=== PATIENT | female | born 1990 | race African-American/Black ===

== ENCOUNTER 2018-07-29 10:29 | Emergency (ER) | payer BC ==
[~2018-07-29] VITALS: Ht 167.6 cm; Wt 113.4 kg
[~2018-07-29 10:29] MED LIST: FERROUS SULFAT325 MG PO; LABETALOL HCL100 MG PO; NIFEDIPINE ER30 M1 PO; PEPCID20 MG PO; ZOFRAN ODT4 MG PO
[2018-07-29] MEDS ORDERED: DEXAMETHASONE SOD PHOS 10 MG/1 ML VIAL INJ ONE (10:45)
[2018-07-29] MEDS ORDERED: SODIUM CHLORIDE 0.9% 1000ML 1,000 ML IV STA (10:45)
[2018-07-29] MEDS ORDERED: IBUPROFEN 600 MG TAB PO STA (10:45)
[2018-07-29] MEDS ORDERED: CEFTRIAXONE SOD 1 GM VIAL IV SCH (11:00)
[2018-07-29 11:28] LABS: BASOPHILS % 0.2 % (0.0-1.0); HEMATOCRIT 31.6 % (34.2-44.1); HEMOGLOBIN 10.1 g/dL (12.0-16.0); LYMPHOCYTES # (AUTO) 1.9 (1.0-3.2); LYMPHOCYTES % 19.3 % (18.0-39.1); MEAN CORPUSCULAR HEMOGLOBIN 30.4 pg (28-32); MEAN CORPUSCULAR VOLUME 95.2 fL (81-99); MONOCYTES # (AUTO) 0.4 (0.2-0.8); MONOCYTES % 4.3 % (4.4-11.3); NEUTROPHILS # (AUTO) 7.3 (2.1-6.9); NEUTROPHILS % 75.8 % (38.7-80.0); PLATELET COUNT 249 x10e3/uL (140-360); RED BLOOD COUNT 3.32 x10e6/uL (3.6-5.1); RED CELL DISTRIBUTION WIDTH 13.5 % (11.7-14.4)
[2018-07-29 11:48] LABS: ALANINE AMINOTRANSFERASE 12 IU/L (0-55); ALBUMIN 2.9 g/dL (3.5-5.0); ALBUMIN/GLOBULIN RATIO 0.5 (0.8-2.0); ALKALINE PHOSPHATASE 20 IU/L (40-150); ANION GAP 8.4 mmol/L (8-16); BLOOD UREA NITROGEN 13 mg/dL (7-26); BUN/CREATININE RATIO 12 (6-25); CALCIUM 8.7 mg/dL (8.4-10.2); CARBON DIOXIDE 26 mmol/L (22-29); CHLORIDE 101 mmol/L (98-107); CREATININE, SERUM 1.11 mg/dL (0.57-1.11); EST GLOMERULAR FILTRATION RATE > 60 ML/MIN (60-); GLUCOSE 124 mg/dL (74-118); LIPASE 52 U/L (8-78); POTASSIUM 3.4 mmol/L (3.5-5.1); SODIUM 132 mmol/L (136-145)
[2018-07-29 12:08] LABS: THYROID STIMULATING HORMONE 4.481 uIU/mL (0.350-4.940)
[2018-07-29 12:09] LABS: STREPTOCOCCUS GRP A ANTIGEN NEGATIVE (NEGATIVE)
[2018-07-29 12:22] LABS: INFLUENZAE A&B ANTIGEN (RAPID) NEGATIVE (NEGATIVE)
[2018-07-29] MEDS ORDERED: ACETAMINOPHEN 325 MG TAB ONE (13:16)
[2018-07-29 13:17] LABS: CLARITY,URINE SL CLOUDY (CLEAR); COLOR,URINE YELLOW (YELLOW); LEUKOCYTE ESTERASE ,URINE TRACE (NEGATIVE); NITRITE,URINE NEGATIVE (NEGATIVE); PROTEIN,URINE DIPSTICK TRACE (NEGATIVE)
[2018-07-29 13:18] LABS: BILIRUBIN,URINE NEGATIVE (NEGATIVE); KETONES,URINE NEGATIVE (NEGATIVE); URINE UROBILINOGEN 0.2 mg/dL (0.2 - 1)
[2018-07-29 13:32] LABS: BACTERIA,URINE RARE /HPF; EPITHELIAL CELLS,URINE FEW /LPF
[2018-07-29] MEDS ORDERED: ACETAMINOPHEN 325 MG TAB PO ONE (14:00)
[2018-07-29 15:03] VITALS: BP 127/90
== END 2018-07-29 15:15 | disposition home or self-care (01) ==
LOC: ER 10:29
DX: R50.9 Fever, unspecified (principal); J02.9 Acute pharyngitis, unspecified; M54.2 Cervicalgia
CPT/HCPCS: 36415; 80053; 81001; 83518; 83690; 84443; 85025; 86308; 87070; 87086; 87400; 99284; J0696; J1100; J7030

== ENCOUNTER 2018-12-14 23:09 | Emergency (ER) | payer BC ==
[~2018-12-14] VITALS: Ht 167.6 cm; Wt 113.4 kg
[2018-12-15 00:41] LABS: CLARITY,URINE CLOUDY (CLEAR); COLOR,URINE YELLOW (YELLOW); LEUKOCYTE ESTERASE ,URINE NEGATIVE (NEGATIVE); NITRITE,URINE NEGATIVE (NEGATIVE)
[2018-12-15 00:42] LABS: BILIRUBIN,URINE NEGATIVE (NEGATIVE); KETONES,URINE NEGATIVE (NEGATIVE); PROTEIN,URINE DIPSTICK TRACE (NEGATIVE); URINE UROBILINOGEN 0.2 mg/dL (0.2 - 1)
[2018-12-15 00:43] LABS: PREGNANCY TEST, URINE NEGATIVE (NEGATIVE)
[2018-12-15 00:44] LABS: BACTERIA,URINE MODERATE /HPF; RBC,URINE >50 /HPF (0-5); WBC,URINE (MAN) 21-50 /HPF (0-5)
[2018-12-15 00:45] LABS: EPITHELIAL CELLS,URINE FEW /LPF
== END 2018-12-15 01:02 | disposition home or self-care (01) ==
LOC: ER 23:09
DX: N64.59 Other signs and symptoms in breast (principal); N30.90 Cystitis, unspecified without hematuria; I10 Essential (primary) hypertension
CPT/HCPCS: 81001; 81025; 99283

== ENCOUNTER 2019-02-09 18:52 | Emergency (ER) | payer BC ==
[~2019-02-09] VITALS: Ht 167.6 cm; Wt 113.4 kg
--- OUTSIDE RECORDS SUMMARY | 2019-02-09 18:54 | XMS REPORT ---
[facility] Address Unknown Phone Unavailable Care Team Providers Care Mononitrotoluene Operator Name Role Phone Unavailable Unavailable Problems This patient has no known problems. Allergies, Adverse Reactions, Alerts This patient has no known allergies or adverse reactions. Medications This patient has no known medications. Results Test Description Test Time Test Comments Text Results Atomic Results Result Comments BREAST ULTRASOUND BILATERAL 2018-12-17 10:04:00 - DIAG MAMM BILATERAL AYESHA CAD DIGITALBILATERAL FIRST EVER DIGITAL DIAGNOSTIC MAMMOGRAM 3D/2D WITH CAD: 12/17/2018CLINICAL: Nipple discharge, right breast, brown. Digital breast tomosynthesis was performed in addition to routine CC and MLO views. Current mammographic images were evaluated by either a [employer] M-Vu or a [employer] ImageChecker CAD (computer aided detection system). No prior exams were av ailable for comparison. This is a baseline exam.There are scattered fibroglandular tissues in both breasts. No suspicious mass, architectural distortion, malignant type calcification, or lymph node abnormality detected. INCOMPLETE ASSESSMENT: ADDITIONAL IMAGING EVALUATION RECOMMENDEDThere is no mammographic evidence of malignancy. Breast ultrasound to follow.- BREAST ULTRASOUND BILATERALULTRASOUND OF BOTH BREASTS: 12/17/2018No prior exams were available for comparison. Real-time ultrasound of both breasts was performed. No abnormalities were seen sonographically in either breast. There is bilateral axillary adenopathy with nodes exhibiting cortical thickening. IMPRESSION: BENIGN No breast abnormality is noted.Evidence of bilateral enlarged axillary lymph nodes exhibiting cortical thickening. The patient relates a history of rheumatoid arthritis, the possible etiology of this finding. Clinical follow up is recommended. There is no sonographic evidence of breast malignancy. Follow- up with ACR guidelines. aNseem Reese M.D. rb/:12/17/2018 10:04:00 Pipe Smoker Machine Operator: Sandra TAY, [facility]-FWletter sent: BIRADS 1-2 Combo FU Letter Mammogram BI-RADS: 0 Indeterminate Ultrasound BI- RADS: 2 Benign DIAG MAMM BILATERAL AYESHA CAD DIGITAL 2018-12-17 10:04:00 - DIAG MAMM BILATERAL AYESHA CAD DIGITALBILATERAL FIRST EVER DIGITAL DIAGNOSTIC MAMMOGRAM 3D/2D WITH CAD: 12/17/2018CLINICAL: Nipple discharge, right breast, brown. Digital breast tomosynthesis was performed in addition to routine CC and MLO views. Current mammographic images were evaluated by either a [employer] M-Vu or a [employer]Checker CAD (computer aided detection system). No prior exams were av ailable for comparison. This is a baseline exam.There are scattered fibroglandular tissues in both breasts. No suspicious mass, architectural distortion, malignant type calcification, or lymph node abnormality detected. INCOMPLETE ASSESSMENT: ADDITIONAL IMAGING EVALUATION RECOMMENDEDThere is no mammographic evidence of malignancy. Breast ultrasound to follow.- BREAST ULTRASOUND BILATERALULTRASOUND OF BOTH BREASTS: 12/17/2018No prior exams were available for comparison. Real-time ultrasound of both breasts was performed. No abnormalities were seen sonographically in either breast. There is bilateral axillary adenopathy with nodes exhibiting cortical thickening. IMPRESSION: BENIGN No breast abnormality is noted.Evidence of bilateral enlarged axillary lymph nodes exhibiting cortical thickening. The patient relates a history of rheumatoid arthritis, the possible etiology of this finding. Clinical follow up is recommended. There is no sonographic evidence of breast malignancy. Follow- up with ACR guidelines. Naseem Reese M.D. rb/:12/17/2018 10:04:00 Pipe Smoker Machine Operator: Sandra TAY, [facility]-FWletter sent: BIRADS 1-2 Combo FU Letter Mammogram BI-RADS: 0 Indeterminate Ultrasound BI- RADS: 2 Benign
[2019-02-09] MEDS ORDERED: ASPIRIN 81 MG CHEW TAB PO ONE (19:30)
[2019-02-09 20:48] LABS: BILIRUBIN,URINE NEGATIVE (NEGATIVE); CLARITY,URINE SL CLOUDY (CLEAR); COLOR,URINE YELLOW (YELLOW); KETONES,URINE NEGATIVE (NEGATIVE); LEUKOCYTE ESTERASE ,URINE NEGATIVE (NEGATIVE); NITRITE,URINE NEGATIVE (NEGATIVE); PROTEIN,URINE DIPSTICK NEGATIVE (NEGATIVE); URINE UROBILINOGEN 0.2 mg/dL (0.2 - 1)
--- NOTE | 2019-02-09 20:49 | Diagnostic Imaging Report ---
EXAMINATION: CHEST SINGLE (PORTABLE) INDICATION: ^CHEST PAIN ^Y COMPARISON: None FINDINGS: AP view TUBES and LINES: None. LUNGS/PLEURA: The lungs are clear. No pleural effusion or pneumothorax. HEART AND MEDIASTINUM: The cardiomediastinal silhouette is unremarkable. BONES AND SOFT TISSUES: No acute osseous lesion. Soft tissues are unremarkable. UPPER ABDOMEN: No free air under the diaphragm. IMPRESSION: No acute thoracic abnormality. Signed by: Aris Camacho MD on 02/09/2019 8:46 PM
[2019-02-09 20:58] LABS: BACTERIA,URINE MANY /HPF; EPITHELIAL CELLS,URINE FEW /LPF; RBC,URINE 21-50 /HPF (0-5)
--- NOTE | 2019-02-09 21:45 | NUR ---
GAVE PERMISSION FOR PT TO TAKE HOME BP MEDICATIONS. PT TOOK NIFEDIPINE 60MG AND LABETOLOL 200MG. BP 165/94; HR 89.
[2019-02-09 22:13] LABS: BASOPHILS % 0.2 % (0.0-1.0); HEMATOCRIT 31.1 % (34.2-44.1); HEMOGLOBIN 9.8 g/dL (12.0-16.0); LYMPHOCYTES # (AUTO) 1.6 (1.0-3.2); LYMPHOCYTES % 34.8 % (18.0-39.1); MEAN CORPUSCULAR HEMOGLOBIN 30.2 pg (28-32); MEAN CORPUSCULAR HGB CONC 31.5 g/dL (31-35); MEAN CORPUSCULAR VOLUME 95.7 fL (81-99); MONOCYTES # (AUTO) 0.3 (0.2-0.8); MONOCYTES % 6.3 % (4.4-11.3); NEUTROPHILS # (AUTO) 2.6 (2.1-6.9); NEUTROPHILS % 58.5 % (38.7-80.0); PLATELET COUNT 230 x10e3/uL (140-360); RED BLOOD COUNT 3.25 x10e6/uL (3.6-5.1); RED CELL DISTRIBUTION WIDTH 13.3 % (11.7-14.4)
[2019-02-09 22:29] LABS: INR 0.94; PROTHROMBIN TIME 13.1 seconds (11.9-14.5)
[2019-02-09 22:30] LABS: PARTIAL THROMBOPLASTIN TIME 26.8 seconds (23.8-35.5)
[2019-02-09 22:38] LABS: ALANINE AMINOTRANSFERASE 15 IU/L (0-55); ALBUMIN 3.5 g/dL (3.5-5.0); ALBUMIN/GLOBULIN RATIO 0.6 (0.8-2.0); ALKALINE PHOSPHATASE 22 IU/L (40-150); ANION GAP 8.5 mmol/L (8-16); BLOOD UREA NITROGEN 15 mg/dL (7-26); BUN/CREATININE RATIO 15 (6-25); CALCIUM 8.8 mg/dL (8.4-10.2); CARBON DIOXIDE 26 mmol/L (22-29); CHLORIDE 103 mmol/L (98-107); CREATINE KINASE 274 IU/L (29-168); CREATININE, SERUM 0.97 mg/dL (0.57-1.11); EST GLOMERULAR FILTRATION RATE > 60 ML/MIN (60-); GLUCOSE 87 mg/dL (74-118); POTASSIUM 3.5 mmol/L (3.5-5.1); SODIUM 134 mmol/L (136-145)
[2019-02-09 23:19] VITALS: BP 151/92
== END 2019-02-09 23:23 | disposition home or self-care (01) ==
LOC: ER 18:52
DX: R42 Dizziness and giddiness (principal); R51 Headache; I10 Essential (primary) hypertension; D50.0 Iron deficiency anemia secondary to blood loss (chronic)
CPT/HCPCS: 36415; 71045; 80053; 81001; 81025; 82550; 82553; 83880; 84484; 85025; 85610; 85730; 93005; 99283

== ENCOUNTER 2019-07-22 08:06 | Observation (INO) | payer BC ==
[~2019-07-22] VITALS: Ht 167.6 cm; Wt 122.5 kg
[2019-07-22] MEDS ORDERED: SODIUM CHLORIDE 0.9% 1000ML 1,000 ML IV STA (08:38)
[2019-07-22] MEDS ORDERED: KETOROLAC TROMETHAMINE 30 MG/ML VIAL IV STA (08:38)
[2019-07-22 08:41] LABS: BILIRUBIN,URINE NEGATIVE (NEGATIVE); CLARITY,URINE CLEAR (CLEAR); COLOR,URINE YELLOW (YELLOW); KETONES,URINE NEGATIVE (NEGATIVE); LEUKOCYTE ESTERASE ,URINE NEGATIVE (NEGATIVE); NITRITE,URINE NEGATIVE (NEGATIVE); PREGNANCY TEST, URINE NEGATIVE (NEGATIVE); PROTEIN,URINE DIPSTICK NEGATIVE (NEGATIVE); URINE UROBILINOGEN 0.2 mg/dL (0.2 - 1)
[2019-07-22] MEDS ORDERED: LABETALOL HCL 200 MG TAB PO ONE (08:45)
[2019-07-22 09:04] LABS: BASOPHILS % 0.3 % (0.0-1.0); HEMATOCRIT 30.1 % (34.2-44.1); LYMPHOCYTES # (AUTO) 1.4 (1.0-3.2); LYMPHOCYTES % 35.8 % (18.0-39.1); MEAN CORPUSCULAR HEMOGLOBIN 30.7 pg (28-32); MEAN CORPUSCULAR HGB CONC 33.2 g/dL (31-35); MEAN CORPUSCULAR VOLUME 92.3 fL (81-99); MONOCYTES # (AUTO) 0.3 (0.2-0.8); MONOCYTES % 6.8 % (4.4-11.3); NEUTROPHILS # (AUTO) 2.3 (2.1-6.9); NEUTROPHILS % 57.1 % (38.7-80.0); PLATELET COUNT 183 x10e3/uL (140-360); RED BLOOD COUNT 3.26 x10e6/uL (3.6-5.1); RED CELL DISTRIBUTION WIDTH 13.2 % (11.7-14.4)
[2019-07-22 09:08] LABS: BACTERIA,URINE RARE /HPF; EPITHELIAL CELLS,URINE FEW /LPF; RBC,URINE 0-5 /HPF (0-5); WBC,URINE (MAN) 0-5 /HPF (0-5)
[2019-07-22 09:31] LABS: ALANINE AMINOTRANSFERASE 13 IU/L (0-55); ALBUMIN 3.3 g/dL (3.5-5.0); ALBUMIN/GLOBULIN RATIO 0.6 (0.8-2.0); ALKALINE PHOSPHATASE 18 IU/L (40-150); ANION GAP 7.7 mmol/L (8-16); BLOOD UREA NITROGEN 12 mg/dL (7-26); BUN/CREATININE RATIO 12 (6-25); CALCIUM 8.9 mg/dL (8.4-10.2); CARBON DIOXIDE 27 mmol/L (22-29); CHLORIDE 102 mmol/L (98-107); CREATININE, SERUM 1.04 mg/dL (0.57-1.11); EST GLOMERULAR FILTRATION RATE > 60 ML/MIN (60-); GLUCOSE 96 mg/dL (74-118); POTASSIUM 3.7 mmol/L (3.5-5.1); SODIUM 133 mmol/L (136-145)
[2019-07-22] MEDS ORDERED: DIATRIZOATE MEGL/DIATRIZOA SOD 30 ML BTL PO ONE (09:39)
[2019-07-22 10:01] LABS: LYMPHOCYTES % (MANUAL) 32 % (19-48); MONOCYTES % (MANUAL) 5 % (3.4-9.0); NEUTROPHILS % (MANUAL) 62 % (40-74)
[2019-07-22 10:03] LABS: PLATELET ESTIMATE ADEQUATE
[2019-07-22 10:04] LABS: PLATELET MORPHOLOGY COMMENT NORMAL; POIKILOCYTOSIS SLIGHT; RBC MORPHOLOGY COMMENT ABNORMAL; STOMATOCYTES SLIGHT
--- NOTE | 2019-07-22 10:43 | Diagnostic Imaging Report ---
Exam: Pelvic ultrasound. History: Lower abdominal pain, pelvic pain Comparison: <None.> Findings: Transabdominal and endovaginal sonographic evaluation of the pelvis. The uterus is anteverted in position, measuring 11.3 x 6.1 x 6.9cm. No uterine mass. Endometrial stripe thickness is 4 millimeters. The right ovary measures 3.8 x 2.1 x 1.8 cm and appears unremarkable. Normal arterial and venous waveform. The left ovary is enlarged, measuring 4.9 x 3.8 x 3.5 cm. There is coarse left ovarian echotexture and no discernible arterial waveform. Peripheral 3.2 x 2.1 x 3.7 cm hypoechoic area within the ovary, possibly reflecting peripheral displacement of follicles. Multiple small subcentimeter nabothian cysts in the cervix. Small volume free fluid in the pelvis. Impression: Enlarged left ovary with coarse echotexture, no discernible arterial waveform and possible peripheral displacement of follicles is concerning for left ovarian torsion. Small volume free fluid in the pelvis. Normal right ovary. Normal uterus. The above critical findings were discussed with Dr. Coburn on 07/22/2019 10:26 AM, who responded indicating that the communication was understood. Signed by: Liberty Melendez MD on 07/22/2019 10:40 AM
[2019-07-22] MEDS ORDERED: SODIUM CHLORIDE 0.9% 1000ML 1,000 ML IV ONE (11:15)
[2019-07-22] MEDS ORDERED: MORPHINE SULFATE 2 MG/ML SYR 1ML IV PRN (11:15)
--- NOTE | 2019-07-22 11:24 | Diagnostic Imaging Report ---
EXAM: CT Abdomen and Pelvis WITH intravenous contrast INDICATION: Pelvic pain COMPARISON: Pelvic ultrasound of earlier the same day. TECHNIQUE: Abdomen and pelvis were scanned utilizing a multidetector helical scanner from the lung base to the pubic symphysis after administration of IV contrast. Coronal and sagittal reformations were obtained. Routine protocol was performed. Scan was performed during portal venous phase. IV CONTRAST: 100mL of Isovue 370 ORAL CONTRAST: Water RADIATION DOSE: Total DLP: 876.9 mGy*cm Dose modulation, iterative reconstruction, and/or weight based adjustment of the mA/kV was utilized to reduce the radiation dose to as low as reasonably achievable. FINDINGS: LOWER THORAX: Normal. HEPATOBILIARY: No focal hepatic lesions. No biliary ductal dilatation. The gallbladder appears unremarkable. SPLEEN: No splenomegaly. PANCREAS: No focal masses or ductal dilatation. ADRENALS: No adrenal nodules. KIDNEYS/URETERS: No hydronephrosis, stones, or solid mass lesions. PELVIC ORGANS/BLADDER: The left ovary is enlarged, measuring up to 5.9 cm maximum diameter, and appears hypoenhancing. PERITONEUM / RETROPERITONEUM: Small volume free fluid in the pelvis. LYMPH NODES: Bilateral enlarged inguinal lymph nodes measure up to 1.5 cm short axis. Left pelvic sidewall lymph nodes measure up to 1.5 cm short axis. VESSELS: Unremarkable. GI TRACT: No abnormal bowel wall thickening. No bowel obstruction. Diverticulosis without CT evidence of diverticulitis. Normal appendix. BONES AND SOFT TISSUES: No acute osseous injury. No suspicious lytic or blastic lesions. IMPRESSION: Enlarged hypoenhancing left ovary measuring up to 5.9 cm. This supports the findings of pelvic ultrasound of earlier the same day which are concerning for left ovarian torsion. Small volume free fluid in the pelvis. Bilateral inguinal lymphadenopathy and left pelvic sidewall lymphadenopathy, likely reactive. Signed by: Liberty Melendez MD on 07/22/2019 11:21 AM
[2019-07-22 11:28] LABS: INR 1.02; PROTHROMBIN TIME 13.9 seconds (11.9-14.5)
[2019-07-22 11:29] LABS: PARTIAL THROMBOPLASTIN TIME 28.9 seconds (23.8-35.5)
[2019-07-22 13:00] VITALS: BP 158/95
[2019-07-22 14:12] VITALS: BP 158/95
[2019-07-22 15:46] VITALS: BP 129/75
[2019-07-22] MEDS: ONDANSETRON HCL INJ 2MG/ML 2ML 2 MG/ML VIAL IV PRN (16:40)
[2019-07-22] MEDS: MORPHINE SULFATE INJ 4 MG/ML INJ 1ML IV PRN (16:40)
--- NOTE | 2019-07-22 19:37 | NUR ---
RECEIVED PT IN BED AOX3 .DENIES PAIN /LEFT AC 20G S/L RESPIRATIONS ARE EVEN AND UNLABORED .CALL LIGHT WITH IN REACH .CONTINUE TO MONITOR
[2019-07-22 20:00] VITALS: BP 130/72
[2019-07-23] VITALS (8 sets, daily range): BP systolic 117–148; BP diastolic 75–93
[2019-07-23 05:37] LABS: BASOPHILS % 0.3 % (0.0-1.0); HEMATOCRIT 30.6 % (34.2-44.1); LYMPHOCYTES # (AUTO) 1.3 (1.0-3.2); MEAN CORPUSCULAR HEMOGLOBIN 30.3 pg (28-32); MEAN CORPUSCULAR HGB CONC 32.7 g/dL (31-35); MEAN CORPUSCULAR VOLUME 92.7 fL (81-99); MONOCYTES # (AUTO) 0.4 (0.2-0.8); MONOCYTES % 10.3 % (4.4-11.3); NEUTROPHILS # (AUTO) 1.7 (2.1-6.9); NEUTROPHILS % 50.4 % (38.7-80.0); PLATELET COUNT 153 x10e3/uL (140-360); RED CELL DISTRIBUTION WIDTH 13.4 % (11.7-14.4)
[2019-07-23 06:02] LABS: ALANINE AMINOTRANSFERASE 11 IU/L (0-55); ALBUMIN/GLOBULIN RATIO 0.6 (0.8-2.0); ALKALINE PHOSPHATASE 16 IU/L (40-150); ANION GAP 9.6 mmol/L (8-16); BLOOD UREA NITROGEN 11 mg/dL (7-26); BUN/CREATININE RATIO 11 (6-25); CALCIUM 8.8 mg/dL (8.4-10.2); CARBON DIOXIDE 25 mmol/L (22-29); CHLORIDE 104 mmol/L (98-107); CREATININE, SERUM 1.01 mg/dL (0.57-1.11); EST GLOMERULAR FILTRATION RATE > 60 ML/MIN (60-); GLUCOSE 82 mg/dL (74-118); POTASSIUM 3.6 mmol/L (3.5-5.1); SODIUM 135 mmol/L (136-145)
--- NOTE | 2019-07-23 06:35 | NUR ---
PT RESTED DURING THE NIGHT .DENIES PAIN . Luly LEVINE DID NOT SEE THE PATIENT CALL LIGHT WITH IN REACH .CONTINUE TO MONITOR
--- NOTE | 2019-07-23 06:37 | NUR ---
PT ABD IS DISTENDED .GIVEN MOLASSES ENEMA ABS WAS GIVEN .PT HAD 4 BIG BM .NOTIFIED DR GASTON ABOUT THE OVER DISTENTION OF THE ABD . SAID HE WILL SEE HER TODAY .PT RESTING IV INFUSING .CALL LIGHT WITH IN REACH .CONTINUE TO MONITOR Addendum: 07/23/19 at 0700 by Olvin Bowden RN WRONG PT
--- NOTE | 2019-07-23 07:00 | NUR ---
RECEIVED AM REPORT AND ROUNDS DONE. PT IS ALERT RESTING IN BED, NO S/S OF DISTRESS. CALL LIGHT WITHIN REACH AND INSTRUCTED PT TO CALL NURSE FOR HELP
--- NOTE | 2019-07-23 07:02 | NUR ---
BEDSIDE REPORT GIVEN THE ONCOMING NURSE.
--- NOTE | 2019-07-23 07:33 | NUR ---
H&P PRIMARY CARE PHYSICIAN: Stephen Crocker MD, PhD. CHIEF COMPLAINT: Pelvic pain HISTORY OF PRESENT ILLNESS: This is a 28-year-old woman who developed pelvic pain, with mild nausea; Here suspected ovarian torsion; general partner consulted. PAST MEDICAL HISTORY: Intermittent headaches, epistaxis, severe anemia s/p transfusion, Severe obesity PAST SURGICAL HISTORY: . ALLERGIES: PER ELECTRONIC MEDICAL RECORD. FAMILY/SOCIAL HISTORY: The patient is . She has 2 children. No alcohol, illicits or cigarettes. MEDICATIONS: Per electronic medical record. REVIEW OF SYSTEMS: Denies any dizziness, chest pain, shortness of breath, fever, chills, sweats, nausea, vomiting, diarrhea, headache. PHYSICAL EXAMINATION VITAL SIGNS: Have been reviewed. GENERAL: A tired-appearing woman resting in bed. HEENT: Anicteric. CARDIOVASCULAR: Normal S1 and S2. LUNGS: Moderate breath sounds. No wheezing. ABDOMEN: mildly tender left pelvic region EXTREMITIES: No edema or calf tenderness. NEUROLOGICAL: Alert and oriented times 3. She moves all extremities. SKIN: Dry. PSYCHIATRIC: Normal affect. LABS: Reviewed. MEDICATIONS: Reviewed. ASSESSMENT: 28yoF Left ovarian torsion Pelvic LAD Leukopenia Anemia Severe obesity BMI 43.6 PLAN TYPEWRITER TESTER eval IVF hab1c/lipids SCD Stephen Crocker MD, PhD.
--- NOTE | 2019-07-23 08:11 | NUR ---
CALLED AND LEFT MESSAGE FOR DR DOSS PERTAINING TO PT'S DIET
[2019-07-23 08:27] LABS: CHOL/HDL RATIO 4.6 (3.0-3.6)
[2019-07-23] MEDS: NIFEDIPINE CR 30 MG TAB PO SCH (09:00)
[2019-07-23] MEDS: FERROUS SULFATE 325 MG TAB PO SCH ×2 (09:00→17:00)
[2019-07-23] MEDS: FAMOTIDINE 20 MG TAB PO SCH ×2 (09:00→16:30)
[2019-07-23] MEDS: LABETALOL HCL 100 MG TAB PO SCH (09:00)
[2019-07-23] MEDS: SODIUM CHLORIDE 0.9% 1000ML 1,000 ML IV SCH (10:00)
--- NOTE | 2019-07-23 10:45 | Consultation ---
DATE OF CONSULTATION: 07/23/2019 HISTORY OF PRESENT ILLNESS: She is a 28-year-old, 2, para 2, previous section x2, who came in last menstrual period on 07/05/2019, came into the hospital complaining of left lower quadrant pain for five days, getting worse for which she came to the ER. Her pain is not provoked or relieved by anything that she knows. Her bowel movements are normal. She has no nausea, no vomiting. No dysuria. Her last Pap smear was this month. She had a history also of herpes in the past. No outbreaks in the last 8 to 9 years. PAST MEDICAL HISTORY: Significant for high blood pressure. PAST SURGICAL HISTORY: section x2. ALLERGIES: ALLERGIC TO LEVAQUIN. PHYSICAL EXAMINATION: VITAL SIGNS: Stable. CHEST: Clear to auscultation. CARDIOVASCULAR: Regular rate and rhythm. ABDOMEN: Soft, nontender, but the patient had narcotics recently. REVIEW OF SYSTEMS: She denies any cardiovascular, respiratory, renal, gastrointestinal, hemopoietic, or musculoskeletal problems. ASSESSMENT AND PLAN: The patient's ultrasound showed enlarged left ovary for possible left ovarian torsion. Accordingly, the patient was offered diagnostic laparoscopy. Risks and potential complications were all explained to the patient. The patient understands fully. She will be coming to have her procedure done in due course. Damaris Sutton MD DD/ZACH /[id number]
[2019-07-23 11:13] LABS: BILIRUBIN,URINE NEGATIVE (NEGATIVE); CLARITY,URINE SL CLOUDY (CLEAR); COLOR,URINE YELLOW (YELLOW); KETONES,URINE NEGATIVE (NEGATIVE); LEUKOCYTE ESTERASE ,URINE NEGATIVE (NEGATIVE); NITRITE,URINE NEGATIVE (NEGATIVE); PROTEIN,URINE DIPSTICK NEGATIVE (NEGATIVE); URINE UROBILINOGEN 1 mg/dL (0.2 - 1)
[2019-07-23 11:32] LABS: EPITHELIAL CELLS,URINE MODERATE /LPF; RBC,URINE 0-5 /HPF (0-5)
[2019-07-23 11:33] LABS: BACTERIA,URINE MANY /HPF
[2019-07-23] MEDS: ONDANSETRON HCL INJ 2MG/ML 2ML 2 MG/ML VIAL IV PRN ×2 (11:34→21:15)
[2019-07-23] MEDS: MORPHINE SULFATE INJ 4 MG/ML INJ 1ML IV PRN (11:34)
[2019-07-23 12:27] LABS: LYMPHOCYTES % (MANUAL) 19 % (19-48); MONOCYTES % (MANUAL) 7 % (3.4-9.0); NEUTROPHILS % (MANUAL) 74 % (40-74)
[2019-07-23 12:28] LABS: ANISOCYTOSIS SLIGHT; PLATELET ESTIMATE ADEQUATE; PLATELET MORPHOLOGY COMMENT NORMAL; POIKILOCYTOSIS SLIGHT; RBC MORPHOLOGY COMMENT NORMAL
[2019-07-23 12:40] LABS: OVALOCYTES FEW
[2019-07-23] MEDS ORDERED: BUPIVACAINE 0.25%/EPI 30ML SDV INJ ONE (14:23)
[2019-07-23] MEDS ORDERED: SEVOFLURANE INHAL SOLN 250 ML PEN BTL ONE (15:01)
[2019-07-23] MEDS ORDERED: ROCURONIUM BROMIDE 10 MG/ML 5ML VIAL ONE (15:01)
[2019-07-23] MEDS ORDERED: SUCCINYLCHOLINE 200 MG/10 ML SYR ONE (15:01)
[2019-07-23] MEDS ORDERED: ACETAMINOPHEN 1000 MG/100 ML IV ONE (15:01)
[2019-07-23] MEDS ORDERED: ONDANSETRON HCL INJ 2MG/ML 2ML 2 MG/ML VIAL ONE (15:01)
[2019-07-23] MEDS ORDERED: LIDOCAINE HCL 2% LOCAL INJ 5 ML SDV VIAL INJ ONE (15:01)
[2019-07-23] MEDS ORDERED: FENTANYL CITRATE/PF 100MCG/2 ML INJ ONE (15:01)
[2019-07-23] MEDS ORDERED: DEXAMETHASONE SOD PHOS INJ 4 MG/ML VIAL ONE (15:01)
[2019-07-23] MEDS ORDERED: PROPOFOL IV EMULSION 10 MG/ML 20 ML VIAL ONE (15:01)
[2019-07-23] MEDS ORDERED: MIDAZOLAM HCL 2 MG/2 ML VIAL ONE (15:01)
[2019-07-23] MEDS ORDERED: SUGAMMADEX SODIUM 200 MG/2 ML VIAL IV ONE (15:56)
[2019-07-23] MEDS ORDERED: KETOROLAC TROMETHAMINE 30 MG/ML VIAL ONE (18:03)
[2019-07-23] MEDS ORDERED: HYDROMORPHONE 1MG/1ML INJ ONE (18:09)
[2019-07-23] MEDS ORDERED: KETOROLAC TROMETHAMINE 30 MG/ML VIAL IM ONE (18:30)
--- NOTE | 2019-07-23 19:30 | NUR ---
Patient received sitting up in bed. AAO x 4. Patient had no complaints of pain. No signs of respiratory distress. Fall precautions implemented. Patient instructed to call for assistance or request her pain medication when needed. Call light within reach.
[2019-07-24] VITALS: BP 114/71
[2019-07-24] MEDS: MORPHINE SULFATE INJ 4 MG/ML INJ 1ML IV PRN (03:09)
[2019-07-24 04:00] VITALS: BP 130/80
[2019-07-24] MEDS: SODIUM CHLORIDE 0.9% 1000ML 1,000 ML IV SCH (04:00)
[2019-07-24] MEDS: LABETALOL HCL 100 MG TAB PO SCH (05:29)
[2019-07-24] MEDS: NIFEDIPINE CR 30 MG TAB PO SCH (05:29)
--- NOTE | 2019-07-24 07:15 | NUR ---
Patient resting comfortably. Walking rounds done. Shift report given to oncoming nurse.
[2019-07-24 07:45] VITALS: BP 115/65
[2019-07-24] MEDS: FAMOTIDINE 20 MG TAB PO SCH (08:19)
[2019-07-24] MEDS: FERROUS SULFATE 325 MG TAB PO SCH (08:19)
[2019-07-24 09:30] VITALS: BP 115/65
[2019-07-24] MEDS ORDERED: TYLENOL WITH C1 EACH PO (09:47)
--- NOTE | 2019-07-24 15:17 | Operative Report ---
DATE OF PROCEDURE: SURGEON: Damaris Sutton MD PREOPERATIVE DIAGNOSES: Pelvic pain, torsion of the left ovary. POSTOPERATIVE DIAGNOSES: Pelvic pain, torsion of the left ovary. PROCEDURES: Laparoscopy and left salpingo-oophorectomy. COMPLICATIONS: None. ESTIMATED BLOOD LOSS: Minimal. PROCEDURE IN DETAIL: The patient was taken to the OR. General anesthesia was induced. She was prepped and draped in a normal sterile fashion, placed in dorsal lithotomy position. HUMI self-retaining uterine manipulator was passed through the cervix and into the uterine cavity for manipulation. Uterus was felt enlarged, mobile. No adnexal masses. Following this, 2 Allis clamps were applied to the umbilicus and infraumbilical skin incision was made with a scalpel and bladeless trocar, and cannula of 10 mm was inserted inside the abdominal cavity. Trocar was removed and scope was passed through the sleeve into the abdominal cavity. Two other ports were made in the right side of the abdomen after making 5 mm skin incision with a scalpel and 5 mm bladeless trocar and cannula was passed through the abdominal wall into the abdominal cavity. Another 3rd port was made on the left side of the abdomen after making 5 mm skin incision with scalpel and 5 mm bladeless trocar was passed through the abdominal wall into the abdominal cavity under direct visualization. Trocars were removed and 2 other graspers were inserted inside the abdomen and LigaSure. The following findings, enlarged uterus. Normal right tube and ovary. Left tube and ovary were twisted and adherent to the caudal part of the posterior leaflet of the broad ligament, enlarged hemorrhagic cyst was seen on the left ovary. Started with removing the cyst and adhesions using the LigaSure. Hemostasis was found to be adequate. The blood came out of the ovarian cyst, however, untwisting of the pedicle of the ovary was not successful and accordingly decision was made to carry on with left salpingo-oophorectomy. This was performed uneventfully using LigaSure. Suction irrigation of peritoneal cavity with warm saline. Following this, a 5 mm scope was passed through the side port and EndoCatch was passed through the umbilicus, opened, specimen was placed in the EndoCatch, closed and removed under direct visualization from the umbilical incision. The rectus fascia was approximated at the umbilicus using Vicryl 0 and skin was closed with subcu Vicryl 4-0 and Dermabond at the 4 sites. The patient tolerated the procedure well. Lap, instrument, and needle count was correct x2 at the end of the procedure. Damaris Sutton MD DD/ZACH /[id number]
[2019-07-24] MEDS ORDERED: LABETALOL HCL 100 MG TAB PO SCH (17:30)
[2019-07-24] MEDS ORDERED: NIFEDIPINE CR 30 MG TAB PO SCH (17:30)
== END 2019-07-24 10:09 | disposition home or self-care (01) ==
LOC: ER 08:06 → INTOOBSV 11:13 → ERHOLD 11:13 → MED/SURG2 13:13
PROVIDERS: ADMIT Internal Medicine; ATTEND Internal Medicine
DX: N83.12 Corpus luteum cyst of left ovary (principal); I10 Essential (primary) hypertension; Z82.49 Family history of ischemic heart disease and other diseases of the circulatory system; Z88.1 Allergy status to other antibiotic agents
CPT/HCPCS: 36415 ×2; 58661; 74177; 76830; 76856; 80053 ×2; 80061; 81001 ×2; 81025; 83036; 85025 ×2; 85610; 85730; 87040; 87086; 88305; 93976; 99284; G0378 ×3; J0131; J1100; J1170; J1885 ×2; J2001; J2250; J2270 ×3; J2405 ×2; J2704; J3010; J7030 ×2; 88304

== ENCOUNTER 2019-11-23 18:09 | Emergency (ER) | payer BC ==
[~2019-11-23] VITALS: Ht 167.6 cm; Wt 115.7 kg
[~2019-11-23 18:09] MED LIST changes: +TYLENOL WITH C1 EACH PO
[2019-11-23] MEDS ORDERED: HYDRALAZINE HCL 20 MG/ML VIAL IV STA (18:30)
[2019-11-23] MEDS ORDERED: IBUPROFEN 600 MG TAB PO STA (18:38)
--- NOTE | 2019-11-23 19:04 | Diagnostic Imaging Report ---
Examination: Single AP view of the chest. COMPARISON: None. INDICATION: Chest tightness DISCUSSION: Lines/tubes: None. Lungs: The lungs are well inflated and clear. No pneumonia or pulmonary edema. Pleura: No pleural effusion or pneumothorax. Heart and mediastinum: The heart and the mediastinum are unremarkable. Bones and soft tissues: No acute bony abnormalities. IMPRESSION: 1. No acute cardiopulmonary abnormalities. Signed by: Dr. Ubaldo Cooper M.D. on 11/23/2019 7:01 PM
[2019-11-23 20:03] LABS: BASOPHILS % 0.2 % (0.0-1.0); EOSINOPHILS % 0.2 % (0.0-6.0); HEMATOCRIT 31.4 % (34.2-44.1); HEMOGLOBIN 10.3 g/dL (12.0-16.0); LYMPHOCYTES # (AUTO) 0.9 (1.0-3.2); LYMPHOCYTES % 13.8 % (18.0-39.1); MEAN CORPUSCULAR HGB CONC 32.8 g/dL (31-35); MEAN CORPUSCULAR VOLUME 91.5 fL (81-99); MONOCYTES # (AUTO) 0.3 (0.2-0.8); MONOCYTES % 4.2 % (4.4-11.3); NEUTROPHILS # (AUTO) 5.1 (2.1-6.9); NEUTROPHILS % 81.3 % (38.7-80.0); PLATELET COUNT 196 x10e3/uL (140-360); RED BLOOD COUNT 3.43 x10e6/uL (3.6-5.1); RED CELL DISTRIBUTION WIDTH 13.6 % (11.7-14.4)
[2019-11-23 20:17] LABS: INR 0.98; PROTHROMBIN TIME 13.6 seconds (11.9-14.5)
[2019-11-23 20:18] LABS: PARTIAL THROMBOPLASTIN TIME 27.9 seconds (23.8-35.5)
[2019-11-23 20:21] LABS: ANION GAP 7.9 mmol/L (8-16); BLOOD UREA NITROGEN 12 mg/dL (7-26); BUN/CREATININE RATIO 11 (6-25); CALCIUM 8.8 mg/dL (8.4-10.2); CARBON DIOXIDE 28 mmol/L (22-29); CHLORIDE 100 mmol/L (98-107); CREATININE, SERUM 1.06 mg/dL (0.57-1.11); EST GLOMERULAR FILTRATION RATE > 60 ML/MIN (60-); GLUCOSE 97 mg/dL (74-118); POTASSIUM 3.9 mmol/L (3.5-5.1); SODIUM 132 mmol/L (136-145)
[2019-11-23 21:03] LABS: CREATINE KINASE 397 IU/L (29-168)
[2019-11-23 21:21] LABS: BILIRUBIN,URINE NEGATIVE (NEGATIVE); CLARITY,URINE SL CLOUDY (CLEAR); COLOR,URINE YELLOW (YELLOW); KETONES,URINE NEGATIVE (NEGATIVE); LEUKOCYTE ESTERASE ,URINE NEGATIVE (NEGATIVE); NITRITE,URINE NEGATIVE (NEGATIVE); PROTEIN,URINE DIPSTICK 1+ (NEGATIVE); URINE UROBILINOGEN 1 mg/dL (0.2 - 1)
[2019-11-23 21:27] LABS: BACTERIA,URINE RARE /HPF; EPITHELIAL CELLS,URINE MODERATE /LPF
[2019-11-23 21:36] VITALS: BP 169/99
== END 2019-11-23 21:38 | disposition home or self-care (01) ==
LOC: ER 18:09
DX: R50.9 Fever, unspecified (principal); R05 Cough; J06.9 Acute upper respiratory infection, unspecified; J02.9 Acute pharyngitis, unspecified
CPT/HCPCS: 36415; 71045; 80048; 81001; 82550; 82553; 83518; 84484; 84702; 85025; 85610; 85730; 87070; 87086; 87400; 93005; 99284; J0360

== ENCOUNTER 2019-11-24 20:23 | Emergency (ER) | payer BC ==
[~2019-11-24] VITALS: Ht 167.6 cm; Wt 115.7 kg
[2019-11-24] MEDS ORDERED: ACETAMINOPHEN 325 MG TAB PO ONE (21:30)
[2019-11-24 21:43] LABS: STREPTOCOCCUS GRP A ANTIGEN NEGATIVE (NEGATIVE)
[2019-11-24 21:50] LABS: INFLUENZAE A&B ANTIGEN (RAPID) NEGATIVE (NEGATIVE)
--- NOTE | 2019-11-24 22:20 | Diagnostic Imaging Report ---
EXAMINATION: CHEST SINGLE (NOT PORTABLE) INDICATION: Fever and cough. COMPARISON: 11/23/2019. FINDINGS: TUBES and LINES: None. LUNGS: Lungs are well inflated. Mild perihilar, peribronchial thickening and perihilar streaky densities may reflect viral infection versus reactive airway disease. Increased mild patchy density in the lung bases, left greater than right. Mild prominence of the pulmonary vasculature bilaterally. PLEURA: No pleural effusion or pneumothorax. HEART AND MEDIASTINUM: The cardiac silhouette is mildly enlarged. BONES AND SOFT TISSUES: No acute osseous lesion. Soft tissues are unremarkable. UPPER ABDOMEN: No free air under the diaphragm. IMPRESSION: Mild viral infection versus reactive airway disease. Focal patchy density in the left lung base may represent atelectasis versus developing pneumonia in the proper clinical setting. Signed by: Dr. Maddy Burleson M.D. on 11/24/2019 10:16 PM
== END 2019-11-24 23:34 | disposition home or self-care (01) ==
LOC: ER 20:23
DX: R50.9 Fever, unspecified (principal); R05 Cough; J11.1 Influenza due to unidentified influenza virus with other respiratory manifestations
CPT/HCPCS: 71045; 83518; 87070; 87400; 99283

== ENCOUNTER 2019-11-27 17:02 | Inpatient (IN) | payer BC, OTHER ==
[~2019-11-27] VITALS: Ht 170.2 cm; Wt 121.6 kg
[2019-11-27] MEDS ORDERED: ALBUTEROL SULF 0.083% NEB SOLN 3 ML NEB NEB STA (18:11)
[2019-11-27] MEDS ORDERED: IPRATROPIUM BROMIDE 0.02% 2.5 ML NEB NEB STA (18:11)
[2019-11-27] MEDS ORDERED: ACETAMINOPHEN/CODEINE ELIX 120-12 MG/5 ML UDC PO ONE (18:15)
[2019-11-27] MEDS ORDERED: CEFTRIAXONE SOD 1 GM/NS 50 ML 50 ML IV STA (18:18)
[2019-11-27] MEDS ORDERED: AZITHROMYCIN 500MG/NS 250 ML 250 ML IV STA (18:18)
[2019-11-27] MEDS ORDERED: ACETAMINOPHEN 325 MG TAB PO ONE (18:30)
[2019-11-27 18:49] LABS: BASOPHILS % 0.2 % (0.0-1.0); HEMATOCRIT 30.4 % (34.2-44.1); HEMOGLOBIN 9.7 g/dL (12.0-16.0); LYMPHOCYTES # (AUTO) 1.6 (1.0-3.2); LYMPHOCYTES % 37.6 % (18.0-39.1); MEAN CORPUSCULAR HEMOGLOBIN 29.6 pg (28-32); MEAN CORPUSCULAR HGB CONC 31.9 g/dL (31-35); MEAN CORPUSCULAR VOLUME 92.7 fL (81-99); MONOCYTES # (AUTO) 0.2 (0.2-0.8); MONOCYTES % 4.5 % (4.4-11.3); NEUTROPHILS # (AUTO) 2.4 (2.1-6.9); NEUTROPHILS % 57.5 % (38.7-80.0); PLATELET COUNT 210 x10e3/uL (140-360); RED BLOOD COUNT 3.28 x10e6/uL (3.6-5.1)
[2019-11-27 19:09] LABS: ALANINE AMINOTRANSFERASE 34 IU/L (0-55); ALBUMIN/GLOBULIN RATIO 0.5 (0.8-2.0); ALKALINE PHOSPHATASE 19 IU/L (40-150); BLOOD UREA NITROGEN 13 mg/dL (7-26); BUN/CREATININE RATIO 13 (6-25); CALCIUM 8.1 mg/dL (8.4-10.2); CARBON DIOXIDE 25 mmol/L (22-29); CHLORIDE 104 mmol/L (98-107); CREATININE, SERUM 0.97 mg/dL (0.57-1.11); EST GLOMERULAR FILTRATION RATE > 60 ML/MIN (60-); GLUCOSE 125 mg/dL (74-118); SODIUM 135 mmol/L (136-145)
[2019-11-27] MEDS: SODIUM CHLORIDE 0.9% 1000ML 1,000 ML IV SCH (19:45)
[2019-11-27 20:28] LABS: STREPTOCOCCUS GRP A ANTIGEN NEGATIVE (NEGATIVE)
[2019-11-27 20:37] LABS: INFLUENZAE A&B ANTIGEN (RAPID) NEGATIVE (NEGATIVE)
--- NOTE | 2019-11-27 21:04 | Diagnostic Imaging Report ---
EXAM: CT Chest WITH contrast 11/27/2019 6:11 PM INDICATION: Fever, cough, dyspnea COMPARISON: Chest x-ray, 11/24/2019 TECHNIQUE: Chest was scanned utilizing a multidetector helical scanner from the lung apex through the level of the diaphragm after administration of IV contrast. Thin section reconstructions were obtained with special concentration on the pulmonary arteries. Coronal and sagittal reformations were obtained. Pulmonary embolism protocol was performed. Dose modulation, iterative reconstruction, and/or weight based adjustment of the mA/kV was utilized to reduce the radiation dose to as low as reasonably achievable IV CONTRAST: 100 cc Isovue-370 RADIATION DOSE: Total DLP: 528.33 mGy*cm Estimated effective dose: (DLP x 0.014 x size factor) mSv COMPLICATIONS: None FINDINGS: Examination is somewhat compromised by motion artifact and tissue attenuation artifact. LINES/ TUBES: None. LUNGS AND AIRWAYS: No filling defect is identified within the pulmonary arteries to the segmental level. There are widespread groundglass and tree-in-bud opacities in the upper and lower lobes bilaterally, with dense consolidation seen in the medial right lower lobe and in the lingula. In some areas the opacities appear nodular, measuring 0.6 cm in the right upper lobe (2/51), 1.0 cm in the right lower lobe (2/72), and 1.0 cm in the left upper lobe (2/49) trachea and main bronchi are clear. PLEURA: There is trace right pleural effusion. No pneumothorax. HEART AND MEDIASTINUM: The thyroid gland is normal. There are mildly prominent hilar nodes measuring 0.8 cm on the left and 1.3 cm on the right. There is extensive axillary lymphadenopathy with nodes on the right measuring 2.8 and 1.9 cm short axis, and nodes on the left measuring 1.9 and 2.3 cm with additional slightly smaller nodes present bilaterally. The heart is normal in size.. There is no pericardial effusion. The thoracic aorta is unremarkable. Ascending aorta measures 2.8 cm, normal. Main pulmonary artery measures 3.1 cm, borderline dilated. UPPER ABDOMEN: Included portions of the liver unremarkable. There is borderline splenomegaly with span 14.4 cm. Included portions of the pancreas, adrenals and kidneys show no focal pathology. BONES: No acute or suspicious bony lesions. SOFT TISSUES: Superficial surrounding soft tissue unremarkable. IMPRESSION: 1. There are extensive bilateral airspace opacities, including groundglass opacities, tree-in-bud opacities, nodular opacities and areas of consolidation which are most prominent in the lingula and medial right lower lobe. Findings are most suggestive of severe multifocal pneumonia, possibly atypical viral pneumonia or opportunistic infection. Nodularity and masslike consolidation surrounding the right hilum raises the question of underlying malignancy. 2. There is prominent bilateral axillary lymphadenopathy. There are mildly prominent nodes in both maria teresa. There is trace right pleural effusion. Staff: Carmen Signed by: Dr. Mane Morales M.D. on 11/27/2019 9:01 PM
[2019-11-27 21:06] LABS: ANISOCYTOSIS SLIGHT; HYPOCHROMASIA SLIGHT; LYMPHOCYTES % (MANUAL) 26 % (19-48); MONOCYTES % (MANUAL) 3 % (3.4-9.0); NEUTROPHILS % (MANUAL) 71 % (40-74); PLATELET ESTIMATE ADEQUATE; PLATELET MORPHOLOGY COMMENT NORMAL; RBC MORPHOLOGY COMMENT NORMAL
[2019-11-27] MEDS ORDERED: SODIUM CHLORIDE 0.9% 50ML 50 ML ONE (23:26)
[2019-11-27] MEDS ORDERED: IOPAMIDOL 370 MG/ML 200 ML INFUS..BTL INJ ONE (23:26)
[2019-11-27] MEDS ORDERED: AZITHROMYCIN 500MG/NS 250 ML 250 ML ONE (23:52)
[2019-11-28] VITALS (9 sets, daily range): BP systolic 124–148; BP diastolic 72–89
[2019-11-28] MEDS ORDERED: ACETAMINOPHEN 325 MG TAB PO PRN (01:00)
[2019-11-28] MEDS: ALPRAZOLAM 0.5 MG TAB PO PRN ×2 (02:01→23:40)
[2019-11-28] MEDS: SODIUM CHLORIDE 0.9% 1000ML 1,000 ML IV SCH ×3 (02:58→16:09)
--- NOTE | 2019-11-28 04:25 | NUR ---
RECEIVED PT FROM ER BY STRETCHER, PT ABLE TO AMBULATE TO HOSPITAL BED. PT IS AAOX3, RR EVEN AND NON-LABORED, O2 BY NC AT 3L. NO S/SX OF DISTRESS NOTED. ORIENTED PT TO HOSPITAL ROOM, CALL LIGHT, BED CONTROLS AND LIGHTS, DISCUSSED CO-VID DROPLET ISOLATION, PT VERBALIZED UNDERSTANDING. LEFT PT LAYING SEMI FOWLERS IN BED, BED IN LOW LOCKED POSITION, SIDE RAILS UP X2, CALL LIGHT AND PHONE WITHIN REACH.
--- NOTE | 2019-11-28 05:17 | NUR ---
H&P PRIMARY CARE PHYSICIAN: Stephen Crocker MD, PhD. CHIEF COMPLAINT: sob/cough HISTORY OF PRESENT ILLNESS: This is a 29-year-old woman who developed sob/cough for 1 week. Pt states that her family had flu recently. Pt also had chills but no fever/sweats. No QUIROZ/sore throat. No recent travel. PAST MEDICAL HISTORY: Intermittent headaches, epistaxis, severe anemia s/p transfusion, Obesity, Left ovarian torsion, Pelvic LAD, Leukopenia, Anemia PAST SURGICAL HISTORY: . ALLERGIES: PER ELECTRONIC MEDICAL RECORD. FAMILY/SOCIAL HISTORY: The patient is . She has 2 children. No alcohol, illicits or cigarettes. MEDICATIONS: Per electronic medical record. REVIEW OF SYSTEMS: Denies any dizziness, chest pain, fever, chills, sweats, nausea, vomiting, diarrhea, headache. PHYSICAL EXAMINATION VITAL SIGNS: Have been reviewed. GENERAL: A tired-appearing woman resting in bed. HEENT: Anicteric. CARDIOVASCULAR: Normal S1 and S2. LUNGS: Reduced BS ABDOMEN: mildly tender left pelvic region EXTREMITIES: No edema or calf tenderness. NEUROLOGICAL: Alert and oriented times 3. She moves all extremities. SKIN: Dry. PSYCHIATRIC: Normal affect. LABS: Reviewed. MEDICATIONS: Reviewed. ASSESSMENT: 29yoF Multifocal PNA- ceftriaxone/azithromycin; f/u Coronavirus testing; rapid flu Ground glass opacities- suggest viral or atypical infection Nodular/masslike consolidation at right hilum- reimaging before d/c Sepsis due to PNA- IV abx B/L axillary LAD (Hx pelvic LAD)- RIght pleural effusion- diurese Obesity- hba1c/lipids BMI 36- as above Prop: lovenox; pepcid dispo: f/u studies; Stephen Crocker MD, PhD.
[2019-11-28] MEDS ORDERED: AZITHROMYCIN 500MG/NS 250 ML 250 ML IV SCH (05:30)
[2019-11-28] MEDS ORDERED: CEFTRIAXONE SOD 1 GM/NS 50 ML 50 ML IV SCH (05:30)
--- NOTE | 2019-11-28 07:00 | NUR ---
RECEIVED PATIENT RESTING IN BED NO S/S OF DISTRESS. BED LOW, WHEELS LOCKED, SIDE RAILS X2. CALL LIGHT IN REACH WILL CONTINUE TO MONITOR PATIENT.
[2019-11-28 07:20] LABS: ANION GAP 9.2 mmol/L (8-16); BLOOD UREA NITROGEN 10 mg/dL (7-26); BUN/CREATININE RATIO 12 (6-25); CALCIUM 8.2 mg/dL (8.4-10.2); CARBON DIOXIDE 24 mmol/L (22-29); CHLORIDE 104 mmol/L (98-107); CHOL/HDL RATIO 4.9 (3.0-3.6); CHOLESTEROL 78 MD/DL (0-199); CREATININE, SERUM 0.83 mg/dL (0.57-1.11); EST GLOMERULAR FILTRATION RATE > 60 ML/MIN (60-); GLUCOSE 94 mg/dL (74-118); HDL CHOLESTEROL 16 MG/DL (40-60); LDL CHOLESTEROL 44 MG/DL (60-130); POTASSIUM 4.2 mmol/L (3.5-5.1); SODIUM 133 mmol/L (136-145); TRIGLYCERIDES 90 MG/DL (0-149)
[2019-11-28 07:50] LABS: BASOPHILS % 0.3 % (0.0-1.0); HEMATOCRIT 30.9 % (34.2-44.1); LYMPHOCYTES # (AUTO) 1.7 (1.0-3.2); LYMPHOCYTES % 45.3 % (18.0-39.1); MEAN CORPUSCULAR HEMOGLOBIN 29.7 pg (28-32); MEAN CORPUSCULAR HGB CONC 32.4 g/dL (31-35); MEAN CORPUSCULAR VOLUME 91.7 fL (81-99); MONOCYTES # (AUTO) 0.2 (0.2-0.8); MONOCYTES % 4.3 % (4.4-11.3); NEUTROPHILS # (AUTO) 1.9 (2.1-6.9); NEUTROPHILS % 49.8 % (38.7-80.0); PLATELET COUNT 208 x10e3/uL (140-360); RED BLOOD COUNT 3.37 x10e6/uL (3.6-5.1); RED CELL DISTRIBUTION WIDTH 14.1 % (11.7-14.4)
[2019-11-28 08:16] LABS: ALANINE AMINOTRANSFERASE 36 IU/L (0-55); ALBUMIN/GLOBULIN RATIO 0.5 (0.8-2.0); ALKALINE PHOSPHATASE 18 IU/L (40-150)
[2019-11-28] MEDS: NIFEDIPINE CR 30 MG TAB PO SCH ×2 (09:30→20:23)
[2019-11-28] MEDS: FERROUS SULFATE 325 MG TAB PO SCH ×2 (09:30→16:09)
[2019-11-28] MEDS: FAMOTIDINE 20 MG TAB PO SCH ×2 (09:30→16:09)
--- NOTE | 2019-11-28 11:30 | NUR ---
SPOKE WITH DR. LOVE LAB RESULTS GIVEN. PATIENT NEGATIVE FOR CORONAVIRUS. DR. LOVE SAID OK TO MOVE PATIENT TO ANOTHER FLOOR IF NEEDED.
--- NOTE | 2019-11-28 13:15 | NUR ---
DPA DONE VIA PHONE AND THROUGH RECORDS DUE TO ISOLATION.
--- NOTE | 2019-11-28 15:58 | NUR ---
PATIENT NEGATIVE FOR CORONAVIRUS ON RESPIRATORY PANEL. CORONAVIRUS PCR IS STILL PENDING.
[2019-11-28 17:15] LABS: HIV 1&2 AB SCREEN NON-REACTIVE (NONREACTIVE)
--- NOTE | 2019-11-28 18:33 | Consultation ---
DATE OF CONSULTATION: 11/28/2019 REASON FOR CONSULTATION: To evaluate and assist in managing the patient with fevers and respiratory symptoms. SOURCE OF HISTORY: Information is gathered from the current medical record. I interviewed the patient at the bedside. HISTORY OF PRESENT ILLNESS: She is a 29-year-old woman, who was admitted to the hospital on November 28, 2019, after presenting with complaints of cough and chest tightness. She had been ill for about a week. The patient reports that she did not know that she had fevers until she got to the hospital. She reports that her 6-year-old daughter has been recovering from flu symptoms and is doing well. Her is not ill. She has had no sore throat. No nausea, vomiting, or diarrhea. At presentation, she had a temperature of 100.7 degrees Fahrenheit, later spike into 102.3 degrees Fahrenheit. Her CBC showed on November 27, 2019, a white count of 4.1, a hemoglobin of 9.7, and platelet count 210. Differentials on the white count appear unremarkable. Her serum creatinine was 0.8. Her AST mildly elevated to 53. ALT was normal. Alkaline phosphatase was normal. Serum total protein was found to be 9.2 and albumin 3.0. Test for influenza is reported negative. Group A strep screen is reported negative. Influenza A and B antigen test is reported negative. Influenza A and B, PCR reports are pending. Rhinovirus, RSV, and coronavirus serologies are pending. She had a chest x-ray and a CT of her chest is reported with extensive bilateral airspace opacities including ground glass opacities, tree in bud opacities, and nodular opacities with areas of consolidation, most prominent in the lingula and medial right lower lobe. Findings are suggestive of a severe multifocal pneumonia, possibly atypical viral pneumonia or opportunistic infection. There is prominent bilateral axillary adenopathy with previous right pleural effusion. The patient has been started on treatment with ceftriaxone and azithromycin. She tells me that she is feeling better since presentation to the hospital. She has no history of chronic lung disease, diabetes mellitus, chronic liver or kidney disease. PAST MEDICAL HISTORY: As reported above. She had removal of an ovary due to torsion. She has had two C-sections. SOCIAL HISTORY: She denies smoking. She drinks occasionally. She denies other forms of recreational drug use. FAMILY HISTORY: Positive for hypertension. ALLERGIES: SHE REPORTS ALLERGIC TO LEVOFLOXACIN, WHICH CAUSES HIVES AND DIFFICULTY RESPIRATION. MEDICATIONS: As reported earlier, she is on treatment with ceftriaxone and azithromycin. The rest of her medications are per the medication administration report. REVIEW OF SYSTEMS: The patient is alert. Her sensorium is clear. She appears ill, but nontoxic and is in no acute distress. She is in fairly cheerful mood. She coughs intermittently. No obvious dyspnea at rest. No sore throat. No chest or abdominal pain. No frequency or dysuria. No hematuria. No pruritus or rash. PHYSICAL EXAMINATION: GENERAL: She is an adult woman. She is alert, responsive. She appears nontoxic and is in no acute distress. VITAL SIGNS: In the past 24 hours, she had temperatures up to 102.3 degrees Fahrenheit. Her most recent temperature is 98.3. She is hemodynamically stable. HEENT: She has no gross pallor. No obvious icterus. No oropharyngeal lesions. NECK: Supple. CHEST: Symmetric. Breath sounds are coarse in the lung pressley. HEART: Sounds are regular without a significant murmur. ABDOMEN: Full, soft, and nontender. Bowel sounds are normal. EXTREMITIES: There is no acute erythema of her extremities. LABORATORY DATA: Her white count currently 3.7, hemoglobin 10.0, platelet count 208. Differentials on her white count show 49% neutrophils, 45% lymphocytes, about 3% monocytes. Also, creatinine is 0.8. Liver function tests are normal except for AST of 53. Serum total protein up to 9.2 and albumin 3.0. Blood cultures collected on November 26 are being processed and throat culture is also being processed. Serology reports are pending. CT scan of the chest report has been documented. IMPRESSION: This 29-year-old woman is presenting with signs and symptoms of sepsis associated with bilateral multifocal pneumonia, probably atypical in the current epidemiologic environment, COVID-19 infection needs to be ruled out. The patient also has hyperproteinemia, human immunodeficiency virus infection and associated opportunistic infection should be ruled out. Typical bacterial infection should also be ruled out. I suggest we continue treatment with ceftriaxone and azithromycin. We should get an HIV serology. Follow up on the respiratory pathogen panel that has been sent. Follow up on her other cultures. Maintain the patient in droplet and contact isolation. I have discussed the findings and plans with the patient at the bedside. I have discussed about the patient with the nursing staff. I will discuss about the patient with Dr. Crocker, whom I thank for the consult and opportunity to participate in the patient's care. MD JAELYN Hagen/ZACH /[id number]
[2019-11-28] MEDS: CEFTRIAXONE SOD 1 GM/NS 50 ML 50 ML IV SCH (20:23)
[2019-11-28] MEDS: AZITHROMYCIN 500MG/NS 250 ML 250 ML IV SCH (22:24)
[2019-11-29] VITALS (8 sets, daily range): BP systolic 117–151; BP diastolic 64–82
[2019-11-29] MEDS: SODIUM CHLORIDE 0.9% 1000ML 1,000 ML IV SCH ×3 (01:11→21:01)
--- NOTE | 2019-11-29 07:00 | NUR ---
RECEIVED PATIENT RESTING IN BED NO S/S OF DISTRESS. BED LOW, WHEELS LOCKED, SIDE RAILS X2. CALL LIGHT IN REACH WILL CONTINUE TO MONITOR PATIENT.
[2019-11-29] MEDS: FAMOTIDINE 20 MG TAB PO SCH ×2 (08:57→16:35)
[2019-11-29] MEDS: NIFEDIPINE CR 30 MG TAB PO SCH ×2 (08:57→21:01)
[2019-11-29] MEDS: FERROUS SULFATE 325 MG TAB PO SCH ×2 (08:57→16:35)
[2019-11-29] MEDS: LABETALOL HCL 100 MG TAB PO SCH ×2 (08:58→21:02)
--- NOTE | 2019-11-29 13:16 | Progress Note ---
DATE: 11/29/2019 SUBJECTIVE: The patient is alert and responsive. She states she is not coughing as much as before. No chest pain or tightness. No nausea, vomiting, or diarrhea. No genitourinary complaints. No adverse medication reaction reported. OBJECTIVE: VITAL SIGNS: In the past 24 hours, her maximum temperature 99.7 degrees Fahrenheit and most recent temperature 98.7. She is hemodynamically stable. HEENT: She has no gross pallor. No obvious icterus. No oropharyngeal lesions. NECK: Supple. CHEST: Symmetric. Breath sounds are coarse in the lung pressley. HEART: Sounds are regular. There is no new murmur. ABDOMEN: Soft. Bowel sounds are present. EXTREMITIES: There is no acute erythema of lower extremities. LABORATORY DATA: On November 27, her white count 3.7, hemoglobin 10.0, and platelet count 208. Serum creatinine 0.8. Serum total protein 9.2. HIV test on November 27 is nonreactive. Coronavirus PCR report is pending. Influenza A and B antigen test are negative. There are no significant positive culture reports. There are no new imaging reports. IMPRESSION: She is on treatment for pneumonia. There is concern for COVID-19 infection, testing report is pending. Her human immunodeficiency virus serology is negative. She has hyperproteinemia and lymphadenopathy seen on CT imaging, the etiology is unclear. Differential diagnosis includes lymphoma, tuberculosis, or other atypical infection. The patient again is human immunodeficiency virus negative. I suggest we continue current treatment. We will order a QuantiFERON test. If the keane serology is negative, consider lymph node biopsy. I have discussed about the patient with Dr. Crocker. I have discussed about the patient with staff on the unit. Armando Vann MD ATF/MODL /[id number]
[2019-11-29] MEDS: CEFTRIAXONE SOD 1 GM/NS 50 ML 50 ML IV SCH (21:01)
[2019-11-29] MEDS: AZITHROMYCIN 500MG/NS 250 ML 250 ML IV SCH (23:59)
[2019-11-30] VITALS (8 sets, daily range): BP systolic 115–139; BP diastolic 60–92
[2019-11-30] MEDS: SODIUM CHLORIDE 0.9% 1000ML 1,000 ML IV SCH ×3 (02:58→12:00)
[2019-11-30 06:08] LABS: HEMATOCRIT 34.2 % (34.2-44.1); HEMOGLOBIN 10.7 g/dL (12.0-16.0); MEAN CORPUSCULAR HEMOGLOBIN 28.8 pg (28-32); MEAN CORPUSCULAR HGB CONC 31.3 g/dL (31-35); MEAN CORPUSCULAR VOLUME 92.2 fL (81-99); PLATELET COUNT 250 x10e3/uL (140-360); RED BLOOD COUNT 3.71 x10e6/uL (3.6-5.1); RED CELL DISTRIBUTION WIDTH 13.8 % (11.7-14.4)
--- NOTE | 2019-11-30 06:43 | NUR ---
IM- progress note O/N see below REVIEW OF SYSTEMS: Denies any dizziness, chest pain, fever, chills, sweats, nausea, vomiting, diarrhea, headache. PHYSICAL EXAMINATION VITAL SIGNS: Have been reviewed. GENERAL: A tired-appearing woman resting in bed. HEENT: Anicteric. CARDIOVASCULAR: Normal S1 and S2. LUNGS: Reduced BS ABDOMEN: mildly tender left pelvic region EXTREMITIES: No edema or calf tenderness. NEUROLOGICAL: Alert and oriented times 3. She moves all extremities. SKIN: Dry. PSYCHIATRIC: Normal affect. LABS: Reviewed. MEDICATIONS: Reviewed. 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 cont care. 11-29 f/u labs Stephen Crocker MD, PhD.
[2019-11-30 08:02] LABS: EOSINOPHILS % (MANUAL) 1 % (0-7); LYMPHOCYTES % (MANUAL) 35 % (19-48); MONOCYTES % (MANUAL) 5 % (3.4-9.0); NEUTROPHILS % (MANUAL) 59 % (40-74)
[2019-11-30] MEDS: FERROUS SULFATE 325 MG TAB PO SCH ×2 (09:07→17:27)
[2019-11-30] MEDS: FAMOTIDINE 20 MG TAB PO SCH ×2 (09:07→17:27)
[2019-11-30] MEDS: NIFEDIPINE CR 30 MG TAB PO SCH ×2 (09:08→20:02)
[2019-11-30] MEDS: LABETALOL HCL 100 MG TAB PO SCH ×2 (09:09→20:01)
[2019-11-30 09:30] LABS: ERYTHROCYTE SEDIMENTATION RATE 87 mm/hr (0-20)
--- NOTE | 2019-11-30 19:00 | NUR ---
Report completed with off going nurse. Received patient resting in bed with no s/s of distress noted. Bed low, locked, side rails up x2, Call light within reach and instructed to use call light if need assistance or call nurse extension. Nurse extension written on board. Will continue to monitor closely.
[2019-11-30] MEDS: CEFTRIAXONE SOD 1 GM/NS 50 ML 50 ML IV SCH (20:01)
[2019-12-01] VITALS (8 sets, daily range): BP systolic 108–130; BP diastolic 62–76
[2019-12-01] MEDS: AZITHROMYCIN 500MG/NS 250 ML 250 ML IV SCH (00:09)
[2019-12-01] MEDS: SODIUM CHLORIDE 0.9% 1000ML 1,000 ML IV SCH ×3 (00:09→18:58)
--- NOTE | 2019-12-01 05:54 | NUR ---
IM- progress note O/N see below REVIEW OF SYSTEMS: Denies any dizziness, chest pain, fever, chills, sweats, nausea, vomiting, diarrhea, headache. PHYSICAL EXAMINATION VITAL SIGNS: Have been reviewed. GENERAL: A tired-appearing woman resting in bed. HEENT: Anicteric. CARDIOVASCULAR: Normal S1 and S2. LUNGS: Reduced BS ABDOMEN: mildly tender left pelvic region EXTREMITIES: No edema or calf tenderness. NEUROLOGICAL: Alert and oriented times 3. She moves all extremities. SKIN: Dry. PSYCHIATRIC: Normal affect. LABS: Reviewed. MEDICATIONS: Reviewed. 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 cont care. 11-29 f/u labs 3- covid19 Negative; quantiferon pending; RAD for Bx Axillary LN. Stephen Crocker MD, PhD.
[2019-12-01] MEDS: FAMOTIDINE 20 MG TAB PO SCH ×2 (08:50→16:26)
[2019-12-01] MEDS: FERROUS SULFATE 325 MG TAB PO SCH ×2 (08:50→16:26)
[2019-12-01] MEDS: NIFEDIPINE CR 30 MG TAB PO SCH ×2 (08:51→20:46)
[2019-12-01] MEDS: LABETALOL HCL 100 MG TAB PO SCH ×2 (08:51→20:47)
[2019-12-01 11:09] LABS: ALPHA 2 GLOBULIN URINE PEP 8.5 % (.)
--- NOTE | 2019-12-01 14:49 | Progress Note ---
DATE: 11/30/2019 SUBJECTIVE: The patient is alert and responsive. She is still coughing. No dyspnea. No nausea, vomiting, or diarrhea. No body aches. No sore throat. No other systemic complaints reported. OBJECTIVE: VITAL SIGNS: In the previous 24 hours, she had temperatures to 99.8 degrees Fahrenheit. She is hemodynamically stable. HEENT: She has no pallor. No icterus. No oropharyngeal lesions. NECK: Supple. CHEST: Symmetric. Breath sounds are less coarse in the lung pressley. HEART: Sounds are regular. There is no new murmur. ABDOMEN: Soft. Bowel sounds are normal. EXTREMITIES: There is no acute erythema of the extremities. LABORATORY DATA: Her white count on November 28, 2019, is 3.7, hemoglobin 10.0, platelet count 208. Serum creatinine 0.8. There are no significant positive cultures. IMPRESSION: She is on treatment for pneumonia. There is concern for pandemic coronavirus infection. Test report is pending. Cough and fevers are resolving. She has hyperproteinemia with negative HIV test. The etiology is unclear. She also has lymphadenopathy on imaging. The etiology is unclear. I suggest continue current management. Follow up on her serologies. Monitor temperature, CBC, renal function. Maintain appropriate isolation. MD JAELYN Hagen/MODL /[id number]
--- NOTE | 2019-12-01 15:19 | Progress Note ---
DATE: 12/01/2019 SUBJECTIVE: The patient is alert and responsive. She wants to go home. She is still coughing intermittently. No dyspnea. No chest pain. No body aches. No sore throat. No nausea, vomiting, or diarrhea. No other systemic complaints reported. OBJECTIVE: VITAL SIGNS: In the past 24 hours, she had temperatures up to 98.9-99.6 degrees Fahrenheit. GENERAL: She is hemodynamically stable. HEENT: She has no pallor. There is no icterus. No oropharyngeal lesions. NECK: Supple. CHEST: Symmetric. Breath sounds are less coarse in the lung pressley. CARDIOVASCULAR: Heart sounds are regular. There is no new murmur. ABDOMEN: Soft. Bowel sounds are normal. There is no acute erythema of lower extremities. LABORATORY DATA: Her white count on November 29 is 4.8, hemoglobin 10.7, platelet count 250. Serum creatinine on november 27 is 0.8. There are no significant positive cultures. Her HIV test is negative from November 27. Influenza A and B antigen tests are negative. Test for pandemic coronavirus report is not available. IMPRESSION: She is on treatment for pneumonia. Her temperatures are significantly down. She has no leukocytosis. She has hyperproteinemia. Her HIV serology is negative. Serology for influenza a and B antigen are negative. PCR for influenza A and B are also negative. She is fairly stable from Infectious Disease point, clinically improving. I suggest continue current management. We are awaiting her influenza test report. If the test is negative and the patient is otherwise stable, she can be discharged. Continue current treatment. We are awaiting her pandemic coronavirus test report, maintain in appropriate isolation. MD JAELYN Hagen/ZACH /[id number]
[2019-12-01] MEDS ORDERED: AZITHROMYCIN 250 MG TAB PO SCH ×2 (20:00)
[2019-12-01] MEDS: CEFTRIAXONE SOD 1 GM/NS 50 ML 50 ML IV SCH (20:46)
[2019-12-02 00:03] VITALS: BP 132/70
[2019-12-02] MEDS: SODIUM CHLORIDE 0.9% 1000ML 1,000 ML IV SCH ×2 (03:00→10:26)
[2019-12-02 04:14] VITALS: BP 112/67
--- NOTE | 2019-12-02 06:02 | NUR ---
D/c summary Principal Dx: Multifocal PNA- ceftriaxone/azithromycin; f/u Coronavirus testing; rapid flu; covid19 NEGATIVE Ground glass opacities- suggest viral or atypical infection Nodular/masslike consolidation at right hilum- reimaging before d/c Sepsis due to PNA- IV abx B/L axillary LAD (Hx pelvic LAD)- bx of axillary LAD outpt. 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 cont care. 3 f/u labs 11-30 covid19 Negative; quantiferon pending; RAD for Bx Axillary LN. 3 T-spot pending; Electrophoresis/immunofixation pending; Axillary LN Bx pending; if not done today, will set up outpt and d/c if cleared by ID; d/c home f/u Claribel 2-4 days stable d/c>35mins Stephen Crocker MD, PhD.
--- NOTE | 2019-12-02 07:17 | NUR ---
ASSUMED CARE. PATIENT RESTING IN BED. AWAKE ALERT ORIENTED. NO DISTRESS NOTED. NS INFUSING AT 125ML/HR. INSTRUCTED TO USE CALL LIGHT FOR ASSISTANCE. VERBALIZED UNDERSTANDING.
[2019-12-02 08:00] VITALS: BP 117/72
[2019-12-02 08:11] VITALS: BP 117/72
[2019-12-02] MEDS: FERROUS SULFATE 325 MG TAB PO SCH ×2 (08:31→17:10)
[2019-12-02] MEDS: FAMOTIDINE 20 MG TAB PO SCH ×2 (08:31→17:10)
[2019-12-02] MEDS: NIFEDIPINE CR 30 MG TAB PO SCH (08:31)
[2019-12-02] MEDS: LABETALOL HCL 100 MG TAB PO SCH (08:32)
[2019-12-02 12:33] VITALS: BP 118/82
[2019-12-02 17:10] VITALS: BP 126/76
[2019-12-02] MEDS ORDERED: CEFDINIR250 MG/5 M PO (17:26)
[2019-12-02] MEDS ORDERED: AZITHROMYCIN250 MG PO (17:33)
--- NOTE | 2019-12-02 18:57 | Progress Note ---
DATE: 12/02/2019 SUBJECTIVE: The patient is alert and responsive. She is not coughing much now. No dyspnea at rest. No vomiting or diarrhea. No adverse medication reaction reported. OBJECTIVE: VITAL SIGNS: In the past 24 hours her maximum temperature was up to 98.6 degrees Fahrenheit. She is hemodynamically stable. HEENT: She has no pallor. There is no icterus. No oropharyngeal lesions. NECK: Supple. CHEST: Symmetric. LUNGS: Sound less coarse. HEART: Sounds are regular. There is no new murmur. ABDOMEN: Soft. Bowel sounds are present. EXTREMITIES: There is no acute erythema of her extremities. LABORATORY DATA: Her white count on November 30, 2019, 4.8, hemoglobin 10.7, platelet count 250. Serum creatinine is 0.8. There are no new positive culture reports. Her coronavirus PCR test is reported as negative. IMPRESSION: She is afebrile and stable. She has no leukocytosis. She has been on treatment for pneumonia. Coronavirus PCR test is reported negative. I suggest the patient can be discharged on cefdinir and azithromycin to complete a total of 14 days of antibiotic treatment. Continue order supportive care. MD JAELYN Hagen/ZACH /[id number]
[2019-12-02] MEDS ORDERED: AZITHROMYCIN 500MG/NS 250 ML 250 ML IV SCH (21:00)
== END 2019-12-02 19:20 | disposition home or self-care (01) | DRG 871 ==
LOC: ER 17:02 → ERHOLD 19:00 → IMCU 11-28 04:29 → OBSVTOIN 11-28 07:55
PROVIDERS: ADMIT Internal Medicine; ATTEND Internal Medicine
DX: A41.9 Sepsis, unspecified organism (principal); J18.9 Pneumonia, unspecified organism; Z68.41 Body mass index [BMI] 40.0-44.9, adult; E66.9 Obesity, unspecified; E88.09 Other disorders of plasma-protein metabolism, not elsewhere classified; R59.0 Localized enlarged lymph nodes
CPT/HCPCS: 36415; 71260; 74470; 80053; 80061; 83036; 83518; 83605; 83735; 83880; 84165; 84166; 84484; 84702; 85007; 85025; 85027; 85651; 86039; 86225; 86335; 86431; 87040; 87070; 87390; 87400; 87536; 87633; 87635; 93005; 96361; 99284; G0378; G0433; G0435; J0456; J0696; J7030; Q9967

== ENCOUNTER 2020-02-25 09:11 | Emergency (ER) | payer BC ==
[~2020-02-25] VITALS: Ht 170.2 cm; Wt 121.6 kg
[~2020-02-25 09:11] MED LIST changes: +AZITHROMYCIN250 MG PO; +CEFDINIR250 MG/5 M PO
--- NOTE | 2020-02-25 09:19 | NUR ---
CLIENT REPORTS HER LAST HCG AT 171 DURING AN ER VISIT ON SATURDAY.
[2020-02-25 10:00] LABS: BASOPHILS % 0.3 % (0.0-1.0); HEMATOCRIT 34.4 % (34.2-44.1); HEMOGLOBIN 10.8 g/dL (12.0-16.0); LYMPHOCYTES % 25.4 % (18.0-39.1); MEAN CORPUSCULAR HEMOGLOBIN 27.3 pg (28-32); MEAN CORPUSCULAR HGB CONC 31.4 g/dL (31-35); MEAN CORPUSCULAR VOLUME 86.9 fL (81-99); MONOCYTES # (AUTO) 0.4 (0.2-0.8); MONOCYTES % 5.6 % (4.4-11.3); NEUTROPHILS # (AUTO) 5.3 (2.1-6.9); NEUTROPHILS % 68.4 % (38.7-80.0); PLATELET COUNT 213 x10e3/uL (140-360); RED BLOOD COUNT 3.96 x10e6/uL (3.6-5.1); RED CELL DISTRIBUTION WIDTH 14.6 % (11.7-14.4)
[2020-02-25 10:17] LABS: ALANINE AMINOTRANSFERASE 17 IU/L (0-55); ALBUMIN 3.7 g/dL (3.5-5.0); ALBUMIN/GLOBULIN RATIO 0.6 (0.8-2.0); ALKALINE PHOSPHATASE 26 IU/L (40-150); ANION GAP 14.5 mmol/L (8-16); BLOOD UREA NITROGEN 12 mg/dL (7-26); BUN/CREATININE RATIO 11 (6-25); CALCIUM 9.2 mg/dL (8.4-10.2); CARBON DIOXIDE 22 mmol/L (22-29); CHLORIDE 102 mmol/L (98-107); CREATININE, SERUM 1.08 mg/dL (0.57-1.11); EST GLOMERULAR FILTRATION RATE > 60 ML/MIN (60-); GLUCOSE 133 mg/dL (74-118); POTASSIUM 3.5 mmol/L (3.5-5.1); SODIUM 135 mmol/L (136-145)
[2020-02-25] MEDS ORDERED: SODIUM CHLORIDE 0.9% 1000ML 1,000 ML IV STA (10:23)
--- NOTE | 2020-02-25 10:36 | Emergency Department Note ---
History of Present Illnes History of Present Illness Chief Complaint: General Medicine Complaints History of Present Illness This is a 29 year old female arrives to the ED for vaginal spotting. Patient states she had her last cycle January 15, went to the emergency department on Saturday for pain and was told her beta Quant was 171. Patient arrived to the ER today because of vaginal bleeding/spotting that happened this morning. Patient denies any pain today. She is . Historian: Patient Arrival Mode: Car Onset quality: sudden Duration (how long): day(s) Timing of current episode: intermittent Past Medical/Family History Physician Review I have reviewed the patient's past medical and family history. Any updates have been documented here. Past Medical History Recent Fever: No Clinical Suspicion of Infectio: No New/Unexplained Change in Ment: No Past Medical History: Hypertension Past Surgical History: Other Surgery: (L) ovary removed Social History Smoking Cessation: Former smoker Counseling Performed: No Alcohol Use: None Any Illegal Drug Use: No TB Exposure/Symptoms: No Physically hurt or threatened: No Other Last Tetanus: UNKNOWN Last Flu: N Last Pneumovax: N Review of Systems Review of Systems Constitutional: Reports no symptoms EENTM: Reports no symptoms Cardiovascular: Reports no symptoms Respiratory: Reports no symptoms Gastrointestinal: Reports no symptoms Genitourinary: Reports as per HPI Musculoskeletal: Reports no symptoms Integumentary: Reports no symptoms Neurological: Reports no symptoms Psychological: Reports no symptoms Endocrine: Reports no symptoms Hematological/Lymphatic: Reports no symptoms Physical Exam Related Data Allergies: Coded Allergies: levofloxacin (Verified Allergy, Severe, THROAT SWELLS, 04/28/18) Triage Vital Signs Vital Signs Date Time Temp Pulse Resp B/P (MAP) Pulse Ox O2 Delivery O2 Flow Rate FiO2 02/25/20 09:14 99.0 16 13 160/97 98 Vital signs reviewed: Yes Physical Exam CONSTITUTIONAL Constitutional: Present well-developed, Present well-nourished, Present obese HENT HENT: Present normocephalic, Present atraumatic, Present oropharynx clear/moist, Present nose normal HENT L/R: Present left ext ear normal, Present right ext ear normal EYES Eyes: Reports PERRL, Reports conjunctivae normal NECK Neck: Present ROM normal PULMONARY Pulmonary: Present effort normal, Present breath sounds normal CARDIOVASCULAR Cardiovascular: Present regular rhythm, Present heart sounds normal, Present capillary refill normal, Present normal rate GASTROINTESTINAL Abdominal: Present soft, Present nontender, Present bowel sounds normal GENITOURINARY Genitourinary: Present exam deferred SKIN Skin: Present warm, Present dry MUSCULOSKELETAL Musculoskeletal: Present ROM normal NEUROLOGICAL Neurological: Present alert, Present oriented x 3, Present no gross motor or sensory deficits PSYCHOLOGICAL Psychological: Present mood/affect normal, Present judgement normal Results Laboratory Result Diagram: 02/25/20 0920 Laboratory Laboratory Tests Test 02/25/20 09:20 White Blood Count 7.68 x10e3/uL (4.8-10.8) Red Blood Count 3.96 x10e6/uL (3.6-5.1) Hemoglobin 10.8 g/dL (12.0-16.0) Hematocrit 34.4 % (34.2-44.1) Mean Corpuscular Volume 86.9 fL (81-99) Mean Corpuscular Hemoglobin 27.3 pg (28-32) Mean Corpuscular Hemoglobin Concent 31.4 g/dL (31-35) Red Cell Distribution Width 14.6 % (11.7-14.4) Platelet Count 213 x10e3/uL (140-360) Neutrophils (%) (Auto) 68.4 % (38.7-80.0) Lymphocytes (%) (Auto) 25.4 % (18.0-39.1) Monocytes (%) (Auto) 5.6 % (4.4-11.3) Eosinophils (%) (Auto) 0.0 % (0.0-6.0) Basophils (%) (Auto) 0.3 % (0.0-1.0) Neutrophils # (Auto) 5.3 (2.1-6.9) Lymphocytes # (Auto) 2.0 (1.0-3.2) Monocytes # (Auto) 0.4 (0.2-0.8) Eosinophils # (Auto) 0.0 (0.0-0.4) Basophils # (Auto) 0.0 (0.0-0.1) Absolute Immature Granulocyte (auto 0.02 x10e3/uL (0-0.1) Assessment & Plan Medical Decision Making MDM 29-year-old well-appearing female arrived to the ED with complaints of vaginal bleeding and . Patient's beta Quant level was only 24, down from 171 a week ago. Patient informed given her last menstrual cycle was January 15 this is likely a pseudopregnancy, or false implantation. Patient expressed understanding. Patient understands she may continue to spot/have intermittent bleeding while her beta returns to 0. No concerns of ectopic , or other life-threatening obstructive process at time of discharge. Assessment & Plan Final Impression: (1) Miscarriage Depart Disposition: HOME, SELF-CARE Last Vital Signs Date Time Temp Pulse Resp B/P (MAP) Pulse Ox O2 Delivery O2 Flow Rate FiO2 02/25/20 10:21 109 14 135/83 100 02/25/20 09:14 99.0 Home Meds Active Scripts Tramadol Hcl (ULTRAM) 50 Mg Tablet, 50 MG PO Q6HR PRN for ABDOMINAL PAIN, #12 TAB Prov:MARY MCKAY DO 02/25/20 Famotidine (PEPCID) 20 Mg Tablet, 20 MG PO BID, #60 TAB Prov:KISHORE LOVE MD 05/03/18 Ondansetron (ZOFRAN ODT) 4 Mg Tab.rapdis, 4 MG PO Q4-6H PRN, #40 Prov:KISHORE LOVE MD 05/03/18 Labetalol Hcl (LABETALOL HCL) 100 Mg Tablet, 200 MG PO Q12HR for 30 Days Prov:KISHORE LOVE MD 05/03/18 Ferrous Sulfate (FERROUS SULFATE) 325 Mg Tablet, 325 MG PO BIDWM for 30 Days Prov:KISHORE LOVE MD 05/03/18 Nifedipine (NIFEDIPINE ER) 30 Mg Tab.er.24, 60 MG PO Q12HR for 30 Days Prov:KISHORE LOVE MD 05/03/18 Reported Medications Azithromycin (Z-CYDNEY) 250 Mg Tablet, 250 MG PO UD for 7 Days, #1 UDPKT Z-Pack 12/02/19 Cefdinir (CEFDINIR) 250 Mg/5 Ml Susp.recon, 300 MG PO DAILY for 8 Days, #16 12/02/19 Acetaminophen With Codeine (TYLENOL WITH CODEINE #3 TABLET) 1 Each Tablet, 300 MG PO PRN, TAB 07/24/19 Medications in the ED Sodium Chloride 1,000 ml @ 0 mls/hr Q0M STAT IV ; Start 02/25/20 at 10:23; Stop 02/25/20 at 10:29; Status DC MARY MCKAY DO Feb 25, 2020 10:19
[2020-02-25] MEDS ORDERED: SODIUM CHLORIDE 0.9% 1000ML 1,000 ML ONE (10:37)
[2020-02-25] MEDS ORDERED: KETOROLAC TROMETHAMINE 30 MG/ML VIAL IV STA (12:44)
[2020-02-25] MEDS ORDERED: KETOROLAC TROMETHAMINE 30 MG/ML VIAL ONE (12:44)
[2020-02-25] MEDS ORDERED: ULTRAM50 MG PO (12:46)
== END 2020-02-25 13:00 | disposition home or self-care (01) ==
LOC: ER 09:11
DX: O03.9 Complete or unspecified spontaneous abortion without complication (principal); I10 Essential (primary) hypertension
CPT/HCPCS: 36415; 80053; 84702; 85025; 86850; 86900; 99001; 99283; J1885; J7030

== ENCOUNTER 2020-05-11 14:20 | Inpatient (IN) | payer BC, OTHER ==
[~2020-05-11] VITALS: Ht 167.6 cm; Wt 123.4 kg
[~2020-05-11 14:20] MED LIST changes: +ULTRAM50 MG PO
--- NOTE | 2020-05-11 15:13 | Emergency Department Note ---
History of Present Illnes History of Present Illness Chief Complaint: Eye, Ear, Nose, Throat, Dental History of Present Illness This is a 29 year old female Chief Complaint Comment PATIENT WAS IN DENTAL OFFICE GETTING A DEEP CLEANING. THEY COULD NOT GET HER BLEEDING TO STOP SO THEY SENT HER TO EMERGENCY ROOM. PATIENT C/O WEAKNESS. 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 Any updates have been documented here. Past Medical History Recent Fever: No Clinical Suspicion of Infectio: No New/Unexplained Change in Ment: No Past Medical History: Hypertension Past Surgical History: Other Surgery: (L) ovary removed Social History Physically hurt or threatened: No Other Last Tetanus: UNKNOWN Review of Systems Review of Systems Constitutional: Reports no symptoms EENTM: Reports as per HPI, Reports other (R upper molar bleeding) Cardiovascular: Reports no symptoms Respiratory: Reports no symptoms Gastrointestinal: Reports no symptoms Genitourinary: Reports no symptoms Musculoskeletal: Reports no symptoms Integumentary: Reports no symptoms Neurological: Reports no symptoms Psychological: Reports no symptoms Endocrine: Reports no symptoms Hematological/Lymphatic: Reports no symptoms Physical Exam Related Data Allergies: Coded Allergies: levofloxacin (Verified Allergy, Severe, THROAT SWELLS, 04/28/18) Triage Vital Signs Vital Signs Date Time Temp Pulse Resp B/P (MAP) Pulse Ox O2 Delivery O2 Flow Rate FiO2 05/11/20 14:42 98.5 90 18 119/69 99 Room Air Vital signs reviewed: Yes Physical Exam CONSTITUTIONAL Constitutional: Present well-developed, Present well-nourished HENT HENT: Present normocephalic, Present atraumatic, Present oropharynx clear/moist, Present nose normal; Absent oropharynx normal (Bleeding to R upper molar) HENT L/R: Present left ext ear normal, Present right ext ear normal EYES Eyes: Reports PERRL, Reports conjunctivae normal NECK Neck: Present ROM normal PULMONARY Pulmonary: Present effort normal, Present breath sounds normal CARDIOVASCULAR Cardiovascular: Present regular rhythm, Present heart sounds normal, Present capillary refill normal, Present normal rate GASTROINTESTINAL Abdominal: Present soft, Present nontender, Present bowel sounds normal GENITOURINARY Genitourinary: Present exam deferred SKIN Skin: Present warm, Present dry, Present other (Scattered petechiae) MUSCULOSKELETAL Musculoskeletal: Present ROM normal NEUROLOGICAL Neurological: Present alert, Present oriented x 3, Present no gross motor or sensory deficits PSYCHOLOGICAL Psychological: Present mood/affect normal, Present judgement normal Procedures 12 Lead ECG Interpretation ECG Interpretation : ECG: ECG 1 Stadium Manager: Interpreted by ED physician Date: May 11, 2020 Rhythm: sinus rhythm Rate: normal QRS axis: normal ST segments normal: Yes T waves normal: Yes Clinical Impression: non-specific ECG Assessment & Plan Medical Decision Making MDM 29 y.o F w/ dental rocedure today and continued bleeding. TXA to tooth slowed bleeding. W/u shows thrombocytopenia likely 2/2 ITP. Given steroids and Platelet transfusion and discussed with Dr. Black who has agreed to admit. Reassessment Reassessment time: 16:51 Reassessment Well appearing, NAD Assessment & Plan Final Impression: (1) Thrombocytopenia Depart Disposition: ADMITTED Last Vital Signs Date Time Temp Pulse Resp B/P (MAP) Pulse Ox O2 Delivery O2 Flow Rate FiO2 05/11/20 14:42 98.5 90 18 119/69 99 Room Air Home Meds Active Scripts Tramadol Hcl (ULTRAM) 50 Mg Tablet, 50 MG PO Q6HR PRN for ABDOMINAL PAIN, #12 TAB Prov:MARY MCKAY DO 02/25/20 Famotidine (PEPCID) 20 Mg Tablet, 20 MG PO BID, #60 TAB Prov:KISHORE LOVE MD 05/03/18 Ondansetron (ZOFRAN ODT) 4 Mg Tab.rapdis, 4 MG PO Q4-6H PRN, #40 Prov:KISHORE LOVE MD 05/03/18 Labetalol Hcl (LABETALOL HCL) 100 Mg Tablet, 200 MG PO Q12HR for 30 Days Prov:KISHORE LOVE MD 05/03/18 Ferrous Sulfate (FERROUS SULFATE) 325 Mg Tablet, 325 MG PO BIDWM for 30 Days Prov:KISHORE LOVE MD 05/03/18 Nifedipine (NIFEDIPINE ER) 30 Mg Tab.er.24, 60 MG PO Q12HR for 30 Days Prov:KISHORE LOVE MD 05/03/18 Reported Medications Azithromycin (Z-CYDNEY) 250 Mg Tablet, 250 MG PO UD for 7 Days, #1 UDPKT Z-Pack 12/02/19 Cefdinir (CEFDINIR) 250 Mg/5 Ml Susp.recon, 300 MG PO DAILY for 8 Days, #16 12/02/19 Acetaminophen With Codeine (TYLENOL WITH CODEINE #3 TABLET) 1 Each Tablet, 300 MG PO PRN, TAB 07/24/19 SONJA SIMMS MD May 11, 2020 15:13
[2020-05-11 15:32] LABS: BASOPHILS % 0.5 % (0.0-1.0); HEMATOCRIT 27.1 % (34.2-44.1); HEMOGLOBIN 8.5 g/dL (12.0-16.0); LYMPHOCYTES # (AUTO) 1.4 (1.0-3.2); LYMPHOCYTES % 32.5 % (18.0-39.1); MEAN CORPUSCULAR HEMOGLOBIN 27.2 pg (28-32); MEAN CORPUSCULAR HGB CONC 31.4 g/dL (31-35); MEAN CORPUSCULAR VOLUME 86.9 fL (81-99); MONOCYTES # (AUTO) 0.3 (0.2-0.8); MONOCYTES % 8.1 % (4.4-11.3); NEUTROPHILS # (AUTO) 2.5 (2.1-6.9); NEUTROPHILS % 58.7 % (38.7-80.0); RED BLOOD COUNT 3.12 x10e6/uL (3.6-5.1); RED CELL DISTRIBUTION WIDTH 14.6 % (11.7-14.4)
--- OUTSIDE RECORDS SUMMARY | 2020-05-11 15:38 | XMS REPORT | Continuity of Care Document ---
Author Author [facility] t Organization [facility] t Address [address] [place] [address] Phone Unavailable Care Team Providers Care Cigar Packer Name Role Phone KATE MACHADO, MD NOVAK PCP ERIC VAZQUEZ Attphys Unavailable Elvis RICH Attphys Unavailable MARY MCKAY Attphys Unavailable Mónica COBURN Attphys Unavailable ELIAS DOSS Admphys Unavailable Payers Payer Name Policy Type Policy Number Effective Date Expiration Date S [facility] [employer] [place] P[place] [id number] 2018 00:00:00 [facility] Problems Condition Name Condition Details Condition Category Status Onset Date Resolution Date Last Treatment Date Treating Clinician Comments Source Torsion of ovary Ovarian torsion Problem Active [facility] Spontaneous Problem Active [facility] Allergies, Adverse Reactions, Alerts Allergy Name Allergy Type Status Severity Reaction(s) Onset Date Inacti ve Date Treating Clinician Comments Source levofloxacin DA Active U 2019-12-11 00:00:00 [facility] Levofloxacin Allergy to substance Active Severe THROAT SWELLS 2018-04-28 00:00:00 [facility] levofloxacin DA Active MO 2018-01-04 00:00:00 [facility] Social History Social Habit Start Date Stop Date Quantity Comments Source Sex Assigned At 1990 00:00:00 1990 00[birth year]00:00 Female [facility] Medications Ordered Medication Name Filled Medication Name Start Date Stop Da te Current Medication? Ordering Clinician Indication Dosage Frequency Signature (SIG) Comments Components Source Tramadol Hcl (Ultram) 50 Mg TABLET Tramadol Hcl (Ultram) 50 Mg TABLET 2020-02-25 12:46:00 Yes 50 Every 6 Hours as needed for A bdominal Pain [facility] Famotidine (Pepcid) 20 Mg TABLET Famotidine (Pepcid) 20 Mg T ABLET 2018-05-03 06:43:00 Yes 20 Twice A Day [facility] Ferrous Sulfate Ferrous Sulfate 2018-05-03 06:43:00 Yes 325 Twice Daily With Meals [facility] Labetalol Hcl Labetalol Hcl 2018-05-03 06:43:00 Yes 20 0 Every 12 Hours [facility] Nifedipine (Nifedipine Er) 30 Mg TAB.ER.24 Nifedipine (Nifedipine Er) 30 Mg TAB.ER.24 2018-05-03 06:43:00 Yes 60 Every 12 Hours [facility] Ondansetron (Zofran Odt) 4 Mg TAB.[facility] Ondansetron ( Zofran Odt) 4 Mg TAB.RAPDIS 2018-05-03 06:43:00 Yes 4 Q4-6H Prn [facility] Acetaminophen With Codeine (Tylenol With Codeine #3 Ta blet) 1 Each TABLET Acetaminophen With Codeine (Tylenol With Codeine #3 Tablet) 1 Each TABLET Yes 300 As Needed [facility] Azithromycin (Z-Feroz) 250 Mg TABLET Azithromycin (Z-Feroz) 250 Mg TABLET Yes 250 Use As Directed [facility] Cefdinir Cefdinir Yes 300 Daily [facility] Vital Signs Vital Name Observation Time Observation Value Comments Source Weight 2020-02-25 09:14:00 268 [lb_av] [facility] BMI (Body Mass Index) 2020-02-25 09:14:00 42.0 kg/m2 [facility] Body Temperature 2019-12-02 17:10:00 98.4 [degF] [facility] Procedures Procedure Date / Time Performed Performing Clinician Jose marquez Computed tomography of chest with contrast 2019-11-27 00:00:00 ERIC ORTIZ [facility] X-ray of chest, single view 2019-11-24 00:00:00 PETRA RICH [facility] Complete non-obstetrical ultrasound of pelvis 2019-07-22 00: 00:00 UPPERGLADEJOSE MANUEL [facility] Computed tomography of abdomen and pelvis with contrast 2018 00:00:00 JOSE MANUEL COBURN [facility] US transvaginal 2019-07-22 00:00:00 UPPERGLADE CARO CENTERDAPHNIE Sales [facility] Limited Doppler ultrasound of vessels of pelvis 2019-07-22 0 0:00:00 JOSE MANUEL COBURN [facility] LAPAROSCOPY REMOVE ADNEXA 2019-07-22 00:00:00 [facility] Plan of Care Planned Activity Planned Date Details Comments Source Instructions Spontaneous [facility] Instructions Dysmenorrhea [facility] Instructions Abnormal Uterine Bleeding [facility] Encounters Start Date/Time End Date/Time Encounter Type Admission Type Attendi [facility] Care Department Encounter ID Source 2020-02-25 09:11:00 2020-02-25 13:00:00 Departed Emergency Room [facility] [id number] [facility] Me dical Cerulean 2019-11-28 07:55:00 2019-12-02 19:20:00 Discharged Inpatient 1 ERIC VAZQUEZ [facility] [id number] [facility] 2019-11-24 20:23:00 2019-11-24 23:34:00 Departed Emergency Room 1 JONO RICH [facility] [id number] [facility] 2019-11-23 18:09:00 2019-11-23 21:38:00 Departed Emergency Room 1 MARY MCKAY [facility] [id number] [facility] 2019-07-22 10:13:00 2019-07-24 09:09:00 Discharged Inpatient (obs) 1 JOSE MANUEL COBURN [facility] [id number] [facility] 2019-02-09 18:52:00 2019-02-09 23:23:00 Departed Emergency Room 1 JOSE MANUEL COBURN [facility] [id number] [facility] 2018-12-14 23:09:00 2018-12-15 01:02:00 Departed Emergency Room [facility] [id number] [facility] 2018-07-29 10:29:00 2018-07-29 15:15:00 Departed Emergency Room [facility] [id number] [facility] 2018-04-30 15:59:00 2018-05-03 12:47:00 Discharged Inpatient [facility] [id number] [facility] Results Test Description Test Time Test Comments Results Result Comments Source Blood leukocytes automated count (number/volume) 2020-02-25 09:20:00 Test Item White Blood Count (test code = 6690-2) 7.68 4.8-10.8 [facility] automated count (number/volume)2020-02-25 09:20:00* Test Item Value Reference Range Interpretation Comments Red Blood Count (test code = 789-8) 3.96 3.6-5.1 [facility] hemoglobin measurement (moles/volume)2020-02-25 09:20:00* Test Item Value Reference Range Interpretation Comments Hemoglobin (test code = 42053-0) 10.8 12.0-16.0 [facility] CampusAutomated blood hematocrit (volume fraction)2020-02-25 09:20:00* Test Item Value Reference Range Interpretation Comments Hematocrit (test code = 4544-3) 34.4 34.2-44.1 [facility] CampusAutomated erythrocyte mean corpuscular [id number] 09:20:00* Test Item Value Reference Range Interpretation Comments Mean Corpuscular Volume (test code = 787-2) 86.9 81-99 [facility] CampusAutomated erythrocyte mean corpuscular hemoglobin (mass per erythrocyte)2020-02-25 09:20:00* Test Item Value Reference Range Interpretation Comments Mean Corpuscular Hemoglobin (test code = 785-6) 27.3 28-32 [facility] CampusAutomated erythrocyte mean corpuscular hemoglobin concentration measurement (mass/volume)2020-02-25 09:20:00* Test Item Value Reference Range Interpretation Comments Mean Corpuscular Hemoglobin Concent (test code = 786-4) 31.4 31-35 [facility] CampusRDW KvgFn-[id number] 09:20:00* Test Item Value Reference Range Interpretation Comments Red Cell Distribution Width (test code = 59029-4) 14.6 11.7 -14.4 [facility] CampusAutcaromont [facility] blood platelet count (count/volume)2020-02-25 09:20:00* Test Item Value Reference Range Interpretation Comments Platelet Count (test code = 777-3) 213 140-360 [facility] CampusAutomated blood segmented neutrophil count as percentage of total lifdzhmdps0179-23-73 09:20:00* Test Item Value Reference Range Interpretation Comments Neutrophils (%) (Auto) (test code = 59846-4) 68.4 38.7-80.0 [facility] CampusAutomated blood lymphocyte count as percentage ot total uyhbnwdcyh9179-54-73 09:20:00* Test Item Value Reference Range Interpretation Comments Lymphocytes (%) (Auto) (test code = 736-9) 25.4 18.0-39.1 [facility] CampusAutomated blood monocyte count as percentage of total miewghqqkn5399-56-65 09:20:00* Test Item Value Reference Range Interpretation Comments Monocytes (%) (Auto) (test code = 5905-5) 5.6 4.4-11.3 [facility] CampusAutomated blood eosinophil count as percentage of total voamyiljef2565-09-65 09:20:00* Test Item Value Reference Range Interpretation Comments Eosinophils (%) (Auto) (test code = 713-8) 0.0 0.0-6.0 [facility] CampusAutomated blood basophil count as percentage of total jbqzywnmbp6918-27-33 09:20:00* Test Item Value Reference Range Interpretation Comments Basophils (%) (Auto) (test code = 706-2) 0.3 0.0-1.0 [facility] CampusFluoroscopic procedure less than one hour wbofhgrq4170-23-94 09:20:00* Test Item Value Reference Range Interpretation Comments IM GRANULOCYTES % (test code = IM GRANULOCYTES %) 0.3 0.0- 1.0 [facility] CampusAutomated blood neutrophil count 2020-02-25 09:20:00* Test Item Value Reference Range Interpretation Comments Neutrophils # (Auto) (test code = 751-8) 5.3 2.1-6.9 [facility] CampusBlood lymphocytes count (number/volume) 2020-02-25 09:20:00* Test Item Value Reference Range Interpretation Comments Lymphocytes # (Auto) (test code = 96044-6) 2.0 1.0-3.2 [facility] CampusBlood monocytes automated count (number/volume)2020-02-25 09:20:00* Test Item Value Reference Range Interpretation Comments Monocytes # (Auto) (test code = 742-7) 0.4 0.2-0.8 [facility] CampusAutomated blood eosinophil count 2020-02-25 09:20:00* Test Item Value Reference Range Interpretation Comments Eosinophils # (Auto) (test code = 711-2) 0.0 0.0-0.4 [facility] CampusAutomated blood basophil count (count/volume)2020-02-25 09:20:00* Test Item Value Reference Range Interpretation Comments Basophils # (Auto) (test code = 704-7) 0.0 0.0-0.1 [facility] CampusFluoroscopic procedure less than one hour rkqiowzw0064-97-86 09:20:00* Test Item Value Reference Range Interpretation Comments Absolute Immature Granulocyte (auto (dana t code = Absolute Immature Granulocyte (auto) 0.02 0-0.1 [facility] sodium measurement (moles/volume)2020-02-25 09:20:00* Test Item Value Reference Range Interpretation Comments Sodium Level (test code = 2951-2) 135 136-145 [facility] potassium measurement (moles/volume)2020-02-25 09:20:00* Test Item Value Reference Range Interpretation Comments Potassium Level (test code = 2823-3) 3.5 3.5-5.1 [facility] chloride measurement (moles/volume)2020-02-25 09:20:00* Test Item Value Reference Range Interpretation Comments Chloride Level (test code = 2075-0) 102 98-107 [facility] carbon dioxide, total measurement (moles/volume)2020-02-25 09:20:00* Test Item Value Reference Range Interpretation Comments Carbon Dioxide Level (test code = 2028-9) 22 22-29 [facility] anion ptv8288-83-02 09:20:00* Test Item Value Reference Range Interpretation Comments Anion Gap (test code = 28671-0) 14.5 8-16 [facility] urea nitrogen measurement (mass/volume)2020-02-25 09:20:00* Test Item Value Reference Range Interpretation Comments Blood Urea Nitrogen (test code = 3094-0) 12 7-26 [facility] creatinine measurement (mass/volume)2020-02-25 09:20:00* Test Item Value Reference Range Interpretation Comments Creatinine (test code = 2160-0) 1.08 0.57-1.11 [facility] plasma urea nitrogen/creatinine mass [id number] 09:20:00* Test Item Value Reference Range Interpretation Comments BUN/Creatinine Ratio (test code = 3097-3) 11 6-25 [facility] CampusEstimated glomerular filtration rate (GFR) zkschhpepccrg5818-26-42 09:20:00* Test Item Value Reference Range Interpretation Comments Estimat Glomerular Filtration Rate (test code = 566636754) > 60 >60 Ranges were taken from the National Kidney Disease Education Program and the [facility] Foundation literature.Reference ranges:60 or greater: Cmwarc69-11 ( for 3 consecutive months): Chronic kidney disease 15 or less: Kidney failureThe Hospitals of Providence Memorial CampusGlucose xpumfveaaur7702-58-46 09:20:00* Test Item Value Reference Range Interpretation Comments Glucose Level (test code = ERB7587) 133 74-118 [facility] calcium measurement (mass/volume)2020-02-25 09:20:00* Test Item Value Reference Range Interpretation Comments Calcium Level (test code = 15604-4) 9.2 8.4-10.2 [facility] total bilirubin measurement (mass/volume)2020-02-25 09:20:00* Test Item Value Reference Range Interpretation Comments Total Bilirubin (test code = 1975-2) 0.3 0.2-1.2 [facility] CampusFluoroscopic procedure less than one hour npqkutsi7019-48-69 09:20:00* Test Item Value Reference Range Interpretation Comments Aspartate Amino Transf (AST/SGOT) (test code = Aspartate Amino Transf (AST/SGOT)) 26 5-34 [facility] or plasma alanine aminotransferase measurement (enzymatic activity/volume)2020-02-25 09:20:00* Test Item Value Reference Range Interpretation Comments Alanine Aminotransferase (ALT/SGPT) (test code = 1742-6) 17 0-55 [facility] or plasma protein measurement (mass/volume)2020-02-25 09:20:00* Test Item Value Reference Range Interpretation Comments Total Protein (test code = 2885-2) 9.5 6.5-8.1 [facility] plasma albumin measurement (mass/volume)2020-02-25 09:20:00* Test Item Value Reference Range Interpretation Comments Albumin (test code = 1751-7) 3.7 3.5-5.0 [facility] CampusPlasma globulin measurement (mass/volume) 2020-02-25 09:20:00* Test Item Value Reference Range Interpretation Comments Globulin (test code = 15132-3) 5.8 2.3-3.5 [facility] or plasma albumin/globulin mass [id number] 09:20:00* Test Item Value Reference Range Interpretation Comments Albumin/Globulin Ratio (test code = 1759-0) 0.6 0.8-2.0 [facility] or plasma alkaline phosphatase measurement (enzymatic activity/volume)2020-02-25 09:20:00* Test Item Value Reference Range Interpretation Comments Alkaline Phosphatase (test code = 6768-6) 26 40-150 [facility]ere[facility] or plasma chorionic gonadotropin measurement (mass/volume)2020-02-25 09:20:00* Test Item Value Reference Range Interpretation Comments Human Chorionic Gonadotropin, Quant (test code = 85313-7) 24.53 0-10 [facility] CampusBASIC METABOLIC [id number] 13:52:00 * Test Item Value Reference Range Interpretation Comments SODIUM (test code = NA) 137 mmol/L 136-145 N POTASSIUM (test code = K) 4.1 mmol/L 3.5-5.1 N CHLORIDE (test code = CL) 105.0 mmol/L 98-107 N CARBON DIOXIDE (test code = CO2) 26.0 mmol/L 21-32 N ANION GAP (test code = GAP) 10.1 10-20 N GLUCOSE (test code = GLU) 101 mg/dL 74-106 N BLOOD UREA NITROGEN (test code = BUN) 8 mg/dL 7-18 N GLOMERULAR FILTRATION RATE (test code = GFR) > 60 mL/min >=60 Estimated GFR by using Modified MDRD formula.Chronic kidney disease is defined as either kidney damageor GFR <60 mL/min/1.73 m2 for >3 months. CREATININE (test code = CREAT) 1.00 mg/dL 0.55-1.02 N Note change in reference range due to change in reagent. BUN/CREATININE RATIO (test code = BUN/CREA) 8.3 10-20 L CALCIUM (test code = CA) 8.8 mg/dL 8.5-10.1 N HCG SERUM [id number] 13:52:00* Test Item Value Reference Range Interpretation Comments HCG SERUM BETA (test code = HCG) 171.0 mIU/mL 0-3 H Interfering substances present in the serum of somepatients may cause a false-positive result in this assay.Questionable elevations in serum hCG should be confirmedwith a urine hCG. Suspected Trophoblastic Neoplasms shouldnot be diagnosed based on serun hCG/beta hCG alone. Theymust be confirmed by clinical history and tissue diagnosis.INTERPRETATION:B-HCG LEVELS <5 SHOULD BE CONSIDERED "NEGATIVE." *WHEN BODERLINE RESULTS ARE ENCOUNTERED,PATIENT SAMPLESSHOULD BE REDRAWN 48 HOURS. 0-1 WEEKS AFTER CONCEPTION 5-50 MIU/ML1-2 WEEKS AFTER CONCEPTION 50-500 MIU/ML2-3 WEEKS AFTER CONCEPTION 100 -5,000 MIU/ML3-4 WEEKS AFTER CONCEPTION 500-10,000 MIU/ML4-5 WEEKS AFTER CONCEPTION 1000 -50,000 MIU/ML5-6 WEEKS AFTER CONCEPTION 10,000-100,000 MIU/ML6-8 WEEKS AFTER CONCEPTION 15,000- 200,000 MIU/ML2-3 MONTHS AFTER CONCEPTION 10,000-100,000 MIU/ML - US PREG 1ST [id number] 13:48:00 Name: CHRISTINE OTTO [facility] : 1990 Age/S: 29 / F [address] [facility] Unit #: [id number] Loc: L[place] [address] Phys: Qi Pratt ENROLLMENT ADVISOR Acct: [id number] Dis Date: Status: REG ER PHONE #: [phone] Exam Date: 02/20/2020 3160 FAX #: [phone] Reason: VAGINAL BLEEDING/PELVIC PAIN EXAMS: CPT CODE: [id number] US PREG 1ST TRIMTR 77032 EXAM: First trimester ultrasound, transvaginal ultrasound and duplex sonography; INFORMATION: patient with pelvic pain; hCG pending; status post left oophorectomy; TECHNIQUE AND FINDINGS: Transabdominal and transvaginal grayscale imaging was combined with color Doppler sonography and spectral analysis. The uterus is enlarged, measuring 12.5 x 7.3 x 7.7 cm. Stripe measures 1.3 cm in thickness. There is no evidence of an intrauterine gestational sac and there is no fluid collection within the endometrial canal. A solid nodular structure is seen in the anterior aspect of the myometrium probably representing a poorly defined fibroid. There is also a solid structure along the lateral aspect of the myom etrium near the right ovary. This is suspicious for a subserosal or possib ly pedunculated fibroid. The right ovary is of normal size and shape and w ith normal flow pattern on Doppler exam. It measures 4.4 x 2.8 x 2.2 cm. The absent. No evidence of a solid or cystic adnexal lesion and no fr ee fluid within the pelvis. IMPRESSION: 1. No evid ence of intrauterine gestation and no direct evidence of an ectopic preg sherice. However, if hCG indicates the possibility of ectopic ne eds to be considered and in that case I would recommend a short-term fol low-up study. 2. Probable uterine fibroids as described. Location code: [facility] at 1348 Reported and signed by: Tristen Isabel M.D. CC: Ashu Crocker MD; Qi Pratt NP Technologist: JONE RODRIGUEZ Trnscb Date/Time: 02/20/2020 (1348) t.[email or web address] W Orig Print D/T: S: 02/20/2020 (9401) Probe: PAGE 1 Signed Report - DUP AB/PEL/SC [id number] 13:48:00 Name: CHRISTINE OTTO [facility] : 1990 Age/S: 29 / F [address] [facility] Unit #: [id number] Loc: LY[place] [address] Phys: Qi Pratt NP Acct: [id number] Dis Date: Status: REG ER PHONE #: [phone] Exam Date: 02/20/2020 1245 FAX #: [phone] Reason: PELVIC PAIN EXAMS: CPT CODE: [id number] DUP AB/PEL/SC COMP 85993 EXAM: First trimester ultrasound, transvaginal ultrasound and duplex sonography; INFORMATION: patient with pelvic pain; hCG pending; status post left oophorectomy; TECHNIQUE AND FINDINGS: Transabdominal and transvaginal grayscale imaging was combined with color Doppler sonography and spectral analysis. The uterus is enlarged, measuring 12.5 x 7.3 x 7.7 cm. Stripe measures 1.3 cm in thickness. There is no evidence of an intrauterine gestational sac and there is no fluid collection within the endometrial canal. A solid nodular structure is seen in the anterior aspect of the myometrium probably representing a poorly defined fibroid. There is also a solid structure along the lateral aspect of the myom etrium near the right ovary. This is suspicious for a subserosal or possib ly pedunculated fibroid. The right ovary is of normal size and shape and w ith normal flow pattern on Doppler exam. It measures 4.4 x 2.8 x 2.2 cm. The absent. No evidence of a solid or cystic adnexal lesion and no fr ee fluid within the pelvis. IMPRESSION: 1. No evid ence of intrauterine gestation and no direct evidence of an ectopic preg sherice. However, if hCG indicates the possibility of ectopic ne eds to be considered and in that case I would recommend a short-term fol low-up study. 2. Probable uterine fibroids as described. Location code: [facility] at 1348 Reported and signed by: Tristen Isabel M.D. CC: Ashu Crocker MD; Qi Pratt NP Technologist: JONE RODRIGUEZ US Trnscb Date/Time: 02/20/2020 (1348) Elizabeth W Orig Print D/T: S: 02/20/2020 (4370) Probe: PAGE 1 Signed Report - US PREG UT [id number] 13:48:00 Name: CHRISTINE OTTO [facility] : 1990 Age/S: 29 / F [address] [facility] Unit #: [id number] Loc: L[place] [address] Phys: Qi Pratt ENROLLMENT ADVISOR Acct: [id number] Dis Date: Status: REG ER PHONE #: [phone] Exam Date: 02/20/2020 1245 FAX #: [phone] Reason: PELVIC PAIN EXAMS: CPT CODE: [id number] US PREG UT TRANSVAGINAL 73151 EXAM: First trimester ultrasound, transvaginal ultrasound and duplex sonography; INFORMATION: patient with pelvic pain; hCG pending; status post left oophorectomy; TECHNIQUE AND FINDINGS: Transabdominal and transvaginal grayscale imaging was combined with color Doppler sono graphy and spectral analysis. The uterus is enlarged, measuring 12.5 x 7.3 x 7.7 cm. Stripe measures 1.3 cm in thickness. There is no evidence of an intrauterine gestational sac and there is no fluid collection within the endometrial canal. A solid nodular structure is seen in the anterior aspect of the myometrium probably representing a poorly defined fibroid. There is also a solid structure along the lateral aspect of the myom etrium near the right ovary. This is suspicious for a subserosal or possib ly pedunculated fibroid. The right ovary is of normal size and shape and w ith normal flow pattern on Doppler exam. It measures 4.4 x 2.8 x 2.2 cm. The absent. No evidence of a solid or cystic adnexal lesion and no fr ee fluid within the pelvis. IMPRESSION: 1. No evid ence of intrauterine gestation and no direct evidence of an ectopic preg sherice. However, if hCG indicates the possibility of ectopic ne eds to be considered and in that case I would recommend a short-term fol low-up study. 2. Probable uterine fibroids as described. Location code: [facility] at 1348 Reported and signed by: Tristen Isabel M.D. CC: Ashu Crocker MD; Qi Pratt NP Technologist: JONE RODRIGUEZ Trnscb Date/Time: 02/20/2020 (1348) Elizabeth Ngo Orig Print D/T: S: 02/20/2020 (8246) Probe: [id number] X9 PAGE 1 Signed Report BASIC METABOLIC [id number] 13:39:00* Test Item Value Reference Range Interpretation Comments SODIUM (test code = NA) 137 mmol/L 136-145 N POTASSIUM (test code = K) 4.1 mmol/L 3.5-5.1 N CHLORIDE (test code = CL) 105.0 mmol/L 98-107 N CARBON DIOXIDE (test code = CO2) mmol/L 21-32 ANION GAP (test code = GAP) 10-20 GLUCOSE (test code = GLU) mg/dL 74-106 BLOOD UREA NITROGEN (test code = BUN) mg/dL 7-18 GLOMERULAR FILTRATION RATE (test code = GFR) mL/min >=60 CREATININE (test code = CREAT) mg/dL 0.55-1.02 BUN/CREATININE RATIO (test code = BUN/CREA) 10-20 CALCIUM (test code = CA) mg/dL 8.5-10.1 HCG SERUM [id number] 13:39:00* Test Item Value Reference Range Interpretation Comments HCG SERUM BETA (test code = HCG) mIU/mL 0-3 CBC W/O [id number] 13:30:00* Test Item Value Reference Range Interpretation Comments WHITE BLOOD CELL (test code = WBC) 4.4 K/mm3 4.5-12.5 L RED BLOOD CELL (test code = RBC) 3.50 mill/mm3 3.7-5.2 L HEMOGLOBIN (test code = HGB) 10.2 gram/dL 11.5-15.5 L HEMATOCRIT (test code = HCT) 31.4 % 36.0-46.0 L MEAN CELL VOLUME (test code = MCV) 89.7 fL 80-98 N MEAN CELL HGB (test code = MCH) 29.1 picogram 27.0-33.0 N MEAN CELL HGB CONCETRATION (test code = MCHC) 32.5 gram/dL 33.0-36. 0 L RED CELL DISTRIBUTION WIDTH (test code = RDW) 14.8 % 11.6-16. 2 N PLATELET COUNT (test code = PLT) 200 K/mm3 150-450 N MEAN PLATELET VOLUME (test code = MPV) 12.0 fL 6.7-11.0 H URINALYSIS [id number] 13:29:00* Test Item Value Reference Range Interpretation Comments UA COLOR (test code = COLU) Light-Yellow YELLOW UA APPEARANCE (test code = APPU) CLEAR CLEAR UA GLUCOSE DIPSTICK (test code = DGLUU) NEGATIVE mg/dL NEGATIVE UA BILIRUBIN DIPSTICK (test code = BILU) NEGATIVE mg/dL NEGATIVE UA KETONE DIPSTICK (test code = KETU) NEGATIVE mg/dL NEGATIVE UA SPECIFIC GRAVITY (test code = SGU) 1.019 1.001-1.035 UA BLOOD DIPSTICK (test code = SABAS) Negative mg/dL NEGATIVE UA PH DIPSTICK (test code = BETTYE) 6.5 5.0-8.0 UA PROTEIN DIPSTICK (test code = PROU) NEGATIVE mg/dL NEGATIVE UA UROBILINIOGEN DIPSTICK (test code = URO) Normal mg/dL NEGATIVE UA NITRITE DIPSTICK (test code = LAMONT) NEGATIVE NEGATIVE UA LEUKOCYTE ESTERASE W REFLEX (test code = LEUUR) NEGATIVE Gwyn/uL NEGATIVE UA WBC (test code = WBCU) 0-5 per HPF 0-5 UA RBC (test code = RBCU) 0-2 #/HPF 0-5 UA EPITHELIAL CELLS (test code = EPIU) MANY per HPF FEW UA BACTERIA (test code = BACU) NONE SEEN #/HPF NONE UA MUCUS (test code = MUCU) FEW #/LPF FEW Urine Source? Clean CatchURINALYSIS [id number] 13:03:00* Test Item Value Reference Range Interpretation Comments UA COLOR (test code = COLU) Light-Yellow YELLOW UA APPEARANCE (test code = APPU) CLEAR CLEAR UA GLUCOSE DIPSTICK (test code = DGLUU) NEGATIVE mg/dL NEGATIVE UA BILIRUBIN DIPSTICK (test code = BILU) NEGATIVE mg/dL NEGATIVE UA KETONE DIPSTICK (test code = KETU) NEGATIVE mg/dL NEGATIVE UA SPECIFIC GRAVITY (test code = SGU) 1.019 1.001-1.035 UA BLOOD DIPSTICK (test code = SABAS) Negative mg/dL NEGATIVE UA PH DIPSTICK (test code = BETTYE) 6.5 5.0-8.0 UA PROTEIN DIPSTICK (test code = PROU) NEGATIVE mg/dL NEGATIVE UA UROBILINIOGEN DIPSTICK (test code = URO) Normal mg/dL NEGATIVE UA NITRITE DIPSTICK (test code = LAMONT) NEGATIVE NEGATIVE UA LEUKOCYTE ESTERASE W REFLEX (test code = LEUUR) NEGATIVE Gwyn/uL NEGATIVE UA WBC (test code = WBCU) per HPF 0-5 UA RBC (test code = RBCU) per HPF 0-5 UA EPITHELIAL CELLS (test code = EPIU) per HPF Few UA BACTERIA (test code = BACU) per HPF NONE Urine Source? Clean CatchBASIC METABOLIC [id number] 14:30:00* Test Item Value Reference Range Interpretation Comments SODIUM (test code = NA) 141 mmol/L 136-145 N POTASSIUM (test code = K) 4.1 mmol/L 3.5-5.1 N CHLORIDE (test code = CL) 107.0 mmol/L 98-107 N CARBON DIOXIDE (test code = CO2) 28.0 mmol/L 21-32 N ANION GAP (test code = GAP) 10.1 10-20 N GLUCOSE (test code = GLU) 93 mg/dL 74-106 N BLOOD UREA NITROGEN (test code = BUN) 11 mg/dL 7-18 N GLOMERULAR FILTRATION RATE (test code = GFR) > 60 mL/min >=60 Estimated GFR by using Modified MDRD formula.Chronic kidney disease is defined as either kidney damageor GFR <60 mL/min/1.73 m2 for >3 months. CREATININE (test code = CREAT) 1.00 mg/dL 0.55-1.02 N Note change in reference range due to change in reagent. BUN/CREATININE RATIO (test code = BUN/CREA) 11.0 10-20 N CALCIUM (test code = CA) 8.2 mg/dL 8.5-10.1 L HCG SERUM [id number] 14:30:00* Test Item Value Reference Range Interpretation Comments HCG SERUM QUAL (test code = HCGQL) NEGATIVE NEGATIVE This HCGQL test is NOT applicable for MALE patients.Check with nurse about probable order error.If Tumor Marker Test needed, nurse should order test "HCGTU"(Test #550.14746) BASIC METABOLIC [id number] 14:25:00* Test Item Value Reference Range Interpretation Comments SODIUM (test code = NA) mmol/L 136-145 POTASSIUM (test code = K) mmol/L 3.5-5.1 CHLORIDE (test code = CL) mmol/L 98-107 CARBON DIOXIDE (test code = CO2) mmol/L 21-32 ANION GAP (test code = GAP) 10-20 GLUCOSE (test code = GLU) mg/dL 74-106 BLOOD UREA NITROGEN (test code = BUN) mg/dL 7-18 GLOMERULAR FILTRATION RATE (test code = GFR) mL/min >=60 CREATININE (test code = CREAT) mg/dL 0.55-1.02 BUN/CREATININE RATIO (test code = BUN/CREA) 10-20 CALCIUM (test code = CA) mg/dL 8.5-10.1 HCG SERUM [id number] 14:25:00* Test Item Value Reference Range Interpretation Comments HCG SERUM QUAL (test code = HCGQL) NEGATIVE NEGATIVE This HCGQL test is NOT applicable for MALE patients.Check with nurse about probable order error.If Tumor Marker Test needed, nurse should order test "HCGTU"(Test #550.92658) CBC W/AUTO [id number] 14:12:00* Test Item Value Reference Range Interpretation Comments WHITE BLOOD CELL (test code = WBC) 5.4 K/mm3 4.5-12.5 N RED BLOOD CELL (test code = RBC) 2.62 mill/mm3 3.7-5.2 L HEMOGLOBIN (test code = HGB) 7.8 gram/dL 11.5-15.5 L HEMATOCRIT (test code = HCT) 24.7 % 36.0-46.0 L MEAN CELL VOLUME (test code = MCV) 94.3 fL 80-98 N MEAN CELL HGB (test code = MCH) 29.8 picogram 27.0-33.0 N MEAN CELL HGB CONCETRATION (test code = MCHC) 31.6 gram/dL 33.0-36. 0 L RED CELL DISTRIBUTION WIDTH (test code = RDW) 15.2 % 11.6-16. 2 N RED CELL DISTRIBUTION WIDTH SD (test code = RDW-SD) 52.3 fL 37 .0-51.0 H PLATELET COUNT (test code = PLT) 161 K/mm3 150-450 N MEAN PLATELET VOLUME (test code = MPV) 11.9 fL 6.7-11.0 H NEUTROPHIL % (test code = NT%) 70.2 % 39.0-69.0 H IMMATURE GRANULOCYTE % (test code = IG%) 0.2 % 0.0-5.0 N LYMPHOCYTE % (test code = LY%) 23.0 % 25.0-55.0 L MONOCYTE % (test code = MO%) 6.4 % 0.0-10.0 N EOSINOPHIL % (test code = EO%) 0.0 % 0.0-5.0 N BASOPHIL % (test code = BA%) 0.2 % 0.0-1.0 N NUCLEATED RBC % (test code = NRBC%) 0.0 % 0-0 N NEUTROPHIL # (test code = NT#) 3.82 K/mm3 1.8-7.7 N IMMATURE GRANULOCYTE # (test code = IG#) 0.01 x10 3/uL 0-0.03 N LYMPHOCYTE # (test code = LY#) 1.25 K/mm3 1.0-5.0 N MONOCYTE # (test code = MO#) 0.35 K/mm3 0-0.8 N EOSINOPHIL # (test code = EO#) 0.00 K/mm3 0.0-0.5 N BASOPHIL # (test code = BA#) 0.01 K/mm3 0.0-0.2 N NUCLEATED RBC # (test code = NRBC#) 0.00 K/mm3 0.0-0.1 N LYMPH NODE,[id number] 16:06:00 RUN DATE: 12/17/19 [facility] RUN TIME: 1606 Specimen Inqui ry RUN USER: INTERFACE PATIENT: CHRISTINE OTTO ACCT #: V [id number] LOC: [place] U #: [id number] AGE/SX: 29/F [facility]: [facility]: Tio Melton MD : 88 BED: DIS: [facility] [place] [place]: SPEC #: [id number] RECD: 12/14/19 STATUS: REGULO RE #: [id number] TED: 12/14/[address] [facility] DR: Tio Melton MD ENTERED: 12/14/19 SP TYPE: BX LYMPH OTHR DR: Stephen Crocker MD ORDERED: GROSS COPIES TO: Tio Melton MD [address] [place] [address] Stephen Crocker MD [address] [facility] [address] [place] [address] [email or web address] PROCEDURES: GROSS (12/17/19-1453) TISSUES: LYMPH NODE, NOS - AXILLARY BX FS CLINICAL HISTORY COLLECTION DATE: 12/14/19 ENLARGED LYMPH NODE COMMENT The histologic features suggest reactive hyperplasia and no evid ence of a lymphoproliferative disorder was identified with flow cytometry. How ever, because the lymph node is quite enlarged and other abnormalities cannot b e excluded with flow cytometry the case was sent for hemepath consultation. In the consultative comment it is stated that the morphologic and immunophenotypi c findings show no evidence of lymphoma. However, there is a significant increa se in IgG4 positive plasma cells. This suggests IgG4 related disease (IgG4 RD). IgG4 RD is associated with sclerosing lesions of soft tissue and exocrine orga ns. These patients will often have elevated serum levels of IgG4 as well as jessica dence of autoimmune disorders. Evaluation by a head stock operator may be appropriat e. It may also be appropriate to screen this patient for autoimmunity as well a s serum IgG4. Importantly, patients with IgG4 RD tend to respond very well to steroid therapy and/or rituximab. Clinical correlation is recommended. Refe janice: Valerie kellogg al. Consensus statement on the pathology of IgG4 related di sease. Modern Path[employer], 2010. CONTINUED ON N EXT PAGE RUN DATE: 12/17/19 [facility] mela PAGE 2 RUN TIME: 1606 Sp ecimen Inquiry RUN USER: INTERFACE SPEC #: [id number] PATIENT: BYRON LOPEZALEXANDR BRUCEKALLIEELIANE #[id number] (Continued) FI NAL DIAGNOSIS LEFT AXILLARY LYMPH NODE, RESECTION: Increased IgG4 positive plasma cells with reactive lymphoid hyperplasia, see comment Dermatopathic pigment and tattoo pigment identified Electronic S ignature Binh Marina M.D. D [id number] FLOW CYTOMETRY Flow Cytometry Analysis Accession/Jaziel e No:[id number] Diagnosis:No flow immunophenotypic evidence of a lym phoproliferative disorder. Comments:B-cells are polyclonal and T-cells have no l oss of T-cell antigens. There is no flowimmunophenotypic evidence of a B- or T-c ell lymphoproliferative disorder. Please note thatHodgkin lymphoma, some large c ell lymphomas, and non-hematopoietic tumors cannot beexcluded by flow cytometry alone. Correlation with morphology, clinical history, and otherdiagnostic inform ation is recommended. Flow Differential (%) and Population Analysis:Lymphocytes: 97.9%T-cells (66% of lymphoid cells) show a CD4/CD8 ratio of about 1.9 without overt phenotypicabnormality.NK-cells (<1% of lymphoid cells) are unremarkable. Mature B-cells (32% of lymphoid cells)are polyclonal (kappa:lambda 1.2); B-cell events in some mulligan are too few to besignificant for adequate assessment, and some non-specific antibody binding/staining isalso noted. Monocytes: 0.4% Granulocytes: 0.5% CD45 Dim: 1.1% CD34+ cells are not detected. CONTINUED ON NEXT PAGE -- RUN DATE: 12/17/19 [place] [facility] PAGE 3 RUN TIME: 1606 Specimen Inquiry RUN USER: INTERFACE SPEC #: [id number] PATIENT: CHRISTINE OTTO #[id number] (Continued) FLOW CYTOMETRY (Continued) CD45 Ne.1% Plasma Cells: 1.2% Markers Performed:CD2, CD 3, CD4, CD5, CD7, CD8, CD10, CD11c, CD13, CD14, CD16, CD19, CD20, CD23, CD33, CD 34,CD38, CD45, CD56, CD64, CD117, HLA-DR, [place], Lambda (24 Markers) CPT Codes:8 8184x1, [id number], 46071e7 Microscopic DescriptionA digital image of a cytospin s lide was reviewed for QA purposes. Electronic Bonnie Carrillo M.D. The Technical Component Processing, Analysis and Professional Component of this test wascompleted at [facility], [address], [place], [place] / [address] /[phone] / CLIA# [id number] / Facing Grinder(s): Tio Gomez MD.This test was developed and its performance characteristics determined by the performinglaboratory. It has not been cleared or approved by the U.S. Food and Drug Administration.The FDA has determined that such clearance or approval is not necessary. This test is usedfor clinical purposes. It shoul d not be regarded as investigational or for research. Thislaboratory is certifie d under the Clinical Laboratory Improvement Amendments of 1988 (CLIA)as qualifie d to perform high complexity clinical testing.Images that may be included within this report are healthcare representative of the patient but notall testing in its entiret y and should not be used to render a result.The CPT codes provided with our test descriptions are based on AMA guidelines and are forinformational purposes only . Correct CPT coding is the sole responsibility of the billingparty. Please dire ct any questions regarding coding to the payer being billed. 2019 [employer] All rights reserved. [employer] and theassociated logo are trademarks of [employer] MACROSCOPIC T he specimen is received fresh in a container labeled with the patient's name, and identified as "left axillary node". It consists of a pink-haile nodular str ucture compatible lymph node with a small amount of attached yellow tissue. Th e specimen measures 3.8 x 3.0 by up to 1.7 cm. The cut surface of the tissue is pink-haile and homogenous. An area of schneider-black discoloration is noted cent rally. The remainder of lymph nodes is homogenous with no areas of hemorrhage or necrosis. No prominent fibrous bands are identified. Tissue is submitted for flow cytometry studies. Section Code: 1A-1D- healthcare representative tissue. GROSS PERFORMED AT [facility] CONTINUED ON NEXT PAGE RUN DATE: 12/17/19 [facility] PAGE 4 RUN TIME: 1606 Specimen Inquiry RUN USER: INTERFACE SPEC #: [id number] PATIENT: CHRISTINE OTTO #[id number] (Continue d) MACROSCOPIC (Continued) [facility] [address] [place] [address] (P)[phone] MICROSCOPIC All of the stains, including any controls performed, stain appropriately. MICROSCOPIC PERFORMED AT [facility] [address] [place] [address] (P) PERFORMING SITE Diagnosis performed at: [facility] are [facility] [address] [place] [address] Signed SIGNATURE O Vidal Sharpe MD 12/17/19 1606 END OF REPORT HCG SERUM [id number] 15:02:00* Test Item Value Reference Range Interpretation Comments HCG SERUM QUAL (test code = HCGQL) NEGATIVE NEGATIVE This HCGQL test is NOT applicable for MALE patients.Check with nurse about probable order error.If Tumor Marker Test needed, nurse should order test "HCGTU"(Test #550.93343) BASIC METABOLIC [id number] 15:01:00* Test Item Value Reference Range Interpretation Comments SODIUM (test code = NA) 142 mmol/L 136-145 N POTASSIUM (test code = K) 4.0 mmol/L 3.5-5.1 N CHLORIDE (test code = CL) 112.0 mmol/L 98-107 H CARBON DIOXIDE (test code = CO2) 24.0 mmol/L 21-32 N ANION GAP (test code = GAP) 10.0 10-20 N GLUCOSE (test code = GLU) 106 mg/dL 74-106 N BLOOD UREA NITROGEN (test code = BUN) 11 mg/dL 7-18 N GLOMERULAR FILTRATION RATE (test code = GFR) > 60 mL/min >=60 Estimated GFR by using Modified MDRD formula.Chronic kidney disease is defined as either kidney damageor GFR <60 mL/min/1.73 m2 for >3 months. CREATININE (test code = CREAT) 1.00 mg/dL 0.55-1.02 N Note change in reference range due to change in reagent. BUN/CREATININE RATIO (test code = BUN/CREA) 11.0 10-20 N CALCIUM (test code = CA) 8.4 mg/dL 8.5-10.1 L BASIC METABOLIC [id number] 14:56:00* Test Item Value Reference Range Interpretation Comments SODIUM (test code = NA) 142 mmol/L 136-145 N POTASSIUM (test code = K) 4.0 mmol/L 3.5-5.1 N CHLORIDE (test code = CL) 112.0 mmol/L 98-107 H CARBON DIOXIDE (test code = CO2) mmol/L 21-32 ANION GAP (test code = GAP) 10-20 GLUCOSE (test code = GLU) mg/dL 74-106 BLOOD UREA NITROGEN (test code = BUN) mg/dL 7-18 GLOMERULAR FILTRATION RATE (test code = GFR) mL/min >=60 CREATININE (test code = CREAT) mg/dL 0.55-1.02 BUN/CREATININE RATIO (test code = BUN/CREA) 10-20 CALCIUM (test code = CA) mg/dL 8.5-10.1 CBC W/AUTO [id number] 14:25:00* Test Item Value Reference Range Interpretation Comments WHITE BLOOD CELL (test code = WBC) 4.2 K/mm3 4.5-12.5 L RED BLOOD CELL (test code = RBC) 3.17 mill/mm3 3.7-5.2 L HEMOGLOBIN (test code = HGB) 9.3 gram/dL 11.5-15.5 L HEMATOCRIT (test code = HCT) 29.5 % 36.0-46.0 L MEAN CELL VOLUME (test code = MCV) 93.1 fL 80-98 N MEAN CELL HGB (test code = MCH) 29.3 picogram 27.0-33.0 N MEAN CELL HGB CONCETRATION (test code = MCHC) 31.5 gram/dL 33.0-36. 0 L RED CELL DISTRIBUTION WIDTH (test code = RDW) 14.7 % 11.6-16. 2 N RED CELL DISTRIBUTION WIDTH SD (test code = RDW-SD) 50.2 fL 37 .0-51.0 N PLATELET COUNT (test code = PLT) 271 K/mm3 150-450 N MEAN PLATELET VOLUME (test code = MPV) 11.3 fL 6.7-11.0 H NEUTROPHIL % (test code = NT%) 61.0 % 39.0-69.0 N IMMATURE GRANULOCYTE % (test code = IG%) 0.2 % 0.0-5.0 N LYMPHOCYTE % (test code = LY%) 31.5 % 25.0-55.0 N MONOCYTE % (test code = MO%) 6.6 % 0.0-10.0 N EOSINOPHIL % (test code = EO%) 0.2 % 0.0-5.0 N BASOPHIL % (test code = BA%) 0.5 % 0.0-1.0 N NUCLEATED RBC % (test code = NRBC%) 0.0 % 0-0 N NEUTROPHIL # (test code = NT#) 2.57 K/mm3 1.8-7.7 N IMMATURE GRANULOCYTE # (test code = IG#) 0.01 x10 3/uL 0-0.03 N LYMPHOCYTE # (test code = LY#) 1.33 K/mm3 1.0-5.0 N MONOCYTE # (test code = MO#) 0.28 K/mm3 0-0.8 N EOSINOPHIL # (test code = EO#) 0.01 K/mm3 0.0-0.5 N BASOPHIL # (test code = BA#) 0.02 K/mm3 0.0-0.2 N NUCLEATED RBC # (test code = NRBC#) 0.00 K/mm3 0.0-0.1 N MANUAL DIFF REQUIRED (test code = MDIFF) NO Coronavirus (PCR)2019-12-05 07:09:00* Test Item Value Reference Range Interpretation Comments Coronavirus (PCR) (test code = Coronavirus (PCR)) NOT DETECTED NOTD ETECTED CORONAVIRUS XKLJ-VBL-7-RT-PCR (RESPIRATORY)This test has been validated but FDA' s independent review of the validation is pending. This test is performed as a l aboratory developed test; independent review of the validation under FDA's Emerg ency Use Authorization (EUA) authority will be performed according to current [facility] requirements.We will continue to follow federal and state requirements fo r both notification of results and confirmatory testing that is required by [facility] her agency.This test was developed and its performance characteristics determine d by [email or web address]. It has not been cleared or approved by the U.S. Food and Drug Administration. Results should be used in conjunction with clinical finding s, and should not form the sole basis for a diagnosis or treatment decision.Spec imen sent to [facility] and performed at [employer], [address] [place] [address]. [id number] Hospitals of Providence Memorial CampusBlood [id number] 18:46:00* Test Item Value Reference Range Interpretation Comments Blood Culture (test code = 46167389) NO GROWTH AFTER 5 DAYS, FINAL REPORT [facility] CampusAlbumin (PEP)2019-12-02 13:53:00* Test Item Value Reference Range Interpretation Comments Albumin (PEP) (test code = Albumin (PEP)) 3.0 2.9-4.4 [facility] CampusAlpha-1-Qscayjcds2645-61-25 13:53:00* Test Item Value Reference Range Interpretation Comments Xblse-0-Tjuwvaqob (test code = 2865-4) 0.3 0.0-0.4 [facility] CampusAlpha-2-Maqfehdlq8812-96-47 13:53:00* Test Item Value Reference Range Interpretation Comments Rhcmi-6-Cthozwclz (test code = 2868-8) 0.7 0.4-1.0 [facility] CampusBeta Gamma Qndrlwvg2258-11-82 13:53:00* Test Item Value Reference Range Interpretation Comments Beta Gamma Globulin (test code = 2871-2) 1.1 0.7-1.3 [facility] CampusGamma Agjoezcpj4544-67-59 13:53:00* Test Item Value Reference Range Interpretation Comments Gamma Globulins (test code = 2874-6) 3.9 0.4-1.8 H [facility] CampusTotal Protein (PEP)2019-12-02 13:53:00* Test Item Value Reference Range Interpretation Comments Total Protein (PEP) (test code = 2885-2) 9.0 6.0-8.5 H [facility] CampusGlobulin2020-03-25 13:53:00* Test Item Value Reference Range Interpretation Comments Globulin (test code = 00288-7) 6.0 2.2-3.9 H [facility] CampusKappa Light Chain Pytishte6816-41-92 13:53:00* Test Item Value Reference Range Interpretation Comments [place] Light Chain Analysis (test code = 89975-1) 236.5 3.3-1 9.4 H [facility] CampusLambda Light Chain Mweyqulo8109-24-75 13:53:00* Test Item Value Reference Range Interpretation Comments Lambda Light Chain Analysis (test code = 57216-5) 201.9 5.7- 26.3 H [facility] CampusTotl [place]/Lambda Light Chain Ratio 2019-12-02 13:53:00* Test Item Value Reference Range Interpretation Comments Totl [place]/Lambda Light Chain Ratio (test code = 03286-5) 1.17 0.26-1.65 Performed at: - [facility] [id number] Director: Aba Brantley MD, Phone: [phone] at: DA - [facility] [address], [place], [place] [id number] Director: DEBRA Daniel MD, Phone: [phone] Hospitals of Providence Memorial CampusProtein Electrophoresis T-Fcxlh5323-94Phpcu2279-01-45 13:53:00* Test Item Value Reference Range Interpretation Comments Protein Electrophoresis M-Clay (test code = 96507-5) Not Observ ed Not Observed [facility] CampusAlbumin/Globulin Rfxpc8605-80-56 13:53:00 * Test Item Value Reference Range Interpretation Comments Albumin/Globulin Ratio (test code = 1759-0) 0.5 0.7-1.7 L [facility] CampusProtein Electrophoresis [id number] 13:53:00* Test Item Value Reference Range Interpretation Comments Protein Electrophoresis Note (test code = Protein Electropho resis Note) Comment . Protein electrophoresis scan will follow via computer,mail, or rural carrier delivery. [facility] CampusAnti-Double Strand DNA Takcuuyj2941-73-80 22:14:00* Test Item Value Reference Range Interpretation Comments Anti-Double Strand DNA Antibody (test code = 5130-0) 3 0 -9 Negative <5 Equivocal 5 - 9 Positive > 9Performed at: [employer] [address] [id number] Director: Aba Brantley MD, Phone: [phone] Hospitals of Providence Memorial CampusRheumatoid Iqpmlk3945-27-04 22:14:00* Test Item Value Reference Range Interpretation Comments Rheumatoid Factor (test code = 76374-7) <10.0 0.0-13.9 Performed at: [facility] [address] [id number] Director: Aba Brantley MD, Phone: [phone] Hospitals of Providence Memorial CampusUrine Jicribb6833-52-89 22:14:00* Test Item Value Reference Range Interpretation Comments Urine Protein (test code = 2888-6) 6.0 Not Estab. [facility] CampusUrine Kbzdiad2708-97-95 22:14:00* Test Item Value Reference Range Interpretation Comments Urine Albumin (test code = 97409-1) 41.0 . [facility] CampusUrine Eswiy-5-Jebsbikb7014-03-24 22:14:00 * Test Item Value Reference Range Interpretation Comments Urine Hyhsk-9-Dntynuap (test code = 55031-1) 4.6 . [facility] CampusUrine Naiil-7-Ynnnyfcof0532-03-24 22:14:00* Test Item Value Reference Range Interpretation Comments Urine Wmyxv-0-Fbtsfbsyy (test code = 89944-2) 8.5 . [facility] CampusUrine Beta Crjchqvv3916-09-99 22:14:00* Test Item Value Reference Range Interpretation Comments Urine Beta Globulin (test code = 02828-3) 19.9 . [facility] CampusUrine Gamma Ujzhpyzj4247-60-80 22:14:00* Test Item Value Reference Range Interpretation Comments Urine Gamma Globulin (test code = 53396-9) 26.0 . [facility] CampusUrine Random PEP M-Clay %2019-12-01 22:14:00* Test Item Value Reference Range Interpretation Comments Urine Random PEP M-Clay % (test code = 71813-3) Not Observed Not O bserved [facility] CampusProtein Electrophoresis Wmmy7647-50-09 22:14:00* Test Item Value Reference Range Interpretation Comments Protein Electrophoresis Note (test code = Protein Electropho resis Note) Comment . Protein electrophoresis scan will follow via computer,mail, or rural carrier delivery. Performed at: [employer] [facility] [employer] [id number] Director: Aba Brantley MD, Phone: [phone] at: [facility] [employer] [id number] Director: DEBRA Daniel MD, Phone: [phone] Hospitals of Providence Memorial CampusUrine Immunofixation 2019-12-01 22:13:00* Test Item Value Reference Range Interpretation Comments Urine Immunofixation (test code = 089894600) Note: . Immunofixation shows IgG monoclonal protein with no confirmedlight chain associa tion, which is suggestive of Heavy ChainDisease. Recommend retesting in -10 we ks.Performed at: [facility] [address]Lab Director: DEBRA Daniel MD, Phone: [phone] Hospitals of [facility] CampusErythrocyte Sedimentation Dcum9779-63-30 09:30:00* Test Item Value Reference Range Interpretation Comments Erythrocyte Sedimentation Rate (test code = 4537-7) 87 0- 20 H [facility] CampusDifferential Total Cells Counted 2019-11-30 08:02:00* Test Item Value Reference Range Interpretation Comments Differential Total Cells Counted (test code = South tial Total Cells Counted) 100 [facility] CampusNeutrophils % (Manual)2019-11-30 08:02:00 * Test Item Value Reference Range Interpretation Comments Neutrophils % (Manual) (test code = 36602-5) 59 40-74 [facility] CampusLymphocytes % (Manual)2019-11-30 08:02:00 * Test Item Value Reference Range Interpretation Comments Lymphocytes % (Manual) (test code = 737-7) 35 19-48 [facility] CampusMonocytes % (Manual)2019-11-30 08:02:00* Test Item Value Reference Range Interpretation Comments Monocytes % (Manual) (test code = 744-3) 5 3.4-9.0 [facility] CampusEosinophils % (Manual)2019-11-30 08:02:00 * Test Item Value Reference Range Interpretation Comments Eosinophils % (Manual) (test code = 714-6) 1 0-7 [facility] CampusWhite Blood Ngoaq8665-12-62 06:23:00* Test Item Value Reference Range Interpretation Comments White Blood Count (test code = 6690-2) 4.85 4.8-10.8 [facility] CampusRed Blood Jirmb5236-93-47 06:23:00* Test Item Value Reference Range Interpretation Comments Red Blood Count (test code = 789-8) 3.71 3.6-5.1 [facility] CampusHemoglobin2020-03-23 06:23:00* Test Item Value Reference Range Interpretation Comments Hemoglobin (test code = 22142-7) 10.7 12.0-16.0 L [facility] CampusHematocrit2020-03-23 06:23:00* Test Item Value Reference Range Interpretation Comments Hematocrit (test code = 4544-3) 34.2 34.2-44.1 [facility] CampusMean Corpuscular Pxielr7364-58-83 06:23:00* Test Item Value Reference Range Interpretation Comments Mean Corpuscular Volume (test code = 787-2) 92.2 81-99 [facility] Corpuscular Dzxlxikxll1089-11-13 06:23:00* Test Item Value Reference Range Interpretation Comments Mean Corpuscular Hemoglobin (test code = 785-6) 28.8 28-32 [facility] Corpuscular Hemoglobin Concent 2019-11-30 06:23:00* Test Item Value Reference Range Interpretation Comments Mean Corpuscular Hemoglobin Concent (test code = 786-4) 31.3 31-35 [facility] CampusRed Cell Distribution Ecjev4420-52-10 06:23:00* Test Item Value Reference Range Interpretation Comments Red Cell Distribution Width (test code = 84811-5) 13.8 11.7 -14.4 [facility] CampusPlatelet Wzsgl2574-91-44 06:23:00* Test Item Value Reference Range Interpretation Comments Platelet Count (test code = 777-3) 250 140-360 [facility] CampusFluoroscopic procedure less than one hour tnzxzdbz9908-93-51 05:50:00* Test Item Value Reference Range Interpretation Comments Differential Total Cells Counted (test code = Differen tial Total Cells Counted) 100 [facility] blood neutrophils/100 leukocytes 2019-11-30 05:50:00* Test Item Value Reference Range Interpretation Comments Neutrophils % (Manual) (test code = 38401-9) 59 40-74 [facility] blood lymphocytes/100 leukocytes 2019-11-30 05:50:00* Test Item Value Reference Range Interpretation Comments Lymphocytes % (Manual) (test code = 737-7) 35 19-48 [facility] blood monocytes/100 leukocytes 2019-11-30 05:50:00* Test Item Value Reference Range Interpretation Comments Monocytes % (Manual) (test code = 744-3) 5 3.4-[address] [facility] blood eosinophil count as percentage of total yotlacehfz2711-70-60 05:50:00* Test Item Value Reference Range Interpretation Comments Eosinophils % (Manual) (test code = 714-6) 1 0-7 [facility] CampusErythrocyte sedimentation rate by Westergren omglmp3627-38-91 05:50:00* Test Item Value Reference Range Interpretation Comments Erythrocyte Sedimentation Rate (test code = 4537-7) 87 0- 20 [facility] CampusFluoroscopic procedure less than one hour jlvgekyp8883-27-39 05:50:00* Test Item Value Reference Range Interpretation Comments Albumin (PEP) (test code = Albumin (PEP)) 3.0 2.9-4.4 [facility]ererum or plasma alpha 1 globulin measurement by electrophoresis (mass/volume)2019-11-30 05:50:00* Test Item Value Reference Range Interpretation Comments Kybxk-4-Plmsaepiz (test code = 2865-4) 0.3 0.0-0.4 [facility]ererum or plasma alpha 2 globulin measurement by electrophoresis (mass/volume)2019-11-30 05:50:00* Test Item Value Reference Range Interpretation Comments Qthyr-5-Oalnnrumf (test code = 2868-8) 0.7 0.4-1.0 [facility]ererum or plasma beta globulin measurement by electrophoresis (mass/volume)2019-11-30 05:50:00* Test Item Value Reference Range Interpretation Comments Beta Gamma Globulin (test code = 2871-2) 1.1 0.7-1.3 [facility]ererum or plasma gamma globulin measurement by electrophoresis (mass/volume)2019-11-30 05:50:00* Test Item Value Reference Range Interpretation Comments Gamma Globulins (test code = 2874-6) 3.9 0.4-1.8 [facility]ererum or plasma protein measurement (mass/volume)2019-11-30 05:50:00* Test Item Value Reference Range Interpretation Comments Total Protein (PEP) (test code = 2885-2) 9.0 6.0-8.5 [facility] Centererum globulin measurement by calculation (mass/volume)2019-11-30 05:50:00* Test Item Value Reference Range Interpretation Comments Globulin (test code = 57386-5) 6.0 2.2-3.9 [facility] Centererum immunoglobulin kappa light chains measurement (mass/volume)2019-11-30 05:50:00* Test Item Value Reference Range Interpretation Comments [place] Light Chain Analysis (test code = 56948-9) 236.5 3.3-1 9.4 [facility]ererum or plasma immunoglobulin free lambda light chains measurement (mass/volume)2019-11-30 05:50:00* Test Item Value Reference Range Interpretation Comments Lambda Light Chain Analysis (test code = 58107-3) 201.9 5.7- 26.3 [facility]ererum immunoglobulin kappa light chains/immunoglobulin lambda light chains mass dodlw2310-14-21 05:50:00* Test Item Value Reference Range Interpretation Comments Totl [place]/Lambda Light Chain Ratio (test code = 16911-8) 1.17 0.26-1.65 Performed at: - [facility] [id number] Director: Aba Brantley MD, Phone: [phone] at: - [facility] [address] [id number] Director: DEBRA Daniel MD, Phone: [phone] [facility] Medical Centererum or plasma protein monoclonal measurement by electrophoresis (mass/volume)2019-11-30 05:50:00* Test Item Value Reference Range Interpretation Comments Protein Electrophoresis M-Clay (test code = 06063-0) Not Observ ed Not Observed [facility]ererum or plasma albumin/globulin mass nxgda9896-69-79 05:50:00* Test Item Value Reference Range Interpretation Comments Albumin/Globulin Ratio (test code = 1759-0) 0.5 0.7-1.7 [facility] CampusFluoroscopic procedure less than one hour vkljpxnu0303-09-89 05:50:00* Test Item Value Reference Range Interpretation Comments Protein Electrophoresis Note (test code = Protein Electropho resis Note) Comment . Protein electrophoresis scan will follow via computer,mail, or rural carrier delivery. [facility] Centererum DNA double strand antibody assay (units/volume)2019-11-30 05:50:00* Test Item Value Reference Range Interpretation Comments Anti-Double Strand DNA Antibody (test code = 5130-0) 3 0 -9 Negative <5 Equivocal 5 - 9 Positive > 9Performed at: [facility] - [facility] [address] [place], [place] [id number] b Director: Aba Brantley MD, Phone: [phone] Palmas Medical Centererum nuclear antibody titer by gexeqczahhhujquyyq4345-34-64 05:50:00* Test Item Value Reference Range Interpretation Comments Anti-Nuclear Antibody Screen (test code = 5048-4) Positive [facility] Centererum nuclear antibody pattern homogenous qkdrq0591-68-43 05:50:00* Test Item Value Reference Range Interpretation Comments Anti-Nuclear Ab Homogeneous Pattern (test code = 94066-4) 1:1280 [facility] CampusFluoroscopic procedure less than one hour omxhxrjp3230-02-54 05:50:00* Test Item Value Reference Range Interpretation Comments Anti-Nuclear Antibody Comment (test code = Anti-Nuclea r Antibody Comment) See Comment A positive CHARLES result may occur in healthy individuals (low titer) or be associa rona with a variety of diseases. See interpretation chart which is not all inclus shavon: Pattern Antigen Detected Suggested Disease Association --- Homogeneous DNA(ds,ss) SLE - H igh titers Nucleosomes, Histones Drug-induced SL E Speckled Sm, D[employer]QUIPMENT IN[employer]ER AND SERVICER , SCL-70, SLE,MCTD,PSS (diffuse form), SS-A/SS-B Sjogrens --- -------- Nucleolar SCL-70, PM-1 /SCL High titers Scleroderma, PM/DM --- Centromere Centromere PSS (li mited form) w/Crest syndrome variable - Nuclear Dot Sp100,j53-ayfcez Prima ry Biliary Cirrhosis Nuclear GP210, Primary Biliary Cirrhosis Membrane renetta A,B,C - Testing performed by:Jana Manuel [address] [phone]: Aba Brantley MD [facility]ererum or plasma rheumatoid factor measurement (units/volume)2019-11-30 05:50:00* Test Item Value Reference Range Interpretation Comments Rheumatoid Factor (test code = 92688-1) <10.0 0.0-13.9 Performed at: [employer] - [facility] [address] [id number] Director: Aba Brantley MD, Phone: [phone] Hospitals of Providence Memorial CampusFluoroscopic procedure less than one hour gbgwnjmo6451-67-83 05:50:00* Test Item Value Reference Range Interpretation Comments TB Test (T-Spot) (test code = TB Test (T-Spot)) See Comment RESULT: NEGATIVEA negative test result does not exclude the possibility of expos ure to or infection with Mycobacterium tuberculosis (M. tuberculosis). Patients with recent exposure to TB infected individuals exhibiting a negative T-Spot.TB result should be considered for retesting within 6 weeks or if other relevent cl inical symptoms indicate. Results from T-Spot.TB testing must be used in conjunc tion with each individual's epiemiological history, current medical status, and results of other diagnostic evaluations. The T-Spot.TB test is qualitative and r esults are reported as positive, borderline or negative, given that the test con trols perform are expected. In line with the Centers for Disease Control Control and Prevention's 2010 recommendation to report quantitative measurements alongs kristian the qualitative result, the laboratory provides spot counts for the informa tional purposes only. The T-Spot.TB test should not be interpreted as a quantita tive test.Panel A Spot Count (Corrected for Negative Control) 1 Panel B S pot Count(Corrected for Negative Control) 4Negative Control PassedPositive Control PassedTe sting performed by:[facility] [place], [place] [phone]: [facility] HospitalUrine immunofixation oreovlqctzrpyu1992-15-69 13:57:00* Test Item Value Reference Range Interpretation Comments Urine Immunofixation (test code = 021320326) Note: . Immunofixation shows IgG monoclonal protein with no confirmedlight chain associa tion, which is suggestive of Heavy ChainDisease. Recommend retesting in -10 we.Performed at: [facility] [address] [address]Lab Director: DEBRA Daniel MD, Phone: [phone] Hospitals of Providence Memorial CampusUrine protein measurement (mass/volume)2019-11-29 13:57:00* Test Item Value Reference Range Interpretation Comments Urine Protein (test code = 2888-6) 6.0 Not Estab. [facility]24 hour urine albumin/total protein ratio by shkinqtkamsblbx0764-94-57 13:57:00* Test Item Value Reference Range Interpretation Comments Urine Albumin (test code = 56801-5) 41.0 . [facility]24 hour urine alpha 1 globulin/total protein by qooozykkezoqimh4312-99-10 13:57:00* Test Item Value Reference Range Interpretation Comments Urine Qtrvh-0-Lsnwrpkm (test code = 92356-7) 4.6 . [facility]24 hour urine alpha 2 globulin/total protein by vcjzkmydbqobdnz7286-54-29 13:57:00* Test Item Value Reference Range Interpretation Comments Urine Ixuaa-3-Mpmhbljem (test code = 70471-3) 8.5 . [facility]24 hour urine beta globulin/total protein ratio by rlcefbjbcgrtyoe1944-12-01 13:57:00* Test Item Value Reference Range Interpretation Comments Urine Beta Globulin (test code = 59333-6) 19.9 . [facility]24 hour urine gamma globulin/total protein ratio by bwcjjkjmjegscdz7410-70-47 13:57:00* Test Item Value Reference Range Interpretation Comments Urine Gamma Globulin (test code = 08374-8) 26.0 . [facility] CampusUrine protein monoclonal/total protein by hkkuryumjrlajde5246-17-94 13:57:00* Test Item Value Reference Range Interpretation Comments Urine Random PEP M-Clay % (test code = 59851-4) Not Observed Not O bserved [facility] CampusFluoroscopic procedure less than one hour xjmawcjl2774-38-21 13:57:00* Test Item Value Reference Range Interpretation Comments Protein Electrophoresis Note (test code = Protein Electropho resis Note) Comment . Protein electrophoresis scan will follow via computer,mail, or rural carrier delivery. Performed at: - [facility] [id number] Director: Aba Brantley MD, Phone: [phone] at: DA - [facility] [address] [id number] Director: DEBRA Daniel MD, Phone: [phone] Hospitals of Providence Memorial CampusInfluenza Virus Types A,B Aczstyi3155-72-91 06:47:00* Test Item Value Reference Range Interpretation Comments Influenza Virus Types A,B Antigen (test code = 18512-2) NEGATIVE NEGATIVE [facility]ererum or plasma HIV 1 RNA viral load by probe and target amplification method (number/volume)2019-11-29 06:45:00* Test Item Value Reference Range Interpretation Comments HIV-1 RNA, Quantitative copies/mL (test code = 20005-3) <20 . HIV-1 RNA not detectedThe reportable range for this assay is 20 to 10,000,000cop ies HIV-1 RNA/mL.[facility] CampusChlamydia pneumoniae DNA (PCR)2019-11-29 05:35:00* Test Item Value Reference Range Interpretation Comments Chlamydia pneumoniae DNA (PCR) (test code = Chlamydia pneumoniae DNA (PCR)) NOT DETECTED NOT DETECT Test performed at [facility] [place] [phone] HAVE BEEN CALLED TO THE PHYSICIANThe Hospitals of Providence Memorial CampusInfluenza Type A (RT-PCR)2019-11-29 05:35:00* Test Item Value Reference Range Interpretation Comments Influenza Type A (RT-PCR) (test code = 975091539) NOT DETECTED NOT DETECT [facility] CampusMycoplasma pneumoniae (PCR)2019-11-29 05:35:00* Test Item Value Reference Range Interpretation Comments Mycoplasma pneumoniae (PCR) (test code = Mycoplasma pn eumoniae (PCR)) NOT DETECTED NOT DETECT [facility] CampusInfluenza Type B (RT-PCR)2019-11-29 05:35:00* Test Item Value Reference Range Interpretation Comments Influenza Type B (RT-PCR) (test code = 211885328) NOT DETECTED NOT DETECT [facility] CampusRespiratory Syncytial Virus (PCR) 2019-11-29 05:35:00* Test Item Value Reference Range Interpretation Comments Respiratory Syncytial Virus (PCR) (test code = 002756351) NO T DETECTED NOT DETECT [facility] CampusBordetella pertussis DNA (PCR)2019-11-29 05:35:00* Test Item Value Reference Range Interpretation Comments Bordetella pertussis DNA (PCR) (test code = 968104284) NOT DETEC RONA NOT DETECT [facility] CampusParainfluenza Type 1 (PCR)2019-11-29 05:35:00* Test Item Value Reference Range Interpretation Comments Parainfluenza Type 1 (PCR) (test code = 373603000) NOT DETECTED NOT DETECT [facility] CampusParainfluenza Type 2 (PCR)2019-11-29 05:35:00* Test Item Value Reference Range Interpretation Comments Parainfluenza Type 2 (PCR) (test code = 781285603) NOT DETECTED NOT DETECT [facility] CampusParainfluenza Type 3 (PCR)2019-11-29 05:35:00* Test Item Value Reference Range Interpretation Comments Parainfluenza Type 3 (PCR) (test code = 572175861) NOT DETECTED NOT DETECT [facility] CampusParainfluenza Type 4 (PCR)2019-11-29 05:35:00* Test Item Value Reference Range Interpretation Comments Parainfluenza Type 4 (PCR) (test code = Parainfluenza Type 4 (PCR)) NOT DETECTED NOT DETECT [facility] CampusRhinovirus (PCR)2019-11-29 05:35:00* Test Item Value Reference Range Interpretation Comments Rhinovirus (PCR) (test code = 345443640) NOT DETECTED NOT DETECT [facility] Metapneumovirus (PCR)2019-11-29 05:35:00* Test Item Value Reference Range Interpretation Comments Human Metapneumovirus (PCR) (test code = 889683158) DETECTED NO T DETECT ABNORMALCHI [facility] SouthAdenovirus (PCR)2019-11-29 05:35:00* Test Item Value Reference Range Interpretation Comments Adenovirus (PCR) (test code = 551902879) NOT DETECTED NOT DETECT [facility] CampusCoronavirus Type HKU1 (PCR)2019-11-29 05:35:00* Test Item Value Reference Range Interpretation Comments Coronavirus Type HKU1 (PCR) (test code = Coronavirus T ype HKU1 (PCR)) NOT DETECTED NOT DETECT [facility] CampusCoronavirus Type NL63 (PCR)2019-11-29 05:35:00* Test Item Value Reference Range Interpretation Comments Coronavirus Type NL63 (PCR) (test code = Coronavirus T ype NL63 (PCR)) NOT DETECTED NOT DETECT [facility] CampusCoronavirus Type OC43 (PCR)2019-11-29 05:35:00* Test Item Value Reference Range Interpretation Comments Coronavirus Type OC43 (PCR) (test code = Coronavirus T ype OC43 (PCR)) NOT DETECTED NOT DETECT [facility] CampusCoronavirus Type 229E (PCR)2019-11-29 05:35:00* Test Item Value Reference Range Interpretation Comments Coronavirus Type 229E (PCR) (test code = Coronavirus T ype 229E (PCR)) NOT DETECTED NOT DETECT Test performed at [facility] [place] [address]RESULTS HAVE BEEN CALLED TO THE PHYSICIANThe Hospitals of [facility] Memorial CampusInfluenza virus A and B antigen identification by immunofluorescence 2019-11-29 05:28:00* Test Item Value Reference Range Interpretation Comments Influenza Virus Types A,B Antigen (test code = 53619-8) NEGATIVE NEGATIVE [facility] CampusHIV (1&2) Vmybgsov5763-02-85 17:15:00* Test Item Value Reference Range Interpretation Comments HIV (1&2) Antibody (test code = 60311-2) NON-REACTIVE NONREACTIVE [facility] CampusHIV P24 Maywaev9967-80-19 17:15:00* Test Item Value Reference Range Interpretation Comments HIV P24 Antigen (test code = HIV P24 Antigen) NON-REACTIVE NONREACT SHAVON [facility] CampusHIV 1 and 2 antibody detection qualitative by rapid qkvfbhmqwal4069-57-90 16:00:00* Test Item Value Reference Range Interpretation Comments HIV (1&2) Antibody (test code = 10016-3) NON-REACTIVE NONREACTIVE [facility] CampusFluoroscopic procedure less than one hour xqrkqogf7483-69-43 16:00:00* Test Item Value Reference Range Interpretation Comments HIV P24 Antigen (test code = HIV P24 Antigen) NON-REACTIVE NONREACT SHAVON [facility] CampusTotal Efycdirip0417-87-48 08:33:00* Test Item Value Reference Range Interpretation Comments Total Bilirubin (test code = 1975-2) 0.4 0.2-1.2 [facility] CampusAspartate Amino Transf (AST/SGOT) 2019-11-28 08:33:00* Test Item Value Reference Range Interpretation Comments Aspartate Amino Transf (AST/SGOT) (test code = Aspartate Amino Transf (AST/SGOT)) 53 5-34 H [facility] CampusAlanine Aminotransferase (ALT/SGPT) 2019-11-28 08:33:00* Test Item Value Reference Range Interpretation Comments Alanine Aminotransferase (ALT/SGPT) (test code = 1742-6) 36 0-55 [facility] CampusTotal Dobhobv9550-52-51 08:33:00* Test Item Value Reference Range Interpretation Comments Total Protein (test code = 2885-2) 9.2 6.5-8.1 H [facility] CampusAlbumin2020-03-21 08:33:00* Test Item Value Reference Range Interpretation Comments Albumin (test code = 1751-7) 3.0 3.5-5.0 L [facility] CampusGlobulin2020-03-21 08:33:00* Test Item Value Reference Range Interpretation Comments Globulin (test code = 90342-4) 6.2 2.3-3.5 H [facility] CampusAlbumin/Globulin Ioroy2370-83-26 08:33:00 * Test Item Value Reference Range Interpretation Comments Albumin/Globulin Ratio (test code = 1759-0) 0.5 0.8-2.0 L [facility] CampusAlkaline Zonfahhgcdl2714-55-57 08:33:00* Test Item Value Reference Range Interpretation Comments Alkaline Phosphatase (test code = 6768-6) 18 40-150 L [facility] CampusNeutrophils (%) (Auto)2019-11-28 07:52:00 * Test Item Value Reference Range Interpretation Comments Neutrophils (%) (Auto) (test code = 89061-4) 49.8 38.7-80.0 [facility] CampusLymphocytes (%) (Auto)2019-11-28 07:52:00 * Test Item Value Reference Range Interpretation Comments Lymphocytes (%) (Auto) (test code = 736-9) 45.3 18.0-39.1 H [facility] CampusMonocytes (%) (Auto)2019-11-28 07:52:00* Test Item Value Reference Range Interpretation Comments Monocytes (%) (Auto) (test code = 5905-5) 4.3 4.4-11.3 L [facility] CampusEosinophils (%) (Auto)2019-11-28 07:52:00 * Test Item Value Reference Range Interpretation Comments Eosinophils (%) (Auto) (test code = 713-8) 0.0 0.0-6.0 [facility] CampusBasophils (%) (Auto)2019-11-28 07:52:00* Test Item Value Reference Range Interpretation Comments Basophils (%) (Auto) (test code = 706-2) 0.3 0.0-1.0 [facility] CampusIM GRANULOCYTES %2019-11-28 07:52:00* Test Item Value Reference Range Interpretation Comments IM GRANULOCYTES % (test code = IM GRANULOCYTES %) 0.3 0.0- 1.0 [facility] CampusNeutrophils # (Auto)2019-11-28 07:52:00* Test Item Value Reference Range Interpretation Comments Neutrophils # (Auto) (test code = 751-8) 1.9 2.1-6.9 L [facility] CampusLymphocytes # (Auto)2019-11-28 07:52:00* Test Item Value Reference Range Interpretation Comments Lymphocytes # (Auto) (test code = 66370-9) 1.7 1.0-3.2 [facility] CampusMonocytes # (Auto)2019-11-28 07:52:00* Test Item Value Reference Range Interpretation Comments Monocytes # (Auto) (test code = 742-7) 0.2 0.2-0.8 [facility] CampusEosinophils # (Auto)2019-11-28 07:52:00* Test Item Value Reference Range Interpretation Comments Eosinophils # (Auto) (test code = 711-2) 0.0 0.0-0.4 [facility] CampusBasophils # (Auto)2019-11-28 07:52:00* Test Item Value Reference Range Interpretation Comments Basophils # (Auto) (test code = 704-7) 0.0 0.0-0.1 [facility] CampusAbsolute Immature Granulocyte (auto 2019-11-28 07:52:00* Test Item Value Reference Range Interpretation Comments Absolute Immature Granulocyte (auto (dana t code = Absolute Immature Granulocyte (auto) 0.01 0-0.1 [facility] Centerodium Ewnvt0788-69-29 07:22:00* Test Item Value Reference Range Interpretation Comments Sodium Level (test code = 2951-2) 133 136-145 L [facility] CampusPotassium Xahch6516-36-87 07:22:00* Test Item Value Reference Range Interpretation Comments Potassium Level (test code = 2823-3) 4.2 3.5-5.1 [facility] CampusChloride Pnxow7878-56-64 07:22:00* Test Item Value Reference Range Interpretation Comments Chloride Level (test code = 2075-0) 104 98-107 [facility] CampusCarbon Dioxide Cvncd9271-27-21 07:22:00* Test Item Value Reference Range Interpretation Comments Carbon Dioxide Level (test code = 2028-9) 24 22-29 [facility] CampusAnion Rdy9086-26-54 07:22:00* Test Item Value Reference Range Interpretation Comments Anion Gap (test code = 89604-8) 9.2 8-16 [facility] CampusBlood Urea Tcopvltb0336-34-32 07:22:00* Test Item Value Reference Range Interpretation Comments Blood Urea Nitrogen (test code = 3094-0) 10 7-26 [facility] CampusCreatinine2020-03-21 07:22:00* Test Item Value Reference Range Interpretation Comments Creatinine (test code = 2160-0) 0.83 0.57-1.11 [facility] CampusBUN/Creatinine Xliud6048-02-30 07:22:00* Test Item Value Reference Range Interpretation Comments BUN/Creatinine Ratio (test code = 3097-3) 12 6-25 [facility] CampusEstimat Glomerular Filtration Rate 2019-11-28 07:22:00* Test Item Value Reference Range Interpretation Comments Estimat Glomerular Filtration Rate (test code = 001086559) > 60 >60 Ranges were taken from the National Kidney Disease Education Program and the [facility] Kidney Foundation literature.Reference ranges:60 or greater: Dafgdy49-01 ( for 3 consecutive months): Chronic kidney disease 15 or less: Kidney failureThe Hospitals of Providence Memorial CampusGlucose Jypez9897-66-50 07:22:00* Test Item Value Reference Range Interpretation Comments Glucose Level (test code = BJO3439) 94 74-118 [facility] CampusCalcium Utlqo5445-10-12 07:22:00* Test Item Value Reference Range Interpretation Comments Calcium Level (test code = 73115-4) 8.2 8.4-10.2 L [facility] CampusHemoglobin A1c Ffiovse4971-72-61 07:22:00 * Test Item Value Reference Range Interpretation Comments Hemoglobin A1c Percent (test code = Hemoglobin A1c Percent) 5.1 4.0-7.0 [facility] CampusMagnesium Jvidy8034-85-54 07:22:00* Test Item Value Reference Range Interpretation Comments Magnesium Level (test code = 08172-8) 2.0 1.3-2.1 [facility] CampusTriglycerides Nwwmg3470-12-97 07:22:00* Test Item Value Reference Range Interpretation Comments Triglycerides Level (test code = 2571-8) 90 0-149 [facility] CampusCholesterol Qwwxg8027-40-16 07:22:00* Test Item Value Reference Range Interpretation Comments Cholesterol Level (test code = 2093-3) 78 0-199 Less than 200 mg/dL Low Aqaq388 - 239 mg/dL Borderline Kfsb593 m g/dl and greater High Risk [facility] CampusLDL Uuqjgwbvize3202-23-98 07:22:00* Test Item Value Reference Range Interpretation Comments LDL Cholesterol (test code = 2089-1) 44 60-130 L [facility] CampusHDL Pzkrazmyzzl4739-79-35 07:22:00* Test Item Value Reference Range Interpretation Comments HDL Cholesterol (test code = 2085-9) 16 40-60 L [facility] CampusCholesterol/HDL Vduss0564-07-41 07:22:00 * Test Item Value Reference Range Interpretation Comments Cholesterol/HDL Ratio (test code = 9830-1) 4.9 3.0-3.6 H [facility] CampusFluoroscopic procedure less than one hour rqiulnwl0363-72-33 06:24:00* Test Item Value Reference Range Interpretation Comments Hemoglobin A1c Percent (test code = Hemoglobin A1c Percent) 5.1 4.0-7.0 [facility] plasma magnesium measurement (mass/volume)2019-11-28 06:24:00* Test Item Value Reference Range Interpretation Comments Magnesium Level (test code = 72490-5) 2.0 1.3-2.1 [facility]ererum or plasma triglyceride measurement (mass/volume)2019-11-28 06:24:00* Test Item Value Reference Range Interpretation Comments Triglycerides Level (test code = 2571-8) 90 0-149 [facility]ererum or plasma cholesterol measurement (mass/volume)2019-11-28 06:24:00* Test Item Value Reference Range Interpretation Comments Cholesterol Level (test code = 2093-3) 78 0-199 Less than 200 mg/dL Low Hiky952 - 239 mg/dL Borderline Ufwt461 m g/dl and greater High Risk [facility]ererum or plasma cholesterol in LDL measurement (mass/volume) 2019-11-28 06:24:00* Test Item Value Reference Range Interpretation Comments LDL Cholesterol (test code = 2089-1) 44 60-130 [facility]ererum or plasma cholesterol in HDL measurement (mass/volume)2019-11-28 06:24:00* Test Item Value Reference Range Interpretation Comments HDL Cholesterol (test code = 2085-9) 16 40-60 [facility]ererum or plasma total cholesterol/cholesterol in HDL mass iaqso2732-29-21 06:24:00* Test Item Value Reference Range Interpretation Comments Cholesterol/HDL Ratio (test code = 9830-1) 4.9 3.0-3.6 [facility] CampusFluoroscopic procedure less than one hour falabhvx3858-37-04 22:17:00* Test Item Value Reference Range Interpretation Comments Chlamydia pneumoniae DNA (PCR) (test code = Chlamydia pneumoniae DNA (PCR)) NOT DETECTED NOT DETECT Test performed at [facility] [place], [place] [address]RESULTS HAVE BEEN CALLED TO THE PHYSICIANCHI [facility] SouthRespiratory virus mzgzh5093-88-70 22:17:00* Test Item Value Reference Range Interpretation Comments Influenza Type A (RT-PCR) (test code = 721533968) NOT DETECTED NOT DETECT [facility] CampusFluoroscopic procedure less than one hour ijqqfyfa3777-53-89 22:17:00* Test Item Value Reference Range Interpretation Comments Mycoplasma pneumoniae (PCR) (test code = Mycoplasma pn eumoniae (PCR)) NOT DETECTED NOT DETECT [facility] CampusRespiratory virus scswn7750-41-53 22:17:00* Test Item Value Reference Range Interpretation Comments Influenza Type B (RT-PCR) (test code = 779512069) NOT DETECTED NOT DETECT [facility] CampusRespiratory virus dlgkc5985-91-04 22:17:00* Test Item Value Reference Range Interpretation Comments Respiratory Syncytial Virus (PCR) (test code = 511962008) NO T DETECTED NOT DETECT [facility] CampusRespiratory virus fevme7832-97-69 22:17:00* Test Item Value Reference Range Interpretation Comments Bordetella pertussis DNA (PCR) (test code = 620205452) NOT DETEC RONA NOT DETECT [facility] CampusRespiratory virus ejefv1315-38-52 22:17:00* Test Item Value Reference Range Interpretation Comments Parainfluenza Type 1 (PCR) (test code = 254138437) NOT DETECTED NOT DETECT [facility] CampusRespiratory virus rfydc6186-80-74 22:17:00* Test Item Value Reference Range Interpretation Comments Parainfluenza Type 2 (PCR) (test code = 418435348) NOT DETECTED NOT DETECT [facility] CampusRespiratory virus amiif7587-53-56 22:17:00* Test Item Value Reference Range Interpretation Comments Parainfluenza Type 3 (PCR) (test code = 095585824) NOT DETECTED NOT DETECT [facility] CampusFluoroscopic procedure less than one hour kavuyfvk0960-97-70 22:17:00* Test Item Value Reference Range Interpretation Comments Parainfluenza Type 4 (PCR) (test code = Parainfluenza Type 4 (PCR)) NOT DETECTED NOT DETECT [facility] CampusRespiratory virus yhoth9126-79-46 22:17:00* Test Item Value Reference Range Interpretation Comments Rhinovirus (PCR) (test code = 724391853) NOT DETECTED NOT DETECT [facility] CampusRespiratory virus ifknq4237-06-19 22:17:00* Test Item Value Reference Range Interpretation Comments Human Metapneumovirus (PCR) (test code = 867869650) DETECTED NO T DETECT ABNORMALCHI [facility] SouthRespiratory virus chzsk8030-13-42 22:17:00* Test Item Value Reference Range Interpretation Comments Adenovirus (PCR) (test code = 932503883) NOT DETECTED NOT DETECT [facility] CampusFluoroscopic procedure less than one hour qsqhhhke2234-53-70 22:17:00* Test Item Value Reference Range Interpretation Comments Coronavirus Type 229E (PCR) (test code = Coronavirus T ype 229E (PCR)) NOT DETECTED NOT DETECT Test performed at [facility] [place] [address]RESULTS HAVE BEEN CALLED TO THE PHYSICIANThe Hospitals of [facility] CampusFluoroscopic procedure less than one hour eepkqccy8879-27-48 22:17:00* Test Item Value Reference Range Interpretation Comments Coronavirus Type HKU1 (PCR) (test code = Coronavirus T ype HKU1 (PCR)) NOT DETECTED NOT DETECT [facility] CampusFluoroscopic procedure less than one hour iplnqarb4850-11-24 22:17:00* Test Item Value Reference Range Interpretation Comments Coronavirus Type NL63 (PCR) (test code = Coronavirus T ype NL63 (PCR)) NOT DETECTED NOT DETECT [facility] CampusFluoroscopic procedure less than one hour orzgddxm1508-76-20 22:17:00* Test Item Value Reference Range Interpretation Comments Coronavirus Type OC43 (PCR) (test code = Coronavirus T ype OC43 (PCR)) NOT DETECTED NOT DETECT [facility] CampusFluoroscopic procedure less than one hour umupvtnw1726-48-03 22:17:00* Test Item Value Reference Range Interpretation Comments Coronavirus (PCR) (test code = Coronavirus (PCR)) NOT DETECTED NOTD ETECTED CORONAVIRUS TITF-UKK-3-RT-PCR (RESPIRATORY)This test has been validated but FDA' s independent review of the validation is pending. This test is performed as a l aboratory developed test; independent review of the validation under FDA's Emerg ency Use Authorization (EUA) authority will be performed according to current [facility] requirements.We will continue to follow federal and state requirements fo r both notification of results and confirmatory testing that is required by [facility] her agency.This test was developed and its performance characteristics determine d by [email or web address]. It has not been cleared or approved by the U.S. Food and Drug Administration. Results should be used in conjunction with clinical finding s, and should not form the sole basis for a diagnosis or treatment decision.Spec imen sent to [facility] and performed at [employer] [facility], [address] [place] [address]. [address]AVBThe Hospitals of [facility] CampusPlatelet Fbtvonin9304-56-79 21:06:00* Test Item Value Reference Range Interpretation Comments Platelet Estimate (test code = 55672-9) ADEQUATE [facility] CampusPlatelet Morphology Ohwalwp4538-92-10 21:06:00* Test Item Value Reference Range Interpretation Comments Platelet Morphology Comment (test code = 24834-5) NORMAL [facility] CampusHypochromasia2020-03-20 21:06:00* Test Item Value Reference Range Interpretation Comments Hypochromasia (test code = 728-6) SLIGHT [facility] CampusAnisocytosis2020-03-20 21:06:00* Test Item Value Reference Range Interpretation Comments Anisocytosis (test code = 702-1) SLIGHT [facility] CampusRed Cell Morphology Gvfodis8370-77-61 21:06:00* Test Item Value Reference Range Interpretation Comments Red Cell Morphology Comment (test code = 6742-1) NORMAL [facility] CampusCT CHEST J2215-92-05 20:40:[address] [address] Patient Name: CHRISTINE OTTO MR #: [id number] : 1990 Age/Sex: 29/F Req #: [id number] Adm Physician: Ordered by: ERIC KWAN NP Report #: [id number] Location: ER Room/Bed: Procedure: CT/CT CHEST W Exam Date: 11/27/19 Exam Time: 2004 REPORT STATUS: Signed EXAM : CT Chest WITH contrast 11/27/2019 6:11 PM INDICATION: Fever, cough, dyspnea COMPARISON: Chest x-ray, 11/24/2019 TECHNIQUE: Chest was scanned utilizing a multidetector helical scanner from the lung apex through the level of the di aphragm after administration of IV contrast. Thin section reconstructions were obtained with special concentration on the pulmonary arteries. Coronal and sa gittal reformations were obtained. Pulmonary embolism protocol was performed. Dose modulation, iterative reconstruction, and/or weight based adjustment o f the mA/kV was utilized to reduce the radiation dose to as low as reasonably achievable IV CONTRAST: 100 cc Isovue-370 RADIATI ON DOSE: Total DLP: 528.33 mGy*cm Estimated effective dose: (DLP x 0.014 x size factor) mSv COMPLICATIONS: None FINDINGS: E xamination is somewhat compromised by motion artifact and tissue attenuation a rtifact. LINES/ TUBES: None. LUNGS AND AIRWAYS: No filling defect is i dentified within the pulmonary arteries to the segmental level. There are wid espread groundglass and tree-in-bud opacities in the upper and lower lobes mona aterally, with dense consolidation seen in the medial right lower lobe and in the lingula. In some areas the opacities appear nodular, measuring 0.6 cm in t he right upper lobe (2/51), 1.0 cm in the right lower lobe (2/72), and 1.0 cm in the left upper lobe (2/49) trachea and main bronchi are clear. PLEURA : There is trace right pleural effusion. No pneumothorax. HEART AND MEDIAST INUM: The thyroid gland is normal. There are mildly prominent hilar node s measuring 0.8 cm on the left and 1.3 cm on the right. There is extensive axi llary lymphadenopathy with nodes on the right measuring 2.8 and 1.9 cm short a xis, and nodes on the left measuring 1.9 and 2.3 cm with additional slightly s maller nodes present bilaterally. The heart is normal in size.. There is no pe ricardial effusion. The thoracic aorta is unremarkable. Ascending aorta measu res 2.8 cm, normal. Main pulmonary artery measures 3.1 cm, borderline dilated. UPPER ABDOMEN: Included portions of the liver unremarkable. There is borde rline splenomegaly with span 14.4 cm. Included portions of the pancreas, adren als and kidneys show no focal pathology. BONES: No acute or suspicious ragini ny lesions. SOFT TISSUES: Superficial surrounding soft tissue unremarkable. IMPRESSION: 1. There are extensive bilateral airspace opacities, inc luding groundglass opacities, tree-in-bud opacities, nodular opacities and are as of consolidation which are most prominent in the lingula and medial right l ower lobe. Findings are most suggestive of severe multifocal pneumonia, possib ly atypical viral pneumonia or opportunistic infection. Nodularity and masslik e consolidation surrounding the right hilum raises the question of underlying malignancy. 2. There is prominent bilateral axillary lymphadenopathy. There are mildly prominent nodes in both maria teresa. There is trace right pleural effusio n. Staff: Carmen Signed by: Dr. Lasha Morales M.D. on 11/27/2019 9:0 1 PM Dictated By: LASHA MORALES MD 00 Transcribed By: IONA on 11/27/192100 COPY TO: ERIC KWAN NP Lactic Acid Onhxv2337-37-31 20:37:00* Test Item Value Reference Range Interpretation Comments Lactic Acid Level (test code = Lactic Acid Level) 0.7 0.5- 2.0 [facility] CampusGroup A Streptococcus Wpsdou5110-39-50 20:28:00* Test Item Value Reference Range Interpretation Comments Group A Streptococcus Screen (test code = 31923-8) NEGATIVE NEG ATIVE [facility]reptococcus pyogenes antigen detection in pszltc6601-03-72 20:10:00* Test Item Value Reference Range Interpretation Comments Group A Streptococcus Screen (test code = 34924-4) NEGATIVE NEG ATIVE [facility] CampusFluoroscopic procedure less than one hour alxkxxpg6506-38-17 19:37:00* Test Item Value Reference Range Interpretation Comments Lactic Acid Level (test code = Lactic Acid Level) 0.7 0.5- 2.0 [facility] CampusHuman Chorionic Gonadotropin, Qual 2019-11-27 19:22:00* Test Item Value Reference Range Interpretation Comments Human Chorionic Gonadotropin, Qual (test code = 2118-8) NEGATIVE NEGATIVE [facility] CampusTroponin O9661-65-99 19:19:00* Test Item Value Reference Range Interpretation Comments Troponin I (test code = NLY4477) 0.034 0-0.300 [facility] CampusB-Type Natriuretic Ajogysg0818-33-92 19:18:00* Test Item Value Reference Range Interpretation Comments B-Type Natriuretic Peptide (test code = 16696-5) 14.3 0-100 [facility] CampusBlood jnlwfhr8105-91-23 18:27:00* Test Item Value Reference Range Interpretation Comments Blood Culture (test code = 87519920) NO GROWTH AFTER 5 DAYS, FINAL REPORT [facility] CampusBlood platelets count by estimate (number/volume)2019-11-27 18:26:00* Test Item Value Reference Range Interpretation Comments Platelet Estimate (test code = 50224-3) ADEQUATE [facility] CampusPlatelet yafsamgwze3936-78-55 18:26:00* Test Item Value Reference Range Interpretation Comments Platelet Morphology Comment (test code = 04518-4) NORMAL [facility] CampusBlworthington medical center hypochromia detection by light ofrpvffrgm2719-60-96 18:26:00* Test Item Value Reference Range Interpretation Comments Hypochromasia (test code = 728-6) SLIGHT [facility] anisocytosis detection by light ohqwrfozok1657-86-91 18:26:00* Test Item Value Reference Range Interpretation Comments Anisocytosis (test code = 702-1) SLIGHT [facility] CampusRBC zpbsetxwor5066-88-59 18:26:00* Test Item Value Reference Range Interpretation Comments Red Cell Morphology Comment (test code = 6742-1) NORMAL [facility] CampusBNP Zio-jBgf3265-23-20 18:26:00* Test Item Value Reference Range Interpretation Comments B-Type Natriuretic Peptide (test code = 64737-1) 14.3 0-100 [facility] CampusTroponin I measurement by highly sensitive enzyme twojcgnsfsh5624-88-35 18:26:00* Test Item Value Reference Range Interpretation Comments Troponin I (test code = 16475-2) 0.034 0-0.300 [facility] Centererum or plasma choriogonadotropin ( test) xqnenpwxm6424-16-72 18:26:00* Test Item Value Reference Range Interpretation Comments Human Chorionic Gonadotropin, Qual (test code = 2118-8) NEGATIVE NEGATIVE [facility] CampusCHEST SINGLE (NOT PORTABLE)2019-11-24 22:14:00 [facility] [address] [place] [address] Patient Name: CHRISTINE OTTO MR #: [id number] : 1990 Age/Sex: 29/F Req #: [id number] Adm Physician: Ordered by: JONO RICH MD Report #: [id number] Location: ER Room/Bed: Procedur e: 2953-1025 DX/CHEST SINGLE (NOT PORTABLE) Exam Date: 11/24/19 Exam Time: 2139 REPORT STATUS: Signed EXAMINATION: CHEST SINGLE (NOT PORTABLE) INDICATION: Fever and cough. COMPARISON: 11/23/2019. FINDINGS: TUBES and L RONALDO: None. LUNGS: Lungs are well inflated. Mild perihilar, peribronchia l thickening and perihilar streaky densities may reflect viral infection versu s reactive airway disease. Increased mild patchy density in the lung bases, left greater than right. Mild prominence of the pulmonary vasculature bilatera lly. PLEURA: No pleural effusion or pneumothorax. HEART AND MEDIASTIN UM: The cardiac silhouette is mildly enlarged. BONES AND SOFT TISSUES: No acute osseous lesion. Soft tissues are unremarkable. UPPER ABDOMEN: No free air under the diaphragm. IMPRESSION: Mild viral infection versu s reactive airway disease. Focal patchy density in the left lung base may repr esent atelectasis versus developing pneumonia in the proper clinical setting. Signed by: Dr. Maddy Jack M.D. on 11/24/2019 10:16 PM D ictated By: ABISAI JACK MD, MD 15 Transcribed By: IONA on 11/24/192215 COPY TO: JONO PABLO MD Influenza Virus Types A,B Zlvatbw3692-00-68 21:50:00* Test Item Value Reference Range Interpretation Comments Influenza Virus Types A,B Antigen (test code = 51464-3) NEGATIVE NEGATIVE [facility] CampusGroup A Streptococcus Rsiqxm4072-14-36 21:43:00* Test Item Value Reference Range Interpretation Comments Group A Streptococcus Screen (test code = 66257-5) NEGATIVE NEG ATIVE [facility] CampusUrine PQW0054-99-07 21:27:00* Test Item Value Reference Range Interpretation Comments Urine WBC (test code = 5821-4) NONE 0-5 [facility] CampusUrine CGC0641-34-09 21:27:00* Test Item Value Reference Range Interpretation Comments Urine RBC (test code = 43768-0) NONE 0-5 [facility] CampusUrine Ccsoyztr7445-53-40 21:27:00* Test Item Value Reference Range Interpretation Comments Urine Bacteria (test code = 25712-4) RARE NONE [facility] CampusUrine Epithelial Ipwap2692-14-78 21:27:00 * Test Item Value Reference Range Interpretation Comments Urine Epithelial Cells (test code = 69534-4) MODERATE NONE [facility] CampusUrine ENI8308-97-78 21:27:00* Test Item Value Reference Range Interpretation Comments Urine WBC (test code = 5821-4) NONE 0-5 [facility] CampusUrine OEF2848-56-78 21:27:00* Test Item Value Reference Range Interpretation Comments Urine RBC (test code = 49638-8) NONE 0-5 [facility] Pmhwoisk1066-23-61 21:27:00* Test Item Value Reference Range Interpretation Comments Urine Bacteria (test code = 70500-4) RARE NONE [facility] CampusUrine Epithelial Aucpm7429-75-58 21:27:00 * Test Item Value Reference Range Interpretation Comments Urine Epithelial Cells (test code = 17085-1) MODERATE NONE [facility] CampusUrine CJN6050-59-79 21:27:00* Test Item Value Reference Range Interpretation Comments Urine WBC (test code = 5821-4) NONE 0-5 [facility] CampusUrine YVJ6898-15-62 21:27:00* Test Item Value Reference Range Interpretation Comments Urine RBC (test code = 51991-1) NONE 0-5 [facility] CampusUrine Fguwluye2557-53-54 21:27:00* Test Item Value Reference Range Interpretation Comments Urine Bacteria (test code = 03545-8) RARE NONE [facility] CampusUrine Epithelial Alhgq1401-26-32 21:27:00 * Test Item Value Reference Range Interpretation Comments Urine Epithelial Cells (test code = 73609-6) MODERATE NONE [facility] CampusUrine Bbhpq0356-35-37 21:21:00* Test Item Value Reference Range Interpretation Comments Urine Color (test code = 5778-6) YELLOW YELLOW [facility] CampusUrine Laiibwn6304-33-03 21:21:00* Test Item Value Reference Range Interpretation Comments Urine Clarity (test code = 08945-9) SL CLOUDY CLEAR [facility] CampusUrine Specific Btlotvs1967-76-00 21:21:00 * Test Item Value Reference Range Interpretation Comments Urine Specific [place] (test code = 5811-5) 1.025 1.010-1.02 5 [facility] CampusUrine wU0546-56-14 21:21:00* Test Item Value Reference Range Interpretation Comments Urine pH (test code = 56678-6) 6.5 5-7 [facility] CampusUrine Leukocyte Ehlzsnbz8125-59-02 21:21:00* Test Item Value Reference Range Interpretation Comments Urine Leukocyte Esterase (test code = 5799-2) NEGATIVE NEGATIVE [facility] CampusUrine Opwfobf6702-17-85 21:21:00* Test Item Value Reference Range Interpretation Comments Urine Nitrite (test code = 53364-8) NEGATIVE NEGATIVE [facility] CampusUrine Bpkjqpy4841-36-94 21:21:00* Test Item Value Reference Range Interpretation Comments Urine Protein (test code = 5804-0) 1+ NEGATIVE H [facility] CampusUrine Glucose (UA)2019-11-23 21:21:00* Test Item Value Reference Range Interpretation Comments Urine Glucose (UA) (test code = 2349-9) NEGATIVE NEGATIVE [facility] Iymrrmt2655-86-29 21:21:00* Test Item Value Reference Range Interpretation Comments Urine Ketones (test code = 08356-5) NEGATIVE NEGATIVE [facility] Mrsahjsowgdv0079-05-20 21:21:00* Test Item Value Reference Range Interpretation Comments Urine Urobilinogen (test code = 56763-0) 1 0.2-1 [facility] Jnfnoontx6985-53-44 21:21:00* Test Item Value Reference Range Interpretation Comments Urine Bilirubin (test code = 1978-6) NEGATIVE NEGATIVE [facility] Vacck4208-80-31 21:21:00* Test Item Value Reference Range Interpretation Comments Urine Blood (test code = 94060-4) NEGATIVE NEGATIVE [facility] Sptse7477-66-52 21:21:00* Test Item Value Reference Range Interpretation Comments Urine Color (test code = 5778-6) YELLOW YELLOW [facility] Swvbqhc4953-52-84 21:21:00* Test Item Value Reference Range Interpretation Comments Urine Clarity (test code = 54059-7) SL CLOUDY CLEAR [facility] Specific Vstaiwf6042-90-49 21:21:00 * Test Item Value Reference Range Interpretation Comments Urine Specific [place] (test code = 5811-5) 1.025 1.010-1.02 5 [facility] uG4651-00-82 21:21:00* Test Item Value Reference Range Interpretation Comments Urine pH (test code = 48036-8) 6.5 5-7 [facility] Leukocyte Leukowqo7097-78-11 21:21:00* Test Item Value Reference Range Interpretation Comments Urine Leukocyte Esterase (test code = 5799-2) NEGATIVE NEGATIVE [facility] Emzhbzf5274-73-45 21:21:00* Test Item Value Reference Range Interpretation Comments Urine Nitrite (test code = 07007-7) NEGATIVE NEGATIVE [facility] Rscqfmu1709-50-75 21:21:00* Test Item Value Reference Range Interpretation Comments Urine Protein (test code = 5804-0) 1+ NEGATIVE H [facility] Glucose (UA)2019-11-23 21:21:00* Test Item Value Reference Range Interpretation Comments Urine Glucose (UA) (test code = 2349-9) NEGATIVE NEGATIVE [facility] Ukujfpt8078-41-30 21:21:00* Test Item Value Reference Range Interpretation Comments Urine Ketones (test code = 27972-0) NEGATIVE NEGATIVE [facility] Ecxjhxdybkiz0520-41-25 21:21:00* Test Item Value Reference Range Interpretation Comments Urine Urobilinogen (test code = 81584-9) 1 0.2-1 [facility] Stxfkejjy3368-00-84 21:21:00* Test Item Value Reference Range Interpretation Comments Urine Bilirubin (test code = 1978-6) NEGATIVE NEGATIVE [facility] Wwgpw0999-79-88 21:21:00* Test Item Value Reference Range Interpretation Comments Urine Blood (test code = 41791-8) NEGATIVE NEGATIVE [facility] Qnvtm9042-51-06 21:21:00* Test Item Value Reference Range Interpretation Comments Urine Color (test code = 5778-6) YELLOW YELLOW [facility] Nxpocep3001-66-38 21:21:00* Test Item Value Reference Range Interpretation Comments Urine Clarity (test code = 22466-1) SL CLOUDY CLEAR [facility] Specific Roubhkw1701-61-17 21:21:00 * Test Item Value Reference Range Interpretation Comments Urine Specific [place] (test code = 5811-5) 1.025 1.010-1.02 5 [facility] oE1088-57-25 21:21:00* Test Item Value Reference Range Interpretation Comments Urine pH (test code = 61720-0) 6.5 5-7 [facility] Leukocyte Koewfqcl8232-17-89 21:21:00* Test Item Value Reference Range Interpretation Comments Urine Leukocyte Esterase (test code = 5799-2) NEGATIVE NEGATIVE [facility] Zxshaon8488-66-71 21:21:00* Test Item Value Reference Range Interpretation Comments Urine Nitrite (test code = 27222-1) NEGATIVE NEGATIVE [facility] Tifstbq3032-65-90 21:21:00* Test Item Value Reference Range Interpretation Comments Urine Protein (test code = 5804-0) 1+ NEGATIVE H [facility] Glucose (UA)2019-11-23 21:21:00* Test Item Value Reference Range Interpretation Comments Urine Glucose (UA) (test code = 2349-9) NEGATIVE NEGATIVE [facility] Kxggblm8296-66-73 21:21:00* Test Item Value Reference Range Interpretation Comments Urine Ketones (test code = 22778-6) NEGATIVE NEGATIVE [facility] Rjhbjoqffoxi1979-19-60 21:21:00* Test Item Value Reference Range Interpretation Comments Urine Urobilinogen (test code = 97806-8) 1 0.2-1 [facility] Ajnvxbccp9976-27-66 21:21:00* Test Item Value Reference Range Interpretation Comments Urine Bilirubin (test code = 1978-6) NEGATIVE NEGATIVE [facility] Axmwx6328-93-13 21:21:00* Test Item Value Reference Range Interpretation Comments Urine Blood (test code = 46128-1) NEGATIVE NEGATIVE [facility] CampusCreatine Hwvjpp6702-79-60 21:07:00* Test Item Value Reference Range Interpretation Comments Creatine Kinase (test code = 2157-6) 397 29-168 H [facility] CampusCreatine Fheert7419-00-45 21:07:00* Test Item Value Reference Range Interpretation Comments Creatine Kinase (test code = 2157-6) 397 29-168 H [facility] CampusCreatine Hzgivn0508-30-91 21:07:00* Test Item Value Reference Range Interpretation Comments Creatine Kinase (test code = 2157-6) 397 29-168 H [facility] CampusUrine color ytenfrcnlcpxi1769-58-84 21:05:00* Test Item Value Reference Range Interpretation Comments Urine Color (test code = 5778-6) YELLOW YELLOW [facility] fzjdiof2085-21-40 21:05:00* Test Item Value Reference Range Interpretation Comments Urine Clarity (test code = 72660-1) SL CLOUDY CLEAR [facility] by Test strip 2019-11-23 21:05:00* Test Item Value Reference Range Interpretation Comments Urine Specific [place] (test code = 5811-5) 1.025 1.010-1.02 5 [facility] pH measurement by automated test vimhv8777-69-10 21:05:00* Test Item Value Reference Range Interpretation Comments Urine pH (test code = 45248-3) 6.5 5-7 [facility] leukocyte esterase detection by tcfxqizf0374-47-71 21:05:00* Test Item Value Reference Range Interpretation Comments Urine Leukocyte Esterase (test code = 5799-2) NEGATIVE NEGATIVE [facility] CampusUrine nitrite tbuezrjmc4907-98-24 21:05:00* Test Item Value Reference Range Interpretation Comments Urine Nitrite (test code = 30690-1) NEGATIVE NEGATIVE [facility] CampusUrine protein measurement by test strip (mass/volume)2019-11-23 21:05:00* Test Item Value Reference Range Interpretation Comments Urine Protein (test code = 5804-0) 1+ NEGATIVE [facility] CampusU[facility] glucose jemjacexr8626-09-45 21:05:00* Test Item Value Reference Range Interpretation Comments Urine Glucose (UA) (test code = 2349-9) NEGATIVE NEGATIVE [facility] CampusUrine ketones detection by automated test ejzvs5792-59-91 21:05:00* Test Item Value Reference Range Interpretation Comments Urine Ketones (test code = 05166-1) NEGATIVE NEGATIVE [facility] CampusUrine urobilinogen measurement by test strip (mass/volume)2019-11-23 21:05:00* Test Item Value Reference Range Interpretation Comments Urine Urobilinogen (test code = 49626-8) 1 0.2-1 [facility] CampusU[facility] total bilirubin measurement (mass/volume)2019-11-23 21:05:00* Test Item Value Reference Range Interpretation Comments Urine Bilirubin (test code = 1978-6) NEGATIVE NEGATIVE [facility] CampusU[facility] erythrocytes biaavruls9198-13-49 21:05:00* Test Item Value Reference Range Interpretation Comments Urine Blood (test code = 08744-8) NEGATIVE NEGATIVE [facility] CampusAutomated urine sediment leukocyte count by microscopy (number/high power field)2019-11-23 21:05:00* Test Item Value Reference Range Interpretation Comments Urine WBC (test code = 5821-4) NONE 0-5 [facility] CampusErythrocytes detection in urine sediment by light jizatooqqk9999-72-19 21:05:00* Test Item Value Reference Range Interpretation Comments Urine RBC (test code = 89860-2) NONE 0-5 [facility] CampusBacteria detection in urine sediment by light kfmhuyqahd1601-78-18 21:05:00* Test Item Value Reference Range Interpretation Comments Urine Bacteria (test code = 58829-8) RARE NONE [facility] CampusEpithelial cells detection in urine sediment by light xlpjvujivu9126-48-14 21:05:00* Test Item Value Reference Range Interpretation Comments Urine Epithelial Cells (test code = 52131-2) MODERATE NONE [facility] CampusHuman Chorionic Gonadotropin, Qual 2019-11-23 20:55:00* Test Item Value Reference Range Interpretation Comments Human Chorionic Gonadotropin, Qual (test code = 2118-8) NEGATIVE NEGATIVE [facility] Chorionic Gonadotropin, Qual 2019-11-23 20:55:00* Test Item Value Reference Range Interpretation Comments Human Chorionic Gonadotropin, Qual (test code = 2118-8) NEGATIVE NEGATIVE [facility] CampusInfluenza Virus Types A,B Antigen 2019-11-23 20:33:00* Test Item Value Reference Range Interpretation Comments Influenza Virus Types A,B Antigen (test code = 89448-0) NEGATIVE NEGATIVE [facility] CampusCreatine Kinase KL2283-88-45 20:31:00* Test Item Value Reference Range Interpretation Comments Creatine Kinase MB (test code = 27549-1) 4.20 0-5.0 [facility] CampusTroponin [id number] 20:31:00* Test Item Value Reference Range Interpretation Comments Troponin I (test code = BZT8297) 0.039 0-0.300 [facility] CampusCreatine Kinase BG0183-04-01 20:31:00* Test Item Value Reference Range Interpretation Comments Creatine Kinase MB (test code = 30932-2) 4.20 0-5.0 [facility] CampusTrunity medical centernin Q0919-25-44 20:31:00* Test Item Value Reference Range Interpretation Comments Troponin I (test code = NXI4265) 0.039 0-0.300 [facility] CampusCreatine Kinase KG7088-61-31 20:31:00* Test Item Value Reference Range Interpretation Comments Creatine Kinase MB (test code = 72785-7) 4.20 0-5.0 [facility] CampusGroup A Streptococcus Rwlvnt5910-74-75 20:24:00* Test Item Value Reference Range Interpretation Comments Group A Streptococcus Screen (test code = 40575-6) NEGATIVE NEG ATIVE [facility] Centerodium Kcblb1932-65-83 20:22:00* Test Item Value Reference Range Interpretation Comments Sodium Level (test code = 2951-2) 132 136-145 L [facility] CampusPotassium Zbnwn6250-14-42 20:22:00* Test Item Value Reference Range Interpretation Comments Potassium Level (test code = 2823-3) 3.9 3.5-5.1 [facility] CampusChloride Uxavt0581-28-72 20:22:00* Test Item Value Reference Range Interpretation Comments Chloride Level (test code = 2075-0) 100 98-107 [facility] CampusCarbon Dioxide Kjtdd2809-56-57 20:22:00* Test Item Value Reference Range Interpretation Comments Carbon Dioxide Level (test code = 2028-9) 28 22-29 [facility] CampusAnion Zny0592-29-43 20:22:00* Test Item Value Reference Range Interpretation Comments Anion Gap (test code = 40438-9) 7.9 8-16 L [facility] CampusBlood Urea Vqqccwwa5894-72-71 20:22:00* Test Item Value Reference Range Interpretation Comments Blood Urea Nitrogen (test code = 3094-0) 12 7-26 [facility] CampusCreatinine2020-03-16 20:22:00* Test Item Value Reference Range Interpretation Comments Creatinine (test code = 2160-0) 1.06 0.57-1.11 [facility] CampusBUN/Creatinine Wvriz1950-60-35 20:22:00* Test Item Value Reference Range Interpretation Comments BUN/Creatinine Ratio (test code = 3097-3) 11 6-25 [facility] CampusEstimat Glomerular Filtration Rate 2019-11-23 20:22:00* Test Item Value Reference Range Interpretation Comments Estimat Glomerular Filtration Rate (test code = 696568139) > 60 >60 Ranges were taken from the National Kidney Disease Education Program and the [facility] literature.Reference ranges:60 or greater: Rswfya17-85 ( for 3 consecutive months): Chronic kidney disease 15 or less: Kidney failureThe Hospitals of Providence Memorial CampusGlucose Dbxmi1898-36-96 20:22:00* Test Item Value Reference Range Interpretation Comments Glucose Level (test code = UYC9510) 97 74-118 [facility] CampusCalcium Sizel9123-06-09 20:22:00* Test Item Value Reference Range Interpretation Comments Calcium Level (test code = 41067-2) 8.8 8.4-10.2 [facility] Centerodium Xfkdx8558-23-42 20:22:00* Test Item Value Reference Range Interpretation Comments Sodium Level (test code = 2951-2) 132 136-145 L [facility] CampusPotassium Znnqh7379-62-73 20:22:00* Test Item Value Reference Range Interpretation Comments Potassium Level (test code = 2823-3) 3.9 3.5-5.1 [facility] CampusChloride Lkhbp7116-82-17 20:22:00* Test Item Value Reference Range Interpretation Comments Chloride Level (test code = 2075-0) 100 98-107 [facility] CampusCarbon Dioxide Dunom9596-36-52 20:22:00* Test Item Value Reference Range Interpretation Comments Carbon Dioxide Level (test code = 2028-9) 28 22-29 [facility] CampusAnion Uio4207-79-97 20:22:00* Test Item Value Reference Range Interpretation Comments Anion Gap (test code = 95215-1) 7.9 8-16 L [facility] CampusBlood Urea Ohpconul4762-48-77 20:22:00* Test Item Value Reference Range Interpretation Comments Blood Urea Nitrogen (test code = 3094-0) 12 7-26 [facility] CampusCreatinine2020-03-16 20:22:00* Test Item Value Reference Range Interpretation Comments Creatinine (test code = 2160-0) 1.06 0.57-1.11 [facility] CampusBUN/Creatinine Zawrl8095-92-50 20:22:00* Test Item Value Reference Range Interpretation Comments BUN/Creatinine Ratio (test code = 3097-3) 11 6-25 [facility] CampusEstimat Glomerular Filtration Rate 2019-11-23 20:22:00* Test Item Value Reference Range Interpretation Comments Estimat Glomerular Filtration Rate (test code = 460299753) > 60 >60 Ranges were taken from the National Kidney Disease Education Program and the [facility] Kidney Foundation literature.Reference ranges:60 or greater: Qxohxe37-99 ( for 3 consecutive months): Chronic kidney disease 15 or less: Kidney failureThe Hospitals of Providence Memorial CampusGlucose Atqrx4960-79-53 20:22:00* Test Item Value Reference Range Interpretation Comments Glucose Level (test code = HJR5796) 97 74-118 [facility] CampusCalcium Hhgvn4003-77-45 20:22:00* Test Item Value Reference Range Interpretation Comments Calcium Level (test code = 08092-8) 8.8 8.4-10.2 [facility] CampusProthrombin Unjl2708-02-46 20:19:00* Test Item Value Reference Range Interpretation Comments Prothrombin Time (test code = 5902-2) 13.6 11.9-14.5 [facility] CampusProthromb Time International Ratio 2019-11-23 20:19:00* Test Item Value Reference Range Interpretation Comments Prothromb Time International Ratio (test code = 6301-6) 0.98 Oral Anticoagulant Therapy INR Values:1. Low Intensity Therapy 1.5 - 2.02 . Moderate Intensity Therapy 2.0 - 3.03. High Intensity Therapy(1) 2.5 - 3. 54. High Intensity Therapy(2) 3.0 - 4.05. Panic Value INR > 5.0 [facility] CampusActivated Partial Thromboplast Time 2019-11-23 20:19:00* Test Item Value Reference Range Interpretation Comments Activated Partial Thromboplast Time (test code = 16637-6) 27.9 23.8-35.5 [facility] CampusProthrombin Mmim7532-52-73 20:19:00* Test Item Value Reference Range Interpretation Comments Prothrombin Time (test code = 5902-2) 13.6 11.9-14.5 [facility] CampusProthromb Time International Ratio 2019-11-23 20:19:00* Test Item Value Reference Range Interpretation Comments Prothromb Time International Ratio (test code = 6301-6) 0.98 Oral Anticoagulant Therapy INR Values:1. Low Intensity Therapy 1.5 - 2.02 . Moderate Intensity Therapy 2.0 - 3.03. High Intensity Therapy(1) 2.5 - 3. 54. High Intensity Therapy(2) 3.0 - 4.05. Panic Value INR > 5.0 [facility] CampusActivated Partial Thromboplast Time 2019-11-23 20:19:00* Test Item Value Reference Range Interpretation Comments Activated Partial Thromboplast Time (test code = 87293-3) 27.9 23.8-35.5 [facility] CampusProthrombin Wgta7904-26-97 20:19:00* Test Item Value Reference Range Interpretation Comments Prothrombin Time (test code = 5902-2) 13.6 11.9-14.5 [facility] CampusProthromb Time International Ratio 2019-11-23 20:19:00* Test Item Value Reference Range Interpretation Comments Prothromb Time International Ratio (test code = 6301-6) 0.98 Oral Anticoagulant Therapy INR Values:1. Low Intensity Therapy 1.5 - 2.02 . Moderate Intensity Therapy 2.0 - 3.03. High Intensity Therapy(1) 2.5 - 3. 54. High Intensity Therapy(2) 3.0 - 4.05. Panic Value INR > 5.0 [facility] CampusActivated Partial Thromboplast Time 2019-11-23 20:19:00* Test Item Value Reference Range Interpretation Comments Activated Partial Thromboplast Time (test code = 65382-7) 27.9 23.8-35.5 [facility] CampusWhite Blood Jofpb7392-05-51 20:08:00* Test Item Value Reference Range Interpretation Comments White Blood Count (test code = 6690-2) 6.24 4.8-10.8 [facility] CampusRed Blood Grsyy3415-65-63 20:08:00* Test Item Value Reference Range Interpretation Comments Red Blood Count (test code = 789-8) 3.43 3.6-5.1 L [facility] CampusHemoglobin2020-03-16 20:08:00* Test Item Value Reference Range Interpretation Comments Hemoglobin (test code = 00459-6) 10.3 12.0-16.0 L [facility] CampusHematocrit2020-03-16 20:08:00* Test Item Value Reference Range Interpretation Comments Hematocrit (test code = 4544-3) 31.4 34.2-44.1 L [facility] CampusMean Corpuscular Zyropj5650-64-46 20:08:00* Test Item Value Reference Range Interpretation Comments Mean Corpuscular Volume (test code = 787-2) 91.5 81-99 [facility] CampusMean Corpuscular Iatqpsfndk8694-73-81 20:08:00* Test Item Value Reference Range Interpretation Comments Mean Corpuscular Hemoglobin (test code = 785-6) 30.0 28-32 [facility] CampusMean Corpuscular Hemoglobin Concent 2019-11-23 20:08:00* Test Item Value Reference Range Interpretation Comments Mean Corpuscular Hemoglobin Concent (test code = 786-4) 32.8 31-35 [facility] CampusRed Cell Distribution Uyrbv4482-59-29 20:08:00* Test Item Value Reference Range Interpretation Comments Red Cell Distribution Width (test code = 03478-7) 13.6 11.7 -14.4 [facility] CampusPlatelet Ngfwu4696-56-71 20:08:00* Test Item Value Reference Range Interpretation Comments Platelet Count (test code = 777-3) 196 140-360 [facility] CampusNeutrophils (%) (Auto)2019-11-23 20:08:00 * Test Item Value Reference Range Interpretation Comments Neutrophils (%) (Auto) (test code = 02337-1) 81.3 38.7-80.0 H [facility] CampusLymphocytes (%) (Auto)2019-11-23 20:08:00 * Test Item Value Reference Range Interpretation Comments Lymphocytes (%) (Auto) (test code = 736-9) 13.8 18.0-39.1 L [facility] CampusMonocytes (%) (Auto)2019-11-23 20:08:00* Test Item Value Reference Range Interpretation Comments Monocytes (%) (Auto) (test code = 5905-5) 4.2 4.4-11.3 L [facility] CampusEosinophils (%) (Auto)2019-11-23 20:08:00 * Test Item Value Reference Range Interpretation Comments Eosinophils (%) (Auto) (test code = 713-8) 0.2 0.0-6.0 [facility] CampusBasophils (%) (Auto)2019-11-23 20:08:00* Test Item Value Reference Range Interpretation Comments Basophils (%) (Auto) (test code = 706-2) 0.2 0.0-1.0 [facility] CampusIM GRANULOCYTES %2019-11-23 20:08:00* Test Item Value Reference Range Interpretation Comments IM GRANULOCYTES % (test code = IM GRANULOCYTES %) 0.3 0.0- 1.0 [facility] CampusNeutrophils # (Auto)2019-11-23 20:08:00* Test Item Value Reference Range Interpretation Comments Neutrophils # (Auto) (test code = 751-8) 5.1 2.1-6.9 [facility] CampusLymphocytes # (Auto)2019-11-23 20:08:00* Test Item Value Reference Range Interpretation Comments Lymphocytes # (Auto) (test code = 89328-6) 0.9 1.0-3.2 L [facility] CampusMonocytes # (Auto)2019-11-23 20:08:00* Test Item Value Reference Range Interpretation Comments Monocytes # (Auto) (test code = 742-7) 0.3 0.2-0.8 [facility] CampusEosinophils # (Auto)2019-11-23 20:08:00* Test Item Value Reference Range Interpretation Comments Eosinophils # (Auto) (test code = 711-2) 0.0 0.0-0.4 [facility] CampusBasophils # (Auto)2019-11-23 20:08:00* Test Item Value Reference Range Interpretation Comments Basophils # (Auto) (test code = 704-7) 0.0 0.0-0.1 [facility] CampusAbsolute Immature Granulocyte (auto 2019-11-23 20:08:00* Test Item Value Reference Range Interpretation Comments Absolute Immature Granulocyte (auto (dana t code = Absolute Immature Granulocyte (auto) 0.02 0-0.1 [facility] CampusWhite Blood Bkeyn5009-41-56 20:08:00* Test Item Value Reference Range Interpretation Comments White Blood Count (test code = 6690-2) 6.24 4.8-10.8 [facility] CampusRed Blood Aeuyr9505-86-99 20:08:00* Test Item Value Reference Range Interpretation Comments Red Blood Count (test code = 789-8) 3.43 3.6-5.1 L [facility] CampusHemoglobin2020-03-16 20:08:00* Test Item Value Reference Range Interpretation Comments Hemoglobin (test code = 81380-0) 10.3 12.0-16.0 L [facility] CampusHematocrit2020-03-16 20:08:00* Test Item Value Reference Range Interpretation Comments Hematocrit (test code = 4544-3) 31.4 34.2-44.1 L [facility] CampusMean Corpuscular Yxbkhw8192-95-67 20:08:00* Test Item Value Reference Range Interpretation Comments Mean Corpuscular Volume (test code = 787-2) 91.5 81-99 [facility] CampusMean Corpuscular Reglrpofxz0605-37-92 20:08:00* Test Item Value Reference Range Interpretation Comments Mean Corpuscular Hemoglobin (test code = 785-6) 30.0 28-32 [facility] CampusMean Corpuscular Hemoglobin Concent 2019-11-23 20:08:00* Test Item Value Reference Range Interpretation Comments Mean Corpuscular Hemoglobin Concent (test code = 786-4) 32.8 31-35 [facility] CampusRed Cell Distribution Mmxds1691-16-78 20:08:00* Test Item Value Reference Range Interpretation Comments Red Cell Distribution Width (test code = 32558-6) 13.6 11.7 -14.4 [facility] [facility] Shtdi0958-02-70 20:08:00* Test Item Value Reference Range Interpretation Comments Platelet Count (test code = 777-3) 196 140-360 [facility] CampusNeutrophils (%) (Auto)2019-11-23 20:08:00 * Test Item Value Reference Range Interpretation Comments Neutrophils (%) (Auto) (test code = 38471-4) 81.3 38.7-80.0 H [facility] CampusLymphocytes (%) (Auto)2019-11-23 20:08:00 * Test Item Value Reference Range Interpretation Comments Lymphocytes (%) (Auto) (test code = 736-9) 13.8 18.0-39.1 L [facility] CampusMonocytes (%) (Auto)2019-11-23 20:08:00* Test Item Value Reference Range Interpretation Comments Monocytes (%) (Auto) (test code = 5905-5) 4.2 4.4-11.3 L [facility] CampusEosinophils (%) (Auto)2019-11-23 20:08:00 * Test Item Value Reference Range Interpretation Comments Eosinophils (%) (Auto) (test code = 713-8) 0.2 0.0-6.0 [facility] CampusBasophils (%) (Auto)2019-11-23 20:08:00* Test Item Value Reference Range Interpretation Comments Basophils (%) (Auto) (test code = 706-2) 0.2 0.0-1.0 [facility] CampusIM GRANULOCYTES %2019-11-23 20:08:00* Test Item Value Reference Range Interpretation Comments IM GRANULOCYTES % (test code = IM GRANULOCYTES %) 0.3 0.0- 1.0 [facility] CampusNeutrophils # (Auto)2019-11-23 20:08:00* Test Item Value Reference Range Interpretation Comments Neutrophils # (Auto) (test code = 751-8) 5.1 2.1-6.9 [facility] CampusLymphocytes # (Auto)2019-11-23 20:08:00* Test Item Value Reference Range Interpretation Comments Lymphocytes # (Auto) (test code = 48555-7) 0.9 1.0-3.2 L [facility] CampusMonocytes # (Auto)2019-11-23 20:08:00* Test Item Value Reference Range Interpretation Comments Monocytes # (Auto) (test code = 742-7) 0.3 0.2-0.8 [facility] CampusEosinophils # (Auto)2019-11-23 20:08:00* Test Item Value Reference Range Interpretation Comments Eosinophils # (Auto) (test code = 711-2) 0.0 0.0-0.4 [facility] CampusBasophils # (Auto)2019-11-23 20:08:00* Test Item Value Reference Range Interpretation Comments Basophils # (Auto) (test code = 704-7) 0.0 0.0-0.1 [facility] CampusAbsolute Immature Granulocyte (auto 2019-11-23 20:08:00* Test Item Value Reference Range Interpretation Comments Absolute Immature Granulocyte (auto (dana t code = Absolute Immature Granulocyte (auto) 0.02 0-0.1 [facility] CampusProthrombin time (PT) in platelet poor plasma by coagulation cvoyv0259-11-67 19:45:00* Test Item Value Reference Range Interpretation Comments Prothrombin Time (test code = 5902-2) 13.6 11.9-14.5 [facility] CampusINR in Platelet poor plasma by Coagulation ruxgm6416-37-21 19:45:00* Test Item Value Reference Range Interpretation Comments Prothromb Time International Ratio (test code = 6301-6) 0.98 Oral Anticoagulant Therapy INR Values:1. Low Intensity Therapy 1.5 - 2.02 . Moderate Intensity Therapy 2.0 - 3.03. High Intensity Therapy(1) 2.5 - 3. 54. High Intensity Therapy(2) 3.0 - 4.05. Panic Value INR > 5.0 [facility] CampusActivated partial thromboplastin time (aPTT) in platelet poor plasma by coagulation loocw6915-47-96 19:45:00* Test Item Value Reference Range Interpretation Comments Activated Partial Thromboplast Time (test code = 90560-4) 27.9 23.8-35.5 [facility] plasma creatine kinase measurement (enzymatic activity/volume)2019-11-23 19:45:00* Test Item Value Reference Range Interpretation Comments Creatine Kinase (test code = 2157-6) 397 29168 [facility] Centererum or plasma creatine kinase MB measurement (mass/volume)2019-11-23 19:45:00* Test Item Value Reference Range Interpretation Comments Creatine Kinase MB (test code = 59044-3) 4.20 0-5.0 [facility] CampusCHEST SINGLE (PORTABLE)2019-11-23 19:00:00 [facility] [address] [place] [address] Patient Name: CHRISTINE OTTO MR #: [id number] : 1990 Age/Sex: 29/F Req #: [id number] Adm Physician: Ordered by: CHI CARRASCO ENROLLMENT ADVISOR Report #: [id number] Location: ER Room/Bed: Procedure: [id number] DX/CHEST SINGLE (PORTABLE) Exam Date: 11/23/19 Exam Time: 1850 REPORT STATUS: Signed Examination: Single AP view of the chest. COMPARISON: None. INDICATIO N: Chest tightness DISCUSSION: Lines/tubes: None. Lungs: T he lungs are well inflated and clear. No pneumonia or pulmonary edema. Pleu ra: No pleural effusion or pneumothorax. Heart and mediastinum: The heart and the mediastinum are unremarkable. Bones and soft tissues: No acute ragini [place] abnormalities. IMPRESSION: 1. No acute cardiopulmonary abnorma lities. Signed by: Dr. Nida Kessler M.D. on 11/23/2019 7:01 PM Dic tated By: NIDA KESSLER MD 00 Transcribed By: IONA on 11/23/191900 COPY TO: CHI CARRASCO NP Blood Wzfrldb8905-68-21 09:05:00* Test Item Value Reference Range Interpretation Comments Blood Culture (test code = 43873964) NO GROWTH AFTER 5 DAYS, FINAL REPORT [facility] CampusBlood Izlduhu4233-66-27 09:05:00* Test Item Value Reference Range Interpretation Comments Blood Culture (test code = 36729782) NO GROWTH AFTER 5 DAYS, FINAL REPORT [facility] CampusBlood Ziuxlxh2627-05-31 09:05:00* Test Item Value Reference Range Interpretation Comments Blood Culture (test code = 99573197) NO GROWTH AFTER 48 HOURS [facility] CampusOvalocytes2019-11-14 12:40:00* Test Item Value Reference Range Interpretation Comments Ovalocytes (test code = 774-0) FEW [facility] CampusOvalocytes2019-11-14 12:40:00* Test Item Value Reference Range Interpretation Comments Ovalocytes (test code = 774-0) FEW [facility] CampusOvalocytes2019-11-14 12:40:00* Test Item Value Reference Range Interpretation Comments Ovalocytes (test code = 774-0) FEW [facility] CampusOvalocytes2019-11-14 12:40:00* Test Item Value Reference Range Interpretation Comments Ovalocytes (test code = 774-0) FEW [facility] CampusDifferential Total Cells Counted 2019-07-23 12:28:00* Test Item Value Reference Range Interpretation Comments Differential Total Cells Counted (test code = Differen tial Total Cells Counted) 100 [facility] CampusNeutrophils % (Manual)2019-07-23 12:28:00 * Test Item Value Reference Range Interpretation Comments Neutrophils % (Manual) (test code = 41828-4) 74 40-74 [facility] CampusLymphocytes % (Manual)2019-07-23 12:28:00 * Test Item Value Reference Range Interpretation Comments Lymphocytes % (Manual) (test code = 737-7) 19 19-48 [facility] CampusMonocytes % (Manual)2019-07-23 12:28:00* Test Item Value Reference Range Interpretation Comments Monocytes % (Manual) (test code = 744-3) 7 3.4-9.0 [facility] CampusPlatelet Pnqtwegl5941-65-07 12:28:00* Test Item Value Reference Range Interpretation Comments Platelet Estimate (test code = 80322-6) ADEQUATE [facility] CampusPlatelet Morphology Hlpikvx9728-18-17 12:28:00* Test Item Value Reference Range Interpretation Comments Platelet Morphology Comment (test code = 89515-5) NORMAL [facility] CampusPoikilocytosis2019-11-14 12:28:00* Test Item Value Reference Range Interpretation Comments Poikilocytosis (test code = 779-9) SLIGHT [facility] CampusAnisocytosis2019-11-14 12:28:00* Test Item Value Reference Range Interpretation Comments Anisocytosis (test code = 702-1) SLIGHT [facility] CampusRed Cell Morphology Raajwkt9859-58-69 12:28:00* Test Item Value Reference Range Interpretation Comments Red Cell Morphology Comment (test code = 6742-1) NORMAL [facility] CampusDifferential Total Cells Counted 2019-07-23 12:28:00* Test Item Value Reference Range Interpretation Comments Differential Total Cells Counted (test code = Differbrigid tial Total Cells Counted) 100 [facility] CampusNeutrophils % (Manual)2019-07-23 12:28:00 * Test Item Value Reference Range Interpretation Comments Neutrophils % (Manual) (test code = 30444-8) 74 40-74 [facility] CampusLymphocytes % (Manual)2019-07-23 12:28:00 * Test Item Value Reference Range Interpretation Comments Lymphocytes % (Manual) (test code = 737-7) 19 19-48 [facility] CampusMonocytes % (Manual)2019-07-23 12:28:00* Test Item Value Reference Range Interpretation Comments Monocytes % (Manual) (test code = 744-3) 7 3.4-9.0 [facility] CampusPlatelet Xwfmwffr4419-88-94 12:28:00* Test Item Value Reference Range Interpretation Comments Platelet Estimate (test code = 50357-8) ADEQUATE [facility] CampusPlatelet Morphology Flhxhbm3145-60-32 12:28:00* Test Item Value Reference Range Interpretation Comments Platelet Morphology Comment (test code = 20830-6) NORMAL [facility] CampusPoikilocytosis2019-11-14 12:28:00* Test Item Value Reference Range Interpretation Comments Poikilocytosis (test code = 779-9) SLIGHT [facility] CampusAnisocytosis2019-11-14 12:28:00* Test Item Value Reference Range Interpretation Comments Anisocytosis (test code = 702-1) SLIGHT [facility] CampusRed Cell Morphology Cqouuop6404-55-62 12:28:00* Test Item Value Reference Range Interpretation Comments Red Cell Morphology Comment (test code = 6742-1) NORMAL [facility] CampusDifferential Total Cells Counted 2019-07-23 12:28:00* Test Item Value Reference Range Interpretation Comments Differential Total Cells Counted (test code = Differbrigid tial Total Cells Counted) 100 [facility] CampusNeutrophils % (Manual)2019-07-23 12:28:00 * Test Item Value Reference Range Interpretation Comments Neutrophils % (Manual) (test code = 11766-2) 74 40-74 [facility] CampusLymphocytes % (Manual)2019-07-23 12:28:00 * Test Item Value Reference Range Interpretation Comments Lymphocytes % (Manual) (test code = 737-7) 19 19-48 [facility] CampusMonocytes % (Manual)2019-07-23 12:28:00* Test Item Value Reference Range Interpretation Comments Monocytes % (Manual) (test code = 744-3) 7 3.4-9.0 [facility] CampusPlatelet Kkvqyycf7062-76-80 12:28:00* Test Item Value Reference Range Interpretation Comments Platelet Estimate (test code = 33074-7) ADEQUATE [facility] CampusPlatelet Morphology Fmcmyln0823-12-98 12:28:00* Test Item Value Reference Range Interpretation Comments Platelet Morphology Comment (test code = 20325-7) NORMAL [facility] CampusPoikilocytosis2019-11-14 12:28:00* Test Item Value Reference Range Interpretation Comments Poikilocytosis (test code = 779-9) SLIGHT [facility] CampusAnisocytosis2019-11-14 12:28:00* Test Item Value Reference Range Interpretation Comments Anisocytosis (test code = 702-1) SLIGHT [facility] CampusRed Cell Morphology Paluvih7184-69-72 12:28:00* Test Item Value Reference Range Interpretation Comments Red Cell Morphology Comment (test code = 6742-1) NORMAL [facility] CampusPoikilocytosis2019-11-14 12:28:00* Test Item Value Reference Range Interpretation Comments Poikilocytosis (test code = 779-9) SLIGHT [facility] CampusUrine OWP4829-73-61 11:33:00* Test Item Value Reference Range Interpretation Comments Urine WBC (test code = 5821-4) 6-10 0-5 H [facility] CampusUrine WCF5989-13-48 11:33:00* Test Item Value Reference Range Interpretation Comments Urine RBC (test code = 62212-1) 0-5 0-5 [facility] CampusUrine Wnjspkck3478-30-14 11:33:00* Test Item Value Reference Range Interpretation Comments Urine Bacteria (test code = 45063-6) MANY NONE H [facility] CampusUrine Epithelial Emfdq4721-57-95 11:33:00 * Test Item Value Reference Range Interpretation Comments Urine Epithelial Cells (test code = 58737-0) MODERATE NONE [facility] CampusUrine Ttdkn0588-42-36 11:29:00* Test Item Value Reference Range Interpretation Comments Urine Color (test code = 5778-6) YELLOW YELLOW [facility] CampusUrine Wdbropm3533-33-59 11:29:00* Test Item Value Reference Range Interpretation Comments Urine Clarity (test code = 22276-9) SL CLOUDY CLEAR [facility] CampusUrine Specific Czfnggl9956-02-21 11:29:00 * Test Item Value Reference Range Interpretation Comments Urine Specific [place] (test code = 5811-5) >=1.030 1.010-1.02 5 [facility] CampusUrine dR2886-36-55 11:29:00* Test Item Value Reference Range Interpretation Comments Urine pH (test code = 74740-6) 6 5-7 [facility] CampusUrine Leukocyte Sldhhjnf8580-23-51 11:29:00* Test Item Value Reference Range Interpretation Comments Urine Leukocyte Esterase (test code = 43926-4) NEGATIVE NEGATIV E [facility] CampusUrine Gjewucg8223-22-13 11:29:00* Test Item Value Reference Range Interpretation Comments Urine Nitrite (test code = 68457-8) NEGATIVE NEGATIVE [facility] Mhpbjki5626-26-19 11:29:00* Test Item Value Reference Range Interpretation Comments Urine Protein (test code = 33475-3) NEGATIVE NEGATIVE [facility] Glucose (UA)2019-07-23 11:29:00* Test Item Value Reference Range Interpretation Comments Urine Glucose (UA) (test code = 03904-8) NEGATIVE NEGATIVE [facility] CampusUrine Vjjilbx9290-52-31 11:29:00* Test Item Value Reference Range Interpretation Comments Urine Ketones (test code = 02263-9) NEGATIVE NEGATIVE [facility] Vlgaedtuxjbb1039-66-35 11:29:00* Test Item Value Reference Range Interpretation Comments Urine Urobilinogen (test code = 20200-2) 1 0.2-1 [facility] CampusUrine Iirgcqxci3876-13-71 11:29:00* Test Item Value Reference Range Interpretation Comments Urine Bilirubin (test code = 1977-8) NEGATIVE NEGATIVE [facility] Tvonh3131-56-89 11:29:00* Test Item Value Reference Range Interpretation Comments Urine Blood (test code = 43679-5) NEGATIVE NEGATIVE [facility] CampusHemoglobin A1c Qxldagb3599-74-09 11:28:00 * Test Item Value Reference Range Interpretation Comments Hemoglobin A1c Percent (test code = Hemoglobin A1c Percent) 5.1 4.0-7.0 [facility] CampusHemoglobin A1c Onjhykq5337-69-42 11:28:00 * Test Item Value Reference Range Interpretation Comments Hemoglobin A1c Percent (test code = Hemoglobin A1c Percent) 5.1 4.0-7.0 [facility] CampusHemoglobin A1c Seleqdx6072-55-06 11:28:00 * Test Item Value Reference Range Interpretation Comments Hemoglobin A1c Percent (test code = Hemoglobin A1c Percent) 5.1 4.0-7.0 [facility] CampusTriglycerides Knsiv1684-16-27 08:29:00* Test Item Value Reference Range Interpretation Comments Triglycerides Level (test code = 2571-8) 118 0-149 [facility] CampusCholesterol Nuvba2857-47-54 08:29:00* Test Item Value Reference Range Interpretation Comments Cholesterol Level (test code = 2093-3) 102 0-199 Less than 200 mg/dL Low Cjoh466 - 239 mg/dL Borderline Llni115 m g/dl and greater High Risk [facility] CampusLDL Rmroexofrcl5832-20-91 08:29:00* Test Item Value Reference Range Interpretation Comments LDL Cholesterol (test code = 2089-1) 56 60-130 L [facility] CampusHDL Dlurxjgpolo5845-51-86 08:29:00* Test Item Value Reference Range Interpretation Comments HDL Cholesterol (test code = 2085-9) 22 40-60 L [facility] CampusCholesterol/HDL Klana4691-61-24 08:29:00 * Test Item Value Reference Range Interpretation Comments Cholesterol/HDL Ratio (test code = 9830-1) 4.6 3.0-3.6 H [facility] CampusTriglycerides Hzccx2787-96-35 08:29:00* Test Item Value Reference Range Interpretation Comments Triglycerides Level (test code = 2571-8) 118 0-149 [facility] CampusCholesterol Zkiuk5720-50-41 08:29:00* Test Item Value Reference Range Interpretation Comments Cholesterol Level (test code = 2093-3) 102 0-199 Less than 200 mg/dL Low Wkwh924 - 239 mg/dL Borderline Pgue087 m g/dl and greater High Risk [facility] CampusLDL Ctphdzxyvaw5658-20-71 08:29:00* Test Item Value Reference Range Interpretation Comments LDL Cholesterol (test code = 2089-1) 56 60-[address] [facility]L Gycztothbyr0184-60-25 08:29:00* Test Item Value Reference Range Interpretation Comments HDL Cholesterol (test code = 2085-9) 22 40-60 L [facility] CampusCholesterol/HDL Btxbs7139-63-35 08:29:00 * Test Item Value Reference Range Interpretation Comments Cholesterol/HDL Ratio (test code = 9830-1) 4.6 3.0-3.6 H [facility] CampusTriglycerides Fdcez1180-40-20 08:29:00* Test Item Value Reference Range Interpretation Comments Triglycerides Level (test code = 2571-8) 118 0-149 [facility] CampusCholesterol Oriso3434-52-49 08:29:00* Test Item Value Reference Range Interpretation Comments Cholesterol Level (test code = 2093-3) 102 0-199 Less than 200 mg/dL Low Dwsk658 - 239 mg/dL Borderline Twuy848 m g/dl and greater High Risk [facility] CampusLDL Xwkvhaeomgt9620-74-11 08:29:00* Test Item Value Reference Range Interpretation Comments LDL Cholesterol (test code = 2089-1) 56 60-130 L [facility] Qolmbgihjhx0939-10-66 08:29:00* Test Item Value Reference Range Interpretation Comments HDL Cholesterol (test code = 2085-9) 22 40-60 L [facility] CampusCholesterol/HDL Qifgi6417-43-66 08:29:00 * Test Item Value Reference Range Interpretation Comments Cholesterol/HDL Ratio (test code = 9830-1) 4.6 3.0-3.6 H [facility] Centerodium Aycgm0259-62-54 06:07:00* Test Item Value Reference Range Interpretation Comments Sodium Level (test code = 2951-2) 135 136-145 L [facility] CampusPotassium Dfpic6973-17-01 06:07:00* Test Item Value Reference Range Interpretation Comments Potassium Level (test code = 2823-3) 3.6 3.5-5.1 [facility] CampusChloride Zpcuj6420-95-52 06:07:00* Test Item Value Reference Range Interpretation Comments Chloride Level (test code = 2075-0) 104 98-107 [facility] CampusCarbon Dioxide Cbujw4485-86-23 06:07:00* Test Item Value Reference Range Interpretation Comments Carbon Dioxide Level (test code = 2028-9) 25 22-29 [facility] CampusAnion Pgq5005-10-06 06:07:00* Test Item Value Reference Range Interpretation Comments Anion Gap (test code = 23684-2) 9.6 8-16 [facility] CampusBlood Urea Zenjdztv5302-25-97 06:07:00* Test Item Value Reference Range Interpretation Comments Blood Urea Nitrogen (test code = 3094-0) 11 7-26 [facility] CampusCreatinine2019-11-14 06:07:00* Test Item Value Reference Range Interpretation Comments Creatinine (test code = 2160-0) 1.01 0.57-1.11 [facility] CampusBUN/Creatinine Faova4059-03-89 06:07:00* Test Item Value Reference Range Interpretation Comments BUN/Creatinine Ratio (test code = 3097-3) 11 6-25 [facility] CampusEstimat Glomerular Filtration Rate 2019-07-23 06:07:00* Test Item Value Reference Range Interpretation Comments Estimat Glomerular Filtration Rate (test code = 514168087) > 60 >60 Ranges were taken from the National Kidney Disease Education Program and the [employer] [facility] [employer] literature.Reference ranges:60 or greater: Jllbef19-34 ( for 3 consecutive months): Chronic kidney disease 15 or less: Kidney failureThe Hospitals of [facility] CampusGlucose Dphhg3158-46-60 06:07:00* Test Item Value Reference Range Interpretation Comments Glucose Level (test code = OPJ9532) 82 74-118 [facility] CampusCalcium Pftey9047-27-36 06:07:00* Test Item Value Reference Range Interpretation Comments Calcium Level (test code = 67404-6) 8.8 8.4-10.2 [facility] Thlledeby3348-90-28 06:07:00* Test Item Value Reference Range Interpretation Comments Total Bilirubin (test code = 1975-2) 0.7 0.2-1.2 [facility] CampusAspartate Amino Transf (AST/SGOT) 2019-07-23 06:07:00* Test Item Value Reference Range Interpretation Comments Aspartate Amino Transf (AST/SGOT) (test code = Aspartate Amino Transf (AST/SGOT)) 20 5-34 [facility] CampusAlanine Aminotransferase (ALT/SGPT) 2019-07-23 06:07:00* Test Item Value Reference Range Interpretation Comments Alanine Aminotransferase (ALT/SGPT) (test code = 1742-6) 11 0-55 [facility] Wnbqmdl1186-90-08 06:07:00* Test Item Value Reference Range Interpretation Comments Total Protein (test code = 2885-2) 8.1 6.5-8.1 [facility] CampusAlbumin2019-11-14 06:07:00* Test Item Value Reference Range Interpretation Comments Albumin (test code = 1751-7) 3.0 3.5-5.0 L [facility] CampusGlobulin2019-11-14 06:07:00* Test Item Value Reference Range Interpretation Comments Globulin (test code = 84697-8) 5.1 2.3-3.5 H [facility] CampusAlbumin/Globulin Svdnv5396-24-80 06:07:00 * Test Item Value Reference Range Interpretation Comments Albumin/Globulin Ratio (test code = 1759-0) 0.6 0.8-2.0 L [facility] CampusAlkaline Pkspgubowrt5708-97-70 06:07:00* Test Item Value Reference Range Interpretation Comments Alkaline Phosphatase (test code = 6768-6) 16 40-150 L [facility] Ataesthry4027-69-51 06:07:00* Test Item Value Reference Range Interpretation Comments Total Bilirubin (test code = 1975-2) 0.7 0.2-1.2 [facility] CampusAspartate Amino Transf (AST/SGOT) 2019-07-23 06:07:00* Test Item Value Reference Range Interpretation Comments Aspartate Amino Transf (AST/SGOT) (test code = Aspartate Amino Transf (AST/SGOT)) 20 534 [facility] CampusAlanine Aminotransferase (ALT/SGPT) 2019-07-23 06:07:00* Test Item Value Reference Range Interpretation Comments Alanine Aminotransferase (ALT/SGPT) (test code = 1742-6) 11 0-55 [facility] CampusTotal Ixthwiw7461-57-53 06:07:00* Test Item Value Reference Range Interpretation Comments Total Protein (test code = 2885-2) 8.1 6.5-8.1 [facility] CampusAlbumin2019-11-14 06:07:00* Test Item Value Reference Range Interpretation Comments Albumin (test code = 1751-7) 3.0 3.5-5.0 L [facility] CampusGlobulin2019-11-14 06:07:00* Test Item Value Reference Range Interpretation Comments Globulin (test code = 93665-1) 5.1 2.3-3.5 H [facility] CampusAlbumin/Globulin Btmql4496-06-87 06:07:00 * Test Item Value Reference Range Interpretation Comments Albumin/Globulin Ratio (test code = 1759-0) 0.6 0.8-2.0 L [facility] CampusAlkaline Tlcuybvypzd5092-76-84 06:07:00* Test Item Value Reference Range Interpretation Comments Alkaline Phosphatase (test code = 6768-6) 16 40-150 L [facility] CampusTotal Pepkvxogu0925-04-63 06:07:00* Test Item Value Reference Range Interpretation Comments Total Bilirubin (test code = 1975-2) 0.7 0.2-1.2 [facility] CampusAspartate Amino Transf (AST/SGOT) 2019-07-23 06:07:00* Test Item Value Reference Range Interpretation Comments Aspartate Amino Transf (AST/SGOT) (test code = Aspartate Amino Transf (AST/SGOT)) 20 34 [facility] CampusAlanine Aminotransferase (ALT/SGPT) 2019-07-23 06:07:00* Test Item Value Reference Range Interpretation Comments Alanine Aminotransferase (ALT/SGPT) (test code = 1742-6) 11 0-55 [facility] CampusTotal Josrajq5540-78-50 06:07:00* Test Item Value Reference Range Interpretation Comments Total Protein (test code = 2885-2) 8.1 6.5-8.1 [facility] CampusAlbumin2019-11-14 06:07:00* Test Item Value Reference Range Interpretation Comments Albumin (test code = 1751-7) 3.0 3.5-5.0 L [facility] CampusGlobulin2019-11-14 06:07:00* Test Item Value Reference Range Interpretation Comments Globulin (test code = 26553-5) 5.1 2.3-3.5 H [facility] CampusAlbumin/Globulin Yuhfg6291-60-54 06:07:00 * Test Item Value Reference Range Interpretation Comments Albumin/Globulin Ratio (test code = 1759-0) 0.6 0.8-2.0 L [facility] CampusAlkaline Uimztocvtjj2771-83-39 06:07:00* Test Item Value Reference Range Interpretation Comments Alkaline Phosphatase (test code = 6768-6) 16 40-150 L [facility] CampusWhite Blood Rgpwc3684-19-77 05:39:00* Test Item Value Reference Range Interpretation Comments White Blood Count (test code = 6690-2) 3.41 4.8-10.8 L [facility] CampusRed Blood Debhj9311-43-35 05:39:00* Test Item Value Reference Range Interpretation Comments Red Blood Count (test code = 789-8) 3.30 3.6-5.1 L [facility] CampusHemoglobin2019-11-14 05:39:00* Test Item Value Reference Range Interpretation Comments Hemoglobin (test code = 14526-6) 10.0 12.0-16.0 L [facility] CampusHematocrit2019-11-14 05:39:00* Test Item Value Reference Range Interpretation Comments Hematocrit (test code = 4544-3) 30.6 34.2-44.1 L [facility] CampusMean Corpuscular Wsvdhf4951-68-29 05:39:00* Test Item Value Reference Range Interpretation Comments Mean Corpuscular Volume (test code = 787-2) 92.7 81-99 [facility] CampusMean Corpuscular Wucyovfvam4137-11-28 05:39:00* Test Item Value Reference Range Interpretation Comments Mean Corpuscular Hemoglobin (test code = 785-6) 30.3 28-32 [facility] CampusMean Corpuscular Hemoglobin Concent 2019-07-23 05:39:00* Test Item Value Reference Range Interpretation Comments Mean Corpuscular Hemoglobin Concent (test code = 786-4) 32.7 31-35 [facility] CampusRed Cell Distribution Xsdij2449-72-84 05:39:00* Test Item Value Reference Range Interpretation Comments Red Cell Distribution Width (test code = 31214-7) 13.4 11.7 -14.4 [facility] CampusPlatelet Goyhd9297-12-92 05:39:00* Test Item Value Reference Range Interpretation Comments Platelet Count (test code = 777-3) 153 140-360 [facility] CampusNeutrophils (%) (Auto)2019-07-23 05:39:00 * Test Item Value Reference Range Interpretation Comments Neutrophils (%) (Auto) (test code = 06759-6) 50.4 38.7-80.0 [facility] CampusLymphocytes (%) (Auto)2019-07-23 05:39:00 * Test Item Value Reference Range Interpretation Comments Lymphocytes (%) (Auto) (test code = 736-9) 39.0 18.0-39.1 [facility] CampusMonocytes (%) (Auto)2019-07-23 05:39:00* Test Item Value Reference Range Interpretation Comments Monocytes (%) (Auto) (test code = 5905-5) 10.3 4.4-11.3 [facility] CampusEosinophils (%) (Auto)2019-07-23 05:39:00 * Test Item Value Reference Range Interpretation Comments Eosinophils (%) (Auto) (test code = 713-8) 0.0 0.0-6.0 [facility] CampusBasophils (%) (Auto)2019-07-23 05:39:00* Test Item Value Reference Range Interpretation Comments Basophils (%) (Auto) (test code = 706-2) 0.3 0.0-1.0 [facility] CampusIM GRANULOCYTES %2019-07-23 05:39:00* Test Item Value Reference Range Interpretation Comments IM GRANULOCYTES % (test code = IM GRANULOCYTES %) 0.0 0.0- 1.0 [facility] CampusNeutrophils # (Auto)2019-07-23 05:39:00* Test Item Value Reference Range Interpretation Comments Neutrophils # (Auto) (test code = 751-8) 1.7 2.1-6.9 L [facility] CampusLymphocytes # (Auto)2019-07-23 05:39:00* Test Item Value Reference Range Interpretation Comments Lymphocytes # (Auto) (test code = 22260-2) 1.3 1.0-3.2 [facility] CampusMonocytes # (Auto)2019-07-23 05:39:00* Test Item Value Reference Range Interpretation Comments Monocytes # (Auto) (test code = 742-7) 0.4 0.2-0.8 [facility] CampusEosinophils # (Auto)2019-07-23 05:39:00* Test Item Value Reference Range Interpretation Comments Eosinophils # (Auto) (test code = 711-2) 0.0 0.0-0.4 [facility] CampusBasophils # (Auto)2019-07-23 05:39:00* Test Item Value Reference Range Interpretation Comments Basophils # (Auto) (test code = 704-7) 0.0 0.0-0.1 [facility] CampusAbsolute Immature Granulocyte (auto 2019-07-23 05:39:00* Test Item Value Reference Range Interpretation Comments Absolute Immature Granulocyte (auto (dana t code = Absolute Immature Granulocyte (auto) 0 0-0.1 [facility] CampusBlood poikilocytosis detection by light yvmxiepcpd4398-59-03 04:25:00* Test Item Value Reference Range Interpretation Comments Poikilocytosis (test code = 779-9) SLIGHT [facility] CampusBlood ovalocytes detection by light bltnakqcxk7966-17-05 04:25:00* Test Item Value Reference Range Interpretation Comments Ovalocytes (test code = 774-0) FEW [facility] CampusProthrombin Qxhl4515-47-56 11:30:00* Test Item Value Reference Range Interpretation Comments Prothrombin Time (test code = 5902-2) 13.9 11.9-14.5 [facility] CampusProthromb Time International Ratio 2019-07-22 11:30:00* Test Item Value Reference Range Interpretation Comments Prothromb Time International Ratio (test code = 6301-6) 1.02 Oral Anticoagulant Therapy INR Values:1. Low Intensity Therapy 1.5 - 2.02 . Moderate Intensity Therapy 2.0 - 3.03. High Intensity Therapy(1) 2.5 - 3. 54. High Intensity Therapy(2) 3.0 - 4.05. Panic Value INR > 5.0 [facility] CampusActivated Partial Thromboplast Time 2019-07-22 11:30:00* Test Item Value Reference Range Interpretation Comments Activated Partial Thromboplast Time (test code = 82929-2) 28.9 23.8-35.5 [facility] CampusCT ABDOMEN/PELVIS Z9055-57-30 11:14:00 [facility] [address] [place] [address] Patient Name: CHRISTINE OTTO MR #: [id number] : [birth year] Age/Sex: 28/F Req #: [id number] Adm Physician: Ordered by: JOSE MANUEL COBURN MD Report #: [id number] Location: ER Room/Bed: Procedure: [id number] CT/ CT ABDOMEN/PELVIS W Exam Date: 07/22/19 Exam Time: 1 040 REPORT STATUS: Signed EXAM: CT Abdomen and Pelvis WITH intravenous contrast INDICATION: Pelvic pain COMPARISON: Pelvic ultrasound of earlier the same day. TECHNIQUE: Abdom en and pelvis were scanned utilizing a multidetector helical scanner from the lung base to the pubic symphysis after administration of IV contrast. Coronal and sagittal reformations were obtained. Routine protocol was performed. Scan was performed during portal venous phase. IV CONTRAST: 100mL of Isovue 370 ORAL CONTRAST: Water RADIATION DOSE: Total DLP: 876.9 mGy*cm Dose modulation, iterative reconstruction, and/or weight based adjustment of the mA/kV was utilized to reduce the radiation dose to as low as reasonably ac hievable. FINDINGS: LOWER THORAX: Normal. HEPATOBILIARY: No focal h epatic lesions. No biliary ductal dilatation. The gallbladder appears unremar kable. SPLEEN: No splenomegaly. PANCREAS: No focal masses or ductal di latation. ADRENALS: No adrenal nodules. KIDNEYS/URETERS: No hydronephrosi s, stones, or solid mass lesions. PELVIC ORGANS/BLADDER: The left ovary is enl arged, measuring up to 5.9 cm maximum diameter, and appears hypoenhancing. PERITONEUM / RETROPERITONEUM: Small volume free fluid in the pelvis. LYMPH N ODES: Bilateral enlarged inguinal lymph nodes measure up to 1.5 cm short axis. Left pelvic sidewall lymph nodes measure up to 1.5 cm short axis. VESSELS: Un remarkable. GI TRACT: No abnormal bowel wall thickening. No bowel obstructi on. Diverticulosis without CT evidence of diverticulitis. Normal appendix. BONES AND SOFT TISSUES: No acute osseous injury. No suspicious lytic or blasti c lesions. IMPRESSION: Enlarged hypoenhancing left ovary measuring up to 5.9 cm. This supports the findings of pelvic ultrasound of earlier the same day which are concerning for left ovarian torsion. Small volume free fluid in the pelvis. Bilateral inguinal lymphadenopathy and left pelvic sidewall ly mphadenopathy, likely reactive. Signed by: Jenn Ibarra MD on 9 11:21 AM Dictated By: JENN IBARRA MD 20 Transcribed By: IONA on 07/22/191120 COPY TO: JOSE MANUEL COBURN MD US YSHXFWGSCWCX5952-91-77 10:26:00 [place] [address] Patient Name: CHRISTINE OTTO MR #: [id number] : 1990 Age/Sex: 28/F Req #: [id number] Adm Physician: Ordered by: JOSE MANUEL COBURN MD Report #: [id number] Location: ER Room/Bed: Procedure: [id number] US/ US TRANSVAGINAL Exam Date: 07/22/19 Exam Time: 0943 REPORT STATUS: Signed Exam: P elvic ultrasound. History: Lower abdominal pain, pelvic pain Comparis on: <None.> Findings: Transabdominal and endovaginal sonographic evaluation of the pelvis. The uterus is anteverted in position, measuring 11.3 x 6.1 x 6.9cm. No uterine mass. Endometrial stripe thickness is 4 millimeters. The right ovary measures 3.8 x 2.1 x 1.8 cm and appears unremarkable. Normal arterial and venous waveform. The left ovary is enlarged, measuring 4.9 x 3.8 x 3.5 cm. There is coarse left ovarian echotexture and no discernible arterial waveform. Peripheral 3.2 x 2.1 x 3.7 cm hypoechoic area within the ovary, possibly reflecting peripheral displacement of follicles. Multiple small subcentimeter nabothian cysts in the cervix. Small volume free fluid in the pelvis. Impression: Enlarged left ovary with coarse echotexture, no discernible arterial waveform and possible peripheral displacement of follicles is concerning for left ovarian torsion. Small volume free fluid in the pelvis. Normal right ovary. Normal uterus. The above critical findings were discussed with Dr. Coburn on 07/22/2019 10:26 AM, who responded indicating that the communication was understood. Signed by: Jenn Ibarra MD on 07/22/2019 10:40 AM Dictated By: JENN IBARRA MD 104 Transcribed By: IONA on 07/22/19 1040 COPY TO: JOSE MANUEL COBURN MD US PELVIC DOPPLER [id number] 10:26:00 [place] [address] Patient Name: CHRISTINE OTTO MR #: [id number] : 1990 Age/Sex: 28/F Req #: [id number] Adm Physician: Ordered by: JOSE MANUEL COBURN MD Report #: [id number] Location: ER Room/Bed: Procedure: [id number] US/ US PELVIC DOPPLER LTD Exam Date: 07/22/19 Exam Time: 0943 REPORT STATUS: Signed E xam: Pelvic ultrasound. History: Lower abdominal pain, pelvic pain Co mparison: <None.> Findings: Transabdominal and endovaginal sonographic evaluation of the pelvis. The uterus is anteverted in position, measuring 11.3 x 6.1 x 6.9cm. No uterine mass. Endometrial stripe thickness is 4 millimeters. The right ovary measures 3.8 x 2.1 x 1.8 cm and appears unremarkable. Normal arterial and venous waveform. The left ovary is enlarged, measuring 4.9 x 3.8 x 3.5 cm. There is coarse left ovarian echotexture and no discernible arterial waveform. Peripheral 3.2 x 2.1 x 3.7 cm hypoechoic area within the ovary, possibly reflecting peripheral displacement of follicles. Multiple small subcentimeter nabothian cysts in the cervix. Small volume free fluid in the pelvis. Impression: Enlarged left ovary with coarse echotexture, no discernible arterial waveform and possible peripheral displacement of follicles is concerning for left ovarian torsion. Small volume free fluid in the pelvis. Normal right ovary. Normal uterus. The above critical findings were discussed with Dr. Coburn on 07/22/2019 10:26 AM, who responded indicating that the communication was understood. Signed by: Jenn Ibarra MD on 07/22/2019 10:40 AM Dictated By: JENN IBARRA MD 1040 Transcribed By: IONA on 07/22/19 1040 COPY TO: JOSE MANUEL COBURN MD US PELVIS COMPLETE NON [id number] 10:26:00 [place] [address] Patient Name: CHRISTINE OTTO MR #: [id number] : 1990 Age/Sex: 28/F Req #: [id number] Adm Physician: Ordered by: JOSE MANUEL COBURN MD Report #: [id number] Location: ER Room/Bed: Procedure: [id number] US/ US PELVIS COMPLETE NON OB Exam Date: 07/22/19 Exam T floyd: 0943 REPORT STATUS: Signed Exam: Pelvic ultrasound. History: Lower abdominal pain, pelvic pain Comparison: <None.> Findings: Transabdominal and endovaginal sonographic evaluation of the pelvis. The uterus is anteverted in position, measuring 11.3 x 6.1 x 6.9cm. No uterine mass. Endometrial stripe thickness is 4 millimeters. The right ovary measures 3.8 x 2.1 x 1.8 cm and appears unremarkable. Normal arterial and venous waveform. The left ovary is enlarged, measuring 4.9 x 3.8 x 3.5 cm. There is coarse left ovarian echotexture and no discernible arterial waveform. Peripheral 3.2 x 2.1 x 3.7 cm hypoechoic area within the ovary, possibly reflecting peripheral displacement of follicles. Multiple small subcentimeter nabothian cysts in the cervix. Small volume free fluid in the pelvis. Impression: Enlarged left ovary with coarse echotexture, no discernible arterial waveform and possible peripheral displacement of follicles is concerning for left ovarian torsion. Small volume free fluid in the pelvis. Normal right ovary. Normal uterus. The above critical findings were discussed with Dr. Coburn on 07/22/2019 10:26 AM, who responded indicating that the communication was understood. Signed by: Jenn Ibarra MD on 07/22/2019 10:40 AM Dictated By: JENN IBARRA MD 1040 Transcribed By: IONA on 07/22/19 1040 COPY TO: JOSE MANUEL COBURN MD Basophils % (Manual)2019-07-22 10:04:00* Test Item Value Reference Range Interpretation Comments Basophils % (Manual) (test code = 07061-8) 1 0-1.5 [facility]2019-11-13 10:04:00* Test Item Value Reference Range Interpretation Comments Stomatocytes (test code = 42955-9) SLIGHT [facility]Basophils % (Manual)2019-07-22 10:04:00* Test Item Value Reference Range Interpretation Comments Basophils % (Manual) (test code = 51853-2) 1 0-1.5 [facility] 10:04:00* Test Item Value Reference Range Interpretation Comments Stomatocytes (test code = 13146-5) SLIGHT [facility]Basophils % (Manual)2019-07-22 10:04:00* Test Item Value Reference Range Interpretation Comments Basophils % (Manual) (test code = 98687-0) 1 0-1.5 [facility]-13 10:04:00* Test Item Value Reference Range Interpretation Comments Stomatocytes (test code = 72856-5) SLIGHT [facility]Basophils % (Manual)2019-07-22 10:04:00* Test Item Value Reference Range Interpretation Comments Basophils % (Manual) (test code = 57492-4) 1 0-1.5 [facility] 10:04[facility]* Test Item Value Reference Range Interpretation Comments Stomatocytes (test code = 55686-2) SLIGHT [facility] CampusUrine Tesw3488-62-62 08:41:00* Test Item Value Reference Range Interpretation Comments Urine Test (test code = 2106-3) NEGATIVE NEGATIVE [facility] CampusUrine Dmgh5895-82-41 08:41:00* Test Item Value Reference Range Interpretation Comments Urine Test (test code = 2106-3) NEGATIVE NEGATIVE [facility] CampusUrine Ywfy4421-12-26 08:41:00* Test Item Value Reference Range Interpretation Comments Urine Test (test code = 2106-3) NEGATIVE NEGATIVE [facility] CampusUrine Gnoy6761-34-19 08:41:00* Test Item Value Reference Range Interpretation Comments Urine Test (test code = 2106-3) NEGATIVE NEGATIVE [facility] CampusManual basophil shlawdsuqy9246-94-60 08:00:00* Test Item Value Reference Range Interpretation Comments Basophils % (Manual) (test code = 13863-2) 1 0-1.5 [facility] CampusBlood stomatocytes detection by light znqnwhtszj0270-61-03 08:00:00* Test Item Value Reference Range Interpretation Comments Stomatocytes (test code = 25243-3) SLIGHT [facility] CampusUrine human chorionic gonadotropin (hCG) jotrpefeb5309-82-72 07:30:00* Test Item Value Reference Range Interpretation Comments Urine Test (test code = 2106-3) NEGATIVE NEGATIVE [facility] CampusProthrombin Ueod1310-05-62 22:50:00* Test Item Value Reference Range Interpretation Comments Prothrombin Time (test code = 5902-2) 13.1 11.9-14.5 [facility] CampusProthromb Time International Ratio 2019-02-09 22:50:00* Test Item Value Reference Range Interpretation Comments Prothromb Time International Ratio (test code = 6301-6) 0.94 Oral Anticoagulant Therapy INR Values:1. Low Intensity Therapy 1.5 - 2.02 . Moderate Intensity Therapy 2.0 - 3.03. High Intensity Therapy(1) 2.5 - 3. 54. High Intensity Therapy(2) 3.0 - 4.05. Panic Value INR > 5.0 [facility] CampusActivated Partial Thromboplast Time 2019-02-09 22:50:00* Test Item Value Reference Range Interpretation Comments Activated Partial Thromboplast Time (test code = 19348-6) 26.8 23.8-35.5 [facility] CampusB-Type Natriuretic Feelczv2254-23-63 22:49:00* Test Item Value Reference Range Interpretation Comments B-Type Natriuretic Peptide (test code = 64721-5) 18.6 0-100 [facility] CampusCreatine Kinase LS8804-73-59 22:49:00* Test Item Value Reference Range Interpretation Comments Creatine Kinase MB (test code = 55242-9) 1.20 0-5.0 [facility] CampusTropon Q7825-34-09 22:49:00* Test Item Value Reference Range Interpretation Comments Troponin I (test code = KLK1263) 0.008 0-0.300 [facility] CampusB-Type Natriuretic Ngzrgso3956-15-41 22:49:00* Test Item Value Reference Range Interpretation Comments B-Type Natriuretic Peptide (test code = 80355-7) 18.6 0-100 [facility] CampusCreatine Kinase ZB8712-56-58 22:49:00* Test Item Value Reference Range Interpretation Comments Creatine Kinase MB (test code = 37145-5) 1.20 0-5.0 [place] 89706019-06-03 22:49:00* Test Item Value Reference Range Interpretation Comments Troponin I (test code = VYK1396) 0.008 0-0.300 [facility] CampusB-Type Natriuretic Nbssqbq6630-47-62 22:49:00* Test Item Value Reference Range Interpretation Comments B-Type Natriuretic Peptide (test code = 63301-2) 18.6 0-100 [facility] CampusB-Type Natriuretic Votkbqc0064-46-76 22:49:00* Test Item Value Reference Range Interpretation Comments B-Type Natriuretic Peptide (test code = 52147-3) 18.6 0-100 [facility]odium Dwxto4158-77-45 22:42:00* Test Item Value Reference Range Interpretation Comments Sodium Level (test code = 2951-2) 134 136-145 L [facility] CampusPotassium Tmyyt7464-25-97 22:42:00* Test Item Value Reference Range Interpretation Comments Potassium Level (test code = 2823-3) 3.5 3.5-5.1 [facility] CampusChloride Aohdp3602-42-09 22:42:00* Test Item Value Reference Range Interpretation Comments Chloride Level (test code = 2075-0) 103 98-107 [facility] CampusCarbon Dioxide Scdue3712-66-03 22:42:00* Test Item Value Reference Range Interpretation Comments Carbon Dioxide Level (test code = 2028-9) 26 22-29 [facility] CampusAnion Maw2891-47-31 22:42:00* Test Item Value Reference Range Interpretation Comments Anion Gap (test code = 11250-6) 8.5 8-16 [facility] CampusBlood Urea Zoggxiyq3279-86-91 22:42:00* Test Item Value Reference Range Interpretation Comments Blood Urea Nitrogen (test code = 3094-0) 15 7-26 [facility] CampusCreatinine2019-06-03 22:42:00* Test Item Value Reference Range Interpretation Comments Creatinine (test code = 2160-0) 0.97 0.57-1.11 [facility] CampusBUN/Creatinine Igsth4466-90-98 22:42:00* Test Item Value Reference Range Interpretation Comments BUN/Creatinine Ratio (test code = 3097-3) 15 6-25 [facility] CampusEstimat Glomerular Filtration Rate 2019-02-09 22:42:00* Test Item Value Reference Range Interpretation Comments Estimat Glomerular Filtration Rate (test code = 526999157) > 60 >60 Ranges were taken from the National Kidney Disease Education Program and the [facility] Kid[facility] Foundation literature.Reference ranges:60 or greater: Atbrsc80-76 ( for 3 consecutive months): Chronic kidney disease 15 or less: Kidney failureThe Hospitals of Providence Memorial CampusGlucose Igtur7247-25-58 22:42:00* Test Item Value Reference Range Interpretation Comments Glucose Level (test code = ECM4886) 87 74-118 [facility] CampusCalcium Spmhr9507-65-82 22:42:00* Test Item Value Reference Range Interpretation Comments Calcium Level (test code = 96706-6) 8.8 8.4-10.2 [facility] CampusTotal Ggtlbmzai5266-50-90 22:42:00* Test Item Value Reference Range Interpretation Comments Total Bilirubin (test code = 1975-2) 0.4 0.2-1.2 [facility] CampusAspartate Amino Transf (AST/SGOT) 2019-02-09 22:42:00* Test Item Value Reference Range Interpretation Comments Aspartate Amino Transf (AST/SGOT) (test code = Aspartate Amino Transf (AST/SGOT)) 22 5-34 [facility] CampusAlanine Aminotransferase (ALT/SGPT) 2019-02-09 22:42:00* Test Item Value Reference Range Interpretation Comments Alanine Aminotransferase (ALT/SGPT) (test code = 1742-6) 15 0-55 [facility] CampusTotal Rupwxsb3609-08-67 22:42:00* Test Item Value Reference Range Interpretation Comments Total Protein (test code = 2885-2) 9.8 6.5-8.1 H [facility] CampusAlbumin2019-06-03 22:42:00* Test Item Value Reference Range Interpretation Comments Albumin (test code = 1751-7) 3.5 3.5-5.0 [facility] CampusGlobulin2019-06-03 22:42:00* Test Item Value Reference Range Interpretation Comments Globulin (test code = 91125-3) 6.3 2.3-3.5 H [facility] CampusAlbumin/Globulin Rhxqx1765-63-92 22:42:00 * Test Item Value Reference Range Interpretation Comments Albumin/Globulin Ratio (test code = 1759-0) 0.6 0.8-2.0 L [facility] CampusAlkaline Qvlywdmsxgl0717-17-36 22:42:00* Test Item Value Reference Range Interpretation Comments Alkaline Phosphatase (test code = 6768-6) 22 40-150 L [facility] CampusCreatine Kgrzst3395-66-76 22:42:00* Test Item Value Reference Range Interpretation Comments Creatine Kinase (test code = 2157-6) 274 29-168 H [facility] CampusCreatine Vdozkt9291-36-54 22:42:00* Test Item Value Reference Range Interpretation Comments Creatine Kinase (test code = 2157-6) 274 29-168 H [facility] CampusWhite Blood Nvvwk7144-90-65 22:20:00* Test Item Value Reference Range Interpretation Comments White Blood Count (test code = 6690-2) 4.45 4.8-10.8 L [facility] CampusRed Blood Mkklg0654-61-62 22:20:00* Test Item Value Reference Range Interpretation Comments Red Blood Count (test code = 789-8) 3.25 3.6-5.1 L [facility] CampusHemoglobin2019-06-03 22:20:00* Test Item Value Reference Range Interpretation Comments Hemoglobin (test code = 10158-0) 9.8 12.0-16.0 L [facility] [facility]* Test Item Value Reference Range Interpretation Comments Hematocrit (test code = 4544-3) 31.1 34.2-44.1 L [facility] CampusMean Corpuscular Bccoqq0272-33-08 22:20:00* Test Item Value Reference Range Interpretation Comments Mean Corpuscular Volume (test code = 787-2) 95.7 81-99 [facility] CampusMean Corpuscular Nzcyijvipm7713-64-58 22:20:00* Test Item Value Reference Range Interpretation Comments Mean Corpuscular Hemoglobin (test code = 785-6) 30.2 28-32 [facility] CampusMean Corpuscular Hemoglobin Concent 2019-02-09 22:20:00* Test Item Value Reference Range Interpretation Comments Mean Corpuscular Hemoglobin Concent (test code = 786-4) 31.5 31-35 [facility] CampusRed Cell Distribution Ufjmx3826-19-70 22:20:00* Test Item Value Reference Range Interpretation Comments Red Cell Distribution Width (test code = 95124-0) 13.3 11.7 -14.4 [facility] CampusPlatelet Jkads1657-14-28 22:20:00* Test Item Value Reference Range Interpretation Comments Platelet Count (test code = 777-3) 230 140-360 [facility] CampusNeutrophils (%) (Auto)2019-02-09 22:20:00 * Test Item Value Reference Range Interpretation Comments Neutrophils (%) (Auto) (test code = 86147-6) 58.5 38.7-80.0 [facility] CampusLymphocytes (%) (Auto)2019-02-09 22:20:00 * Test Item Value Reference Range Interpretation Comments Lymphocytes (%) (Auto) (test code = 736-9) 34.8 18.0-39.1 [facility] CampusMonocytes (%) (Auto)2019-02-09 22:20:00* Test Item Value Reference Range Interpretation Comments Monocytes (%) (Auto) (test code = 5905-5) 6.3 4.4-11.3 [facility] CampusEosinophils (%) (Auto)2019-02-09 22:20:00 * Test Item Value Reference Range Interpretation Comments Eosinophils (%) (Auto) (test code = 713-8) 0.0 0.0-6.0 [facility] CampusBasophils (%) (Auto)2019-02-09 22:20:00* Test Item Value Reference Range Interpretation Comments Basophils (%) (Auto) (test code = 706-2) 0.2 0.0-1.0 [facility] CampusIM GRANULOCYTES %2019-02-09 22:20:00* Test Item Value Reference Range Interpretation Comments IM GRANULOCYTES % (test code = IM GRANULOCYTES %) 0.2 0.0- 1.0 [facility] CampusNeutrophils # (Auto)2019-02-09 22:20:00* Test Item Value Reference Range Interpretation Comments Neutrophils # (Auto) (test code = 751-8) 2.6 2.1-6.9 [facility] CampusLymphocytes # (Auto)2019-02-09 22:20:00* Test Item Value Reference Range Interpretation Comments Lymphocytes # (Auto) (test code = 57423-4) 1.6 1.0-3.2 [facility] CampusMonocytes # (Auto)2019-02-09 22:20:00* Test Item Value Reference Range Interpretation Comments Monocytes # (Auto) (test code = 742-7) 0.3 0.2-0.8 [facility] CampusEosinophils # (Auto)2019-02-09 22:20:00* Test Item Value Reference Range Interpretation Comments Eosinophils # (Auto) (test code = 711-2) 0.0 0.0-0.4 [facility] CampusBasophils # (Auto)2019-02-09 22:20:00* Test Item Value Reference Range Interpretation Comments Basophils # (Auto) (test code = 704-7) 0.0 0.0-0.1 [facility] CampusAbsolute Immature Granulocyte (auto 2019-02-09 22:20:00* Test Item Value Reference Range Interpretation Comments Absolute Immature Granulocyte (auto (dana t code = Absolute Immature Granulocyte (auto) 0.01 0-0.1 [facility] CampusUrine LFD2508-58-89 20:58:00* Test Item Value Reference Range Interpretation Comments Urine WBC (test code = 5821-4) NONE 0-5 [facility] CampusUrine KFH5209-49-92 20:58:00* Test Item Value Reference Range Interpretation Comments Urine RBC (test code = 26231-0) 21-50 0-5 H [facility] CampusUrine Xzwwadxc4585-38-65 20:58:00* Test Item Value Reference Range Interpretation Comments Urine Bacteria (test code = 77411-8) MANY NONE H [facility] CampusUrine Epithelial Numpf1760-64-13 20:58:00 * Test Item Value Reference Range Interpretation Comments Urine Epithelial Cells (test code = 08595-6) FEW NONE [facility] CampusUrine Sysae4849-38-00 20:48:00* Test Item Value Reference Range Interpretation Comments Urine Color (test code = 5778-6) YELLOW YELLOW [facility] CampusUrine Jadytvc0704-30-85 20:48:00* Test Item Value Reference Range Interpretation Comments Urine Clarity (test code = 73368-2) SL CLOUDY CLEAR [facility] CampusUrine Specific Efjrvdy7520-00-57 20:48:00 * Test Item Value Reference Range Interpretation Comments Urine Specific [place] (test code = 5811-5) 1.020 1.010-1.02 5 [facility] CampusUrine xK8528-27-40 20:48:00* Test Item Value Reference Range Interpretation Comments Urine pH (test code = 35198-9) 5.5 5-7 [facility] CampusUrine Leukocyte Idpmcjyp6552-67-09 20:48:00* Test Item Value Reference Range Interpretation Comments Urine Leukocyte Esterase (test code = 51649-2) NEGATIVE NEGATIV E [facility] CampusUrine Izpyeit0314-07-56 20:48:00* Test Item Value Reference Range Interpretation Comments Urine Nitrite (test code = 85407-4) NEGATIVE NEGATIVE [facility] CampusUrine Zymylrp5318-17-15 20:48:00* Test Item Value Reference Range Interpretation Comments Urine Protein (test code = 24566-4) NEGATIVE NEGATIVE [facility] CampusUrine Glucose (UA)2019-02-09 20:48:00* Test Item Value Reference Range Interpretation Comments Urine Glucose (UA) (test code = 16434-9) NEGATIVE NEGATIVE [facility] CampusUrine Sdmqqub2821-59-00 20:48:00* Test Item Value Reference Range Interpretation Comments Urine Ketones (test code = 87015-2) NEGATIVE NEGATIVE [facility] CampusUrine Bepuwdyjwktd0971-71-57 20:48:00* Test Item Value Reference Range Interpretation Comments Urine Urobilinogen (test code = 87521-8) 0.2 0.2-1 [facility] CampusUrine Opfbnfops2155-59-63 20:48:00* Test Item Value Reference Range Interpretation Comments Urine Bilirubin (test code = 1977-8) NEGATIVE NEGATIVE [facility] CampusUrine Hlovh9022-30-94 20:48:00* Test Item Value Reference Range Interpretation Comments Urine Blood (test code = 31326-3) 3+ NEGATIVE [facility] CampusCHEST SINGLE (PORTABLE)2019-02-09 20:45:00 [facility] [address] [place] [address] Patient Name: CHRISTINE OTTO MR #: [id number] : 1990 Age/Sex: 28/F Req #: [id number] Adm Physician: Ordered by: JOSE MANUEL COBURN MD Report #: [id number] Location: ER Room/Bed: Procedure: [id number] DX/ CHEST SINGLE (PORTABLE) Exam Date: Exam Time: REPORT STATUS: Signed EXAMINATION: CHEST SINGLE (PORTABLE) INDICATION: CHEST PAIN Y AIDAN RISON: None FINDINGS: AP view TUBES and LINES: None. L UNGS/PLEURA: The lungs are clear. No pleural effusion or pneumothorax. HEA RT AND MEDIASTINUM: The cardiomediastinal silhouette is unremarkable. BONES AND SOFT TISSUES: No acute osseous lesion. Soft tissues are unremarkab le. UPPER ABDOMEN: No free air under the diaphragm. IMPRESSION: No acute thoracic abnormality. Signed by: Aris Menjivar MD on 02/09/2019 8:46 PM Dictated By: ZAK MENJIVAR MD 43 Transcribed By: IONA on 02/09/19 COPY TO: JOSE MANUEL COBURN MD Urine Qkcr1211-43-81 20:44:00* Test Item Value Reference Range Interpretation Comments Urine Test (test code = 2106-3) NEGATIVE NEGATIVE [facility] ODAYWCEUB1642-80-39 10:04:00 - DIAG MAMM BILATERAL AYESHA CAD DIGITALBILATERAL FIRST EVER DIGITAL DIAGNOSTIC MAMMOGRAM 3D/2D WITH CAD: 12/17/2018CLINICAL: Nipple discharge, right breast, brown. Digital breast tomosynthesis was performed in addition to routine CC and MLO views. Current mammographic images were evaluated by either a Dine perfect M-Vu or a Spark Etail ImageChecker CAD (computer aided detection system). No prior exams were available for comparison. This is a baseline exam.There [...] is no sonographic evidence of breast malignancy. Follow-up with ACR guidelines. Naseem Reese M.D. rb/:12/17/2018 10:04:00 Coating Machine Operator: Sandra TAY, [facility]-FWletter sent: BIRADS 1-2 Combo FU Letter Mammogram BI-RADS: 0 Indeterminate Ultrasound BI-RADS: 2 BenignDIAG MAMM BILATERAL AYESHA CAD DIGITAL 2018-12-17 10:04:00 - DIAG MAMM BILATERAL AYESHA CAD DIGITALBILATERAL FIRST EVER DIGITAL DIAGNOSTIC MAMMOGRAM 3D/2D WITH CAD: 12/17/2018CLINICAL: Nipple discharge, right breast, brown. Digital breast tomosynthesis was performed in addition to routine CC and MLO views. Current mammographic images were evaluated by either a Dine perfect M-Vu or a Spark Etail ImageChecker CAD (computer aided detection system). No prior exams were available for comparison. This is a baseline exam.There [...] is no sonographic evidence of breast malignancy. Follow-up with ACR guidelines. Naseem Reese M.D. rb/:12/17/2018 10:04:00 Coating Machine Operator: Sandra TAY, [facility]-FWletter sent: BIRADS 1-2 Combo FU Letter Mammogram BI-RADS: 0 Indeterminate Ultrasound BI-RADS: 2 BenignUrine Jzoxv4834-84-17 00:45:00* Test Item Value Reference Range Interpretation Comments Urine Color (test code = 5778-6) YELLOW YELLOW [facility] CampusUrine Orokdtm7706-89-46 00:45:00* Test Item Value Reference Range Interpretation Comments Urine Clarity (test code = 57650-6) CLOUDY CLEAR H [facility] CampusUrine Specific Xgthnof3718-28-26 00:45:00 * Test Item Value Reference Range Interpretation Comments Urine Specific [place] (test code = 5811-5) 1.025 1.010-1.02 5 [facility] CampusUrine oB2196-16-70 00:45:00* Test Item Value Reference Range Interpretation Comments Urine pH (test code = 00834-7) 6 5-7 [facility] CampusU[facility] Leukocyte Hbgvrdcb7364-27-77 00:45:00* Test Item Value Reference Range Interpretation Comments Urine Leukocyte Esterase (test code = 5799-2) NEGATIVE NEGATIVE [facility] CampusU[facility] Oxzmvgl5117-25-13 00:45:00* Test Item Value Reference Range Interpretation Comments Urine Nitrite (test code = 04821-1) NEGATIVE NEGATIVE [facility] CampusUrine Dbucnkr1182-98-31 00:45:00* Test Item Value Reference Range Interpretation Comments Urine Protein (test code = 5804-0) TRACE NEGATIVE H [facility] Glucose (UA)2018-12-15 00:45:00* Test Item Value Reference Range Interpretation Comments Urine Glucose (UA) (test code = 2349-9) NEGATIVE NEGATIVE [facility] CampusU[facility] Posdbyb2794-24-96 00:45:00* Test Item Value Reference Range Interpretation Comments Urine Ketones (test code = 25492-3) NEGATIVE NEGATIVE [facility] Wjxueztakwuj3817-71-28 00:45:00* Test Item Value Reference Range Interpretation Comments Urine Urobilinogen (test code = 32665-9) 0.2 0.2-1 [facility] Bkjnnddov9569-32-54 00:45:00* Test Item Value Reference Range Interpretation Comments Urine Bilirubin (test code = 1978-6) NEGATIVE NEGATIVE [facility] CampusU[facility] Rwjgb7570-74-68 00:45:00* Test Item Value Reference Range Interpretation Comments Urine Blood (test code = 12808-4) 3+ NEGATIVE H [facility] CampusU[facility] EAX4549-41-06 00:45:00* Test Item Value Reference Range Interpretation Comments Urine WBC (test code = 5821-4) 21-50 0-5 H [facility] CampusU[facility] RIL9992-30-35 00:45:00* Test Item Value Reference Range Interpretation Comments Urine RBC (test code = 26958-0) >50 0-5 H [facility] CampusU[facility] Kvodxuuv0726-58-28 00:45:00* Test Item Value Reference Range Interpretation Comments Urine Bacteria (test code = 06145-2) MODERATE NONE H [facility] Epithelial Lujvm1440-53-27 00:45:00 * Test Item Value Reference Range Interpretation Comments Urine Epithelial Cells (test code = 72741-1) FEW NONE [facility] Fyys3658-35-10 00:45:00* Test Item Value Reference Range Interpretation Comments Urine Test (test code = 2106-3) NEGATIVE NEGATIVE Y@IS THE INTERNAL POSITIVE CONTROL OK? [facility]at Ukivemi6958-79-28 11:10:00* Test Item Value Reference Range Interpretation Comments Throat Culture (test code = 626-2) Organism: STREPTOCOCCUS GROUP A [facility] CampusThroat Slxqxch2290-65-53 11:10:00* Test Item Value Reference Range Interpretation Comments Throat Culture (test code = 626-2) Organism: STREPTOCOCCUS GROUP A [facility] CampusUrine ZKX4350-62-64 13:32:00* Test Item Value Reference Range Interpretation Comments Urine WBC (test code = 5821-4) 6-10 0-5 H [facility] CampusU[facility] TBV8019-10-06 13:32:00* Test Item Value Reference Range Interpretation Comments Urine RBC (test code = 95666-4) 11-20 0-5 H [facility] CampusU[facility] Gjqjugqd7018-64-54 13:32:00* Test Item Value Reference Range Interpretation Comments Urine Bacteria (test code = 13416-8) RARE NONE [facility] CampusU[facility] Epithelial Ohcst4172-79-81 13:32:00 * Test Item Value Reference Range Interpretation Comments Urine Epithelial Cells (test code = 17665-5) FEW NONE [facility] CampusU[facility] Uglji9431-69-12 13:18:00* Test Item Value Reference Range Interpretation Comments Urine Color (test code = 5778-6) YELLOW YELLOW [facility] CampusU[facility] Nbvzsue2429-08-15 13:18:00* Test Item Value Reference Range Interpretation Comments Urine Clarity (test code = 50481-7) SL CLOUDY CLEAR [facility] CampusUrine Specific Qpydqtb6199-94-12 13:18:00 * Test Item Value Reference Range Interpretation Comments Urine Specific [place] (test code = 5811-5) 1.020 1.010-1.02 5 [facility] CampusU[facility] fM5402-68-30 13:18:00* Test Item Value Reference Range Interpretation Comments Urine pH (test code = 74296-6) 6 5-7 [facility] Leukocyte Vjcaryhq2757-99-37 13:18:00* Test Item Value Reference Range Interpretation Comments Urine Leukocyte Esterase (test code = 5799-2) TRACE NEGATIVE H [facility] CampusUrine Pasequo0987-56-01 13:18:00* Test Item Value Reference Range Interpretation Comments Urine Nitrite (test code = 22720-8) NEGATIVE NEGATIVE [facility] Faybtdl4648-35-57 13:18:00* Test Item Value Reference Range Interpretation Comments Urine Protein (test code = 5804-0) TRACE NEGATIVE H [facility] CampusUrine Glucose (UA)2018-07-29 13:18:00* Test Item Value Reference Range Interpretation Comments Urine Glucose (UA) (test code = 2349-9) NEGATIVE NEGATIVE [facility] CampusU[facility] Pdnycjw5201-48-82 13:18:00* Test Item Value Reference Range Interpretation Comments Urine Ketones (test code = 41281-2) NEGATIVE NEGATIVE [facility] CampusUrine Texmmmdsgpmv6730-40-79 13:18:00* Test Item Value Reference Range Interpretation Comments Urine Urobilinogen (test code = 58044-8) 0.2 0.2-1 [facility] Dyvvzcrxs9942-45-94 13:18:00* Test Item Value Reference Range Interpretation Comments Urine Bilirubin (test code = 1978-6) NEGATIVE NEGATIVE [facility] CampusU[facility] Vgdnu5048-60-62 13:18:00* Test Item Value Reference Range Interpretation Comments Urine Blood (test code = 66937-3) 3+ NEGATIVE H [facility] CampusMonoscreen2018-11-20 12:38:00* Test Item Value Reference Range Interpretation Comments Monoscreen (test code = 5215-9) NEGATIVE NEGATIVE [facility] CampusMonoscreen2018-11-20 12:38:00* Test Item Value Reference Range Interpretation Comments Monoscreen (test code = 5215-9) NEGATIVE NEGATIVE [facility] CampusMonoscreen2018-11-20 12:38:00* Test Item Value Reference Range Interpretation Comments Monoscreen (test code = 5215-9) NEGATIVE NEGATIVE [facility] CampusInfluenza Virus Types A,B Antigen 2018-07-29 12:22:00* Test Item Value Reference Range Interpretation Comments Influenza Virus Types A,B Antigen (test code = 15276-3) NEGATIVE NEGATIVE [facility] CampusInfluenza Virus Types A,B Antigen 2018-07-29 12:22:00* Test Item Value Reference Range Interpretation Comments Influenza Virus Types A,B Antigen (test code = 56107-3) NEGATIVE NEGATIVE [facility] CampusInfluenza Virus Types A,B Antigen 2018-07-29 12:22:00* Test Item Value Reference Range Interpretation Comments Influenza Virus Types A,B Antigen (test code = 79960-7) NEGATIVE NEGATIVE [facility] CampusThyroid Stimulating Hormone (TSH) 2018-07-29 12:17:00* Test Item Value Reference Range Interpretation Comments Thyroid Stimulating Hormone (TSH) (test code = 76074-5) 4.481 0.350-4.940 [facility] CampusThyroid Stimulating Hormone (TSH) 2018-07-29 12:17:00* Test Item Value Reference Range Interpretation Comments Thyroid Stimulating Hormone (TSH) (test code = 70911-6) 4.481 0.350-4.940 [facility] CampusThyroid Stimulating Hormone (TSH) 2018-07-29 12:17:00* Test Item Value Reference Range Interpretation Comments Thyroid Stimulating Hormone (TSH) (test code = 44181-3) 4.481 0.350-4.940 [facility] CampusGroup A Streptococcus Zsmjky5379-63-22 12:09:00* Test Item Value Reference Range Interpretation Comments Group A Streptococcus Screen (test code = 08603-9) NEGATIVE NEG ATIVE [facility] CampusGroup A Streptococcus Wxdxac1873-36-10 12:09:00* Test Item Value Reference Range Interpretation Comments Group A Streptococcus Screen (test code = 35174-6) NEGATIVE NEG IVE [facility] CampusGroup A Streptococcus Zzxjam6358-41-32 12:09:00* Test Item Value Reference Range Interpretation Comments Group A Streptococcus Screen (test code = 90365-9) NEGATIVE NEG ATIVE [facility] Oirnc4065-69-80 12:02:00* Test Item Value Reference Range Interpretation Comments Sodium Level (test code = 2951-2) 132 136-145 L [facility] CampusPotassium Oxnfu6201-27-40 12:02:00* Test Item Value Reference Range Interpretation Comments Potassium Level (test code = 2823-3) 3.4 3.5-5.1 L [facility] CampusChloride Qkpqc2373-11-45 12:02:00* Test Item Value Reference Range Interpretation Comments Chloride Level (test code = 2075-0) 101 98-107 [facility] CampusCarbon Dioxide Cwsnu9965-99-62 12:02:00* Test Item Value Reference Range Interpretation Comments Carbon Dioxide Level (test code = 2028-9) 26 22-29 [facility] CampusAnion Ypu3348-79-51 12:02:00* Test Item Value Reference Range Interpretation Comments Anion Gap (test code = 38673-8) 8.4 8-16 [facility] CampusBlood Urea Ivstfcio1138-22-74 12:02:00* Test Item Value Reference Range Interpretation Comments Blood Urea Nitrogen (test code = 3094-0) 13 7-26 [facility] CampusCreatinine2018-11-20 12:02:00* Test Item Value Reference Range Interpretation Comments Creatinine (test code = 2160-0) 1.11 0.57-1.11 [facility] CampusBUN/Creatinine Vykdi3099-82-78 12:02:00* Test Item Value Reference Range Interpretation Comments BUN/Creatinine Ratio (test code = 3097-3) 12 6-25 [facility] CampusEstimat Glomerular Filtration Rate 2018-07-29 12:02:00* Test Item Value Reference Range Interpretation Comments Estimat Glomerular Filtration Rate (test code = 800792731) > 60 >60 Ranges were taken from the National Kidney Disease Education Program and the [facility] Kidney Foundation literature.Reference ranges:60 or greater: Cdygun13-81 ( for 3 consecutive months): Chronic kidney disease 15 or less: Kidney failureThe Hospitals of Providence Memorial CampusGlucose Xvexx6406-65-08 12:02:00* Test Item Value Reference Range Interpretation Comments Glucose Level (test code = XPD2397) 124 74-118 H [facility] CampusCalcium Dwvvn4645-32-23 12:02:00* Test Item Value Reference Range Interpretation Comments Calcium Level (test code = 55463-9) 8.7 8.4-10.2 [facility] CampusT[facility] Uqvoolvml9072-38-38 12:02:00* Test Item Value Reference Range Interpretation Comments Total Bilirubin (test code = 1975-2) 0.4 0.2-1.2 [facility] CampusAspartate Amino Transf (AST/SGOT) 2018-07-29 12:02:00* Test Item Value Reference Range Interpretation Comments Aspartate Amino Transf (AST/SGOT) (test code = Aspartate Amino Transf (AST/SGOT)) 20 5-34 [facility] CampusAlanine Aminotransferase (ALT/SGPT) 2018-07-29 12:02:00* Test Item Value Reference Range Interpretation Comments Alanine Aminotransferase (ALT/SGPT) (test code = 1742-6) 12 0-55 [facility] CampusTotal Zgmeuur1392-12-98 12:02:00* Test Item Value Reference Range Interpretation Comments Total Protein (test code = 2885-2) 8.7 6.5-8.1 H [facility] CampusAlbumin2018-11-20 12:02:00* Test Item Value Reference Range Interpretation Comments Albumin (test code = 1751-7) 2.9 3.5-5.0 L [facility] CampusGlobulin2018-11-20 12:02:00* Test Item Value Reference Range Interpretation Comments Globulin (test code = 90436-6) 5.8 2.3-3.5 H [facility] CampusAlbumin/Globulin Vjjqf0958-54-98 12:02:00 * Test Item Value Reference Range Interpretation Comments Albumin/Globulin Ratio (test code = 1759-0) 0.5 0.8-2.0 L [facility] CampusAlkaline Itotgyzagll9142-78-22 12:02:00* Test Item Value Reference Range Interpretation Comments Alkaline Phosphatase (test code = 6768-6) 20 40-150 L [facility] CampusLipase2018-11-20 12:02:00* Test Item Value Reference Range Interpretation Comments Lipase (test code = 3040-3) 52 8-78 [facility]odium Chgth7935-49-50 12:02:00* Test Item Value Reference Range Interpretation Comments Sodium Level (test code = 2951-2) 132 136-145 L [facility] CampusPotassium Rravn7761-62-39 12:02:00* Test Item Value Reference Range Interpretation Comments Potassium Level (test code = 2823-3) 3.4 3.5-5.1 L [facility] CampusChloride Rekbk3561-81-02 12:02:00* Test Item Value Reference Range Interpretation Comments Chloride Level (test code = 2075-0) 101 98-107 [facility] CampusCarbon Dioxide Whbsw6011-91-99 12:02:00* Test Item Value Reference Range Interpretation Comments Carbon Dioxide Level (test code = 2028-9) 26 22-29 [facility] CampusAnion Lsx9466-31-26 12:02:00* Test Item Value Reference Range Interpretation Comments Anion Gap (test code = 00579-0) 8.4 8-16 [facility] CampusBlood Urea Hxbjrwvg2453-46-68 12:02:00* Test Item Value Reference Range Interpretation Comments Blood Urea Nitrogen (test code = 3094-0) 13 7-26 [facility] CampusCreatinine2018-11-20 12:02:00* Test Item Value Reference Range Interpretation Comments Creatinine (test code = 2160-0) 1.11 0.57-1.11 [facility] CampusBUN/Creatinine Rllbw4419-33-36 12:02:00* Test Item Value Reference Range Interpretation Comments BUN/Creatinine Ratio (test code = 3097-3) 12 6-25 [facility] CampusEstimat Glomerular Filtration Rate 2018-07-29 12:02:00* Test Item Value Reference Range Interpretation Comments Estimat Glomerular Filtration Rate (test code = 339955088) > 60 >60 Ranges were taken from the National Kidney Disease Education Program and the [facility] Kidney Foundation literature.Reference ranges:60 or greater: Lznupg34-94 ( for 3 consecutive months): Chronic kidney disease 15 or less: Kidney failureCH[facility] SouthGlucose Kmxxt7169-67-66 12:02:00* Test Item Value Reference Range Interpretation Comments Glucose Level (test code = QUN8518) 124 74-118 H [facility]Calcium Qwqye9259-02-02 12:02:00* Test Item Value Reference Range Interpretation Comments Calcium Level (test code = 27170-3) 8.7 8.4-10.2 [facility] CampusTotal Mnwnirnun2017-76-11 12:02:00* Test Item Value Reference Range Interpretation Comments Total Bilirubin (test code = 1975-2) 0.4 0.2-1.2 [facility] CampusAspartate Amino Transf (AST/SGOT) 2018-07-29 12:02:00* Test Item Value Reference Range Interpretation Comments Aspartate Amino Transf (AST/SGOT) (test code = Aspartate Amino Transf (AST/SGOT)) 20 5-34 [facility] CampusAlanine Aminotransferase (ALT/SGPT) 2018-07-29 12:02:00* Test Item Value Reference Range Interpretation Comments Alanine Aminotransferase (ALT/SGPT) (test code = 1742-6) 12 0-55 [facility] CampusTotal Iwpdxfu7280-77-39 12:02:00* Test Item Value Reference Range Interpretation Comments Total Protein (test code = 2885-2) 8.7 6.5-8.1 H [facility] CampusAlbumin2018-11-20 12:02:00* Test Item Value Reference Range Interpretation Comments Albumin (test code = 1751-7) 2.9 3.5-5.0 L [facility] CampusGlobulin2018-11-20 12:02:00* Test Item Value Reference Range Interpretation Comments Globulin (test code = 92342-5) 5.8 2.3-3.5 H [facility] CampusAlbumin/Globulin Gdcwc8279-52-43 12:02:00 * Test Item Value Reference Range Interpretation Comments Albumin/Globulin Ratio (test code = 1759-0) 0.5 0.8-2.0 L [facility] CampusAlkaline Bsysvpwppao5655-10-22 12:02:00* Test Item Value Reference Range Interpretation Comments Alkaline Phosphatase (test code = 6768-6) 20 40-150 L [facility] CampusLipase2018-11-20 12:02:00* Test Item Value Reference Range Interpretation Comments Lipase (test code = 3040-3) 52 8-78 [facility] CampusLipase2018-11-20 12:02:00* Test Item Value Reference Range Interpretation Comments Lipase (test code = 3040-3) 52 8-78 [facility] CampusWhite Blood Rvlui8909-34-80 11:42:00* Test Item Value Reference Range Interpretation Comments White Blood Count (test code = 6690-2) 9.60 4.8-10.8 [facility] CampusRed Blood Lntlb0585-08-50 11:42:00* Test Item Value Reference Range Interpretation Comments Red Blood Count (test code = 789-8) 3.32 3.6-5.1 L [facility] CampusHemoglobin2018-11-20 11:42:00* Test Item Value Reference Range Interpretation Comments Hemoglobin (test code = 95092-5) 10.1 12.0-16.0 L [facility] CampusHematocrit2018-11-20 11:42:00* Test Item Value Reference Range Interpretation Comments Hematocrit (test code = 4544-3) 31.6 34.2-44.1 L [facility] CampusMean Corpuscular Kilpsz0908-62-28 11:42:00* Test Item Value Reference Range Interpretation Comments Mean Corpuscular Volume (test code = 787-2) 95.2 81-99 [facility] CampusMean Corpuscular Raaaiqohzw9433-80-93 11:42:00* Test Item Value Reference Range Interpretation Comments Mean Corpuscular Hemoglobin (test code = 785-6) 30.4 28-32 [facility] CampusMean Corpuscular Hemoglobin Concent 2018-07-29 11:42:00* Test Item Value Reference Range Interpretation Comments Mean Corpuscular Hemoglobin Concent (test code = 786-4) 32.0 31-35 [facility] CampusRed Cell Distribution Ghath9930-33-65 11:42:00* Test Item Value Reference Range Interpretation Comments Red Cell Distribution Width (test code = 77359-2) 13.5 11.7 -14.4 [facility] CampusPlatelet Zpupw1251-60-86 11:42:00* Test Item Value Reference Range Interpretation Comments Platelet Count (test code = 777-3) 249 140-360 [facility] CampusNeutrophils (%) (Auto)2018-07-29 11:42:00 * Test Item Value Reference Range Interpretation Comments Neutrophils (%) (Auto) (test code = 86400-9) 75.8 38.7-80.0 [facility] CampusLymphocytes (%) (Auto)2018-07-29 11:42:00 * Test Item Value Reference Range Interpretation Comments Lymphocytes (%) (Auto) (test code = 736-9) 19.3 18.0-39.1 [facility] CampusMonocytes (%) (Auto)2018-07-29 11:42:00* Test Item Value Reference Range Interpretation Comments Monocytes (%) (Auto) (test code = 5905-5) 4.3 4.4-11.3 L [facility] CampusEosinophils (%) (Auto)2018-07-29 11:42:00 * Test Item Value Reference Range Interpretation Comments Eosinophils (%) (Auto) (test code = 713-8) 0.0 0.0-6.0 [facility] CampusBasophils (%) (Auto)2018-07-29 11:42:00* Test Item Value Reference Range Interpretation Comments Basophils (%) (Auto) (test code = 706-2) 0.2 0.0-1.0 [facility] CampusIM GRANULOCYTES %2018-07-29 11:42:00* Test Item Value Reference Range Interpretation Comments IM GRANULOCYTES % (test code = IM GRANULOCYTES %) 0.4 0.0- 1.0 [facility] CampusNeutrophils # (Auto)2018-07-29 11:42:00* Test Item Value Reference Range Interpretation Comments Neutrophils # (Auto) (test code = 751-8) 7.3 2.1-6.9 H [facility] CampusLymphocytes # (Auto)2018-07-29 11:42:00* Test Item Value Reference Range Interpretation Comments Lymphocytes # (Auto) (test code = 39822-2) 1.9 1.0-3.2 [facility] CampusMonocytes # (Auto)2018-07-29 11:42:00* Test Item Value Reference Range Interpretation Comments Monocytes # (Auto) (test code = 742-7) 0.4 0.2-0.8 [facility] CampusEosinophils # (Auto)2018-07-29 11:42:00* Test Item Value Reference Range Interpretation Comments Eosinophils # (Auto) (test code = 711-2) 0.0 0.0-0.4 [facility] CampusBasophils # (Auto)2018-07-29 11:42:00* Test Item Value Reference Range Interpretation Comments Basophils # (Auto) (test code = 704-7) 0.0 0.0-0.1 [facility] CampusAbsolute Immature Granulocyte (auto 2018-07-29 11:42:00* Test Item Value Reference Range Interpretation Comments Absolute Immature Granulocyte (auto (dana t code = Absolute Immature Granulocyte (auto) 0.04 0-0.1 [facility] CampusWhite Blood Gsxwd1064-94-69 11:42:00* Test Item Value Reference Range Interpretation Comments White Blood Count (test code = 6690-2) 9.60 4.8-10.8 [facility] CampusRed Blood Jxzva7636-94-35 11:42:00* Test Item Value Reference Range Interpretation Comments Red Blood Count (test code = 789-8) 3.32 3.6-5.1 L [facility] CampusHemoglobin2018-11-20 11:42:00* Test Item Value Reference Range Interpretation Comments Hemoglobin (test code = 70757-1) 10.1 12.0-16.0 L [facility] CampusHematocrit2018-11-20 11:42:00* Test Item Value Reference Range Interpretation Comments Hematocrit (test code = 4544-3) 31.6 34.2-44.1 L [facility] CampusMean Corpuscular Ygprwu3285-91-95 11:42:00* Test Item Value Reference Range Interpretation Comments Mean Corpuscular Volume (test code = 787-2) 95.2 81-99 [facility] CampusMean Corpuscular Scqfrgcjrf4294-03-30 11:42:00* Test Item Value Reference Range Interpretation Comments Mean Corpuscular Hemoglobin (test code = 785-6) 30.4 28-32 [facility] Hemoglobin Concent 2018-07-29 11:42:00* Test Item Value Reference Range Interpretation Comments Mean Corpuscular Hemoglobin Concent (test code = 786-4) 32.0 31-35 [facility] CampusRed Cell Distribution Fjpid6709-30-48 11:42:00* Test Item Value Reference Range Interpretation Comments Red Cell Distribution Width (test code = 23725-8) 13.5 11.7 -14.4 [facility] CampusPlatelet Rfnjw0465-40-44 11:42:00* Test Item Value Reference Range Interpretation Comments Platelet Count (test code = 777-3) 249 140-360 [facility] CampusNeutrophils (%) (Auto)2018-07-29 11:42:00 * Test Item Value Reference Range Interpretation Comments Neutrophils (%) (Auto) (test code = 64687-1) 75.8 38.7-80.0 [facility] CampusLymphocytes (%) (Auto)2018-07-29 11:42:00 * Test Item Value Reference Range Interpretation Comments Lymphocytes (%) (Auto) (test code = 736-9) 19.3 18.0-39.1 [facility] CampusMonocytes (%) (Auto)2018-07-29 11:42:00* Test Item Value Reference Range Interpretation Comments Monocytes (%) (Auto) (test code = 5905-5) 4.3 4.4-11.3 L [facility] CampusEosinophils (%) (Auto)2018-07-29 11:42:00 * Test Item Value Reference Range Interpretation Comments Eosinophils (%) (Auto) (test code = 713-8) 0.0 0.0-6.0 [facility] CampusBasophils (%) (Auto)2018-07-29 11:42:00* Test Item Value Reference Range Interpretation Comments Basophils (%) (Auto) (test code = 706-2) 0.2 0.0-1.0 [facility] CampusIM GRANULOCYTES %2018-07-29 11:42:00* Test Item Value Reference Range Interpretation Comments IM GRANULOCYTES % (test code = IM GRANULOCYTES %) 0.4 0.0- 1.0 [facility] CampusNeutrophils # (Auto)2018-07-29 11:42:00* Test Item Value Reference Range Interpretation Comments Neutrophils # (Auto) (test code = 751-8) 7.3 2.1-6.9 H [facility] CampusLymphocytes # (Auto)2018-07-29 11:42:00* Test Item Value Reference Range Interpretation Comments Lymphocytes # (Auto) (test code = 49120-3) 1.9 1.0-3.2 [facility] CampusMonocytes # (Auto)2018-07-29 11:42:00* Test Item Value Reference Range Interpretation Comments Monocytes # (Auto) (test code = 742-7) 0.4 0.2-0.8 [facility] CampusEosinophils # (Auto)2018-07-29 11:42:00* Test Item Value Reference Range Interpretation Comments Eosinophils # (Auto) (test code = 711-2) 0.0 0.0-0.4 [facility] CampusBasophils # (Auto)2018-07-29 11:42:00* Test Item Value Reference Range Interpretation Comments Basophils # (Auto) (test code = 704-7) 0.0 0.0-0.1 [facility] CampusAbsolute Immature Granulocyte (auto 2018-07-29 11:42:00* Test Item Value Reference Range Interpretation Comments Absolute Immature Granulocyte (auto (dana t code = Absolute Immature Granulocyte (auto) 0.04 0-0.1 [facility] Ewvai7392-63-56 07:08:00* Test Item Value Reference Range Interpretation Comments Sodium Level (test code = 2951-2) 134 136-145 L [facility] CampusPotassium Jljsa1533-57-79 07:08:00* Test Item Value Reference Range Interpretation Comments Potassium Level (test code = 2823-3) 4.2 3.5-5.1 [facility] CampusChloride Unrvk0589-24-52 07:08:00* Test Item Value Reference Range Interpretation Comments Chloride Level (test code = 2075-0) 104 98-107 [facility] CampusCarbon Dioxide Mxfym6340-50-33 07:08:00* Test Item Value Reference Range Interpretation Comments Carbon Dioxide Level (test code = 2028-9) 23 22-29 [facility] CampusAnion Pdf4376-03-34 07:08:00* Test Item Value Reference Range Interpretation Comments Anion Gap (test code = 73334-0) 11.2 8-16 [facility] CampusBlood Urea Jpejlfcx7486-85-34 07:08:00* Test Item Value Reference Range Interpretation Comments Blood Urea Nitrogen (test code = 3094-0) 19 7-26 [facility] CampusCreatinine2018-08-25 07:08:00* Test Item Value Reference Range Interpretation Comments Creatinine (test code = 2160-0) 0.88 0.57-1.11 [facility] CampusBUN/Creatinine Yxkil0409-45-45 07:08:00* Test Item Value Reference Range Interpretation Comments BUN/Creatinine Ratio (test code = 3097-3) 22 03-03 [facility] CampusEstimat Glomerular Filtration Rate 2018-05-03 07:08:00* Test Item Value Reference Range Interpretation Comments Estimat Glomerular Filtration Rate (test code = 51414-4) 60- >60 Ranges were taken from the National Kidney Disease Education Program and the [facility] Kidney Foundation literature.Reference ranges:60 or greater: Oivxkr41-24 ( for 3 consecutive months): Chronic kidney disease 15 or less: Kidney failureCHI [facility] SouthGlucose Zitjj3817-12-38 07:08:00* Test Item Value Reference Range Interpretation Comments Glucose Level (test code = YJD6228) 100 74-118 [facility] CampusCalcium Svvun0145-83-33 07:08:00* Test Item Value Reference Range Interpretation Comments Calcium Level (test code = 81591-1) 8.5 8.4-10.2 [facility] CampusWhite Blood Pqybk3850-06-11 06:46:00* Test Item Value Reference Range Interpretation Comments White Blood Count (test code = 6690-2) 4.82 4.8-10.8 [facility] CampusRed Blood Cwmqe3100-59-52 06:46:00* Test Item Value Reference Range Interpretation Comments Red Blood Count (test code = 789-8) 2.77 3.6-5.1 L [facility] CampusHemoglobin2018-08-25 06:46:00* Test Item Value Reference Range Interpretation Comments Hemoglobin (test code = 23536-6) 8.5 12.0-16.0 L [facility] CampusHematocrit2018-08-25 06:46:00* Test Item Value Reference Range Interpretation Comments Hematocrit (test code = 4544-3) 25.9 34.2-44.1 L [facility] CampusMean Corpuscular Pktxnf6563-87-79 06:46:00* Test Item Value Reference Range Interpretation Comments Mean Corpuscular Volume (test code = 787-2) 93.5 81-99 [facility] CampusMean Corpuscular Pmvfelxeed4182-46-82 06:46:00* Test Item Value Reference Range Interpretation Comments Mean Corpuscular Hemoglobin (test code = 785-6) 30.7 28-32 [facility] CampusMean Corpuscular Hemoglobin Concent 2018-05-03 06:46:00* Test Item Value Reference Range Interpretation Comments Mean Corpuscular Hemoglobin Concent (test code = 786-4) 32.8 31-35 [facility] CampusRed Cell Distribution Avhax2030-97-48 06:46:00* Test Item Value Reference Range Interpretation Comments Red Cell Distribution Width (test code = 24346-7) 14.1 11.7 -14.4 [facility] CampusPlatelet Tmatd8451-17-93 06:46:00* Test Item Value Reference Range Interpretation Comments Platelet Count (test code = 777-3) 204 140-360 [facility] CampusNeutrophils (%) (Auto)2018-05-03 06:46:00 * Test Item Value Reference Range Interpretation Comments Neutrophils (%) (Auto) (test code = 57844-7) 59.1 38.7-80.0 [facility] CampusLymphocytes (%) (Auto)2018-05-03 06:46:00 * Test Item Value Reference Range Interpretation Comments Lymphocytes (%) (Auto) (test code = 736-9) 35.7 18.0-39.1 [facility] CampusMonocytes (%) (Auto)2018-05-03 06:46:00* Test Item Value Reference Range Interpretation Comments Monocytes (%) (Auto) (test code = 5905-5) 4.6 4.4-11.3 [facility] CampusEosinophils (%) (Auto)2018-05-03 06:46:00 * Test Item Value Reference Range Interpretation Comments Eosinophils (%) (Auto) (test code = 713-8) 0.2 0.0-6.0 [facility] CampusBasophils (%) (Auto)2018-05-03 06:46:00* Test Item Value Reference Range Interpretation Comments Basophils (%) (Auto) (test code = 706-2) 0.2 0.0-1.0 [facility] CampusIM GRANULOCYTES %2018-05-03 06:46:00* Test Item Value Reference Range Interpretation Comments IM GRANULOCYTES % (test code = IM GRANULOCYTES %) 0.2 0.0- 1.0 [facility] CampusNeutrophils # (Auto)2018-05-03 06:46:00* Test Item Value Reference Range Interpretation Comments Neutrophils # (Auto) (test code = 751-8) 2.9 2.1-6.9 [facility] CampusLymphocytes # (Auto)2018-05-03 06:46:00* Test Item Value Reference Range Interpretation Comments Lymphocytes # (Auto) (test code = 04356-7) 1.7 1.0-3.2 [facility] CampusMonocytes # (Auto)2018-05-03 06:46:00* Test Item Value Reference Range Interpretation Comments Monocytes # (Auto) (test code = 742-7) 0.2 0.2-0.8 [facility] CampusEosinophils # (Auto)2018-05-03 06:46:00* Test Item Value Reference Range Interpretation Comments Eosinophils # (Auto) (test code = 711-2) 0.0 0.0-0.4 [facility] CampusBasophils # (Auto)2018-05-03 06:46:00* Test Item Value Reference Range Interpretation Comments Basophils # (Auto) (test code = 704-7) 0.0 0.0-0.1 [facility] CampusAbsolute Immature Granulocyte (auto 2018-05-03 06:46:00* Test Item Value Reference Range Interpretation Comments Absolute Immature Granulocyte (auto (dana t code = Absolute Immature Granulocyte (auto) 0.01 0-0.1 [facility] CampusUrine Rvgf6776-74-23 09:56:00* Test Item Value Reference Range Interpretation Comments Urine Test (test code = 2106-3) NEGATIVE NEGATIVE [facility] CampusUrine Xdos8046-13-06 09:56:00* Test Item Value Reference Range Interpretation Comments Urine Test (test code = 2106-3) NEGATIVE NEGATIVE [facility] CampusVitamin B12 Zehkw1212-34-83 08:03:00* Test Item Value Reference Range Interpretation Comments Vitamin B12 Level (test code = 14092-2) 560 213-816 [facility] CampusFolate2018-08-23 08:03:00* Test Item Value Reference Range Interpretation Comments Folate (test code = 2284-8) 7.6 7.0-15.4 [facility] CampusVitamin B12 Lgale1931-31-88 08:03:00* Test Item Value Reference Range Interpretation Comments Vitamin B12 Level (test code = 51043-1) 560 213-816 [facility] CampusFolate2018-08-23 08:03:00* Test Item Value Reference Range Interpretation Comments Folate (test code = 2284-8) 7.6 7.0-15.4 [facility] CampusVitamin B12 Zisvi9057-26-18 08:03:00* Test Item Value Reference Range Interpretation Comments Vitamin B12 Level (test code = 76600-4) 560 213-816 [facility] CampusFolate2018-08-23 08:03:00* Test Item Value Reference Range Interpretation Comments Folate (test code = 2284-8) 7.6 7.0-15.4 [facility] CampusVitamin B12 Cswhf1212-33-71 08:03:00* Test Item Value Reference Range Interpretation Comments Vitamin B12 Level (test code = 15709-8) 560 213-816 [facility] CampusFolate2018-08-23 08:03:00* Test Item Value Reference Range Interpretation Comments Folate (test code = 2284-8) 7.6 7.0-15.4 [facility] CampusDifferential Total Cells Counted 2018-05-01 07:51:00* Test Item Value Reference Range Interpretation Comments Differential Total Cells Counted (test code = Differen tial Total Cells Counted) 100 [facility] CampusNeutrophils % (Manual)2018-05-01 07:51:00 * Test Item Value Reference Range Interpretation Comments Neutrophils % (Manual) (test code = 90856-5) 61 40-74 [facility] CampusLymphocytes % (Manual)2018-05-01 07:51:00 * Test Item Value Reference Range Interpretation Comments Lymphocytes % (Manual) (test code = 737-7) 31 19-48 [facility] CampusMonocytes % (Manual)2018-05-01 07:51:00* Test Item Value Reference Range Interpretation Comments Monocytes % (Manual) (test code = 744-3) 6 3.4-9.0 [facility] CampusEosinophils % (Manual)2018-05-01 07:51:00 * Test Item Value Reference Range Interpretation Comments Eosinophils % (Manual) (test code = 714-6) 1 0-7 [facility] CampusMyelocytes %2018-05-01 07:51:00* Test Item Value Reference Range Interpretation Comments Myelocytes % (test code = 749-2) 1 0-0 H [facility] CampusPlatelet Jdgnrtoo8428-55-87 07:51:00* Test Item Value Reference Range Interpretation Comments Platelet Estimate (test code = 80458-9) ADEQUATE [facility] CampusPlatelet Morphology Celgpvm5185-10-78 07:51:00* Test Item Value Reference Range Interpretation Comments Platelet Morphology Comment (test code = 24393-1) NORMAL [facility] CampusHypochromasia2018-08-23 07:51:00* Test Item Value Reference Range Interpretation Comments Hypochromasia (test code = 728-6) MODERATE [facility] CampusRed Cell Morphology Xozmlyi3285-61-80 07:51:00* Test Item Value Reference Range Interpretation Comments Red Cell Morphology Comment (test code = 6742-1) NORMAL [facility] CampusDifferential Total Cells Counted 2018-05-01 07:51:00* Test Item Value Reference Range Interpretation Comments Differential Total Cells Counted (test code = Differen tial Total Cells Counted) 100 [facility] CampusNeutrophils % (Manual)2018-05-01 07:51:00 * Test Item Value Reference Range Interpretation Comments Neutrophils % (Manual) (test code = 88486-2) 61 40-74 [facility] CampusLymphocytes % (Manual)2018-05-01 07:51:00 * Test Item Value Reference Range Interpretation Comments Lymphocytes % (Manual) (test code = 737-7) 31 19-48 [facility] CampusMonocytes % (Manual)2018-05-01 07:51:00* Test Item Value Reference Range Interpretation Comments Monocytes % (Manual) (test code = 744-3) 6 3.4-9.0 [facility] CampusEosinophils % (Manual)2018-05-01 07:51:00 * Test Item Value Reference Range Interpretation Comments Eosinophils % (Manual) (test code = 714-6) 1 0-7 [facility] CampusMyelocytes %2018-05-01 07:51:00* Test Item Value Reference Range Interpretation Comments Myelocytes % (test code = 749-2) 1 0-0 H [facility] CampusPlatelet Gtqxomaq4464-35-85 07:51:00* Test Item Value Reference Range Interpretation Comments Platelet Estimate (test code = 49073-3) ADEQUATE [facility] CampusPlatelet Morphology Rezapxg2241-25-78 07:51:00* Test Item Value Reference Range Interpretation Comments Platelet Morphology Comment (test code = 06316-8) NORMAL [facility] CampusHypochromasia2018-08-23 07:51:00* Test Item Value Reference Range Interpretation Comments Hypochromasia (test code = 728-6) MODERATE [facility] CampusRed Cell Morphology Vdpllsj9180-66-40 07:51:00* Test Item Value Reference Range Interpretation Comments Red Cell Morphology Comment (test code = 6742-1) NORMAL [facility] CampusDifferential Total Cells Counted 2018-05-01 07:51:00* Test Item Value Reference Range Interpretation Comments Differential Total Cells Counted (test code = Differen tial Total Cells Counted) 100 [facility] CampusNeutrophils % (Manual)2018-05-01 07:51:00 * Test Item Value Reference Range Interpretation Comments Neutrophils % (Manual) (test code = 78217-5) 61 40-74 [facility] CampusLymphocytes % (Manual)2018-05-01 07:51:00 * Test Item Value Reference Range Interpretation Comments Lymphocytes % (Manual) (test code = 737-7) 31 19-48 [facility] CampusMonocytes % (Manual)2018-05-01 07:51:00* Test Item Value Reference Range Interpretation Comments Monocytes % (Manual) (test code = 744-3) 6 3.4-9.0 [facility]Eosin[facility] % (Manual)2018-05-01 07:51:00 * Test Item Value Reference Range Interpretation Comments Eosinophils % (Manual) (test code = 714-6) 1 0-7 [facility]Myelocytes %2018-05-01 07:51:00* Test Item Value Reference Range Interpretation Comments Myelocytes % (test code = 749-2) 1 0-0 H [facility] CampusPlatelet Giselgfo8877-12-26 07:51:00* Test Item Value Reference Range Interpretation Comments Platelet Estimate (test code = 72523-6) ADEQUATE [facility] CampusPlatelet Morphology Uobciwg4276-13-46 07:51:00* Test Item Value Reference Range Interpretation Comments Platelet Morphology Comment (test code = 61773-9) NORMAL [facility] CampusHypochromasia2018-08-23 07:51:00* Test Item Value Reference Range Interpretation Comments Hypochromasia (test code = 728-6) MODERATE [facility] CampusRed Cell Morphology Byjpuki4593-12-88 07:51:00* Test Item Value Reference Range Interpretation Comments Red Cell Morphology Comment (test code = 6742-1) NORMAL [facility] CampusDifferential Total Cells Counted 2018-05-01 07:51:00* Test Item Value Reference Range Interpretation Comments Differential Total Cells Counted (test code = Differbrigid tial Total Cells Counted) 100 [facility]Neutrophils % (Manual)2018-05-01 07:51:00 * Test Item Value Reference Range Interpretation Comments Neutrophils % (Manual) (test code = 96684-4) 61 40-74 [facility]Lymphocytes % (Manual)2018-05-01 07:51:00 * Test Item Value Reference Range Interpretation Comments Lymphocytes % (Manual) (test code = 737-7) 31 19-48 [facility]Monocytes % (Manual)2018-05-01 07:51:00* Test Item Value Reference Range Interpretation Comments Monocytes % (Manual) (test code = 744-3) 6 3.4-9.0 [facility]Eosinophils % (Manual)2018-05-01 07:51:00 * Test Item Value Reference Range Interpretation Comments Eosinophils % (Manual) (test code = 714-6) 1 0-7 [facility]Myelocytes %2018-05-01 07:51:00* Test Item Value Reference Range Interpretation Comments Myelocytes % (test code = 749-2) 1 0-0 H [facility] CampusPlatelet Nrrkcegi0625-07-73 07:51:00* Test Item Value Reference Range Interpretation Comments Platelet Estimate (test code = 15246-9) ADEQUATE [facility] CampusPlatelet Morphology Qrvtsbd3745-74-89 07:51:00* Test Item Value Reference Range Interpretation Comments Platelet Morphology Comment (test code = 53701-9) NORMAL [facility] CampusHypochromasia2018-08-23 07:51:00* Test Item Value Reference Range Interpretation Comments Hypochromasia (test code = 728-6) MODERATE [facility] CampusRed Cell Morphology Wtfjlsg4663-57-67 07:51:00* Test Item Value Reference Range Interpretation Comments Red Cell Morphology Comment (test code = 6742-1) NORMAL [facility] CampusFerritin2018-08-23 07:50:00* Test Item Value Reference Range Interpretation Comments Ferritin (test code = 2276-4) 203.96 4.63-204.00 [facility] CampusFerritin2018-08-23 07:50:00* Test Item Value Reference Range Interpretation Comments Ferritin (test code = 2276-4) 203.96 4.63-204.00 [facility] CampusFerritin2018-08-23 07:50:00* Test Item Value Reference Range Interpretation Comments Ferritin (test code = 2276-4) 203.96 4.63-204.00 [facility] CampusFerritin2018-08-23 07:50:00* Test Item Value Reference Range Interpretation Comments Ferritin (test code = 2276-4) 203.96 4.63-204.00 [facility]2018-08-23 07:17:00* Test Item Value Reference Range Interpretation Comments Iron Level (test code = 2498-4) 15 50-170 L [facility] Binding Swcuszso2661-41-44 07:17:00* Test Item Value Reference Range Interpretation Comments Total Iron Binding Capacity (test code = 2500-7) 221 261-4 78 L [facility] CampusPercent Iron Ncnmqaqbeu7468-05-71 07:17:00* Test Item Value Reference Range Interpretation Comments Percent Iron Saturation (test code = 2502-3) 7 15-50 L [facility] CampusTransferrin2018-08-23 07:17:00* Test Item Value Reference Range Interpretation Comments Transferrin (test code = 3034-6) 158 180-382 L [facility]2018-08-23 07:17:00* Test Item Value Reference Range Interpretation Comments Iron Level (test code = 2498-4) 15 50-170 L [facility] Iron Binding Dsmuwktx7628-74-76 07:17:00* Test Item Value Reference Range Interpretation Comments Total Iron Binding Capacity (test code = 2500-7) 221 261-4 78 L [facility]Percent Iron Pmpofcotcp9213-03-53 07:17:00* Test Item Value Reference Range Interpretation Comments Percent Iron Saturation (test code = 2502-3) 7 15-50 L [facility] CampusTransferrin2018-08-23 07:17:00* Test Item Value Reference Range Interpretation Comments Transferrin (test code = 3034-6) 158 180-382 L [facility]2018-08-23 07:17:00* Test Item Value Reference Range Interpretation Comments Iron Level (test code = 2498-4) 15 50-170 L [facility] CampusTotal Iron Binding Msrygymh7893-92-92 07:17:00* Test Item Value Reference Range Interpretation Comments Total Iron Binding Capacity (test code = 2500-7) 221 261-4 78 L [facility]Percent Iron Goqzcqfyiv7300-84-37 07:17:00* Test Item Value Reference Range Interpretation Comments Percent Iron Saturation (test code = 2502-3) 7 15-50 L [facility] CampusTransferrin2018-08-23 07:17:00* Test Item Value Reference Range Interpretation Comments Transferrin (test code = 3034-6) 158 180-382 L [facility] CampusIron Zmgek8026-63-24 07:17:00* Test Item Value Reference Range Interpretation Comments Iron Level (test code = 2498-4) 15 50-170 L [facility] Iron Binding Hqyihffe4214-41-21 07:17:00* Test Item Value Reference Range Interpretation Comments Total Iron Binding Capacity (test code = 2500-7) 221 261-4 78 L [facility]Percent Iron Qerqvdlucb2925-70-33 07:17:00* Test Item Value Reference Range Interpretation Comments Percent Iron Saturation (test code = 2502-3) 7 15-50 L [facility] CampusTransferrin2018-08-23 07:17:00* Test Item Value Reference Range Interpretation Comments Transferrin (test code = 3034-6) 158 180-382 L [facility] CampusThyroid Stimulating Hormone (TSH) 2018-04-29 19:02:00* Test Item Value Reference Range Interpretation Comments Thyroid Stimulating Hormone (TSH) (test code = 82299-5) 2.675 0.350-4.940 [facility] CampusAnisocytosis2018-08-21 07:29:00* Test Item Value Reference Range Interpretation Comments Anisocytosis (test code = 702-1) SLIGHT [facility] CampusAnisocytosis2018-08-21 07:29:00* Test Item Value Reference Range Interpretation Comments Anisocytosis (test code = 702-1) SLIGHT [facility] CampusAnisocytosis2018-08-21 07:29:00* Test Item Value Reference Range Interpretation Comments Anisocytosis (test code = 702-1) SLIGHT [facility] CampusAnisocytosis2018-08-21 07:29:00* Test Item Value Reference Range Interpretation Comments Anisocytosis (test code = 702-1) SLIGHT [facility] CampusTotal Omempcmsz7629-11-10 07:27:00* Test Item Value Reference Range Interpretation Comments Total Bilirubin (test code = 1975-2) 0.4 0.2-1.2 [facility] CampusAspartate Amino Transf (AST/SGOT) 2018-04-29 07:27:00* Test Item Value Reference Range Interpretation Comments Aspartate Amino Transf (AST/SGOT) (test code = Aspartate Amino Transf (AST/SGOT)) 20 5-34 [facility] CampusAlanine Aminotransferase (ALT/SGPT) 2018-04-29 07:27:00* Test Item Value Reference Range Interpretation Comments Alanine Aminotransferase (ALT/SGPT) (test code = 1742-6) 10 0-55 [facility] CampusTotal Wzrjfbv0877-29-22 07:27:00* Test Item Value Reference Range Interpretation Comments Total Protein (test code = 2885-2) 8.8 6.5-8.1 H [facility] CampusAlbumin2018-08-21 07:27:00* Test Item Value Reference Range Interpretation Comments Albumin (test code = 1751-7) 3.0 3.5-5.0 L [facility] CampusGlobulin2018-08-21 07:27:00* Test Item Value Reference Range Interpretation Comments Globulin (test code = 06756-7) 5.8 2.3-3.5 H [facility] CampusAlbumin/Globulin Nfgmt0090-99-27 07:27:00 * Test Item Value Reference Range Interpretation Comments Albumin/Globulin Ratio (test code = 1759-0) 0.5 0.8-2.0 L [facility] CampusAlkaline Cwhmaklonfe6711-90-47 07:27:00* Test Item Value Reference Range Interpretation Comments Alkaline Phosphatase (test code = 6768-6) 14 40-150 L [facility] CampusTriglycerides Owlbv3052-61-36 07:27:00* Test Item Value Reference Range Interpretation Comments Triglycerides Level (test code = 2571-8) 65 0-149 [facility] CampusCholesterol Wfkiv2035-91-11 07:27:00* Test Item Value Reference Range Interpretation Comments Cholesterol Level (test code = 2093-3) 99 0-199 Less than 200 mg/dL Low Btsv373 - 239 mg/dL Borderline Okgn202 m g/dl and greater High Risk [facility] CampusLDL Wkztiznpsjo3377-58-21 07:27:00* Test Item Value Reference Range Interpretation Comments LDL Cholesterol (test code = 2089-1) 57 60-130 L [facility] Ohdivawgccr6250-76-47 07:27:00* Test Item Value Reference Range Interpretation Comments HDL Cholesterol (test code = 2085-9) 29 40-60 L [facility] CampusCholesterol/HDL Oiakn9993-37-00 07:27:00 * Test Item Value Reference Range Interpretation Comments Cholesterol/HDL Ratio (test code = 9830-1) 3.4 3.0-3.6 [facility] CampusTriglycerides Xhqmw9150-73-42 07:27:00* Test Item Value Reference Range Interpretation Comments Triglycerides Level (test code = 2571-8) 65 0-149 [facility] CampusCholesterol Nujko8852-09-97 07:27:00* Test Item Value Reference Range Interpretation Comments Cholesterol Level (test code = 2093-3) 99 0-199 Less than 200 mg/dL Low Rocw107 - 239 mg/dL Borderline Vdgp179 m g/dl and greater High Risk [facility] CampusLDL Buxnzlmjjja9515-29-43 07:27:00* Test Item Value Reference Range Interpretation Comments LDL Cholesterol (test code = 2089-1) 57 60-130 L [facility] Peyxnnouzgy5164-18-02 07:27:00* Test Item Value Reference Range Interpretation Comments HDL Cholesterol (test code = 2085-9) 29 40-60 L [facility] CampusCholesterol/HDL Pqwpt1117-20-65 07:27:00 * Test Item Value Reference Range Interpretation Comments Cholesterol/HDL Ratio (test code = 9830-1) 3.4 3.0-3.6 [facility] CampusTriglycerides Gkczo3447-41-12 07:27:00* Test Item Value Reference Range Interpretation Comments Triglycerides Level (test code = 2571-8) 65 0-149 [facility] CampusCholesterol Lechy6102-52-31 07:27:00* Test Item Value Reference Range Interpretation Comments Cholesterol Level (test code = 2093-3) 99 0-199 Less than 200 mg/dL Low Vjnf673 - 239 mg/dL Borderline Kkrv960 m g/dl and greater High Risk [facility] CampusLDL Fsqusjmwohp9640-87-19 07:27:00* Test Item Value Reference Range Interpretation Comments LDL Cholesterol (test code = 2089-1) 57 60-130 L [facility] CampusHDL Itdyhqzkhyh2369-59-32 07:27:00* Test Item Value Reference Range Interpretation Comments HDL Cholesterol (test code = 2085-9) 29 40-60 L [facility] CampusCholesterol/HDL Mmacz9921-04-43 07:27:00 * Test Item Value Reference Range Interpretation Comments Cholesterol/HDL Ratio (test code = 9830-1) 3.4 3.0-3.6 [facility] CampusTriglycerides Mffco2366-84-55 07:27:00* Test Item Value Reference Range Interpretation Comments Triglycerides Level (test code = 2571-8) 65 0-149 [facility] CampusCholesterol Wuysf0079-23-95 07:27:00* Test Item Value Reference Range Interpretation Comments Cholesterol Level (test code = 2093-3) 99 0-199 Less than 200 mg/dL Low Xpgy706 - 239 mg/dL Borderline Bgdq990 m g/dl and greater High Risk [facility] CampusLDL Xjpfdoekiqd4483-16-21 07:27:00* Test Item Value Reference Range Interpretation Comments LDL Cholesterol (test code = 2089-1) 57 60-130 L [facility] CampusHDL Odehqusayey4668-36-39 07:27:00* Test Item Value Reference Range Interpretation Comments HDL Cholesterol (test code = 2085-9) 29 40-60 L [facility] CampusCholesterol/HDL Isydf7613-40-33 07:27:00 * Test Item Value Reference Range Interpretation Comments Cholesterol/HDL Ratio (test code = 9830-1) 3.4 3.0-3.6 [facility] CampusHemoglobin A1c Labfity7832-23-27 07:26:00 * Test Item Value Reference Range Interpretation Comments Hemoglobin A1c Percent (test code = Hemoglobin A1c Percent) 5.0 4.0-7.0 [facility] CampusHemoglobin A1c Lcywteq1298-39-24 07:26:00 * Test Item Value Reference Range Interpretation Comments Hemoglobin A1c Percent (test code = Hemoglobin A1c Percent) 5.0 4.0-7.0 [facility] CampusHemoglobin A1c Onercvz4278-07-59 07:26:00 * Test Item Value Reference Range Interpretation Comments Hemoglobin A1c Percent (test code = Hemoglobin A1c Percent) 5.0 4.0-7.0 [facility] CampusHemoglobin A1c Zkeyiqf0022-98-07 07:26:00 * Test Item Value Reference Range Interpretation Comments Hemoglobin A1c Percent (test code = Hemoglobin A1c Percent) 5.0 4.0-7.0 [facility] CampusProthrombin Gqxy0167-77-46 18:29:00* Test Item Value Reference Range Interpretation Comments Prothrombin Time (test code = 5902-2) 14.4 11.9-14.5 [facility] CampusProthromb Time International Ratio 2018-04-28 18:29:00* Test Item Value Reference Range Interpretation Comments Prothromb Time International Ratio (test code = 6301-6) 1.21 Oral Anticoagulant Therapy INR Values:1. Low Intensity Therapy 1.5 - 2.02 . Moderate Intensity Therapy 2.0 - 3.03. High Intensity Therapy(1) 2.5 - 3. 54. High Intensity Therapy(2) 3.0 - 4.05. Panic Value INR > 5.0 [facility] CampusActivated Partial Thromboplast Time 2018-04-28 18:29:00* Test Item Value Reference Range Interpretation Comments Activated Partial Thromboplast Time (test code = 79477-2) 26.6 23.8-35.5 [facility] CampusProthrombin Lwmq2525-70-70 18:29:00* Test Item Value Reference Range Interpretation Comments Prothrombin Time (test code = 5902-2) 14.4 11.9-14.5 [facility] CampusProthromb Time International Ratio 2018-04-28 18:29:00* Test Item Value Reference Range Interpretation Comments Prothromb Time International Ratio (test code = 6301-6) 1.21 Oral Anticoagulant Therapy INR Values:1. Low Intensity Therapy 1.5 - 2.02 . Moderate Intensity Therapy 2.0 - 3.03. High Intensity Therapy(1) 2.5 - 3. 54. High Intensity Therapy(2) 3.0 - 4.05. Panic Value INR > 5.0 [facility] CampusActivated Partial Thromboplast Time 2018-04-28 18:29:00* Test Item Value Reference Range Interpretation Comments Activated Partial Thromboplast Time (test code = 35137-1) 26.6 23.8-35.5 [facility] CampusProthrombin Xnbv4704-16-14 18:29:00* Test Item Value Reference Range Interpretation Comments Prothrombin Time (test code = 5902-2) 14.4 11.9-14.5 [facility] CampusProthromb Time International Ratio 2018-04-28 18:29:00* Test Item Value Reference Range Interpretation Comments Prothromb Time International Ratio (test code = 6301-6) 1.21 Oral Anticoagulant Therapy INR Values:1. Low Intensity Therapy 1.5 - 2.02 . Moderate Intensity Therapy 2.0 - 3.03. High Intensity Therapy(1) 2.5 - 3. 54. High Intensity Therapy(2) 3.0 - 4.05. Panic Value INR > 5.0 [facility] CampusActivated Partial Thromboplast Time 2018-04-28 18:29:00* Test Item Value Reference Range Interpretation Comments Activated Partial Thromboplast Time (test code = 50697-6) 26.6 23.8-35.5 [facility]
[2020-05-11 15:49] LABS: INR 1.04; PROTHROMBIN TIME 14.1 seconds (11.9-14.5)
[2020-05-11 15:53] LABS: ALANINE AMINOTRANSFERASE 19 IU/L (0-55); ALBUMIN 3.5 g/dL (3.5-5.0); ALBUMIN/GLOBULIN RATIO 0.6 (0.8-2.0); ALKALINE PHOSPHATASE 21 IU/L (40-150); BLOOD UREA NITROGEN 13 mg/dL (7-26); BUN/CREATININE RATIO 11 (6-25); CALCIUM 8.1 mg/dL (8.4-10.2); CARBON DIOXIDE 21 mmol/L (22-29); CHLORIDE 107 mmol/L (98-107); CREATININE, SERUM 1.16 mg/dL (0.57-1.11); EST GLOMERULAR FILTRATION RATE > 60 ML/MIN (60-); GLUCOSE 117 mg/dL (74-118); SODIUM 137 mmol/L (136-145)
--- NOTE | 2020-05-11 15:56 | NUR ---
TXA RECEIVED FROM PHARMACY. PER MD MITCH LUNA, SATURATE GAUZE IN TXA AND PLACE DIRECTLY TO GUM SOCKET FROM TOOTH EXTRACTION. INSTRUCTED PATIENT TO BITE FIRMLY ON GAUZE IN ORDER TO HOLD PRESSURE TO BLEEDING SOCKET. PT VERBALIZED AN UNDERSTANDING. WILL CONTINUE TO MONITOR.
[2020-05-11 16:00] LABS: PLATELET COUNT 1 x10e3/uL (140-360)
[2020-05-11] MEDS ORDERED: TRANEXAMIC ACID 1,000 MG/10 ML ML INJ ONE (16:00)
--- NOTE | 2020-05-11 16:06 | NUR ---
critical labs received, platelet count of 1000, Marilyn PASTOR notified, Dr. Penaloza notified
[2020-05-11 16:11] LABS: HYPOCHROMASIA SLIGHT; POLYCHROMASIA FEW
[2020-05-11 16:12] LABS: PLATELET ESTIMATE MARKEDLY DECREASED
[2020-05-11] MEDS ORDERED: PREDNISONE 20 MG TAB PO ONE (16:15)
--- OUTSIDE RECORDS SUMMARY | 2020-05-11 16:52 | XMS REPORT | Continuity of Care Document ---
Author Author [facility] t Organization [facility] t Address [address] [place] [address] Phone Unavailable Care Team Providers Care [employer] Former Supervisor Name Role Phone KATE MACHADO, MD NOVAK PCP ERIC VAZQUEZ Attphys Unavailable Elvis RICH Attphys Unavailable MARY MCKAY Attphys Unavailable Mónica COBURN Attphys Unavailable ELIAS DOSS Admphys Unavailable Payers Payer Name Policy Type Policy Number Effective Date Expiration Date S [facility] [employer] [place] [employer] [id number] 2018 00:00:00 [facility] Problems Condition Name Condition Details Condition Category Status Onset Date Resolution Date Last Treatment Date Treating Clinician Comments Source Torsion of ovary Ovarian torsion Problem Active [facility] Spontaneous Problem Active [facility] Allergies, Adverse Reactions, Alerts Allergy Name Allergy Type Status Severity Reaction(s) Onset Date Inacti ve Date Treating Clinician Comments Source levofloxacin DA Active U 2019-12-11 00:00:00 [facility] Levofloxacin Allergy to substance Active Severe THROAT SWELLS 2018-04-28 00:00:00 [facility] levofloxacin DA Active MO 2018-01-04 00:00:00 [facility] Social History Social Habit Start Date Stop Date Quantity Comments Source Sex Assigned At 1990 00:00:00 1990 00:00:00 Female [facility] Medications Ordered Medication Name Filled Medication Name Start Date Stop Da te Current Medication? Ordering Clinician Indication Dosage Frequency Signature (SIG) Comments Components Source Tramadol Hcl (Ultram) 50 Mg TABLET Tramadol Hcl (Ultram) 50 Mg TABLET 2020-02-25 12:46:00 Yes 50 Every 6 Hours as needed for A bdominal Pain [facility] Famotidine (Pepcid) 20 Mg TABLET Famotidine (Pepcid) 20 Mg T ABLET 2018-05-03 06:43:00 Yes 20 Twice A Day [facility] Ferrous Sulfate Ferrous Sulfate 2018-05-03 06:43:00 Yes 325 Twice Daily With Meals [facility] Labetalol Hcl Labetalol Hcl 2018-05-03 06:43:00 Yes 20 0 Every 12 Hours [facility] Nifedipine (Nifedipine Er) 30 Mg TAB.ER.24 Nifedipine (Nifedipine Er) 30 Mg TAB.ER.24 2018-05-03 06:43:00 Yes 60 Every 12 Hours [facility] Ondansetron (Zofran Odt) 4 Mg TAB.[facility] Ondansetron ( Zofran Odt) 4 Mg TAB.RAPDIS 2018-05-03 06:43:00 Yes 4 Q4-6H Prn [facility] Acetaminophen With Codeine (Tylenol With Codeine #3 Ta blet) 1 Each TABLET Acetaminophen With Codeine (Tylenol With Codeine #3 Tablet) 1 Each TABLET Yes 300 As Needed [facility] Azithromycin (Z-Feroz) 250 Mg TABLET Azithromycin (Z-Feroz) 250 Mg TABLET Yes 250 Use As Directed [facility] Cefdinir Cefdinir Yes 300 Daily [facility] Vital Signs Vital Name Observation Time Observation Value Comments Source Weight 2020-02-25 09:14:00 268 [lb_av] [facility] BMI (Body Mass Index) 2020-02-25 09:14:00 42.0 kg/m2 [facility] Body Temperature 2019-12-02 17:10:00 98.4 [degF] [facility] Procedures Procedure Date / Time Performed Performing Clinician Jose marquez Computed tomography of chest with contrast 2019-11-27 00:00:00 ERIC ORTIZ [facility] X-ray of chest, single view 2019-11-24 00:00:00 PETRA RICH [facility] Complete non-obstetrical ultrasound of pelvis 2019-07-22 00: 00:00 [place] RIVERAJOSE MANUEL [facility] Computed tomography of abdomen and pelvis with contrast 2018 00:00:00 JOSE MANUEL COBURN [facility] US transvaginal 2019-07-22 00:00:00 [facility] Limited Doppler ultrasound of vessels of pelvis 2019-07-22 0 0:00:00 JOSE MANUEL COBURN [facility] LAPAROSCOPY REMOVE ADNEXA 2019-07-22 00:00:00 [facility] Plan of Care Planned Activity Planned Date Details Comments Source Instructions Spontaneous [facility] Instructions Dysmenorrhea [facility] Instructions Abnormal Uterine Bleeding [facility] Encounters Start Date/Time End Date/Time Encounter Type Admission Type Att[facility] Care Department Encounter ID Source 2020-02-25 09:11:00 2020-02-25 13:00:00 Departed Emergency Room [facility] [id number] [facility] Me dical [place] 2019-11-28 07:55:00 2019-12-02 19:20:00 Discharged Inpatient 1 ERIC VAZQUEZ [facility] [id number] [facility] 2019-11-24 20:23:00 2019-11-24 23:34:00 Departed Emergency Room 1 JONO RICH [facility] [id number] [facility] 2019-11-23 18:09:00 2019-11-23 21:38:00 Departed Emergency Room 1 MARY MCKAY [facility] [id number] [facility] 2019-07-22 10:13:00 2019-07-24 09:09:00 Discharged Inpatient (obs) 1 JOSE MANUEL COBURN [facility] [id number] [facility] 2019-02-09 18:52:00 2019-02-09 23:23:00 Departed Emergency Room 1 JOSE MANUEL COBURN [facility] [id number] [facility] 2018-12-14 23:09:00 2018-12-15 01:02:00 Departed Emergency Room [facility] [id number] [facility] 2018-07-29 10:29:00 2018-07-29 15:15:00 Departed Emergency Room [facility] [id number] [facility] 2018-04-30 15:59:00 2018-05-03 12:47:00 Discharged Inpatient [facility] [id number] [facility] Results Test Description Test Time Test Comments Results Result Comments Source Blood leukocytes automated count (number/volume) 2020-02-25 09:20:00 Test Item White Blood Count (test code = 6690-2) 7.68 4.8-10.8 [facility] automated count (number/volume)2020-02-25 09:20:00* Test Item Value Reference Range Interpretation Comments Red Blood Count (test code = 789-8) 3.96 3.6-5.1 [facility] hemoglobin measurement (moles/volume)2020-02-25 09:20:00* Test Item Value Reference Range Interpretation Comments Hemoglobin (test code = 74093-6) 10.8 12.0-16.0 [facility] Hospital[facility] blood hematocrit (volume fraction)2020-02-25 09:20:00* Test Item Value Reference Range Interpretation Comments Hematocrit (test code = 4544-3) 34.4 34.2-44.1 [facility] HospitalAutomated erythrocyte mean corpuscular [id number] 09:20:00* Test Item Value Reference Range Interpretation Comments Mean Corpuscular Volume (test code = 787-2) 86.9 81-99 [facility] HospitalAutom[facility] erythrocyte mean corpuscular hemoglobin (mass per erythrocyte)2020-02-25 09:20:00* Test Item Value Reference Range Interpretation Comments Mean Corpuscular Hemoglobin (test code = 785-6) 27.3 28-32 [facility] HospitalAutom[facility] erythrocyte mean corpuscular hemoglobin concentration measurement (mass/volume)2020-02-25 09:20:00* Test Item Value Reference Range Interpretation Comments Mean Corpuscular Hemoglobin Concent (test code = 786-4) 31.4 31-35 [facility] HospitalRDW UjqNc-Abf5171-04-18 09:20:00* Test Item Value Reference Range Interpretation Comments Red Cell Distribution Width (test code = 84728-2) 14.6 11.7 -14.4 [facility] HospitalAutdu[facility] hospitaled blood platelet count (count/volume)2020-02-25 09:20:00* Test Item Value Reference Range Interpretation Comments Platelet Count (test code = 777-3) 213 140-360 [facility] HospitalAutomated blood segmented neutrophil count as percentage of total wjjntcsnyg9745-51-94 09:20:00* Test Item Value Reference Range Interpretation Comments Neutrophils (%) (Auto) (test code = 08818-9) 68.4 38.7-80.0 [facility] HospitalAutomated blood lymphocyte count as percentage ot total mrhhfglwtj3480-28-08 09:20:00* Test Item Value Reference Range Interpretation Comments Lymphocytes (%) (Auto) (test code = 736-9) 25.4 18.0-39.1 [facility] HospitalAutomated blood monocyte count as percentage of total kjdrmodikq7884-49-44 09:20:00* Test Item Value Reference Range Interpretation Comments Monocytes (%) (Auto) (test code = 5905-5) 5.6 4.4-11.3 [facility] HospitalAutomated blood eosinophil count as percentage of total vunbklrqky3140-12-45 09:20:00* Test Item Value Reference Range Interpretation Comments Eosinophils (%) (Auto) (test code = 713-8) 0.0 0.0-6.0 [facility] HospitalAutomated blood basophil count as percentage of total oqevcbjxtr3871-73-38 09:20:00* Test Item Value Reference Range Interpretation Comments Basophils (%) (Auto) (test code = 706-2) 0.3 0.0-1.0 [facility] HospitalFluoroscopic procedure less than one hour xwvvhdjm0591-48-46 09:20:00* Test Item Value Reference Range Interpretation Comments IM GRANULOCYTES % (test code = IM GRANULOCYTES %) 0.3 0.0- 1.0 [facility] HospitalAutomated blood neutrophil count 2020-02-25 09:20:00* Test Item Value Reference Range Interpretation Comments Neutrophils # (Auto) (test code = 751-8) 5.3 2.1-6.9 [facility] HospitalBlood lymphocytes count (number/volume) 2020-02-25 09:20:00* Test Item Value Reference Range Interpretation Comments Lymphocytes # (Auto) (test code = 33708-8) 2.0 1.0-3.2 [facility] HospitalBlood monocytes automated count (number/volume)2020-02-25 09:20:00* Test Item Value Reference Range Interpretation Comments Monocytes # (Auto) (test code = 742-7) 0.4 0.2-0.8 [facility] HospitalAutomated blood eosinophil count 2020-02-25 09:20:00* Test Item Value Reference Range Interpretation Comments Eosinophils # (Auto) (test code = 711-2) 0.0 0.0-0.4 [facility] HospitalAutomated blood basophil count (count/volume)2020-02-25 09:20:00* Test Item Value Reference Range Interpretation Comments Basophils # (Auto) (test code = 704-7) 0.0 0.0-0.1 [facility] HospitalFluoroscopic procedure less than one hour eiwitlij2034-18-88 09:20:00* Test Item Value Reference Range Interpretation Comments Absolute Immature Granulocyte (auto (dana t code = Absolute Immature Granulocyte (auto) 0.02 0-0.1 [facility] sodium measurement (moles/volume)2020-02-25 09:20:00* Test Item Value Reference Range Interpretation Comments Sodium Level (test code = 2951-2) 135 136-145 [facility] or plasma potassium measurement (moles/volume)2020-02-25 09:20:00* Test Item Value Reference Range Interpretation Comments Potassium Level (test code = 2823-3) 3.5 3.5-5.1 [facility] or plasma chloride measurement (moles/volume)2020-02-25 09:20:00* Test Item Value Reference Range Interpretation Comments Chloride Level (test code = 2075-0) 102 98-107 [facility] or plasma carbon dioxide, total measurement (moles/volume)2020-02-25 09:20:00* Test Item Value Reference Range Interpretation Comments Carbon Dioxide Level (test code = 2028-9) 22 22-29 [facility]er[facility] or plasma anion kob4819-15-86 09:20:00* Test Item Value Reference Range Interpretation Comments Anion Gap (test code = 55582-9) 14.5 8-16 [facility] or plasma urea nitrogen measurement (mass/volume)2020-02-25 09:20:00* Test Item Value Reference Range Interpretation Comments Blood Urea Nitrogen (test code = 3094-0) 12 7-26 [facility]er[facility] or plasma creatinine measurement (mass/volume)2020-02-25 09:20:00* Test Item Value Reference Range Interpretation Comments Creatinine (test code = 2160-0) 1.08 0.57-1.11 [facility] or plasma urea nitrogen/creatinine mass mlaum3157-59-41 09:20:00* Test Item Value Reference Range Interpretation Comments BUN/Creatinine Ratio (test code = 3097-3) 11 6-25 [facility] HospitalEstimated glomerular filtration rate (GFR) pddgszqtvaydn0409-04-41 09:20:00* Test Item Value Reference Range Interpretation Comments Estimat Glomerular Filtration Rate (test code = 191489155) > 60 >60 Ranges were taken from the National Kidney Disease Education Program and the [facility] literature.Reference ranges:60 or greater: Urplaa03-58 ( for 3 consecutive months): Chronic kidney disease 15 or less: Kidney failureMemorial Hermann Cypress HospitalGlucose jwlqwvxolax1450-43-80 09:20:00* Test Item Value Reference Range Interpretation Comments Glucose Level (test code = ILN1102) 133 74-118 [facility] or plasma calcium measurement (mass/volume)2020-02-25 09:20:00* Test Item Value Reference Range Interpretation Comments Calcium Level (test code = 18540-8) 9.2 8.4-10.2 [facility]er[facility] or plasma total bilirubin measurement (mass/volume)2020-02-25 09:20:00* Test Item Value Reference Range Interpretation Comments Total Bilirubin (test code = 1975-2) 0.3 0.2-1.2 [facility] HospitalFluoroscopic procedure less than one hour nbivsfkq2686-79-82 09:20:00* Test Item Value Reference Range Interpretation Comments Aspartate Amino Transf (AST/SGOT) (test code = Aspartate Amino Transf (AST/SGOT)) 26 5-34 [facility] Hospitaler[facility] or plasma alanine aminotransferase measurement (enzymatic activity/volume)2020-02-25 09:20:00* Test Item Value Reference Range Interpretation Comments Alanine Aminotransferase (ALT/SGPT) (test code = 1742-6) 17 0-55 [facility] Hospitaler[facility] or plasma protein measurement (mass/volume)2020-02-25 09:20:00* Test Item Value Reference Range Interpretation Comments Total Protein (test code = 2885-2) 9.5 6.5-8.1 [facility] Hospitaler[facility] or plasma albumin measurement (mass/volume)2020-02-25 09:20:00* Test Item Value Reference Range Interpretation Comments Albumin (test code = 1751-7) 3.7 3.5-5.0 [facility] HospitalPlasma globulin measurement (mass/volume) 2020-02-25 09:20:00* Test Item Value Reference Range Interpretation Comments Globulin (test code = 33374-1) 5.8 2.3-3.5 [facility]er[facility] or plasma albumin/globulin mass nttug0913-97-16 09:20:00* Test Item Value Reference Range Interpretation Comments Albumin/Globulin Ratio (test code = 1759-0) 0.6 0.8-2.0 [facility] Hospitaler[facility] or plasma alkaline phosphatase measurement (enzymatic activity/volume)2020-02-25 09:20:00* Test Item Value Reference Range Interpretation Comments Alkaline Phosphatase (test code = 6768-6) 26 40-150 [facility] or plasma chorionic gonadotropin measurement (mass/volume)2020-02-25 09:20:00* Test Item Value Reference Range Interpretation Comments Human Chorionic Gonadotropin, Quant (test code = 96282-7) 24.53 0-10 [facility] HospitalBASIC METABOLIC [id number] 13:52:00 * Test Item Value Reference Range [...] CA) 8.8 mg/dL 8.5-10.1 N HCG SERUM [id number] 13:52:00* Test Item Value Reference Range Interpretation [...] CONCEPTION 10,000-100,000 MIU/ML - US PREG 1ST [id number] 13:48:00 Name: CHRISTINE OTTO [facility] : 1990 Age/S: 29 / F [address] [facility] Unit #: [id number] Loc: LYLY [place] [address] Phys: Qi Pratt CUSTOMER BUSINESS MANAGER Acct: [id number] Dis Date: Status: REG ER PHONE #: [phone] Exam Date: 02/20/2020 1972 FAX #: [phone] Reason: VAGINAL BLEEDING/PELVIC PAIN EXAMS: CPT CODE: [id number] US PREG 1ST TRIMTR 23182 EXAM: First trimester ultrasound, transvaginal ultrasound and [...] Probable uterine fibroids as described. Location code: [facility] at 1348 Reported and signed by: Tristen Isabel M.D. CC: Ashu Crocker MD; Qi Pratt NP Technologist: JONE RODRIGUEZ Trnscb Date/Time: 02/20/2020 (1348) t.DEANAR.GR W Orig Print D/T: S: 02/20/2020 (6897) Probe: PAGE 1 Signed Report - DUP AB/PEL/SC [id number] 13:48:00 Name: CHRISTINE OTTO [facility] : 1990 Age/S: 29 / F [address] [facility] Unit #: [id number] Loc: LYLY [place] [address] Phys: Qi Pratt NP Acct: [id number] Dis Date: Status: REG ER PHONE #: [phone] Exam Date: 02/20/2020 1245 FAX #: [phone] Reason: PELVIC PAIN EXAMS: CPT CODE: [id number] DUP AB/PEL/SC COMP 30265 EXAM: First trimester ultrasound, transvaginal ultrasound and [...] Probable uterine fibroids as described. Location code: [facility] at 1348 Reported and signed by: Tristen Isabel M.D. CC: Ashu Crocker MD; Qi Pratt NP Technologist: JONE RODRIGUEZ US Trnscb Date/Time: 02/20/2020 (1348) Elizabeth W Orig Print D/T: S: 02/20/2020 (2440) Probe: PAGE 1 Signed Report - US PREG UT [id number] 13:48:00 Name: CHRISTINE OTTO [facility] : 1990 Age/S: 29 / F [address] [facility] Unit #: [id number] Loc: LYLY [place] [address] Phys: Qi Pratt CUSTOMER BUSINESS MANAGER Acct: [id number] Dis Date: Status: REG ER PHONE #: [phone] Exam Date: 02/20/2020 1245 FAX #: [phone] Reason: PELVIC PAIN EXAMS: CPT CODE: [id number] US PREG UT TRANSVAGINAL 08436 EXAM: First trimester ultrasound, transvaginal ultrasound and [...] Probable uterine fibroids as described. Location code: [facility] at 1348 Reported and signed by: Tristen Isabel M.D. CC: Ashu Crocker MD; Qi Pratt NP Technologist: JONE RODRIGUEZ Trnscb Date/Time: 02/20/2020 (1348) Elizabeth Ngo Orig Print D/T: S: 02/20/2020 (2190) Probe: [id number] X9 PAGE 1 Signed Report BASIC METABOLIC [id number] 13:39:00* Test Item Value Reference Range Interpretation [...] code = CA) mg/dL 8.5-10.1 HCG SERUM [id number] 13:39:00* Test Item Value Reference Range Interpretation Comments HCG SERUM BETA (test code = HCG) mIU/mL 0-3 CBC W/O [id number] 13:30:00* Test Item Value Reference Range Interpretation [...] = MPV) 12.0 fL 6.7-11.0 H URINALYSIS [id number] 13:29:00* Test Item Value Reference Range Interpretation [...] FEW #/LPF FEW Urine Source? Clean CatchURINALYSIS [id number] 13:03:00* Test Item Value Reference Range Interpretation [...] HPF NONE Urine Source? Clean CatchBASIC METABOLIC [id number] 14:30:00* Test Item Value Reference Range Interpretation [...] CA) 8.2 mg/dL 8.5-10.1 L HCG SERUM [id number] 14:30:00* Test Item Value Reference Range Interpretation Comments HCG SERUM QUAL (test code = HCGQL) NEGATIVE NEGATIVE This HCGQL test is NOT applicable for MALE patients.Check with nurse about probable order error.If Tumor Marker Test needed, nurse should order test "HCGTU"(Test #550.66478) BASIC METABOLIC [id number] 14:25:00* Test Item Value Reference Range Interpretation [...] code = CA) mg/dL 8.5-10.1 HCG SERUM [id number] 14:25:00* Test Item Value Reference Range Interpretation Comments HCG SERUM QUAL (test code = HCGQL) NEGATIVE NEGATIVE This HCGQL test is NOT applicable for MALE patients.Check with nurse about probable order error.If Tumor Marker Test needed, nurse should order test "HCGTU"(Test #550.15306) CBC W/AUTO [id number] 14:12:00* Test Item Value Reference Range Interpretation [...] = NRBC#) 0.00 K/mm3 0.0-0.1 N LYMPH NODE,[id number] 16:06:00 RUN DATE: 12/17/19 [place] 1 RUN TIME: 1606 Specimen Inqui ry RUN USER: INTERFACE PATIENT: CHRISTINE OTTO ACCT #: [id number] LOC: BENJAMIN U #: [id number] AGE/SX: 29/F ROOM: RE12/14/19[facility] DR: Tio Melton MD : [birth year] BED: DIS: STATUS: [facility] TLOC: SPEC #: [id number] RECD: 12/14/19 STATUS: REGULO RE #: [id number] [id number] TED: 12/14/19 [facility] DR: Tio Melton MD ENTERED: 12/14/19 SP TYPE: BX LYMPH OTHR DR: Stephen Crocker MD ORDERED: GROSS COPIES TO: Tio Melton MD [address] [place] [address] Stephen Crocker MD [address] [facility] [address] [place] [address] PROCEDURES: GROSS (12/17/19-1453) TISSUES: LYMPH NODE, NOS [...] dence of autoimmune disorders. Evaluation by a supervisor hand workers may be appropriat e. It may also [...] ON N EXT PAGE RUN DATE: 12/17/19 [facility] mela PAGE 2 RUN TIME: 1606 Sp ecimen Inquiry RUN USER: INTERFACE SPEC #: [id number] PATIENT: BYRON LOPEZALEXANDR BRUCEKALLIEELIANE #[id number] (Continued) FI NAL DIAGNOSIS LEFT AXILLARY LYMPH NODE, RESECTION: Increased IgG4 positive plasma cells with reactive lymphoid hyperplasia, see comment Dermatopathic pigment and tattoo pigment identified Electronic S ignature Binh Marina M.D. D 12419 FLOW CYTOMETRY Flow Cytometry Analysis Accession/Jaziel e No:[id number] Diagnosis:No flow immunophenotypic evidence of a lym [...] ON NEXT PAGE -- RUN DATE: 12/17/19 [place] [facility] PAGE 3 RUN TIME: 1606 Specimen Inquiry RUN USER: INTERFACE SPEC #: [id number] PATIENT: CHRISTINE OTTO #[id number] (Continued) FLOW CYTOMETRY (Continued) CD45 Ne.1% Plasma Cells: 1.2% Markers Performed:CD2, CD 3, CD4, CD5, CD7, CD8, CD10, CD11c, CD13, CD14, CD16, CD19, CD20, CD23, CD33, CD 34,CD38, CD45, CD56, CD64, CD117, HLA-DR, [place], Lambda (24 Markers) CPT Codes:8 8184x1, 39591h34, 60170c2 Microscopic DescriptionA digital image of a cytospin s lide was reviewed for QA purposes. Electronic Bonnie Carrillo M.D. The Technical Component Processing, Analysis and Professional Component of this test wascompleted at [employer], [address], [place], [place] / [address] /[phone] / CLIA# [id number] / Crib Tender(s): Tio Gomez MD.This test was developed and [...] may be included within this report are security systems sales representative of the patient but notall testing in its entiret y and should not be used to render a result.The CPT codes provided with our test descriptions are based on AMA guidelines and are forinformational purposes only . Correct CPT coding is the sole responsibility of the billingparty. Please dire ct any questions regarding coding to the payer being billed. 2019 [employer] All rights reserved. [employer] and theassociated logo are trademarks of [employer] MACROSCOPIC T he specimen is received [...] for flow cytometry studies. Section Code: 1A-1D- security systems sales representative tissue. GROSS PERFORMED AT [facility] CONTINUED ON NEXT PAGE RUN DATE: 12/17/19 [facility] PAGE 4 RUN TIME: 1606 Specimen Inquiry RUN USER: INTERFACE SPEC #: [id number] PATIENT: CHRISTINE OTTO #[id number] (Continue d) MACROSCOPIC (Continued) [facility] [address] [place] [address] ([phone] MICROSCOPIC All of the stains, including any controls performed, stain appropriately. MICROSCOPIC PERFORMED AT [facility] [address] [facility] [place] [address] [phone] PERFORMING SITE Diagnosis performed at: [facility] are [facility] [address] [place] [address] Signed SIGNATURE O Vidal Sharpe MD 12/17/19 1606 END OF REPORT HCG SERUM [id number] 15:02:00* Test Item Value Reference Range Interpretation Comments HCG SERUM QUAL (test code = HCGQL) NEGATIVE NEGATIVE This HCGQL test is NOT applicable for MALE patients.Check with nurse about probable order error.If Tumor Marker Test needed, nurse should order test "HCGTU"(Test #550.44914) BASIC METABOLIC [id number] 15:01:00* Test Item Value Reference Range Interpretation [...] CA) 8.4 mg/dL 8.5-10.1 L BASIC METABOLIC [id number] 14:56:00* Test Item Value Reference Range Interpretation [...] code = CA) mg/dL 8.5-10.1 CBC W/AUTO [id number] 14:25:00* Test Item Value Reference Range Interpretation [...] Coronavirus (PCR)) NOT DETECTED NOTD ETECTED CORONAVIRUS QITF-MJK-0-RT-PCR (RESPIRATORY)This test has been validated but FDA' s independent review of the validation is pending. This test is performed as a l aboratory developed test; independent review of the validation under FDA's Emerg ency Use Authorization (EUA) authority will be performed according to current [facility] requirements.We will continue to follow federal and state requirements fo r both notification of results and confirmatory testing that is required by [facility] her agency.This test was developed and its performance characteristics determine d by [employer]. It has not been cleared or approved by the U.S. Food and Drug Administration. Results should be used in conjunction with clinical finding s, and should not form the sole basis for a diagnosis or treatment decision.Spec imen sent to [facility] and performed at [facility], [address] [place] [address]. [id number] Hermann Cypress HospitalBlood Tvabuad7366-14-75 18:46:00* Test Item Value Reference Range Interpretation Comments Blood Culture (test code = 78958226) NO GROWTH AFTER 5 DAYS, FINAL REPORT [facility] HospitalAlbumin (PEP)2019-12-02 13:53:00* Test Item Value Reference Range Interpretation Comments Albumin (PEP) (test code = Albumin (PEP)) 3.0 2.9-4.4 [facility] HospitalAlpha-1-Cjqskpwgt8382-36-15 13:53:00* Test Item Value Reference Range Interpretation Comments Rdbsd-6-Hvjygnpsl (test code = 2865-4) 0.3 0.0-0.4 [facility] HospitalAlpha-2-Iauztdzxz6863-39-98 13:53:00* Test Item Value Reference Range Interpretation Comments Rjoam-4-Rlqqqwvjk (test code = 2868-8) 0.7 0.4-1.0 [facility] HospitalBeta Gamma Jlchdiim8443-13-64 13:53:00* Test Item Value Reference Range Interpretation Comments Beta Gamma Globulin (test code = 2871-2) 1.1 0.7-1.3 [facility] HospitalGamma Kgpzjrret6711-68-94 13:53:00* Test Item Value Reference Range Interpretation Comments Gamma Globulins (test code = 2874-6) 3.9 0.4-1.8 H [facility] HospitalTotal Protein (PEP)2019-12-02 13:53:00* Test Item Value Reference Range Interpretation Comments Total Protein (PEP) (test code = 2885-2) 9.0 6.0-8.5 H [facility] HospitalGlobulin2020-03-25 13:53:00* Test Item Value Reference Range Interpretation Comments Globulin (test code = 50195-5) 6.0 2.2-3.9 H [facility] HospitalKappa Light Chain Ctrkqadi8770-45-71 13:53:00* Test Item Value Reference Range Interpretation Comments [place] Light Chain Analysis (test code = 56386-3) 236.5 3.3-1 9.4 H [facility] HospitalLambda Light Chain Eeasekls3103-51-42 13:53:00* Test Item Value Reference Range Interpretation Comments Lambda Light Chain Analysis (test code = 71130-1) 201.9 5.7- 26.3 H [facility] HospitalTotl [place]/Lambda Light Chain Ratio 2019-12-02 13:53:00* Test Item Value Reference Range Interpretation Comments Totl [place]/Lambda Light Chain Ratio (test code = 07410-4) 1.17 0.26-1.65 Performed at: - [facility] [id number] Director: Aba Brantley MD, Phone: [phone] at: DA - [facility] [address], [place], [place] [id number] Director: DEBRA Daniel MD, Phone: [phone] Hermann Cypress HospitalProtein Electrophoresis M-Rirgx8345-32Loqph3518-90-41 13:53:00* Test Item Value Reference Range Interpretation Comments Protein Electrophoresis M-Clay (test code = 69776-8) Not Observ ed Not Observed [facility] HospitalAlbumin/Globulin Qkbqj0823-41-02 13:53:00 * Test Item Value Reference Range Interpretation Comments Albumin/Globulin Ratio (test code = 1759-0) 0.5 0.7-1.7 L [facility] HospitalProtein Electrophoresis Obda2409-21-03 13:53:00* Test Item Value Reference Range Interpretation Comments Protein Electrophoresis Note (test code = Protein Electropho resis Note) Comment . Protein electrophoresis scan will follow via computer,mail, or cable tv installer delivery. [facility] HospitalAnti-Double Strand DNA Uiezkuyq4065-10-47 22:14:00* Test Item Value Reference Range Interpretation Comments Anti-Double Strand DNA Antibody (test code = 5130-0) 3 0 -9 Negative <5 Equivocal 5 - 9 Positive > 9Performed at: [facility] [address] [id number] b Director: Aba Brantley MD, Phone: [phone] Hermann Cypress HospitalRheumatoid Yireir2805-19-08 22:14:00* Test Item Value Reference Range Interpretation Comments Rheumatoid Factor (test code = 84080-0) <10.0 0.0-13.9 Performed at: [facility] [address] [id number] Director: Aba Brantley MD, Phone: [phone] Hermann Cypress HospitalUrine Dhnmqwz5337-87-57 22:14:00* Test Item Value Reference Range Interpretation Comments Urine Protein (test code = 2888-6) 6.0 Not Estab. [facility] HospitalUrine Hinvkyz5924-54-01 22:14:00* Test Item Value Reference Range Interpretation Comments Urine Albumin (test code = 06658-6) 41.0 . [facility] HospitalUrine Tfomr-6-Eppnnbxi2152-03-24 22:14:00 * Test Item Value Reference Range Interpretation Comments Urine Kawnw-5-Jwvhcppu (test code = 06028-1) 4.6 . [facility] HospitalUrine Qvjlv-8-Dnbednexx0721-03-24 22:14:00* Test Item Value Reference Range Interpretation Comments Urine Upcae-2-Nocnnrnow (test code = 17162-3) 8.5 . [facility] HospitalUrine Beta Fnqcsjqn6461-53-50 22:14:00* Test Item Value Reference Range Interpretation Comments Urine Beta Globulin (test code = 15565-1) 19.9 . [facility] HospitalUrine Gamma Xgxodpzd4485-21-01 22:14:00* Test Item Value Reference Range Interpretation Comments Urine Gamma Globulin (test code = 87280-7) 26.0 . [facility] HospitalUrine Random PEP M-Clay %2019-12-01 22:14:00* Test Item Value Reference Range Interpretation Comments Urine Random PEP M-Clay % (test code = 57665-4) Not Observed Not O bserved [facility] HospitalProtein Electrophoresis Enwp3790-32-61 22:14:00* Test Item Value Reference Range Interpretation Comments Protein Electrophoresis Note (test code = Protein Electropho resis Note) Comment . Protein electrophoresis scan will follow via computer,mail, or cable tv installer delivery. Performed at: [facility] [employer] [id number] Director: Aba Brantley MD, Phone: [phone] at: [facility] [id number] Director: DEBRA Daniel MD, Phone: [phone] Hermann Cypress HospitalUrine Immunofixation 2019-12-01 22:13:00* Test Item Value Reference Range Interpretation Comments Urine Immunofixation (test code = 899802417) Note: . Immunofixation shows IgG monoclonal protein with no confirmedlight chain associa tion, which is suggestive of Heavy ChainDisease. Recommend retesting in -10 we ks.Performed at: [facility] [address]Lab Director: DEBRA Daniel MD, Phone: [phone] Hermann Cypress HospitalErythrocyte Sedimentation Jyvv7700-90-56 09:30:00* Test Item Value Reference Range Interpretation Comments Erythrocyte Sedimentation Rate (test code = 4537-7) 87 0- 20 H [facility] HospitalDifferential Total Cells Counted 2019-11-30 08:02:00* Test Item Value Reference Range Interpretation Comments Differential Total Cells Counted (test code = South tial Total Cells Counted) 100 [facility] HospitalNeutrophils % (Manual)2019-11-30 08:02:00 * Test Item Value Reference Range Interpretation Comments Neutrophils % (Manual) (test code = 70533-1) 59 40-74 [facility] HospitalLymphocytes % (Manual)2019-11-30 08:02:00 * Test Item Value Reference Range Interpretation Comments Lymphocytes % (Manual) (test code = 737-7) 35 19-48 [facility] HospitalMonocytes % (Manual)2019-11-30 08:02:00* Test Item Value Reference Range Interpretation Comments Monocytes % (Manual) (test code = 744-3) 5 3.4-9.0 [facility] HospitalEosinophils % (Manual)2019-11-30 08:02:00 * Test Item Value Reference Range Interpretation Comments Eosinophils % (Manual) (test code = 714-6) 1 0-7 [facility] HospitalWhite Blood Mjecj2141-94-78 06:23:00* Test Item Value Reference Range Interpretation Comments White Blood Count (test code = 6690-2) 4.85 4.8-10.8 [facility] HospitalRed Blood Gtmho8184-78-51 06:23:00* Test Item Value Reference Range Interpretation Comments Red Blood Count (test code = 789-8) 3.71 3.6-5.1 [facility] HospitalHemoglobin2020-03-23 06:23:00* Test Item Value Reference Range Interpretation Comments Hemoglobin (test code = 36577-8) 10.7 12.0-16.0 L [facility] HospitalHematocrit2020-03-23 06:23:00* Test Item Value Reference Range Interpretation Comments Hematocrit (test code = 4544-3) 34.2 34.2-44.1 [facility] HospitalMean Corpuscular Slothk2104-66-08 06:23:00* Test Item Value Reference Range Interpretation Comments Mean Corpuscular Volume (test code = 787-2) 92.2 81-99 [facility] Corpuscular Uhyagghhap6668-05-59 06:23:00* Test Item Value Reference Range Interpretation Comments Mean Corpuscular Hemoglobin (test code = 785-6) 28.8 28-32 [facility] Corpuscular Hemoglobin Concent 2019-11-30 06:23:00* Test Item Value Reference Range Interpretation Comments Mean Corpuscular Hemoglobin Concent (test code = 786-4) 31.3 31-35 [facility] HospitalRed Cell Distribution Lxzzb1745-47-53 06:23:00* Test Item Value Reference Range Interpretation Comments Red Cell Distribution Width (test code = 48686-2) 13.8 11.7 -14.4 [facility] HospitalPlatelet Psjyb9544-73-91 06:23:00* Test Item Value Reference Range Interpretation Comments Platelet Count (test code = 777-3) 250 140-360 [facility] HospitalFluoroscopic procedure less than one hour vyzbgtbz5428-10-14 05:50:00* Test Item Value Reference Range Interpretation Comments Differential Total Cells Counted (test code = Differen tial Total Cells Counted) 100 [facility] blood neutrophils/100 leukocytes 2019-11-30 05:50:00* Test Item Value Reference Range Interpretation Comments Neutrophils % (Manual) (test code = 38415-5) 59 40-74 [facility] blood lymphocytes/100 leukocytes 2019-11-30 05:50:00* Test Item Value Reference Range Interpretation Comments Lymphocytes % (Manual) (test code = 737-7) 35 19-48 [facility] blood monocytes/100 leukocytes 2019-11-30 05:50:00* Test Item Value Reference Range Interpretation Comments Monocytes % (Manual) (test code = 744-3) 5 3.4-[address] [facility] Center[facility]ual blood eosinophil count as percentage of total sjmpcmrwuk7924-70-64 05:50:00* Test Item Value Reference Range Interpretation Comments Eosinophils % (Manual) (test code = 714-6) 1 0-7 [facility] HospitalErythrocyte sedimentation rate by Westergren fgttpk9714-47-23 05:50:00* Test Item Value Reference Range Interpretation Comments Erythrocyte Sedimentation Rate (test code = 4537-7) 87 0- 20 [facility] HospitalFluoroscopic procedure less than one hour ryvtools7106-35-05 05:50:00* Test Item Value Reference Range Interpretation Comments Albumin (PEP) (test code = Albumin (PEP)) 3.0 2.9-4.4 [facility] Hospitalerum or plasma alpha 1 globulin measurement by electrophoresis (mass/volume)2019-11-30 05:50:00* Test Item Value Reference Range Interpretation Comments Rlqyn-8-Bdgnjwzhg (test code = 2865-4) 0.3 0.0-0.4 [facility] Hospitalerum or plasma alpha 2 globulin measurement by electrophoresis (mass/volume)2019-11-30 05:50:00* Test Item Value Reference Range Interpretation Comments Jresg-9-Xtfxbawdo (test code = 2868-8) 0.7 0.4-1.0 [facility] Hospitalerum or plasma beta globulin measurement by electrophoresis (mass/volume)2019-11-30 05:50:00* Test Item Value Reference Range Interpretation Comments Beta Gamma Globulin (test code = 2871-2) 1.1 0.7-1.3 [facility] Hospitalerum or plasma gamma globulin measurement by electrophoresis (mass/volume)2019-11-30 05:50:00* Test Item Value Reference Range Interpretation Comments Gamma Globulins (test code = 2874-6) 3.9 0.4-1.8 [facility] Hospitalerum or plasma protein measurement (mass/volume)2019-11-30 05:50:00* Test Item Value Reference Range Interpretation Comments Total Protein (PEP) (test code = 2885-2) 9.0 6.0-8.5 [facility] Hospitalerum globulin measurement by calculation (mass/volume)2019-11-30 05:50:00* Test Item Value Reference Range Interpretation Comments Globulin (test code = 82541-2) 6.0 2.2-3.9 [facility] Hospitalerum immunoglobulin kappa light chains measurement (mass/volume)2019-11-30 05:50:00* Test Item Value Reference Range Interpretation Comments [place] Light Chain Analysis (test code = 23954-1) 236.5 3.3-1 9.4 [facility] Hospitalerum or plasma immunoglobulin free lambda light chains measurement (mass/volume)2019-11-30 05:50:00* Test Item Value Reference Range Interpretation Comments Lambda Light Chain Analysis (test code = 44610-5) 201.9 5.7- 26.3 [facility] Hospitalerum immunoglobulin kappa light chains/immunoglobulin lambda light chains mass iuzyj8121-07-88 05:50:00* Test Item Value Reference Range Interpretation Comments Totl [place]/Lambda Light Chain Ratio (test code = 02511-8) 1.17 0.26-1.65 Performed at: - [facility] [id number] Director: Aba Brantley MD, Phone: [phone] at: - [facility] [address] [id number] Director: DEBRA Daniel MD, Phone: [phone] Children's Hospitalerum or plasma protein monoclonal measurement by electrophoresis (mass/volume)2019-11-30 05:50:00* Test Item Value Reference Range Interpretation Comments Protein Electrophoresis M-Clay (test code = 44014-5) Not Observ ed Not Observed [facility] Hospitalerum or plasma albumin/globulin mass lzmgn5286-80-78 05:50:00* Test Item Value Reference Range Interpretation Comments Albumin/Globulin Ratio (test code = 1759-0) 0.5 0.7-1.7 [facility] HospitalFluoroscopic procedure less than one hour shlbzmkc5362-17-87 05:50:00* Test Item Value Reference Range Interpretation Comments Protein Electrophoresis Note (test code = Protein Electropho resis Note) Comment . Protein electrophoresis scan will follow via computer,mail, or cable tv installer delivery. [facility] Hospitalerum DNA double strand antibody assay (units/volume)2019-11-30 05:50:00* Test Item Value Reference Range Interpretation Comments Anti-Double Strand DNA Antibody (test code = 5130-0) 3 0 -9 Negative <5 Equivocal 5 - 9 Positive > 9Performed at: HD - [facility] [address] [place], [place] [id number] b Director: Aba Brantley MD, Phone: [phone] Children's Hospitalerum nuclear antibody titer by otxxvdnvuggbwafcqm1352-29-28 05:50:00* Test Item Value Reference Range Interpretation Comments Anti-Nuclear Antibody Screen (test code = 5048-4) Positive [facility] Hospitalerum nuclear antibody pattern homogenous emxra7218-34-87 05:50:00* Test Item Value Reference Range Interpretation Comments Anti-Nuclear Ab Homogeneous Pattern (test code = 13330-1) 1:1280 [facility] HospitalFluoroscopic procedure less than one hour asuetwis0495-54-03 05:50:00* Test Item Value Reference Range Interpretation [...] Nucleosomes, Histones Drug-induced SL E Speckled Sm, TYPING POOL SUPERVISOR , SCL-70, SLE,MCTD,PSS (diffuse form), SS-A/SS-B Sjogrens --- -------- Nucleolar SCL-70, PM-1 /SCL High titers Scleroderma, PM/DM --- Centromere Centromere PSS (li mited form) w/Crest syndrome variable - Nuclear Dot Sp100,j58-tygqer Prima ry Biliary Cirrhosis Nuclear GP210, Primary Biliary Cirrhosis Membrane renetta A,B,C - Testing performed by:Jana Manuel [address] [phone]: Aba Brantley MD [facility] Hospitalerum or plasma rheumatoid factor measurement (units/volume)2019-11-30 05:50:00* Test Item Value Reference Range Interpretation Comments Rheumatoid Factor (test code = 56622-7) <10.0 0.0-13.9 Performed at: [facility] [address] [id number] Director: Aba Brantley MD, Phone: [phone] Hermann Cypress HospitalFluoroscopic procedure less than one hour btwdmzza8478-79-62 05:50:00* Test Item Value Reference Range Interpretation [...] 4Negative Control PassedPositive Control PassedTe sting performed by:[facility] [place], [place] [address] [phone]: Eric [facility] HospitalUrine immunofixation asuljelobapyhi5450-14-09 13:57:00* Test Item Value Reference Range Interpretation Comments Urine Immunofixation (test code = 720134816) Note: . Immunofixation shows IgG monoclonal protein with no confirmedlight chain associa tion, which is suggestive of Heavy ChainDisease. Recommend retesting in -10 we.Performed at: [facility] [address] [address]Lab Director: DEBRA Daniel MD, Phone: [phone] Hermann Cypress HospitalUrine protein measurement (mass/volume)2019-11-29 13:57:00* Test Item Value Reference Range Interpretation Comments Urine Protein (test code = 2888-6) 6.0 Not Estab. [facility]24 hour urine albumin/total protein ratio by uguicfymyorwigk6106-44-84 13:57:00* Test Item Value Reference Range Interpretation Comments Urine Albumin (test code = 24763-0) 41.0 . [facility]24 hour urine alpha 1 globulin/total protein by fteqasomcrodooo7969-22-73 13:57:00* Test Item Value Reference Range Interpretation Comments Urine Guqmd-7-Ipabhchh (test code = 51434-0) 4.6 . [facility]24 hour urine alpha 2 globulin/total protein by mlwzplegwvslcbs2153-33-22 13:57:00* Test Item Value Reference Range Interpretation Comments Urine Divao-5-Tiyrcpjqa (test code = 59661-7) 8.5 . [facility]24 hour urine beta globulin/total protein ratio by tdxvjxoqlcbhppx4833-61-66 13:57:00* Test Item Value Reference Range Interpretation Comments Urine Beta Globulin (test code = 94088-8) 19.9 . [facility]24 hour urine gamma globulin/total protein ratio by sjviwuqchepzsnx4383-40-07 13:57:00* Test Item Value Reference Range Interpretation Comments Urine Gamma Globulin (test code = 78309-9) 26.0 . [facility] HospitalUrine protein monoclonal/total protein by etgjamkgiyicmmy2183-11-93 13:57:00* Test Item Value Reference Range Interpretation Comments Urine Random PEP M-Clay % (test code = 64238-7) Not Observed Not O bserved [facility] HospitalFluoroscopic procedure less than one hour edqawews7497-44-57 13:57:00* Test Item Value Reference Range Interpretation Comments Protein Electrophoresis Note (test code = Protein Electropho resis Note) Comment . Protein electrophoresis scan will follow via computer,mail, or cable tv installer delivery. Performed at: - [facility] [id number] Director: Aba Brantley MD, Phone: [phone] at: DA - [facility] [address] [id number] Director: DEBRA Daniel MD, Phone: [phone] Hermann Cypress HospitalInfluenza Virus Types A,B Fafbsly3792-88-19 06:47:00* Test Item Value Reference Range Interpretation Comments Influenza Virus Types A,B Antigen (test code = 55000-9) NEGATIVE NEGATIVE [facility] Hospitalerum or plasma HIV 1 RNA viral load by probe and target amplification method (number/volume)2019-11-29 06:45:00* Test Item Value Reference Range Interpretation Comments HIV-1 RNA, Quantitative copies/mL (test code = 24121-0) <20 . HIV-1 RNA not detectedThe reportable range for this assay is 20 to 10,000,000cop ies HIV-1 RNA/mL.[facility] HospitalChlamydia pneumoniae DNA (PCR)2019-11-29 05:35:00* Test Item Value Reference Range Interpretation Comments Chlamydia pneumoniae DNA (PCR) (test code = Chlamydia pneumoniae DNA (PCR)) NOT DETECTED NOT DETECT Test performed at [facility] [place] [address] 7 [address]30RESULTS HAVE BEEN CALLED TO THE PHYSICIANMemorial Hermann Cypress HospitalInfluenza Type A (RT-PCR)2019-11-29 05:35:00* Test Item Value Reference Range Interpretation Comments Influenza Type A (RT-PCR) (test code = 786350070) NOT DETECTED NOT DETECT [facility] HospitalMycoplasma pneumoniae (PCR)2019-11-29 05:35:00* Test Item Value Reference Range Interpretation Comments Mycoplasma pneumoniae (PCR) (test code = Mycoplasma pn eumoniae (PCR)) NOT DETECTED NOT DETECT [facility] HospitalInfluenza Type B (RT-PCR)2019-11-29 05:35:00* Test Item Value Reference Range Interpretation Comments Influenza Type B (RT-PCR) (test code = 576753900) NOT DETECTED NOT DETECT [facility] HospitalRespiratory Syncytial Virus (PCR) 2019-11-29 05:35:00* Test Item Value Reference Range Interpretation Comments Respiratory Syncytial Virus (PCR) (test code = 194903051) NO T DETECTED NOT DETECT [facility] HospitalBordetella pertussis DNA (PCR)2019-11-29 05:35:00* Test Item Value Reference Range Interpretation Comments Bordetella pertussis DNA (PCR) (test code = 207100504) NOT DETEC RONA NOT DETECT [facility] HospitalParainfluenza Type 1 (PCR)2019-11-29 05:35:00* Test Item Value Reference Range Interpretation Comments Parainfluenza Type 1 (PCR) (test code = 096377296) NOT DETECTED NOT DETECT [facility] HospitalParainfluenza Type 2 (PCR)2019-11-29 05:35:00* Test Item Value Reference Range Interpretation Comments Parainfluenza Type 2 (PCR) (test code = 670919372) NOT DETECTED NOT DETECT [facility] HospitalParainfluenza Type 3 (PCR)2019-11-29 05:35:00* Test Item Value Reference Range Interpretation Comments Parainfluenza Type 3 (PCR) (test code = 425300158) NOT DETECTED NOT DETECT [facility] HospitalParainfluenza Type 4 (PCR)2019-11-29 05:35:00* Test Item Value Reference Range Interpretation Comments Parainfluenza Type 4 (PCR) (test code = Parainfluenza Type 4 (PCR)) NOT DETECTED NOT DETECT [facility] HospitalRhinovirus (PCR)2019-11-29 05:35:00* Test Item Value Reference Range Interpretation Comments Rhinovirus (PCR) (test code = 364754444) NOT DETECTED NOT DETECT [facility] Metapneumovirus (PCR)2019-11-29 05:35:00* Test Item Value Reference Range Interpretation Comments Human Metapneumovirus (PCR) (test code = 741378012) DETECTED NO T DETECT ABNORMALCHI Navarro Regional HospitalAdenovirus (PCR)2019-11-29 05:35:00* Test Item Value Reference Range Interpretation Comments Adenovirus (PCR) (test code = 220926387) NOT DETECTED NOT DETECT [facility] HospitalCoronavirus Type HKU1 (PCR)2019-11-29 05:35:00* Test Item Value Reference Range Interpretation Comments Coronavirus Type HKU1 (PCR) (test code = Coronavirus T ype HKU1 (PCR)) NOT DETECTED NOT DETECT [facility] HospitalCoronavirus Type NL63 (PCR)2019-11-29 05:35:00* Test Item Value Reference Range Interpretation Comments Coronavirus Type NL63 (PCR) (test code = Coronavirus T ype NL63 (PCR)) NOT DETECTED NOT DETECT [facility] HospitalCoronavirus Type OC43 (PCR)2019-11-29 05:35:00* Test Item Value Reference Range Interpretation Comments Coronavirus Type OC43 (PCR) (test code = Coronavirus T ype OC43 (PCR)) NOT DETECTED NOT DETECT [facility] HospitalCoronavirus Type 229E (PCR)2019-11-29 05:35:00* Test Item Value Reference Range Interpretation Comments Coronavirus Type 229E (PCR) (test code = Coronavirus T ype 229E (PCR)) NOT DETECTED NOT DETECT Test performed at [facility] [place] [address]RESULTS HAVE BEEN CALLED TO THE PHYSICIANMemorial Hermann Cypress HospitalInfluenza virus A and B antigen identification by immunofluorescence 2019-11-29 05:28:00* Test Item Value Reference Range Interpretation Comments Influenza Virus Types A,B Antigen (test code = 05064-7) NEGATIVE NEGATIVE [facility] HospitalHIV (1&2) Awlmczim8886-16-50 17:15:00* Test Item Value Reference Range Interpretation Comments HIV (1&2) Antibody (test code = 36546-9) NON-REACTIVE NONREACTIVE [facility] HospitalHIV P24 Kydulms2080-04-44 17:15:00* Test Item Value Reference Range Interpretation Comments HIV P24 Antigen (test code = HIV P24 Antigen) NON-REACTIVE NONREACT SHAVON [facility]HIV 1 and 2 antibody detection qualitative by rapid glfozenrjmo1671-87-00 16:00:00* Test Item Value Reference Range Interpretation Comments HIV (1&2) Antibody (test code = 47231-6) NON-REACTIVE NONREACTIVE [facility] HospitalFluoroscopic procedure less than one hour mukhtesv1227-43-00 16:00:00* Test Item Value Reference Range Interpretation Comments HIV P24 Antigen (test code = HIV P24 Antigen) NON-REACTIVE NONREACT SHAVON [facility] HospitalTotal Wbvxkcycs3007-05-52 08:33:00* Test Item Value Reference Range Interpretation Comments Total Bilirubin (test code = 1975-2) 0.4 0.2-1.2 [facility] HospitalAspartate Amino Transf (AST/SGOT) 2019-11-28 08:33:00* Test Item Value Reference Range Interpretation Comments Aspartate Amino Transf (AST/SGOT) (test code = Aspartate Amino Transf (AST/SGOT)) 53 5-34 H [facility] HospitalAlanine Aminotransferase (ALT/SGPT) 2019-11-28 08:33:00* Test Item Value Reference Range Interpretation Comments Alanine Aminotransferase (ALT/SGPT) (test code = 1742-6) 36 0-55 [facility] HospitalTotal Pntekud0468-58-78 08:33:00* Test Item Value Reference Range Interpretation Comments Total Protein (test code = 2885-2) 9.2 6.5-8.1 H [facility] HospitalAlbumin2020-03-21 08:33:00* Test Item Value Reference Range Interpretation Comments Albumin (test code = 1751-7) 3.0 3.5-5.0 L [facility] HospitalGlobulin2020-03-21 08:33:00* Test Item Value Reference Range Interpretation Comments Globulin (test code = 57549-6) 6.2 2.3-3.5 H [facility] HospitalAlbumin/Globulin Cilaq8093-16-80 08:33:00 * Test Item Value Reference Range Interpretation Comments Albumin/Globulin Ratio (test code = 1759-0) 0.5 0.8-2.0 L [facility] HospitalAlkaline Ipbknkahhny0388-14-07 08:33:00* Test Item Value Reference Range Interpretation Comments Alkaline Phosphatase (test code = 6768-6) 18 40-150 L [facility] HospitalNeutrophils (%) (Auto)2019-11-28 07:52:00 * Test Item Value Reference Range Interpretation Comments Neutrophils (%) (Auto) (test code = 19520-6) 49.8 38.7-80.0 [facility] HospitalLymphocytes (%) (Auto)2019-11-28 07:52:00 * Test Item Value Reference Range Interpretation Comments Lymphocytes (%) (Auto) (test code = 736-9) 45.3 18.0-39.1 H [facility] HospitalMonocytes (%) (Auto)2019-11-28 07:52:00* Test Item Value Reference Range Interpretation Comments Monocytes (%) (Auto) (test code = 5905-5) 4.3 4.4-11.3 L [facility] HospitalEosinophils (%) (Auto)2019-11-28 07:52:00 * Test Item Value Reference Range Interpretation Comments Eosinophils (%) (Auto) (test code = 713-8) 0.0 0.0-6.0 [facility] HospitalBasophils (%) (Auto)2019-11-28 07:52:00* Test Item Value Reference Range Interpretation Comments Basophils (%) (Auto) (test code = 706-2) 0.3 0.0-1.0 [facility] HospitalIM GRANULOCYTES %2019-11-28 07:52:00* Test Item Value Reference Range Interpretation Comments IM GRANULOCYTES % (test code = IM GRANULOCYTES %) 0.3 0.0- 1.0 [facility] HospitalNeutrophils # (Auto)2019-11-28 07:52:00* Test Item Value Reference Range Interpretation Comments Neutrophils # (Auto) (test code = 751-8) 1.9 2.1-6.9 L [facility] HospitalLymphocytes # (Auto)2019-11-28 07:52:00* Test Item Value Reference Range Interpretation Comments Lymphocytes # (Auto) (test code = 17613-3) 1.7 1.0-3.2 [facility] HospitalMonocytes # (Auto)2019-11-28 07:52:00* Test Item Value Reference Range Interpretation Comments Monocytes # (Auto) (test code = 742-7) 0.2 0.2-0.8 [facility] HospitalEosinophils # (Auto)2019-11-28 07:52:00* Test Item Value Reference Range Interpretation Comments Eosinophils # (Auto) (test code = 711-2) 0.0 0.0-0.4 [facility] HospitalBasophils # (Auto)2019-11-28 07:52:00* Test Item Value Reference Range Interpretation Comments Basophils # (Auto) (test code = 704-7) 0.0 0.0-0.1 [facility] HospitalAbsolute Immature Granulocyte (auto 2019-11-28 07:52:00* Test Item Value Reference Range Interpretation Comments Absolute Immature Granulocyte (auto (dana t code = Absolute Immature Granulocyte (auto) 0.01 0-0.1 [facility] Wasge2957-96-13 07:22:00* Test Item Value Reference Range Interpretation Comments Sodium Level (test code = 2951-2) 133 136-145 L [facility] HospitalPotassium Zgxtb4331-47-40 07:22:00* Test Item Value Reference Range Interpretation Comments Potassium Level (test code = 2823-3) 4.2 3.5-5.1 [facility] HospitalChloride Rbttx5571-97-16 07:22:00* Test Item Value Reference Range Interpretation Comments Chloride Level (test code = 2075-0) 104 98-107 [facility] HospitalCarbon Dioxide Pqlmk9949-60-99 07:22:00* Test Item Value Reference Range Interpretation Comments Carbon Dioxide Level (test code = 2028-9) 24 22-29 [facility] HospitalAnion Awt3509-07-82 07:22:00* Test Item Value Reference Range Interpretation Comments Anion Gap (test code = 50953-8) 9.2 8-16 [facility] HospitalBlood Urea Fjbpyclw6226-26-71 07:22:00* Test Item Value Reference Range Interpretation Comments Blood Urea Nitrogen (test code = 3094-0) 10 7-26 [facility] HospitalCreatinine2020-03-21 07:22:00* Test Item Value Reference Range Interpretation Comments Creatinine (test code = 2160-0) 0.83 0.57-1.11 [facility] HospitalBUN/Creatinine Xlagy5445-24-71 07:22:00* Test Item Value Reference Range Interpretation Comments BUN/Creatinine Ratio (test code = 3097-3) 12 6-25 [facility] HospitalEstimat Glomerular Filtration Rate 2019-11-28 07:22:00* Test Item Value Reference Range Interpretation Comments Estimat Glomerular Filtration Rate (test code = 380778608) > 60 >60 Ranges were taken from the National Kidney Disease Education Program and the [employer] [facility] literature.Reference ranges:60 or greater: Oqeudc95-39 ( for 3 consecutive months): Chronic kidney disease 15 or less: Kidney failureMemorial Hermann Cypress HospitalGlucose Fkjvw2873-01-80 07:22:00* Test Item Value Reference Range Interpretation Comments Glucose Level (test code = JZD7601) 94 74-118 [facility] HospitalCalcium Iwilr0217-77-51 07:22:00* Test Item Value Reference Range Interpretation Comments Calcium Level (test code = 06381-6) 8.2 8.4-10.2 L [facility] HospitalHemoglobin A1c Dujauhu1181-57-86 07:22:00 * Test Item Value Reference Range Interpretation Comments Hemoglobin A1c Percent (test code = Hemoglobin A1c Percent) 5.1 4.0-7.0 [facility] HospitalMagnesium Oozdo3301-33-42 07:22:00* Test Item Value Reference Range Interpretation Comments Magnesium Level (test code = 60150-6) 2.0 1.3-2.1 [facility] HospitalTriglycerides Pnsov7971-47-61 07:22:00* Test Item Value Reference Range Interpretation Comments Triglycerides Level (test code = 2571-8) 90 0-149 [facility] HospitalCholesterol Vcdzr7721-76-12 07:22:00* Test Item Value Reference Range Interpretation Comments Cholesterol Level (test code = 2093-3) 78 0-199 Less than 200 mg/dL Low Iqkq609 - 239 mg/dL Borderline Rszt059 m g/dl and greater High Risk [facility] HospitalLDL Mgvxgijtzeb3747-34-24 07:22:00* Test Item Value Reference Range Interpretation Comments LDL Cholesterol (test code = 2089-1) 44 60-130 L [facility] HospitalHDL Bfpdifyebnn3111-89-36 07:22:00* Test Item Value Reference Range Interpretation Comments HDL Cholesterol (test code = 2085-9) 16 40-60 L [facility] HospitalCholesterol/HDL Xvrzj7207-22-67 07:22:00 * Test Item Value Reference Range Interpretation Comments Cholesterol/HDL Ratio (test code = 9830-1) 4.9 3.0-3.6 H [facility] HospitalFluoroscopic procedure less than one hour flmmgevr9278-76-36 06:24:00* Test Item Value Reference Range Interpretation Comments Hemoglobin A1c Percent (test code = Hemoglobin A1c Percent) 5.1 4.0-7.0 [facility] Hospitalerum or plasma magnesium measurement (mass/volume)2019-11-28 06:24:00* Test Item Value Reference Range Interpretation Comments Magnesium Level (test code = 04648-7) 2.0 1.3-2.1 [facility] Hospitalerum or plasma triglyceride measurement (mass/volume)2019-11-28 06:24:00* Test Item Value Reference Range Interpretation Comments Triglycerides Level (test code = 2571-8) 90 0-149 [facility] Hospitalerum or plasma cholesterol measurement (mass/volume)2019-11-28 06:24:00* Test Item Value Reference Range Interpretation Comments Cholesterol Level (test code = 2093-3) 78 0-199 Less than 200 mg/dL Low Qozo225 - 239 mg/dL Borderline Hqpu707 m g/dl and greater High Risk [facility] Hospitalerum or plasma cholesterol in LDL measurement (mass/volume) 2019-11-28 06:24:00* Test Item Value Reference Range Interpretation Comments LDL Cholesterol (test code = 2089-1) 44 60-130 [facility] Hospitalerum or plasma cholesterol in HDL measurement (mass/volume)2019-11-28 06:24:00* Test Item Value Reference Range Interpretation Comments HDL Cholesterol (test code = 2085-9) 16 40-60 [facility] Hospitalerum or plasma total cholesterol/cholesterol in HDL mass zdmje7958-84-49 06:24:00* Test Item Value Reference Range Interpretation Comments Cholesterol/HDL Ratio (test code = 9830-1) 4.9 3.0-3.6 [facility] HospitalFluoroscopic procedure less than one hour lztctimt2212-76-77 22:17:00* Test Item Value Reference Range Interpretation Comments Chlamydia pneumoniae DNA (PCR) (test code = Chlamydia pneumoniae DNA (PCR)) NOT DETECTED NOT DETECT Test performed at [facility] [place], [place] [address]RESULTS HAVE BEEN CALLED TO THE PHYSICIANCHI [facility] HospitalRespiratory virus afvop0233-74-70 22:17:00* Test Item Value Reference Range Interpretation Comments Influenza Type A (RT-PCR) (test code = 261275258) NOT DETECTED NOT DETECT [facility] HospitalFluoroscopic procedure less than one hour ppgwsyhm6690-68-96 22:17:00* Test Item Value Reference Range Interpretation Comments Mycoplasma pneumoniae (PCR) (test code = Mycoplasma pn eumoniae (PCR)) NOT DETECTED NOT DETECT [facility] HospitalRespiratory virus rrlgn5068-74-29 22:17:00* Test Item Value Reference Range Interpretation Comments Influenza Type B (RT-PCR) (test code = 878791570) NOT DETECTED NOT DETECT [facility] HospitalRespiratory virus jdbnt4637-82-67 22:17:00* Test Item Value Reference Range Interpretation Comments Respiratory Syncytial Virus (PCR) (test code = 010456061) NO T DETECTED NOT DETECT [facility] HospitalRespiratory virus uztiu7916-54-69 22:17:00* Test Item Value Reference Range Interpretation Comments Bordetella pertussis DNA (PCR) (test code = 318979490) NOT DETEC RONA NOT DETECT [facility] HospitalRespiratory virus ugbhv4774-10-27 22:17:00* Test Item Value Reference Range Interpretation Comments Parainfluenza Type 1 (PCR) (test code = 134125902) NOT DETECTED NOT DETECT [facility] HospitalRespiratory virus bqops2545-47-61 22:17:00* Test Item Value Reference Range Interpretation Comments Parainfluenza Type 2 (PCR) (test code = 155635407) NOT DETECTED NOT DETECT [facility] HospitalRespiratory virus ojiss2719-39-66 22:17:00* Test Item Value Reference Range Interpretation Comments Parainfluenza Type 3 (PCR) (test code = 187388264) NOT DETECTED NOT DETECT [facility] HospitalFluoroscopic procedure less than one hour gkydssgv1098-87-01 22:17:00* Test Item Value Reference Range Interpretation Comments Parainfluenza Type 4 (PCR) (test code = Parainfluenza Type 4 (PCR)) NOT DETECTED NOT DETECT [facility] HospitalRespiratory virus igivh9521-75-18 22:17:00* Test Item Value Reference Range Interpretation Comments Rhinovirus (PCR) (test code = 368466586) NOT DETECTED NOT DETECT [facility] HospitalRespiratory virus slcyv1571-47-01 22:17:00* Test Item Value Reference Range Interpretation Comments Human Metapneumovirus (PCR) (test code = 239117448) DETECTED NO T DETECT ABNORMALCHI [facility] HospitalRespiratory virus ahgrf6057-44-88 22:17:00* Test Item Value Reference Range Interpretation Comments Adenovirus (PCR) (test code = 355691456) NOT DETECTED NOT DETECT [facility] HospitalFluoroscopic procedure less than one hour kgzispxp1157-29-84 22:17:00* Test Item Value Reference Range Interpretation Comments Coronavirus Type 229E (PCR) (test code = Coronavirus T ype 229E (PCR)) NOT DETECTED NOT DETECT Test performed at [facility] [place] [address]RESULTS HAVE BEEN CALLED TO THE PHYSICIANMemorial Hermann [facility] HospitalFluoroscopic procedure less than one hour ilprgwwk9481-50-43 22:17:00* Test Item Value Reference Range Interpretation Comments Coronavirus Type HKU1 (PCR) (test code = Coronavirus T ype HKU1 (PCR)) NOT DETECTED NOT DETECT [facility] HospitalFluoroscopic procedure less than one hour cxaxivap1146-00-07 22:17:00* Test Item Value Reference Range Interpretation Comments Coronavirus Type NL63 (PCR) (test code = Coronavirus T ype NL63 (PCR)) NOT DETECTED NOT DETECT [facility] HospitalFluoroscopic procedure less than one hour mstxkcag2308-48-17 22:17:00* Test Item Value Reference Range Interpretation Comments Coronavirus Type OC43 (PCR) (test code = Coronavirus T ype OC43 (PCR)) NOT DETECTED NOT DETECT [facility] HospitalFluoroscopic procedure less than one hour fxstxtfw8868-57-58 22:17:00* Test Item Value Reference Range Interpretation Comments Coronavirus (PCR) (test code = Coronavirus (PCR)) NOT DETECTED NOTD ETECTED CORONAVIRUS QFXT-VCK-0-RT-PCR (RESPIRATORY)This test has been validated but FDA' s independent review of the validation is pending. This test is performed as a l aboratory developed test; independent review of the validation under FDA's Emerg ency Use Authorization (EUA) authority will be performed according to current [facility] requirements.We will continue to follow federal and state requirements fo r both notification of results and confirmatory testing that is required by [facility] her agency.This test was developed and its performance characteristics determine d by [employer]. It has not been cleared or approved by the U.S. Food and Drug Administration. Results should be used in conjunction with clinical finding s, and should not form the sole basis for a diagnosis or treatment decision.Spec imen sent to [facility] and [facility], [address] [place] [address]. [address]NTFMemorial Hermann Cypress HospitalPlatelet Geuujghh9448-51-37 21:06:00* Test Item Value Reference Range Interpretation Comments Platelet Estimate (test code = 92608-3) ADEQUATE [facility] HospitalPlatelet Morphology Eoektnc4318-57-07 21:06:00* Test Item Value Reference Range Interpretation Comments Platelet Morphology Comment (test code = 52697-8) NORMAL [facility] HospitalHypochromasia2020-03-20 21:06:00* Test Item Value Reference Range Interpretation Comments Hypochromasia (test code = 728-6) SLIGHT [facility] HospitalAnisocytosis2020-03-20 21:06:00* Test Item Value Reference Range Interpretation Comments Anisocytosis (test code = 702-1) SLIGHT [facility] HospitalRed Cell Morphology Pjjxrnq7474-69-52 21:06:00* Test Item Value Reference Range Interpretation Comments Red Cell Morphology Comment (test code = 6742-1) NORMAL [facility] HospitalCT CHEST R3390-82-51 20:40:[address] [address] Patient Name: CHRISTINE OTTO MR #: [id number] : 1990 Age/Sex: 29/F Req #: [id number] Adm Physician: Ordered by: ERIC KWAN NP Report #: [id number] Location: ER Room/Bed: Procedure: CT/CT CHEST W [...] COPY TO: ERIC KWAN NP Lactic Acid Drmsy2523-91-98 20:37:00* Test Item Value Reference Range Interpretation Comments Lactic Acid Level (test code = Lactic Acid Level) 0.7 0.5- 2.0 [facility] HospitalGroup A Streptococcus Rosuoe3506-88-64 20:28:00* Test Item Value Reference Range Interpretation Comments Group A Streptococcus Screen (test code = 61609-3) NEGATIVE NEG ATIVE [facility] Hospitaltreptococcus pyogenes antigen detection in nrmmil3478-02-15 20:10:00* Test Item Value Reference Range Interpretation Comments Group A Streptococcus Screen (test code = 77310-5) NEGATIVE NEG ATIVE [facility] HospitalFluoroscopic procedure less than one hour hgwdkxwh8066-89-36 19:37:00* Test Item Value Reference Range Interpretation Comments Lactic Acid Level (test code = Lactic Acid Level) 0.7 0.5- 2.0 [facility] HospitalHuman Chorionic Gonadotropin, Qual 2019-11-27 19:22:00* Test Item Value Reference Range Interpretation Comments Human Chorionic Gonadotropin, Qual (test code = 2118-8) NEGATIVE NEGATIVE [facility] HospitalTroponin J9127-09-19 19:19:00* Test Item Value Reference Range Interpretation Comments Troponin I (test code = OHF6787) 0.034 0-0.300 [facility] HospitalB-Type Natriuretic Ygluhfk8725-70-58 19:18:00* Test Item Value Reference Range Interpretation Comments B-Type Natriuretic Peptide (test code = 21940-2) 14.3 0-100 [facility] HospitalBlood vuomxqj9662-29-31 18:27:00* Test Item Value Reference Range Interpretation Comments Blood Culture (test code = 82605459) NO GROWTH AFTER 5 DAYS, FINAL REPORT [facility] HospitalBlood platelets count by estimate (number/volume)2019-11-27 18:26:00* Test Item Value Reference Range Interpretation Comments Platelet Estimate (test code = 98620-0) ADEQUATE [facility] HospitalPlatelet mdxnfnrhwl1035-99-58 18:26:00* Test Item Value Reference Range Interpretation Comments Platelet Morphology Comment (test code = 93585-3) NORMAL [facility] HospitalBlluver[facility] hypochromia detection by light dxwthcpvny0092-42-03 18:26:00* Test Item Value Reference Range Interpretation Comments Hypochromasia (test code = 728-6) SLIGHT [facility] anisocytosis detection by light skbinvyucw6138-10-00 18:26:00* Test Item Value Reference Range Interpretation Comments Anisocytosis (test code = 702-1) SLIGHT [facility] HospitalRBC hinsxyxsrj5527-60-05 18:26:00* Test Item Value Reference Range Interpretation Comments Red Cell Morphology Comment (test code = 6742-1) NORMAL [facility] HospitalBNP Urt-kUdv2847-41-20 18:26:00* Test Item Value Reference Range Interpretation Comments B-Type Natriuretic Peptide (test code = 24243-4) 14.3 0-100 [facility] HospitalTroponin I measurement by highly sensitive enzyme megpwsqsabb3190-11-63 18:26:00* Test Item Value Reference Range Interpretation Comments Troponin I (test code = 02779-5) 0.034 0-0.300 [facility] Hospitalerum or plasma choriogonadotropin ( test) hbevlcfkb0203-91-97 18:26:00* Test Item Value Reference Range Interpretation Comments Human Chorionic Gonadotropin, Qual (test code = 2118-8) NEGATIVE NEGATIVE [facility] HospitalCHEST SINGLE (NOT PORTABLE)2019-11-24 22:14:00 [facility] [address] [place] [address] Patient Name: CHRISTINE OTTO MR #: [id number] : 1990 Age/Sex: 29/F Req #: [id number] Adm Physician: Ordered by: JONO RICH MD Report #: [id number] Location: ER Room/Bed: Procedur e: [id number] DX/CHEST SINGLE (NOT PORTABLE) Exam Date: 11/24/19 [...] JONO PABLO MD Influenza Virus Types A,B Cyzrrog2727-39-87 21:50:00* Test Item Value Reference Range Interpretation Comments Influenza Virus Types A,B Antigen (test code = 86553-1) NEGATIVE NEGATIVE [facility] HospitalGroup A Streptococcus Tiurgd4476-49-71 21:43:00* Test Item Value Reference Range Interpretation Comments Group A Streptococcus Screen (test code = 24377-6) NEGATIVE NEG ATIVE [facility] HospitalUrine JTQ9921-65-64 21:27:00* Test Item Value Reference Range Interpretation Comments Urine WBC (test code = 5821-4) NONE 0-5 [facility] HospitalUrine XGG7883-71-52 21:27:00* Test Item Value Reference Range Interpretation Comments Urine RBC (test code = 97095-7) NONE 0-5 [facility] HospitalUrine Qriukthb4908-16-92 21:27:00* Test Item Value Reference Range Interpretation Comments Urine Bacteria (test code = 91054-4) RARE NONE [facility] HospitalUrine Epithelial Vufur6155-70-41 21:27:00 * Test Item Value Reference Range Interpretation Comments Urine Epithelial Cells (test code = 95362-7) MODERATE NONE [facility] HospitalUrine ITQ7064-22-10 21:27:00* Test Item Value Reference Range Interpretation Comments Urine WBC (test code = 5821-4) NONE 0-5 [facility] HospitalUrine AXU0271-74-60 21:27:00* Test Item Value Reference Range Interpretation Comments Urine RBC (test code = 83481-1) NONE 0-5 [facility] Xauytrfp0316-48-50 21:27:00* Test Item Value Reference Range Interpretation Comments Urine Bacteria (test code = 90795-5) RARE NONE [facility] HospitalUrine Epithelial Zhegy8664-55-25 21:27:00 * Test Item Value Reference Range Interpretation Comments Urine Epithelial Cells (test code = 24343-2) MODERATE NONE [facility] HospitalUrine ZXN6108-87-32 21:27:00* Test Item Value Reference Range Interpretation Comments Urine WBC (test code = 5821-4) NONE 0-5 [facility] HospitalUrine BFQ4537-47-69 21:27:00* Test Item Value Reference Range Interpretation Comments Urine RBC (test code = 87578-8) NONE 0-5 [facility] HospitalUrine Qeprnukf4287-48-05 21:27:00* Test Item Value Reference Range Interpretation Comments Urine Bacteria (test code = 51073-4) RARE NONE [facility] HospitalUrine Epithelial Eeuvg0001-31-97 21:27:00 * Test Item Value Reference Range Interpretation Comments Urine Epithelial Cells (test code = 61013-8) MODERATE NONE [facility] HospitalUrine Bejsc2525-26-54 21:21:00* Test Item Value Reference Range Interpretation Comments Urine Color (test code = 5778-6) YELLOW YELLOW [facility] HospitalUrine Ditdpue7245-37-87 21:21:00* Test Item Value Reference Range Interpretation Comments Urine Clarity (test code = 61169-9) SL CLOUDY CLEAR [facility] HospitalUrine Specific Pxwtaze4087-78-94 21:21:00 * Test Item Value Reference Range Interpretation Comments Urine Specific [place] (test code = 5811-5) 1.025 1.010-1.02 5 [facility] HospitalUrine qZ8670-00-67 21:21:00* Test Item Value Reference Range Interpretation Comments Urine pH (test code = 96497-4) 6.5 5-7 [facility] HospitalUrine Leukocyte Xlgsmlxt1899-88-57 21:21:00* Test Item Value Reference Range Interpretation Comments Urine Leukocyte Esterase (test code = 5799-2) NEGATIVE NEGATIVE [facility] HospitalUrine Subdmxp9308-36-31 21:21:00* Test Item Value Reference Range Interpretation Comments Urine Nitrite (test code = 66507-9) NEGATIVE NEGATIVE [facility] HospitalUrine Vwotzyd6475-05-28 21:21:00* Test Item Value Reference Range Interpretation Comments Urine Protein (test code = 5804-0) 1+ NEGATIVE H [facility] HospitalUrine Glucose (UA)2019-11-23 21:21:00* Test Item Value Reference Range Interpretation Comments Urine Glucose (UA) (test code = 2349-9) NEGATIVE NEGATIVE [facility] HospitalUrine Gvzrqey0764-68-68 21:21:00* Test Item Value Reference Range Interpretation Comments Urine Ketones (test code = 90768-4) NEGATIVE NEGATIVE [facility] HospitalUrine Nzmpfndvqvyt8238-71-27 21:21:00* Test Item Value Reference Range Interpretation Comments Urine Urobilinogen (test code = 80879-1) 1 0.2-1 [facility] HospitalUrine Fzmshxwpc4575-42-69 21:21:00* Test Item Value Reference Range Interpretation Comments Urine Bilirubin (test code = 1978-6) NEGATIVE NEGATIVE [facility] HospitalUrine Xrjgw7738-25-86 21:21:00* Test Item Value Reference Range Interpretation Comments Urine Blood (test code = 26873-1) NEGATIVE NEGATIVE [facility] Qfqdk1316-15-10 21:21:00* Test Item Value Reference Range Interpretation Comments Urine Color (test code = 5778-6) YELLOW YELLOW [facility] Fdudjhg9352-40-69 21:21:00* Test Item Value Reference Range Interpretation Comments Urine Clarity (test code = 24553-1) SL CLOUDY CLEAR [facility] HospitalU[facility] Specific Xgxfmas9516-21-93 21:21:00 * Test Item Value Reference Range Interpretation Comments Urine Specific [place] (test code = 5811-5) 1.025 1.010-1.02 5 [facility] [id number] 21:21:00* Test Item Value Reference Range Interpretation Comments Urine pH (test code = 27677-2) 6.5 5-7 [facility] Leukocyte Awyyqrhj7328-69-13 21:21:00* Test Item Value Reference Range Interpretation Comments Urine Leukocyte Esterase (test code = 5799-2) NEGATIVE NEGATIVE [facility] Czbkxff6106-25-22 21:21:00* Test Item Value Reference Range Interpretation Comments Urine Nitrite (test code = 77218-8) NEGATIVE NEGATIVE [facility] Zoofqyl6832-29-46 21:21:00* Test Item Value Reference Range Interpretation Comments Urine Protein (test code = 5804-0) 1+ NEGATIVE H [facility] HospitalU[facility] Glucose (UA)2019-11-23 21:21:00* Test Item Value Reference Range Interpretation Comments Urine Glucose (UA) (test code = 2349-9) NEGATIVE NEGATIVE [facility] Clboxbk2234-16-47 21:21:00* Test Item Value Reference Range Interpretation Comments Urine Ketones (test code = 36661-1) NEGATIVE NEGATIVE [facility] Evvcfznmroqo6824-01-94 21:21:00* Test Item Value Reference Range Interpretation Comments Urine Urobilinogen (test code = 10173-9) 1 0.2-1 [facility] Cknwoqzbm4526-64-93 21:21:00* Test Item Value Reference Range Interpretation Comments Urine Bilirubin (test code = 1978-6) NEGATIVE NEGATIVE [facility] Xefom1177-33-00 21:21:00* Test Item Value Reference Range Interpretation Comments Urine Blood (test code = 96583-0) NEGATIVE NEGATIVE [facility] Brloj4408-28-34 21:21:00* Test Item Value Reference Range Interpretation Comments Urine Color (test code = 5778-6) YELLOW YELLOW [facility] Gizphyi0729-27-51 21:21:00* Test Item Value Reference Range Interpretation Comments Urine Clarity (test code = 07314-2) SL CLOUDY CLEAR [facility] Specific Bozfvzg3379-08-98 21:21:00 * Test Item Value Reference Range Interpretation Comments Urine Specific [place] (test code = 5811-5) 1.025 1.010-1.02 5 [facility] dE8935-63-32 21:21:00* Test Item Value Reference Range Interpretation Comments Urine pH (test code = 20165-7) 6.5 5-7 [facility] Leukocyte Tldswouo4119-08-54 21:21:00* Test Item Value Reference Range Interpretation Comments Urine Leukocyte Esterase (test code = 5799-2) NEGATIVE NEGATIVE [facility] Smdrvfd5784-00-13 21:21:00* Test Item Value Reference Range Interpretation Comments Urine Nitrite (test code = 95378-7) NEGATIVE NEGATIVE [facility] Gnvcjcz1021-34-30 21:21:00* Test Item Value Reference Range Interpretation Comments Urine Protein (test code = 5804-0) 1+ NEGATIVE H [facility] Glucose (UA)2019-11-23 21:21:00* Test Item Value Reference Range Interpretation Comments Urine Glucose (UA) (test code = 2349-9) NEGATIVE NEGATIVE [facility] Fluoefe3402-29-43 21:21:00* Test Item Value Reference Range Interpretation Comments Urine Ketones (test code = 49246-7) NEGATIVE NEGATIVE [facility] Thtzftlocdwt6669-16-27 21:21:00* Test Item Value Reference Range Interpretation Comments Urine Urobilinogen (test code = 42274-5) 1 0.2-1 [facility] Xvzppamuz1610-55-40 21:21:00* Test Item Value Reference Range Interpretation Comments Urine Bilirubin (test code = 1978-6) NEGATIVE NEGATIVE [facility] Szrde1152-68-68 21:21:00* Test Item Value Reference Range Interpretation Comments Urine Blood (test code = 03351-9) NEGATIVE NEGATIVE [facility] HospitalCreatine Xdewro5017-99-14 21:07:00* Test Item Value Reference Range Interpretation Comments Creatine Kinase (test code = 2157-6) 397 29-168 H [facility] HospitalCreatine Hvoups3806-88-00 21:07:00* Test Item Value Reference Range Interpretation Comments Creatine Kinase (test code = 2157-6) 397 29-168 H [facility] HospitalCreat[facility] Ckehwj2681-04-41 21:07:00* Test Item Value Reference Range Interpretation Comments Creatine Kinase (test code = 2157-6) 397 29-168 H [facility] HospitalUrine color pdbpvbjhfrsrn3586-25-40 21:05:00* Test Item Value Reference Range Interpretation Comments Urine Color (test code = 5778-6) YELLOW YELLOW [facility] HospitalU[facility] btknzya6081-25-72 21:05:00* Test Item Value Reference Range Interpretation Comments Urine Clarity (test code = 54807-1) SL [facility]DY [facility] by Test strip 2019-11-23 21:05:00* Test Item Value Reference Range Interpretation Comments Urine Specific [place] (test code = 5811-5) 1.025 1.010-1.02 5 [facility] pH measurement by automated test bsopt8683-66-23 21:05:00* Test Item Value Reference Range Interpretation Comments Urine pH (test code = 88496-1) 6.5 5-7 [facility] HospitalU[facility] leukocyte esterase detection by kvsbbggr2878-19-98 21:05:00* Test Item Value Reference Range Interpretation Comments Urine Leukocyte Esterase (test code = 5799-2) NEGATIVE NEGATIVE [facility] HospitalU[facility] nitrite zhdcobdhe7242-41-75 21:05:00* Test Item Value Reference Range Interpretation Comments Urine Nitrite (test code = 09204-6) NEGATIVE NEGATIVE [facility] HospitalUrine protein measurement by test strip (mass/volume)2019-11-23 21:05:00* Test Item Value Reference Range Interpretation Comments Urine Protein (test code = 5804-0) 1+ NEGATIVE [facility] HospitalU[facility] glucose jsmzqzbrw5082-58-26 21:05:00* Test Item Value Reference Range Interpretation Comments Urine Glucose (UA) (test code = 2349-9) NEGATIVE NEGATIVE [facility] HospitalUrine ketones detection by automated test dryvi0871-93-67 21:05:00* Test Item Value Reference Range Interpretation Comments Urine Ketones (test code = 92126-7) NEGATIVE NEGATIVE [facility] HospitalUrine urobilinogen measurement by test strip (mass/volume)2019-11-23 21:05:00* Test Item Value Reference Range Interpretation Comments Urine Urobilinogen (test code = 80561-9) 1 0.2-1 [facility] HospitalU[facility] total bilirubin measurement (mass/volume)2019-11-23 21:05:00* Test Item Value Reference Range Interpretation Comments Urine Bilirubin (test code = 1978-6) NEGATIVE NEGATIVE [facility] HospitalU[facility] erythrocytes lqyqmcqsj5218-03-26 21:05:00* Test Item Value Reference Range Interpretation Comments Urine Blood (test code = 57518-7) NEGATIVE NEGATIVE [facility] HospitalAutomated urine sediment leukocyte count by microscopy (number/high power field)2019-11-23 21:05:00* Test Item Value Reference Range Interpretation Comments Urine WBC (test code = 5821-4) NONE 0-5 [facility] HospitalErythrocytes detection in urine sediment by light hsqaiervie3808-21-54 21:05:00* Test Item Value Reference Range Interpretation Comments Urine RBC (test code = 96714-5) NONE 0-5 [facility] HospitalBacteria detection in urine sediment by light kbbonuupxk8164-40-04 21:05:00* Test Item Value Reference Range Interpretation Comments Urine Bacteria (test code = 18379-7) RARE NONE [facility] HospitalEpithelial cells detection in urine sediment by light lvvsjerluj9182-54-64 21:05:00* Test Item Value Reference Range Interpretation Comments Urine Epithelial Cells (test code = 28113-5) MODERATE NONE [facility] HospitalHuman Chorionic Gonadotropin, Qual 2019-11-23 20:55:00* Test Item Value Reference Range Interpretation Comments Human Chorionic Gonadotropin, Qual (test code = 2118-8) NEGATIVE NEGATIVE [facility] Chorionic Gonadotropin, Qual 2019-11-23 20:55:00* Test Item Value Reference Range Interpretation Comments Human Chorionic Gonadotropin, Qual (test code = 2118-8) NEGATIVE NEGATIVE [facility] HospitalInfluenza Virus Types A,B Antigen 2019-11-23 20:33:00* Test Item Value Reference Range Interpretation Comments Influenza Virus Types A,B Antigen (test code = 02145-8) NEGATIVE NEGATIVE [facility] HospitalCreatine Kinase [id number] 20:31:00* Test Item Value Reference Range Interpretation Comments Creatine Kinase MB (test code = 27402-1) 4.20 0-5.0 [facility] HospitalTroponin [id number] 20:31:00* Test Item Value Reference Range Interpretation Comments Troponin I (test code = BXQ9401) 0.039 0-0.300 [facility] HospitalCreatine Kinase WX7293-98-15 20:31:00* Test Item Value Reference Range Interpretation Comments Creatine Kinase MB (test code = 54137-4) 4.20 0-5.0 [facility] [place] [id number] 20:31:00* Test Item Value Reference Range Interpretation Comments Troponin I (test code = ZGJ0543) 0.039 0-0.300 [facility] HospitalCreatine Kinase [id number] 20:31:00* Test Item Value Reference Range Interpretation Comments Creatine Kinase MB (test code = 33572-5) 4.20 0-5.0 [facility] HospitalGroup A Streptococcus Nnqvij9207-55-27 20:24:00* Test Item Value Reference Range Interpretation Comments Group A Streptococcus Screen (test code = 90406-6) NEGATIVE NEG ATIVE [facility]odium Xixdj7986-10-05 20:22:00* Test Item Value Reference Range Interpretation Comments Sodium Level (test code = 2951-2) 132 136-145 L [facility] HospitalPotassium Kqybr2266-34-72 20:22:00* Test Item Value Reference Range Interpretation Comments Potassium Level (test code = 2823-3) 3.9 3.5-5.1 [facility] HospitalChloride Idcay8450-39-82 20:22:00* Test Item Value Reference Range Interpretation Comments Chloride Level (test code = 2075-0) 100 98-107 [facility] HospitalCarbon Dioxide Prgik9759-40-54 20:22:00* Test Item Value Reference Range Interpretation Comments Carbon Dioxide Level (test code = 2028-9) 28 22-29 [facility] HospitalAnion Xpv6133-80-37 20:22:00* Test Item Value Reference Range Interpretation Comments Anion Gap (test code = 31964-0) 7.9 8-16 L [facility] HospitalBlood Urea Kwlycutk7511-38-61 20:22:00* Test Item Value Reference Range Interpretation Comments Blood Urea Nitrogen (test code = 3094-0) 12 7-26 [facility] HospitalCreatinine2020-03-16 20:22:00* Test Item Value Reference Range Interpretation Comments Creatinine (test code = 2160-0) 1.06 0.57-1.11 [facility] HospitalBUN/Creatinine Aajtd7981-34-34 20:22:00* Test Item Value Reference Range Interpretation Comments BUN/Creatinine Ratio (test code = 3097-3) 11 6-25 [facility] HospitalEstimat Glomerular Filtration Rate 2019-11-23 20:22:00* Test Item Value Reference Range Interpretation Comments Estimat Glomerular Filtration Rate (test code = 240986969) > 60 >60 Ranges were taken from the National Kidney Disease Education Program and the [facility] [employer] literature.Reference ranges:60 or greater: Qiffxl23-89 ( for 3 consecutive months): Chronic kidney disease 15 or less: Kidney failureMemorial Hermann Cypress HospitalGlucose Xluze9221-46-70 20:22:00* Test Item Value Reference Range Interpretation Comments Glucose Level (test code = WLC2994) 97 74-118 [facility] HospitalCalcium Hlelg5826-99-46 20:22:00* Test Item Value Reference Range Interpretation Comments Calcium Level (test code = 55179-1) 8.8 8.4-10.2 [facility] Hospitalodium Gcoig0239-31-73 20:22:00* Test Item Value Reference Range Interpretation Comments Sodium Level (test code = 2951-2) 132 136-145 L [facility] HospitalPotassium Dxqaq2866-93-60 20:22:00* Test Item Value Reference Range Interpretation Comments Potassium Level (test code = 2823-3) 3.9 3.5-5.1 [facility] HospitalChloride Mhyps9474-78-18 20:22:00* Test Item Value Reference Range Interpretation Comments Chloride Level (test code = 2075-0) 100 98-107 [facility] HospitalCarbon Dioxide Iiuep6140-42-19 20:22:00* Test Item Value Reference Range Interpretation Comments Carbon Dioxide Level (test code = 2028-9) 28 22-29 [facility] HospitalAnion Feq7809-00-29 20:22:00* Test Item Value Reference Range Interpretation Comments Anion Gap (test code = 11202-1) 7.9 8-16 L [facility] HospitalBlood Urea Uztekavo5730-40-24 20:22:00* Test Item Value Reference Range Interpretation Comments Blood Urea Nitrogen (test code = 3094-0) 12 7-26 [facility] HospitalCreatinine2020-03-16 20:22:00* Test Item Value Reference Range Interpretation Comments Creatinine (test code = 2160-0) 1.06 0.57-1.11 [facility] HospitalBUN/Creatinine Ozths4428-53-76 20:22:00* Test Item Value Reference Range Interpretation Comments BUN/Creatinine Ratio (test code = 3097-3) 11 6-25 [facility] HospitalEstimat Glomerular Filtration Rate 2019-11-23 20:22:00* Test Item Value Reference Range Interpretation Comments Estimat Glomerular Filtration Rate (test code = 036461439) > 60 >60 Ranges were taken from the National Kidney Disease Education Program and the [employer] [employer] literature.Reference ranges:60 or greater: Nlfhcj18-21 ( for 3 consecutive months): Chronic kidney disease 15 or less: Kidney failureMemorial Hermann Cypress HospitalGlucose Vglcr3957-76-04 20:22:00* Test Item Value Reference Range Interpretation Comments Glucose Level (test code = YYS7909) 97 74-118 [facility] HospitalCalcium Lbxar0356-54-86 20:22:00* Test Item Value Reference Range Interpretation Comments Calcium Level (test code = 77838-9) 8.8 8.4-10.2 [facility] HospitalProthrombin Yrqt7237-66-03 20:19:00* Test Item Value Reference Range Interpretation Comments Prothrombin Time (test code = 5902-2) 13.6 11.9-14.5 [facility] HospitalProthromb Time International Ratio 2019-11-23 20:19:00* Test Item Value Reference Range Interpretation Comments Prothromb Time International Ratio (test code = 6301-6) 0.98 Oral Anticoagulant Therapy INR Values:1. Low Intensity Therapy 1.5 - 2.02 . Moderate Intensity Therapy 2.0 - 3.03. High Intensity Therapy(1) 2.5 - 3. 54. High Intensity Therapy(2) 3.0 - 4.05. Panic Value INR > 5.0 [facility] HospitalActivated Partial Thromboplast Time 2019-11-23 20:19:00* Test Item Value Reference Range Interpretation Comments Activated Partial Thromboplast Time (test code = 46233-3) 27.9 23.8-35.5 [facility] HospitalProthrombin Ipur0081-16-32 20:19:00* Test Item Value Reference Range Interpretation Comments Prothrombin Time (test code = 5902-2) 13.6 11.9-14.5 [facility] HospitalProthromb Time International Ratio 2019-11-23 20:19:00* Test Item Value Reference Range Interpretation Comments Prothromb Time International Ratio (test code = 6301-6) 0.98 Oral Anticoagulant Therapy INR Values:1. Low Intensity Therapy 1.5 - 2.02 . Moderate Intensity Therapy 2.0 - 3.03. High Intensity Therapy(1) 2.5 - 3. 54. High Intensity Therapy(2) 3.0 - 4.05. Panic Value INR > 5.0 [facility] HospitalActivated Partial Thromboplast Time 2019-11-23 20:19:00* Test Item Value Reference Range Interpretation Comments Activated Partial Thromboplast Time (test code = 40070-3) 27.9 23.8-35.5 [facility] HospitalProthrombin Emuw8420-40-02 20:19:00* Test Item Value Reference Range Interpretation Comments Prothrombin Time (test code = 5902-2) 13.6 11.9-14.5 [facility] HospitalProthromb Time International Ratio 2019-11-23 20:19:00* Test Item Value Reference Range Interpretation Comments Prothromb Time International Ratio (test code = 6301-6) 0.98 Oral Anticoagulant Therapy INR Values:1. Low Intensity Therapy 1.5 - 2.02 . Moderate Intensity Therapy 2.0 - 3.03. High Intensity Therapy(1) 2.5 - 3. 54. High Intensity Therapy(2) 3.0 - 4.05. Panic Value INR > 5.0 [facility] HospitalActivated Partial Thromboplast Time 2019-11-23 20:19:00* Test Item Value Reference Range Interpretation Comments Activated Partial Thromboplast Time (test code = 21385-5) 27.9 23.8-35.5 [facility] HospitalWhite Blood Nvzuq9919-26-02 20:08:00* Test Item Value Reference Range Interpretation Comments White Blood Count (test code = 6690-2) 6.24 4.8-10.8 [facility] HospitalRed Blood Dhmux6600-85-76 20:08:00* Test Item Value Reference Range Interpretation Comments Red Blood Count (test code = 789-8) 3.43 3.6-5.1 L [facility] HospitalHemoglobin2020-03-16 20:08:00* Test Item Value Reference Range Interpretation Comments Hemoglobin (test code = 73133-1) 10.3 12.0-16.0 L [facility] HospitalHematocrit2020-03-16 20:08:00* Test Item Value Reference Range Interpretation Comments Hematocrit (test code = 4544-3) 31.4 34.2-44.1 L [facility] HospitalMean Corpuscular Gjzbue7340-90-55 20:08:00* Test Item Value Reference Range Interpretation Comments Mean Corpuscular Volume (test code = 787-2) 91.5 81-99 [facility] HospitalMean Corpuscular Cixkgchuns8945-01-20 20:08:00* Test Item Value Reference Range Interpretation Comments Mean Corpuscular Hemoglobin (test code = 785-6) 30.0 28-32 [facility] HospitalMean Corpuscular Hemoglobin Concent 2019-11-23 20:08:00* Test Item Value Reference Range Interpretation Comments Mean Corpuscular Hemoglobin Concent (test code = 786-4) 32.8 31-35 [facility] HospitalRed Cell Distribution Gpgux9197-03-91 20:08:00* Test Item Value Reference Range Interpretation Comments Red Cell Distribution Width (test code = 04406-8) 13.6 11.7 -14.4 [facility] HospitalPlatelet Sjejk0393-00-09 20:08:00* Test Item Value Reference Range Interpretation Comments Platelet Count (test code = 777-3) 196 140-360 [facility] HospitalNeutrophils (%) (Auto)2019-11-23 20:08:00 * Test Item Value Reference Range Interpretation Comments Neutrophils (%) (Auto) (test code = 73905-1) 81.3 38.7-80.0 H [facility] HospitalLymphocytes (%) (Auto)2019-11-23 20:08:00 * Test Item Value Reference Range Interpretation Comments Lymphocytes (%) (Auto) (test code = 736-9) 13.8 18.0-39.1 L [facility] HospitalMonocytes (%) (Auto)2019-11-23 20:08:00* Test Item Value Reference Range Interpretation Comments Monocytes (%) (Auto) (test code = 5905-5) 4.2 4.4-11.3 L [facility] HospitalEosinophils (%) (Auto)2019-11-23 20:08:00 * Test Item Value Reference Range Interpretation Comments Eosinophils (%) (Auto) (test code = 713-8) 0.2 0.0-6.0 [facility] HospitalBasophils (%) (Auto)2019-11-23 20:08:00* Test Item Value Reference Range Interpretation Comments Basophils (%) (Auto) (test code = 706-2) 0.2 0.0-1.0 [facility] HospitalIM GRANULOCYTES %2019-11-23 20:08:00* Test Item Value Reference Range Interpretation Comments IM GRANULOCYTES % (test code = IM GRANULOCYTES %) 0.3 0.0- 1.0 [facility] HospitalNeutrophils # (Auto)2019-11-23 20:08:00* Test Item Value Reference Range Interpretation Comments Neutrophils # (Auto) (test code = 751-8) 5.1 2.1-6.9 [facility] HospitalLymphocytes # (Auto)2019-11-23 20:08:00* Test Item Value Reference Range Interpretation Comments Lymphocytes # (Auto) (test code = 76524-7) 0.9 1.0-3.2 L [facility] HospitalMonocytes # (Auto)2019-11-23 20:08:00* Test Item Value Reference Range Interpretation Comments Monocytes # (Auto) (test code = 742-7) 0.3 0.2-0.8 [facility] HospitalEosinophils # (Auto)2019-11-23 20:08:00* Test Item Value Reference Range Interpretation Comments Eosinophils # (Auto) (test code = 711-2) 0.0 0.0-0.4 [facility] HospitalBasophils # (Auto)2019-11-23 20:08:00* Test Item Value Reference Range Interpretation Comments Basophils # (Auto) (test code = 704-7) 0.0 0.0-0.1 [facility] HospitalAbsolute Immature Granulocyte (auto 2019-11-23 20:08:00* Test Item Value Reference Range Interpretation Comments Absolute Immature Granulocyte (auto (dana t code = Absolute Immature Granulocyte (auto) 0.02 0-0.1 [facility] HospitalWhite Blood Bdgag6275-20-81 20:08:00* Test Item Value Reference Range Interpretation Comments White Blood Count (test code = 6690-2) 6.24 4.8-10.8 [facility] HospitalRed Blood Ezgjh7369-59-37 20:08:00* Test Item Value Reference Range Interpretation Comments Red Blood Count (test code = 789-8) 3.43 3.6-5.1 L [facility] HospitalHemoglobin2020-03-16 20:08:00* Test Item Value Reference Range Interpretation Comments Hemoglobin (test code = 55245-0) 10.3 12.0-16.0 L [facility] HospitalHematocrit2020-03-16 20:08:00* Test Item Value Reference Range Interpretation Comments Hematocrit (test code = 4544-3) 31.4 34.2-44.1 L [facility] HospitalMean Corpuscular Ayazjo3366-50-37 20:08:00* Test Item Value Reference Range Interpretation Comments Mean Corpuscular Volume (test code = 787-2) 91.5 81-99 [facility] HospitalMean Corpuscular Kwxsdsijug6203-83-34 20:08:00* Test Item Value Reference Range Interpretation Comments Mean Corpuscular Hemoglobin (test code = 785-6) 30.0 28-32 [facility] HospitalMean Corpuscular Hemoglobin Concent 2019-11-23 20:08:00* Test Item Value Reference Range Interpretation Comments Mean Corpuscular Hemoglobin Concent (test code = 786-4) 32.8 31-35 [facility] HospitalRed Cell Distribution Qjepl9710-41-29 20:08:00* Test Item Value Reference Range Interpretation Comments Red Cell Distribution Width (test code = 25911-0) 13.6 11.7 -14.4 [facility] HospitalPlatelet Uqxdh6876-28-79 20:08:00* Test Item Value Reference Range Interpretation Comments Platelet Count (test code = 777-3) 196 140-360 [facility] HospitalNeutrophils (%) (Auto)2019-11-23 20:08:00 * Test Item Value Reference Range Interpretation Comments Neutrophils (%) (Auto) (test code = 48818-6) 81.3 38.7-80.0 H [facility] HospitalLymphocytes (%) (Auto)2019-11-23 20:08:00 * Test Item Value Reference Range Interpretation Comments Lymphocytes (%) (Auto) (test code = 736-9) 13.8 18.0-39.1 L [facility] HospitalMonocytes (%) (Auto)2019-11-23 20:08:00* Test Item Value Reference Range Interpretation Comments Monocytes (%) (Auto) (test code = 5905-5) 4.2 4.4-11.3 L [facility] HospitalEosinophils (%) (Auto)2019-11-23 20:08:00 * Test Item Value Reference Range Interpretation Comments Eosinophils (%) (Auto) (test code = 713-8) 0.2 0.0-6.0 [facility] HospitalBasophils (%) (Auto)2019-11-23 20:08:00* Test Item Value Reference Range Interpretation Comments Basophils (%) (Auto) (test code = 706-2) 0.2 0.0-1.0 [facility] HospitalIM GRANULOCYTES %2019-11-23 20:08:00* Test Item Value Reference Range Interpretation Comments IM GRANULOCYTES % (test code = IM GRANULOCYTES %) 0.3 0.0- 1.0 [facility] HospitalNeutrophils # (Auto)2019-11-23 20:08:00* Test Item Value Reference Range Interpretation Comments Neutrophils # (Auto) (test code = 751-8) 5.1 2.1-6.9 [facility] HospitalLymphocytes # (Auto)2019-11-23 20:08:00* Test Item Value Reference Range Interpretation Comments Lymphocytes # (Auto) (test code = 41321-8) 0.9 1.0-3.2 L [facility] HospitalMonocytes # (Auto)2019-11-23 20:08:00* Test Item Value Reference Range Interpretation Comments Monocytes # (Auto) (test code = 742-7) 0.3 0.2-0.8 [facility] HospitalEosinophils # (Auto)2019-11-23 20:08:00* Test Item Value Reference Range Interpretation Comments Eosinophils # (Auto) (test code = 711-2) 0.0 0.0-0.4 [facility] HospitalBasophils # (Auto)2019-11-23 20:08:00* Test Item Value Reference Range Interpretation Comments Basophils # (Auto) (test code = 704-7) 0.0 0.0-0.1 [facility] HospitalAbsolute Immature Granulocyte (auto 2019-11-23 20:08:00* Test Item Value Reference Range Interpretation Comments Absolute Immature Granulocyte (auto (dana t code = Absolute Immature Granulocyte (auto) 0.02 0-0.1 [facility] HospitalProthrombin time (PT) in platelet poor plasma by coagulation capjx8387-31-73 19:45:00* Test Item Value Reference Range Interpretation Comments Prothrombin Time (test code = 5902-2) 13.6 11.9-14.5 [facility] HospitalINR in Platelet poor plasma by Coagulation nfyqy6943-63-18 19:45:00* Test Item Value Reference Range Interpretation Comments Prothromb Time International Ratio (test code = 6301-6) 0.98 Oral Anticoagulant Therapy INR Values:1. Low Intensity Therapy 1.5 - 2.02 . Moderate Intensity Therapy 2.0 - 3.03. High Intensity Therapy(1) 2.5 - 3. 54. High Intensity Therapy(2) 3.0 - 4.05. Panic Value INR > 5.0 [facility] HospitalActivated partial thromboplastin time (aPTT) in platelet poor plasma by coagulation kibkq7839-40-16 19:45:00* Test Item Value Reference Range Interpretation Comments Activated Partial Thromboplast Time (test code = 37824-1) 27.9 23.8-35.5 [facility] creatine kinase measurement (enzymatic activity/volume)2019-11-23 19:45:00* Test Item Value Reference Range Interpretation Comments Creatine Kinase (test code = 2157-6) 397 29168 [facility] Hospitaler[facility] plasma creatine kinase MB measurement (mass/volume)2019-11-23 19:45:00* Test Item Value Reference Range Interpretation Comments Creatine Kinase MB (test code = 82384-6) 4.20 0-5.0 [facility] HospitalCHEST SINGLE (PORTABLE)2019-11-23 19:00:00 [facility] [address] [place] [address] Patient Name: CHRISTINE OTTO MR #: [id number] : 1990 Age/Sex: 29/F Req #: [id number] Adm Physician: Ordered by: CHI CARRASCO CUSTOMER BUSINESS MANAGER Report #: [id number] Location: ER Room/Bed: Procedure: [id number] DX/CHEST SINGLE (PORTABLE) Exam Date: 11/23/19 Exam [...] 11/23/191900 COPY TO: CHI CARRASCO NP Blood Gczarom2195-93-65 09:05:00* Test Item Value Reference Range Interpretation Comments Blood Culture (test code = 89014073) NO GROWTH AFTER 5 DAYS, FINAL REPORT [facility] HospitalBlood Suhjbgx7235-99-06 09:05:00* Test Item Value Reference Range Interpretation Comments Blood Culture (test code = 49170505) NO GROWTH AFTER 5 DAYS, FINAL REPORT [facility] HospitalBlood Ykxajcm9032-30-19 09:05:00* Test Item Value Reference Range Interpretation Comments Blood Culture (test code = 83133587) NO GROWTH AFTER 48 HOURS [facility] HospitalOvalocytes2019-11-14 12:40:00* Test Item Value Reference Range Interpretation Comments Ovalocytes (test code = 774-0) FEW [facility] HospitalOvalocytes2019-11-14 12:40:00* Test Item Value Reference Range Interpretation Comments Ovalocytes (test code = 774-0) FEW [facility] HospitalOvalocytes2019-11-14 12:40:00* Test Item Value Reference Range Interpretation Comments Ovalocytes (test code = 774-0) FEW [facility] HospitalOvalocytes2019-11-14 12:40:00* Test Item Value Reference Range Interpretation Comments Ovalocytes (test code = 774-0) FEW [facility] HospitalDifferential Total Cells Counted 2019-07-23 12:28:00* Test Item Value Reference Range Interpretation Comments Differential Total Cells Counted (test code = Differen tial Total Cells Counted) 100 [facility] HospitalNeutrophils % (Manual)2019-07-23 12:28:00 * Test Item Value Reference Range Interpretation Comments Neutrophils % (Manual) (test code = 88933-6) 74 40-74 [facility] HospitalLymphocytes % (Manual)2019-07-23 12:28:00 * Test Item Value Reference Range Interpretation Comments Lymphocytes % (Manual) (test code = 737-7) 19 19-48 [facility] HospitalMonocytes % (Manual)2019-07-23 12:28:00* Test Item Value Reference Range Interpretation Comments Monocytes % (Manual) (test code = 744-3) 7 3.4-9.0 [facility] HospitalPlatelet Ffhiceoj2115-14-16 12:28:00* Test Item Value Reference Range Interpretation Comments Platelet Estimate (test code = 99580-0) ADEQUATE [facility] HospitalPlatelet Morphology Rvyvngp5876-08-76 12:28:00* Test Item Value Reference Range Interpretation Comments Platelet Morphology Comment (test code = 43152-4) NORMAL [facility] HospitalPoikilocytosis2019-11-14 12:28:00* Test Item Value Reference Range Interpretation Comments Poikilocytosis (test code = 779-9) SLIGHT [facility] HospitalAnisocytosis2019-11-14 12:28:00* Test Item Value Reference Range Interpretation Comments Anisocytosis (test code = 702-1) SLIGHT [facility] HospitalRed Cell Morphology Ffpbruy3520-00-52 12:28:00* Test Item Value Reference Range Interpretation Comments Red Cell Morphology Comment (test code = 6742-1) NORMAL [facility] HospitalDifferential Total Cells Counted 2019-07-23 12:28:00* Test Item Value Reference Range Interpretation Comments Differential Total Cells Counted (test code = Differbrigid tial Total Cells Counted) 100 [facility] HospitalNeutrophils % (Manual)2019-07-23 12:28:00 * Test Item Value Reference Range Interpretation Comments Neutrophils % (Manual) (test code = 99442-6) 74 40-74 [facility] HospitalLymphocytes % (Manual)2019-07-23 12:28:00 * Test Item Value Reference Range Interpretation Comments Lymphocytes % (Manual) (test code = 737-7) 19 19-48 [facility] HospitalMonocytes % (Manual)2019-07-23 12:28:00* Test Item Value Reference Range Interpretation Comments Monocytes % (Manual) (test code = 744-3) 7 3.4-9.0 [facility] HospitalPlatelet Zwwoiecg8962-48-49 12:28:00* Test Item Value Reference Range Interpretation Comments Platelet Estimate (test code = 82681-5) ADEQUATE [facility] HospitalPlatelet Morphology Hrtkysv9708-40-50 12:28:00* Test Item Value Reference Range Interpretation Comments Platelet Morphology Comment (test code = 77167-0) NORMAL [facility] HospitalPoikilocytosis2019-11-14 12:28:00* Test Item Value Reference Range Interpretation Comments Poikilocytosis (test code = 779-9) SLIGHT [facility] HospitalAnisocytosis2019-11-14 12:28:00* Test Item Value Reference Range Interpretation Comments Anisocytosis (test code = 702-1) SLIGHT [facility] HospitalRed Cell Morphology Qkymvtm1914-40-12 12:28:00* Test Item Value Reference Range Interpretation Comments Red Cell Morphology Comment (test code = 6742-1) NORMAL [facility] HospitalDifferential Total Cells Counted 2019-07-23 12:28:00* Test Item Value Reference Range Interpretation Comments Differential Total Cells Counted (test code = Differbrigid tial Total Cells Counted) 100 [facility] HospitalNeutrophils % (Manual)2019-07-23 12:28:00 * Test Item Value Reference Range Interpretation Comments Neutrophils % (Manual) (test code = 71966-7) 74 40-74 [facility] HospitalLymphocytes % (Manual)2019-07-23 12:28:00 * Test Item Value Reference Range Interpretation Comments Lymphocytes % (Manual) (test code = 737-7) 19 19-48 [facility] HospitalMonocytes % (Manual)2019-07-23 12:28:00* Test Item Value Reference Range Interpretation Comments Monocytes % (Manual) (test code = 744-3) 7 3.4-9.0 [facility] HospitalPlatelet Ggifwtfo2828-60-71 12:28:00* Test Item Value Reference Range Interpretation Comments Platelet Estimate (test code = 09988-4) ADEQUATE [facility] HospitalPlatelet Morphology Vlcvvzf7943-04-75 12:28:00* Test Item Value Reference Range Interpretation Comments Platelet Morphology Comment (test code = 94777-6) NORMAL [facility] HospitalPoikilocytosis2019-11-14 12:28:00* Test Item Value Reference Range Interpretation Comments Poikilocytosis (test code = 779-9) SLIGHT [facility] HospitalAnisocytosis2019-11-14 12:28:00* Test Item Value Reference Range Interpretation Comments Anisocytosis (test code = 702-1) SLIGHT [facility] HospitalRed Cell Morphology Xwclsdo7158-42-67 12:28:00* Test Item Value Reference Range Interpretation Comments Red Cell Morphology Comment (test code = 6742-1) NORMAL [facility] HospitalPoikilocytosis2019-11-14 12:28:00* Test Item Value Reference Range Interpretation Comments Poikilocytosis (test code = 779-9) SLIGHT [facility] HospitalUrine AER8069-99-66 11:33:00* Test Item Value Reference Range Interpretation Comments Urine WBC (test code = 5821-4) 6-10 0-5 H [facility] HospitalUrine RGS9389-51-55 11:33:00* Test Item Value Reference Range Interpretation Comments Urine RBC (test code = 89102-8) 0-5 0-5 [facility] HospitalUrine Nyguoyzw5666-37-61 11:33:00* Test Item Value Reference Range Interpretation Comments Urine Bacteria (test code = 67022-5) MANY NONE H [facility] HospitalUrine Epithelial Dgulv6542-24-72 11:33:00 * Test Item Value Reference Range Interpretation Comments Urine Epithelial Cells (test code = 90666-8) MODERATE NONE [facility] HospitalUrine Xxwpz5352-56-11 11:29:00* Test Item Value Reference Range Interpretation Comments Urine Color (test code = 5778-6) YELLOW YELLOW [facility] HospitalUrine Mfcetui1159-13-93 11:29:00* Test Item Value Reference Range Interpretation Comments Urine Clarity (test code = 66122-2) SL CLOUDY CLEAR [facility] HospitalUrine Specific Gljekwv0492-33-94 11:29:00 * Test Item Value Reference Range Interpretation Comments Urine Specific [place] (test code = 5811-5) >=1.030 1.010-1.02 5 [facility] HospitalUrine mK0154-98-51 11:29:00* Test Item Value Reference Range Interpretation Comments Urine pH (test code = 24051-1) 6 5-7 [facility] HospitalUrine Leukocyte Qvynuoak3558-54-17 11:29:00* Test Item Value Reference Range Interpretation Comments Urine Leukocyte Esterase (test code = 52738-3) NEGATIVE NEGATIV E [facility] HospitalUrine Ndyvtty5065-25-90 11:29:00* Test Item Value Reference Range Interpretation Comments Urine Nitrite (test code = 88910-1) NEGATIVE NEGATIVE [facility] Qwxmykm7589-23-63 11:29:00* Test Item Value Reference Range Interpretation Comments Urine Protein (test code = 13462-0) NEGATIVE NEGATIVE [facility] Glucose (UA)2019-07-23 11:29:00* Test Item Value Reference Range Interpretation Comments Urine Glucose (UA) (test code = 36573-8) NEGATIVE NEGATIVE [facility] HospitalUrine Hgihhpa1689-16-18 11:29:00* Test Item Value Reference Range Interpretation Comments Urine Ketones (test code = 14664-6) NEGATIVE NEGATIVE [facility] Zwywhgjfmowy8112-58-11 11:29:00* Test Item Value Reference Range Interpretation Comments Urine Urobilinogen (test code = 26405-2) 1 0.2-1 [facility] HospitalUrine Vllfqntxj3393-52-57 11:29:00* Test Item Value Reference Range Interpretation Comments Urine Bilirubin (test code = 1977-8) NEGATIVE NEGATIVE [facility] Zkgtz1226-12-06 11:29:00* Test Item Value Reference Range Interpretation Comments Urine Blood (test code = 39786-7) NEGATIVE NEGATIVE [facility] HospitalHemoglobin A1c Ijpefgj0801-11-36 11:28:00 * Test Item Value Reference Range Interpretation Comments Hemoglobin A1c Percent (test code = Hemoglobin A1c Percent) 5.1 4.0-7.0 [facility] HospitalHemoglobin A1c Lnxpkwe1569-78-37 11:28:00 * Test Item Value Reference Range Interpretation Comments Hemoglobin A1c Percent (test code = Hemoglobin A1c Percent) 5.1 4.0-7.0 [facility] HospitalHemoglobin A1c Pqrplpq8515-91-66 11:28:00 * Test Item Value Reference Range Interpretation Comments Hemoglobin A1c Percent (test code = Hemoglobin A1c Percent) 5.1 4.0-7.0 [facility] HospitalTriglycerides Cwees8336-89-85 08:29:00* Test Item Value Reference Range Interpretation Comments Triglycerides Level (test code = 2571-8) 118 0-149 [facility] HospitalCholesterol Maqle1372-82-09 08:29:00* Test Item Value Reference Range Interpretation Comments Cholesterol Level (test code = 2093-3) 102 0-199 Less than 200 mg/dL Low Eyjy960 - 239 mg/dL Borderline Bmnt005 m g/dl and greater High Risk [facility] HospitalLDL Sipnvzhvfxk8818-12-02 08:29:00* Test Item Value Reference Range Interpretation Comments LDL Cholesterol (test code = 2089-1) 56 60-130 L [facility] HospitalHDL Ecrnutxqsdv3916-44-52 08:29:00* Test Item Value Reference Range Interpretation Comments HDL Cholesterol (test code = 2085-9) 22 40-60 L [facility] HospitalCholesterol/HDL Ywscm0791-39-86 08:29:00 * Test Item Value Reference Range Interpretation Comments Cholesterol/HDL Ratio (test code = 9830-1) 4.6 3.0-3.6 H [facility] HospitalTriglycerides Bsqmb7333-78-42 08:29:00* Test Item Value Reference Range Interpretation Comments Triglycerides Level (test code = 2571-8) 118 0-149 [facility] HospitalCholesterol Pwebm5748-65-11 08:29:00* Test Item Value Reference Range Interpretation Comments Cholesterol Level (test code = 2093-3) 102 0-199 Less than 200 mg/dL Low Itiw795 - 239 mg/dL Borderline Ottn008 m g/dl and greater High Risk [facility] HospitalLDL Hsexkvweoue5949-83-06 08:29:00* Test Item Value Reference Range Interpretation Comments LDL Cholesterol (test code = 2089-1) 56 60-130 L [facility] Kqofxoadnvz0956-75-69 08:29:00* Test Item Value Reference Range Interpretation Comments HDL Cholesterol (test code = 2085-9) 22 40-60 L [facility] HospitalCholesterol/HDL Gplav5120-78-59 08:29:00 * Test Item Value Reference Range Interpretation Comments Cholesterol/HDL Ratio (test code = 9830-1) 4.6 3.0-3.6 H [facility] HospitalTriglycerides Lqmgx1896-38-12 08:29:00* Test Item Value Reference Range Interpretation Comments Triglycerides Level (test code = 2571-8) 118 0-149 [facility] HospitalCholesterol Samvq6309-33-42 08:29:00* Test Item Value Reference Range Interpretation Comments Cholesterol Level (test code = 2093-3) 102 0-199 Less than 200 mg/dL Low Mayk832 - 239 mg/dL Borderline Htki546 m g/dl and greater High Risk [facility] HospitalLDL Ngwlmfqogwm3957-57-50 08:29:00* Test Item Value Reference Range Interpretation Comments LDL Cholesterol (test code = 2089-1) 56 60-130 L [facility] Lvqogaepqaa2338-28-49 08:29:00* Test Item Value Reference Range Interpretation Comments HDL Cholesterol (test code = 2085-9) 22 40-60 L [facility] HospitalCholesterol/HDL Iwcwm3525-17-72 08:29:00 * Test Item Value Reference Range Interpretation Comments Cholesterol/HDL Ratio (test code = 9830-1) 4.6 3.0-3.6 [facility] Nclgu2449-01-17 06:07:00* Test Item Value Reference Range Interpretation Comments Sodium Level (test code = 2951-2) 135 136-145 L [facility] HospitalPotassium Qevgk7311-07-77 06:07:00* Test Item Value Reference Range Interpretation Comments Potassium Level (test code = 2823-3) 3.6 3.5-5.1 [facility] HospitalChloride Ojajq4197-71-79 06:07:00* Test Item Value Reference Range Interpretation Comments Chloride Level (test code = 2075-0) 104 98-107 [facility] HospitalCarbon Dioxide Gomkn1235-92-31 06:07:00* Test Item Value Reference Range Interpretation Comments Carbon Dioxide Level (test code = 2028-9) 25 22-29 [facility] HospitalAnion Lwp0140-94-52 06:07:00* Test Item Value Reference Range Interpretation Comments Anion Gap (test code = 41851-7) 9.6 8-16 [facility] HospitalBlood Urea Pbhrcrdp7337-53-79 06:07:00* Test Item Value Reference Range Interpretation Comments Blood Urea Nitrogen (test code = 3094-0) 11 7-26 [facility] HospitalCreatinine2019-11-14 06:07:00* Test Item Value Reference Range Interpretation Comments Creatinine (test code = 2160-0) 1.01 0.57-1.11 [facility] HospitalBUN/Creatinine Hbxqd0496-90-81 06:07:00* Test Item Value Reference Range Interpretation Comments BUN/Creatinine Ratio (test code = 3097-3) 11 6-25 [facility] HospitalEstimat Glomerular Filtration Rate 2019-07-23 06:07:00* Test Item Value Reference Range Interpretation Comments Estimat Glomerular Filtration Rate (test code = 181909933) > 60 >60 Ranges were taken from the National Kidney Disease Education Program and the [facility] literature.Reference ranges:60 or greater: Spdwkw13-36 ( for 3 consecutive months): Chronic kidney disease 15 or less: Kidney failureMemorial Hermann Cypress HospitalGlucose Cnowz6148-66-39 06:07:00* Test Item Value Reference Range Interpretation Comments Glucose Level (test code = MAQ7995) 82 74-118 [facility] HospitalCalcium Ivvkq1461-02-69 06:07:00* Test Item Value Reference Range Interpretation Comments Calcium Level (test code = 57728-3) 8.8 8.4-10.2 [facility] Xyjeewxxd7663-34-35 06:07:00* Test Item Value Reference Range Interpretation Comments Total Bilirubin (test code = 1975-2) 0.7 0.2-1.2 [facility] HospitalAspartate Amino Transf (AST/SGOT) 2019-07-23 06:07:00* Test Item Value Reference Range Interpretation Comments Aspartate Amino Transf (AST/SGOT) (test code = Aspartate Amino Transf (AST/SGOT)) 20 5-34 [facility] HospitalAlanine Aminotransferase (ALT/SGPT) 2019-07-23 06:07:00* Test Item Value Reference Range Interpretation Comments Alanine Aminotransferase (ALT/SGPT) (test code = 1742-6) 11 0-55 [facility] Hctvstn9668-29-67 06:07:00* Test Item Value Reference Range Interpretation Comments Total Protein (test code = 2885-2) 8.1 6.5-8.1 [facility] HospitalAlbumin2019-11-14 06:07:00* Test Item Value Reference Range Interpretation Comments Albumin (test code = 1751-7) 3.0 3.5-5.0 L [facility] HospitalGlobulin2019-11-14 06:07:00* Test Item Value Reference Range Interpretation Comments Globulin (test code = 85706-7) 5.1 2.3-3.5 H [facility] HospitalAlbumin/Globulin Nskrz3916-93-26 06:07:00 * Test Item Value Reference Range Interpretation Comments Albumin/Globulin Ratio (test code = 1759-0) 0.6 0.8-2.0 L [facility] HospitalAlkaline Bgujngqywba7036-58-12 06:07:00* Test Item Value Reference Range Interpretation Comments Alkaline Phosphatase (test code = 6768-6) 16 40-150 L [facility] Jqwtzlqom0410-54-57 06:07:00* Test Item Value Reference Range Interpretation Comments Total Bilirubin (test code = 1975-2) 0.7 0.2-1.2 [facility] HospitalAspartate Amino Transf (AST/SGOT) 2019-07-23 06:07:00* Test Item Value Reference Range Interpretation Comments Aspartate Amino Transf (AST/SGOT) (test code = Aspartate Amino Transf (AST/SGOT)) 20 534 [facility] HospitalAlanine Aminotransferase (ALT/SGPT) 2019-07-23 06:07:00* Test Item Value Reference Range Interpretation Comments Alanine Aminotransferase (ALT/SGPT) (test code = 1742-6) 11 0-55 [facility] HospitalTotal Juhnxbm2363-26-37 06:07:00* Test Item Value Reference Range Interpretation Comments Total Protein (test code = 2885-2) 8.1 6.5-8.1 [facility] HospitalAlbumin2019-11-14 06:07:00* Test Item Value Reference Range Interpretation Comments Albumin (test code = 1751-7) 3.0 3.5-5.0 L [facility] HospitalGlobulin2019-11-14 06:07:00* Test Item Value Reference Range Interpretation Comments Globulin (test code = 67874-0) 5.1 2.3-3.5 H [facility] HospitalAlbumin/Globulin Vrcoz4126-97-54 06:07:00 * Test Item Value Reference Range Interpretation Comments Albumin/Globulin Ratio (test code = 1759-0) 0.6 0.8-2.0 L [facility] HospitalAlkaline Jfmpfzbobto3165-48-76 06:07:00* Test Item Value Reference Range Interpretation Comments Alkaline Phosphatase (test code = 6768-6) 16 40-150 L [facility] HospitalTotal Nonuweqrp0045-31-02 06:07:00* Test Item Value Reference Range Interpretation Comments Total Bilirubin (test code = 1975-2) 0.7 0.2-1.2 [facility] HospitalAspartate Amino Transf (AST/SGOT) 2019-07-23 06:07:00* Test Item Value Reference Range Interpretation Comments Aspartate Amino Transf (AST/SGOT) (test code = Aspartate Amino Transf (AST/SGOT)) 20 34 [facility] HospitalAlanine Aminotransferase (ALT/SGPT) 2019-07-23 06:07:00* Test Item Value Reference Range Interpretation Comments Alanine Aminotransferase (ALT/SGPT) (test code = 1742-6) 11 0-55 [facility] HospitalTotal Zxabdhq2625-59-88 06:07:00* Test Item Value Reference Range Interpretation Comments Total Protein (test code = 2885-2) 8.1 6.5-8.1 [facility] HospitalAlbumin2019-11-14 06:07:00* Test Item Value Reference Range Interpretation Comments Albumin (test code = 1751-7) 3.0 3.5-5.0 L [facility] HospitalGlobulin2019-11-14 06:07:00* Test Item Value Reference Range Interpretation Comments Globulin (test code = 54176-9) 5.1 2.3-3.5 H [facility] HospitalAlbumin/Globulin Ooube9054-64-24 06:07:00 * Test Item Value Reference Range Interpretation Comments Albumin/Globulin Ratio (test code = 1759-0) 0.6 0.8-2.0 L [facility] HospitalAlkaline Ptiqapmeqgh5351-68-52 06:07:00* Test Item Value Reference Range Interpretation Comments Alkaline Phosphatase (test code = 6768-6) 16 40-150 L [facility] HospitalWhite Blood Lxhnp4445-71-52 05:39:00* Test Item Value Reference Range Interpretation Comments White Blood Count (test code = 6690-2) 3.41 4.8-10.8 L [facility] HospitalRed Blood Bmifj2301-43-92 05:39:00* Test Item Value Reference Range Interpretation Comments Red Blood Count (test code = 789-8) 3.30 3.6-5.1 L [facility] HospitalHemoglobin2019-11-14 05:39:00* Test Item Value Reference Range Interpretation Comments Hemoglobin (test code = 93314-5) 10.0 12.0-16.0 L [facility] HospitalHematocrit2019-11-14 05:39:00* Test Item Value Reference Range Interpretation Comments Hematocrit (test code = 4544-3) 30.6 34.2-44.1 L [facility] HospitalMean Corpuscular Ssvrrh3355-13-07 05:39:00* Test Item Value Reference Range Interpretation Comments Mean Corpuscular Volume (test code = 787-2) 92.7 81-99 [facility] HospitalMean Corpuscular Neqtugtupz9781-04-51 05:39:00* Test Item Value Reference Range Interpretation Comments Mean Corpuscular Hemoglobin (test code = 785-6) 30.3 28-32 [facility] HospitalMean Corpuscular Hemoglobin Concent 2019-07-23 05:39:00* Test Item Value Reference Range Interpretation Comments Mean Corpuscular Hemoglobin Concent (test code = 786-4) 32.7 31-35 [facility] HospitalRed Cell Distribution Immwp4985-22-76 05:39:00* Test Item Value Reference Range Interpretation Comments Red Cell Distribution Width (test code = 87951-5) 13.4 11.7 -14.4 [facility] HospitalPlatelet Atnjp4628-16-06 05:39:00* Test Item Value Reference Range Interpretation Comments Platelet Count (test code = 777-3) 153 140-360 [facility] HospitalNeutrophils (%) (Auto)2019-07-23 05:39:00 * Test Item Value Reference Range Interpretation Comments Neutrophils (%) (Auto) (test code = 66393-9) 50.4 38.7-80.0 [facility] HospitalLymphocytes (%) (Auto)2019-07-23 05:39:00 * Test Item Value Reference Range Interpretation Comments Lymphocytes (%) (Auto) (test code = 736-9) 39.0 18.0-39.1 [facility] HospitalMonocytes (%) (Auto)2019-07-23 05:39:00* Test Item Value Reference Range Interpretation Comments Monocytes (%) (Auto) (test code = 5905-5) 10.3 4.4-11.3 [facility] HospitalEosinophils (%) (Auto)2019-07-23 05:39:00 * Test Item Value Reference Range Interpretation Comments Eosinophils (%) (Auto) (test code = 713-8) 0.0 0.0-6.0 [facility] HospitalBasophils (%) (Auto)2019-07-23 05:39:00* Test Item Value Reference Range Interpretation Comments Basophils (%) (Auto) (test code = 706-2) 0.3 0.0-1.0 [facility] HospitalIM GRANULOCYTES %2019-07-23 05:39:00* Test Item Value Reference Range Interpretation Comments IM GRANULOCYTES % (test code = IM GRANULOCYTES %) 0.0 0.0- 1.0 [facility] HospitalNeutrophils # (Auto)2019-07-23 05:39:00* Test Item Value Reference Range Interpretation Comments Neutrophils # (Auto) (test code = 751-8) 1.7 2.1-6.9 L [facility] HospitalLymphocytes # (Auto)2019-07-23 05:39:00* Test Item Value Reference Range Interpretation Comments Lymphocytes # (Auto) (test code = 89340-8) 1.3 1.0-3.2 [facility] HospitalMonocytes # (Auto)2019-07-23 05:39:00* Test Item Value Reference Range Interpretation Comments Monocytes # (Auto) (test code = 742-7) 0.4 0.2-0.8 [facility] HospitalEosinophils # (Auto)2019-07-23 05:39:00* Test Item Value Reference Range Interpretation Comments Eosinophils # (Auto) (test code = 711-2) 0.0 0.0-0.4 [facility] HospitalBasophils # (Auto)2019-07-23 05:39:00* Test Item Value Reference Range Interpretation Comments Basophils # (Auto) (test code = 704-7) 0.0 0.0-0.1 [facility] HospitalAbsolute Immature Granulocyte (auto 2019-07-23 05:39:00* Test Item Value Reference Range Interpretation Comments Absolute Immature Granulocyte (auto (dana t code = Absolute Immature Granulocyte (auto) 0 0-0.1 [facility] HospitalBlood poikilocytosis detection by light hcdiypgtdb8266-17-52 04:25:00* Test Item Value Reference Range Interpretation Comments Poikilocytosis (test code = 779-9) SLIGHT [facility] HospitalBlood ovalocytes detection by light nrmlatkpvm3026-87-49 04:25:00* Test Item Value Reference Range Interpretation Comments Ovalocytes (test code = 774-0) FEW [facility] HospitalProthrombin Lela1589-26-29 11:30:00* Test Item Value Reference Range Interpretation Comments Prothrombin Time (test code = 5902-2) 13.9 11.9-14.5 [facility] HospitalProthromb Time International Ratio 2019-07-22 11:30:00* Test Item Value Reference Range Interpretation Comments Prothromb Time International Ratio (test code = 6301-6) 1.02 Oral Anticoagulant Therapy INR Values:1. Low Intensity Therapy 1.5 - 2.02 . Moderate Intensity Therapy 2.0 - 3.03. High Intensity Therapy(1) 2.5 - 3. 54. High Intensity Therapy(2) 3.0 - 4.05. Panic Value INR > 5.0 [facility] HospitalActivated Partial Thromboplast Time 2019-07-22 11:30:00* Test Item Value Reference Range Interpretation Comments Activated Partial Thromboplast Time (test code = 09143-6) 28.9 23.8-35.5 [facility] HospitalCT ABDOMEN/PELVIS [id number] 11:14:00 [facility] [address] [place] [address] Patient Name: CHRISTINE OTTO MR #: [id number] : [birth year] Age/Sex: 28/F Req #: [id number] Adm Physician: Ordered by: JOSE MANUEL COBURN MD Report #: [id number] Location: ER Room/Bed: Procedure: [id number] CT/ CT ABDOMEN/PELVIS W Exam Date: 07/22/19 [...] COPY TO: JOSE MANUEL COBURN MD US IJBHBDWQDAYF7442-90-18 10:26:00 [place] [address] Patient Name: CHRISTINE OTTO MR #: [id number] : 1990 Age/Sex: 28/F Req #: [id number] Adm Physician: Ordered by: JOSE MANUEL COBURN MD Report #: [id number] Location: ER Room/Bed: Procedure: [id number] US/ US TRANSVAGINAL Exam Date: 07/22/19 Exam [...] JOSE MANUEL COBURN MD US PELVIC DOPPLER CSF1694-66-21 10:26:00 [place] [address] Patient Name: CHRISTINE OTTO MR #: [id number] : 1990 Age/Sex: 28/F Req #: [id number] Adm Physician: Ordered by: JOSE MANUEL COBURN MD Report #: [id number] Location: ER Room/Bed: Procedure: [id number] US/ US PELVIC DOPPLER LTD Exam Date: [...] MANUEL COBURN MD US PELVIS COMPLETE NON [id number] 10:26:00 [place] [address] Patient Name: CHRISTINE OTTO MR #: [id number] : 1990 Age/Sex: 28/F Req #: [id number] Adm Physician: Ordered by: JOSE MANUEL COBURN MD Report #: [id number] Location: ER Room/Bed: Procedure: [id number] US/ US PELVIS COMPLETE NON OB Exam [...] Comments Basophils % (Manual) (test code = 51066-1) 1 0-1.5 [facility]2019-11-13 10:04:00* Test Item Value Reference Range Interpretation Comments Stomatocytes (test code = 51486-4) SLIGHT [facility] HospitalBasophils % (Manual)2019-07-22 10:04:00* Test Item Value Reference Range Interpretation Comments Basophils % (Manual) (test code = 20862-7) 1 0-1.5 [facility] 10:04[facility]00* Test Item Value Reference Range Interpretation Comments Stomatocytes (test code = 42050-6) SLIGHT [facility] HospitalBasophils % (Manual)2019-07-22 10:04:00* Test Item Value Reference Range Interpretation Comments Basophils % (Manual) (test code = 63561-1) 1 0-1.5 [facility] 10:04:00* Test Item Value Reference Range Interpretation Comments Stomatocytes (test code = 99872-4) SLIGHT [facility] HospitalBasophils % (Manual)2019-07-22 10:04:00* Test Item Value Reference Range Interpretation Comments Basophils % (Manual) (test code = 04026-9) 1 0-1.5 [facility] 10:04:00* Test Item Value Reference Range Interpretation Comments Stomatocytes (test code = 01415-0) SLIGHT [facility] HospitalUrine Lrod6350-86-44 08:41:00* Test Item Value Reference Range Interpretation Comments Urine Test (test code = 2106-3) NEGATIVE NEGATIVE [facility] HospitalUrine Ysjj3311-22-49 08:41:00* Test Item Value Reference Range Interpretation Comments Urine Test (test code = 2106-3) NEGATIVE NEGATIVE [facility] HospitalUrine Vcdi7152-72-85 08:41:00* Test Item Value Reference Range Interpretation Comments Urine Test (test code = 2106-3) NEGATIVE NEGATIVE [facility] HospitalUrine Uxjc0831-26-35 08:41:00* Test Item Value Reference Range Interpretation Comments Urine Test (test code = 2106-3) NEGATIVE NEGATIVE [facility] HospitalManual basophil girzbrsala4263-73-64 08:00:00* Test Item Value Reference Range Interpretation Comments Basophils % (Manual) (test code = 47179-6) 1 0-1.5 [facility] HospitalBlood stomatocytes detection by light alaxgvvyzv2347-10-54 08:00:00* Test Item Value Reference Range Interpretation Comments Stomatocytes (test code = 35088-8) SLIGHT [facility] HospitalUrine human chorionic gonadotropin (hCG) iuiipzlbc7597-03-47 07:30:00* Test Item Value Reference Range Interpretation Comments Urine Test (test code = 2106-3) NEGATIVE NEGATIVE [facility] HospitalProthrombin Suov1855-11-56 22:50:00* Test Item Value Reference Range Interpretation Comments Prothrombin Time (test code = 5902-2) 13.1 11.9-14.5 [facility] HospitalProthromb Time International Ratio 2019-02-09 22:50:00* Test Item Value Reference Range Interpretation Comments Prothromb Time International Ratio (test code = 6301-6) 0.94 Oral Anticoagulant Therapy INR Values:1. Low Intensity Therapy 1.5 - 2.02 . Moderate Intensity Therapy 2.0 - 3.03. High Intensity Therapy(1) 2.5 - 3. 54. High Intensity Therapy(2) 3.0 - 4.05. Panic Value INR > 5.0 [facility] HospitalActivated Partial Thromboplast Time 2019-02-09 22:50:00* Test Item Value Reference Range Interpretation Comments Activated Partial Thromboplast Time (test code = 33412-8) 26.8 23.8-35.5 [facility] HospitalB-Type Natriuretic Eeunsaq3274-75-78 22:49:00* Test Item Value Reference Range Interpretation Comments B-Type Natriuretic Peptide (test code = 90225-4) 18.6 0-100 [facility] HospitalCreatine Kinase MW0055-76-90 22:49:00* Test Item Value Reference Range Interpretation Comments Creatine Kinase MB (test code = 05828-6) 1.20 0-5.0 [facility] HospitalTropon O5222-87-26 22:49:00* Test Item Value Reference Range Interpretation Comments Troponin I (test code = EUS4283) 0.008 0-0.300 [facility] HospitalB-Type Natriuretic Chwpezt7890-87-49 22:49:00* Test Item Value Reference Range Interpretation Comments B-Type Natriuretic Peptide (test code = 19883-9) 18.6 0-100 [facility] HospitalCreatine Kinase LG3674-41-79 22:49:00* Test Item Value Reference Range Interpretation Comments Creatine Kinase MB (test code = 97811-4) 1.20 0-5.0 [place] 67449019-06-03 22:49:00* Test Item Value Reference Range Interpretation Comments Troponin I (test code = ONU4017) 0.008 0-0.300 [facility] HospitalB-Type Natriuretic Fzbqgob3451-53-92 22:49:00* Test Item Value Reference Range Interpretation Comments B-Type Natriuretic Peptide (test code = 60748-0) 18.6 0-100 [facility] HospitalB-Type Natriuretic Cjjdxgl9435-72-98 22:49:00* Test Item Value Reference Range Interpretation Comments B-Type Natriuretic Peptide (test code = 51075-5) 18.6 0-100 [facility] Aiovv4459-59-19 22:42:00* Test Item Value Reference Range Interpretation Comments Sodium Level (test code = 2951-2) 134 136-145 L [facility] HospitalPotassium Wggpt8675-76-34 22:42:00* Test Item Value Reference Range Interpretation Comments Potassium Level (test code = 2823-3) 3.5 3.5-5.1 [facility] HospitalChloride Xovkg6720-19-01 22:42:00* Test Item Value Reference Range Interpretation Comments Chloride Level (test code = 2075-0) 103 98-107 [facility] HospitalCarbon Dioxide Arbnx5008-25-13 22:42:00* Test Item Value Reference Range Interpretation Comments Carbon Dioxide Level (test code = 2028-9) 26 22-29 [facility] HospitalAnion Wvu3616-60-81 22:42:00* Test Item Value Reference Range Interpretation Comments Anion Gap (test code = 55281-6) 8.5 8-16 [facility] HospitalBlood Urea Dzboehst0079-92-75 22:42:00* Test Item Value Reference Range Interpretation Comments Blood Urea Nitrogen (test code = 3094-0) 15 7-26 [facility] HospitalCreatinine2019-06-03 22:42:00* Test Item Value Reference Range Interpretation Comments Creatinine (test code = 2160-0) 0.97 0.57-1.11 [facility] HospitalBUN/Creatinine Kdant1550-32-69 22:42:00* Test Item Value Reference Range Interpretation Comments BUN/Creatinine Ratio (test code = 3097-3) 15 6-25 [facility] HospitalEstimat Glomerular Filtration Rate 2019-02-09 22:42:00* Test Item Value Reference Range Interpretation Comments Estimat Glomerular Filtration Rate (test code = 642296827) > 60 >60 Ranges were taken from the National Kidney Disease Education Program and the [facility] literature.Reference ranges:60 or greater: Ouczwk64-06 ( for 3 consecutive months): Chronic kidney disease 15 or less: Kidney failureMemorial Hermann Cypress HospitalGlucose Wcnql9455-96-09 22:42:00* Test Item Value Reference Range Interpretation Comments Glucose Level (test code = KEQ6262) 87 74-118 [facility] HospitalCalcium Lzprj0576-32-13 22:42:00* Test Item Value Reference Range Interpretation Comments Calcium Level (test code = 00722-5) 8.8 8.4-10.2 [facility] HospitalTotal Losgsbxbl7975-62-09 22:42:00* Test Item Value Reference Range Interpretation Comments Total Bilirubin (test code = 1975-2) 0.4 0.2-1.2 [facility] HospitalAspartate Amino Transf (AST/SGOT) 2019-02-09 22:42:00* Test Item Value Reference Range Interpretation Comments Aspartate Amino Transf (AST/SGOT) (test code = Aspartate Amino Transf (AST/SGOT)) 22 5-34 [facility] HospitalAlanine Aminotransferase (ALT/SGPT) 2019-02-09 22:42:00* Test Item Value Reference Range Interpretation Comments Alanine Aminotransferase (ALT/SGPT) (test code = 1742-6) 15 0-55 [facility] HospitalTotal Aqusobf3311-78-11 22:42:00* Test Item Value Reference Range Interpretation Comments Total Protein (test code = 2885-2) 9.8 6.5-8.1 H [facility] HospitalAlbumin2019-06-03 22:42:00* Test Item Value Reference Range Interpretation Comments Albumin (test code = 1751-7) 3.5 3.5-5.0 [facility] HospitalGlobulin2019-06-03 22:42:00* Test Item Value Reference Range Interpretation Comments Globulin (test code = 50672-9) 6.3 2.3-3.5 H [facility] HospitalAlbumin/Globulin Dkwat3476-88-12 22:42:00 * Test Item Value Reference Range Interpretation Comments Albumin/Globulin Ratio (test code = 1759-0) 0.6 0.8-2.0 L [facility] HospitalAlkaline Upnydeoctta6589-18-67 22:42:00* Test Item Value Reference Range Interpretation Comments Alkaline Phosphatase (test code = 6768-6) 22 40-150 L [facility] HospitalCreatine Yiqotj6257-49-76 22:42:00* Test Item Value Reference Range Interpretation Comments Creatine Kinase (test code = 2157-6) 274 29-168 H [facility] HospitalCreatine Julcoh6885-55-72 22:42:00* Test Item Value Reference Range Interpretation Comments Creatine Kinase (test code = 2157-6) 274 29-168 H [facility] HospitalWhite Blood Eykkd1238-10-93 22:20:00* Test Item Value Reference Range Interpretation Comments White Blood Count (test code = 6690-2) 4.45 4.8-10.8 L [facility] HospitalRed Blood Eeand4866-24-43 22:20:00* Test Item Value Reference Range Interpretation Comments Red Blood Count (test code = 789-8) 3.25 3.6-5.1 L [facility] HospitalHemoglobin2019-06-03 22:20:00* Test Item Value Reference Range Interpretation Comments Hemoglobin (test code = 14481-3) 9.8 12.0-16.0 L [facility] HospitalHematocrit2019-06-03 22:20:00* Test Item Value Reference Range Interpretation Comments Hematocrit (test code = 4544-3) 31.1 34.2-44.1 L [facility] HospitalMean Corpuscular Zsbhdx6377-51-02 22:20:00* Test Item Value Reference Range Interpretation Comments Mean Corpuscular Volume (test code = 787-2) 95.7 81-99 [facility] HospitalMean Corpuscular Cgxkrklpuu8737-16-91 22:20:00* Test Item Value Reference Range Interpretation Comments Mean Corpuscular Hemoglobin (test code = 785-6) 30.2 28-32 [facility] HospitalMean Corpuscular Hemoglobin Concent 2019-02-09 22:20:00* Test Item Value Reference Range Interpretation Comments Mean Corpuscular Hemoglobin Concent (test code = 786-4) 31.5 31-35 [facility] HospitalRed Cell Distribution Bzpjq2933-42-17 22:20:00* Test Item Value Reference Range Interpretation Comments Red Cell Distribution Width (test code = 64225-2) 13.3 11.7 -14.4 [facility] HospitalPlatelet Dsjie7133-62-05 22:20:00* Test Item Value Reference Range Interpretation Comments Platelet Count (test code = 777-3) 230 140-360 [facility] HospitalNeutrophils (%) (Auto)2019-02-09 22:20:00 * Test Item Value Reference Range Interpretation Comments Neutrophils (%) (Auto) (test code = 92041-6) 58.5 38.7-80.0 [facility] HospitalLymphocytes (%) (Auto)2019-02-09 22:20:00 * Test Item Value Reference Range Interpretation Comments Lymphocytes (%) (Auto) (test code = 736-9) 34.8 18.0-39.1 [facility] HospitalMonocytes (%) (Auto)2019-02-09 22:20:00* Test Item Value Reference Range Interpretation Comments Monocytes (%) (Auto) (test code = 5905-5) 6.3 4.4-11.3 [facility] HospitalEosinophils (%) (Auto)2019-02-09 22:20:00 * Test Item Value Reference Range Interpretation Comments Eosinophils (%) (Auto) (test code = 713-8) 0.0 0.0-6.0 [facility] HospitalBasophils (%) (Auto)2019-02-09 22:20:00* Test Item Value Reference Range Interpretation Comments Basophils (%) (Auto) (test code = 706-2) 0.2 0.0-1.0 [facility] HospitalIM GRANULOCYTES %2019-02-09 22:20:00* Test Item Value Reference Range Interpretation Comments IM GRANULOCYTES % (test code = IM GRANULOCYTES %) 0.2 0.0- 1.0 [facility] HospitalNeutrophils # (Auto)2019-02-09 22:20:00* Test Item Value Reference Range Interpretation Comments Neutrophils # (Auto) (test code = 751-8) 2.6 2.1-6.9 [facility] HospitalLymphocytes # (Auto)2019-02-09 22:20:00* Test Item Value Reference Range Interpretation Comments Lymphocytes # (Auto) (test code = 72897-2) 1.6 1.0-3.2 [facility] HospitalMonocytes # (Auto)2019-02-09 22:20:00* Test Item Value Reference Range Interpretation Comments Monocytes # (Auto) (test code = 742-7) 0.3 0.2-0.8 [facility] HospitalEosinophils # (Auto)2019-02-09 22:20:00* Test Item Value Reference Range Interpretation Comments Eosinophils # (Auto) (test code = 711-2) 0.0 0.0-0.4 [facility] HospitalBasophils # (Auto)2019-02-09 22:20:00* Test Item Value Reference Range Interpretation Comments Basophils # (Auto) (test code = 704-7) 0.0 0.0-0.1 [facility] HospitalAbsolute Immature Granulocyte (auto 2019-02-09 22:20:00* Test Item Value Reference Range Interpretation Comments Absolute Immature Granulocyte (auto (dana t code = Absolute Immature Granulocyte (auto) 0.01 0-0.1 [facility] HospitalUrine FDG8160-23-50 20:58:00* Test Item Value Reference Range Interpretation Comments Urine WBC (test code = 5821-4) NONE 0-5 [facility] HospitalUrine LNE6023-53-10 20:58:00* Test Item Value Reference Range Interpretation Comments Urine RBC (test code = 73774-0) 21-50 0-5 H [facility] HospitalUrine Fknzxbsm0177-09-28 20:58:00* Test Item Value Reference Range Interpretation Comments Urine Bacteria (test code = 87463-0) MANY NONE H [facility] HospitalUrine Epithelial Uozvz9386-68-10 20:58:00 * Test Item Value Reference Range Interpretation Comments Urine Epithelial Cells (test code = 58595-7) FEW NONE [facility] HospitalUrine Uyuqm1609-83-73 20:48:00* Test Item Value Reference Range Interpretation Comments Urine Color (test code = 5778-6) YELLOW YELLOW [facility] HospitalUrine Qxwnqvs3604-64-67 20:48:00* Test Item Value Reference Range Interpretation Comments Urine Clarity (test code = 55790-4) SL CLOUDY CLEAR [facility] HospitalUrine Specific Orwhazc3205-85-80 20:48:00 * Test Item Value Reference Range Interpretation Comments Urine Specific [place] (test code = 5811-5) 1.020 1.010-1.02 5 [facility] HospitalUrine eA5647-81-68 20:48:00* Test Item Value Reference Range Interpretation Comments Urine pH (test code = 07861-1) 5.5 5-7 [facility] HospitalUrine Leukocyte Nbafipqo6682-85-68 20:48:00* Test Item Value Reference Range Interpretation Comments Urine Leukocyte Esterase (test code = 18081-7) NEGATIVE NEGATIV E [facility] HospitalUrine Hjzahhe3719-52-55 20:48:00* Test Item Value Reference Range Interpretation Comments Urine Nitrite (test code = 85409-3) NEGATIVE NEGATIVE [facility] HospitalUrine Jsfjfwp5938-61-26 20:48:00* Test Item Value Reference Range Interpretation Comments Urine Protein (test code = 19637-6) NEGATIVE NEGATIVE [facility] HospitalUrine Glucose (UA)2019-02-09 20:48:00* Test Item Value Reference Range Interpretation Comments Urine Glucose (UA) (test code = 70902-4) NEGATIVE NEGATIVE [facility] HospitalUrine Dnkjnhp6165-92-70 20:48:00* Test Item Value Reference Range Interpretation Comments Urine Ketones (test code = 55291-4) NEGATIVE NEGATIVE [facility] HospitalUrine Htusozbtxrze4997-98-89 20:48:00* Test Item Value Reference Range Interpretation Comments Urine Urobilinogen (test code = 10121-8) 0.2 0.2-1 [facility] HospitalUrine Afvgbnhsu7126-56-81 20:48:00* Test Item Value Reference Range Interpretation Comments Urine Bilirubin (test code = 1977-8) NEGATIVE NEGATIVE [facility] HospitalUrine Rnatw5321-09-82 20:48:00* Test Item Value Reference Range Interpretation Comments Urine Blood (test code = 51294-3) 3+ NEGATIVE [facility] HospitalCHEST SINGLE (PORTABLE)2019-02-09 20:45:00 [facility] [address] [place] [address] Patient Name: CHRISTINE OTTO MR #: [id number] : 1990 Age/Sex: 28/F Req #: [id number] Adm Physician: Ordered by: JOSE MANUEL COBURN MD Report #: [id number] Location: ER Room/Bed: Procedure: [id number] DX/ CHEST SINGLE (PORTABLE) Exam Date: Exam [...] COPY TO: JOSE MANUEL COBURN MD Urine Ewfc0764-57-77 20:44:00* Test Item Value Reference Range Interpretation Comments Urine Test (test code = 2106-3) NEGATIVE NEGATIVE [facility] BMZWLOCBN9252-10-49 10:04:00 - DIAG MAMM BILATERAL AYESHA CAD DIGITALBILATERAL FIRST EVER DIGITAL DIAGNOSTIC MAMMOGRAM 3D/2D WITH CAD: 12/17/2018CLINICAL: Nipple discharge, right breast, brown. Digital breast tomosynthesis was performed in addition to routine CC and MLO views. Current mammographic images were evaluated by either a [employer]u or a [employer] Image[employer]er CAD (computer aided detection system). No [...] ACR guidelines. Naseem Reese M.D. rb/:12/17/2018 10:04:00 Systems Programmer: Sandra TAY, [facility]-FWletter sent: BIRADS 1-2 Combo FU [...] mammographic images were evaluated by either a [employer] or a [employer] Image[employer] CAD (computer aided detection system). No [...] ACR guidelines. Naseem Reese M.D. rb/:12/17/2018 10:04:00 Systems Programmer: Sandra TAY, [facility]-FWletter sent: BIRADS 1-2 Combo FU Letter Mammogram BI-RADS: 0 Indeterminate Ultrasound BI-RADS: 2 BenignUrine Htyld3802-26-75 00:45:00* Test Item Value Reference Range Interpretation Comments Urine Color (test code = 5778-6) YELLOW YELLOW [facility] HospitalUrine Wbtnfzi0871-14-15 00:45:00* Test Item Value Reference Range Interpretation Comments Urine Clarity (test code = 44044-3) CLOUDY CLEAR H [facility] HospitalUrine Specific Ipemtpx2769-47-71 00:45:00 * Test Item Value Reference Range Interpretation Comments Urine Specific [place] (test code = 5811-5) 1.025 1.010-1.02 5 [facility] HospitalUrine yQ4167-80-74 00:45:00* Test Item Value Reference Range Interpretation Comments Urine pH (test code = 92861-6) 6 5-7 [facility] HospitalUrine Leukocyte Iyzrwkat1445-25-24 00:45:00* Test Item Value Reference Range Interpretation Comments Urine Leukocyte Esterase (test code = 5799-2) NEGATIVE NEGATIVE [facility] HospitalUrine Buqbhug8889-26-17 00:45:00* Test Item Value Reference Range Interpretation Comments Urine Nitrite (test code = 70277-9) NEGATIVE NEGATIVE [facility] HospitalUrine Wgtubtb9239-96-36 00:45:00* Test Item Value Reference Range Interpretation Comments Urine Protein (test code = 5804-0) TRACE NEGATIVE H [facility] Glucose (UA)2018-12-15 00:45:00* Test Item Value Reference Range Interpretation Comments Urine Glucose (UA) (test code = 2349-9) NEGATIVE NEGATIVE [facility] HospitalUrine Kwvpsbp7017-06-19 00:45:00* Test Item Value Reference Range Interpretation Comments Urine Ketones (test code = 12786-8) NEGATIVE NEGATIVE [facility] HospitalUrine Tovnmmotpcer6151-56-50 00:45:00* Test Item Value Reference Range Interpretation Comments Urine Urobilinogen (test code = 62623-0) 0.2 0.2-1 [facility] HospitalUrine Pjjwevbus5456-91-87 00:45:00* Test Item Value Reference Range Interpretation Comments Urine Bilirubin (test code = 1978-6) NEGATIVE NEGATIVE [facility] HospitalUrine Zpxdj7266-99-23 00:45:00* Test Item Value Reference Range Interpretation Comments Urine Blood (test code = 68508-6) 3+ NEGATIVE H [facility] HospitalUrine PDV4326-38-44 00:45:00* Test Item Value Reference Range Interpretation Comments Urine WBC (test code = 5821-4) 21-50 0-5 H [facility] HospitalUrine XTK4645-20-14 00:45:00* Test Item Value Reference Range Interpretation Comments Urine RBC (test code = 02167-6) >50 0-5 H [facility] Bsljneat3665-02-30 00:45:00* Test Item Value Reference Range Interpretation Comments Urine Bacteria (test code = 92423-2) MODERATE NONE H [facility] Epithelial Eydjo9509-45-79 00:45:00 * Test Item Value Reference Range Interpretation Comments Urine Epithelial Cells (test code = 99299-4) FEW NONE [facility] Nesc3897-86-42 00:45:00* Test Item Value Reference Range Interpretation Comments Urine Test (test code = 2106-3) NEGATIVE NEGATIVE Y@IS THE INTERNAL POSITIVE CONTROL OK? [facility] Yfvddin8347-14-08 11:10:00* Test Item Value Reference Range Interpretation Comments Throat Culture (test code = 626-2) Organism: STREPTOCOCCUS GROUP A [facility] Vtlxjvf9542-91-66 11:10:00* Test Item Value Reference Range Interpretation Comments Throat Culture (test code = 626-2) Organism: STREPTOCOCCUS GROUP A [facility] SWQ6462-80-07 13:32:00* Test Item Value Reference Range Interpretation Comments Urine WBC (test code = 5821-4) 6-10 0-5 H [facility] SLQ1083-92-52 13:32:00* Test Item Value Reference Range Interpretation Comments Urine RBC (test code = 13479-0) 11-20 0-5 H [facility] Oweyekhj1576-30-07 13:32:00* Test Item Value Reference Range Interpretation Comments Urine Bacteria (test code = 39192-0) RARE NONE [facility] Epithelial Jhlze6634-38-22 13:32:00 * Test Item Value Reference Range Interpretation Comments Urine Epithelial Cells (test code = 34145-7) FEW NONE [facility] Twksf2416-38-10 13:18:00* Test Item Value Reference Range Interpretation Comments Urine Color (test code = 5778-6) YELLOW YELLOW [facility] Ahynntc3958-75-67 13:18:00* Test Item Value Reference Range Interpretation Comments Urine Clarity (test code = 32373-5) SL CLOUDY CLEAR [facility] Specific Nmkaxwk3354-18-13 13:18:00 * Test Item Value Reference Range Interpretation Comments Urine Specific [place] (test code = 5811-5) 1.020 1.010-1.02 5 [facility] oX5036-90-68 13:18:00* Test Item Value Reference Range Interpretation Comments Urine pH (test code = 85299-2) 6 5-7 [facility] Leukocyte Uovbnfpk9190-68-97 13:18:00* Test Item Value Reference Range Interpretation Comments Urine Leukocyte Esterase (test code = 5799-2) TRACE NEGATIVE H [facility] Lqedsir6217-17-05 13:18:00* Test Item Value Reference Range Interpretation Comments Urine Nitrite (test code = 49318-7) NEGATIVE NEGATIVE [facility] Ungzhko6632-49-24 13:18:00* Test Item Value Reference Range Interpretation Comments Urine Protein (test code = 5804-0) TRACE NEGATIVE H [facility] Glucose (UA)2018-07-29 13:18:00* Test Item Value Reference Range Interpretation Comments Urine Glucose (UA) (test code = 2349-9) NEGATIVE NEGATIVE [facility] Frsrgbo0509-78-84 13:18:00* Test Item Value Reference Range Interpretation Comments Urine Ketones (test code = 25421-2) NEGATIVE NEGATIVE [facility] Dgbqqwwtrnvf3291-50-23 13:18:00* Test Item Value Reference Range Interpretation Comments Urine Urobilinogen (test code = 51682-9) 0.2 0.2-1 [facility] Voufosnlk4995-14-52 13:18:00* Test Item Value Reference Range Interpretation Comments Urine Bilirubin (test code = 1978-6) NEGATIVE NEGATIVE [facility] Tdwrt6834-15-58 13:18:00* Test Item Value Reference Range Interpretation Comments Urine Blood (test code = 41343-5) 3+ NEGATIVE H [facility] HospitalMonoscreen2018-11-20 12:38:00* Test Item Value Reference Range Interpretation Comments Monoscreen (test code = 5215-9) NEGATIVE NEGATIVE [facility] HospitalMonoscreen2018-11-20 12:38:00* Test Item Value Reference Range Interpretation Comments Monoscreen (test code = 5215-9) NEGATIVE NEGATIVE [facility] HospitalMonoscreen2018-11-20 12:38:00* Test Item Value Reference Range Interpretation Comments Monoscreen (test code = 5215-9) NEGATIVE NEGATIVE [facility] HospitalInfluenza Virus Types A,B Antigen 2018-07-29 12:22:00* Test Item Value Reference Range Interpretation Comments Influenza Virus Types A,B Antigen (test code = 71684-3) NEGATIVE NEGATIVE [facility] HospitalInfluenza Virus Types A,B Antigen 2018-07-29 12:22:00* Test Item Value Reference Range Interpretation Comments Influenza Virus Types A,B Antigen (test code = 27981-9) NEGATIVE NEGATIVE [facility] HospitalInfluenza Virus Types A,B Antigen 2018-07-29 12:22:00* Test Item Value Reference Range Interpretation Comments Influenza Virus Types A,B Antigen (test code = 37525-1) NEGATIVE NEGATIVE [facility] HospitalThyroid Stimulating Hormone (TSH) 2018-07-29 12:17:00* Test Item Value Reference Range Interpretation Comments Thyroid Stimulating Hormone (TSH) (test code = 22859-1) 4.481 0.350-4.940 [facility] HospitalThyroid Stimulating Hormone (TSH) 2018-07-29 12:17:00* Test Item Value Reference Range Interpretation Comments Thyroid Stimulating Hormone (TSH) (test code = 63100-9) 4.481 0.350-4.940 [facility] HospitalThyroid Stimulating Hormone (TSH) 2018-07-29 12:17:00* Test Item Value Reference Range Interpretation Comments Thyroid Stimulating Hormone (TSH) (test code = 41388-0) 4.481 0.350-4.940 [facility] HospitalGroup A Streptococcus Obtgjk8296-97-34 12:09:00* Test Item Value Reference Range Interpretation Comments Group A Streptococcus Screen (test code = 09015-6) NEGATIVE NEG ATIVE [facility] HospitalGroup A Streptococcus Fjbfzk1901-74-51 12:09:00* Test Item Value Reference Range Interpretation Comments Group A Streptococcus Screen (test code = 43440-6) NEGATIVE NEG IVE [facility] HospitalGroup A Streptococcus Ylndku2292-91-16 12:09:00* Test Item Value Reference Range Interpretation Comments Group A Streptococcus Screen (test code = 54649-7) NEGATIVE [facility]IVE [facility] Oommv5940-66-62 12:02:00* Test Item Value Reference Range Interpretation Comments Sodium Level (test code = 2951-2) 132 136-145 L [facility] HospitalPotassium Ajvtn5841-41-89 12:02:00* Test Item Value Reference Range Interpretation Comments Potassium Level (test code = 2823-3) 3.4 3.5-5.1 L [facility] HospitalChloride Qixlo1595-33-09 12:02:00* Test Item Value Reference Range Interpretation Comments Chloride Level (test code = 2075-0) 101 98-107 [facility] HospitalCarbon Dioxide Arehw3660-97-55 12:02:00* Test Item Value Reference Range Interpretation Comments Carbon Dioxide Level (test code = 2028-9) 26 22-29 [facility] HospitalAnion Szl9341-43-59 12:02:00* Test Item Value Reference Range Interpretation Comments Anion Gap (test code = 66359-6) 8.4 8-16 [facility] HospitalBlood Urea Snkbbjnx7417-34-38 12:02:00* Test Item Value Reference Range Interpretation Comments Blood Urea Nitrogen (test code = 3094-0) 13 7-26 [facility] HospitalCreatinine2018-11-20 12:02:00* Test Item Value Reference Range Interpretation Comments Creatinine (test code = 2160-0) 1.11 0.57-1.11 [facility] HospitalBUN/Creatinine Wsibx1046-60-73 12:02:00* Test Item Value Reference Range Interpretation Comments BUN/Creatinine Ratio (test code = 3097-3) 12 6-25 [facility] HospitalEstimat Glomerular Filtration Rate 2018-07-29 12:02:00* Test Item Value Reference Range Interpretation Comments Estimat Glomerular Filtration Rate (test code = 763918377) > 60 >60 Ranges were taken from the National Kidney Disease Education Program and the [employer] literature.Reference ranges:60 or greater: Fqjref02-45 ( for 3 consecutive months): Chronic kidney disease 15 or less: Kidney failureMemorial Hermann Cypress HospitalGlucose Nqsyf5507-52-56 12:02:00* Test Item Value Reference Range Interpretation Comments Glucose Level (test code = MOV1894) 124 74-118 H [facility] HospitalCalcium Qhxhs5425-05-60 12:02:00* Test Item Value Reference Range Interpretation Comments Calcium Level (test code = 01575-8) 8.7 8.4-10.2 [facility] HospitalT[facility] Qolhhawia4492-88-03 12:02:00* Test Item Value Reference Range Interpretation Comments Total Bilirubin (test code = 1975-2) 0.4 0.2-1.2 [facility] HospitalAspartate Amino Transf (AST/SGOT) 2018-07-29 12:02:00* Test Item Value Reference Range Interpretation Comments Aspartate Amino Transf (AST/SGOT) (test code = Aspartate Amino Transf (AST/SGOT)) 20 5-34 [facility] HospitalAlanine Aminotransferase (ALT/SGPT) 2018-07-29 12:02:00* Test Item Value Reference Range Interpretation Comments Alanine Aminotransferase (ALT/SGPT) (test code = 1742-6) 12 0-55 [facility] HospitalTotal Ffypigz7279-85-56 12:02:00* Test Item Value Reference Range Interpretation Comments Total Protein (test code = 2885-2) 8.7 6.5-8.1 H [facility] HospitalAlbumin2018-11-20 12:02:00* Test Item Value Reference Range Interpretation Comments Albumin (test code = 1751-7) 2.9 3.5-5.0 L [facility] HospitalGlobulin2018-11-20 12:02:00* Test Item Value Reference Range Interpretation Comments Globulin (test code = 94122-5) 5.8 2.3-3.5 H [facility] HospitalAlbumin/Globulin Zmptw4722-96-14 12:02:00 * Test Item Value Reference Range Interpretation Comments Albumin/Globulin Ratio (test code = 1759-0) 0.5 0.8-2.0 L [facility] HospitalAlkaline Jycoahncrwf3472-05-63 12:02:00* Test Item Value Reference Range Interpretation Comments Alkaline Phosphatase (test code = 6768-6) 20 40-150 L [facility] HospitalLipase2018-11-20 12:02:00* Test Item Value Reference Range Interpretation Comments Lipase (test code = 3040-3) 52 8-78 [facility] Mbemq4512-61-80 12:02:00* Test Item Value Reference Range Interpretation Comments Sodium Level (test code = 2951-2) 132 136-145 L [facility] HospitalPotassium Xltnk1072-68-84 12:02:00* Test Item Value Reference Range Interpretation Comments Potassium Level (test code = 2823-3) 3.4 3.5-5.1 L [facility] HospitalChloride Vajyo9741-63-26 12:02:00* Test Item Value Reference Range Interpretation Comments Chloride Level (test code = 2075-0) 101 98-107 [facility] HospitalCarbon Dioxide Jngrp7554-77-84 12:02:00* Test Item Value Reference Range Interpretation Comments Carbon Dioxide Level (test code = 2028-9) 26 22-29 [facility] HospitalAnion Rii9895-22-69 12:02:00* Test Item Value Reference Range Interpretation Comments Anion Gap (test code = 93556-5) 8.4 8-16 [facility] HospitalBlood Urea Xtnlybym3580-89-84 12:02:00* Test Item Value Reference Range Interpretation Comments Blood Urea Nitrogen (test code = 3094-0) 13 7-26 [facility] HospitalCreatinine2018-11-20 12:02:00* Test Item Value Reference Range Interpretation Comments Creatinine (test code = 2160-0) 1.11 0.57-1.11 [facility] HospitalBUN/Creatinine Qaifa6879-65-80 12:02:00* Test Item Value Reference Range Interpretation Comments BUN/Creatinine Ratio (test code = 3097-3) 12 6-25 [facility] HospitalEstimat Glomerular Filtration Rate 2018-07-29 12:02:00* Test Item Value Reference Range Interpretation Comments Estimat Glomerular Filtration Rate (test code = 694541810) > 60 >60 Ranges were taken from the National Kidney Disease Education Program and the [employer] literature.Reference ranges:60 or greater: Stzaka88-78 ( for 3 consecutive months): Chronic kidney disease 15 or less: Kidney failureCH[facility] HospitalGlucose Grmjd9992-78-60 12:02:00* Test Item Value Reference Range Interpretation Comments Glucose Level (test code = JSK9918) 124 74-118 H [facility] HospitalCalcium Kkzkv3878-73-29 12:02:00* Test Item Value Reference Range Interpretation Comments Calcium Level (test code = 42234-3) 8.7 8.4-10.2 [facility] HospitalTotal Spxgpnbbv5836-85-95 12:02:00* Test Item Value Reference Range Interpretation Comments Total Bilirubin (test code = 1975-2) 0.4 0.2-1.2 [facility] HospitalAspartate Amino Transf (AST/SGOT) 2018-07-29 12:02:00* Test Item Value Reference Range Interpretation Comments Aspartate Amino Transf (AST/SGOT) (test code = Aspartate Amino Transf (AST/SGOT)) 20 5-34 [facility] HospitalAlanine Aminotransferase (ALT/SGPT) 2018-07-29 12:02:00* Test Item Value Reference Range Interpretation Comments Alanine Aminotransferase (ALT/SGPT) (test code = 1742-6) 12 0-55 [facility] HospitalTotal Plwvkbi0163-15-80 12:02:00* Test Item Value Reference Range Interpretation Comments Total Protein (test code = 2885-2) 8.7 6.5-8.1 H [facility] HospitalAlbumin2018-11-20 12:02:00* Test Item Value Reference Range Interpretation Comments Albumin (test code = 1751-7) 2.9 3.5-5.0 L [facility] HospitalGlobulin2018-11-20 12:02:00* Test Item Value Reference Range Interpretation Comments Globulin (test code = 94813-3) 5.8 2.3-3.5 H [facility] HospitalAlbumin/Globulin Qwdgm5411-54-07 12:02:00 * Test Item Value Reference Range Interpretation Comments Albumin/Globulin Ratio (test code = 1759-0) 0.5 0.8-2.0 L [facility] HospitalAlkaline Lrafakpgmdo5615-15-83 12:02:00* Test Item Value Reference Range Interpretation Comments Alkaline Phosphatase (test code = 6768-6) 20 40-150 L [facility] HospitalLipase2018-11-20 12:02:00* Test Item Value Reference Range Interpretation Comments Lipase (test code = 3040-3) 52 8-78 [facility] HospitalLipase2018-11-20 12:02:00* Test Item Value Reference Range Interpretation Comments Lipase (test code = 3040-3) 52 8-78 [facility] HospitalWhite Blood Drzpk1579-97-48 11:42:00* Test Item Value Reference Range Interpretation Comments White Blood Count (test code = 6690-2) 9.60 4.8-10.8 [facility] HospitalRed Blood Gvsbh9428-72-76 11:42:00* Test Item Value Reference Range Interpretation Comments Red Blood Count (test code = 789-8) 3.32 3.6-5.1 L [facility] HospitalHemoglobin2018-11-20 11:42:00* Test Item Value Reference Range Interpretation Comments Hemoglobin (test code = 46451-8) 10.1 12.0-16.0 L [facility] HospitalHematocrit2018-11-20 11:42:00* Test Item Value Reference Range Interpretation Comments Hematocrit (test code = 4544-3) 31.6 34.2-44.1 L [facility] HospitalMean Corpuscular Wkzgrf4029-49-40 11:42:00* Test Item Value Reference Range Interpretation Comments Mean Corpuscular Volume (test code = 787-2) 95.2 81-99 [facility] HospitalMean Corpuscular Zqvsilidqy3226-47-74 11:42:00* Test Item Value Reference Range Interpretation Comments Mean Corpuscular Hemoglobin (test code = 785-6) 30.4 28-32 [facility] HospitalMean Corpuscular Hemoglobin Concent 2018-07-29 11:42:00* Test Item Value Reference Range Interpretation Comments Mean Corpuscular Hemoglobin Concent (test code = 786-4) 32.0 31-35 [facility] HospitalRed Cell Distribution Aniyr1987-65-15 11:42:00* Test Item Value Reference Range Interpretation Comments Red Cell Distribution Width (test code = 34896-1) 13.5 11.7 -14.4 [facility] HospitalPlatelet Fafqa9476-92-14 11:42:00* Test Item Value Reference Range Interpretation Comments Platelet Count (test code = 777-3) 249 140-360 [facility] HospitalNeutrophils (%) (Auto)2018-07-29 11:42:00 * Test Item Value Reference Range Interpretation Comments Neutrophils (%) (Auto) (test code = 46677-7) 75.8 38.7-80.0 [facility] HospitalLymphocytes (%) (Auto)2018-07-29 11:42:00 * Test Item Value Reference Range Interpretation Comments Lymphocytes (%) (Auto) (test code = 736-9) 19.3 18.0-39.1 [facility] HospitalMonocytes (%) (Auto)2018-07-29 11:42:00* Test Item Value Reference Range Interpretation Comments Monocytes (%) (Auto) (test code = 5905-5) 4.3 4.4-11.3 L [facility] HospitalEosinophils (%) (Auto)2018-07-29 11:42:00 * Test Item Value Reference Range Interpretation Comments Eosinophils (%) (Auto) (test code = 713-8) 0.0 0.0-6.0 [facility] HospitalBasophils (%) (Auto)2018-07-29 11:42:00* Test Item Value Reference Range Interpretation Comments Basophils (%) (Auto) (test code = 706-2) 0.2 0.0-1.0 [facility] HospitalIM GRANULOCYTES %2018-07-29 11:42:00* Test Item Value Reference Range Interpretation Comments IM GRANULOCYTES % (test code = IM GRANULOCYTES %) 0.4 0.0- 1.0 [facility] HospitalNeutrophils # (Auto)2018-07-29 11:42:00* Test Item Value Reference Range Interpretation Comments Neutrophils # (Auto) (test code = 751-8) 7.3 2.1-6.9 H [facility] HospitalLymphocytes # (Auto)2018-07-29 11:42:00* Test Item Value Reference Range Interpretation Comments Lymphocytes # (Auto) (test code = 52074-3) 1.9 1.0-3.2 [facility] HospitalMonocytes # (Auto)2018-07-29 11:42:00* Test Item Value Reference Range Interpretation Comments Monocytes # (Auto) (test code = 742-7) 0.4 0.2-0.8 [facility] HospitalEosinophils # (Auto)2018-07-29 11:42:00* Test Item Value Reference Range Interpretation Comments Eosinophils # (Auto) (test code = 711-2) 0.0 0.0-0.4 [facility] HospitalBasophils # (Auto)2018-07-29 11:42:00* Test Item Value Reference Range Interpretation Comments Basophils # (Auto) (test code = 704-7) 0.0 0.0-0.1 [facility] HospitalAbsolute Immature Granulocyte (auto 2018-07-29 11:42:00* Test Item Value Reference Range Interpretation Comments Absolute Immature Granulocyte (auto (dana t code = Absolute Immature Granulocyte (auto) 0.04 0-0.1 [facility] HospitalWhite Blood Pdvtb9096-21-01 11:42:00* Test Item Value Reference Range Interpretation Comments White Blood Count (test code = 6690-2) 9.60 4.8-10.8 [facility] HospitalRed Blood Fdyql6346-74-41 11:42:00* Test Item Value Reference Range Interpretation Comments Red Blood Count (test code = 789-8) 3.32 3.6-5.1 L [facility] HospitalHemoglobin2018-11-20 11:42:00* Test Item Value Reference Range Interpretation Comments Hemoglobin (test code = 60622-0) 10.1 12.0-16.0 L [facility] HospitalHematocrit2018-11-20 11:42:00* Test Item Value Reference Range Interpretation Comments Hematocrit (test code = 4544-3) 31.6 34.2-44.1 L [facility] HospitalMean Corpuscular Idpldp6365-53-08 11:42:00* Test Item Value Reference Range Interpretation Comments Mean Corpuscular Volume (test code = 787-2) 95.2 81-99 [facility] HospitalMean Corpuscular Fbwjxyjknk4428-50-02 11:42:00* Test Item Value Reference Range Interpretation Comments Mean Corpuscular Hemoglobin (test code = 785-6) 30.4 28-32 [facility] Corpuscular Hemoglobin Concent 2018-07-29 11:42:00* Test Item Value Reference Range Interpretation Comments Mean Corpuscular Hemoglobin Concent (test code = 786-4) 32.0 31-35 [facility] HospitalRed Cell Distribution Hdyhl1109-26-90 11:42:00* Test Item Value Reference Range Interpretation Comments Red Cell Distribution Width (test code = 04306-6) 13.5 11.7 -14.4 [facility] HospitalPlatelet Dppnb4694-96-62 11:42:00* Test Item Value Reference Range Interpretation Comments Platelet Count (test code = 777-3) 249 140-360 [facility] HospitalNeutrophils (%) (Auto)2018-07-29 11:42:00 * Test Item Value Reference Range Interpretation Comments Neutrophils (%) (Auto) (test code = 57669-2) 75.8 38.7-80.0 [facility] HospitalLymphocytes (%) (Auto)2018-07-29 11:42:00 * Test Item Value Reference Range Interpretation Comments Lymphocytes (%) (Auto) (test code = 736-9) 19.3 18.0-39.1 [facility] HospitalMonocytes (%) (Auto)2018-07-29 11:42:00* Test Item Value Reference Range Interpretation Comments Monocytes (%) (Auto) (test code = 5905-5) 4.3 4.4-11.3 L [facility] HospitalEosinophils (%) (Auto)2018-07-29 11:42:00 * Test Item Value Reference Range Interpretation Comments Eosinophils (%) (Auto) (test code = 713-8) 0.0 0.0-6.0 [facility] HospitalBasophils (%) (Auto)2018-07-29 11:42:00* Test Item Value Reference Range Interpretation Comments Basophils (%) (Auto) (test code = 706-2) 0.2 0.0-1.0 [facility] HospitalIM GRANULOCYTES %2018-07-29 11:42:00* Test Item Value Reference Range Interpretation Comments IM GRANULOCYTES % (test code = IM GRANULOCYTES %) 0.4 0.0- 1.0 [facility] HospitalNeutrophils # (Auto)2018-07-29 11:42:00* Test Item Value Reference Range Interpretation Comments Neutrophils # (Auto) (test code = 751-8) 7.3 2.1-6.9 H [facility] HospitalLymphocytes # (Auto)2018-07-29 11:42:00* Test Item Value Reference Range Interpretation Comments Lymphocytes # (Auto) (test code = 58579-5) 1.9 1.0-3.2 [facility] HospitalMonocytes # (Auto)2018-07-29 11:42:00* Test Item Value Reference Range Interpretation Comments Monocytes # (Auto) (test code = 742-7) 0.4 0.2-0.8 [facility] HospitalEosinophils # (Auto)2018-07-29 11:42:00* Test Item Value Reference Range Interpretation Comments Eosinophils # (Auto) (test code = 711-2) 0.0 0.0-0.4 [facility] HospitalBasophils # (Auto)2018-07-29 11:42:00* Test Item Value Reference Range Interpretation Comments Basophils # (Auto) (test code = 704-7) 0.0 0.0-0.1 [facility] HospitalAbsolute Immature Granulocyte (auto 2018-07-29 11:42:00* Test Item Value Reference Range Interpretation Comments Absolute Immature Granulocyte (auto (dana t code = Absolute Immature Granulocyte (auto) 0.04 0-0.1 [facility] Mfjgh0499-61-53 07:08:00* Test Item Value Reference Range Interpretation Comments Sodium Level (test code = 2951-2) 134 136-145 L [facility] HospitalPotassium Kehvl1775-22-81 07:08:00* Test Item Value Reference Range Interpretation Comments Potassium Level (test code = 2823-3) 4.2 3.5-5.1 [facility] HospitalChloride Unfjb1287-42-86 07:08:00* Test Item Value Reference Range Interpretation Comments Chloride Level (test code = 2075-0) 104 98-107 [facility] HospitalCarbon Dioxide Xakwa6483-51-59 07:08:00* Test Item Value Reference Range Interpretation Comments Carbon Dioxide Level (test code = 2028-9) 23 22-29 [facility] HospitalAnion Mtm3548-07-97 07:08:00* Test Item Value Reference Range Interpretation Comments Anion Gap (test code = 52013-8) 11.2 8-16 [facility] HospitalBlood Urea Swtsawyl3649-09-88 07:08:00* Test Item Value Reference Range Interpretation Comments Blood Urea Nitrogen (test code = 3094-0) 19 7-26 [facility] HospitalCreatinine2018-08-25 07:08:00* Test Item Value Reference Range Interpretation Comments Creatinine (test code = 2160-0) 0.88 0.57-1.11 [facility] HospitalBUN/Creatinine Qoqii2009-74-77 07:08:00* Test Item Value Reference Range Interpretation Comments BUN/Creatinine Ratio (test code = 3097-3) 22 03-03 [facility] HospitalEstimat Glomerular Filtration Rate 2018-05-03 07:08:00* Test Item Value Reference Range Interpretation Comments Estimat Glomerular Filtration Rate (test code = 68890-4) 60- >60 Ranges were taken from the National Kidney Disease Education Program and the [employer] literature.Reference ranges:60 or greater: Szrztn32-07 ( for 3 consecutive months): Chronic kidney disease 15 or less: Kidney failureCHI [facility]arro Regional HospitalGlucose Injrk0644-28-64 07:08:00* Test Item Value Reference Range Interpretation Comments Glucose Level (test code = KPY0841) 100 74-118 [facility] HospitalCalcium Gmlhw1074-51-62 07:08:00* Test Item Value Reference Range Interpretation Comments Calcium Level (test code = 16711-1) 8.5 8.4-10.2 [facility] HospitalWhite Blood Sqdwx0900-30-33 06:46:00* Test Item Value Reference Range Interpretation Comments White Blood Count (test code = 6690-2) 4.82 4.8-10.8 [facility] HospitalRed Blood Ssobj1918-56-99 06:46:00* Test Item Value Reference Range Interpretation Comments Red Blood Count (test code = 789-8) 2.77 3.6-5.1 L [facility] HospitalHemoglobin2018-08-25 06:46:00* Test Item Value Reference Range Interpretation Comments Hemoglobin (test code = 55761-5) 8.5 12.0-16.0 L [facility] HospitalHematocrit2018-08-25 06:46:00* Test Item Value Reference Range Interpretation Comments Hematocrit (test code = 4544-3) 25.9 34.2-44.1 L [facility] HospitalMean Corpuscular Qilqdv0438-32-46 06:46:00* Test Item Value Reference Range Interpretation Comments Mean Corpuscular Volume (test code = 787-2) 93.5 81-99 [facility] HospitalMean Corpuscular Dhayptopmx3624-42-59 06:46:00* Test Item Value Reference Range Interpretation Comments Mean Corpuscular Hemoglobin (test code = 785-6) 30.7 28-32 [facility] HospitalMean Corpuscular Hemoglobin Concent 2018-05-03 06:46:00* Test Item Value Reference Range Interpretation Comments Mean Corpuscular Hemoglobin Concent (test code = 786-4) 32.8 31-35 [facility] HospitalRed Cell Distribution Ovbku9538-59-37 06:46:00* Test Item Value Reference Range Interpretation Comments Red Cell Distribution Width (test code = 55615-4) 14.1 11.7 -14.4 [facility] HospitalPlatelet Xdadj3456-55-64 06:46:00* Test Item Value Reference Range Interpretation Comments Platelet Count (test code = 777-3) 204 140-360 [facility] HospitalNeutrophils (%) (Auto)2018-05-03 06:46:00 * Test Item Value Reference Range Interpretation Comments Neutrophils (%) (Auto) (test code = 71829-7) 59.1 38.7-80.0 [facility] HospitalLymphocytes (%) (Auto)2018-05-03 06:46:00 * Test Item Value Reference Range Interpretation Comments Lymphocytes (%) (Auto) (test code = 736-9) 35.7 18.0-39.1 [facility] HospitalMonocytes (%) (Auto)2018-05-03 06:46:00* Test Item Value Reference Range Interpretation Comments Monocytes (%) (Auto) (test code = 5905-5) 4.6 4.4-11.3 [facility] HospitalEosinophils (%) (Auto)2018-05-03 06:46:00 * Test Item Value Reference Range Interpretation Comments Eosinophils (%) (Auto) (test code = 713-8) 0.2 0.0-6.0 [facility] HospitalBasophils (%) (Auto)2018-05-03 06:46:00* Test Item Value Reference Range Interpretation Comments Basophils (%) (Auto) (test code = 706-2) 0.2 0.0-1.0 [facility] HospitalIM GRANULOCYTES %2018-05-03 06:46:00* Test Item Value Reference Range Interpretation Comments IM GRANULOCYTES % (test code = IM GRANULOCYTES %) 0.2 0.0- 1.0 [facility] HospitalNeutrophils # (Auto)2018-05-03 06:46:00* Test Item Value Reference Range Interpretation Comments Neutrophils # (Auto) (test code = 751-8) 2.9 2.1-6.9 [facility] HospitalLymphocytes # (Auto)2018-05-03 06:46:00* Test Item Value Reference Range Interpretation Comments Lymphocytes # (Auto) (test code = 56190-2) 1.7 1.0-3.2 [facility] HospitalMonocytes # (Auto)2018-05-03 06:46:00* Test Item Value Reference Range Interpretation Comments Monocytes # (Auto) (test code = 742-7) 0.2 0.2-0.8 [facility] HospitalEosinophils # (Auto)2018-05-03 06:46:00* Test Item Value Reference Range Interpretation Comments Eosinophils # (Auto) (test code = 711-2) 0.0 0.0-0.4 [facility] HospitalBasophils # (Auto)2018-05-03 06:46:00* Test Item Value Reference Range Interpretation Comments Basophils # (Auto) (test code = 704-7) 0.0 0.0-0.1 [facility] HospitalAbsolute Immature Granulocyte (auto 2018-05-03 06:46:00* Test Item Value Reference Range Interpretation Comments Absolute Immature Granulocyte (auto (dana t code = Absolute Immature Granulocyte (auto) 0.01 0-0.1 [facility] HospitalUrine Kqtg6686-64-51 09:56:00* Test Item Value Reference Range Interpretation Comments Urine Test (test code = 2106-3) NEGATIVE NEGATIVE [facility] HospitalUrine Vcud3760-53-09 09:56:00* Test Item Value Reference Range Interpretation Comments Urine Test (test code = 2106-3) NEGATIVE NEGATIVE [facility] HospitalVitamin B12 Gumki7157-09-62 08:03:00* Test Item Value Reference Range Interpretation Comments Vitamin B12 Level (test code = 07343-2) 560 213-816 [facility] HospitalFolate2018-08-23 08:03:00* Test Item Value Reference Range Interpretation Comments Folate (test code = 2284-8) 7.6 7.0-15.4 [facility] HospitalVitamin B12 Patdj7867-65-17 08:03:00* Test Item Value Reference Range Interpretation Comments Vitamin B12 Level (test code = 85747-4) 560 213-816 [facility] HospitalFolate2018-08-23 08:03:00* Test Item Value Reference Range Interpretation Comments Folate (test code = 2284-8) 7.6 7.0-15.4 [facility] HospitalVitamin B12 Exduw3587-88-88 08:03:00* Test Item Value Reference Range Interpretation Comments Vitamin B12 Level (test code = 38444-4) 560 213-816 [facility] HospitalFolate2018-08-23 08:03:00* Test Item Value Reference Range Interpretation Comments Folate (test code = 2284-8) 7.6 7.0-15.4 [facility] HospitalVitamin B12 Rzubt7540-74-43 08:03:00* Test Item Value Reference Range Interpretation Comments Vitamin B12 Level (test code = 27983-7) 560 213-816 [facility] HospitalFolate2018-08-23 08:03:00* Test Item Value Reference Range Interpretation Comments Folate (test code = 2284-8) 7.6 7.0-15.4 [facility] HospitalDifferential Total Cells Counted 2018-05-01 07:51:00* Test Item Value Reference Range Interpretation Comments Differential Total Cells Counted (test code = Differen tial Total Cells Counted) 100 [facility] HospitalNeutrophils % (Manual)2018-05-01 07:51:00 * Test Item Value Reference Range Interpretation Comments Neutrophils % (Manual) (test code = 67627-0) 61 40-74 [facility] HospitalLymphocytes % (Manual)2018-05-01 07:51:00 * Test Item Value Reference Range Interpretation Comments Lymphocytes % (Manual) (test code = 737-7) 31 19-48 [facility] HospitalMonocytes % (Manual)2018-05-01 07:51:00* Test Item Value Reference Range Interpretation Comments Monocytes % (Manual) (test code = 744-3) 6 3.4-9.0 [facility] HospitalEosinophils % (Manual)2018-05-01 07:51:00 * Test Item Value Reference Range Interpretation Comments Eosinophils % (Manual) (test code = 714-6) 1 0-7 [facility] HospitalMyelocytes %2018-05-01 07:51:00* Test Item Value Reference Range Interpretation Comments Myelocytes % (test code = 749-2) 1 0-0 H [facility] HospitalPlatelet Cbcpoiqa8290-87-98 07:51:00* Test Item Value Reference Range Interpretation Comments Platelet Estimate (test code = 75080-8) ADEQUATE [facility] HospitalPlatelet Morphology Nmpdymo8883-99-45 07:51:00* Test Item Value Reference Range Interpretation Comments Platelet Morphology Comment (test code = 54586-7) NORMAL [facility] HospitalHypochromasia2018-08-23 07:51:00* Test Item Value Reference Range Interpretation Comments Hypochromasia (test code = 728-6) MODERATE [facility] HospitalRed Cell Morphology Gbsfujn1491-12-59 07:51:00* Test Item Value Reference Range Interpretation Comments Red Cell Morphology Comment (test code = 6742-1) NORMAL [facility] HospitalDifferential Total Cells Counted 2018-05-01 07:51:00* Test Item Value Reference Range Interpretation Comments Differential Total Cells Counted (test code = Differen tial Total Cells Counted) 100 [facility] HospitalNeutrophils % (Manual)2018-05-01 07:51:00 * Test Item Value Reference Range Interpretation Comments Neutrophils % (Manual) (test code = 15393-4) 61 40-74 [facility] HospitalLymphocytes % (Manual)2018-05-01 07:51:00 * Test Item Value Reference Range Interpretation Comments Lymphocytes % (Manual) (test code = 737-7) 31 19-48 [facility] HospitalMonocytes % (Manual)2018-05-01 07:51:00* Test Item Value Reference Range Interpretation Comments Monocytes % (Manual) (test code = 744-3) 6 3.4-9.0 [facility] HospitalEosinophils % (Manual)2018-05-01 07:51:00 * Test Item Value Reference Range Interpretation Comments Eosinophils % (Manual) (test code = 714-6) 1 0-7 [facility] HospitalMyelocytes %2018-05-01 07:51:00* Test Item Value Reference Range Interpretation Comments Myelocytes % (test code = 749-2) 1 0-0 H [facility] HospitalPlatelet Qhacdxjl4131-57-37 07:51:00* Test Item Value Reference Range Interpretation Comments Platelet Estimate (test code = 00822-9) ADEQUATE [facility] HospitalPlatelet Morphology Tlrcyyb0986-59-22 07:51:00* Test Item Value Reference Range Interpretation Comments Platelet Morphology Comment (test code = 27893-2) NORMAL [facility] HospitalHypochromasia2018-08-23 07:51:00* Test Item Value Reference Range Interpretation Comments Hypochromasia (test code = 728-6) MODERATE [facility] HospitalRed Cell Morphology Jcctgaa1745-59-15 07:51:00* Test Item Value Reference Range Interpretation Comments Red Cell Morphology Comment (test code = 6742-1) NORMAL [facility] HospitalDifferential Total Cells Counted 2018-05-01 07:51:00* Test Item Value Reference Range Interpretation Comments Differential Total Cells Counted (test code = Differen tial Total Cells Counted) 100 [facility] HospitalNeutrophils % (Manual)2018-05-01 07:51:00 * Test Item Value Reference Range Interpretation Comments Neutrophils % (Manual) (test code = 61119-2) 61 40-74 [facility] HospitalLymphocytes % (Manual)2018-05-01 07:51:00 * Test Item Value Reference Range Interpretation Comments Lymphocytes % (Manual) (test code = 737-7) 31 19-48 [facility] HospitalMonocytes % (Manual)2018-05-01 07:51:00* Test Item Value Reference Range Interpretation Comments Monocytes % (Manual) (test code = 744-3) 6 3.4-9.0 [facility] HospitalEosinophils % (Manual)2018-05-01 07:51:00 * Test Item Value Reference Range Interpretation Comments Eosinophils % (Manual) (test code = 714-6) 1 0-7 [facility] HospitalMyelocytes %2018-05-01 07:51:00* Test Item Value Reference Range Interpretation Comments Myelocytes % (test code = 749-2) 1 0-0 H [facility] HospitalPlatelet Uygdnmkm1130-60-68 07:51:00* Test Item Value Reference Range Interpretation Comments Platelet Estimate (test code = 88268-9) ADEQUATE [facility] HospitalPlatelet Morphology Ebdihgt5733-62-70 07:51:00* Test Item Value Reference Range Interpretation Comments Platelet Morphology Comment (test code = 09636-5) NORMAL [facility] HospitalHypochromasia2018-08-23 07:51:00* Test Item Value Reference Range Interpretation Comments Hypochromasia (test code = 728-6) MODERATE [facility] HospitalRed Cell Morphology Hlkknqg6996-47-78 07:51:00* Test Item Value Reference Range Interpretation Comments Red Cell Morphology Comment (test code = 6742-1) NORMAL [facility] HospitalDifferential Total Cells Counted 2018-05-01 07:51:00* Test Item Value Reference Range Interpretation Comments Differential Total Cells Counted (test code = Differbrigid tial Total Cells Counted) 100 [facility] HospitalNeutrophils % (Manual)2018-05-01 07:51:00 * Test Item Value Reference Range Interpretation Comments Neutrophils % (Manual) (test code = 47350-3) 61 40-74 [facility] HospitalLymphocytes % (Manual)2018-05-01 07:51:00 * Test Item Value Reference Range Interpretation Comments Lymphocytes % (Manual) (test code = 737-7) 31 19-48 [facility] HospitalMonocytes % (Manual)2018-05-01 07:51:00* Test Item Value Reference Range Interpretation Comments Monocytes % (Manual) (test code = 744-3) 6 3.4-9.0 [facility] HospitalEosinophils % (Manual)2018-05-01 07:51:00 * Test Item Value Reference Range Interpretation Comments Eosinophils % (Manual) (test code = 714-6) 1 0-7 [facility] HospitalMyelocytes %2018-05-01 07:51:00* Test Item Value Reference Range Interpretation Comments Myelocytes % (test code = 749-2) 1 0-0 H [facility] HospitalPlatelet Vwmtknfe5868-27-69 07:51:00* Test Item Value Reference Range Interpretation Comments Platelet Estimate (test code = 09972-5) ADEQUATE [facility] HospitalPlatelet Morphology Kkrenqc1690-59-12 07:51:00* Test Item Value Reference Range Interpretation Comments Platelet Morphology Comment (test code = 56246-3) NORMAL [facility] HospitalHypochromasia2018-08-23 07:51:00* Test Item Value Reference Range Interpretation Comments Hypochromasia (test code = 728-6) MODERATE [facility] HospitalRed Cell Morphology Vddlpor1059-05-96 07:51:00* Test Item Value Reference Range Interpretation Comments Red Cell Morphology Comment (test code = 6742-1) NORMAL [facility] HospitalFerritin2018-08-23 07:50:00* Test Item Value Reference Range Interpretation Comments Ferritin (test code = 2276-4) 203.96 4.63-204.00 [facility] HospitalFerritin2018-08-23 07:50:00* Test Item Value Reference Range Interpretation Comments Ferritin (test code = 2276-4) 203.96 4.63-204.00 [facility] HospitalFerritin2018-08-23 07:50:00* Test Item Value Reference Range Interpretation Comments Ferritin (test code = 2276-4) 203.96 4.63-204.00 [facility] HospitalFerritin2018-08-23 07:50:00* Test Item Value Reference Range Interpretation Comments Ferritin (test code = 2276-4) 203.96 4.63-204.00 [facility]2018-08-23 07:17:00* Test Item Value Reference Range Interpretation Comments Iron Level (test code = 2498-4) 15 50-170 L [facility] HospitalT[facility] Binding Aumouymd4453-04-87 07:17:00* Test Item Value Reference Range Interpretation Comments Total Iron Binding Capacity (test code = 2500-7) 221 261-4 78 L [facility] HospitalPercent Iron Wzkoyxitae4046-75-07 07:17:00* Test Item Value Reference Range Interpretation Comments Percent Iron Saturation (test code = 2502-3) 7 15-50 L [facility] HospitalTransferrin2018-08-23 07:17:00* Test Item Value Reference Range Interpretation Comments Transferrin (test code = 3034-6) 158 180-382 L [facility]2018-08-23 07:17:00* Test Item Value Reference Range Interpretation Comments Iron Level (test code = 2498-4) 15 50-170 L [facility] HospitalT[facility] Iron Binding Grgtaydw4481-08-96 07:17:00* Test Item Value Reference Range Interpretation Comments Total Iron Binding Capacity (test code = 2500-7) 221 261-4 78 L [facility] HospitalPercent Iron Ltxhmabzyo5094-89-73 07:17:00* Test Item Value Reference Range Interpretation Comments Percent Iron Saturation (test code = 2502-3) 7 15-50 L [facility] HospitalTransferrin2018-08-23 07:17:00* Test Item Value Reference Range Interpretation Comments Transferrin (test code = 3034-6) 158 180-382 L [facility]2018-08-23 07:17:00* Test Item Value Reference Range Interpretation Comments Iron Level (test code = 2498-4) 15 50-170 L [facility] HospitalTotal Iron Binding Jgrzjoih3260-41-25 07:17:00* Test Item Value Reference Range Interpretation Comments Total Iron Binding Capacity (test code = 2500-7) 221 261-4 78 L [facility] HospitalPercent Iron Hrayzdbxfa0218-67-39 07:17:00* Test Item Value Reference Range Interpretation Comments Percent Iron Saturation (test code = 2502-3) 7 15-50 L [facility] HospitalTransferrin2018-08-23 07:17:00* Test Item Value Reference Range Interpretation Comments Transferrin (test code = 3034-6) 158 180-382 L [facility] HospitalIron Frgwo9111-98-34 07:17:00* Test Item Value Reference Range Interpretation Comments Iron Level (test code = 2498-4) 15 50-170 L [facility] HospitalT[facility] Iron Binding Imgbwbjs7029-88-71 07:17:00* Test Item Value Reference Range Interpretation Comments Total Iron Binding Capacity (test code = 2500-7) 221 261-4 78 L [facility] HospitalPercent Iron Ugzfdfiecn5406-30-11 07:17:00* Test Item Value Reference Range Interpretation Comments Percent Iron Saturation (test code = 2502-3) 7 15-50 L [facility] HospitalTransferrin2018-08-23 07:17:00* Test Item Value Reference Range Interpretation Comments Transferrin (test code = 3034-6) 158 180-382 L [facility] HospitalThyroid Stimulating Hormone (TSH) 2018-04-29 19:02:00* Test Item Value Reference Range Interpretation Comments Thyroid Stimulating Hormone (TSH) (test code = 80725-7) 2.675 0.350-4.940 [facility] HospitalAnisocytosis2018-08-21 07:29:00* Test Item Value Reference Range Interpretation Comments Anisocytosis (test code = 702-1) SLIGHT [facility] HospitalAnisocytosis2018-08-21 07:29:00* Test Item Value Reference Range Interpretation Comments Anisocytosis (test code = 702-1) SLIGHT [facility] HospitalAnisocytosis2018-08-21 07:29:00* Test Item Value Reference Range Interpretation Comments Anisocytosis (test code = 702-1) SLIGHT [facility] HospitalAnisocytosis2018-08-21 07:29:00* Test Item Value Reference Range Interpretation Comments Anisocytosis (test code = 702-1) SLIGHT [facility] HospitalTotal Povpxkvwe1712-57-22 07:27:00* Test Item Value Reference Range Interpretation Comments Total Bilirubin (test code = 1975-2) 0.4 0.2-1.2 [facility] HospitalAspartate Amino Transf (AST/SGOT) 2018-04-29 07:27:00* Test Item Value Reference Range Interpretation Comments Aspartate Amino Transf (AST/SGOT) (test code = Aspartate Amino Transf (AST/SGOT)) 20 5-34 [facility] HospitalAlanine Aminotransferase (ALT/SGPT) 2018-04-29 07:27:00* Test Item Value Reference Range Interpretation Comments Alanine Aminotransferase (ALT/SGPT) (test code = 1742-6) 10 0-55 [facility] HospitalTotal Yrdkwmq5830-84-18 07:27:00* Test Item Value Reference Range Interpretation Comments Total Protein (test code = 2885-2) 8.8 6.5-8.1 H [facility] HospitalAlbumin2018-08-21 07:27:00* Test Item Value Reference Range Interpretation Comments Albumin (test code = 1751-7) 3.0 3.5-5.0 L [facility] HospitalGlobulin2018-08-21 07:27:00* Test Item Value Reference Range Interpretation Comments Globulin (test code = 50931-9) 5.8 2.3-3.5 H [facility] HospitalAlbumin/Globulin Rigow9996-54-41 07:27:00 * Test Item Value Reference Range Interpretation Comments Albumin/Globulin Ratio (test code = 1759-0) 0.5 0.8-2.0 L [facility] HospitalAlkaline Ireeqmgrcjx5963-40-12 07:27:00* Test Item Value Reference Range Interpretation Comments Alkaline Phosphatase (test code = 6768-6) 14 40-150 L [facility] HospitalTriglycerides Djzzg4674-33-42 07:27:00* Test Item Value Reference Range Interpretation Comments Triglycerides Level (test code = 2571-8) 65 0-149 [facility] HospitalCholesterol Tloqv7644-99-99 07:27:00* Test Item Value Reference Range Interpretation Comments Cholesterol Level (test code = 2093-3) 99 0-199 Less than 200 mg/dL Low Qoui012 - 239 mg/dL Borderline Mmia127 m g/dl and greater High Risk [facility] HospitalLDL Hxswwojlpra4757-80-10 07:27:00* Test Item Value Reference Range Interpretation Comments LDL Cholesterol (test code = 2089-1) 57 60-130 L [facility] Xivngtttsem3004-38-84 07:27:00* Test Item Value Reference Range Interpretation Comments HDL Cholesterol (test code = 2085-9) 29 40-60 L [facility] HospitalCholesterol/HDL Zvdar5504-93-34 07:27:00 * Test Item Value Reference Range Interpretation Comments Cholesterol/HDL Ratio (test code = 9830-1) 3.4 3.0-3.6 [facility] HospitalTriglycerides Cuogn7453-03-56 07:27:00* Test Item Value Reference Range Interpretation Comments Triglycerides Level (test code = 2571-8) 65 0-149 [facility] HospitalCholesterol Btlkj7412-85-06 07:27:00* Test Item Value Reference Range Interpretation Comments Cholesterol Level (test code = 2093-3) 99 0-199 Less than 200 mg/dL Low Ifxl410 - 239 mg/dL Borderline Ilei458 m g/dl and greater High Risk [facility] HospitalLDL Tthtzyjuhpx5333-95-59 07:27:00* Test Item Value Reference Range Interpretation Comments LDL Cholesterol (test code = 2089-1) 57 60-130 L [facility] Msjyzrlfbcz4850-42-73 07:27:00* Test Item Value Reference Range Interpretation Comments HDL Cholesterol (test code = 2085-9) 29 40-60 L [facility] HospitalCholesterol/HDL Hvfmc4530-44-06 07:27:00 * Test Item Value Reference Range Interpretation Comments Cholesterol/HDL Ratio (test code = 9830-1) 3.4 3.0-3.6 [facility] HospitalTriglycerides Gzham2222-05-41 07:27:00* Test Item Value Reference Range Interpretation Comments Triglycerides Level (test code = 2571-8) 65 0-149 [facility] HospitalCholesterol Jokqi2630-34-21 07:27:00* Test Item Value Reference Range Interpretation Comments Cholesterol Level (test code = 2093-3) 99 0-199 Less than 200 mg/dL Low Dxnl524 - 239 mg/dL Borderline Uwju424 m g/dl and greater High Risk [facility] HospitalLDL Mifwqbzgqss1014-58-06 07:27:00* Test Item Value Reference Range Interpretation Comments LDL Cholesterol (test code = 2089-1) 57 60-130 L [facility] HospitalHDL Lzxqhphcerw1238-05-30 07:27:00* Test Item Value Reference Range Interpretation Comments HDL Cholesterol (test code = 2085-9) 29 40-60 L [facility] HospitalCholesterol/HDL Irkbu3771-88-31 07:27:00 * Test Item Value Reference Range Interpretation Comments Cholesterol/HDL Ratio (test code = 9830-1) 3.4 3.0-3.6 [facility] HospitalTriglycerides Ghmgq0280-22-17 07:27:00* Test Item Value Reference Range Interpretation Comments Triglycerides Level (test code = 2571-8) 65 0-149 [facility] HospitalCholesterol Ufivc7642-26-87 07:27:00* Test Item Value Reference Range Interpretation Comments Cholesterol Level (test code = 2093-3) 99 0-199 Less than 200 mg/dL Low Qatv094 - 239 mg/dL Borderline Kseq393 m g/dl and greater High Risk [facility] HospitalLDL Pobeazxmtqa6888-32-76 07:27:00* Test Item Value Reference Range Interpretation Comments LDL Cholesterol (test code = 2089-1) 57 60-130 L [facility] HospitalHDL Nofgsvnddab8346-71-91 07:27:00* Test Item Value Reference Range Interpretation Comments HDL Cholesterol (test code = 2085-9) 29 40-60 L [facility] HospitalCholesterol/HDL Gttkl2550-93-24 07:27:00 * Test Item Value Reference Range Interpretation Comments Cholesterol/HDL Ratio (test code = 9830-1) 3.4 3.0-3.6 [facility] HospitalHemoglobin A1c Tyfgtmv6441-77-65 07:26:00 * Test Item Value Reference Range Interpretation Comments Hemoglobin A1c Percent (test code = Hemoglobin A1c Percent) 5.0 4.0-7.0 [facility] HospitalHemoglobin A1c Ekcsmks9880-41-23 07:26:00 * Test Item Value Reference Range Interpretation Comments Hemoglobin A1c Percent (test code = Hemoglobin A1c Percent) 5.0 4.0-7.0 [facility] HospitalHemoglobin A1c Sazxsqq5456-35-47 07:26:00 * Test Item Value Reference Range Interpretation Comments Hemoglobin A1c Percent (test code = Hemoglobin A1c Percent) 5.0 4.0-7.0 [facility] HospitalHemoglobin A1c Dmxquth2401-36-35 07:26:00 * Test Item Value Reference Range Interpretation Comments Hemoglobin A1c Percent (test code = Hemoglobin A1c Percent) 5.0 4.0-7.0 [facility] HospitalProthrombin [id number] 18:29:00* Test Item Value Reference Range Interpretation Comments Prothrombin Time (test code = 5902-2) 14.4 11.9-14.5 [facility] International Ratio 2018-04-28 18:29:00* Test Item Value Reference Range Interpretation Comments Prothromb Time International Ratio (test code = 6301-6) 1.21 Oral Anticoagulant Therapy INR Values:1. Low Intensity Therapy 1.5 - 2.02 . Moderate Intensity Therapy 2.0 - 3.03. High Intensity Therapy(1) 2.5 - 3. 54. High Intensity Therapy(2) 3.0 - 4.05. Panic Value INR > 5.0 [facility]Act[facility] Partial Thromboplast Time 2018-04-28 18:29:00* Test Item Value Reference Range Interpretation Comments Activated Partial Thromboplast Time (test code = 80387-6) 26.6 23.8-35.5 [facility] [id number] 18:29:00* Test Item Value Reference Range Interpretation Comments Prothrombin Time (test code = 5902-2) 14.4 11.9-14.5 [facility] International Ratio 2018-04-28 18:29:00* Test Item Value Reference Range Interpretation Comments Prothromb Time International Ratio (test code = 6301-6) 1.21 Oral Anticoagulant Therapy INR Values:1. Low Intensity Therapy 1.5 - 2.02 . Moderate Intensity Therapy 2.0 - 3.03. High Intensity Therapy(1) 2.5 - 3. 54. High Intensity Therapy(2) 3.0 - 4.05. Panic Value INR > 5.0 [facility] Partial Thromboplast Time 2018-04-28 18:29:00* Test Item Value Reference Range Interpretation Comments Activated Partial Thromboplast Time (test code = 25848-4) 26.6 23.8-35.5 [facility] [id number] 18:29:00* Test Item Value Reference Range Interpretation Comments Prothrombin Time (test code = 5902-2) 14.4 11.9-14.5 [facility] International Ratio 2018-04-28 18:29:00* Test Item Value Reference Range Interpretation Comments Prothromb Time International Ratio (test code = 6301-6) 1.21 Oral Anticoagulant Therapy INR Values:1. Low Intensity Therapy 1.5 - 2.02 . Moderate Intensity Therapy 2.0 - 3.03. High Intensity Therapy(1) 2.5 - 3. 54. High Intensity Therapy(2) 3.0 - 4.05. Panic Value INR > 5.0 [facility] Partial Thromboplast Time 2018-04-28 18:29:00* Test Item Value Reference Range Interpretation Comments Activated Partial Thromboplast Time (test code = 51217-9) 26.6 23.8-35.5 [facility]
[2020-05-11] MEDS ORDERED: LIDOCAINE VISC 2% SOLN 15 ML UDC PO PRN (18:45)
[2020-05-11] MEDS ORDERED: MORPHINE SULFATE 2 MG/ML SYR 1ML IV PRN (18:45)
[2020-05-11] MEDS ORDERED: TRAMADOL HCL 50 MG TAB PO PRN (18:45)
[2020-05-11] MEDS ORDERED: HYDROCODONE/APAP 5MG-325MG TAB PO PRN (18:45)
--- NOTE | 2020-05-11 19:20 | NUR ---
RECEIVED BEDSIDE REPORT. PATIENT IS RESTING IN BED, AAOX3. RESP EVEN AND UNLABORED. NO ACUTE DISTRESS NOTED. TELE IN PLACE. EDUCATED PT ABOUT FALL PRECAUTIONS. PT VERBALIZED UNDERSTANDING. BED IS LOW AND LOCKED. SIDE RAILS X2. CALL LIGHT WITH IN EASY REACH. ALL SAFETY MEASURES IN PLACE. PT DENIES NEEDS AT THIS TIME. CONTINUE TO MONITOR CLOSELY
[2020-05-11] MEDS ORDERED: SODIUM CHLORIDE 0.9% 250ML 500 ML ONE (19:53)
[2020-05-11 20:15] VITALS: BP 128/85
[2020-05-11 20:25] VITALS: BP 128/85
[2020-05-11] MEDS ORDERED: NIFEDIPINE ER30 M1 PO (20:53)
[2020-05-11 21:00] VITALS: BP 128/85
--- NOTE | 2020-05-11 22:25 | NUR ---
SPOKE TO DR LOVE. CHANGE ATTENDING TO DR. LOVE. NOTIFIED JARET FULTON WHO IMPLEMENTATION SPECIALIST FOR DR PANIAGUA
[2020-05-11] MEDS ORDERED: ZOLPIDEM TARTRATE 5 MG TAB PO PRN (22:30)
[2020-05-11] MEDS ORDERED: ACETAMINOPHEN 325 MG TAB PO PRN (22:30)
[2020-05-11] MEDS ORDERED: ONDANSETRON HCL INJ 2MG/ML 2ML 2 MG/ML VIAL IV PRN (22:30)
[2020-05-11] MEDS ORDERED: DOCUSATE SODIUM 100 MG CAP PO PRN (22:30)
[2020-05-11 22:59] LABS: BILIRUBIN,URINE SMALL (NEGATIVE); CLARITY,URINE SL CLOUDY (CLEAR); COLOR,URINE YELLOW (YELLOW); KETONES,URINE 2+ (NEGATIVE); LEUKOCYTE ESTERASE ,URINE NEGATIVE (NEGATIVE); NITRITE,URINE NEGATIVE (NEGATIVE); PROTEIN,URINE DIPSTICK 2+ (NEGATIVE); URINE UROBILINOGEN 1 mg/dL (0.2 - 1)
[2020-05-11 23:03] LABS: BACTERIA,URINE FEW /HPF; EPITHELIAL CELLS,URINE MANY /LPF; WBC,URINE (MAN) 0-5 /HPF (0-5)
[2020-05-12] VITALS (7 sets, daily range): BP systolic 108–134; BP diastolic 69–81
--- NOTE | 2020-05-12 02:19 | NUR ---
2 units of platelet given, pt tolerated well. transfusion records placed in patient chart.
--- NOTE | 2020-05-12 02:30 | NUR ---
after receiving 2 units of platelet, pt states bleeding is less now. noticed only scant amount of blood oozing out from the tooth.
[2020-05-12 05:44] LABS: BASOPHILS % 0.3 % (0.0-1.0); HEMATOCRIT 23.2 % (34.2-44.1); HEMOGLOBIN 7.3 g/dL (12.0-16.0); LYMPHOCYTES # (AUTO) 0.9 (1.0-3.2); LYMPHOCYTES % 25.7 % (18.0-39.1); MEAN CORPUSCULAR HEMOGLOBIN 27.8 pg (28-32); MEAN CORPUSCULAR HGB CONC 31.5 g/dL (31-35); MEAN CORPUSCULAR VOLUME 88.2 fL (81-99); MONOCYTES # (AUTO) 0.2 (0.2-0.8); MONOCYTES % 6.9 % (4.4-11.3); NEUTROPHILS # (AUTO) 2.2 (2.1-6.9); NEUTROPHILS % 66.5 % (38.7-80.0); RED BLOOD COUNT 2.63 x10e6/uL (3.6-5.1); RED CELL DISTRIBUTION WIDTH 14.6 % (11.7-14.4)
[2020-05-12 06:00] LABS: ANION GAP 13.9 mmol/L (8-16); BLOOD UREA NITROGEN 19 mg/dL (7-26); BUN/CREATININE RATIO 18 (6-25); CALCIUM 8.2 mg/dL (8.4-10.2); CARBON DIOXIDE 18 mmol/L (22-29); CHLORIDE 105 mmol/L (98-107); CREATININE, SERUM 1.08 mg/dL (0.57-1.11); EST GLOMERULAR FILTRATION RATE > 60 ML/MIN (60-); GLUCOSE 117 mg/dL (74-118); POTASSIUM 3.9 mmol/L (3.5-5.1); SODIUM 133 mmol/L (136-145)
--- NOTE | 2020-05-12 06:37 | NUR ---
H&P PRIMARY CARE PHYSICIAN: Stephen Crocker MD, PhD. CHIEF COMPLAINT: intractable bleeding from gum HISTORY OF PRESENT ILLNESS: This is a 29-year-old woman with hx B/L axillary LAD, went for dental procedure, developed intractable bleeding, sent here, found to have pancytopenia and platelet count of 1000. PAST MEDICAL HISTORY: Intermittent headaches, epistaxis, severe anemia s/p transfusion, Obesity, Left ovarian torsion, Pelvic LAD, Leukopenia, Anemia, multifocal PNA, sepsis, B/L Axillary LAD, Mediastinal LAD, Pelvic LAD, pleural effusion 1.Iron-deficiency Anemia 2.HTN 3.GERD 4.Anxiety d/o 5.Insomnia 6.Rheumatoid arthritis 7.Severe Obesity 8.BMI 42 9.Constipation 10.Mild depression 11.Pelvic LAD 12.Mediastinal LAD 13.Axillary LAD 14.Left ovarian torsion RESOLVED Blurred visionRESOLVED RESOLVED Intractable Epistaxis.RESOLVED RESOLVED - had a miscarriage in 02/2020 RESOLVED RSOLVED nausea RESOLVED Past Surgical History: 2 C- Sections (8974-3938); Nose Surgery (2017); Blood Transfusion (2018) PAST SURGICAL HISTORY: . ALLERGIES: PER ELECTRONIC MEDICAL RECORD. FAMILY/SOCIAL HISTORY: The patient is . She has 2 children. No alcohol, illicits or cigarettes. MEDICATIONS: Per electronic medical record. REVIEW OF SYSTEMS: Denies any dizziness, chest pain, fever, chills, sweats, nausea, vomiting, diarrhea, headache. PHYSICAL EXAMINATION VITAL SIGNS: Have been reviewed. GENERAL: A tired-appearing woman resting in bed. HEENT: Anicteric. Dried blood on molars of right jaw CARDIOVASCULAR: Normal S1 and S2. LUNGS: Reduced BS ABDOMEN: mildly tender left pelvic region EXTREMITIES: No edema or calf tenderness. NEUROLOGICAL: Alert and oriented times 3. She moves all extremities. SKIN: Dry. PSYCHIATRIC: Normal affect. LABS: Reviewed. MEDICATIONS: Reviewed. ASSESSMENT: 29yoF Pancytopenia- hematology consult; platelet transfusions overnight; use steroids; will need BM biopsy Hx B/L axillary and Mediastinal LAD and Pelvic LAD- check CT chest/abd/pelvis; Had benign Bx in past; Had Oncological w-up in past. Severe Obesity- hba1c/lipids BMI 43.9 RA- contributory to pancytopenia. steroids; outpt mgmt. Prop: lovenox; pepcid dispo: f/u studies; check CBC later today; Stephen Crocker MD, PhD.
--- NOTE | 2020-05-12 06:40 | NUR ---
called office Mary Smith informed answering service lady about the consult order for bleeding and low platelet.
[2020-05-12 06:47] LABS: PLATELET COUNT 4 x10e3/uL (140-360)
--- NOTE | 2020-05-12 06:50 | NUR ---
talked to Dr Lowry about platelet result and hgb 7.3. said plan for now is to give solumedrol now and recheck cbc in 2 hours. call MD with the result.
[2020-05-12] MEDS: METHYLPREDNISOLONE SOD SUCC 40 MG/ML VIAL 1ML IV SCH ×2 (06:54→20:33)
--- NOTE | 2020-05-12 08:19 | NUR ---
HEMATOLOGY/ONCOLOGY CONSULTATION NOTE REFERRING PHYSICIAN: Dr. Stephen Crocker CONSULTING PHYSICIAN: Dr. Mary Lowry REASON FOR CONSULTATION: Thrombocytopenia, pancytopenia, bleeding HISTORY OF PRESENT ILLNESS: Ms. Zhu is a pleasant 29 yo F with past medical history of hypertension and anemia requiring PRBC transfusion who recently noticed bleeding from her tooth over the weekend. She states it stopped then reoccurred on Saturday. She went to her dentist who did a tooth extraction yesterday and then her gums started bleeding. She states she noticed tiny petechial lesions all over her body and inside her mouth after the procedure. Upon arrival to the ED, her platelet count was 1. She received 2 jumbo platelet transfusion and platelet count increased to 4. Due to persistent critical thrombocytopenia, Hematology/Oncology has been consulted to assist with management. Of note, patient states she has had one other episode of epistaxis in 2017 when she required PRBC transfusion however was never told about her platelet count be ing low. She does c/o intermittent menorrhagia. She also states she was here in November 2017 for Influenza plus Pneumonia and CT chest showed multiple "reactive" lymph nodes. She did follow up with her PCP in December 2019 after that admission and has left axillary lymph node excision with biopsy which was negative for malignancy. Patient denies any other hematologic disorders or personal history of cancers. Presently, patient is resting comfortably in bed. She does note to have petechial lesions. Gum bleeding has stopped. She denies dyspnea, chest pain, abd ominal pain, vaginal bleeding, dizziness, or headache. ALLERGIES: Levaquin PAST MEDICAL HISTORY: 1. Hypertension 2. Anemia PAST SURGICAL HISTORY: 1. Left axillary lymph node excisional biopsy 2. section 3. Tooth extraction PAST FAMILY HISTORY: Father side cancer (uncertain). otherwise no hematologic disorders or cancers SOCIAL HISTORY: Denies tobacco use, admits to occasional alcohol use, denies illicit drug use REVIEW OF SYSTEMS: 14 point ROS negative unless otherwise stated in the HPI. PHYSICAL EXAM: Vital signs: Reviewed per MAR, afebrile General: NAD, morbid obesity HEENT: NT, AT; petechial lesions inside mouth Neck: Supple Cardiovascular: RRR Pulmonary: Decreased breath sounds bilaterally Abdomen: Soft, NTND, BS x 4 Musculoskeletal: Moves all Extremities: No cyanosis, no edema, petechial lesions to BUE/BLE Neurologic: Awake, alert Psychiatric: Cooperative LABORATORY/RADIOLOGY DATA: WBC: 3.34 Hgb: 7.3 Hct: 23.2 Plt: 4 PT: 14.1 INR: 1.04 BUN: 19 Creatinine: 1.08 CT C/A/P: pending ASSESSMENT/PLAN: Ms. Zhu is a pleasant 29 yo F with past medical history of hypertension and anemia requiring PRBC transfusion who recently noticed bleeding from her tooth over the weekend. She states it stopped then reoccurred on Saturday. She went to her dentist who did a tooth extraction yesterday and then her gums started bleeding. She states she noticed tiny petechial lesions all over her body and inside her mouth after the procedure. Upon arrival to the ED, her platelet count was 1. She received 2 jumbo platelet transfusion and platelet count increased to 4. Due to persistent critical thrombocytopenia, Hematology/Oncology has been consulted to assist with management. Of note, patient states she has had one other episode of epistaxis in 2017 when she required PRBC transfusion however was never told about her platelet count be ing low. She does c/o intermittent menorrhagia. She also states she was here in November 2017 for Influenza plus Pneumonia and CT chest showed multiple "reactive" lymph nodes. She did follow up with her PCP in December 2019 after that admission and has left axillary lymph node excision with biopsy which was negative for malignancy. Patient denies any other hematologic disorders or personal history of cancers. 1. Thrombocytopenia: Appears possible immune mediated. Does not appear coagulopathy however will repeat INR and obtain DIC panel. Will also obtain acute hepatitis panel. CT abd/pelvis to eval bleeding, liver, and spleen. Patient is s/p 2 jumbo platelets with minimal improvement in platelet count from 1 to 4. Start on high dose solumedrol and recheck counts in 2 hours. Monitor very closely. 2. Petechial lesions: Likely secondary to #1 possible ITP. Should improve once platelets improve. Monitor for now. 3. Anemia: Likely acute on chronic secondary to gum bleeding. Recheck CBC after solumedrol and if hemoglobin remains low, will transfuse 1 unit PRBC. Obtain baseline anemia panel for now and follow up results. Monitor closely. 4. Lymphadenopathy/hilar mass: Previous CT chest in November [address] and hilar mass from infection, however, underlying malignancy could not be ruled out. Left axillary LN biopsy in December 2019 negative for malignancy per patient. CT C/A/P pending, follow up results. Patient may benefit from PETCT scan which can be done outpatient. 5. Leukopenia: Uncertain etiology. Intermittent low counts after reviewing previous medical records. Will obtain peripheral smear to rule out any abnormal cells as well as acute hepatitis panel and anemia panel to rule out nutritional deficiency. Due to pancytopenia, patient may benefit from FISH/flow cytometry and possible bone marrow biopsy in the outpatient setting pending further workup. Monitor for now. 6. DVT proph: SCDs due to severe thrombocytopenia. Above plan discussed with Dr. Lowry. Thank you for the consult. I will be available. Please call with questions.
[2020-05-12 09:44] LABS: LYMPHOCYTES # (AUTO) 0.8 (1.0-3.2); LYMPHOCYTES % 24.8 % (18.0-39.1); MEAN CORPUSCULAR HEMOGLOBIN 27.3 pg (28-32); MEAN CORPUSCULAR HGB CONC 31.8 g/dL (31-35); MONOCYTES # (AUTO) 0.1 (0.2-0.8); MONOCYTES % 4.6 % (4.4-11.3); NEUTROPHILS # (AUTO) 2.1 (2.1-6.9); NEUTROPHILS % 70.3 % (38.7-80.0); RED BLOOD COUNT 2.71 x10e6/uL (3.6-5.1); RED CELL DISTRIBUTION WIDTH 14.6 % (11.7-14.4)
[2020-05-12 09:52] LABS: INR 1.08; PROTHROMBIN TIME 14.6 seconds (11.9-14.5)
[2020-05-12 09:56] LABS: FIBRINOGEN MAIN LAB 326 mg/dL (204-462)
--- NOTE | 2020-05-12 10:13 | NUR ---
PT OFF UNIT FOR TESTING.
[2020-05-12 10:16] LABS: HEMATOCRIT 23.3 % (34.2-44.1); HEMOGLOBIN 7.4 g/dL (12.0-16.0); PLATELET COUNT 2 x10e3/uL (140-360)
[2020-05-12 10:18] LABS: PLATELET ESTIMATE MARKEDLY DECREASED
--- NOTE | 2020-05-12 10:38 | NUR ---
PT RETURN TO UNIT, RESP EVEN AND LABORED AT THIS TIME.
[2020-05-12] MEDS ORDERED: SODIUM CHLORIDE 0.9% 250ML 250 ML IV SCH (11:15)
[2020-05-12 11:26] LABS: FERRITIN 116.93 ng/mL (4.63-204.00)
--- NOTE | 2020-05-12 11:34 | Diagnostic Imaging Report ---
CT of the chest, abdomen, and pelvis, with contrast, 05/12/2020. History: Weakness, petechia. Comparison: CT chest 11/27/2019. CT abdomen and pelvis 07/22/2019. Technique: Technique: Multidetector CT scanning of the chest, abdomen, and pelvis was performed from the level of the lung apices to the inferior pubic rami after intravenous and oral administration of contrast. Coronal and sagittal multiplanar reformations were obtained. RADIATION DOSE: Total DLP: 1013 mGy*cm Dose modulation, iterative reconstruction, and/or weight based adjustment of the mA/kV was utilized to reduce the radiation dose to as low as reasonably achievable. Discussion: CHEST: The atria, ventricles, aorta, and main pulmonary artery are normal in size. The thyroid is unremarkable. The thyroid is unremarkable. Bilateral axillary adenopathy is unchanged except for resection of one left maxillary node, with surgical clips now present. There is no evidence of mediastinal adenopathy. There is bibasilar and lingular subsegmental atelectasis. There is no evidence of consolidation, mass, or pleural effusion. ABDOMEN: The liver is mildly enlarged measuring 17 cm in length, but there is no focal hepatic abnormality. The gallbladder, biliary tree, spleen, pancreas, adrenal glands, and kidneys are normal. The hepatic vein, portal vein, and splenic vein are patent. The abdominal aorta is within normal limits for size. Evaluation of bowel is limited without oral contrast. There is no bowel dilatation. Scattered subcentimeter retroperitoneal nodes are present, nonspecific. There is no evidence of adenopathy or free fluid. PELVIS: The bladder, uterus, and adnexa are unremarkable. There is no evidence of free fluid. Mildly enlarged bilateral inguinal and external and internal iliac lymph nodes are present measuring up to 1.3 cm bilaterally. BONES AND SOFT TISSUES: No acute abnormality. IMPRESSION: 1. Bilateral axillary adenopathy is again noted, with interval excisional biopsy of one left axillary node. Subsegmental atelectasis is present bilaterally without acute or suspicious pulmonary findings. 2. Mild hepatomegaly without focal hepatic abnormality. Otherwise unremarkable abdomen. 3. Mild bilateral pelvic and inguinal adenopathy without significant change. Signed by: Eric Hurst on 05/12/2020 11:31 AM
[2020-05-12] MEDS ORDERED: DEXAMETHASONE SOD PHOS 10 MG/1 ML VIAL IV ONE (12:45)
[2020-05-12] MEDS ORDERED: SODIUM CHLORIDE 0.9% 50ML 50 ML ONE (13:28)
[2020-05-12] MEDS ORDERED: IOPAMIDOL 370 MG/ML 200 ML INFUS..BTL INJ ONE (13:28)
[2020-05-12] MEDS: DIPHENHYDRAMINE HCL INJ 50 MG/ML VIAL IV SCH (15:03)
[2020-05-12] MEDS: ACETAMINOPHEN 325 MG TAB PO SCH (15:03)
--- NOTE | 2020-05-12 15:52 | NUR ---
Nutrition Screen Note RD Recommendation for Physician: -Continue current diet as ordered Plan of Care: RD following, monitoring for tolerance and adequacy Nutrition reason for involvement: Nutrition Risk Trigger Primary Diagnose(s): thrombocytopenia PMH: HTN, anemia Ht: 66 in Wt: 272 lb BMI: 43.9 kg/m2 IBW: [address] Assessment: (05/12/20) Chart reviewed. Labs and meds reviewed. Pt is a 29 year old female admitted with thrombocytopenia. Per chart, pt reports unsure weight loss. Per weight history, pt weighed 268 lbs in November 2019. Pt currently has a weight of 272 lbs in chart. Therefore, no recent weight loss is evident. It is recorded that pt consumed 75% of breakfast and 100% of lunch today. Will continue to monitor Current Diet: cardiac Malnutrition Evaluation (05/12/20) The patient does not meet criteria for a specified degree of malnutrition at this time. Will re-evaluate at follow-up as appropriate. Diet Education Needs Assessment: RD is available for diet education as needed Nutrition Care Level: low Signed: Quiana Clay RD, LD
[2020-05-12] MEDS ORDERED: SODIUM CHLORIDE 0.9% 250ML 250 ML ONE (15:56)
[2020-05-12] MEDS: IMMUNE GLOBULIN IV SCH (16:00)
--- NOTE | 2020-05-12 19:10 | NUR ---
RECEIVED BEDSIDE REPORT. PATIENT IS RESTING IN BED, AAOX3. RESP EVEN AND UNLABORED. NO ACUTE DISTRESS NOTED. TELE IN PLACE. PATIENT DENIES OF ANY BLEEDING AT THIS TIME. EDUCATED PT ABOUT FALL PRECAUTIONS. PT VERBALIZED UNDERSTANDING. BED IS LOW AND LOCKED. SIDE RAILS X2. CALL LIGHT WITH IN EASY REACH. ALL SAFETY MEASURES IN PLACE. PT DENIES NEEDS AT THIS TIME. CONTINUE TO MONITOR CLOSELY
[2020-05-13] VITALS (7 sets, daily range): BP systolic 116–145; BP diastolic 75–86
[2020-05-13 03:53] LABS: BASOPHILS % 0.2 % (0.0-1.0); HEMATOCRIT 23.9 % (34.2-44.1); HEMOGLOBIN 7.5 g/dL (12.0-16.0); LYMPHOCYTES % 23.1 % (18.0-39.1); MEAN CORPUSCULAR HEMOGLOBIN 27.9 pg (28-32); MEAN CORPUSCULAR HGB CONC 31.4 g/dL (31-35); MEAN CORPUSCULAR VOLUME 88.8 fL (81-99); MONOCYTES # (AUTO) 0.3 (0.2-0.8); MONOCYTES % 5.8 % (4.4-11.3); NEUTROPHILS % 70.2 % (38.7-80.0); RED BLOOD COUNT 2.69 x10e6/uL (3.6-5.1); RED CELL DISTRIBUTION WIDTH 14.9 % (11.7-14.4)
[2020-05-13 04:00] LABS: PLATELET COUNT 26 x10e3/uL (140-360)
[2020-05-13 04:10] LABS: LYMPHOCYTES % (MANUAL) 26 % (19-48); MONOCYTES % (MANUAL) 8 % (3.4-9.0); NEUTROPHILS % (MANUAL) 66 % (40-74)
[2020-05-13 04:11] LABS: ANISOCYTOSIS SLIGHT; HYPOCHROMASIA SLIGHT; PLATELET ESTIMATE MARKEDLY DECREASED; PLATELET MORPHOLOGY COMMENT FEW LARGE; RBC MORPHOLOGY COMMENT NORMAL
[2020-05-13 04:13] LABS: ANION GAP 13.6 mmol/L (8-16); BLOOD UREA NITROGEN 19 mg/dL (7-26); BUN/CREATININE RATIO 18 (6-25); CALCIUM 8.1 mg/dL (8.4-10.2); CARBON DIOXIDE 19 mmol/L (22-29); CHLORIDE 105 mmol/L (98-107); CREATININE, SERUM 1.06 mg/dL (0.57-1.11); EST GLOMERULAR FILTRATION RATE > 60 ML/MIN (60-); GLUCOSE 140 mg/dL (74-118); POTASSIUM 4.6 mmol/L (3.5-5.1); SODIUM 133 mmol/L (136-145)
--- NOTE | 2020-05-13 06:26 | NUR ---
NOTIFIED JARET STEPHENSON WHO LANDMAN FOR DR BRYANT PLT THIS MORNING WENT UP TO 26. POWER MANAGER ORDER AM LAB FOR TOMORROW AND CONTINUE IGG INFUSION ORDER
--- NOTE | 2020-05-13 06:44 | NUR ---
IM- progress note O/N see below REVIEW OF SYSTEMS: Denies any dizziness, chest pain, fever, chills, sweats, nausea, vomiting, diarrhea, headache, no vision changes; no focal limb weakness PHYSICAL EXAMINATION VITAL SIGNS: Have been reviewed. GENERAL: A tired-appearing woman resting in bed. HEENT: Anicteric. Dried blood on molars of right jaw CARDIOVASCULAR: Normal S1 and S2. LUNGS: Reduced BS ABDOMEN: mildly tender left pelvic region EXTREMITIES: No edema or calf tenderness. NEUROLOGICAL: Alert and oriented times 3. She moves all extremities. SKIN: Dry. PSYCHIATRIC: Normal affect. LABS: Reviewed. MEDICATIONS: Reviewed. ASSESSMENT: 29yoF Pancytopenia- hematology consult; platelet transfusions overnight; use steroids; will need BM biopsy Hx B/L axillary and Mediastinal LAD and Pelvic LAD- check CT chest/abd/pelvis; Had benign Bx in past; Had Oncological w-up in past. Severe Obesity- hba1c/lipids BMI 43.9 RA- contributory to pancytopenia. steroids; outpt mgmt. Prop: lovenox; pepcid dispo: f/u studies; check CBC later today; 9-4 counts improving; no more bleeding; BM bx Stephen Crocker MD, PhD.
[2020-05-13] MEDS: METHYLPREDNISOLONE SOD SUCC 40 MG/ML VIAL 1ML IV SCH ×2 (09:41→20:28)
--- NOTE | 2020-05-13 12:21 | NUR ---
SENIOR TERADATA DEVELOPER is here making rounds for Dr. Lowry. I notified her that the lab called and said patient has rare antibodies and that they have contacted the blood center and they are still trying to source blood and do not know when it will be here. OK to continue to wait to receive blood and continue with IVIG in the mean time
--- NOTE | 2020-05-13 12:45 | NUR ---
ASSESSMENT: Spiritual concern Pt perplexed by recent series of illnesses. Pt states she "doesn't understand why this is happening." Pt states she has had multiple health related problems this year including a miscarriage a couple of months ago. Intervention: Provided unhurried pastoral presence and empathic listening. Facilitated illness review. Provided prayer. Outcome: Pt expressed appreciation for support. Will follow as able. [facility] O: [phone]
[2020-05-13] MEDS ORDERED: SODIUM FERRIC GLUCONATE COMPLX 125 MG in SODIUM CHLORIDE 0.9% 100 ML 100 ML IV ONE (13:00)
[2020-05-13] MEDS: ACETAMINOPHEN 325 MG TAB PO SCH (15:30)
[2020-05-13] MEDS: DIPHENHYDRAMINE HCL INJ 50 MG/ML VIAL IV SCH (15:30)
[2020-05-13] MEDS: IMMUNE GLOBULIN IV SCH (16:08)
[2020-05-14] VITALS (8 sets, daily range): BP systolic 117–157; BP diastolic 51–77
[2020-05-14 05:53] LABS: BASOPHILS % 0.1 % (0.0-1.0); HEMATOCRIT 24.9 % (34.2-44.1); LYMPHOCYTES # (AUTO) 1.5 (1.0-3.2); MEAN CORPUSCULAR HEMOGLOBIN 29.3 pg (28-32); MEAN CORPUSCULAR HGB CONC 32.1 g/dL (31-35); MEAN CORPUSCULAR VOLUME 91.2 fL (81-99); MONOCYTES # (AUTO) 0.5 (0.2-0.8); MONOCYTES % 6.8 % (4.4-11.3); NEUTROPHILS # (AUTO) 5.1 (2.1-6.9); PLATELET COUNT 84 x10e3/uL (140-360); RED BLOOD COUNT 2.73 x10e6/uL (3.6-5.1); RED CELL DISTRIBUTION WIDTH 15.2 % (11.7-14.4)
[2020-05-14 06:06] LABS: ANION GAP 13.6 mmol/L (8-16); BLOOD UREA NITROGEN 21 mg/dL (7-26); BUN/CREATININE RATIO 19 (6-25); CALCIUM 8.2 mg/dL (8.4-10.2); CARBON DIOXIDE 19 mmol/L (22-29); CHLORIDE 104 mmol/L (98-107); CREATININE, SERUM 1.08 mg/dL (0.57-1.11); EST GLOMERULAR FILTRATION RATE > 60 ML/MIN (60-); GLUCOSE 130 mg/dL (74-118); POTASSIUM 4.6 mmol/L (3.5-5.1); SODIUM 132 mmol/L (136-145)
[2020-05-14] MEDS: METHYLPREDNISOLONE SOD SUCC 40 MG/ML VIAL 1ML IV SCH ×2 (09:19→21:32)
--- NOTE | 2020-05-14 11:00 | NUR ---
hematology dr to see pt
[2020-05-14] MEDS: ACETAMINOPHEN 325 MG TAB PO SCH (14:29)
[2020-05-14] MEDS: DIPHENHYDRAMINE HCL INJ 50 MG/ML VIAL IV SCH (14:29)
[2020-05-14] MEDS: IMMUNE GLOBULIN IV SCH (14:30)
--- NOTE | 2020-05-14 15:30 | NUR ---
pt resting in bed, talking on phone. no c/o pain, infusion maintaining
--- NOTE | 2020-05-14 17:30 | NUR ---
received pt from previous shift, pt resting in bed
--- NOTE | 2020-05-14 18:08 | NUR ---
pt resting, infusion cont, no distress
--- NOTE | 2020-05-14 20:40 | NUR ---
HEMATOLOGY/ONCOLOGY CONSULTATION NOTE REFERRING PHYSICIAN: Dr. Stephen Crocker CONSULTING PHYSICIAN: Dr. Mary Lowry REASON FOR CONSULTATION: Thrombocytopenia, pancytopenia, bleeding CC: :Patient resting comfortably in bed, appears NAD. No specific complaints. Denies any further gum bleeding or bleeding in other areas. IVIG third dose to be given today. REVIEW OF SYSTEMS: 14 point ROS negative unless otherwise stated in the HPI. PHYSICAL EXAM: Vital signs: Reviewed per MAR, afebrile General: NAD, morbid obesity HEENT: NT, AT; petechial lesions inside mouth Neck: Supple Cardiovascular: RRR Pulmonary: Decreased breath sounds bilaterally Abdomen: Soft, NTND, BS x 4 Musculoskeletal: Moves all Extremities: No cyanosis, no edema, petechial lesions to BUE/BLE Neurologic: Awake, alert Psychiatric: Cooperative CT C/A/P: IMPRESSION: 1. Bilateral axillary adenopathy is again noted, with interval excisional biopsy of one left axillary node. Subsegmental atelectasis is present bilaterally without acute or suspicious pulmonary findings. 2. Mild hepatomegaly without focal hepatic abnormality. Otherwise unremarkable abdomen. 3. Mild bilateral pelvic and inguinal adenopathy without significant change. ASSESSMENT/PLAN: Ms. Zhu is a pleasant 29 yo F with past medical history of hypertension and anemia requiring PRBC transfusion who recently noticed bleeding from her tooth over the weekend. She states it stopped then reoccurred on Saturday. She went to her dentist who did a tooth extraction yesterday and then her gums started bleeding. She states she noticed tiny petechial lesions all over her body and inside her mouth after the procedure. Upon arrival to the ED, her platelet count was 1. She received 2 jumbo platelet transfusion and platelet count increased to 4. Due to persistent critical thrombocytopenia, Hematology/Oncology has been consulted to assist with management. Of note, patient states she has had one other episode of epistaxis in 2018 when she required PRBC transfusion however was never told about her platelet count be ing low. She does c/o intermittent menorrhagia. She also states she was here in November 2017 for Influenza plus Pneumonia and CT chest showed multiple "reactive" lymph nodes. She did follow up with her PCP in December 2019 after that admission and has left axillary lymph node excision with biopsy which was negative for malignancy. Patient denies any other hematologic disorders or personal history of cancers. 1. Thrombocytopenia: Appears possible immune mediated. Does not appear coagulopathy, repeat INR normal, elevated d-dimer with elevated fibrinogen level, does not appear DIC. Acute hepatitis panel pending. CT abd/pelvis with no evidence of bleeding, did reveal mild hepatomegaly, normal spleen. Patient is s/p 2 jumbo platelets with minimal improvement in platelet count from 1 to 4. S/P high dose steroids and IVIG x 2 with improvement in platelet count . Continue on high dose solumedrol and IVIG third dose today, discussed with RN. Repeat CBC in am. Monitor very closely. 2. Petechial lesions: Likely secondary to #1 possible ITP. Should improve once platelets improve. Monitor for now. 3. Anemia: Likely acute on chronic secondary to gum bleeding. Anemia panel appears predominantly YANICK. Also noted elevated reticulocyte count, will obtain LDH and haptoglobin to rule out hemolysis. s/p iv iron infusions with improvemen t in H and H. Monitor closely. 4. Lymphadenopathy/hilar mass: Previous CT chest in November 2019 revealed [address] and hilar mass from infection, however, underlying malignancy could not be ruled out. Left axillary LN biopsy in December 2019 negative for malignancy per patient. CT C/A/P revealed bilateral axillary lymphadenopathy not ed again with interval excisional biopsy of one L axillary node as well as mild bilateral pelvic and inguinal adenopathy without significant change. Patient may benefit from PETCT scan which can be done outpatient. 5. Leukopenia: Uncertain etiology. Intermittent low counts after reviewing previous medical records. Will obtain peripheral smear to rule out any abnormal cells as well as acute hepatitis panel and anemia panel to rule out nutritional deficiency. Due to pancytopenia, patient may benefit from FISH/flow cytometry and possible bone marrow biopsy in the outpatient setting pending further workup. Monitor for now. 6. DVT proph: SCDs due to severe thrombocytopenia. Thank you for the consult. I will be available. Please call with questions.
[2020-05-15] VITALS (8 sets, daily range): BP systolic 110–128; BP diastolic 60–79
[2020-05-15] MEDS ORDERED: PANTOPRAZOLE SOD 40 MG TABEC PO ONE (07:30)
--- NOTE | 2020-05-15 07:31 | NUR ---
ASSUMED CARE. AAOX3. ACYANOTIC. SITTING UPRIGHT IN BED WATCHING TELEVISION. NO DISTRESS NOTED. CALL LIGHT IN REACH. SIDE RAILS UP X2. BED LOW AND LOCKED.
[2020-05-15 08:41] LABS: BASOPHILS % 0.1 % (0.0-1.0); HEMATOCRIT 26.3 % (34.2-44.1); HEMOGLOBIN 8.1 g/dL (12.0-16.0); LYMPHOCYTES # (AUTO) 2.4 (1.0-3.2); LYMPHOCYTES % 24.5 % (18.0-39.1); MEAN CORPUSCULAR HEMOGLOBIN 27.6 pg (28-32); MEAN CORPUSCULAR HGB CONC 30.8 g/dL (31-35); MEAN CORPUSCULAR VOLUME 89.8 fL (81-99); MONOCYTES # (AUTO) 0.6 (0.2-0.8); MONOCYTES % 6.1 % (4.4-11.3); NEUTROPHILS # (AUTO) 6.8 (2.1-6.9); NEUTROPHILS % 68.1 % (38.7-80.0); PLATELET COUNT 192 x10e3/uL (140-360); RED BLOOD COUNT 2.93 x10e6/uL (3.6-5.1); RED CELL DISTRIBUTION WIDTH 15.2 % (11.7-14.4)
[2020-05-15 08:58] LABS: ALANINE AMINOTRANSFERASE 32 IU/L (0-55); ALBUMIN 3.4 g/dL (3.5-5.0); ALBUMIN/GLOBULIN RATIO 0.4 (0.8-2.0); ALKALINE PHOSPHATASE 23 IU/L (40-150); ANION GAP 12.3 mmol/L (8-16); BLOOD UREA NITROGEN 23 mg/dL (7-26); BUN/CREATININE RATIO 21 (6-25); CALCIUM 8.2 mg/dL (8.4-10.2); CARBON DIOXIDE 19 mmol/L (22-29); CHLORIDE 104 mmol/L (98-107); CREATININE, SERUM 1.08 mg/dL (0.57-1.11); EST GLOMERULAR FILTRATION RATE > 60 ML/MIN (60-); GLUCOSE 121 mg/dL (74-118); POTASSIUM 4.3 mmol/L (3.5-5.1); SODIUM 131 mmol/L (136-145)
[2020-05-15] MEDS: METHYLPREDNISOLONE SOD SUCC 40 MG/ML VIAL 1ML IV SCH ×2 (09:31→20:22)
--- NOTE | 2020-05-15 09:52 | NUR ---
IM- progress note O/N see below REVIEW OF SYSTEMS: Denies any dizziness, chest pain, fever, chills, sweats, nausea, vomiting, diarrhea, headache, no vision changes; no focal limb weakness PHYSICAL EXAMINATION VITAL SIGNS: Have been reviewed. GENERAL: A tired-appearing woman resting in bed. HEENT: Anicteric. Dried blood on molars of right jaw CARDIOVASCULAR: Normal S1 and S2. LUNGS: Reduced BS ABDOMEN: mildly tender left pelvic region EXTREMITIES: No edema or calf tenderness. NEUROLOGICAL: Alert and oriented times 3. She moves all extremities. SKIN: Dry. PSYCHIATRIC: Normal affect. LABS: Reviewed. MEDICATIONS: Reviewed. ASSESSMENT: 29yoF Pancytopenia- hematology consult; platelet transfusions overnight; use steroids; will need BM biopsy Hx B/L axillary and Mediastinal LAD and Pelvic LAD- check CT chest/abd/pelvis; Had benign Bx in past; Had Oncological w-up in past. Severe Obesity- hba1c/lipids BMI 43.9 RA- contributory to pancytopenia. steroids; outpt mgmt. Prop: lovenox; pepcid dispo: f/u studies; check CBC later today; 9-4 counts improving; no more bleeding; BM bx 9-5 counts continue to improve; continue hematology w-up. CT chest/abd/pelvis shows diffuse LAD 9-6 blood counts improving; Stephen Crocker MD, PhD.
[2020-05-15] MEDS: DIPHENHYDRAMINE HCL INJ 50 MG/ML VIAL IV SCH (14:57)
[2020-05-15] MEDS: ACETAMINOPHEN 325 MG TAB PO SCH (14:58)
[2020-05-15] MEDS: IMMUNE GLOBULIN IV SCH (15:30)
--- NOTE | 2020-05-15 16:40 | NUR ---
HEMATOLOGY/ONCOLOGY CONSULTATION NOTE REFERRING PHYSICIAN: Dr. Stephen Crocker CONSULTING PHYSICIAN: Dr. Mary Lowry REASON FOR CONSULTATION: Thrombocytopenia, pancytopenia, bleeding CC: :Patient resting comfortably in bed, appears NAD. No specific complaints. REVIEW OF SYSTEMS: 14 point ROS negative unless otherwise stated in the HPI. PHYSICAL EXAM: Vital signs: Reviewed per MAR, afebrile General: NAD, morbid obesity HEENT: NT, AT; petechial lesions inside mouth Neck: Supple Cardiovascular: RRR Pulmonary: Decreased breath sounds bilaterally Abdomen: Soft, NTND, BS x 4 Musculoskeletal: Moves all Extremities: No cyanosis, no edema, petechial lesions to BUE/BLE Neurologic: Awake, alert Psychiatric: Cooperative CT C/A/P: IMPRESSION: 1. Bilateral axillary adenopathy is again noted, with interval excisional biopsy of one left axillary node. Subsegmental atelectasis is present bilaterally without acute or suspicious pulmonary findings. 2. Mild hepatomegaly without focal hepatic abnormality. Otherwise unremarkable abdomen. 3. Mild bilateral pelvic and inguinal adenopathy without significant change. ASSESSMENT/PLAN: Ms. Zhu is a pleasant 29 yo F with past medical history of hypertension and anemia requiring PRBC transfusion who recently noticed bleeding from her tooth over the weekend. She states it stopped then reoccurred on Saturday. She went to her dentist who did a tooth extraction yesterday and then her gums started bleeding. She states she noticed tiny petechial lesions all over her body and inside her mouth after the procedure. Upon arrival to the ED, her platelet count was 1. She received 2 jumbo platelet transfusion and platelet count increased to 4. Due to persistent critical thrombocytopenia, Hematology/Oncology has been consulted to assist with management. Of note, patient states she has had one other episode of epistaxis in 2018 when she required PRBC transfusion however was never told about her platelet count be ing low. She does c/o intermittent menorrhagia. She also states she was here in November 2017 for Influenza plus Pneumonia and CT chest showed multiple "reactive" lymph nodes. She did follow up with her PCP in December 2019 after that admission and has left axillary lymph node excision with biopsy which was negative for malignancy. Patient denies any other hematologic disorders or personal history of cancers. 1. Thrombocytopenia: Appears possible immune mediated. Does not appear coagulopathy, repeat INR normal, elevated d-dimer with elevated fibrinogen level, does not appear DIC. Acute hepatitis panel negative. CT abd/pelvis with no evidence of bleeding, did reveal mild hepatomegaly, normal spleen. Patient is s/p 2 jumbo platelets with minimal improvement in platelet count from 1 to 4. S/P high dose steroids and IVIG x 3 with improvement in platelet count . Plan to d/c IviG today and convert solumedrol to prednisone 40mg tomorrow and follow. Monitor very closely. 2. Petechial lesions: Likely secondary to #1 possible ITP. Monitor for now. 3. Anemia: Likely acute on chronic secondary to gum bleeding. Anemia panel appears predominantly YANICK. Also noted elevated reticulocyte count, will obtain L DH and haptoglobin to rule out hemolysis. Plan for iv iron infusions today with improvement in H and H. Monitor closely. 4. Lymphadenopathy/hilar mass: Previous CT chest in November [address] and hilar mass from infection, however, underlying malignancy could not be ruled out. Left axillary LN biopsy in December 2019 negative for malignancy per patient. CT C/A/P revealed bilateral axillary lymphadenopathy not ed again with interval excisional biopsy of one L axillary node as well as mild bilateral pelvic and inguinal adenopathy without significant change. Patient may benefit from PETCT scan which can be done outpatient. 5. Leukopenia: Uncertain etiology. Intermittent low counts after reviewing previous medical records. Will obtain peripheral smear to rule out any abnormal cells as well as acute hepatitis panel and anemia panel to rule out nutritional deficiency. Due to pancytopenia, patient may benefit from FISH/flow cytometry and possible bone marrow biopsy in the outpatient setting pending further workup. Monitor for now. 6. DVT proph: SCDs . Thank you for the consult. I will be available. Please call with questions.
[2020-05-16] VITALS: BP 131/75
[2020-05-16 04:00] VITALS: BP 126/70
[2020-05-16 06:08] LABS: BASOPHILS % 0.2 % (0.0-1.0); HEMATOCRIT 28.7 % (34.2-44.1); HEMOGLOBIN 8.9 g/dL (12.0-16.0); LYMPHOCYTES % 18.6 % (18.0-39.1); MEAN CORPUSCULAR HEMOGLOBIN 27.8 pg (28-32); MEAN CORPUSCULAR VOLUME 89.7 fL (81-99); MONOCYTES # (AUTO) 0.6 (0.2-0.8); MONOCYTES % 5.6 % (4.4-11.3); NEUTROPHILS # (AUTO) 8.1 (2.1-6.9); NEUTROPHILS % 74.3 % (38.7-80.0); PLATELET COUNT 261 x10e3/uL (140-360); RED CELL DISTRIBUTION WIDTH 15.1 % (11.7-14.4)
[2020-05-16 06:31] LABS: ALANINE AMINOTRANSFERASE 38 IU/L (0-55); ALBUMIN 3.5 g/dL (3.5-5.0); ALBUMIN/GLOBULIN RATIO 0.4 (0.8-2.0); ALKALINE PHOSPHATASE 24 IU/L (40-150); ANION GAP 11.5 mmol/L (8-16); BLOOD UREA NITROGEN 25 mg/dL (7-26); BUN/CREATININE RATIO 23 (6-25); CALCIUM 8.3 mg/dL (8.4-10.2); CARBON DIOXIDE 19 mmol/L (22-29); CHLORIDE 103 mmol/L (98-107); CREATININE, SERUM 1.11 mg/dL (0.57-1.11); EST GLOMERULAR FILTRATION RATE > 60 ML/MIN (60-); GLUCOSE 133 mg/dL (74-118); POTASSIUM 4.5 mmol/L (3.5-5.1); SODIUM 129 mmol/L (136-145)
--- NOTE | 2020-05-16 07:09 | NUR ---
Bedside report and walking rounds completed with oncoming nurse. Patient in bed with call light within reach. No issues or concerns noted.
[2020-05-16 08:02] VITALS: BP 117/60
[2020-05-16 09:00] VITALS: BP 117/60
[2020-05-16] MEDS: SODIUM FERRIC GLUCONATE COMPLX 125 MG in SODIUM CHLORIDE 0.9% 100 ML 100 ML IV SCH ×2 (09:00→10:00)
[2020-05-16] MEDS ORDERED: PREDNISONE 20 MG TAB PO ONE (09:00)
--- NOTE | 2020-05-16 10:53 | NUR ---
D.C Summary Principal Dx: Pancytopenia- hematology consult; platelet transfusions overnight; use steroids; will need BM biopsy; IVIG effective Hx B/L axillary and Mediastinal LAD and Pelvic LAD- check CT chest/abd/pelvis; Had benign Bx in past; Had Oncological w-up in past. Hyponatremia- mild; asymptomatic; Secondary Dx: Severe Obesity- hba1c/lipids BMI 43.9 RA- contributory to pancytopenia. steroids; outpt mgmt. Prop: lovenox; pepcid dispo: f/u studies; check CBC later today; 9-4 counts improving; no more bleeding; BM bx 9-5 counts continue to improve; continue hematology w-up. CT chest/abd/pelvis shows diffuse LAD 9-6 blood counts improving; 9-7 better with IVIG; d/c home when cleared by hematology; d/c home stable d/c>35mins f/u pcp 2 days and Hematology 1 week Stephen Crocker MD, PhD.
[2020-05-16] MEDS ORDERED: FERROUS SULFAT325 MG PO (10:55)
--- NOTE | 2020-05-16 11:00 | NUR ---
ASSESSMENT: Spiritual concern Pt hopeful to return home. Pt states she has a 13 y/o son and 6 y/o daughter both of whom will "start school tomorrow." Pt anxious to help children get ready for school. Intervention: Provided empathic/supportive listening. Reminded pt of availability of public health educator services. Outcome: Pt expressed appreciation for support. Will continue to follow as able. VENUS [employer] Spiritual Care Department O: [phone]
[2020-05-16 11:14] VITALS: BP 119/73
[2020-05-16] MEDS ORDERED: PANTOPRAZOLE SOD 40 MG TABEC PO ONE (12:00)
--- NOTE | 2020-05-16 13:20 | NUR ---
PT DISCHARGED HOME VIA PRIVATE VEHICLE. PERIPHERAL IV WAS DISCONTINUED, CATHETER TIP INTACT WITHOUT RESISTANCE. DRY DRESSING APPLIED. PATIENT RECEIVED DISCHARGE SUMMARY AND EDUCATION LEAFLETS. PT VERBALIZED UNDERSTANDING.
--- NOTE | 2020-05-16 18:19 | NUR ---
HEMATOLOGY/ONCOLOGY CONSULTATION NOTE REFERRING PHYSICIAN: Dr. Stephen Crocker CONSULTING PHYSICIAN: Dr. Mary Lowry REASON FOR CONSULTATION: Thrombocytopenia, pancytopenia, bleeding CC: :Evenst noted.No more bleeding. REVIEW OF SYSTEMS: 14 point ROS negative unless otherwise stated in the HPI. PHYSICAL EXAM: Vital signs: Reviewed per MAR, afebrile General: NAD, morbid obesity HEENT: NT, AT; petechial lesions inside mouth Neck: Supple Cardiovascular: RRR Pulmonary: Decreased breath sounds bilaterally Abdomen: Soft, NTND, BS x 4 Musculoskeletal: Moves all Extremities: No cyanosis, no edema, petechial lesions to BUE/BLE Neurologic: Awake, alert Psychiatric: Cooperative CT C/A/P: IMPRESSION: 1. Bilateral axillary adenopathy is again noted, with interval excisional biopsy of one left axillary node. Subsegmental atelectasis is present bilaterally without acute or suspicious pulmonary findings. 2. Mild hepatomegaly without focal hepatic abnormality. Otherwise unremarkable abdomen. 3. Mild bilateral pelvic and inguinal adenopathy without significant change. ASSESSMENT/PLAN: Ms. Zhu is a pleasant 29 yo F with past medical history of hypertension and anemia requiring PRBC transfusion who recently noticed bleeding from her tooth over the weekend. She states it stopped then reoccurred on Saturday. She went to her dentist who did a tooth extraction yesterday and then her gums started bleeding. She states she noticed tiny petechial lesions all over her body and inside her mouth after the procedure. Upon arrival to the ED, her platelet count was 1. She received 2 jumbo platelet transfusion and platelet count increased to 4. Due to persistent critical thrombocytopenia, Hematology/Oncology has been consulted to assist with management. Of note, patient states she has had one other episode of epistaxis in 2018 when she required PRBC transfusion however was never told about her platelet count be ing low. She does c/o intermittent menorrhagia. She also states she was here in November 2017 for Influenza plus Pneumonia and CT chest showed multiple "reactive" lymph nodes. She did follow up with her PCP in December 2019 after that admission and has left axillary lymph node excision with biopsy which was negative for malignancy. Patient denies any other hematologic disorders or personal history of cancers. 1. Thrombocytopenia: Appears possible immune mediated. Does not appear coagulopathy, repeat INR normal, elevated d-dimer with elevated fibrinogen level, does not appear DIC. Acute hepatitis panel negative. CT abd/pelvis with no evidence of bleeding, did reveal mild hepatomegaly, normal spleen. Patient is s/p 2 jumbo platelets with minimal improvement in platelet count from 1 to 4. S/P high dose steroids and IVIG x 4 with improvement in platelet count . CHARLES pending .Patient transitioned to prednisone 40mg and can be discharged on prednisone as platelet count back upto normal. 2. Petechial lesions: Likely secondary to #1 possible ITP. Monitor for now. 3. Anemia: Likely acute on chronic secondary to gum bleeding. Anemia panel appears predominantly YANICK. Also noted elevated reticulocyte count, will obtain L DH and haptoglobin to rule out hemolysis. s/p iv iron infusions today with improvement in H and H. Monitor closely. 4. Lymphadenopathy/hilar mass: Previous CT chest in November [address] revealed [address] and hilar mass from infection, however, underlying malignancy could not be ruled out. Left axillary LN biopsy in December 2019 negative for malignancy per patient. CT C/A/P revealed bilateral axillary lymphadenopathy not ed again with interval excisional biopsy of one L axillary node as well as mild bilateral pelvic and inguinal adenopathy without significant change. Patient may benefit from PETCT scan which can be done outpatient. 5. Leukopenia: Uncertain etiology. Intermittent low counts after reviewing previous medical records. Will obtain peripheral smear to rule out any abnormal cells as well as acute hepatitis panel and anemia panel to rule out nutritional deficiency. Due to pancytopenia, patient may benefit from FISH/flow cytometry and possible bone marrow biopsy in the outpatient setting pending further workup. Monitor for now. 6. DVT proph: SCDs .
--- NOTE | 2020-05-24 16:50 | NUR ---
Ms. Zhu is a pleasant 29 yo F with past medical history of hypertension and anemia requiring PRBC transfusion who recently was admitted with platelets of 1 and treated with IvIG and steroids for ITP and responded very well.She however presented to the clinic for a follow up visit today and had been off steroids for 1 week now.She had a stat CBC revealing platelets of 1 which was the main reason she was sent in to the ER today. Presently, patient is resting comfortably in bed. She does note to have petechial lesions. Gum bleeding has stopped. She denies dyspnea, chest pain, abdominal pain, vaginal bleeding, dizziness.She does complain of a headache. ALLERGIES: Levaquin PAST MEDICAL HISTORY: 1. Hypertension 2. Anemia PAST SURGICAL HISTORY: 1. Left axillary lymph node excisional biopsy 2. section 3. Tooth extraction PAST FAMILY HISTORY: Father side cancer (uncertain). otherwise no hematologic disorders or cancers SOCIAL HISTORY: Denies tobacco use, admits to occasional alcohol use, denies illicit drug use REVIEW OF SYSTEMS: 14 point ROS negative unless otherwise stated in the HPI. PHYSICAL EXAM: Vital signs: Reviewed per MAR, afebrile General: NAD, morbid obesity HEENT: NT, AT; petechial lesions inside mouth Neck: Supple Cardiovascular: RRR Pulmonary: Decreased breath sounds bilaterally Abdomen: Soft, NTND, BS x 4 Musculoskeletal: Moves all Extremities: No cyanosis, no edema, petechial lesions to BUE/BLE Neurologic: Awake, alert Psychiatric: Cooperative ASSESSMENT/PLAN: Ms. Zhu is a pleasant 29 yo F with past medical history of hypertension and anemia requiring PRBC transfusion who recently was admitted with platelets of 1 and treated with IvIG and steroids for ITP and responded very well.She however presented to the clinic for a follow up visit today and had been off steroids for 1 week now.She had a stat CBC revealing platelets of 1 which was the main reason she was sent in to the ER today. 1. Thrombocytopenia: Appears possible immune mediated. Plan for IviG with steroids.Patient will need to be discharged home on Prednisone 40mg once platelet count recovers. 2. Anemia: Likely acute on chronic secondary to gum bleeding. Obtain baseline anemia panel for now and follow up results. Monitor closely. 4. Lymphadenopathy/hilar mass: Previous CT chest in November [address] and hilar mass from infection, however, underlying malignancy could not be ruled out. Left axillary LN biopsy in December 2019 negative for malignancy [address] patient. CT C/A/P pending, follow up results. Patient may benefit from PETCT scan which can be done outpatient. 5. Leukopenia: Uncertain etiology. Intermittent low counts after reviewing previous medical records. Will obtain peripheral smear to rule out any abnormal cells as well as acute hepatitis panel and anemia panel to rule out nutritional deficiency. Due to pancytopenia, patient may benefit from FISH/flow cytometry and possible bone marrow biopsy in the outpatient setting pending further workup. Monitor for now. 6. DVT proph: SCDs due to severe thrombocytopenia.
== END 2020-05-16 13:14 | disposition home or self-care (01) | DRG 813 ==
LOC: ER 15:33 → ERHOLD 16:21 → MED/SURG2 18:14
PROVIDERS: ADMIT Internal Medicine; ATTEND Internal Medicine
PROC: 30233R1 Transfusion of Nonautologous Platelets into Peripheral Vein, Percutaneous Approach (ICD-10-PCS; principal; 2020-05-11)
DX: D69.3 Immune thrombocytopenic purpura (principal); D61.818 Other pancytopenia; Z68.41 Body mass index [BMI] 40.0-44.9, adult; I10 Essential (primary) hypertension; E66.01 Morbid (severe) obesity due to excess calories; M06.9 Rheumatoid arthritis, unspecified; D64.9 Anemia, unspecified; R59.0 Localized enlarged lymph nodes; Z80.9 Family history of malignant neoplasm, unspecified; Z88.1 Allergy status to other antibiotic agents; D72.819 Decreased white blood cell count, unspecified; K06.8 Other specified disorders of gingiva and edentulous alveolar ridge; Z11.59 Encounter for screening for other viral diseases; Z79.52 Long term (current) use of systemic steroids
CPT/HCPCS: 36415; 71260; 74177; 80048; 80053; 80061; 80074; 81001; 82607; 82728; 82746; 83010; 83036; 83540; 83615; 84466; 84702; 85025; 85045; 85379; 85384; 85610; 85730; 86039; 86850; 86870; 86880; 86900; 86905; 86920; 93005; 99001; 99284; J1200; J2270; J2916; J2920; J7050; J7512; P9034; Q9967; U0002

== ENCOUNTER 2020-05-24 16:14 | Inpatient (IN) | payer BC, OTHER ==
[~2020-05-24] VITALS: Ht 167.6 cm; Wt 122.9 kg
[2020-05-24] MEDS ORDERED: METHYLPREDNISOLONE SOD SUCC 125 MG/2ML VIAL IV STA (16:34)
[2020-05-24] MEDS ORDERED: ONDANSETRON HCL INJ 2MG/ML 2ML 2 MG/ML VIAL IV PRN (16:45)
[2020-05-24 16:47] LABS: BASOPHILS % 0.3 % (0.0-1.0); LYMPHOCYTES # (AUTO) 1.2 (1.0-3.2); LYMPHOCYTES % 32.1 % (18.0-39.1); MEAN CORPUSCULAR HEMOGLOBIN 28.8 pg (28-32); MEAN CORPUSCULAR HGB CONC 31.6 g/dL (31-35); MONOCYTES # (AUTO) 0.2 (0.2-0.8); MONOCYTES % 6.1 % (4.4-11.3); NEUTROPHILS # (AUTO) 2.3 (2.1-6.9); RED BLOOD COUNT 2.33 x10e6/uL (3.6-5.1)
[2020-05-24] MEDS ORDERED: SODIUM CHLORIDE 0.9% 1000ML 1,000 ML IV STA (16:47)
[2020-05-24 16:49] LABS: HEMATOCRIT 21.2 % (34.2-44.1)
[2020-05-24 16:51] LABS: HEMOGLOBIN 6.7 g/dL (12.0-16.0); PLATELET COUNT 4 x10e3/uL (140-360)
--- OUTSIDE RECORDS SUMMARY | 2020-05-24 16:54 | XMS REPORT | Continuity of Care Document ---
Author Author [facility] t Organization [facility] t Address [address] [place] [address] Phone Unavailable Care Team Providers Care Beater Dumper Name Role Phone KATE MACHADO, MD NOVAK PCP STEPHEN LOVE Attphys Unavailable ERIC VAZQUEZ Attphys Unavailable Elvis RICH Attphys Unavailable MARY MCKAY Attphys Unavailable Mónica COBURN Attphys Unavailable STEPHEN LOVE Admphys Unavailable ELIAS DOSS Admphys Unavailable Payers Payer Name Policy Type Policy Number Effective Date Expiration Date [facility] [id number] 2018 00:00:00 [facility] Problems Condition Name Condition Details Condition Category Status Onset Date Resolution Date Last Treatment Date Treating Clinician Comments Source Torsion of ovary Ovarian torsion Problem Active [facility] Spontaneous Problem Active [facility] Thrombocytopenia Problem Active [facility] Allergies, Adverse Reactions, Alerts Allergy Name Allergy Type Status Severity Reaction(s) Onset Date Inacti ve Date Treating Clinician Comments Source levofloxacin DA Active U 2019-12-11 00:00:00 [facility] Levofloxacin Allergy to substance Active Severe THROAT SWELLS 2018-04-28 00:00:00 [facility] levofloxacin DA Active MO 2018-01-04 00:00:00 [facility] Social History Social Habit Start Date Stop Date Quantity Comments Source Sex Assigned At 1990 00:00:00 1990 00:00:00 Female [facility] Medications Ordered Medication Name Filled Medication Name Start Date Stop Da te Current Medication? Ordering Clinician Indication Dosage Frequency Signature (SIG) Comments Components Source Ferrous Sulfate Ferrous Sulfate 2020-05-16 10:55:00 Yes 325 Every 12 Hours [facility] Tramadol Hcl (Ultram) 50 Mg TABLET Tramadol Hcl (Ultram) 50 Mg TABLET 2020-02-25 12:46:00 2020-05-11 00:00:00 No 50 Every 6 Hours as needed for Abdominal Pain [facility] Labetalol Hcl Labetalol Hcl 2018-05-03 06:43:00 Yes 20 [address] [facility] Famotidine (Pepcid) 20 Mg TABLET Famotidine (Pepcid) 20 Mg T [facility] 2018-05-03 06:43:00 2020-05-11 00:00:00 No 20 Twice A Day [facility] Ferrous Sulfate Ferrous Sulfate 2018-05-03 06:43:00 2020-05-11 00:00:00 No 325 Twice Daily With Meals [facility] Nifedipine (Nifedipine Er) 30 Mg TAB.ER.24 Nifedipine (Nifedipine Er) 30 Mg TAB.ER.24 2018-05-03 06:43:00 2020-05-11 00:00:00 No 60 Every 12 Hours [facility] Ondansetron (Zofran Odt) 4 Mg TAB.RAPDIS Ondansetron ( Zofran Odt) 4 Mg TAB.RAPDIS 2018-05-03 06:43:00 2020-05-11 00:00:00 No 4 Q4-6H Prn [facility] Nifedipine (Nifedipine Er) 30 Mg TAB.ER.24 Nifedipine (Nifedipine Er) 30 Mg TAB.ER.24 Yes 90 Daily [facility] Acetaminophen With Codeine (Tylenol With Codeine #3 Ta blet) 1 Each TABLET Acetaminophen With Codeine (Tylenol With Codeine #3 Tablet) 1 Each TABLET 2020-05-11 00:00:00 No 300 As Needed [facility] Azithromycin (Z-Feroz) 250 Mg TABLET Azithromycin (Z-Feroz) 250 Mg T ABLET 2020-05-11 00:00:00 No 250 Use As Directed [facility] Cefdinir Cefdinir 2020-05-11 00:00:00 No 300 Daily [facility] Vital Signs Vital Name Observation Time Observation Value Comments Source Body Temperature 2020-05-16 11:14:00 99.0 [degF] [facility] BMI (Body Mass Index) 2020-05-14 00:57:00 43.9 kg/m2 [facility] Weight 2020-05-11 20:28:00 272 [lb_av] [facility] Weight 2020-02-25 09:14:00 268 [lb_av] [facility] BMI (Body Mass Index) 2020-02-25 09:14:00 42.0 kg/m2 [facility] Body Temperature 2019-12-02 17:10:00 98.4 [degF] [facility] Procedures Procedure Date / Time Performed Performing Clinician [facility] e Computed tomography of chest with contrast 2020-05-12 00:00:00 [facility] Computed tomography of abdomen and pelvis with contrast 00:00:00 [facility] Computed tomography of chest with contrast 2019-11-27 00:00:00 ERCI ORTIZ [facility] X-ray of chest, single view 2019-11-24 00:00:00 PETRA RICH [facility] Complete non-obstetrical ultrasound of pelvis 2019-07-22 00: 00:00 JOSE MANUEL COBURN [facility] Computed tomography of abdomen and pelvis with contrast 2018 00:00:00 JOSE MANUEL COBURN [facility] US transvaginal 2019-07-22 00:00:00 JOSE MANUEL COBURN [facility] Limited Doppler ultrasound of vessels of pelvis 2019-07-22 0 0:00:00 MINERALJOSE MANUEL [facility] LAPAROSCOPY REMOVE ADNEXA 2019-07-22 00:00:00 [facility] Plan of Care Planned Activity Planned Date Details Comments Source Instructions Hypertension [facility] Instructions Thrombocytopenia [facility] Encounters Start Date/Time End Date/Time Encounter Type Admission Type Attendi [facility] Care Department Encounter ID Source 2020-05-11 16:21:00 2020-05-16 13:14:00 Discharged Inpatient 1 STEPHEN LOVE [facility] [id number] [facility] 2020-02-25 09:11:00 2020-02-25 13:00:00 Departed Emergency Room [facility] [id number] [facility] dical [place] 2019-11-28 07:55:00 2019-12-02 19:20:00 Discharged Inpatient 1 VAZQUEZ ERIC [facility] [id number] [facility] 2019-11-24 20:23:00 2019-11-24 23:34:00 Departed Emergency Room 1 JONO RICH [facility] [id number] [facility] 2019-11-23 18:09:00 2019-11-23 21:38:00 Departed Emergency Room 1 MARY MCKAY [facility] [id number] [facility] 2019-07-22 10:13:00 2019-07-24 09:09:00 Discharged Inpatient (obs) 1 JOSE MANUEL COBURN [facility] [id number] [facility] 2019-02-09 18:52:00 2019-02-09 23:23:00 Departed Emergency Room 1 JOSE MANUEL COBURN [facility] [id number] [facility] 2018-12-14 23:09:00 2018-12-15 01:02:00 Departed Emergency Room [facility] [id number] [facility] 2018-07-29 10:29:00 2018-07-29 15:15:00 Departed Emergency Room [facility] [id number] [facility] 2018-04-30 15:59:00 2018-05-03 12:47:00 Discharged Inpatient [facility] [id number] [facility] Results Test Description Test Time Test Comments Results Result Comments Source Blood leukocytes automated count (number/volume) 2020-05-16 05:20:00 Test Item White Blood Count (test code = 6690-2) 10.84 4.8-10.8 [facility] erythrocytes automated count (number/volume)2020-05-16 05:20:00* Test Item Value Reference Range Interpretation Comments Red Blood Count (test code = 789-8) 3.20 3.6-5.1 [facility] hemoglobin measurement (moles/volume)2020-05-16 05:20:00* Test Item Value Reference Range Interpretation Comments Hemoglobin (test code = 88658-5) 8.9 12.0-16.0 [facility] Area[facility] blood hematocrit (volume fraction)2020-05-16 05:20:00* Test Item Value Reference Range Interpretation Comments Hematocrit (test code = 4544-3) 28.7 34.2-44.1 [facility] Area[facility] erythrocyte mean corpuscular dgcpks9308-62-62 05:20:00* Test Item Value Reference Range Interpretation Comments Mean Corpuscular Volume (test code = 787-2) 89.7 81-99 [facility] Area[facility] erythrocyte mean corpuscular hemoglobin (mass per erythrocyte)2020-05-16 05:20:00* Test Item Value Reference Range Interpretation Comments Mean Corpuscular Hemoglobin (test code = 785-6) 27.8 28-32 [facility] AreaAutom[facility] erythrocyte mean corpuscular hemoglobin concentration measurement (mass/volume)2020-05-16 05:20:00* Test Item Value Reference Range Interpretation Comments Mean Corpuscular Hemoglobin Concent (test code = 786-4) 31.0 31-35 [facility] AreaRDW [id number]-Wvk4302-86-07 05:20:00* Test Item Value Reference Range Interpretation Comments Red Cell Distribution Width (test code = 61110-0) 15.1 11.7 -14.4 [facility] Area[facility] blood platelet count (count/volume)2020-05-16 05:20:00* Test Item Value Reference Range Interpretation Comments Platelet Count (test code = 777-3) 261 140-360 [facility] AreaAutcape fear/harnett healthed blood segmented neutrophil count as percentage of total zeaeawdklc3628-52-51 05:20:00* Test Item Value Reference Range Interpretation Comments Neutrophils (%) (Auto) (test code = 85163-6) 74.3 38.7-80.0 [facility] AreaAutomated blood lymphocyte count as percentage ot total kopagzjglc1767-74-40 05:20:00* Test Item Value Reference Range Interpretation Comments Lymphocytes (%) (Auto) (test code = 736-9) 18.6 18.0-39.1 [facility] AreaAutomated blood monocyte count as percentage of total dbyzyqezgl3257-73-40 05:20:00* Test Item Value Reference Range Interpretation Comments Monocytes (%) (Auto) (test code = 5905-5) 5.6 4.4-11.3 [facility] AreaAutom[facility] blood eosinophil count as percentage of total arqtyrzsjo1000-10-70 05:20:00* Test Item Value Reference Range Interpretation Comments Eosinophils (%) (Auto) (test code = 713-8) 0.0 0.0-6.0 [facility] AreaAutom[facility] blood basophil count as percentage of total ahbudgzkrt2192-81-84 05:20:00* Test Item Value Reference Range Interpretation Comments Basophils (%) (Auto) (test code = 706-2) 0.2 0.0-1.0 [facility] AreaFluoroscopic procedure less than one hour ijxnsdnm6236-41-87 05:20:00* Test Item Value Reference Range Interpretation Comments IM GRANULOCYTES % (test code = IM GRANULOCYTES %) 1.3 0.0- 1.0 [facility] AreaAutom[facility] blood neutrophil count 2020-05-16 05:20:00* Test Item Value Reference Range Interpretation Comments Neutrophils # (Auto) (test code = 751-8) 8.1 2.1-6.9 [facility] Area[facility] lymphocytes count (number/volume) 2020-05-16 05:20:00* Test Item Value Reference Range Interpretation Comments Lymphocytes # (Auto) (test code = 47123-7) 2.0 1.0-3.2 [facility]Bl[facility] monocytes automated count (number/volume)2020-05-16 05:20:00* Test Item Value Reference Range Interpretation Comments Monocytes # (Auto) (test code = 742-7) 0.6 0.2-0.8 [facility] AreaAutomated blood eosinophil count 2020-05-16 05:20:00* Test Item Value Reference Range Interpretation Comments Eosinophils # (Auto) (test code = 711-2) 0.0 0.0-0.4 [facility] AreaAutomated blood basophil count (count/volume)2020-05-16 05:20:00* Test Item Value Reference Range Interpretation Comments Basophils # (Auto) (test code = 704-7) 0.0 0.0-0.1 [facility] AreaFluoroscopic procedure less than one hour ocidyham2999-36-44 05:20:00* Test Item Value Reference Range Interpretation Comments Absolute Immature Granulocyte (auto (dana t code = Absolute Immature Granulocyte (auto) 0.14 0-0.1 [facility]um or plasma sodium measurement (moles/volume)2020-05-16 05:20:00* Test Item Value Reference Range Interpretation Comments Sodium Level (test code = 2951-2) 129 136-145 [facility] Cluberum or plasma potassium measurement (moles/volume)2020-05-16 05:20:00* Test Item Value Reference Range Interpretation Comments Potassium Level (test code = 2823-3) 4.5 3.5-5.1 [facility] Cluberum or plasma chloride measurement (moles/volume)2020-05-16 05:20:00* Test Item Value Reference Range Interpretation Comments Chloride Level (test code = 2075-0) 103 98-107 [facility] Cluberum or plasma carbon dioxide, total measurement (moles/volume)2020-05-16 05:20:00* Test Item Value Reference Range Interpretation Comments Carbon Dioxide Level (test code = 2028-9) 19 22-29 [facility] Cluberum or plasma anion eqt8391-60-32 05:20:00* Test Item Value Reference Range Interpretation Comments Anion Gap (test code = 85997-1) 11.5 8-16 [facility] Cluberum or plasma urea nitrogen measurement (mass/volume)2020-05-16 05:20:00* Test Item Value Reference Range Interpretation Comments Blood Urea Nitrogen (test code = 3094-0) 25 7-26 [facility] Cluberum or plasma creatinine measurement (mass/volume)2020-05-16 05:20:00* Test Item Value Reference Range Interpretation Comments Creatinine (test code = 2160-0) 1.11 0.57-1.11 [facility] Cluberum or plasma urea nitrogen/creatinine mass jqhyg4698-02-70 05:20:00* Test Item Value Reference Range Interpretation Comments BUN/Creatinine Ratio (test code = 3097-3) 23 6-25 [facility] AreaEstimated glomerular filtration rate (GFR) vdbznvwgzbgkb8802-93-40 05:20:00* Test Item Value Reference Range Interpretation Comments Estimat Glomerular Filtration Rate (test code = 648210676) > 60 >60 Ranges were taken from the National Kidney Disease Education Program and the [facility] literature.Reference ranges:60 or greater: Zfpozk03-45 ( for 3 consecutive months): Chronic kidney disease 15 or less: Kidney failureCorpus Christi Medical Center Bay AreaGlucose qhoyfgffpui0999-63-65 05:20:00* Test Item Value Reference Range Interpretation Comments Glucose Level (test code = IPW5116) 133 74-118 [facility] Cluberum or plasma calcium measurement (mass/volume)2020-05-16 05:20:00* Test Item Value Reference Range Interpretation Comments Calcium Level (test code = 39380-0) 8.3 8.4-10.2 [facility] Cluberum or plasma total bilirubin measurement (mass/volume)2020-05-16 05:20:00* Test Item Value Reference Range Interpretation Comments Total Bilirubin (test code = 1975-2) 0.3 0.2-1.2 [facility] AreaFluoroscopic procedure less than one hour qkbszckl9616-25-49 05:20:00* Test Item Value Reference Range Interpretation Comments Aspartate Amino Transf (AST/SGOT) (test code = Aspartate Amino Transf (AST/SGOT)) 32 5-34 [facility] Cluberum or plasma alanine aminotransferase measurement (enzymatic activity/volume)2020-05-16 05:20:00* Test Item Value Reference Range Interpretation Comments Alanine Aminotransferase (ALT/SGPT) (test code = 1742-6) 38 0-55 [facility] Cluberum or plasma protein measurement (mass/volume)2020-05-16 05:20:00* Test Item Value Reference Range Interpretation Comments Total Protein (test code = 2885-2) 11.4 6.5-8.1 [facility] Cluberum or plasma albumin measurement (mass/volume)2020-05-16 05:20:00* Test Item Value Reference Range Interpretation Comments Albumin (test code = 1751-7) 3.5 3.5-5.0 [facility] AreaPlasma globulin measurement (mass/volume) 2020-05-16 05:20:00* Test Item Value Reference Range Interpretation Comments Globulin (test code = 18799-9) 7.9 2.3-3.5 [facility] Cluberum or plasma albumin/globulin mass mqvcf6526-30-12 05:20:00* Test Item Value Reference Range Interpretation Comments Albumin/Globulin Ratio (test code = 1759-0) 0.4 0.8-2.0 [facility] Cluberum or plasma alkaline phosphatase measurement (enzymatic activity/volume)2020-05-16 05:20:00* Test Item Value Reference Range Interpretation Comments Alkaline Phosphatase (test code = 6768-6) 24 40-150 [facility] Cluberum or plasma lactate dehydrogenase measurement (enzymatic activity/volume)2020-05-14 05:07:00* Test Item Value Reference Range Interpretation Comments Lactate Dehydrogenase (test code = 023501351) 362 125-220 [facility] AreaFluoroscopic procedure less than one hour potsvhxh8463-85-73 03:10:00* Test Item Value Reference Range Interpretation Comments Differential Total Cells Counted (test code = South tial Total Cells Counted) 100 [facility] AreaManual blood neutrophils/100 leukocytes 2020-05-13 03:10:00* Test Item Value Reference Range Interpretation Comments Neutrophils % (Manual) (test code = 05586-6) 66 40-74 [facility] blood lymphocytes/100 leukocytes 2020-05-13 03:10:00* Test Item Value Reference Range Interpretation Comments Lymphocytes % (Manual) (test code = 737-7) 26 19-48 [facility] blood monocytes/100 leukocytes 2020-05-13 03:10:00* Test Item Value Reference Range Interpretation Comments Monocytes % (Manual) (test code = 744-3) 8 3.4-9.0 [facility] AreaBlood platelets count by estimate (number/volume)2020-05-13 03:10:00* Test Item Value Reference Range Interpretation Comments Platelet Estimate (test code = 98813-1) MARKEDLY DECREASED [facility] AreaPlatelet iyliwgfyqu5306-22-23 03:10:00* Test Item Value Reference Range Interpretation Comments Platelet Morphology Comment (test code = 49132-9) FEW LARGE [facility] AreaBlood hypochromia detection by light ybhapmiufw3496-34-08 03:10:00* Test Item Value Reference Range Interpretation Comments Hypochromasia (test code = 728-6) SLIGHT [facility] anisocytosis detection by light rbmnhpekbv0905-35-42 03:10:00* Test Item Value Reference Range Interpretation Comments Anisocytosis (test code = 702-1) SLIGHT [facility] ckoyruyvfu7614-57-74 03:10:00* Test Item Value Reference Range Interpretation Comments Red Cell Morphology Comment (test code = 6742-1) NORMAL [facility] AreaCT CHEST [id number] 11:09:00 [facility] [address] [address] Patient Name: CHRISTINE OTTO MR #: [id number] : Age/Sex: 29/F Req #: [id number] Adm Physician: STEPHEN LOVE MD Ordered by: STEPHEN LOVE MD Report #: [id number] Location: MED/SURG2 Room/Bed: [facility] Procedure: [id number] CT/CT CHEST W Exam Date: 05/12/20 Exam Time: 1032 REPORT STATUS: Signed CT of the ches t, abdomen, and pelvis, with contrast, 05/12/2020. History: Weakne ss, petechia. Comparison: CT chest 11/27/2019. CT abdomen and pelvis 019. Technique: Technique: Multidetector CT scanning of the chest, abdomen, and pelvis was performed from the level of the lung apices to the inferior pu bic rami after intravenous and oral administration of contrast. Coronal and sagittal multiplanar reformations were obtained. RADIATION DOSE: To marquis DLP: 1013 mGy*cm Dose modulation, iterative reconstruction, and/or we ight based adjustment of the mA/kV was utilized to reduce the radiation dose t o as low as reasonably achievable. Discussion: CHEST: The atria, jacquelyn tricles, aorta, and main pulmonary artery are normal in size. The thyroid is u nremarkable. The thyroid is unremarkable. Bilateral axillary adenopathy is unc hanged except for resection of one left maxillary node, with surgical clips no w present. There is no evidence of mediastinal adenopathy. There is bibasilar and lingular subsegmental atelectasis. There is no evidence of consolidation, mass, or pleural effusion. ABDOMEN: The liver is mildly enlarged measurin g 17 cm in length, but there is no focal hepatic abnormality. The gallbladder, biliary tree, spleen, pancreas, adrenal glands, and kidneys are normal. The h epatic vein, portal vein, and splenic vein are patent. The abdominal aorta is within normal limits for size. Evaluation of bowel is limited without oral co ntrast. There is no bowel dilatation. Scattered subcentimeter retroperitoneal nodes are present, nonspecific. There is no evidence of adenopathy or free fl uid. PELVIS: The bladder, uterus, and adnexa are unremarkable. There is no evidence of free fluid. Mildly enlarged bilateral inguinal and external and internal iliac lymph nodes are present measuring up to 1.3 cm bilaterally. BONES AND SOFT TISSUES: No acute abnormality. IMPRESSION: 1. Elmo ateral axillary adenopathy is again noted, with interval excisional biopsy of one left axillary node. Subsegmental atelectasis is present bilaterally withou t acute or suspicious pulmonary findings. 2. Mild hepatomegaly without focal h epatic abnormality. Otherwise unremarkable abdomen. 3. Mild bilateral pelvic and inguinal adenopathy without significant change. Signed by: Eric cabral on 05/12/2020 11:31 AM Dictated By: ERIC HURST MD Electronically Sig monie By: ERIC HURST MD on 05/12/20 1131 Transcribed By: IONA on 05/12/20 1 131 COPY TO: STEPHEN LOVE MD CT ABDOMEN/PELVIS [id number] 11:09:00 [address] [address] Patient Name: CHRISTINE OTTO MR #: [id number] : 1990 Age/Sex: 29/F Req #: [id number] Adm Physician: STEPHEN LOVE MD Ordered by: STEPHEN LOVE MD Report #: [id number] Location: MED/SURG2 Room/Bed: [facility] Procedure: [id number] CT/CT ABDOMEN/PELVIS W Exam Date: 05/12/20 Exam Time: 103 2 REPORT STATUS: Signed CT of the chest, abdomen, and pelvis, with contrast, 05/12/2020. Histor y: Weakness, petechia. Comparison: CT chest 11/27/2019. CT abdomen and pelvi s 07/22/2019. Technique: Technique: Multidetector CT scanning of the chest, abdomen, and pelvis was performed from the level of the lung apices to the in ferior pubic rami after intravenous and oral administration of contrast. David nal and sagittal multiplanar reformations were obtained. RADIATION DOSE: Total DLP: 1013 mGy*cm Dose modulation, iterative reconstruction, and/or weight based adjustment of the mA/kV was utilized to reduce the radiati on dose to as low as reasonably achievable. Discussion: CHEST: The a tria, ventricles, aorta, and main pulmonary artery are normal in size. The thy roid is unremarkable. The thyroid is unremarkable. Bilateral axillary adenopat hy is unchanged except for resection of one left maxillary node, with surgical clips now present. There is no evidence of mediastinal adenopathy. There is b ibasilar and lingular subsegmental atelectasis. There is no evidence of consol idation, mass, or pleural effusion. ABDOMEN: The liver is mildly enlarged measuring 17 cm in length, but there is no focal hepatic abnormality. The gal lbladder, biliary tree, spleen, pancreas, adrenal glands, and kidneys are norm al. The hepatic vein, portal vein, and splenic vein are patent. The abdominal aorta is within normal limits for size. Evaluation of bowel is limited withou t oral contrast. There is no bowel dilatation. Scattered subcentimeter retrop eritoneal nodes are present, nonspecific. There is no evidence of adenopathy o r free fluid. PELVIS: The bladder, uterus, and adnexa are unremarkable. There is no evidence of free fluid. Mildly enlarged bilateral inguinal and ext ernal and internal iliac lymph nodes are present measuring up to 1.3 cm bilate rally. BONES AND SOFT TISSUES: No acute abnormality. IMPRESSION: 1. Bilateral axillary adenopathy is again noted, with interval excisional b iopsy of one left axillary node. Subsegmental atelectasis is present bilateral ly without acute or suspicious pulmonary findings. 2. Mild hepatomegaly withou t focal hepatic abnormality. Otherwise unremarkable abdomen. 3. Mild bilater al pelvic and inguinal adenopathy without significant change. Signed by: Jorge Hurst on 05/12/2020 11:31 AM Dictated By: ERIC stevens Signed By: ERIC HURST MD on 05/12/20 113 Transcribed By: IONA on 05/12/20 113 COPY TO: STEPHEN LOVE MD Automated reticulocyte count as percentage of total jtdztbtjrgzq1606-47-59 09:08:00* Test Item Value Reference Range Interpretation Comments Percent Reticulocyte Count (test code = 26471-4) 3.1 0.8-2 .2 [facility] AreaProthrombin time (PT) in platelet poor plasma by coagulation npjvh5741-13-63 09:08:00* Test Item Value Reference Range Interpretation Comments Prothrombin Time (test code = 5902-2) 14.6 11.9-14.5 [facility] Area[facility]R in Platelet poor plasma by Coagulation lrshx4861-13-41 09:08:00* Test Item Value Reference Range Interpretation Comments Prothromb Time International Ratio (test code = 6301-6) 1.08 Oral Anticoagulant Therapy INR Values:1. Low Intensity Therapy 1.5 - 2.02 . Moderate Intensity Therapy 2.0 - 3.03. High Intensity Therapy(1) 2.5 - 3. 54. High Intensity Therapy(2) 3.0 - 4.05. Panic Value INR > 5.0 [facility] AreaFibrin D-dimer DDU measurement in platelet poor plasma (mass/volume)2020-05-12 09:08:00* Test Item Value Reference Range Interpretation Comments D-Dimer Quantitative (PE/DVT) (test code = 35841-4) 3020 0- 400 As with all in vitro diagnostic tests, the test results should be interpreted by the physician in conjunction with clinical findings and other test results.Test results are reported in NEW D-dimer units(ug/mLFEU).[facility] AreaFibrinogen measurement in platelet poor plasma by coagulation assay (mass/volume)2020-05-12 09:08:00* Test Item Value Reference Range Interpretation Comments Fibrinogen (test code = 3255-7) 326 204-462 [facility] or plasma iron measurement (mass/volume)2020-05-12 09:08:00* Test Item Value Reference Range Interpretation Comments Iron Level (test code = 2498-4) 42 50-170 [facility] Cluberum or plasma iron binding capacity measurement (mass/volume)2020-05-12 09:08:00* Test Item Value Reference Range Interpretation Comments Total Iron Binding Capacity (test code = 2500-7) 315 261-4 78 [facility] Cluberum or plasma iron saturation measurement (mass fraction)2020-05-12 09:08:00* Test Item Value Reference Range Interpretation Comments Percent Iron Saturation (test code = 2502-3) 13 15-50 [facility] Cluberum or plasma transferrin measurement (mass/volume)2020-05-12 09:08:00* Test Item Value Reference Range Interpretation Comments Transferrin (test code = 3034-6) 225 180-382 [facility] Cluberum or plasma ferritin measurement (mass/volume)2020-05-12 09:08:00* Test Item Value Reference Range Interpretation Comments Ferritin (test code = 2276-4) 116.93 4.63-204.00 [facility] AreaBlood cobalamin (vitamin B12) measurement (mass/volume)2020-05-12 09:08:00* Test Item Value Reference Range Interpretation Comments Vitamin B12 Level (test code = 80746-5) 853 213-816 [facility] Cluberum or plasma hepatitis A virus IgM antibody detection by fjysulxtyhx7258-84-71 09:08:00* Test Item Value Reference Range Interpretation Comments Hepatitis A IgM Antibody (test code = 42664-6) Negative Negativ e [facility] Club[facility]um or plasma hepatitis B virus surface antigen detection by oqrvmzmnmln7236-94-37 09:08:00* Test Item Value Reference Range Interpretation Comments Hepatitis B Surface Antigen (test code = 5196-1) Negative Negat shavon [facility]um or plasma hepatitis B virus core IgM antibody detection by coqjdqqiict5395-01-75 09:08:00* Test Item Value Reference Range Interpretation Comments Hepatitis B Core IgM Antibody (test code = 48876-7) Negative Ne gative [facility] Club[facility]um hepatitis C virus antibody ubtdzhcym8476-54-61 09:08:00* Test Item Value Reference Range Interpretation Comments Hepatitis C Antibody (test code = 71851-1) 0.3 0.0-0.9 Negative: < 0.8 Indeterminate: 0.8 - 0.9 Positive: > 0.9 The CDC recommends that a positive HCV antibody result be followed up with a HCV Nucleic Acid Amplification test (204596).Performed at: [facility] [id number] Director: Aba Brantley MD, Phone: [phone] [facility] & [facility] Cluberum or plasma folate measurement (mass/volume)2020-05-12 09:08:00* Test Item Value Reference Range Interpretation Comments Folate (test code = 2284-8) 9.0 >3.0 A serum folate concentration of less than 3.1 ng/mL isconsidered to represent cl inical deficiency.Performed at: [facility] [address] [id number] Director: Aba Brantley MD, Phone: [phone] Scott & [facility] Cluberum or plasma triglyceride measurement (mass/volume) 2020-05-12 07:25:00* Test Item Value Reference Range Interpretation Comments Triglycerides Level (test code = 2571-8) 88 0-149 [facility] Cluberum or plasma cholesterol measurement (mass/volume)2020-05-12 07:25:00* Test Item Value Reference Range Interpretation Comments Cholesterol Level (test code = 2093-3) 99 0-199 Less than 200 mg/dL Low Htku549 - 239 mg/dL Borderline Fcli817 m g/dl and greater High Risk [facility] or plasma cholesterol in LDL measurement (mass/volume) 2020-05-12 07:25:00* Test Item Value Reference Range Interpretation Comments LDL Cholesterol (test code = 2089-1) 61 60-130 [facility]um or plasma cholesterol in HDL measurement (mass/volume)2020-05-12 07:25:00* Test Item Value Reference Range Interpretation Comments HDL Cholesterol (test code = 2085-9) 20 40-60 [facility]um or plasma total cholesterol/cholesterol in HDL mass cyczp0030-94-16 07:25:00* Test Item Value Reference Range Interpretation Comments Cholesterol/HDL Ratio (test code = 9830-1) 5.0 3.0-3.6 [facility] AreaFluoroscopic procedure less than one hour ggcfmlqi7524-25-01 05:05:00* Test Item Value Reference Range Interpretation Comments Hemoglobin A1c Percent (test code = Hemoglobin A1c Percent) 4.9 4.0-7.0 [facility] AreaUrine color qwazigqlgpekc8292-50-00 22:40:00* Test Item Value Reference Range Interpretation Comments Urine Color (test code = 5778-6) YELLOW YELLOW DARK YELLOWCorpus [facility]i [facility] AreaUrine xjznzmt4358-54-72 22:40:00* Test Item Value Reference Range Interpretation Comments Urine Clarity (test code = 91586-0) SL CLOUDY CLEAR [facility] Clubpecific gravity of Urine by Test strip 2020-05-11 22:40:00* Test Item Value Reference Range Interpretation Comments Urine Specific [place] (test code = 5811-5) 1.030 1.010-1.02 5 [facility] AreaU[facility] pH measurement by automated test ujjqz0673-95-20 22:40:00* Test Item Value Reference Range Interpretation Comments Urine pH (test code = 83514-9) 5.5 5-7 [facility] AreaUrine leukocyte esterase detection by iazmcurj0493-29-45 22:40:00* Test Item Value Reference Range Interpretation Comments Urine Leukocyte Esterase (test code = 5799-2) NEGATIVE NEGATIVE [facility] AreaUrine nitrite utwvnzpss2301-83-11 22:40:00* Test Item Value Reference Range Interpretation Comments Urine Nitrite (test code = 04276-0) NEGATIVE NEGATIVE [facility] AreaUrine protein measurement by test strip (mass/volume)2020-05-11 22:40:00* Test Item Value Reference Range Interpretation Comments Urine Protein (test code = 5804-0) 2+ NEGATIVE [facility] AreaUrine glucose mqysqqfyg2621-78-78 22:40:00* Test Item Value Reference Range Interpretation Comments Urine Glucose (UA) (test code = 2349-9) NEGATIVE NEGATIVE [facility] AreaUrine ketones detection by automated test nppre9224-24-81 22:40:00* Test Item Value Reference Range Interpretation Comments Urine Ketones (test code = 38135-6) 2+ NEGATIVE [facility] AreaUrine urobilinogen measurement by test strip (mass/volume)2020-05-11 22:40:00* Test Item Value Reference Range Interpretation Comments Urine Urobilinogen (test code = 77859-7) 1 0.2-1 [facility] AreaU[facility] total bilirubin measurement (mass/volume)2020-05-11 22:40:00* Test Item Value Reference Range Interpretation Comments Urine Bilirubin (test code = 1978-6) SMALL NEGATIVE [facility] AreaUrine erythrocytes oawmiicgo3152-27-16 22:40:00* Test Item Value Reference Range Interpretation Comments Urine Blood (test code = 88380-8) LARGE NEGATIVE [facility] AreaAutomated urine sediment leukocyte count by microscopy (number/high power field)2020-05-11 22:40:00* Test Item Value Reference Range Interpretation Comments Urine WBC (test code = 5821-4) 0-5 0-5 [facility] AreaErythrocytes detection in urine sediment by light rkykurprym6735-15-68 22:40:00* Test Item Value Reference Range Interpretation Comments Urine RBC (test code = 59239-1) 11-20 0-5 [facility] AreaBacteria detection in urine sediment by light jrnofucubm9959-13-60 22:40:00* Test Item Value Reference Range Interpretation Comments Urine Bacteria (test code = 95710-0) FEW NONE [facility] AreaEpithelial cells detection in urine sediment by light ptqabsekaf3932-75-11 22:40:00* Test Item Value Reference Range Interpretation Comments Urine Epithelial Cells (test code = 09905-1) MANY NONE [facility] AreaFluoroscopic procedure less than one hour gpzuavgw6944-61-74 16:33:00* Test Item Value Reference Range Interpretation Comments Coronavirus (PCR) (test code = Coronavirus (PCR)) NOT DETECTED NOTD ETECTED [facility] [employer] SARS-CoV-2 assay is a nucleic amplification test intended for the qualitative detection of RNA from SARS-CoV-2 from nasopharyngeal (CABLE SPLICER HELPER) specimens . It is used under Emergency Use Authorization (EUA) by FDA.A positive result is indicative of the presence of SARS-CoV-2 RNA. Clinical correlation with patient history and other diagnostic information is necessary to determine patient infe ction status.A negative (Not Detected) result does not preclude SARS-CoV-2 infec tion. Clinical Correlation with patient history and other diagnostic information should be used in patient management decisions.Invalid: Unable to generate a va lid result on this specimen. Please submit a new specimen for reprat testing oc clinically indicated.Tesing performed by:[facility] [id number] [place] [id number], Jono Blanco MD, PhD [facility] AreaBlood polychromasia detection by light rnsxppsnjb5819-38-81 15:15:00* Test Item Value Reference Range Interpretation Comments Polychromasia (test code = 52733-6) FEW [facility] AreaActivated partial thromboplastin time (aPTT) in platelet poor plasma by coagulation ybuzu3923-25-50 15:15:00* Test Item Value Reference Range Interpretation Comments Activated Partial Thromboplast Time (test code = 63265-4) 25.4 23.8-35.5 [facility] Cluberum or plasma choriogonadotropin ( test) hwhampevt3358-65-07 15:15:00* Test Item Value Reference Range Interpretation Comments Human Chorionic Gonadotropin, Qual (test code = 2118-8) NEGATIVE NEGATIVE [facility] AreaBlood leukocytes automated count (number/volume)2020-02-25 09:20:00* Test Item Value Reference Range Interpretation Comments White Blood Count (test code = 6690-2) 7.68 4.8-10.8 [facility] AreaBlood erythrocytes automated count (number/volume)2020-02-25 09:20:00* Test Item Value Reference Range Interpretation Comments Red Blood Count (test code = 789-8) 3.96 3.6-5.1 [facility] AreaBlood hemoglobin measurement (moles/volume)2020-02-25 09:20:00* Test Item Value Reference Range Interpretation Comments Hemoglobin (test code = 42636-3) 10.8 12.0-16.0 [facility] AreaAutomated blood hematocrit (volume fraction)2020-02-25 09:20:00* Test Item Value Reference Range Interpretation Comments Hematocrit (test code = 4544-3) 34.4 34.2-44.1 [facility] AreaAutomated erythrocyte mean corpuscular sapxdt8041-32-37 09:20:00* Test Item Value Reference Range Interpretation Comments Mean Corpuscular Volume (test code = 787-2) 86.9 81-99 [facility] AreaAutomated erythrocyte mean corpuscular hemoglobin (mass per erythrocyte)2020-02-25 09:20:00* Test Item Value Reference Range Interpretation Comments Mean Corpuscular Hemoglobin (test code = 785-6) 27.3 28-32 [facility] AreaAutomated erythrocyte mean corpuscular hemoglobin concentration measurement (mass/volume)2020-02-25 09:20:00* Test Item Value Reference Range Interpretation Comments Mean Corpuscular Hemoglobin Concent (test code = 786-4) 31.4 31-35 [facility] AreaRDW FgeNf-Fpe7375-45-18 09:20:00* Test Item Value Reference Range Interpretation Comments Red Cell Distribution Width (test code = 30429-2) 14.6 11.7 -14.4 [facility] AreaAutomated blood platelet count (count/volume)2020-02-25 09:20:00* Test Item Value Reference Range Interpretation Comments Platelet Count (test code = 777-3) 213 140-360 [facility] AreaAutcape fear/harnett healthed blood segmented neutrophil count as percentage of total rwxexabgbi8850-66-38 09:20:00* Test Item Value Reference Range Interpretation Comments Neutrophils (%) (Auto) (test code = 18098-8) 68.4 38.7-80.0 [facility] AreaAutomated blood lymphocyte count as percentage ot total myfkexdmvh7078-97-80 09:20:00* Test Item Value Reference Range Interpretation Comments Lymphocytes (%) (Auto) (test code = 736-9) 25.4 18.0-39.1 [facility] AreaAutomated blood monocyte count as percentage of total jdnvpbnuuy8999-53-60 09:20:00* Test Item Value Reference Range Interpretation Comments Monocytes (%) (Auto) (test code = 5905-5) 5.6 4.4-11.3 [facility] AreaAutomated blood eosinophil count as percentage of total zyjvljjasq4584-42-52 09:20:00* Test Item Value Reference Range Interpretation Comments Eosinophils (%) (Auto) (test code = 713-8) 0.0 0.0-6.0 [facility] AreaAutomated blood basophil count as percentage of total bybjtbxgnr8241-64-49 09:20:00* Test Item Value Reference Range Interpretation Comments Basophils (%) (Auto) (test code = 706-2) 0.3 0.0-1.0 [facility] AreaFluoroscopic procedure less than one hour xwkzksho2264-48-25 09:20:00* Test Item Value Reference Range Interpretation Comments IM GRANULOCYTES % (test code = IM GRANULOCYTES %) 0.3 0.0- 1.0 [facility] AreaAutomated blood neutrophil count 2020-02-25 09:20:00* Test Item Value Reference Range Interpretation Comments Neutrophils # (Auto) (test code = 751-8) 5.3 2.1-6.9 [facility] AreaBlood lymphocytes count (number/volume) 2020-02-25 09:20:00* Test Item Value Reference Range Interpretation Comments Lymphocytes # (Auto) (test code = 40463-5) 2.0 1.0-3.2 [facility] AreaBlood monocytes automated count (number/volume)2020-02-25 09:20:00* Test Item Value Reference Range Interpretation Comments Monocytes # (Auto) (test code = 742-7) 0.4 0.2-0.8 [facility] AreaAutomated blood eosinophil count 2020-02-25 09:20:00* Test Item Value Reference Range Interpretation Comments Eosinophils # (Auto) (test code = 711-2) 0.0 0.0-0.4 [facility] AreaAutomated blood basophil count (count/volume)2020-02-25 09:20:00* Test Item Value Reference Range Interpretation Comments Basophils # (Auto) (test code = 704-7) 0.0 0.0-0.1 [facility] AreaFluoroscopic procedure less than one hour jbpcaldh7063-93-88 09:20:00* Test Item Value Reference Range Interpretation Comments Absolute Immature Granulocyte (auto (dana t code = Absolute Immature Granulocyte (auto) 0.02 0-0.1 [facility] Club[facility]um or plasma sodium measurement (moles/volume)2020-02-25 09:20:00* Test Item Value Reference Range Interpretation Comments Sodium Level (test code = 2951-2) 135 136-145 [facility] Cluberum or plasma potassium measurement (moles/volume)2020-02-25 09:20:00* Test Item Value Reference Range Interpretation Comments Potassium Level (test code = 2823-3) 3.5 3.5-5.1 [facility] Cluberum or plasma chloride measurement (moles/volume)2020-02-25 09:20:00* Test Item Value Reference Range Interpretation Comments Chloride Level (test code = 2075-0) 102 98-107 [facility] Cluberum or plasma carbon dioxide, total measurement (moles/volume)2020-02-25 09:20:00* Test Item Value Reference Range Interpretation Comments Carbon Dioxide Level (test code = 2028-9) 22 22-29 [facility] Cluberum or plasma anion ydr9149-64-25 09:20:00* Test Item Value Reference Range Interpretation Comments Anion Gap (test code = 06581-1) 14.5 8-16 [facility] Cluberum or plasma urea nitrogen measurement (mass/volume)2020-02-25 09:20:00* Test Item Value Reference Range Interpretation Comments Blood Urea Nitrogen (test code = 3094-0) 12 7- [facility] Cluberum or plasma creatinine measurement (mass/volume)2020-02-25 09:20:00* Test Item Value Reference Range Interpretation Comments Creatinine (test code = 2160-0) 1.08 0.57-1.11 [facility] Cluberum or plasma urea nitrogen/creatinine mass noipz0375-77-64 09:20:00* Test Item Value Reference Range Interpretation Comments BUN/Creatinine Ratio (test code = 3097-3) 11 6- [facility] AreaEstimated glomerular filtration rate (GFR) wxhkiufpnxtxd2614-84-34 09:20:00* Test Item Value Reference Range Interpretation Comments Estimat Glomerular Filtration Rate (test code = 930719175) > 60 >60 Ranges were taken from the National Kidney Disease Education Program and the [facility] literature.Reference ranges:60 or greater: Taksfl52-14 ( for 3 consecutive months): Chronic kidney disease 15 or less: Kidney failureCorpus Christi Medical Center Bay AreaGlucose vqtphgyxxjp0120-47-97 09:20:00* Test Item Value Reference Range Interpretation Comments Glucose Level (test code = XCT3032) 133 74-118 [facility] Cluberum or plasma calcium measurement (mass/volume)2020-02-25 09:20:00* Test Item Value Reference Range Interpretation Comments Calcium Level (test code = 89267-7) 9.2 8.4-10.2 [facility] Cluberum or plasma total bilirubin measurement (mass/volume)2020-02-25 09:20:00* Test Item Value Reference Range Interpretation Comments Total Bilirubin (test code = 1975-2) 0.3 0.2-1.2 [facility] AreaFluoroscopic procedure less than one hour tjrowevx9335-61-70 09:20:00* Test Item Value Reference Range Interpretation Comments Aspartate Amino Transf (AST/SGOT) (test code = Aspartate Amino Transf (AST/SGOT)) 26 5-34 [facility] Cluberum or plasma alanine aminotransferase measurement (enzymatic activity/volume)2020-02-25 09:20:00* Test Item Value Reference Range Interpretation Comments Alanine Aminotransferase (ALT/SGPT) (test code = 1742-6) 17 0-55 [facility] Cluberum or plasma protein measurement (mass/volume)2020-02-25 09:20:00* Test Item Value Reference Range Interpretation Comments Total Protein (test code = 2885-2) 9.5 6.5-8.1 [facility] Cluberum or plasma albumin measurement (mass/volume)2020-02-25 09:20:00* Test Item Value Reference Range Interpretation Comments Albumin (test code = 1751-7) 3.7 3.5-5.0 [facility] AreaPlasma globulin measurement (mass/volume) 2020-02-25 09:20:00* Test Item Value Reference Range Interpretation Comments Globulin (test code = 03051-2) 5.8 2.3-3.5 [facility] Cluberum or plasma albumin/globulin mass qumcq2271-07-80 09:20:00* Test Item Value Reference Range Interpretation Comments Albumin/Globulin Ratio (test code = 1759-0) 0.6 0.8-2.0 [facility] Cluberum or plasma alkaline phosphatase measurement (enzymatic activity/volume)2020-02-25 09:20:00* Test Item Value Reference Range Interpretation Comments Alkaline Phosphatase (test code = 6768-6) 26 40-150 [facility] Cluberum or plasma chorionic gonadotropin measurement (mass/volume)2020-02-25 09:20:00* Test Item Value Reference Range Interpretation Comments Human Chorionic Gonadotropin, Quant (test code = 72737-8) 24.53 0-10 [facility] Cluberum or plasma chorionic gonadotropin measurement (mass/volume)2020-02-25 09:20:00* Test Item Value Reference Range Interpretation Comments Human Chorionic Gonadotropin, Quant (test code = 26619-3) 24.53 0-10 [facility] AreaBASIC METABOLIC [id number] 13:52:00 * Test Item Value Reference Range [...] CA) 8.8 mg/dL 8.5-10.1 N HCG SERUM [id number] 13:52:00* Test Item Value Reference Range Interpretation [...] CONCEPTION 10,000-100,000 MIU/ML - US PREG 1ST [id number] 13:48:00 Name: CHRISTINE OTTO [facility] : 1990 Age/S: 29 / F Lashawn Avendano Unit #: [id number] Loc: [place] [address] Phys: Qi Pratt CABLE SPLICER HELPER Acct: [id number] Dis Date: Status: REG ER PHONE #: [phone] Exam Date: 02/20/2020 1245 FAX #: [phone] Reason: VAGINAL BLEEDING/PELVIC PAIN EXAMS: CPT CODE: [id number] US PREG 1ST TRIMTR 60458 EXAM: First trimester ultrasound, transvaginal ultrasound and [...] Probable uterine fibroids as described. Location code: [facility] at 1348 Reported and signed by: Tristen Isabel M.D. CC: Ashu Love MD; Qi Pratt NP Technologist: JONE RODRIGUEZ Trnscb Date/Time: 02/20/2020 (8084) DariaGR W Orig Print D/T: S: 02/20/2020 (3395) Probe: PAGE 1 Signed Report - DUP AB/PEL/SC [id number] 13:48:00 Name: CHRISTINE OTTO [facility] : 1990 Age[facility]S: 29 / [facility] [address] [facility]: [id number] Loc: [place] [address] Phys: Qi Pratt CABLE SPLICER HELPER Acct: [id number] Dis Date: Status: REG ER PHONE #: [phone] Exam Date: 02/20/2020 1245 FAX #: [phone] Reason: PELVIC PAIN EXAMS: CPT CODE: [id number] DUP AB/PEL/SC COMP 66949 EXAM: First trimester ultrasound, transvaginal ultrasound and [...] Probable uterine fibroids as described. Location code: [facility] at 1348 Reported and signed by: Tristen Isabel M.D. CC: Ashu Love MD; Qi Pratt NP Technologist: JONE RODRIGUEZ Trnscb Date/Time: 02/20/2020 (9958) DariaGR W Orig Print D/T: S: 02/20/2020 (4229) Probe: PAGE 1 Signed Report - US PREG UT [id number] 13:48:00 Name: CHRISTINE OTTO [facility] : 1990 Age/S: 29 / F [address] [facility] Unit #: [id number] Loc: [place] [address] Phys: Qi Pratt NP Acct: [id number] Dis Date: Status: REG ER PHONE #: [phone] Exam Date: 02/20/2020 1245 FAX #: [phone] Reason: PELVIC PAIN EXAMS: CPT CODE: [id number] US PREG UT TRANSVAGINAL 82330 EXAM: First trimester ultrasound, transvaginal ultrasound and [...] Probable uterine fibroids as described. Location code: [facility] at 1348 Reported and signed by: Tristen Isabel M.D. CC: Ashu Love MD; Qi Pratt NP Technologist: JONE RODRIGUEZ Trnscb Date/Time: 02/20/2020 (1348) t.DEANAR.GR W Orig Print D/T: S: 02/20/2020 (6244) Probe: [id number] X9 PAGE 1 Signed Report BASIC METABOLIC [id number] 13:39:00* Test Item Value Reference Range Interpretation [...] code = CA) mg/dL 8.5-10.1 HCG SERUM [id number] 13:39:00* Test Item Value Reference Range Interpretation Comments HCG SERUM BETA (test code = HCG) mIU/mL 0-3 CBC W/O [id number] 13:30:00* Test Item Value Reference Range Interpretation [...] = MPV) 12.0 fL 6.7-11.0 H URINALYSIS [id number] 13:29:00* Test Item Value Reference Range Interpretation [...] FEW #/LPF FEW Urine Source? Clean CatchURINALYSIS [id number] 13:03:00* Test Item Value Reference Range Interpretation [...] HPF NONE Urine Source? Clean CatchBASIC METABOLIC [id number] 14:30:00* Test Item Value Reference Range Interpretation [...] CA) 8.2 mg/dL 8.5-10.1 L HCG SERUM [id number] 14:30:00* Test Item Value Reference Range Interpretation Comments HCG SERUM QUAL (test code = HCGQL) NEGATIVE NEGATIVE This HCGQL test is NOT applicable for MALE patients.Check with nurse about probable order error.If Tumor Marker Test needed, nurse should order test "HCGTU"(Test #550.31545) BASIC METABOLIC [id number] 14:25:00* Test Item Value Reference Range Interpretation [...] code = CA) mg/dL 8.5-10.1 HCG SERUM [id number] 14:25:00* Test Item Value Reference Range Interpretation Comments HCG SERUM QUAL (test code = HCGQL) NEGATIVE NEGATIVE This HCGQL test is NOT applicable for MALE patients.Check with nurse about probable order error.If Tumor Marker Test needed, nurse should order test "HCGTU"(Test #550.21884) CBC W/AUTO [id number] 14:12:00* Test Item Value Reference Range Interpretation [...] = NRBC#) 0.00 K/mm3 0.0-0.1 N LYMPH NODE,[id number] 16:06:00 RUN DATE: 12/17/19 [place] - Lab PAGE 1 RUN TIME: 1606 Specimen Inqui ry RUN USER: INTERFACE PATIENT: CHRISTINE OTTO ACCT #: [id number] LOC: G U #: [id number] AGE/SX: 29/ ROOM: RE12/14/19REG DR: Tio Melton MD : 88 BED: DIS: STATUS: GONSALO LEBLANCC TLOC: SPEC #: [id number] RECD: 12/14/19 STATUS: REGULO RETing #: [id number] TED: 12/14/19 [facility] [address]: Tio Melton MD ENTERED: 12/14/19 SP TYPE: BX LYMPH OTHR DR: Stephen Love MD ORDERED: GROSS COPIES TO: Tio eMlton MD [address] [place], [place] [address] Stephen Love MD [address] [facility] [address] [place], [place] [address] [email or web address] PROCEDURES: GROSS (12/17/19-1453) TISSUES: LYMPH NODE, NOS [...] dence of autoimmune disorders. Evaluation by a cartography supervisor may be appropriat e. It may also be appropriate to screen this patient for autoimmunity as well a s serum IgG4. Importantly, patients with IgG4 RD tend to respond very well to steroid therapy and/or rituximab. Clinical correlation is recommended. Refe rence: Valerie et al. Consensus statement on the pathology of IgG4 related di sease. Modern Pathology, 2010. 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 D [address] FLOW CYTOMETRY Flow Cytometry Analysis Accession/Jaziel e No:[id number] Diagnosis:No flow immunophenotypic evidence of a lym [...] ON NEXT PAGE -- RUN DATE: 12/17/19 [facility] PAGE 3 RUN TIME: 1606 Specimen Inquiry RUN USER: INTERFACE SPEC #: [id number] PATIENT: CHRISTINE OTTO #[id number] (Continued) FLOW CYTOMETRY (Continued) CD45 Ne.1% Plasma Cells: 1.2% Markers Performed:CD2, CD 3, CD4, CD5, CD7, CD8, CD10, CD11c, CD13, CD14, CD16, CD19, CD20, CD23, CD33, CD 34,CD38, CD45, CD56, CD64, CD117, HLA-DR, Reagan, Lambda (24 Markers) CPT Codes:8 8184x1, 62124x09, 66808w7 Microscopic DescriptionA digital image of a cytospin s lide was reviewed for QA purposes. Electronic Bonnie Carrillo M.D. The Technical Component Processing, Analysis and Professional Component of this test wascompleted at [facility], [address] [place] [address], [address], [place], [place] / [address] /[phone] / CLIA# [id number] / Precise Winder(s): Tio Gomez MD.This test was developed and [...] may be included within this report are retail sales representative of the patient but notall testing in its entiret y and should not be used to render a result.The CPT codes provided with our test descriptions are based on AMA guidelines and are forinformational purposes only . Correct CPT coding is the sole responsibility of the billingparty. Please dire ct any questions regarding coding to the payer being billed. 2019 [employer]. All rights reserved. [employer] and theassociated logo are trademarks of [employer] MACROSCOPIC T he specimen is received fresh [...] for flow cytometry studies. Section Code: 1A-1D- retail sales representative tissue. GROSS PERFORMED AT [facility] CONTINUED ON NEXT PAGE RUN DATE: 12/17/19 [facility] PAGE 4 RUN TIME: 1606 Specimen Inquiry RUN USER: INTERFACE SPEC #: [id number] PATIENT: CHRISTINE OTTO #[id number] (Continue d) MACROSCOPIC (Continued) [facility] [address] [place] [address] (P)[phone] MICROSCOPIC All of the stains, including any controls performed, stain appropriately. MICROSCOPIC PERFORMED AT [facility] [address] [place] [address] (P) PERFORMING SITE Diagnosis performed at: [facility] are [facility], [place] [address] [place] [address] Signed Vidal Casas MD 12/17/19 1606 END OF REPORT HCG SERUM [id number] 15:02:00* Test Item Value Reference Range Interpretation Comments HCG SERUM QUAL (test code = HCGQL) NEGATIVE NEGATIVE This HCGQL test is NOT applicable for MALE patients.Check with nurse about probable order error.If Tumor Marker Test needed, nurse should order test "HCGTU"(Test #550.63975) BASIC METABOLIC [id number] 15:01:00* Test Item Value Reference Range Interpretation [...] CA) 8.4 mg/dL 8.5-10.1 L BASIC METABOLIC [id number] 14:56:00* Test Item Value Reference Range Interpretation [...] code = CA) mg/dL 8.5-10.1 CBC W/AUTO [id number] 14:25:00* Test Item Value Reference Range Interpretation [...] Coronavirus (PCR)) NOT DETECTED NOTD ETECTED CORONAVIRUS YZUE-KRX-3-RT-PCR (RESPIRATORY)This test has been validated but FDA' s independent review of the validation is pending. This test is performed as a l aboratory developed test; independent review of the validation under FDA's Emerg ency Use Authorization (EUA) authority will be performed according to current [facility] requirements.We will continue to follow federal and state requirements fo r both notification of results and confirmatory testing that is required by [facility] her agency.This test was developed and its performance characteristics determine d by [employer]. It has not been cleared or approved by the U.S. Food and Drug Administration. Results should be used in conjunction with clinical finding s, and should not form the sole basis for a diagnosis or treatment decision.Spec imen [facility] and performed at [facility], [address] [place] [address]. [id number] Adjayek1996-94-74 18:46:00* Test Item Value Reference Range Interpretation Comments Blood Culture (test code = 29282821) NO GROWTH AFTER 5 DAYS, FINAL REPORT [facility] AreaAlbumin (PEP)2019-12-02 13:53:00* Test Item Value Reference Range Interpretation Comments Albumin (PEP) (test code = Albumin (PEP)) 3.0 2.9-4.4 [facility] AreaAlpha-1-Zchsmarqr2822-00-45 13:53:00* Test Item Value Reference Range Interpretation Comments Annbo-9-Qrmheyjol (test code = 2865-4) 0.3 0.0-0.4 [facility] AreaAlpha-2-Llvhidlzo5832-37-70 13:53:00* Test Item Value Reference Range Interpretation Comments Uuoxp-4-Fkjezbnmv (test code = 2868-8) 0.7 0.4-1.0 [facility] AreaBeta Gamma Nezesuxp3935-66-44 13:53:00* Test Item Value Reference Range Interpretation Comments Beta Gamma Globulin (test code = 2871-2) 1.1 0.7-1.3 [facility] AreaGamma Qzexyvfsf2756-81-41 13:53:00* Test Item Value Reference Range Interpretation Comments Gamma Globulins (test code = 2874-6) 3.9 0.4-1.8 H [facility] AreaTotal Protein (PEP)2019-12-02 13:53:00* Test Item Value Reference Range Interpretation Comments Total Protein (PEP) (test code = 2885-2) 9.0 6.0-8.5 H [facility] AreaGlobulin2020-03-25 13:53:00* Test Item Value Reference Range Interpretation Comments Globulin (test code = 04198-1) 6.0 2.2-3.9 H [facility] Bay AreaKappa Light Chain Tyyancft1867-77-46 13:53:00* Test Item Value Reference Range Interpretation Comments Reagan Light Chain Analysis (test code = 50928-1) 236.5 3.3-1 9.4 H [facility] AreaLambda Light Chain Uvrrvxla4782-23-39 13:53:00* Test Item Value Reference Range Interpretation Comments Lambda Light Chain Analysis (test code = 02744-5) 201.9 5.7- 26.3 H [facility] Bay AreaTotl Reagan/Lambda Light Chain Ratio 2019-12-02 13:53:00* Test Item Value Reference Range Interpretation Comments Totl Reagan/Lambda Light Chain Ratio (test code = 38253-6) 1.17 0.26-1.65 Performed at: [facility] [id number] Director: Aba Brantley MD, Phone: [phone] at: [address] [place] [id number] Director: DEBRA Daniel MD, Phone: [phone] [facility] Bay AreaProtein Electrophoresis T-Qgdkz5887-52Qgsfu4347-61-33 13:53:00* Test Item Value Reference Range Interpretation Comments Protein Electrophoresis M-Clay (test code = 95408-8) Not Observ ed Not Observed [facility] AreaAlbumin/Globulin Mqhuz8220-15-69 13:53:00 * Test Item Value Reference Range Interpretation Comments Albumin/Globulin Ratio (test code = 1759-0) 0.5 0.7-1.7 L [facility] AreaProtein Electrophoresis Gdfg6897-02-80 13:53:00* Test Item Value Reference Range Interpretation Comments Protein Electrophoresis Note (test code = Protein Electropho resis Note) Comment . Protein electrophoresis scan will follow via computer,mail, or chemist assistant delivery. [facility] Bay AreaAnti-Double Strand DNA Ywxablug6305-14-97 22:14:00* Test Item Value Reference Range Interpretation Comments Anti-Double Strand DNA Antibody (test code = 5130-0) 3 0 -9 Negative <5 Equivocal 5 - 9 Positive > 9Performed at: [facility] [id number] b Director: Aba Brantley MD, Phone: [phone] Christi Medical Center Bay AreaRheumatoid Ereduu6460-05-30 22:14:00* Test Item Value Reference Range Interpretation Comments Rheumatoid Factor (test code = 21867-9) <10.0 0.0-13.9 Performed at: [facility] [id number] Director: Aba Brantley MD, Phone: [phone] Christi Medical Center Bay AreaUrine Ugxhgfd6831-66-51 22:14:00* Test Item Value Reference Range Interpretation Comments Urine Protein (test code = 2888-6) 6.0 Not Estab. [facility] AreaUrine Lpnwzdj4280-46-92 22:14:00* Test Item Value Reference Range Interpretation Comments Urine Albumin (test code = 42600-5) 41.0 . [facility] AreaUrine Sbtyu-0-Cmbrsyox4612-03-24 22:14:00 * Test Item Value Reference Range Interpretation Comments Urine Bfjek-1-Mqdgsmxl (test code = 88477-7) 4.6 . [facility] AreaUrine Qznfq-4-Ejdtdovav2826-03-24 22:14:00* Test Item Value Reference Range Interpretation Comments Urine Xwhza-5-Xyuezndlu (test code = 71507-4) 8.5 . [facility] AreaUrine Beta Qtfdiyln3636-58-92 22:14:00* Test Item Value Reference Range Interpretation Comments Urine Beta Globulin (test code = 55622-4) 19.9 . [facility] AreaUrine Gamma Aivoqmmy0223-92-80 22:14:00* Test Item Value Reference Range Interpretation Comments Urine Gamma Globulin (test code = 60827-1) 26.0 . [facility] AreaUrine Random PEP M-Clay %2019-12-01 22:14:00* Test Item Value Reference Range Interpretation Comments Urine Random PEP M-Clay % (test code = 01349-7) Not Observed Not O bserved [facility] AreaProtein Electrophoresis Ardm5168-41-16 22:14:00* Test Item Value Reference Range Interpretation Comments Protein Electrophoresis Note (test code = Protein Electropho resis Note) Comment . Protein electrophoresis scan will follow via computer,mail, or chemist assistant delivery. Performed at: [facility] [id number] Director: Aba Brantley MD, Phone: [phone] at: - [facility] [address] [facility] [address], [place], [place] [id number] Director: DEBRA Daniel MD, Phone: [phone] Christi Medical Center Bay AreaUrine Immunofixation 2019-12-01 22:13:00* Test Item Value Reference Range Interpretation Comments Urine Immunofixation (test code = 011785104) Note: . Immunofixation shows IgG monoclonal protein with no confirmedlight chain associa tion, which is suggestive of Heavy ChainDisease. Recommend retesting in 6-10 we ks.Performed at: [facility] [place] [id number] [facility] [address], [place] [address]Lab Director: DEBRA Daniel MD, Phone: [phone] Christi [facility] Bay AreaErythrocyte Sedimentation Eksk2474-24-81 09:30:00* Test Item Value Reference Range Interpretation Comments Erythrocyte Sedimentation Rate (test code = 4537-7) 87 0- 20 H [facility] Bay AreaDifferential Total Cells Counted 2019-11-30 08:02:00* Test Item Value Reference Range Interpretation Comments Differential Total Cells Counted (test code = Differen tial Total Cells Counted) 100 [facility] AreaNeutrophils % (Manual)2019-11-30 08:02:00 * Test Item Value Reference Range Interpretation Comments Neutrophils % (Manual) (test code = 92343-7) 59 40-74 [facility] AreaLymphocytes % (Manual)2019-11-30 08:02:00 * Test Item Value Reference Range Interpretation Comments Lymphocytes % (Manual) (test code = 737-7) 35 19-48 [facility] AreaMonocytes % (Manual)2019-11-30 08:02:00* Test Item Value Reference Range Interpretation Comments Monocytes % (Manual) (test code = 744-3) 5 3.4-9.0 [facility] AreaEosinophils % (Manual)2019-11-30 08:02:00 * Test Item Value Reference Range Interpretation Comments Eosinophils % (Manual) (test code = 714-6) 1 0-7 [facility] AreaWhite Blood Pwobi3273-82-81 06:23:00* Test Item Value Reference Range Interpretation Comments White Blood Count (test code = 6690-2) 4.85 4.8-10.8 [facility] Bay AreaRed Blood Dzzzy7753-60-26 06:23:00* Test Item Value Reference Range Interpretation Comments Red Blood Count (test code = 789-8) 3.71 3.6-5.1 [facility] AreaHemoglobin2020-03-23 06:23:00* Test Item Value Reference Range Interpretation Comments Hemoglobin (test code = 96957-0) 10.7 12.0-16.0 L [facility] AreaHematocrit2020-03-23 06:23:00* Test Item Value Reference Range Interpretation Comments Hematocrit (test code = 4544-3) 34.2 34.2-44.1 [facility] Bay AreaMean Corpuscular Uukqkb8374-90-74 06:23:00* Test Item Value Reference Range Interpretation Comments Mean Corpuscular Volume (test code = 787-2) 92.2 81-99 [facility] AreaMean Corpuscular Enblwwdevq3457-11-80 06:23:00* Test Item Value Reference Range Interpretation Comments Mean Corpuscular Hemoglobin (test code = 785-6) 28.8 28-32 [facility] AreaMean Corpuscular Hemoglobin Concent 2019-11-30 06:23:00* Test Item Value Reference Range Interpretation Comments Mean Corpuscular Hemoglobin Concent (test code = 786-4) 31.3 31-35 [facility] AreaRed Cell Distribution Zvvhs9573-91-68 06:23:00* Test Item Value Reference Range Interpretation Comments Red Cell Distribution Width (test code = 77545-5) 13.8 11.7 -14.4 [facility] Bay AreaPlatelet Kqeyp3588-60-84 06:23:00* Test Item Value Reference Range Interpretation Comments Platelet Count (test code = 777-3) 250 140-360 [facility] AreaFluoroscopic procedure less than one hour nflgfiai6644-73-90 05:50:00* Test Item Value Reference Range Interpretation Comments Differential Total Cells Counted (test code = South tial Total Cells Counted) 100 [facility] AreaManual blood neutrophils/100 leukocytes 2019-11-30 05:50:00* Test Item Value Reference Range Interpretation Comments Neutrophils % (Manual) (test code = 15969-4) 59 40-74 [facility]100 leukocytes 2019-11-30 05:50:00* Test Item Value Reference Range Interpretation Comments Lymphocytes % (Manual) (test code = 737-7) 35 19-48 [facility] Hospitalual blood monocytes/100 leukocytes 2019-11-30 05:50:00* Test Item Value Reference Range Interpretation Comments Monocytes % (Manual) (test code = 744-3) 5 3.4-9.0 [facility] blood eosinophil count as percentage of total qpqbvfcyfx8463-75-14 05:50:00* Test Item Value Reference Range Interpretation Comments Eosinophils % (Manual) (test code = 714-6) 1 0-7 [facility] AreaErythrocyte sedimentation rate by Westergren kmszsu5000-39-35 05:50:00* Test Item Value Reference Range Interpretation Comments Erythrocyte Sedimentation Rate (test code = 4537-7) 87 0- 20 [facility] AreaFluoroscopic procedure less than one hour gafstrsq6013-30-04 05:50:00* Test Item Value Reference Range Interpretation Comments Albumin (PEP) (test code = Albumin (PEP)) 3.0 2.9-4.4 [facility] Cluberum or plasma alpha 1 globulin measurement by electrophoresis (mass/volume)2019-11-30 05:50:00* Test Item Value Reference Range Interpretation Comments Rkrqr-8-Ycywbnwgq (test code = 2865-4) 0.3 0.0-0.4 [facility] Cluberum or plasma alpha 2 globulin measurement by electrophoresis (mass/volume)2019-11-30 05:50:00* Test Item Value Reference Range Interpretation Comments Ofomy-5-Ksxqabpgl (test code = 2868-8) 0.7 0.4-1.0 [facility] Cluberum or plasma beta globulin measurement by electrophoresis (mass/volume)2019-11-30 05:50:00* Test Item Value Reference Range Interpretation Comments Beta Gamma Globulin (test code = 2871-2) 1.1 0.7-1.3 [facility] Cluberum or plasma gamma globulin measurement by electrophoresis (mass/volume)2019-11-30 05:50:00* Test Item Value Reference Range Interpretation Comments Gamma Globulins (test code = 2874-6) 3.9 0.4-1.8 [facility] Cluberum or plasma protein measurement (mass/volume)2019-11-30 05:50:00* Test Item Value Reference Range Interpretation Comments Total Protein (PEP) (test code = 2885-2) 9.0 6.0-8.5 [facility] Cluberum globulin measurement by calculation (mass/volume)2019-11-30 05:50:00* Test Item Value Reference Range Interpretation Comments Globulin (test code = 94375-5) 6.0 2.2-3.9 [facility] Cluberum immunoglobulin kappa light chains measurement (mass/volume)2019-11-30 05:50:00* Test Item Value Reference Range Interpretation Comments Reagan Light Chain Analysis (test code = 61932-2) 236.5 3.3-1 9.4 [facility] Cluberum or plasma immunoglobulin free lambda light chains measurement (mass/volume)2019-11-30 05:50:00* Test Item Value Reference Range Interpretation Comments Lambda Light Chain Analysis (test code = 10426-9) 201.9 5.7- 26.3 [facility] Cluberum immunoglobulin kappa light chains/immunoglobulin lambda light chains mass mtoiy3058-33-56 05:50:00* Test Item Value Reference Range Interpretation Comments Totl Reagan/Lambda Light Chain Ratio (test code = 81628-7) 1.17 0.26-1.65 Performed at: - [facility] [id number] Director: Aba Brantley MD, Phone: [phone] at: - [facility], [place], [place] [id number] Director: DEBRA Daniel MD, Phone: [phone] Scott & [facility] Trophy Cluberum or plasma protein monoclonal measurement by electrophoresis (mass/volume)2019-11-30 05:50:00* Test Item Value Reference Range Interpretation Comments Protein Electrophoresis M-Clay (test code = 48776-6) Not Observ ed Not Observed [facility] Cluberum or plasma albumin/globulin mass wnmwz9660-72-23 05:50:00* Test Item Value Reference Range Interpretation Comments Albumin/Globulin Ratio (test code = 1759-0) 0.5 0.7-1.7 [facility] AreaFluoroscopic procedure less than one hour gxexbwwc6121-34-26 05:50:00* Test Item Value Reference Range Interpretation Comments Protein Electrophoresis Note (test code = Protein Electropho resis Note) Comment . Protein electrophoresis scan will follow via computer,mail, or chemist assistant delivery. [facility] Cluberum DNA double strand antibody assay (units/volume)2019-11-30 05:50:00* Test Item Value Reference Range Interpretation Comments Anti-Double Strand DNA Antibody (test code = 5130-0) 3 0 -9 Negative <5 Equivocal 5 - 9 Positive > 9Performed at: [facility] [id number] b Director: Aba Brantley MD, Phone: [phone] Scott & White [facility] Center – Trophy Cluberum nuclear antibody titer by eohrgzxzlefdciktnf7629-63-52 05:50:00* Test Item Value Reference Range Interpretation Comments Anti-Nuclear Antibody Screen (test code = 5048-4) Positive [facility] Cluberum nuclear antibody pattern homogenous suolf3729-83-47 05:50:00* Test Item Value Reference Range Interpretation Comments Anti-Nuclear Ab Homogeneous Pattern (test code = 10569-1) 1:1280 [facility] AreaFluoroscopic procedure less than one hour nwomadpg3914-18-52 05:50:00* Test Item Value Reference Range Interpretation [...] Nucleosomes, Histones Drug-induced SL E Speckled Sm, LEGAL WORD PROCESSOR , SCL-70, SLE,MCTD,PSS (diffuse form), SS-A/SS-B Sjogrens --- -------- Nucleolar SCL-70, PM-1 /SCL High titers Scleroderma, PM/DM --- Centromere Centromere PSS (li mited form) w/Crest syndrome variable - Nuclear Dot Sp100,j09-autvxu Prima ry Biliary Cirrhosis Nuclear GP210, Primary Biliary Cirrhosis Membrane renetta A,B,C - Testing performed by:Jana Manuel [address] [place], [place] [id number]: Aba Brantley MD [facility] Cluberum or plasma rheumatoid factor measurement (units/volume)2019-11-30 05:50:00* Test Item Value Reference Range Interpretation Comments Rheumatoid Factor (test code = 28259-2) <10.0 0.0-13.9 Performed at: [facility] [address] [id number] Director: Aba Brantley MD, Phone: [phone] Christi [facility] Bay AreaFluoroscopic procedure less than one hour zdzfwbdt3119-56-35 05:50:00* Test Item Value Reference Range Interpretation [...] 4Negative Control PassedPositive Control PassedTe sting performed by:[address] [place], [place] [address] [phone]: Eric Nick [facility] Medical CenterManual blood eosinophil count as percentage of total iriifzqzpc6804-95-97 05:50:00* Test Item Value Reference Range Interpretation Comments Eosinophils % (Manual) (test code = 714-6) 1 0-7 [facility] AreaErythrocyte sedimentation rate by Westergren oisnls2519-37-59 05:50:00* Test Item Value Reference Range Interpretation Comments Erythrocyte Sedimentation Rate (test code = 4537-7) 87 0- 20 [facility] AreaFluoroscopic procedure less than one hour lcvwlfft6010-75-57 05:50:00* Test Item Value Reference Range Interpretation Comments Albumin (PEP) (test code = Albumin (PEP)) 3.0 2.9-4.4 [facility] Cluberum or plasma alpha 1 globulin measurement by electrophoresis (mass/volume)2019-11-30 05:50:00* Test Item Value Reference Range Interpretation Comments Vgeyu-9-Sycadewog (test code = 2865-4) 0.3 0.0-0.4 [facility] Cluberum or plasma alpha 2 globulin measurement by electrophoresis (mass/volume)2019-11-30 05:50:00* Test Item Value Reference Range Interpretation Comments Xvmxw-5-Fiahehkxb (test code = 2868-8) 0.7 0.4-1.0 [facility] Cluberum or plasma beta globulin measurement by electrophoresis (mass/volume)2019-11-30 05:50:00* Test Item Value Reference Range Interpretation Comments Beta Gamma Globulin (test code = 2871-2) 1.1 0.7-1.3 [facility] Club[facility]um or plasma gamma globulin measurement by electrophoresis (mass/volume)2019-11-30 05:50:00* Test Item Value Reference Range Interpretation Comments Gamma Globulins (test code = 2874-6) 3.9 0.4-1.8 [facility] Cluberum or plasma protein measurement (mass/volume)2019-11-30 05:50:00* Test Item Value Reference Range Interpretation Comments Total Protein (PEP) (test code = 2885-2) 9.0 6.0-8.5 [facility] Cluberum globulin measurement by calculation (mass/volume)2019-11-30 05:50:00* Test Item Value Reference Range Interpretation Comments Globulin (test code = 73163-9) 6.0 2.2-3.9 [facility] Cluber[facility] immunoglobulin kappa light chains measurement (mass/volume)2019-11-30 05:50:00* Test Item Value Reference Range Interpretation Comments Reagan Light Chain Analysis (test code = 16671-4) 236.5 3.3-1 9.4 [facility] Cluberum or plasma immunoglobulin free lambda light chains measurement (mass/volume)2019-11-30 05:50:00* Test Item Value Reference Range Interpretation Comments Lambda Light Chain Analysis (test code = 16972-5) 201.9 5.7- 26.3 [facility] Cluberum immunoglobulin kappa light chains/immunoglobulin lambda light chains mass afmcm1107-62-22 05:50:00* Test Item Value Reference Range Interpretation Comments Totl Reagan/Lambda Light Chain Ratio (test code = 06055-0) 1.17 0.26-1.65 Performed at: [facility] - [facility] [address] [id number] Director: Aba Brantley MD, Phone: [phone] at: DA - [facility] [address] [id number] Director: DEBRA Daniel MD, Phone: [phone] Scott & [facility] Cluberum or plasma protein monoclonal measurement by electrophoresis (mass/volume)2019-11-30 05:50:00* Test Item Value Reference Range Interpretation Comments Protein Electrophoresis M-Clay (test code = 59164-7) Not Observ ed Not Observed [facility] Cluberum or plasma albumin/globulin mass iuqgw1857-52-39 05:50:00* Test Item Value Reference Range Interpretation Comments Albumin/Globulin Ratio (test code = 1759-0) 0.5 0.7-1.7 [facility] AreaFluoroscopic procedure less than one hour mtcsffdm4632-42-40 05:50:00* Test Item Value Reference Range Interpretation Comments Protein Electrophoresis Note (test code = Protein Electropho resis Note) Comment . Protein electrophoresis scan will follow via computer,mail, or chemist assistant delivery. [facility] DNA double strand antibody assay (units/volume)2019-11-30 05:50:00* Test Item Value Reference Range Interpretation Comments Anti-Double Strand DNA Antibody (test code = 5130-0) 3 0 -9 Negative <5 Equivocal 5 - 9 Positive > 9Performed at: [facility] - [facility] [address] [place], [place] [id number] b Director: Aba Brantley MD, Phone: [phone] Scott & [facility] – Trophy Cluberum nuclear antibody titer by qkazhmoxprjtjogtdp1601-97-12 05:50:00* Test Item Value Reference Range Interpretation Comments Anti-Nuclear Antibody Screen (test code = 5048-4) Positive [facility] Club[facility]um nuclear antibody pattern homogenous rbiqz1307-79-74 05:50:00* Test Item Value Reference Range Interpretation Comments Anti-Nuclear Ab Homogeneous Pattern (test code = 59617-5) 1:1280 [facility] AreaFluoroscopic procedure less than one hour vumjrrgo3764-83-44 05:50:00* Test Item Value Reference Range Interpretation [...] Nucleosomes, Histones Drug-induced SL E Speckled Sm, LEGAL WORD PROCESSOR , SCL-70, SLE,MCTD,PSS (diffuse form), SS-A/SS-B Sjogrens --- -------- Nucleolar SCL-70, PM-1 /SCL High titers Scleroderma, PM/DM --- Centromere Centromere PSS (li mited form) w/Crest syndrome variable - Nuclear Dot Sp100,a38-ywircl Prima ry Biliary Cirrhosis Nuclear GP210, Primary Biliary Cirrhosis Membrane renetta A,B,C - Testing performed by:[facility] [address] [phone]: Aba Brantley MD [facility] Cluberum or plasma rheumatoid factor measurement (units/volume)2019-11-30 05:50:00* Test Item Value Reference Range Interpretation Comments Rheumatoid Factor (test code = 44890-9) <10.0 0.0-13.9 Performed at: [facility] - [facility] [address] [id number] Director: Aba Brantley MD, Phone: [phone] Christi [facility] Bay AreaFluoroscopic procedure less than one hour yjjouqxr2908-56-55 05:50:00* Test Item Value Reference Range Interpretation [...] 4Negative Control PassedPositive Control PassedTe sting performed by:[id number] [place], [place] [address] [phone]: Eric Nick [facility] CenterUrine immunofixation bkelbpiycwznml8202-38-51 13:57:00* Test Item Value Reference Range Interpretation Comments Urine Immunofixation (test code = 035781627) Note: . Immunofixation shows IgG monoclonal protein with no confirmedlight chain associa tion, which is suggestive of Heavy ChainDisease. Recommend retesting in -.Performed at: [facility] [facility] [facility] [address], [place] [address]Lab Director: DEBRA Daniel MD, Phone: [phone] Christi Medical Center Bay AreaUrine protein measurement (mass/volume)2019-11-29 13:57:00* Test Item Value Reference Range Interpretation Comments Urine Protein (test code = 2888-6) 6.0 Not Estab. [facility]24 hour urine albumin/total protein ratio by nzizwzmtkppeyym9381-00-04 13:57:00* Test Item Value Reference Range Interpretation Comments Urine Albumin (test code = 04726-4) 41.0 . [facility] hour urine alpha 1 globulin/total protein by tqqhawjtoajhitr9700-33-18 13:57:00* Test Item Value Reference Range Interpretation Comments Urine Txgcm-9-Weuedcsp (test code = 00798-4) 4.6 . [facility]24 hour urine alpha 2 globulin/total protein by szrqiubkanzufht1191-38-99 13:57:00* Test Item Value Reference Range Interpretation Comments Urine Xwdxz-7-Zupcolfjf (test code = 51356-7) 8.5 . [facility]24 hour urine beta globulin/total protein ratio by ikysxvhgzokxpem6054-35-74 13:57:00* Test Item Value Reference Range Interpretation Comments Urine Beta Globulin (test code = 19321-0) 19.9 . [facility] hour urine gamma globulin/total protein ratio by ivfktyqcpzvowhy9090-11-97 13:57:00* Test Item Value Reference Range Interpretation Comments Urine Gamma Globulin (test code = 86844-7) 26.0 . [facility] AreaUrine protein monoclonal/total protein by jzdcobdlxkykqqh8578-69-42 13:57:00* Test Item Value Reference Range Interpretation Comments Urine Random PEP M-Clay % (test code = 39224-3) Not Observed Not O bserved [facility] AreaFluoroscopic procedure less than one hour udqjsege2084-65-27 13:57:00* Test Item Value Reference Range Interpretation Comments Protein Electrophoresis Note (test code = Protein Electropho resis Note) Comment . Protein electrophoresis scan will follow via computer,mail, or chemist assistant delivery. Performed at: [facility] [id number] Director: Aba Brantley MD, Phone: [phone] at: [employer] [id number] Director: DEBRA Daniel MD, Phone: [phone] Christi Medical Center Bay AreaUrine immunofixation hqvoazjstgxozh4213-55-83 13:57:00* Test Item Value Reference Range Interpretation Comments Urine Immunofixation (test code = 023726115) Note: . Immunofixation shows IgG monoclonal protein with no confirmedlight chain associa tion, which is suggestive of Heavy ChainDisease. Recommend retesting in 6-10 wee ks.Performed at: [employer] [id number]Lab Director: DEBRA Daniel MD, Phone: [phone] Christi Medical Center Bay AreaUrine protein measurement (mass/volume)2019-11-29 13:57:00* Test Item Value Reference Range Interpretation Comments Urine Protein (test code = 2888-6) 6.0 Not Estab. [facility]24 hour urine albumin/total protein ratio by ixfjjsodlpcyhcc3573-26-49 13:57:00* Test Item Value Reference Range Interpretation Comments Urine Albumin (test code = 90972-8) 41.0 . [facility]24 hour urine alpha 1 globulin/total protein by nnwbkihynwedfff3155-56-78 13:57:00* Test Item Value Reference Range Interpretation Comments Urine Pxipu-8-Mctiaqdd (test code = 80723-9) 4.6 . [facility] hour urine alpha 2 globulin/total protein by rfihuzbbehpyguf1914-49-42 13:57:00* Test Item Value Reference Range Interpretation Comments Urine Bdjde-0-Nalensnin (test code = 60735-5) 8.5 . [facility]24 hour urine beta globulin/total protein ratio by heilqqgaxgofgyt4938-01-89 13:57:00* Test Item Value Reference Range Interpretation Comments Urine Beta Globulin (test code = 01193-2) 19.9 . [facility] hour urine gamma globulin/total protein ratio by khykthoveoyyraa2110-92-99 13:57:00* Test Item Value Reference Range Interpretation Comments Urine Gamma Globulin (test code = 73199-0) 26.0 . [facility] AreaUrine protein monoclonal/total protein by csgwdztzbdvcfst0831-02-25 13:57:00* Test Item Value Reference Range Interpretation Comments Urine Random PEP M-Clay % (test code = 37305-1) Not Observed Not O bserved [facility] AreaFluoroscopic procedure less than one hour egclpfhc0307-55-48 13:57:00* Test Item Value Reference Range Interpretation Comments Protein Electrophoresis Note (test code = Protein Electropho resis Note) Comment . Protein electrophoresis scan will follow via computer,mail, or chemist assistant delivery. Performed at: [address] [id number] Director: Aba Brantley MD, Phone: [phone] at: [facility] - [facility] [address]ar[address] [facility] [facility] [address], [place], [place] [id number] Director: DEBRA Daniel MD, Phone: [phone] Christi Medical Center Bay AreaInfluenza Virus Types A,B Azfnivd5954-50-30 06:47:00* Test Item Value Reference Range Interpretation Comments Influenza Virus Types A,B Antigen (test code = 58601-3) NEGATIVE NEGATIVE [facility] Club[facility]um or plasma HIV 1 RNA viral load by probe and target amplification method (number/volume)2019-11-29 06:45:00* Test Item Value Reference Range Interpretation Comments HIV-1 RNA, Quantitative copies/mL (test code = 52399-7) <20 . HIV-1 RNA not detectedThe reportable range for this assay is 20 to 10,000,000cop ies HIV-1 RNA/mL.[facility] Cluberum or plasma HIV 1 RNA viral load by probe and target amplification method (number/volume) 2019-11-29 06:45:00* Test Item Value Reference Range Interpretation Comments HIV-1 RNA, Quantitative copies/mL (test code = 82022-8) <20 . HIV-1 RNA not detectedThe reportable range for this assay is 20 to 10,000,000cop ies HIV-1 RNA/mL.[facility] AreaChlamydia pneumoniae DNA (PCR)2019-11-29 05:35:00* Test Item Value Reference Range Interpretation Comments Chlamydia pneumoniae DNA (PCR) (test code = Chlamydia pneumoniae DNA (PCR)) NOT DETECTED NOT DETECT Test performed at [facility] [place] [address]RESULTS HAVE BEEN CALLED TO THE PHYSICIANCorpus Christi Medical Center [facility] AreaInfluenza Type A (RT-PCR)2019-11-29 05:35:00* Test Item Value Reference Range Interpretation Comments Influenza Type A (RT-PCR) (test code = 287105444) NOT DETECTED NOT DETECT [facility] AreaMycoplasma pneumoniae (PCR)2019-11-29 05:35:00* Test Item Value Reference Range Interpretation Comments Mycoplasma pneumoniae (PCR) (test code = Mycoplasma pn eumoniae (PCR)) NOT DETECTED NOT DETECT [facility] AreaInfluenza Type B (RT-PCR)2019-11-29 05:35:00* Test Item Value Reference Range Interpretation Comments Influenza Type B (RT-PCR) (test code = 021014701) NOT DETECTED NOT DETECT [facility] AreaRespiratory Syncytial Virus (PCR) 2019-11-29 05:35:00* Test Item Value Reference Range Interpretation Comments Respiratory Syncytial Virus (PCR) (test code = 424868268) NO T DETECTED NOT DETECT [facility] AreaBordetella pertussis DNA (PCR)2019-11-29 05:35:00* Test Item Value Reference Range Interpretation Comments Bordetella pertussis DNA (PCR) (test code = 848634141) NOT DETEC RONA NOT DETECT [facility] AreaParainfluenza Type 1 (PCR)2019-11-29 05:35:00* Test Item Value Reference Range Interpretation Comments Parainfluenza Type 1 (PCR) (test code = 339284482) NOT DETECTED NOT DETECT [facility] AreaParainfluenza Type 2 (PCR)2019-11-29 05:35:00* Test Item Value Reference Range Interpretation Comments Parainfluenza Type 2 (PCR) (test code = 264888124) NOT DETECTED NOT DETECT [facility] AreaParainfluenza Type 3 (PCR)2019-11-29 05:35:00* Test Item Value Reference Range Interpretation Comments Parainfluenza Type 3 (PCR) (test code = 872338571) NOT DETECTED NOT DETECT [facility] AreaParainfluenza Type 4 (PCR)2019-11-29 05:35:00* Test Item Value Reference Range Interpretation Comments Parainfluenza Type 4 (PCR) (test code = Parainfluenza Type 4 (PCR)) NOT DETECTED NOT DETECT [facility] AreaRhinovirus (PCR)2019-11-29 05:35:00* Test Item Value Reference Range Interpretation Comments Rhinovirus (PCR) (test code = 821586023) NOT DETECTED NOT DETECT [facility] AreaHuman Metapneumovirus (PCR)2019-11-29 05:35:00* Test Item Value Reference Range Interpretation Comments Human Metapneumovirus (PCR) (test code = 572847942) DETECTED NO T DETECT ABNORMALCorpus Christi Medical Center Bay AreaAdenovirus (PCR)2019-11-29 05:35:00* Test Item Value Reference Range Interpretation Comments Adenovirus (PCR) (test code = 887084964) NOT DETECTED NOT DETECT [facility] AreaCoronavirus Type HKU1 (PCR)2019-11-29 05:35:00* Test Item Value Reference Range Interpretation Comments Coronavirus Type HKU1 (PCR) (test code = Coronavirus T ype HKU1 (PCR)) NOT DETECTED NOT DETECT [facility] AreaCoronavirus Type NL63 (PCR)2019-11-29 05:35:00* Test Item Value Reference Range Interpretation Comments Coronavirus Type NL63 (PCR) (test code = Coronavirus T ype NL63 (PCR)) NOT DETECTED NOT DETECT [facility] AreaCoronavirus Type OC43 (PCR)2019-11-29 05:35:00* Test Item Value Reference Range Interpretation Comments Coronavirus Type OC43 (PCR) (test code = Coronavirus T ype OC43 (PCR)) NOT DETECTED NOT DETECT [facility] AreaCoronavirus Type 229E (PCR)2019-11-29 05:35:00* Test Item Value Reference Range Interpretation Comments Coronavirus Type 229E (PCR) (test code = Coronavirus T ype 229E (PCR)) NOT DETECTED NOT DETECT Test performed at [place] [address]RESULTS HAVE BEEN CALLED TO THE [facility] CenterInfluenza virus A and B antigen identification by immunofluorescence 2019-11-29 05:28:00* Test Item Value Reference Range Interpretation Comments Influenza Virus Types A,B Antigen (test code = 78811-7) NEGATIVE NEGATIVE [facility] AreaInfluenza virus A and B antigen identification by aaqbseumoikuiwlemc0108-90-43 05:28:00* Test Item Value Reference Range Interpretation Comments Influenza Virus Types A,B Antigen (test code = 80864-4) NEGATIVE NEGATIVE [facility] AreaHIV (1&2) Sgcaxsuu2648-30-29 17:15:00* Test Item Value Reference Range Interpretation Comments HIV (1&2) Antibody (test code = 47644-5) NON-REACTIVE NONREACTIVE [facility] AreaHIV P24 Iuccvse7802-48-42 17:15:00* Test Item Value Reference Range Interpretation Comments HIV P24 Antigen (test code = HIV P24 Antigen) NON-REACTIVE NONREACT SHAVON [facility] AreaHIV 1 and 2 antibody detection qualitative by rapid reifokwtydk8974-66-55 16:00:00* Test Item Value Reference Range Interpretation Comments HIV (1&2) Antibody (test code = 60324-9) NON-REACTIVE NONREACTIVE [facility] AreaFluoroscopic procedure less than one hour xearltop8684-63-66 16:00:00* Test Item Value Reference Range Interpretation Comments HIV P24 Antigen (test code = HIV P24 Antigen) NON-REACTIVE NONREACT SHAVON [facility] 2 antibody detection qualitative by rapid dncuxpfrmtc3082-77-01 16:00:00* Test Item Value Reference Range Interpretation Comments HIV (1&2) Antibody (test code = 53471-1) NON-REACTIVE NONREACTIVE [facility] AreaFluoroscopic procedure less than one hour lrclfqge2088-42-46 16:00:00* Test Item Value Reference Range Interpretation Comments HIV P24 Antigen (test code = HIV P24 Antigen) NON-REACTIVE NONREACT SHAVON [facility] AreaTotal Ycdkgrgwb2726-99-31 08:33:00* Test Item Value Reference Range Interpretation Comments Total Bilirubin (test code = 1975-2) 0.4 0.2-1.2 [facility] AreaAspartate Amino Transf (AST/SGOT) 2019-11-28 08:33:00* Test Item Value Reference Range Interpretation Comments Aspartate Amino Transf (AST/SGOT) (test code = Aspartate Amino Transf (AST/SGOT)) 53 5-34 H [facility] AreaAlanine Aminotransferase (ALT/SGPT) 2019-11-28 08:33:00* Test Item Value Reference Range Interpretation Comments Alanine Aminotransferase (ALT/SGPT) (test code = 1742-6) 36 0-55 [facility] AreaTotal Sfexdhm0956-99-75 08:33:00* Test Item Value Reference Range Interpretation Comments Total Protein (test code = 2885-2) 9.2 6.5-8.1 H [facility] AreaAlbumin2020-03-21 08:33:00* Test Item Value Reference Range Interpretation Comments Albumin (test code = 1751-7) 3.0 3.5-5.0 L [facility] AreaGlobulin2020-03-21 08:33:00* Test Item Value Reference Range Interpretation Comments Globulin (test code = 84293-6) 6.2 2.3-3.5 H [facility] AreaAlbumin/Globulin Vjcgb3341-52-79 08:33:00 * Test Item Value Reference Range Interpretation Comments Albumin/Globulin Ratio (test code = 1759-0) 0.5 0.8-2.0 L [facility] AreaAlkaline Mvyafqfngjo8393-81-63 08:33:00* Test Item Value Reference Range Interpretation Comments Alkaline Phosphatase (test code = 6768-6) 18 40-150 L [facility] AreaNeutrophils (%) (Auto)2019-11-28 07:52:00 * Test Item Value Reference Range Interpretation Comments Neutrophils (%) (Auto) (test code = 30728-2) 49.8 38.7-80.0 [facility] AreaLymphocytes (%) (Auto)2019-11-28 07:52:00 * Test Item Value Reference Range Interpretation Comments Lymphocytes (%) (Auto) (test code = 736-9) 45.3 18.0-39.1 H [facility] AreaMonocytes (%) (Auto)2019-11-28 07:52:00* Test Item Value Reference Range Interpretation Comments Monocytes (%) (Auto) (test code = 5905-5) 4.3 4.4-11.3 L [facility] AreaEosinophils (%) (Auto)2019-11-28 07:52:00 * Test Item Value Reference Range Interpretation Comments Eosinophils (%) (Auto) (test code = 713-8) 0.0 0.0-6.0 [facility] AreaBasophils (%) (Auto)2019-11-28 07:52:00* Test Item Value Reference Range Interpretation Comments Basophils (%) (Auto) (test code = 706-2) 0.3 0.0-1.0 [facility] AreaIM GRANULOCYTES %2019-11-28 07:52:00* Test Item Value Reference Range Interpretation Comments IM GRANULOCYTES % (test code = IM GRANULOCYTES %) 0.3 0.0- 1.0 [facility] AreaNeutrophils # (Auto)2019-11-28 07:52:00* Test Item Value Reference Range Interpretation Comments Neutrophils # (Auto) (test code = 751-8) 1.9 2.1-6.9 L [facility] AreaLymphocytes # (Auto)2019-11-28 07:52:00* Test Item Value Reference Range Interpretation Comments Lymphocytes # (Auto) (test code = 31416-6) 1.7 1.0-3.2 [facility] AreaMonocytes # (Auto)2019-11-28 07:52:00* Test Item Value Reference Range Interpretation Comments Monocytes # (Auto) (test code = 742-7) 0.2 0.2-0.8 [facility] AreaEosinophils # (Auto)2019-11-28 07:52:00* Test Item Value Reference Range Interpretation Comments Eosinophils # (Auto) (test code = 711-2) 0.0 0.0-0.4 [facility] AreaBasophils # (Auto)2019-11-28 07:52:00* Test Item Value Reference Range Interpretation Comments Basophils # (Auto) (test code = 704-7) 0.0 0.0-0.1 [facility] AreaAbsolute Immature Granulocyte (auto 2019-11-28 07:52:00* Test Item Value Reference Range Interpretation Comments Absolute Immature Granulocyte (auto (dana t code = Absolute Immature Granulocyte (auto) 0.01 0-0.1 [facility] Trophy Clubodium Gmafi2586-52-29 07:22:00* Test Item Value Reference Range Interpretation Comments Sodium Level (test code = 2951-2) 133 136-145 L [facility] AreaPotassium Lhqwu0942-96-38 07:22:00* Test Item Value Reference Range Interpretation Comments Potassium Level (test code = 2823-3) 4.2 3.5-5.1 [facility] AreaChloride Suhlf3207-29-15 07:22:00* Test Item Value Reference Range Interpretation Comments Chloride Level (test code = 2075-0) 104 98-107 [facility] AreaCarbon Dioxide Mdpgc3786-33-07 07:22:00* Test Item Value Reference Range Interpretation Comments Carbon Dioxide Level (test code = 2028-9) 24 22-29 [facility] AreaAnion Vki6527-13-07 07:22:00* Test Item Value Reference Range Interpretation Comments Anion Gap (test code = 34602-3) 9.2 8-16 [facility] AreaBlood Urea Cjyymxsz1454-20-38 07:22:00* Test Item Value Reference Range Interpretation Comments Blood Urea Nitrogen (test code = 3094-0) 10 7-26 [facility] AreaCreatinine2020-03-21 07:22:00* Test Item Value Reference Range Interpretation Comments Creatinine (test code = 2160-0) 0.83 0.57-1.11 [facility] AreaBUN/Creatinine Zioql4105-38-11 07:22:00* Test Item Value Reference Range Interpretation Comments BUN/Creatinine Ratio (test code = 3097-3) 12 6-25 [facility] AreaEstimat Glomerular Filtration Rate 2019-11-28 07:22:00* Test Item Value Reference Range Interpretation Comments Estimat Glomerular Filtration Rate (test code = 348342597) > 60 >60 Ranges were taken from the National Kidney Disease Education Program and the [facility] literature.Reference ranges:60 or greater: Jtcncc22-67 ( for 3 consecutive months): Chronic kidney disease 15 or less: Kidney failureCorpus Christi Medical Center Bay AreaGlucose Egljn4370-06-75 07:22:00* Test Item Value Reference Range Interpretation Comments Glucose Level (test code = KCW7781) 94 74-118 [facility] AreaCalcium Iwgnc6315-97-35 07:22:00* Test Item Value Reference Range Interpretation Comments Calcium Level (test code = 72643-7) 8.2 8.4-10.2 L [facility] AreaHemoglobin A1c Dekrdfi8503-54-16 07:22:00 * Test Item Value Reference Range Interpretation Comments Hemoglobin A1c Percent (test code = Hemoglobin A1c Percent) 5.1 4.0-7.0 [facility] AreaMagnesium Mwgvh4100-52-41 07:22:00* Test Item Value Reference Range Interpretation Comments Magnesium Level (test code = 46133-2) 2.0 1.3-2.1 [facility] AreaTriglycerides Yfxdj7437-03-41 07:22:00* Test Item Value Reference Range Interpretation Comments Triglycerides Level (test code = 2571-8) 90 0-149 [facility] AreaCholesterol Dzgwj7009-57-94 07:22:00* Test Item Value Reference Range Interpretation Comments Cholesterol Level (test code = 2093-3) 78 0-199 Less than 200 mg/dL Low Bhvr620 - 239 mg/dL Borderline Bqlf026 m g/dl and greater High Risk [facility] AreaLDL Zkexjlzcske2298-11-83 07:22:00* Test Item Value Reference Range Interpretation Comments LDL Cholesterol (test code = 2089-1) 44 60-130 L [facility] AreaHDL Lyooopwxbxz0645-66-09 07:22:00* Test Item Value Reference Range Interpretation Comments HDL Cholesterol (test code = 2085-9) 16 40-60 L [facility] AreaCholesterol/HDL Tjsel5899-17-45 07:22:00 * Test Item Value Reference Range Interpretation Comments Cholesterol/HDL Ratio (test code = 9830-1) 4.9 3.0-3.6 H [facility] AreaFluoroscopic procedure less than one hour kcpkdglm2902-31-18 06:24:00* Test Item Value Reference Range Interpretation Comments Hemoglobin A1c Percent (test code = Hemoglobin A1c Percent) 5.1 4.0-7.0 [facility] Cluberum or plasma magnesium measurement (mass/volume)2019-11-28 06:24:00* Test Item Value Reference Range Interpretation Comments Magnesium Level (test code = 63041-8) 2.0 1.3-2.1 [facility] Cluberum or plasma triglyceride measurement (mass/volume)2019-11-28 06:24:00* Test Item Value Reference Range Interpretation Comments Triglycerides Level (test code = 2571-8) 90 0-149 [facility] Cluberum or plasma cholesterol measurement (mass/volume)2019-11-28 06:24:00* Test Item Value Reference Range Interpretation Comments Cholesterol Level (test code = 2093-3) 78 0-199 Less than 200 mg/dL Low Cyxp820 - 239 mg/dL Borderline Nyca763 m g/dl and greater High Risk [facility] Cluberum or plasma cholesterol in LDL measurement (mass/volume) 2019-11-28 06:24:00* Test Item Value Reference Range Interpretation Comments LDL Cholesterol (test code = 2089-1) 44 60-130 [facility] Cluberum or plasma cholesterol in HDL measurement (mass/volume)2019-11-28 06:24:00* Test Item Value Reference Range Interpretation Comments HDL Cholesterol (test code = 2085-9) 16 40-60 [facility] Cluberum or plasma total cholesterol/cholesterol in HDL mass cjwrj9493-04-73 06:24:00* Test Item Value Reference Range Interpretation Comments Cholesterol/HDL Ratio (test code = 9830-1) 4.9 3.0-3.6 [facility] Cluberum or plasma magnesium measurement (mass/volume)2019-11-28 06:24:00* Test Item Value Reference Range Interpretation Comments Magnesium Level (test code = 74962-0) 2.0 1.3-2.1 [facility] AreaFluoroscopic procedure less than one hour eikcjwkg3006-86-28 22:17:00* Test Item Value Reference Range Interpretation Comments Chlamydia pneumoniae DNA (PCR) (test code = Chlamydia pneumoniae DNA (PCR)) NOT DETECTED NOT DETECT Test performed at [facility] [place], [place] [address]RESULTS HAVE BEEN [facility]ED [facility] THE [facility] lsgdy2877-78-64 22:17:00* Test Item Value Reference Range Interpretation Comments Influenza Type A (RT-PCR) (test code = 122536243) NOT DETECTED NOT DETECT [facility]Flu[facility] procedure less than one hour dqkvfsju1454-99-84 22:17:00* Test Item Value Reference Range Interpretation Comments Mycoplasma pneumoniae (PCR) (test code = Mycoplasma pn eumoniae (PCR)) NOT DETECTED NOT DETECT [facility] ResourcesRes[facility] virus gdanu6372-83-78 22:17:00* Test Item Value Reference Range Interpretation Comments Influenza Type B (RT-PCR) (test code = 773439998) NOT DETECTED NOT DETECT [facility] pgtfu4853-10-93 22:17:00* Test Item Value Reference Range Interpretation Comments Respiratory Syncytial Virus (PCR) (test code = 991910368) NO T DETECTED NOT DETECT [facility] virus krrjx0969-20-20 22:17:00* Test Item Value Reference Range Interpretation Comments Bordetella pertussis DNA (PCR) (test code = 980361487) NOT DETEC RONA NOT DETECT [facility] virus mwpgq0357-51-00 22:17:00* Test Item Value Reference Range Interpretation Comments Parainfluenza Type 1 (PCR) (test code = 086122817) NOT DETECTED NOT DETECT [facility] xzpmz7825-90-62 22:17:00* Test Item Value Reference Range Interpretation Comments Parainfluenza Type 2 (PCR) (test code = 927968088) NOT DETECTED NOT DETECT [facility]Res[facility] virus aqlyb4577-21-96 22:17:00* Test Item Value Reference Range Interpretation Comments Parainfluenza Type 3 (PCR) (test code = 041878535) NOT DETECTED NOT DETECT [facility] ResourcesFluoroscopic procedure less than one hour jdytoxhp4564-36-35 22:17:00* Test Item Value Reference Range Interpretation Comments Parainfluenza Type 4 (PCR) (test code = Parainfluenza Type 4 (PCR)) NOT DETECTED NOT DETECT [facility] ResourcesRes[facility] virus igrat6029-78-17 22:17:00* Test Item Value Reference Range Interpretation Comments Rhinovirus (PCR) (test code = 270511882) NOT DETECTED NOT DETECT [facility] AreaRespiratory virus qvggu0973-75-39 22:17:00* Test Item Value Reference Range Interpretation Comments Human Metapneumovirus (PCR) (test code = 468177294) DETECTED NO T DETECT ABNORMALCHI [facility]anoRespiratory virus mnumz7099-13-42 22:17:00* Test Item Value Reference Range Interpretation Comments Adenovirus (PCR) (test code = 028966986) NOT DETECTED NOT DETECT [facility] AreaFluoroscopic procedure less than one hour ktiqgspg6217-24-44 22:17:00* Test Item Value Reference Range Interpretation Comments Coronavirus Type 229E (PCR) (test code = Coronavirus T ype 229E (PCR)) NOT DETECTED NOT DETECT Test performed at [place] [address]RESULTS HAVE BEEN CALLED TO THE [facility] AreaFluoroscopic procedure less than one hour gtwancnr4493-07-53 22:17:00* Test Item Value Reference Range Interpretation Comments Coronavirus Type HKU1 (PCR) (test code = Coronavirus T ype HKU1 (PCR)) NOT DETECTED NOT DETECT [facility] AreaFluoroscopic procedure less than one hour oxyhduyq4951-78-16 22:17:00* Test Item Value Reference Range Interpretation Comments Coronavirus Type NL63 (PCR) (test code = Coronavirus T ype NL63 (PCR)) NOT DETECTED NOT DETECT [facility] AreaFluoroscopic procedure less than one hour jblpdcnk2763-94-39 22:17:00* Test Item Value Reference Range Interpretation Comments Coronavirus Type OC43 (PCR) (test code = Coronavirus T ype OC43 (PCR)) NOT DETECTED NOT DETECT [facility] AreaFluoroscopic procedure less than one hour gjxbmgzm7283-02-96 22:17:00* Test Item Value Reference Range Interpretation Comments Coronavirus (PCR) (test code = Coronavirus (PCR)) NOT DETECTED NOTD ETECTED CORONAVIRUS TZLW-AYD-2-RT-PCR (RESPIRATORY)This test has been validated but FDA' s independent review of the validation is pending. This test is performed as a l aboratory developed test; independent review of the validation under FDA's Emerg ency Use Authorization (EUA) authority will be performed according to current [facility] requirements.We will continue to follow federal and state requirements fo r both notification of results and confirmatory testing that is required by anot her agency.This test was developed and its performance characteristics determine d by [employer]. It has not been cleared or approved by the U.S. Food and Drug Administration. Results should be used in conjunction with clinical finding s, and should not form the sole basis for a diagnosis or treatment decision.Spec imen sent to [facility] and performed at [place], [address] [place] [address]. [address]MZSCorp[facility] AreaFluoroscopic procedure less than one hour mofdodwp9618-91-96 22:17:00* Test Item Value Reference Range Interpretation Comments Chlamydia pneumoniae DNA (PCR) (test code = Chlamydia pneumoniae DNA (PCR)) NOT DETECTED NOT DETECT Test performed at [facility] [place], [place] [address]RESULTS HAVE BEEN CALLED TO THE [facility] CenterRespiratory virus wnxym1716-03-86 22:17:00* Test Item Value Reference Range Interpretation Comments Influenza Type A (RT-PCR) (test code = 366816676) NOT DETECTED NOT DETECT [facility] AreaFluoroscopic procedure less than one hour egantzjx1922-07-51 22:17:00* Test Item Value Reference Range Interpretation Comments Mycoplasma pneumoniae (PCR) (test code = Mycoplasma pn eumoniae (PCR)) NOT DETECTED NOT DETECT [facility] AreaRespiratory virus gipmi1162-97-66 22:17:00* Test Item Value Reference Range Interpretation Comments Influenza Type B (RT-PCR) (test code = 361275486) NOT DETECTED NOT DETECT [facility] AreaRespiratory virus hings0033-56-64 22:17:00* Test Item Value Reference Range Interpretation Comments Respiratory Syncytial Virus (PCR) (test code = 104574877) NO T DETECTED NOT DETECT [facility] AreaRespiratory virus ypseh8127-07-68 22:17:00* Test Item Value Reference Range Interpretation Comments Bordetella pertussis DNA (PCR) (test code = 702419648) NOT DETEC RONA NOT DETECT [facility] qdzuj5099-16-22 22:17:00* Test Item Value Reference Range Interpretation Comments Parainfluenza Type 1 (PCR) (test code = 809315357) NOT DETECTED NOT DETECT [facility] AreaRespiratory virus mdwui6296-58-08 22:17:00* Test Item Value Reference Range Interpretation Comments Parainfluenza Type 2 (PCR) (test code = 815462039) NOT DETECTED NOT DETECT [facility] virus ftidb3145-11-00 22:17:00* Test Item Value Reference Range Interpretation Comments Parainfluenza Type 3 (PCR) (test code = 789926757) NOT DETECTED NOT DETECT [facility] AreaFluoroscopic procedure less than one hour roazdcqf8374-93-07 22:17:00* Test Item Value Reference Range Interpretation Comments Parainfluenza Type 4 (PCR) (test code = Parainfluenza Type 4 (PCR)) NOT DETECTED NOT DETECT [facility] AreaRespiratory virus blrbs7677-46-47 22:17:00* Test Item Value Reference Range Interpretation Comments Rhinovirus (PCR) (test code = 087186985) NOT DETECTED NOT DETECT [facility] AreaRespiratory virus gdlwa9131-86-65 22:17:00* Test Item Value Reference Range Interpretation Comments Human Metapneumovirus (PCR) (test code = 448256384) DETECTED NO T DETECT ABNORMALCorpus Christi [facility] AreaRespiratory virus huwhp6180-51-58 22:17:00* Test Item Value Reference Range Interpretation Comments Adenovirus (PCR) (test code = 037018718) NOT DETECTED NOT DETECT [facility] AreaFluoroscopic procedure less than one hour mqdzackg0637-99-16 22:17:00* Test Item Value Reference Range Interpretation Comments Coronavirus Type 229E (PCR) (test code = Coronavirus T ype 229E (PCR)) NOT DETECTED NOT DETECT Test performed at [facility] [place], [place] [address]RESULTS HAVE BEEN CALLED TO THE [facility]IANCorp[facility] AreaFluoroscopic procedure less than one hour dzbjmrhb2549-63-00 22:17:00* Test Item Value Reference Range Interpretation Comments Coronavirus Type HKU1 (PCR) (test code = Coronavirus T ype HKU1 (PCR)) NOT DETECTED NOT DETECT [facility] AreaFluoroscopic procedure less than one hour ovdnwyda6341-92-81 22:17:00* Test Item Value Reference Range Interpretation Comments Coronavirus Type NL63 (PCR) (test code = Coronavirus T ype NL63 (PCR)) NOT DETECTED NOT DETECT [facility] AreaFluoroscopic procedure less than one hour cjugroif7756-51-16 22:17:00* Test Item Value Reference Range Interpretation Comments Coronavirus Type OC43 (PCR) (test code = Coronavirus T ype OC43 (PCR)) NOT DETECTED NOT DETECT [facility] AreaPlatelet Owsihbiv3192-23-39 21:06:00* Test Item Value Reference Range Interpretation Comments Platelet Estimate (test code = 69054-5) ADEQUATE [facility] AreaPlatelet Morphology Duwwjdh4690-29-77 21:06:00* Test Item Value Reference Range Interpretation Comments Platelet Morphology Comment (test code = 30015-2) NORMAL [facility] AreaHypochromasia2020-03-20 21:06:00* Test Item Value Reference Range Interpretation Comments Hypochromasia (test code = 728-6) SLIGHT [facility] AreaAnisocytosis2020-03-20 21:06:00* Test Item Value Reference Range Interpretation Comments Anisocytosis (test code = 702-1) SLIGHT [facility] AreaRed Cell Morphology Lfqroct5951-09-73 21:06:00* Test Item Value Reference Range Interpretation Comments Red Cell Morphology Comment (test code = 6742-1) NORMAL [facility] AreaCT CHEST F6442-35-82 20:40:00 [facility] [address] [place] [address] Patient Name: CHRISTINE OTTO MR #: [id number] : 1990 Age/Sex: 29/F Req #: [id number] [facility] Physician: Ordered by: ERIC KWAN NP Report #: [id number] Location: ER Room/Bed: Procedure: CT/CT CHEST W [...] opacities in the upper and lower lobes elmo aterally, with dense consolidation seen in the [...] COPY TO: ERIC KWAN NP Lactic Acid Uiwhg5000-48-49 20:37:00* Test Item Value Reference Range Interpretation Comments Lactic Acid Level (test code = Lactic Acid Level) 0.7 0.5- 2.0 [facility] AreaGroup A Streptococcus Cteztf6013-31-59 20:28:00* Test Item Value Reference Range Interpretation Comments Group A Streptococcus Screen (test code = 91920-1) NEGATIVE NEG ATIVE [facility] Clubtreptococcus pyogenes antigen detection in izxual0244-95-22 20:10:00* Test Item Value Reference Range Interpretation Comments Group A Streptococcus Screen (test code = 10578-3) NEGATIVE NEG ATIVE [facility] Clubtreptococcus pyogenes antigen detection in kyaldd3914-34-14 20:10:00* Test Item Value Reference Range Interpretation Comments Group A Streptococcus Screen (test code = 16225-9) NEGATIVE NEG ATIVE [facility] AreaFluoroscopic procedure less than one hour lqfomhuy6620-46-63 19:37:00* Test Item Value Reference Range Interpretation Comments Lactic Acid Level (test code = Lactic Acid Level) 0.7 0.5- 2.0 [facility] AreaFluoroscopic procedure less than one hour zormnvog0879-25-95 19:37:00* Test Item Value Reference Range Interpretation Comments Lactic Acid Level (test code = Lactic Acid Level) 0.7 0.5- 2.0 [facility] AreaHuman Chorionic Gonadotropin, Qual 2019-11-27 19:22:00* Test Item Value Reference Range Interpretation Comments Human Chorionic Gonadotropin, Qual (test code = 2118-8) NEGATIVE NEGATIVE [facility] AreaTroponin E5316-22-99 19:19:00* Test Item Value Reference Range Interpretation Comments Troponin I (test code = UUS4296) 0.034 0-0.300 [facility] AreaB-Type Natriuretic Mnlmkkt1364-14-30 19:18:00* Test Item Value Reference Range Interpretation Comments B-Type Natriuretic Peptide (test code = 24658-4) 14.3 0-100 [facility] AreaBlood msmclep2877-40-63 18:27:00* Test Item Value Reference Range Interpretation Comments Blood Culture (test code = 21679886) NO GROWTH AFTER 5 DAYS, FINAL REPORT [facility] AreaBlm[facility] frlkkiz2622-34-20 18:27:00* Test Item Value Reference Range Interpretation Comments Blood Culture (test code = 10364535) NO GROWTH AFTER 5 DAYS, FINAL REPORT [facility] platelets count by estimate (number/volume)2019-11-27 18:26:00* Test Item Value Reference Range Interpretation Comments Platelet Estimate (test code = 31287-3) ADEQUATE [facility] AreaPlatelet gydvnptzih0851-03-75 18:26:00* Test Item Value Reference Range Interpretation Comments Platelet Morphology Comment (test code = 02151-9) NORMAL [facility] AreaBlmarshall regional medical center hypochromia detection by light qsulsqntkz8662-56-28 18:26:00* Test Item Value Reference Range Interpretation Comments Hypochromasia (test code = 728-6) SLIGHT [facility] AreaBlood anisocytosis detection by light rpjivvrnip7900-68-68 18:26:00* Test Item Value Reference Range Interpretation Comments Anisocytosis (test code = 702-1) SLIGHT [facility] AreaRB sjpglsuzia3699-95-49 18:26:00* Test Item Value Reference Range Interpretation Comments Red Cell Morphology Comment (test code = 6742-1) NORMAL [facility]-iOsl4204-63-63 18:26:00* Test Item Value Reference Range Interpretation Comments B-Type Natriuretic Peptide (test code = 72241-5) 14.3 0-100 [facility] AreaTroponin I measurement by highly sensitive enzyme grurhejjccx7520-14-05 18:26:00* Test Item Value Reference Range Interpretation Comments Troponin I (test code = 25467-9) 0.034 0-0.300 [facility] Cluberum or plasma choriogonadotropin ( test) lasgpyadr2411-85-43 18:26:00* Test Item Value Reference Range Interpretation Comments Human Chorionic Gonadotropin, Qual (test code = 2118-8) NEGATIVE NEGATIVE [facility]-bEls8026-39-22 18:26:00* Test Item Value Reference Range Interpretation Comments B-Type Natriuretic Peptide (test code = 35939-8) 14.3 0-100 [facility] AreaTroponin I measurement by highly sensitive enzyme pmioybgxtdi3543-29-07 18:26:00* Test Item Value Reference Range Interpretation Comments Troponin I (test code = 54643-4) 0.034 0-0.300 [facility]anoCHEST SINGLE (NOT PORTABLE)2019-11-24 22:14:00 [facility] [address] [place] [address] Patient Name: CHRISTINE OTTO MR #: [id number] : 1990 Age/Sex: 29/F Req #: [id number] Adm Physician: Ordered by: JONO RICH MD Report #: [id number] Location: ER Room/Bed: Procedur e: [id number] DX/CHEST SINGLE (NOT PORTABLE) Exam Date: 11/24/19 [...] JONO PABLO MD Influenza Virus Types A,B Lhthjrj6136-95-39 21:50:00* Test Item Value Reference Range Interpretation Comments Influenza Virus Types A,B Antigen (test code = 81778-3) NEGATIVE NEGATIVE [facility] AreaGroup A Streptococcus Bqmnnb6070-68-72 21:43:00* Test Item Value Reference Range Interpretation Comments Group A Streptococcus Screen (test code = 44627-3) NEGATIVE NEG ATIVE [facility] AreaUrine AEJ5798-83-36 21:27:00* Test Item Value Reference Range Interpretation Comments Urine WBC (test code = 5821-4) NONE 0-5 [facility] AreaUrine KIV0069-28-95 21:27:00* Test Item Value Reference Range Interpretation Comments Urine RBC (test code = 85099-6) NONE 0-5 [facility] AreaUrine Tgvniuco5253-76-31 21:27:00* Test Item Value Reference Range Interpretation Comments Urine Bacteria (test code = 14263-0) RARE NONE [facility] AreaUrine Epithelial Wwaek4648-20-43 21:27:00 * Test Item Value Reference Range Interpretation Comments Urine Epithelial Cells (test code = 81666-2) MODERATE NONE [facility] AreaUrine SVL9422-28-54 21:27:00* Test Item Value Reference Range Interpretation Comments Urine WBC (test code = 5821-4) NONE 0-5 [facility] AreaUrine LVG3533-00-64 21:27:00* Test Item Value Reference Range Interpretation Comments Urine RBC (test code = 88363-7) NONE 0-5 [facility] AreaUrine Ekzynhct2890-96-30 21:27:00* Test Item Value Reference Range Interpretation Comments Urine Bacteria (test code = 28461-0) RARE NONE [facility] AreaUrine Epithelial Kzkcr4717-86-47 21:27:00 * Test Item Value Reference Range Interpretation Comments Urine Epithelial Cells (test code = 14614-1) MODERATE NONE [facility] AreaUrine UGK8789-09-94 21:27:00* Test Item Value Reference Range Interpretation Comments Urine WBC (test code = 5821-4) NONE 0-5 [facility] AreaU[facility] VKK4071-77-94 21:27:00* Test Item Value Reference Range Interpretation Comments Urine RBC (test code = 37191-0) NONE 0-5 [facility] AreaUrine Vebdcqht5806-84-42 21:27:00* Test Item Value Reference Range Interpretation Comments Urine Bacteria (test code = 79019-6) RARE NONE [facility] AreaUrine Epithelial Igbxi5205-42-17 21:27:00 * Test Item Value Reference Range Interpretation Comments Urine Epithelial Cells (test code = 83283-4) MODERATE NONE [facility] AreaUrine Jckre5345-76-37 21:21:00* Test Item Value Reference Range Interpretation Comments Urine Color (test code = 5778-6) YELLOW YELLOW [facility] AreaUrine Jwbcjrj9756-48-82 21:21:00* Test Item Value Reference Range Interpretation Comments Urine Clarity (test code = 61462-8) SL CLOUDY CLEAR [facility] AreaUrine Specific Ojnzanw4119-82-42 21:21:00 * Test Item Value Reference Range Interpretation Comments Urine Specific [place] (test code = 5811-5) 1.025 1.010-1.02 5 [facility] AreaU[facility] uT5221-19-32 21:21:00* Test Item Value Reference Range Interpretation Comments Urine pH (test code = 98179-4) 6.5 5-7 [facility] AreaU[facility] Leukocyte Gslcltse5260-98-98 21:21:00* Test Item Value Reference Range Interpretation Comments Urine Leukocyte Esterase (test code = 5799-2) NEGATIVE NEGATIVE [facility] AreaU[facility] Gfunxqs4691-32-60 21:21:00* Test Item Value Reference Range Interpretation Comments Urine Nitrite (test code = 16289-3) NEGATIVE NEGATIVE [facility] AreaU[facility] Dtqqjun5581-68-85 21:21:00* Test Item Value Reference Range Interpretation Comments Urine Protein (test code = 5804-0) 1+ NEGATIVE H [facility] AreaUrine Glucose (UA)2019-11-23 21:21:00* Test Item Value Reference Range Interpretation Comments Urine Glucose (UA) (test code = 2349-9) NEGATIVE NEGATIVE [facility] AreaU[facility] Heitqlr9899-21-54 21:21:00* Test Item Value Reference Range Interpretation Comments Urine Ketones (test code = 83330-1) NEGATIVE NEGATIVE [facility] AreaU[facility] Fbpighssncky9464-34-36 21:21:00* Test Item Value Reference Range Interpretation Comments Urine Urobilinogen (test code = 96040-9) 1 0.2-1 [facility] AreaU[facility] Etukzuegm2047-97-82 21:21:00* Test Item Value Reference Range Interpretation Comments Urine Bilirubin (test code = 1978-6) NEGATIVE NEGATIVE [facility] Wyild2639-62-99 21:21:00* Test Item Value Reference Range Interpretation Comments Urine Blood (test code = 67807-6) NEGATIVE NEGATIVE [facility] AreaU[facility] Ouaij0490-93-88 21:21:00* Test Item Value Reference Range Interpretation Comments Urine Color (test code = 5778-6) YELLOW YELLOW [facility] AreaUrine Skfavay7241-40-03 21:21:00* Test Item Value Reference Range Interpretation Comments Urine Clarity (test code = 43316-7) SL CLOUDY CLEAR [facility] Specific Rgmxvix5318-32-10 21:21:00 * Test Item Value Reference Range Interpretation Comments Urine Specific [place] (test code = 5811-5) 1.025 1.010-1.02 5 [facility] Area[facility] sO7507-51-03 21:21:00* Test Item Value Reference Range Interpretation Comments Urine pH (test code = 28465-4) 6.5 5-7 [facility] Leukocyte Tvdnaavi2736-24-16 21:21:00* Test Item Value Reference Range Interpretation Comments Urine Leukocyte Esterase (test code = 5799-2) NEGATIVE NEGATIVE [facility] Quxgoml0441-57-15 21:21:00* Test Item Value Reference Range Interpretation Comments Urine Nitrite (test code = 70521-5) NEGATIVE NEGATIVE [facility] AreaU[facility] Vhohuow7740-13-80 21:21:00* Test Item Value Reference Range Interpretation Comments Urine Protein (test code = 5804-0) 1+ NEGATIVE H [facility] Glucose (UA)2019-11-23 21:21:00* Test Item Value Reference Range Interpretation Comments Urine Glucose (UA) (test code = 2349-9) NEGATIVE NEGATIVE [facility] Pjkkyta4091-11-55 21:21:00* Test Item Value Reference Range Interpretation Comments Urine Ketones (test code = 48599-8) NEGATIVE NEGATIVE [facility] Routaxjckqja9957-21-28 21:21:00* Test Item Value Reference Range Interpretation Comments Urine Urobilinogen (test code = 27834-5) 1 0.2-1 [facility] Nfwghfxts4009-58-50 21:21:00* Test Item Value Reference Range Interpretation Comments Urine Bilirubin (test code = 1978-6) NEGATIVE NEGATIVE [facility] Ogdeo3965-16-92 21:21:00* Test Item Value Reference Range Interpretation Comments Urine Blood (test code = 63450-2) NEGATIVE NEGATIVE [facility] Uxrur2125-00-29 21:21:00* Test Item Value Reference Range Interpretation Comments Urine Color (test code = 5778-6) YELLOW YELLOW [facility] Wixfiya7891-83-10 21:21:00* Test Item Value Reference Range Interpretation Comments Urine Clarity (test code = 42703-0) SL CLOUDY CLEAR [facility] AreaU[facility] Specific Aevsoik8899-62-38 21:21:00 * Test Item Value Reference Range Interpretation Comments Urine Specific [place] (test code = 5811-5) 1.025 1.010-1.02 5 [facility] Area[facility] rT6899-12-88 21:21:00* Test Item Value Reference Range Interpretation Comments Urine pH (test code = 59031-7) 6.5 5-7 [facility] Leukocyte Hfgtjbdo8767-51-47 21:21:00* Test Item Value Reference Range Interpretation Comments Urine Leukocyte Esterase (test code = 5799-2) NEGATIVE NEGATIVE [facility] Nnxjhgl5955-09-96 21:21:00* Test Item Value Reference Range Interpretation Comments Urine Nitrite (test code = 11286-6) NEGATIVE NEGATIVE [facility] Gpvortg4529-37-26 21:21:00* Test Item Value Reference Range Interpretation Comments Urine Protein (test code = 5804-0) 1+ NEGATIVE H [facility] Glucose (UA)2019-11-23 21:21:00* Test Item Value Reference Range Interpretation Comments Urine Glucose (UA) (test code = 2349-9) NEGATIVE NEGATIVE [facility] Umdsxzc7974-49-40 21:21:00* Test Item Value Reference Range Interpretation Comments Urine Ketones (test code = 80876-8) NEGATIVE NEGATIVE [facility] Hpvzolaecrlo4302-94-09 21:21:00* Test Item Value Reference Range Interpretation Comments Urine Urobilinogen (test code = 92945-3) 1 0.2-1 [facility] Jxqrusjsf9749-92-60 21:21:00* Test Item Value Reference Range Interpretation Comments Urine Bilirubin (test code = 1978-6) NEGATIVE NEGATIVE [facility] Ythsm8335-37-23 21:21:00* Test Item Value Reference Range Interpretation Comments Urine Blood (test code = 55807-2) NEGATIVE NEGATIVE [facility] AreaCreatine Cdctwr1962-12-36 21:07:00* Test Item Value Reference Range Interpretation Comments Creatine Kinase (test code = 2157-6) 397 29-168 H [facility] AreaCreatine Xmmrsu3726-50-37 21:07:00* Test Item Value Reference Range Interpretation Comments Creatine Kinase (test code = 2157-6) 397 29-168 H [facility] AreaCreatine Vminvw5060-07-92 21:07:00* Test Item Value Reference Range Interpretation Comments Creatine Kinase (test code = 2157-6) 397 29-168 H [facility] AreaU[facility] color iafkyauoynido7840-89-91 21:05:00* Test Item Value Reference Range Interpretation Comments Urine Color (test code = 5778-6) YELLOW YELLOW [facility] AreaU[facility] qzijpfz4805-68-67 21:05:00* Test Item Value Reference Range Interpretation Comments Urine Clarity (test code = 71352-7) SL CLOUDY CLEAR [facility] Clubpecific gravity of Urine by Test strip 2019-11-23 21:05:00* Test Item Value Reference Range Interpretation Comments Urine Specific [place] (test code = 5811-5) 1.025 1.010-1.02 5 [facility] pH measurement by automated test lkixr6728-62-80 21:05:00* Test Item Value Reference Range Interpretation Comments Urine pH (test code = 08469-1) 6.5 5-7 [facility] Area[facility] leukocyte esterase detection by ecnryyeq8129-38-72 21:05:00* Test Item Value Reference Range Interpretation Comments Urine Leukocyte Esterase (test code = 5799-2) NEGATIVE NEGATIVE [facility] AreaU[facility] nitrite hrfmcplho6168-96-19 21:05:00* Test Item Value Reference Range Interpretation Comments Urine Nitrite (test code = 32431-3) NEGATIVE NEGATIVE [facility] Area[facility] protein measurement by test strip (mass/volume)2019-11-23 21:05:00* Test Item Value Reference Range Interpretation Comments Urine Protein (test code = 5804-0) 1+ NEGATIVE [facility] glucose fnrbiwsqm9902-79-18 21:05:00* Test Item Value Reference Range Interpretation Comments Urine Glucose (UA) (test code = 2349-9) NEGATIVE NEGATIVE [facility] Area[facility] ketones detection by automated test suxdo5279-36-32 21:05:00* Test Item Value Reference Range Interpretation Comments Urine Ketones (test code = 14990-7) NEGATIVE NEGATIVE [facility] AreaUrine urobilinogen measurement by test strip (mass/volume)2019-11-23 21:05:00* Test Item Value Reference Range Interpretation Comments Urine Urobilinogen (test code = 61801-6) 1 0.2-1 [facility] Area[facility] total bilirubin measurement (mass/volume)2019-11-23 21:05:00* Test Item Value Reference Range Interpretation Comments Urine Bilirubin (test code = 1978-6) NEGATIVE NEGATIVE [facility] Area[facility] erythrocytes nbfzejozs3780-03-39 21:05:00* Test Item Value Reference Range Interpretation Comments Urine Blood (test code = 13498-7) NEGATIVE NEGATIVE [facility] AreaAutomated urine sediment leukocyte count by microscopy (number/high power field)2019-11-23 21:05:00* Test Item Value Reference Range Interpretation Comments Urine WBC (test code = 5821-4) NONE 0-5 [facility] AreaErythrocytes detection in urine sediment by light fynhpysyrs3747-29-99 21:05:00* Test Item Value Reference Range Interpretation Comments Urine RBC (test code = 52809-4) NONE 0-5 [facility] AreaBacteria detection in urine sediment by light qngsqiryiq1211-38-77 21:05:00* Test Item Value Reference Range Interpretation Comments Urine Bacteria (test code = 33344-7) RARE NONE [facility] AreaEpithelial cells detection in urine sediment by light hfahsgussn8288-36-17 21:05:00* Test Item Value Reference Range Interpretation Comments Urine Epithelial Cells (test code = 31180-5) MODERATE NONE [facility] AreaHuman Chorionic Gonadotropin, Qual 2019-11-23 20:55:00* Test Item Value Reference Range Interpretation Comments Human Chorionic Gonadotropin, Qual (test code = 2118-8) NEGATIVE NEGATIVE [facility] AreaHuman Chorionic Gonadotropin, Qual 2019-11-23 20:55:00* Test Item Value Reference Range Interpretation Comments Human Chorionic Gonadotropin, Qual (test code = 2118-8) NEGATIVE NEGATIVE [facility] AreaInfluenza Virus Types A,B Antigen 2019-11-23 20:33:00* Test Item Value Reference Range Interpretation Comments Influenza Virus Types A,B Antigen (test code = 10237-8) NEGATIVE NEGATIVE [facility] AreaCreatine Kinase PH5670-33-08 20:31:00* Test Item Value Reference Range Interpretation Comments Creatine Kinase MB (test code = 45049-5) 4.20 0-5.0 [facility] AreaTroponin E2666-81-97 20:31:00* Test Item Value Reference Range Interpretation Comments Troponin I (test code = GAZ1413) 0.039 0-0.300 [facility] AreaCreatine Kinase [id number] 20:31:00* Test Item Value Reference Range Interpretation Comments Creatine Kinase MB (test code = 86565-4) 4.20 0-5.0 [facility] AreaTroponin W4349-18-60 20:31:00* Test Item Value Reference Range Interpretation Comments Troponin I (test code = GIK9710) 0.039 0-0.300 [facility] AreaCreatine Kinase MQ1950-59-40 20:31:00* Test Item Value Reference Range Interpretation Comments Creatine Kinase MB (test code = 53921-0) 4.20 0-5.0 [facility] AreaGroup A Streptococcus Velwxj9678-29-43 20:24:00* Test Item Value Reference Range Interpretation Comments Group A Streptococcus Screen (test code = 83437-9) NEGATIVE NEG ATIVE [facility] Clubodium Xmjtw7034-13-91 20:22:00* Test Item Value Reference Range Interpretation Comments Sodium Level (test code = 2951-2) 132 136-145 L [facility] AreaPotassium Chzdc9366-58-74 20:22:00* Test Item Value Reference Range Interpretation Comments Potassium Level (test code = 2823-3) 3.9 3.5-5.1 [facility] AreaChloride Tmrxy7572-97-82 20:22:00* Test Item Value Reference Range Interpretation Comments Chloride Level (test code = 2075-0) 100 98-107 [facility] AreaCarbon Dioxide Wlzvt9396-14-02 20:22:00* Test Item Value Reference Range Interpretation Comments Carbon Dioxide Level (test code = 2028-9) 28 22-29 [facility] AreaAnion Llb7813-82-68 20:22:00* Test Item Value Reference Range Interpretation Comments Anion Gap (test code = 02433-8) 7.9 8-16 L [facility] AreaBlood Urea Gysyoymn6575-05-47 20:22:00* Test Item Value Reference Range Interpretation Comments Blood Urea Nitrogen (test code = 3094-0) 12 - [facility] AreaCreatinine2020-03-16 20:22:00* Test Item Value Reference Range Interpretation Comments Creatinine (test code = 2160-0) 1.06 0.57-1.11 [facility] AreaBUN/Creatinine Wwcdx6400-65-53 20:22:00* Test Item Value Reference Range Interpretation Comments BUN/Creatinine Ratio (test code = 3097-3) 11 03-03 [facility] AreaEstimat Glomerular Filtration Rate 2019-11-23 20:22:00* Test Item Value Reference Range Interpretation Comments Estimat Glomerular Filtration Rate (test code = 846886444) > 60 >60 Ranges were taken from the National Kidney Disease Education Program and the [facility] literature.Reference ranges:60 or greater: Nlfndw52-88 ( for 3 consecutive months): Chronic kidney disease 15 or less: Kidney failureCorpus Christi [facility] Bay AreaGlucose Rasmf3756-71-64 20:22:00* Test Item Value Reference Range Interpretation Comments Glucose Level (test code = NKY1876) 97 74-118 [facility] AreaCalcium Ytzay1019-07-04 20:22:00* Test Item Value Reference Range Interpretation Comments Calcium Level (test code = 11676-5) 8.8 8.4-10.2 [facility] Clubodium Zhkjw9279-52-28 20:22:00* Test Item Value Reference Range Interpretation Comments Sodium Level (test code = 2951-2) 132 136-145 L [facility] AreaPotassium Nphai6859-65-89 20:22:00* Test Item Value Reference Range Interpretation Comments Potassium Level (test code = 2823-3) 3.9 3.5-5.1 [facility] AreaChloride Rprqh6388-10-94 20:22:00* Test Item Value Reference Range Interpretation Comments Chloride Level (test code = 2075-0) 100 98-107 [facility] AreaCarbon Dioxide Ywiij1892-95-48 20:22:00* Test Item Value Reference Range Interpretation Comments Carbon Dioxide Level (test code = 2028-9) 28 -29 [facility] AreaAnion Zku6475-18-34 20:22:00* Test Item Value Reference Range Interpretation Comments Anion Gap (test code = 43095-1) 7.9 8-16 L [facility] AreaBlood Urea Lcnsxfhr5780-46-70 20:22:00* Test Item Value Reference Range Interpretation Comments Blood Urea Nitrogen (test code = 3094-0) 12 7- [facility] AreaCreatinine2020-03-16 20:22:00* Test Item Value Reference Range Interpretation Comments Creatinine (test code = 2160-0) 1.06 0.57-1.11 [facility] AreaBUN/Creatinine Gotvz8842-97-47 20:22:00* Test Item Value Reference Range Interpretation Comments BUN/Creatinine Ratio (test code = 3097-3) 11 - [facility] AreaEstimat Glomerular Filtration Rate 2019-11-23 20:22:00* Test Item Value Reference Range Interpretation Comments Estimat Glomerular Filtration Rate (test code = 760342783) > 60 >60 Ranges were taken from the National Kidney Disease Education Program and the [facility] Foundation literature.Reference ranges:60 or greater: Daailq96-60 ( for 3 consecutive months): Chronic kidney disease 15 or less: Kidney failureCorpus Christi [facility] Center Bay AreaGlucose Eudye1015-45-86 20:22:00* Test Item Value Reference Range Interpretation Comments Glucose Level (test code = JKB6570) 97 74-118 [facility] AreaCalcium Lehmw1239-14-37 20:22:00* Test Item Value Reference Range Interpretation Comments Calcium Level (test code = 76503-1) 8.8 8.4-10.2 [facility] AreaProthrombin Uecx3370-74-98 20:19:00* Test Item Value Reference Range Interpretation Comments Prothrombin Time (test code = 5902-2) 13.6 11.9-14.5 [facility] AreaProthromb Time International Ratio 2019-11-23 20:19:00* Test Item Value Reference Range Interpretation Comments Prothromb Time International Ratio (test code = 6301-6) 0.98 Oral Anticoagulant Therapy INR Values:1. Low Intensity Therapy 1.5 - 2.02 . Moderate Intensity Therapy 2.0 - 3.03. High Intensity Therapy(1) 2.5 - 3. 54. High Intensity Therapy(2) 3.0 - 4.05. Panic Value INR > 5.0 [facility] AreaActivated Partial Thromboplast Time 2019-11-23 20:19:00* Test Item Value Reference Range Interpretation Comments Activated Partial Thromboplast Time (test code = 51644-0) 27.9 23.8-35.5 [facility] AreaProthrombin Dwrf9676-64-35 20:19:00* Test Item Value Reference Range Interpretation Comments Prothrombin Time (test code = 5902-2) 13.6 11.9-14.5 [facility] AreaProthromb Time International Ratio 2019-11-23 20:19:00* Test Item Value Reference Range Interpretation Comments Prothromb Time International Ratio (test code = 6301-6) 0.98 Oral Anticoagulant Therapy INR Values:1. Low Intensity Therapy 1.5 - 2.02 . Moderate Intensity Therapy 2.0 - 3.03. High Intensity Therapy(1) 2.5 - 3. 54. High Intensity Therapy(2) 3.0 - 4.05. Panic Value INR > 5.0 [facility] AreaActivated Partial Thromboplast Time 2019-11-23 20:19:00* Test Item Value Reference Range Interpretation Comments Activated Partial Thromboplast Time (test code = 14421-7) 27.9 23.8-35.5 [facility] AreaProthrombin Hjqw3736-35-90 20:19:00* Test Item Value Reference Range Interpretation Comments Prothrombin Time (test code = 5902-2) 13.6 11.9-14.5 [facility] AreaProthromb Time International Ratio 2019-11-23 20:19:00* Test Item Value Reference Range Interpretation Comments Prothromb Time International Ratio (test code = 6301-6) 0.98 Oral Anticoagulant Therapy INR Values:1. Low Intensity Therapy 1.5 - 2.02 . Moderate Intensity Therapy 2.0 - 3.03. High Intensity Therapy(1) 2.5 - 3. 54. High Intensity Therapy(2) 3.0 - 4.05. Panic Value INR > 5.0 [facility] AreaActivated Partial Thromboplast Time 2019-11-23 20:19:00* Test Item Value Reference Range Interpretation Comments Activated Partial Thromboplast Time (test code = 77776-1) 27.9 23.8-35.5 [facility] AreaWhite Blood Duqgy7717-38-87 20:08:00* Test Item Value Reference Range Interpretation Comments White Blood Count (test code = 6690-2) 6.24 4.8-10.8 [facility] AreaRed Blood Sgasv0052-41-92 20:08:00* Test Item Value Reference Range Interpretation Comments Red Blood Count (test code = 789-8) 3.43 3.6-5.1 L [facility] AreaHemoglobin2020-03-16 20:08:00* Test Item Value Reference Range Interpretation Comments Hemoglobin (test code = 55290-7) 10.3 12.0-16.0 L [facility] AreaHematocrit2020-03-16 20:08:00* Test Item Value Reference Range Interpretation Comments Hematocrit (test code = 4544-3) 31.4 34.2-44.1 L [facility] AreaMean Corpuscular Pniumu8873-49-04 20:08:00* Test Item Value Reference Range Interpretation Comments Mean Corpuscular Volume (test code = 787-2) 91.5 81-99 [facility] AreaMean Corpuscular Vfefxkocvm5715-29-87 20:08:00* Test Item Value Reference Range Interpretation Comments Mean Corpuscular Hemoglobin (test code = 785-6) 30.0 28-32 [facility] AreaMean Corpuscular Hemoglobin Concent 2019-11-23 20:08:00* Test Item Value Reference Range Interpretation Comments Mean Corpuscular Hemoglobin Concent (test code = 786-4) 32.8 31-35 [facility] AreaRed Cell Distribution Jeqyi9663-91-91 20:08:00* Test Item Value Reference Range Interpretation Comments Red Cell Distribution Width (test code = 53407-4) 13.6 11.7 -14.4 [facility] AreaPlatelet Bloia7146-59-12 20:08:00* Test Item Value Reference Range Interpretation Comments Platelet Count (test code = 777-3) 196 140-360 [facility] AreaNeutrophils (%) (Auto)2019-11-23 20:08:00 * Test Item Value Reference Range Interpretation Comments Neutrophils (%) (Auto) (test code = 25887-9) 81.3 38.7-80.0 H [facility] AreaLymphocytes (%) (Auto)2019-11-23 20:08:00 * Test Item Value Reference Range Interpretation Comments Lymphocytes (%) (Auto) (test code = 736-9) 13.8 18.0-39.1 L [facility] AreaMonocytes (%) (Auto)2019-11-23 20:08:00* Test Item Value Reference Range Interpretation Comments Monocytes (%) (Auto) (test code = 5905-5) 4.2 4.4-11.3 L [facility] AreaEosinophils (%) (Auto)2019-11-23 20:08:00 * Test Item Value Reference Range Interpretation Comments Eosinophils (%) (Auto) (test code = 713-8) 0.2 0.0-6.0 [facility] AreaBasophils (%) (Auto)2019-11-23 20:08:00* Test Item Value Reference Range Interpretation Comments Basophils (%) (Auto) (test code = 706-2) 0.2 0.0-1.0 [facility] AreaIM GRANULOCYTES %2019-11-23 20:08:00* Test Item Value Reference Range Interpretation Comments IM GRANULOCYTES % (test code = IM GRANULOCYTES %) 0.3 0.0- 1.0 [facility] AreaNeutrophils # (Auto)2019-11-23 20:08:00* Test Item Value Reference Range Interpretation Comments Neutrophils # (Auto) (test code = 751-8) 5.1 2.1-6.9 [facility] AreaLymphocytes # (Auto)2019-11-23 20:08:00* Test Item Value Reference Range Interpretation Comments Lymphocytes # (Auto) (test code = 33775-7) 0.9 1.0-3.2 L [facility] AreaMonocytes # (Auto)2019-11-23 20:08:00* Test Item Value Reference Range Interpretation Comments Monocytes # (Auto) (test code = 742-7) 0.3 0.2-0.8 [facility] AreaEosinophils # (Auto)2019-11-23 20:08:00* Test Item Value Reference Range Interpretation Comments Eosinophils # (Auto) (test code = 711-2) 0.0 0.0-0.4 [facility] AreaBasophils # (Auto)2019-11-23 20:08:00* Test Item Value Reference Range Interpretation Comments Basophils # (Auto) (test code = 704-7) 0.0 0.0-0.1 [facility] AreaAbsolute Immature Granulocyte (auto 2019-11-23 20:08:00* Test Item Value Reference Range Interpretation Comments Absolute Immature Granulocyte (auto (dana t code = Absolute Immature Granulocyte (auto) 0.02 0-0.1 [facility] AreaWhite Blood Bptni5804-37-37 20:08:00* Test Item Value Reference Range Interpretation Comments White Blood Count (test code = 6690-2) 6.24 4.8-10.8 [facility] AreaRed Blood Nzzwc7087-86-41 20:08:00* Test Item Value Reference Range Interpretation Comments Red Blood Count (test code = 789-8) 3.43 3.6-5.1 L [facility] AreaHemoglobin2020-03-16 20:08:00* Test Item Value Reference Range Interpretation Comments Hemoglobin (test code = 77959-1) 10.3 12.0-16.0 L [facility] AreaHematocrit2020-03-16 20:08:00* Test Item Value Reference Range Interpretation Comments Hematocrit (test code = 4544-3) 31.4 34.2-44.1 L [facility] AreaMean Corpuscular Uqygbx0198-07-73 20:08:00* Test Item Value Reference Range Interpretation Comments Mean Corpuscular Volume (test code = 787-2) 91.5 81-99 [facility] AreaMean Corpuscular Ijpmkrjbax2631-42-86 20:08:00* Test Item Value Reference Range Interpretation Comments Mean Corpuscular Hemoglobin (test code = 785-6) 30.0 28-32 [facility] AreaMean Corpuscular Hemoglobin Concent 2019-11-23 20:08:00* Test Item Value Reference Range Interpretation Comments Mean Corpuscular Hemoglobin Concent (test code = 786-4) 32.8 31-35 [facility] AreaRed Cell Distribution Fyqpu9232-04-13 20:08:00* Test Item Value Reference Range Interpretation Comments Red Cell Distribution Width (test code = 14248-4) 13.6 11.7 -14.4 [facility] AreaPlatelet Szozl1047-49-27 20:08:00* Test Item Value Reference Range Interpretation Comments Platelet Count (test code = 777-3) 196 140-360 [facility] AreaNeutrophils (%) (Auto)2019-11-23 20:08:00 * Test Item Value Reference Range Interpretation Comments Neutrophils (%) (Auto) (test code = 15184-1) 81.3 38.7-80.0 H [facility] AreaLymphocytes (%) (Auto)2019-11-23 20:08:00 * Test Item Value Reference Range Interpretation Comments Lymphocytes (%) (Auto) (test code = 736-9) 13.8 18.0-39.1 L [facility] AreaMonocytes (%) (Auto)2019-11-23 20:08:00* Test Item Value Reference Range Interpretation Comments Monocytes (%) (Auto) (test code = 5905-5) 4.2 4.4-11.3 L [facility] AreaEosinophils (%) (Auto)2019-11-23 20:08:00 * Test Item Value Reference Range Interpretation Comments Eosinophils (%) (Auto) (test code = 713-8) 0.2 0.0-6.0 [facility] AreaBasophils (%) (Auto)2019-11-23 20:08:00* Test Item Value Reference Range Interpretation Comments Basophils (%) (Auto) (test code = 706-2) 0.2 0.0-1.0 [facility] AreaIM GRANULOCYTES %2019-11-23 20:08:00* Test Item Value Reference Range Interpretation Comments IM GRANULOCYTES % (test code = IM GRANULOCYTES %) 0.3 0.0- 1.0 [facility] AreaNeutrophils # (Auto)2019-11-23 20:08:00* Test Item Value Reference Range Interpretation Comments Neutrophils # (Auto) (test code = 751-8) 5.1 2.1-6.9 [facility] AreaLymphocytes # (Auto)2019-11-23 20:08:00* Test Item Value Reference Range Interpretation Comments Lymphocytes # (Auto) (test code = 02713-9) 0.9 1.0-3.2 L [facility] AreaMonocytes # (Auto)2019-11-23 20:08:00* Test Item Value Reference Range Interpretation Comments Monocytes # (Auto) (test code = 742-7) 0.3 0.2-0.8 [facility] AreaEosinophils # (Auto)2019-11-23 20:08:00* Test Item Value Reference Range Interpretation Comments Eosinophils # (Auto) (test code = 711-2) 0.0 0.0-0.4 [facility] AreaBasophils # (Auto)2019-11-23 20:08:00* Test Item Value Reference Range Interpretation Comments Basophils # (Auto) (test code = 704-7) 0.0 0.0-0.1 [facility] AreaAbsolute Immature Granulocyte (auto 2019-11-23 20:08:00* Test Item Value Reference Range Interpretation Comments Absolute Immature Granulocyte (auto (dana t code = Absolute Immature Granulocyte (auto) 0.02 0-0.1 [facility] AreaProthrombin time (PT) in platelet poor plasma by coagulation gamqv5813-22-32 19:45:00* Test Item Value Reference Range Interpretation Comments Prothrombin Time (test code = 5902-2) 13.6 11.9-14.5 [facility] AreaINR in Platelet poor plasma by Coagulation ufwxk8751-44-84 19:45:00* Test Item Value Reference Range Interpretation Comments Prothromb Time International Ratio (test code = 6301-6) 0.98 Oral Anticoagulant Therapy INR Values:1. Low Intensity Therapy 1.5 - 2.02 . Moderate Intensity Therapy 2.0 - 3.03. High Intensity Therapy(1) 2.5 - 3. 54. High Intensity Therapy(2) 3.0 - 4.05. Panic Value INR > 5.0 [facility] AreaActivated partial thromboplastin time (aPTT) in platelet poor plasma by coagulation xedlq7123-75-67 19:45:00* Test Item Value Reference Range Interpretation Comments Activated Partial Thromboplast Time (test code = 31127-3) 27.9 23.8-35.5 [facility] or plasma creatine kinase measurement (enzymatic activity/volume)2019-11-23 19:45:00* Test Item Value Reference Range Interpretation Comments Creatine Kinase (test code = 2157-6) 397 29-168 [facility] Cluberum or plasma creatine kinase MB measurement (mass/volume)2019-11-23 19:45:00* Test Item Value Reference Range Interpretation Comments Creatine Kinase MB (test code = 81772-3) 4.20 0-5.0 [facility] Cluberum or plasma creatine kinase measurement (enzymatic activity/volume)2019-11-23 19:45:00* Test Item Value Reference Range Interpretation Comments Creatine Kinase (test code = 2157-6) 397 29-168 [facility] Cluberum or plasma creatine kinase MB measurement (mass/volume)2019-11-23 19:45:00* Test Item Value Reference Range Interpretation Comments Creatine Kinase MB (test code = 58951-1) 4.20 0-5.0 [facility] AreaCHEST SINGLE (PORTABLE)2019-11-23 19:00:00 [facility] [address] [address] Patient Name: CHRISTINE OTTO MR #: [id number] : 1990 Age/Sex: 29/F Req #: [id number] Adm Physician: Ordered by: CHI CARRASCO NP Report #: [id number] Location: ER Room/Bed: Procedure: [id number] DX/CHEST SINGLE (PORTABLE) Exam Date: 11/23/19 Exam [...] IONA on 11/23/191900 COPY TO: CHI CARRASCO 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 SPLICER HELPER Blood Pmrgdez6488-98-45 09:05:00* Test Item Value Reference Range Interpretation Comments Blood Culture (test code = 17527242) NO GROWTH AFTER 5 DAYS, FINAL REPORT [facility] AreaBlood Xabbvjh7483-52-13 09:05:00* Test Item Value Reference Range Interpretation Comments Blood Culture (test code = 30772024) NO GROWTH AFTER 5 DAYS, FINAL REPORT [facility] AreaBlood Jmuqifi4097-99-79 09:05:00* Test Item Value Reference Range Interpretation Comments Blood Culture (test code = 71100276) NO GROWTH AFTER 48 HOURS [facility] AreaOvalocytes2019-11-14 12:40:00* Test Item Value Reference Range Interpretation Comments Ovalocytes (test code = 774-0) FEW [facility] AreaOvalocytes2019-11-14 12:40:00* Test Item Value Reference Range Interpretation Comments Ovalocytes (test code = 774-0) FEW [facility] AreaOvalocytes2019-11-14 12:40:00* Test Item Value Reference Range Interpretation Comments Ovalocytes (test code = 774-0) FEW [facility] AreaOvalocytes2019-11-14 12:40:00* Test Item Value Reference Range Interpretation Comments Ovalocytes (test code = 774-0) FEW [facility] AreaDifferential Total Cells Counted 2019-07-23 12:28:00* Test Item Value Reference Range Interpretation Comments Differential Total Cells Counted (test code = Differbrigid tial Total Cells Counted) 100 [facility] AreaNeutrophils % (Manual)2019-07-23 12:28:00 * Test Item Value Reference Range Interpretation Comments Neutrophils % (Manual) (test code = 11544-8) 74 40-74 [facility] AreaLymphocytes % (Manual)2019-07-23 12:28:00 * Test Item Value Reference Range Interpretation Comments Lymphocytes % (Manual) (test code = 737-7) 19 19-48 [facility] AreaMonocytes % (Manual)2019-07-23 12:28:00* Test Item Value Reference Range Interpretation Comments Monocytes % (Manual) (test code = 744-3) 7 3.4-9.0 [facility] AreaPlatelet Gorvkkmk6376-49-89 12:28:00* Test Item Value Reference Range Interpretation Comments Platelet Estimate (test code = 90306-1) ADEQUATE [facility] AreaPlatelet Morphology Tjxplea5053-69-25 12:28:00* Test Item Value Reference Range Interpretation Comments Platelet Morphology Comment (test code = 76998-7) NORMAL [facility] AreaPoikilocytosis2019-11-14 12:28:00* Test Item Value Reference Range Interpretation Comments Poikilocytosis (test code = 779-9) SLIGHT [facility] AreaAnisocytosis2019-11-14 12:28:00* Test Item Value Reference Range Interpretation Comments Anisocytosis (test code = 702-1) SLIGHT [facility] AreaRed Cell Morphology Kucpddx4467-33-07 12:28:00* Test Item Value Reference Range Interpretation Comments Red Cell Morphology Comment (test code = 6742-1) NORMAL [facility] AreaDifferential Total Cells Counted 2019-07-23 12:28:00* Test Item Value Reference Range Interpretation Comments Differential Total Cells Counted (test code = Differbrigid tial Total Cells Counted) 100 [facility] AreaNeutrophils % (Manual)2019-07-23 12:28:00 * Test Item Value Reference Range Interpretation Comments Neutrophils % (Manual) (test code = 10940-8) 74 40-74 [facility] AreaLymphocytes % (Manual)2019-07-23 12:28:00 * Test Item Value Reference Range Interpretation Comments Lymphocytes % (Manual) (test code = 737-7) 19 19-48 [facility] AreaMonocytes % (Manual)2019-07-23 12:28:00* Test Item Value Reference Range Interpretation Comments Monocytes % (Manual) (test code = 744-3) 7 3.4-9.0 [facility] AreaPlatelet Kypbxlzh5303-72-06 12:28:00* Test Item Value Reference Range Interpretation Comments Platelet Estimate (test code = 80902-7) ADEQUATE [facility] AreaPlatelet Morphology Ouocmwp5891-42-13 12:28:00* Test Item Value Reference Range Interpretation Comments Platelet Morphology Comment (test code = 98316-5) NORMAL [facility] AreaPoikilocytosis2019-11-14 12:28:00* Test Item Value Reference Range Interpretation Comments Poikilocytosis (test code = 779-9) SLIGHT [facility] AreaAnisocytosis2019-11-14 12:28:00* Test Item Value Reference Range Interpretation Comments Anisocytosis (test code = 702-1) SLIGHT [facility] AreaRed Cell Morphology Dgvvbxw5323-07-94 12:28:00* Test Item Value Reference Range Interpretation Comments Red Cell Morphology Comment (test code = 6742-1) NORMAL [facility] AreaDifferential Total Cells Counted 2019-07-23 12:28:00* Test Item Value Reference Range Interpretation Comments Differential Total Cells Counted (test code = Differen tial Total Cells Counted) 100 [facility] AreaNeutrophils % (Manual)2019-07-23 12:28:00 * Test Item Value Reference Range Interpretation Comments Neutrophils % (Manual) (test code = 45834-5) 74 40-74 [facility] AreaLymphocytes % (Manual)2019-07-23 12:28:00 * Test Item Value Reference Range Interpretation Comments Lymphocytes % (Manual) (test code = 737-7) 19 19-48 [facility] AreaMonocytes % (Manual)2019-07-23 12:28:00* Test Item Value Reference Range Interpretation Comments Monocytes % (Manual) (test code = 744-3) 7 3.4-9.0 [facility] AreaPlatelet Hacfzdgs9273-92-99 12:28:00* Test Item Value Reference Range Interpretation Comments Platelet Estimate (test code = 07661-5) ADEQUATE [facility] AreaPlatelet Morphology Blpcsxj5158-53-43 12:28:00* Test Item Value Reference Range Interpretation Comments Platelet Morphology Comment (test code = 60996-3) NORMAL [facility] AreaPoikilocytosis2019-11-14 12:28:00* Test Item Value Reference Range Interpretation Comments Poikilocytosis (test code = 779-9) SLIGHT [facility] AreaAnisocytosis2019-11-14 12:28:00* Test Item Value Reference Range Interpretation Comments Anisocytosis (test code = 702-1) SLIGHT [facility] AreaRed Cell Morphology Vekligx7097-78-61 12:28:00* Test Item Value Reference Range Interpretation Comments Red Cell Morphology Comment (test code = 6742-1) NORMAL [facility] AreaPoikilocytosis2019-11-14 12:28:00* Test Item Value Reference Range Interpretation Comments Poikilocytosis (test code = 779-9) SLIGHT [facility] AreaUrine KCA4196-40-46 11:33:00* Test Item Value Reference Range Interpretation Comments Urine WBC (test code = 5821-4) 6-10 0-5 H [facility] AreaUrine ZHF2090-38-09 11:33:00* Test Item Value Reference Range Interpretation Comments Urine RBC (test code = 37801-3) 0-5 0-5 [facility] AreaUrine Azurxthg8416-85-09 11:33:00* Test Item Value Reference Range Interpretation Comments Urine Bacteria (test code = 23558-9) MANY NONE H [facility] AreaUrine Epithelial Teutw2366-57-23 11:33:00 * Test Item Value Reference Range Interpretation Comments Urine Epithelial Cells (test code = 53723-3) MODERATE NONE [facility] AreaUrine Bsueb5100-79-56 11:29:00* Test Item Value Reference Range Interpretation Comments Urine Color (test code = 5778-6) YELLOW YELLOW [facility] AreaUrine Uysxqrc4690-03-32 11:29:00* Test Item Value Reference Range Interpretation Comments Urine Clarity (test code = 73645-3) SL CLOUDY CLEAR [facility] AreaUrine Specific Ofyindi1125-69-07 11:29:00 * Test Item Value Reference Range Interpretation Comments Urine Specific [place] (test code = 5811-5) >=1.030 1.010-1.02 5 [facility] AreaUrine oM7138-93-89 11:29:00* Test Item Value Reference Range Interpretation Comments Urine pH (test code = 65549-7) 6 5-7 [facility] AreaUrine Leukocyte Midxmswz0307-37-15 11:29:00* Test Item Value Reference Range Interpretation Comments Urine Leukocyte Esterase (test code = 46683-5) NEGATIVE NEGATIV E [facility] AreaUrine Yyaxvnm1708-53-10 11:29:00* Test Item Value Reference Range Interpretation Comments Urine Nitrite (test code = 66859-3) NEGATIVE NEGATIVE [facility] AreaUrine Phjlewv5817-67-08 11:29:00* Test Item Value Reference Range Interpretation Comments Urine Protein (test code = 58387-5) NEGATIVE NEGATIVE [facility] AreaUrine Glucose (UA)2019-07-23 11:29:00* Test Item Value Reference Range Interpretation Comments Urine Glucose (UA) (test code = 64251-0) NEGATIVE NEGATIVE [facility] AreaUrine Dwfphjk8900-60-27 11:29:00* Test Item Value Reference Range Interpretation Comments Urine Ketones (test code = 15028-4) NEGATIVE NEGATIVE [facility] AreaUrine Xghzdxdvegxg8473-77-73 11:29:00* Test Item Value Reference Range Interpretation Comments Urine Urobilinogen (test code = 03826-8) 1 0.2-1 [facility] AreaUrine Thwuihqwj2548-34-65 11:29:00* Test Item Value Reference Range Interpretation Comments Urine Bilirubin (test code = 1977-8) NEGATIVE NEGATIVE [facility] AreaUrine Ydyas3249-83-40 11:29:00* Test Item Value Reference Range Interpretation Comments Urine Blood (test code = 46922-9) NEGATIVE NEGATIVE [facility] AreaHemoglobin A1c Ogdajaz0014-70-18 11:28:00 * Test Item Value Reference Range Interpretation Comments Hemoglobin A1c Percent (test code = Hemoglobin A1c Percent) 5.1 4.0-7.0 [facility] AreaHemoglobin A1c Ptugegp4982-35-63 11:28:00 * Test Item Value Reference Range Interpretation Comments Hemoglobin A1c Percent (test code = Hemoglobin A1c Percent) 5.1 4.0-7.0 [facility] AreaHemoglobin A1c Jeewptz0954-09-56 11:28:00 * Test Item Value Reference Range Interpretation Comments Hemoglobin A1c Percent (test code = Hemoglobin A1c Percent) 5.1 4.0-7.0 [facility] AreaTriglycerides Gaspg7086-27-31 08:29:00* Test Item Value Reference Range Interpretation Comments Triglycerides Level (test code = 2571-8) 118 0-149 [facility] AreaCholesterol Jopzo5145-33-29 08:29:00* Test Item Value Reference Range Interpretation Comments Cholesterol Level (test code = 2093-3) 102 0-199 Less than 200 mg/dL Low Itoo596 - 239 mg/dL Borderline Tqfy925 m g/dl and greater High Risk [facility] AreaLDL Cygfrzsmfso3726-36-90 08:29:00* Test Item Value Reference Range Interpretation Comments LDL Cholesterol (test code = 2089-1) 56 60-130 [facility] Gjkquhplnjf0251-43-15 08:29:00* Test Item Value Reference Range Interpretation Comments HDL Cholesterol (test code = 2085-9) 22 40-60 L [facility] AreaCholesterol/HDL Nvikq9212-05-75 08:29:00 * Test Item Value Reference Range Interpretation Comments Cholesterol/HDL Ratio (test code = 9830-1) 4.6 3.0-3.6 H [facility] AreaTriglycerides Opkmj9869-18-10 08:29:00* Test Item Value Reference Range Interpretation Comments Triglycerides Level (test code = 2571-8) 118 0-149 [facility] AreaCholesterol Rmplc9590-05-06 08:29:00* Test Item Value Reference Range Interpretation Comments Cholesterol Level (test code = 2093-3) 102 0-199 Less than 200 mg/dL Low Jlxi305 - 239 mg/dL Borderline Wptt923 m g/dl and greater High Risk [facility] AreaLDL Eqszsovauaa7180-46-08 08:29:00* Test Item Value Reference Range Interpretation Comments LDL Cholesterol (test code = 2089-1) 56 60-130 [facility]L Rjjlozjyywa1950-83-88 08:29:00* Test Item Value Reference Range Interpretation Comments HDL Cholesterol (test code = 2085-9) 22 40-60 L [facility] AreaCholesterol/HDL Klblz3405-19-83 08:29:00 * Test Item Value Reference Range Interpretation Comments Cholesterol/HDL Ratio (test code = 9830-1) 4.6 3.0-3.6 H [facility] AreaTriglycerides Efeuy5031-64-94 08:29:00* Test Item Value Reference Range Interpretation Comments Triglycerides Level (test code = 2571-8) 118 0-149 [facility] AreaCholesterol Sfpxd4966-36-91 08:29:00* Test Item Value Reference Range Interpretation Comments Cholesterol Level (test code = 2093-3) 102 0-199 Less than 200 mg/dL Low Vxmh264 - 239 mg/dL Borderline Rmot648 m g/dl and greater High Risk [facility] AreaLDL Vaunuvgrfwr6242-85-87 08:29:00* Test Item Value Reference Range Interpretation Comments LDL Cholesterol (test code = 2089-1) 56 60-130 L [facility] AreaHDL Dfpdafcgvpn1177-71-45 08:29:00* Test Item Value Reference Range Interpretation Comments HDL Cholesterol (test code = 2085-9) 22 40-60 L [facility] AreaCholesterol/HDL Hrwtj6205-56-62 08:29:00 * Test Item Value Reference Range Interpretation Comments Cholesterol/HDL Ratio (test code = 9830-1) 4.6 3.0-3.6 H [facility] Clubodium Zawqa3922-80-77 06:07:00* Test Item Value Reference Range Interpretation Comments Sodium Level (test code = 2951-2) 135 136-145 L [facility] AreaPotassium Yqoab6950-76-96 06:07:00* Test Item Value Reference Range Interpretation Comments Potassium Level (test code = 2823-3) 3.6 3.5-5.1 [facility] AreaChloride Jmsgx4976-58-96 06:07:00* Test Item Value Reference Range Interpretation Comments Chloride Level (test code = 2075-0) 104 98-107 [facility] AreaCarbon Dioxide Gjxdn3555-05-56 06:07:00* Test Item Value Reference Range Interpretation Comments Carbon Dioxide Level (test code = 2028-9) 25 22-29 [facility] AreaAnion Mwq3295-24-31 06:07:00* Test Item Value Reference Range Interpretation Comments Anion Gap (test code = 12145-9) 9.6 8-16 [facility] AreaBlood Urea Qbzfight9861-54-42 06:07:00* Test Item Value Reference Range Interpretation Comments Blood Urea Nitrogen (test code = 3094-0) 11 7-26 [facility] AreaCreatinine2019-11-14 06:07:00* Test Item Value Reference Range Interpretation Comments Creatinine (test code = 2160-0) 1.01 0.57-1.11 [facility] AreaBUN/Creatinine Gtmjg0599-70-97 06:07:00* Test Item Value Reference Range Interpretation Comments BUN/Creatinine Ratio (test code = 3097-3) 11 03-03 [facility] AreaEstimat Glomerular Filtration Rate 2019-07-23 06:07:00* Test Item Value Reference Range Interpretation Comments Estimat Glomerular Filtration Rate (test code = 264886358) > 60 >60 Ranges were taken from the National Kidney Disease Education Program and the [facility] Kidney Foundation literature.Reference ranges:60 or greater: Dsqdxf50-83 ( for 3 consecutive months): Chronic kidney disease 15 or less: Kidney failureCorpus Christi Medical Center Bay AreaGlucose Sfpdx3144-58-45 06:07:00* Test Item Value Reference Range Interpretation Comments Glucose Level (test code = ZIU1855) 82 74-118 [facility] AreaCalcium Taosg9027-41-80 06:07:00* Test Item Value Reference Range Interpretation Comments Calcium Level (test code = 44237-6) 8.8 8.4-10.2 [facility] AreaTotal Zfsgshbpn6129-05-92 06:07:00* Test Item Value Reference Range Interpretation Comments Total Bilirubin (test code = 1975-2) 0.7 0.2-1.2 [facility] AreaAspartate Amino Transf (AST/SGOT) 2019-07-23 06:07:00* Test Item Value Reference Range Interpretation Comments Aspartate Amino Transf (AST/SGOT) (test code = Aspartate Amino Transf (AST/SGOT)) 20 5-34 [facility] AreaAlanine Aminotransferase (ALT/SGPT) 2019-07-23 06:07:00* Test Item Value Reference Range Interpretation Comments Alanine Aminotransferase (ALT/SGPT) (test code = 1742-6) 11 0-55 [facility] AreaTotal Xsznfip2238-29-34 06:07:00* Test Item Value Reference Range Interpretation Comments Total Protein (test code = 2885-2) 8.1 6.5-8.1 [facility] AreaAlbumin2019-11-14 06:07:00* Test Item Value Reference Range Interpretation Comments Albumin (test code = 1751-7) 3.0 3.5-5.0 L [facility] AreaGlobulin2019-11-14 06:07:00* Test Item Value Reference Range Interpretation Comments Globulin (test code = 36291-0) 5.1 2.3-3.5 H [facility] AreaAlbumin/Globulin Legwa2053-44-33 06:07:00 * Test Item Value Reference Range Interpretation Comments Albumin/Globulin Ratio (test code = 1759-0) 0.6 0.8-2.0 L [facility] AreaAlkaline Qczfcsngaln8675-22-50 06:07:00* Test Item Value Reference Range Interpretation Comments Alkaline Phosphatase (test code = 6768-6) 16 40-150 L [facility] AreaTotal Obeyxjqiq0572-63-30 06:07:00* Test Item Value Reference Range Interpretation Comments Total Bilirubin (test code = 1975-2) 0.7 0.2-1.2 [facility] AreaAspartate Amino Transf (AST/SGOT) 2019-07-23 06:07:00* Test Item Value Reference Range Interpretation Comments Aspartate Amino Transf (AST/SGOT) (test code = Aspartate Amino Transf (AST/SGOT)) 20 5-34 [facility] AreaAlanine Aminotransferase (ALT/SGPT) 2019-07-23 06:07:00* Test Item Value Reference Range Interpretation Comments Alanine Aminotransferase (ALT/SGPT) (test code = 1742-6) 11 0-55 [facility] Ljxpkeo3598-49-84 06:07:00* Test Item Value Reference Range Interpretation Comments Total Protein (test code = 2885-2) 8.1 6.5-8.1 [facility] AreaAlbumin2019-11-14 06:07:00* Test Item Value Reference Range Interpretation Comments Albumin (test code = 1751-7) 3.0 3.5-5.0 L [facility] AreaGlobulin2019-11-14 06:07:00* Test Item Value Reference Range Interpretation Comments Globulin (test code = 34392-8) 5.1 2.3-3.5 H [facility] AreaAlbumin/Globulin Vfahz2389-58-01 06:07:00 * Test Item Value Reference Range Interpretation Comments Albumin/Globulin Ratio (test code = 1759-0) 0.6 0.8-2.0 L [facility] AreaAlkaline Udpzkkvgofw9172-81-58 06:07:00* Test Item Value Reference Range Interpretation Comments Alkaline Phosphatase (test code = 6768-6) 16 40-150 L [facility] AreaTotal Qdjrajwgl5349-46-26 06:07:00* Test Item Value Reference Range Interpretation Comments Total Bilirubin (test code = 1975-2) 0.7 0.2-1.2 [facility] AreaAspartate Amino Transf (AST/SGOT) 2019-07-23 06:07:00* Test Item Value Reference Range Interpretation Comments Aspartate Amino Transf (AST/SGOT) (test code = Aspartate Amino Transf (AST/SGOT)) 20 5-34 [facility] AreaAlanine Aminotransferase (ALT/SGPT) 2019-07-23 06:07:00* Test Item Value Reference Range Interpretation Comments Alanine Aminotransferase (ALT/SGPT) (test code = 1742-6) 11 0-55 [facility] AreaTotal Qiraetx5460-90-58 06:07:00* Test Item Value Reference Range Interpretation Comments Total Protein (test code = 2885-2) 8.1 6.5-8.1 [facility] AreaAlbumin2019-11-14 06:07:00* Test Item Value Reference Range Interpretation Comments Albumin (test code = 1751-7) 3.0 3.5-5.0 L [facility] AreaGlobulin2019-11-14 06:07:00* Test Item Value Reference Range Interpretation Comments Globulin (test code = 76983-4) 5.1 2.3-3.5 H [facility] AreaAlbumin/Globulin Bomue0109-23-31 06:07:00 * Test Item Value Reference Range Interpretation Comments Albumin/Globulin Ratio (test code = 1759-0) 0.6 0.8-2.0 L [facility] AreaAlkaline Lhpqmauuccu7450-93-61 06:07:00* Test Item Value Reference Range Interpretation Comments Alkaline Phosphatase (test code = 6768-6) 16 40-150 L [facility] AreaWhite Blood Knonu8473-18-15 05:39:00* Test Item Value Reference Range Interpretation Comments White Blood Count (test code = 6690-2) 3.41 4.8-10.8 L [facility] AreaRed Blood Dxdvh1909-53-05 05:39:00* Test Item Value Reference Range Interpretation Comments Red Blood Count (test code = 789-8) 3.30 3.6-5.1 L [facility] AreaHemoglobin2019-11-14 05:39:00* Test Item Value Reference Range Interpretation Comments Hemoglobin (test code = 52267-9) 10.0 12.0-16.0 L [facility] AreaHematocrit2019-11-14 05:39:00* Test Item Value Reference Range Interpretation Comments Hematocrit (test code = 4544-3) 30.6 34.2-44.1 L [facility] AreaMean Corpuscular Sdtcnf7979-42-78 05:39:00* Test Item Value Reference Range Interpretation Comments Mean Corpuscular Volume (test code = 787-2) 92.7 81-99 [facility] AreaMean Corpuscular Ienixtzpar4886-46-19 05:39:00* Test Item Value Reference Range Interpretation Comments Mean Corpuscular Hemoglobin (test code = 785-6) 30.3 28-32 [facility] AreaMean Corpuscular Hemoglobin Concent 2019-07-23 05:39:00* Test Item Value Reference Range Interpretation Comments Mean Corpuscular Hemoglobin Concent (test code = 786-4) 32.7 31-35 [facility] AreaRed Cell Distribution Eiqwo7799-03-02 05:39:00* Test Item Value Reference Range Interpretation Comments Red Cell Distribution Width (test code = 07096-6) 13.4 11.7 -14.4 [facility] AreaPlatelet Emgqp9410-42-18 05:39:00* Test Item Value Reference Range Interpretation Comments Platelet Count (test code = 777-3) 153 140-360 [facility] AreaNeutrophils (%) (Auto)2019-07-23 05:39:00 * Test Item Value Reference Range Interpretation Comments Neutrophils (%) (Auto) (test code = 61811-5) 50.4 38.7-80.0 [facility] AreaLymphocytes (%) (Auto)2019-07-23 05:39:00 * Test Item Value Reference Range Interpretation Comments Lymphocytes (%) (Auto) (test code = 736-9) 39.0 18.0-39.1 [facility] AreaMonocytes (%) (Auto)2019-07-23 05:39:00* Test Item Value Reference Range Interpretation Comments Monocytes (%) (Auto) (test code = 5905-5) 10.3 4.4-11.3 [facility] AreaEosinophils (%) (Auto)2019-07-23 05:39:00 * Test Item Value Reference Range Interpretation Comments Eosinophils (%) (Auto) (test code = 713-8) 0.0 0.0-6.0 [facility] AreaBasophils (%) (Auto)2019-07-23 05:39:00* Test Item Value Reference Range Interpretation Comments Basophils (%) (Auto) (test code = 706-2) 0.3 0.0-1.0 [facility] AreaIM GRANULOCYTES %2019-07-23 05:39:00* Test Item Value Reference Range Interpretation Comments IM GRANULOCYTES % (test code = IM GRANULOCYTES %) 0.0 0.0- 1.0 [facility] AreaNeutrophils # (Auto)2019-07-23 05:39:00* Test Item Value Reference Range Interpretation Comments Neutrophils # (Auto) (test code = 751-8) 1.7 2.1-6.9 L [facility] AreaLymphocytes # (Auto)2019-07-23 05:39:00* Test Item Value Reference Range Interpretation Comments Lymphocytes # (Auto) (test code = 61125-0) 1.3 1.0-3.2 [facility] AreaMonocytes # (Auto)2019-07-23 05:39:00* Test Item Value Reference Range Interpretation Comments Monocytes # (Auto) (test code = 742-7) 0.4 0.2-0.8 [facility] AreaEosinophils # (Auto)2019-07-23 05:39:00* Test Item Value Reference Range Interpretation Comments Eosinophils # (Auto) (test code = 711-2) 0.0 0.0-0.4 [facility] AreaBasophils # (Auto)2019-07-23 05:39:00* Test Item Value Reference Range Interpretation Comments Basophils # (Auto) (test code = 704-7) 0.0 0.0-0.1 [facility] AreaAbsolute Immature Granulocyte (auto 2019-07-23 05:39:00* Test Item Value Reference Range Interpretation Comments Absolute Immature Granulocyte (auto (dana t code = Absolute Immature Granulocyte (auto) 0 0-0.1 [facility] AreaBlood poikilocytosis detection by light kydvarzflj9343-69-12 04:25:00* Test Item Value Reference Range Interpretation Comments Poikilocytosis (test code = 779-9) SLIGHT [facility] AreaBlood ovalocytes detection by light ffvhbfitem8882-74-28 04:25:00* Test Item Value Reference Range Interpretation Comments Ovalocytes (test code = 774-0) FEW [facility]Bl[facility] poikilocytosis detection by light sczvoniuwn7010-93-96 04:25:00* Test Item Value Reference Range Interpretation Comments Poikilocytosis (test code = 779-9) SLIGHT [facility] AreaBlood ovalocytes detection by light ayquiercyb2843-68-82 04:25:00* Test Item Value Reference Range Interpretation Comments Ovalocytes (test code = 774-0) FEW [facility] AreaProthrombin Rxuy0573-40-13 11:30:00* Test Item Value Reference Range Interpretation Comments Prothrombin Time (test code = 5902-2) 13.9 11.9-14.5 [facility] AreaProthromb Time International Ratio 2019-07-22 11:30:00* Test Item Value Reference Range Interpretation Comments Prothromb Time International Ratio (test code = 6301-6) 1.02 Oral Anticoagulant Therapy INR Values:1. Low Intensity Therapy 1.5 - 2.02 . Moderate Intensity Therapy 2.0 - 3.03. High Intensity Therapy(1) 2.5 - 3. 54. High Intensity Therapy(2) 3.0 - 4.05. Panic Value INR > 5.0 [facility] AreaActivated Partial Thromboplast Time 2019-07-22 11:30:00* Test Item Value Reference Range Interpretation Comments Activated Partial Thromboplast Time (test code = 19598-5) 28.9 23.8-35.5 [facility] AreaCT ABDOMEN/PELVIS T2907-10-64 11:14:00 [facility] [address] [address] Patient Name: CHRISTINE OTTO MR #: [id number] : [birth year] Age/Sex: 28/F Req #: [id number] Adm Physician: Ordered by: JOSE MANUEL COBURN MD Report #: [id number] Location: ER Room/Bed: Procedure: [id number] CT/ CT ABDOMEN/PELVIS W Exam Date: 07/22/19 [...] 11:21 AM Dictated By: JENN IBARRA MD 1121 Transcribed By: IONA on 07/22/19 1121 COPY TO: JOSE MANUEL COBURN MD US ZYAAEQMCURDR5808-56-99 10:26:00 [address] [place] [address] Patient Name: CHRISTINE OTTO MR #: [id number] : 1990 Age/Sex: 28/F Req #: [id number] Adm Physician: Ordered by: JOSE MANUEL COBURN MD Report #: [id number] Location: ER Room/Bed: Procedure: [id number] US/ US TRANSVAGINAL Exam Date: 07/22/19 Exam Time: 942 REPORT STATUS: Signed Exam: P elvic ultrasound. [...] JOSE MANUEL COBURN MD US PELVIC DOPPLER [id number] 10:26:00 [address] [address] Patient Name: CHRISTINE OTTO MR #: [id number] : 1990 Age/Sex: 28/F Req #: [id number] [facility] Physician: Ordered by: JOSE MANUEL COBURN MD Report #: [id number] Location: ER Room/Bed: Procedure: [id number] US/ US PELVIC DOPPLER LTD Exam Date: [...] MANUEL COBURN MD US PELVIS COMPLETE NON IO6569-68-97 10:26:00 [address] [address] Patient Name: CHRISTINE OTTO MR #: [id number] : 1990 Age/Sex: 28/F Req #: [id number] Adm Physician: Ordered by: JOSE MANUEL COBURN MD Report #: [id number] Location: ER Room/Bed: Procedure: [id number] US/ US PELVIS COMPLETE NON OB Exam [...] Comments Basophils % (Manual) (test code = 74626-1) 1 0-1.5 [facility]2019-11-13 10:04:00* Test Item Value Reference Range Interpretation Comments Stomatocytes (test code = 67907-5) SLIGHT [facility] AreaBasophils % (Manual)2019-07-22 10:04:00* Test Item Value Reference Range Interpretation Comments Basophils % (Manual) (test code = 18183-2) 1 0-1.5 [facility]13 10:04:00* Test Item Value Reference Range Interpretation Comments Stomatocytes (test code = 92939-1) SLIGHT [facility] AreaBasophils % (Manual)2019-07-22 10:04:00* Test Item Value Reference Range Interpretation Comments Basophils % (Manual) (test code = 34746-6) 1 0-1.5 [facility]2019-11-13 10:04:00* Test Item Value Reference Range Interpretation Comments Stomatocytes (test code = 24843-9) SLIGHT [facility] AreaBasophils % (Manual)2019-07-22 10:04:00* Test Item Value Reference Range Interpretation Comments Basophils % (Manual) (test code = 88659-8) 1 0-1.5 [facility] Clubtomat[facility]2019-11-13 10:04:00* Test Item Value Reference Range Interpretation Comments Stomatocytes (test code = 15282-2) SLIGHT [facility] AreaUrine Uwds0120-17-39 08:41:00* Test Item Value Reference Range Interpretation Comments Urine Test (test code = 2106-3) NEGATIVE NEGATIVE [facility] AreaUrine Xcqw7715-89-87 08:41:00* Test Item Value Reference Range Interpretation Comments Urine Test (test code = 2106-3) NEGATIVE NEGATIVE [facility] AreaUrine Sxom3675-87-86 08:41:00* Test Item Value Reference Range Interpretation Comments Urine Test (test code = 2106-3) NEGATIVE NEGATIVE [facility] AreaUrine Quxc5668-48-34 08:41:00* Test Item Value Reference Range Interpretation Comments Urine Test (test code = 2106-3) NEGATIVE NEGATIVE [facility] AreaManual basophil pjceflrnhq5452-55-02 08:00:00* Test Item Value Reference Range Interpretation Comments Basophils % (Manual) (test code = 08222-8) 1 0-1.5 [facility] AreaBlood stomatocytes detection by light phicalbwgq2659-93-73 08:00:00* Test Item Value Reference Range Interpretation Comments Stomatocytes (test code = 45257-9) SLIGHT [facility] AreaManual basophil ycoczgyrjl9342-48-17 08:00:00* Test Item Value Reference Range Interpretation Comments Basophils % (Manual) (test code = 35674-6) 1 0-1.5 [facility] AreaBlood stomatocytes detection by light ekfnfmvjaw7418-84-18 08:00:00* Test Item Value Reference Range Interpretation Comments Stomatocytes (test code = 95558-1) SLIGHT [facility] AreaUrine human chorionic gonadotropin (hCG) lfotowzms3038-69-23 07:30:00* Test Item Value Reference Range Interpretation Comments Urine Test (test code = 2106-3) NEGATIVE NEGATIVE [facility] AreaUrine human chorionic gonadotropin (hCG) wlqdhjone7645-39-21 07:30:00* Test Item Value Reference Range Interpretation Comments Urine Test (test code = 2106-3) NEGATIVE NEGATIVE [facility] AreaProthrombin Ovlx0133-11-16 22:50:00* Test Item Value Reference Range Interpretation Comments Prothrombin Time (test code = 5902-2) 13.1 11.9-14.5 [facility] AreaProthromb Time International Ratio 2019-02-09 22:50:00* Test Item Value Reference Range Interpretation Comments Prothromb Time International Ratio (test code = 6301-6) 0.94 Oral Anticoagulant Therapy INR Values:1. Low Intensity Therapy 1.5 - 2.02 . Moderate Intensity Therapy 2.0 - 3.03. High Intensity Therapy(1) 2.5 - 3. 54. High Intensity Therapy(2) 3.0 - 4.05. Panic Value INR > 5.0 [facility] AreaActivated Partial Thromboplast Time 2019-02-09 22:50:00* Test Item Value Reference Range Interpretation Comments Activated Partial Thromboplast Time (test code = 91120-0) 26.8 23.8-35.5 [facility] AreaB-Type Natriuretic Tnirqtm0130-72-15 22:49:00* Test Item Value Reference Range Interpretation Comments B-Type Natriuretic Peptide (test code = 47020-3) 18.6 0-100 [facility] AreaCreatine Kinase GO6339-31-92 22:49:00* Test Item Value Reference Range Interpretation Comments Creatine Kinase MB (test code = 48940-1) 1.20 0-5.0 [facility] AreaTroponin S5485-85-67 22:49:00* Test Item Value Reference Range Interpretation Comments Troponin I (test code = MLG1922) 0.008 0-0.300 [facility] AreaB-Type Natriuretic Kwohoek2691-60-79 22:49:00* Test Item Value Reference Range Interpretation Comments B-Type Natriuretic Peptide (test code = 47758-7) 18.6 0-100 [facility] AreaCreatine Kinase CF8362-66-86 22:49:00* Test Item Value Reference Range Interpretation Comments Creatine Kinase MB (test code = 44102-2) 1.20 0-5.0 [facility] AreaTroponin W2804-29-82 22:49:00* Test Item Value Reference Range Interpretation Comments Troponin I (test code = KLB2379) 0.008 0-0.300 [facility] AreaB-Type Natriuretic Qtsxguh6855-79-90 22:49:00* Test Item Value Reference Range Interpretation Comments B-Type Natriuretic Peptide (test code = 84642-7) 18.6 0-100 [facility] AreaB-Type Natriuretic Pfwjabf7217-11-77 22:49:00* Test Item Value Reference Range Interpretation Comments B-Type Natriuretic Peptide (test code = 17399-0) 18.6 0-100 [facility] Clubodium Zkcwt2423-02-57 22:42:00* Test Item Value Reference Range Interpretation Comments Sodium Level (test code = 2951-2) 134 136-145 L [facility] AreaPotassium Xsgra9368-36-68 22:42:00* Test Item Value Reference Range Interpretation Comments Potassium Level (test code = 2823-3) 3.5 3.5-5.1 [facility] AreaChloride Tvauj3313-73-79 22:42:00* Test Item Value Reference Range Interpretation Comments Chloride Level (test code = 2075-0) 103 98-107 [facility] AreaCarbon Dioxide Xpvau3954-75-14 22:42:00* Test Item Value Reference Range Interpretation Comments Carbon Dioxide Level (test code = 2028-9) 26 22-29 [facility] AreaAnion Dxi3454-71-88 22:42:00* Test Item Value Reference Range Interpretation Comments Anion Gap (test code = 60842-1) 8.5 8-16 [facility] AreaBlood Urea Gxjlojdp1624-18-35 22:42:00* Test Item Value Reference Range Interpretation Comments Blood Urea Nitrogen (test code = 3094-0) 15 04-03 [facility] AreaCreatinine2019-06-03 22:42:00* Test Item Value Reference Range Interpretation Comments Creatinine (test code = 2160-0) 0.97 0.57-1.11 [facility] AreaBUN/Creatinine Gctmf5203-17-80 22:42:00* Test Item Value Reference Range Interpretation Comments BUN/Creatinine Ratio (test code = 3097-3) 15 03-03 [facility] AreaEstimat Glomerular Filtration Rate 2019-02-09 22:42:00* Test Item Value Reference Range Interpretation Comments Estimat Glomerular Filtration Rate (test code = 028850224) > 60 >60 Ranges were taken from the National Kidney Disease Education Program and the [facility] [employer] literature.Reference ranges:60 or greater: Kqhspb76-45 ( for 3 consecutive months): Chronic kidney disease 15 or less: Kidney failureCorpus Christi Medical Center Bay AreaGlucose Cukdg2265-54-02 22:42:00* Test Item Value Reference Range Interpretation Comments Glucose Level (test code = FCN8999) 87 74-118 [facility] AreaCalcium Hvztu5710-24-56 22:42:00* Test Item Value Reference Range Interpretation Comments Calcium Level (test code = 79179-1) 8.8 8.4-10.2 [facility] AreaTotal Xydyxgzjy0343-08-17 22:42:00* Test Item Value Reference Range Interpretation Comments Total Bilirubin (test code = 1975-2) 0.4 0.2-1.2 [facility] AreaAspartate Amino Transf (AST/SGOT) 2019-02-09 22:42:00* Test Item Value Reference Range Interpretation Comments Aspartate Amino Transf (AST/SGOT) (test code = Aspartate Amino Transf (AST/SGOT)) 22 534 [facility] AreaAlanine Aminotransferase (ALT/SGPT) 2019-02-09 22:42:00* Test Item Value Reference Range Interpretation Comments Alanine Aminotransferase (ALT/SGPT) (test code = 1742-6) 15 0-55 [facility] AreaTotal Njwwefx7284-00-27 22:42:00* Test Item Value Reference Range Interpretation Comments Total Protein (test code = 2885-2) 9.8 6.5-8.1 H [facility] AreaAlbumin2019-06-03 22:42:00* Test Item Value Reference Range Interpretation Comments Albumin (test code = 1751-7) 3.5 3.5-5.0 [facility] AreaGlobulin2019-06-03 22:42:00* Test Item Value Reference Range Interpretation Comments Globulin (test code = 92177-2) 6.3 2.3-3.5 H [facility] AreaAlbumin/Globulin Eudvd8411-90-50 22:42:00 * Test Item Value Reference Range Interpretation Comments Albumin/Globulin Ratio (test code = 1759-0) 0.6 0.8-2.0 L [facility] AreaAlkaline Qpbqkzqfala5160-71-91 22:42:00* Test Item Value Reference Range Interpretation Comments Alkaline Phosphatase (test code = 6768-6) 22 40-150 L [facility] AreaCreatine Opnrqt2686-16-63 22:42:00* Test Item Value Reference Range Interpretation Comments Creatine Kinase (test code = 2157-6) 274 29-168 H [facility] AreaCreatine Ickalb0746-18-34 22:42:00* Test Item Value Reference Range Interpretation Comments Creatine Kinase (test code = 2157-6) 274 29-168 H [facility] AreaWhite Blood Cklug5885-42-12 22:20:00* Test Item Value Reference Range Interpretation Comments White Blood Count (test code = 6690-2) 4.45 4.8-10.8 L [facility] AreaRed Blood Eyhnr9997-10-93 22:20:00* Test Item Value Reference Range Interpretation Comments Red Blood Count (test code = 789-8) 3.25 3.6-5.1 L [facility] AreaHemoglobin2019-06-03 22:20:00* Test Item Value Reference Range Interpretation Comments Hemoglobin (test code = 69857-9) 9.8 12.0-16.0 L [facility] AreaHematocrit2019-06-03 22:20:00* Test Item Value Reference Range Interpretation Comments Hematocrit (test code = 4544-3) 31.1 34.2-44.1 L [facility] AreaMean Corpuscular Xybamo8268-71-00 22:20:00* Test Item Value Reference Range Interpretation Comments Mean Corpuscular Volume (test code = 787-2) 95.7 81-99 [facility] AreaMean Corpuscular Pzedvioaam2682-57-73 22:20:00* Test Item Value Reference Range Interpretation Comments Mean Corpuscular Hemoglobin (test code = 785-6) 30.2 28-32 [facility] Corpuscular Hemoglobin Concent 2019-02-09 22:20:00* Test Item Value Reference Range Interpretation Comments Mean Corpuscular Hemoglobin Concent (test code = 786-4) 31.5 31-35 [facility] AreaRed Cell Distribution Laodr9232-22-03 22:20:00* Test Item Value Reference Range Interpretation Comments Red Cell Distribution Width (test code = 11538-4) 13.3 11.7 -14.4 [facility] AreaPlatelet Uvzkd8472-92-81 22:20:00* Test Item Value Reference Range Interpretation Comments Platelet Count (test code = 777-3) 230 140-360 [facility] AreaNeutrophils (%) (Auto)2019-02-09 22:20:00 * Test Item Value Reference Range Interpretation Comments Neutrophils (%) (Auto) (test code = 39341-8) 58.5 38.7-80.0 [facility] AreaLymphocytes (%) (Auto)2019-02-09 22:20:00 * Test Item Value Reference Range Interpretation Comments Lymphocytes (%) (Auto) (test code = 736-9) 34.8 18.0-39.1 [facility] AreaMonocytes (%) (Auto)2019-02-09 22:20:00* Test Item Value Reference Range Interpretation Comments Monocytes (%) (Auto) (test code = 5905-5) 6.3 4.4-11.3 [facility] AreaEosinophils (%) (Auto)2019-02-09 22:20:00 * Test Item Value Reference Range Interpretation Comments Eosinophils (%) (Auto) (test code = 713-8) 0.0 0.0-6.0 [facility] AreaBasophils (%) (Auto)2019-02-09 22:20:00* Test Item Value Reference Range Interpretation Comments Basophils (%) (Auto) (test code = 706-2) 0.2 0.0-1.0 [facility] AreaIM GRANULOCYTES %2019-02-09 22:20:00* Test Item Value Reference Range Interpretation Comments IM GRANULOCYTES % (test code = IM GRANULOCYTES %) 0.2 0.0- 1.0 [facility] AreaNeutrophils # (Auto)2019-02-09 22:20:00* Test Item Value Reference Range Interpretation Comments Neutrophils # (Auto) (test code = 751-8) 2.6 2.1-6.9 [facility] AreaLymphocytes # (Auto)2019-02-09 22:20:00* Test Item Value Reference Range Interpretation Comments Lymphocytes # (Auto) (test code = 84163-5) 1.6 1.0-3.2 [facility] AreaMonocytes # (Auto)2019-02-09 22:20:00* Test Item Value Reference Range Interpretation Comments Monocytes # (Auto) (test code = 742-7) 0.3 0.2-0.8 [facility] AreaEosinophils # (Auto)2019-02-09 22:20:00* Test Item Value Reference Range Interpretation Comments Eosinophils # (Auto) (test code = 711-2) 0.0 0.0-0.4 [facility] AreaBasophils # (Auto)2019-02-09 22:20:00* Test Item Value Reference Range Interpretation Comments Basophils # (Auto) (test code = 704-7) 0.0 0.0-0.1 [facility] AreaAbsolute Immature Granulocyte (auto 2019-02-09 22:20:00* Test Item Value Reference Range Interpretation Comments Absolute Immature Granulocyte (auto (dana t code = Absolute Immature Granulocyte (auto) 0.01 0-0.1 [facility] AreaUrine FJU4414-00-90 20:58:00* Test Item Value Reference Range Interpretation Comments Urine WBC (test code = 5821-4) NONE 0-5 [facility] AreaUrine VXR8093-35-93 20:58:00* Test Item Value Reference Range Interpretation Comments Urine RBC (test code = 06319-0) 21-50 0-5 H [facility] AreaUrine Gvlkmosr6241-68-34 20:58:00* Test Item Value Reference Range Interpretation Comments Urine Bacteria (test code = 88450-9) MANY NONE H [facility] AreaUrine Epithelial Sylgo3194-64-98 20:58:00 * Test Item Value Reference Range Interpretation Comments Urine Epithelial Cells (test code = 00247-0) FEW NONE [facility] AreaUrine Ltvrh7916-22-94 20:48:00* Test Item Value Reference Range Interpretation Comments Urine Color (test code = 5778-6) YELLOW YELLOW [facility] AreaUrine Wcnqqar4858-95-08 20:48:00* Test Item Value Reference Range Interpretation Comments Urine Clarity (test code = 40346-4) SL CLOUDY CLEAR [facility] AreaUrine Specific Seapcuj5257-21-22 20:48:00 * Test Item Value Reference Range Interpretation Comments Urine Specific [place] (test code = 5811-5) 1.020 1.010-1.02 5 [facility] AreaUrine oA6412-85-10 20:48:00* Test Item Value Reference Range Interpretation Comments Urine pH (test code = 56878-7) 5.5 5-7 [facility] AreaUrine Leukocyte Evhrsovr9733-60-46 20:48:00* Test Item Value Reference Range Interpretation Comments Urine Leukocyte Esterase (test code = 12285-0) NEGATIVE NEGATIV E [facility] AreaUrine Uhktqxe2925-94-96 20:48:00* Test Item Value Reference Range Interpretation Comments Urine Nitrite (test code = 20859-4) NEGATIVE NEGATIVE [facility] AreaUrine Vuailyl6791-22-99 20:48:00* Test Item Value Reference Range Interpretation Comments Urine Protein (test code = 77997-7) NEGATIVE NEGATIVE [facility] AreaUrine Glucose (UA)2019-02-09 20:48:00* Test Item Value Reference Range Interpretation Comments Urine Glucose (UA) (test code = 38811-7) NEGATIVE NEGATIVE [facility] AreaUrine Juwewoo7633-59-82 20:48:00* Test Item Value Reference Range Interpretation Comments Urine Ketones (test code = 17620-2) NEGATIVE NEGATIVE [facility] AreaUrine Lmtvlcsdsgzs5092-55-21 20:48:00* Test Item Value Reference Range Interpretation Comments Urine Urobilinogen (test code = 65354-3) 0.2 0.2-1 [facility] AreaUrine Iamvghejm1976-12-29 20:48:00* Test Item Value Reference Range Interpretation Comments Urine Bilirubin (test code = 1977-8) NEGATIVE NEGATIVE [facility] AreaUrine Ybgbs7805-71-78 20:48:00* Test Item Value Reference Range Interpretation Comments Urine Blood (test code = 50446-5) 3+ NEGATIVE [facility] AreaCHEST SINGLE (PORTABLE)2019-02-09 20:45:00 [place] [address] Patient Name: CHRISTINE OTTO MR #: [id number] : 1990 Age/Sex: 28/F Req #: [id number] Adm Physician: Ordered by: JOSE MANUEL COBURN MD Report #: [id number] Location: ER Room/Bed: Procedure: [id number] DX/ CHEST SINGLE (PORTABLE) Exam Date: Exam [...] IONA on 02/09/19 COPY TO: JOSE MANUEL CBOURN MD Urine Hsbe4545-32-04 20:44:00* Test Item Value Reference Range Interpretation Comments Urine Test (test code = 2106-3) NEGATIVE NEGATIVE [facility] YSROQDYZN2948-95-85 10:04:00 - DIAG MAMM BILATERAL AYESHA CAD DIGITALBILATERAL FIRST EVER DIGITAL DIAGNOSTIC MAMMOGRAM 3D/2D WITH CAD: 12/17/2018CLINICAL: Nipple discharge, right breast, brown. Digital breast tomosynthesis was performed in addition to routine CC and MLO views. Current mammographic images were evaluated by either a G-cluster M-Vu or a [employer] ImageChecker CAD (computer aided detection system). No [...] ACR guidelines. Naseem Reese M.D. rb/:12/17/2018 10:04:00 Touch Up Worker: Sandra TAY, [facility]-FWletter sent: BIRADS 1-2 Combo FU [...] mammographic images were evaluated by either a G-cluster M-Vu or a [employer] CAD (computer aided detection system). No prior [...] ACR guidelines. Naseem Reese M.D. rb/:12/17/2018 10:04:00 Touch Up Worker: Russel Cavazos [facility]-FWletter sent: BIRADS 1-2 Combo FU Letter Mammogram BI-RADS: 0 Indeterminate Ultrasound BI-RADS: 2 BenignUrine Gnzxx5508-54-90 00:45:00* Test Item Value Reference Range Interpretation Comments Urine Color (test code = 5778-6) YELLOW YELLOW [facility] Ktnvhgz8086-05-69 00:45:00* Test Item Value Reference Range Interpretation Comments Urine Clarity (test code = 68099-6) CLOUDY CLEAR H [facility] Specific [place]7732-05-53 00:45:00 * Test Item Value Reference Range Interpretation Comments Urine Specific [place] (test code = 5811-5) 1.025 1.010-1.02 5 [facility] [id number] 00:45:00* Test Item Value Reference Range Interpretation Comments Urine pH (test code = 94127-6) 6 5-7 [facility] Leukocyte Mrmjgmgm8498-86-04 00:45:00* Test Item Value Reference Range Interpretation Comments Urine Leukocyte Esterase (test code = 5799-2) NEGATIVE NEGATIVE [facility] Dstgfhg4994-35-01 00:45:00* Test Item Value Reference Range Interpretation Comments Urine Nitrite (test code = 91701-6) NEGATIVE NEGATIVE [facility] Iotegnb2667-74-89 00:45:00* Test Item Value Reference Range Interpretation Comments Urine Protein (test code = 5804-0) TRACE NEGATIVE H [facility] Glucose (UA)2018-12-15 00:45:00* Test Item Value Reference Range Interpretation Comments Urine Glucose (UA) (test code = 2349-9) NEGATIVE NEGATIVE [facility] Eayblyd0099-95-58 00:45:00* Test Item Value Reference Range Interpretation Comments Urine Ketones (test code = 37082-1) NEGATIVE NEGATIVE [facility] Lvmjiaefpwvx7469-16-31 00:45:00* Test Item Value Reference Range Interpretation Comments Urine Urobilinogen (test code = 39780-9) 0.2 0.2-1 [facility] Awoszcpqc7335-57-23 00:45:00* Test Item Value Reference Range Interpretation Comments Urine Bilirubin (test code = 1978-6) NEGATIVE NEGATIVE [facility] Ojomi0959-71-13 00:45:00* Test Item Value Reference Range Interpretation Comments Urine Blood (test code = 13796-7) 3+ NEGATIVE H [facility] KYT0813-41-65 00:45:00* Test Item Value Reference Range Interpretation Comments Urine WBC (test code = 5821-4) 21-50 0-5 H [facility] CYP3959-58-01 00:45:00* Test Item Value Reference Range Interpretation Comments Urine RBC (test code = 25745-8) >50 0-5 H [facility] Vvghlyui9947-75-36 00:45:00* Test Item Value Reference Range Interpretation Comments Urine Bacteria (test code = 20723-2) MODERATE NONE H [facility] Epithelial Rktac8017-21-24 00:45:00 * Test Item Value Reference Range Interpretation Comments Urine Epithelial Cells (test code = 10924-5) FEW NONE [facility] Tyzr2824-32-25 00:45:00* Test Item Value Reference Range Interpretation Comments Urine Test (test code = 2106-3) NEGATIVE NEGATIVE Y@IS THE INTERNAL POSITIVE CONTROL OK? [facility] Throat Xultyvs8132-50-68 11:10:00* Test Item Value Reference Range Interpretation Comments Throat Culture (test code = 626-2) Organism: STREPTOCOCCUS GROUP A [facility] Cfjwlgm9091-66-65 11:10:00* Test Item Value Reference Range Interpretation Comments Throat Culture (test code = 626-2) Organism: STREPTOCOCCUS GROUP A [facility] [id number] 13:32:00* Test Item Value Reference Range Interpretation Comments Urine WBC (test code = 5821-4) 6-10 0-5 H [facility] [id number] 13:32:00* Test Item Value Reference Range Interpretation Comments Urine RBC (test code = 45640-7) 11-20 0-5 H [facility] Dctcqfay6469-74-23 13:32:00* Test Item Value Reference Range Interpretation Comments Urine Bacteria (test code = 11529-4) RARE NONE [facility] Epithelial Pjqmj8768-28-79 13:32:00 * Test Item Value Reference Range Interpretation Comments Urine Epithelial Cells (test code = 65236-5) FEW NONE [facility] Ziaed7661-82-71 13:18:00* Test Item Value Reference Range Interpretation Comments Urine Color (test code = 5778-6) YELLOW YELLOW [facility] Tukfyzr1109-01-06 13:18:00* Test Item Value Reference Range Interpretation Comments Urine Clarity (test code = 92270-3) SL CLOUDY CLEAR [facility] Specific Sgkexhd3159-75-63 13:18:00 * Test Item Value Reference Range Interpretation Comments Urine Specific [place] (test code = 5811-5) 1.020 1.010-1.02 5 [facility] sR1247-24-97 13:18:00* Test Item Value Reference Range Interpretation Comments Urine pH (test code = 05406-6) 6 5-7 [facility] Leukocyte Vskzhvnb6358-22-84 13:18:00* Test Item Value Reference Range Interpretation Comments Urine Leukocyte Esterase (test code = 5799-2) TRACE NEGATIVE H [facility] Esbkvjj9523-36-27 13:18:00* Test Item Value Reference Range Interpretation Comments Urine Nitrite (test code = 72184-0) NEGATIVE NEGATIVE [facility] Hdxjmtu7406-79-74 13:18:00* Test Item Value Reference Range Interpretation Comments Urine Protein (test code = 5804-0) TRACE NEGATIVE H [facility] Glucose (UA)2018-07-29 13:18:00* Test Item Value Reference Range Interpretation Comments Urine Glucose (UA) (test code = 2349-9) NEGATIVE NEGATIVE [facility] Aropjeh4975-36-66 13:18:00* Test Item Value Reference Range Interpretation Comments Urine Ketones (test code = 51384-1) NEGATIVE NEGATIVE [facility] Cnhcrriougxv0109-70-21 13:18:00* Test Item Value Reference Range Interpretation Comments Urine Urobilinogen (test code = 09457-2) 0.2 0.2-1 [facility] Dteejhqrs8066-02-71 13:18:00* Test Item Value Reference Range Interpretation Comments Urine Bilirubin (test code = 1978-6) NEGATIVE NEGATIVE [facility] Jqfgn7126-17-16 13:18:00* Test Item Value Reference Range Interpretation Comments Urine Blood (test code = 09120-1) 3+ [facility]GATIVE [facility] 12:38:00* Test Item Value Reference Range Interpretation Comments Monoscreen (test code = 5215-9) NEGATIVE NEGATIVE [facility] 12:38:00* Test Item Value Reference Range Interpretation Comments Monoscreen (test code = 5215-9) NEGATIVE NEGATIVE [facility] 12:38:00* Test Item Value Reference Range Interpretation Comments Monoscreen (test code = 5215-9) NEGATIVE NEGATIVE [facility] AreaInfluenza Virus Types A,B Antigen 2018-07-29 12:22:00* Test Item Value Reference Range Interpretation Comments Influenza Virus Types A,B Antigen (test code = 85831-9) NEGATIVE NEGATIVE [facility] AreaInflu[facility] Virus Types A,B Antigen 2018-07-29 12:22:00* Test Item Value Reference Range Interpretation Comments Influenza Virus Types A,B Antigen (test code = 09890-8) NEGATIVE NEGATIVE [facility] AreaInfluenza Virus Types A,B Antigen 2018-07-29 12:22:00* Test Item Value Reference Range Interpretation Comments Influenza Virus Types A,B Antigen (test code = 84140-1) NEGATIVE NEGATIVE [facility] AreaThyroid Stimulating Hormone (TSH) 2018-07-29 12:17:00* Test Item Value Reference Range Interpretation Comments Thyroid Stimulating Hormone (TSH) (test code = 86652-4) 4.481 0.350-4.940 [facility] AreaThyroid Stimulating Hormone (TSH) 2018-07-29 12:17:00* Test Item Value Reference Range Interpretation Comments Thyroid Stimulating Hormone (TSH) (test code = 26695-8) 4.481 0.350-4.940 [facility] AreaThyroid Stimulating Hormone (TSH) 2018-07-29 12:17:00* Test Item Value Reference Range Interpretation Comments Thyroid Stimulating Hormone (TSH) (test code = 71114-1) 4.481 0.350-4.940 [facility] AreaGroup A Streptococcus Oiypmb8970-30-86 12:09:00* Test Item Value Reference Range Interpretation Comments Group A Streptococcus Screen (test code = 63256-2) NEGATIVE NEG ATIVE [facility] AreaGroup A Streptococcus Cnwnak5803-99-64 12:09:00* Test Item Value Reference Range Interpretation Comments Group A Streptococcus Screen (test code = 27296-5) NEGATIVE NEG IVE [facility] A Streptococcus Bxopcq0295-72-38 12:09:00* Test Item Value Reference Range Interpretation Comments Group A Streptococcus Screen (test code = 29951-9) NEGATIVE NEG ATIVE [facility] Zjcdw6613-50-79 12:02:00* Test Item Value Reference Range Interpretation Comments Sodium Level (test code = 2951-2) 132 136-145 L [facility] AreaPotassium Ylczo6962-77-65 12:02:00* Test Item Value Reference Range Interpretation Comments Potassium Level (test code = 2823-3) 3.4 3.5-5.1 L [facility] AreaChloride Syokc1194-03-09 12:02:00* Test Item Value Reference Range Interpretation Comments Chloride Level (test code = 2075-0) 101 98-107 [facility] AreaCarbon Dioxide Hfxje1833-76-62 12:02:00* Test Item Value Reference Range Interpretation Comments Carbon Dioxide Level (test code = 2028-9) 26 22-29 [facility] AreaAnion Mxk7392-62-81 12:02:00* Test Item Value Reference Range Interpretation Comments Anion Gap (test code = 76851-3) 8.4 8-16 [facility] AreaBlood Urea Syrifjva8960-39-77 12:02:00* Test Item Value Reference Range Interpretation Comments Blood Urea Nitrogen (test code = 3094-0) 13 7-26 [facility] AreaCreatinine2018-11-20 12:02:00* Test Item Value Reference Range Interpretation Comments Creatinine (test code = 2160-0) 1.11 0.57-1.11 [facility] AreaBUN/Creatinine Jorml6413-83-59 12:02:00* Test Item Value Reference Range Interpretation Comments BUN/Creatinine Ratio (test code = 3097-3) 12 6-25 [facility] AreaEstimat Glomerular Filtration Rate 2018-07-29 12:02:00* Test Item Value Reference Range Interpretation Comments Estimat Glomerular Filtration Rate (test code = 409818719) > 60 >60 Ranges were taken from the National Kidney Disease Education Program and the [facility] Kidney Foundation literature.Reference ranges:60 or greater: Osaeqv62-08 ( for 3 consecutive months): Chronic kidney disease 15 or less: Kidney failureCorpus Christi [facility] AreaGlucose Kefrj7678-57-14 12:02:00* Test Item Value Reference Range Interpretation Comments Glucose Level (test code = LQK9947) 124 74-118 H [facility] AreaCalcium Zbunp3253-31-55 12:02:00* Test Item Value Reference Range Interpretation Comments Calcium Level (test code = 11353-0) 8.7 8.4-10.2 [facility] AreaTotal Sfhtpbhcc6936-02-86 12:02:00* Test Item Value Reference Range Interpretation Comments Total Bilirubin (test code = 1975-2) 0.4 0.2-1.2 [facility] AreaAspartate Amino Transf (AST/SGOT) 2018-07-29 12:02:00* Test Item Value Reference Range Interpretation Comments Aspartate Amino Transf (AST/SGOT) (test code = Aspartate Amino Transf (AST/SGOT)) 20 5-34 [facility] AreaAlanine Aminotransferase (ALT/SGPT) 2018-07-29 12:02:00* Test Item Value Reference Range Interpretation Comments Alanine Aminotransferase (ALT/SGPT) (test code = 1742-6) 12 0-55 [facility] AreaTotal Kqlmxoa7691-39-23 12:02:00* Test Item Value Reference Range Interpretation Comments Total Protein (test code = 2885-2) 8.7 6.5-8.1 H [facility] AreaAlbumin2018-11-20 12:02:00* Test Item Value Reference Range Interpretation Comments Albumin (test code = 1751-7) 2.9 3.5-5.0 L [facility] AreaGlobulin2018-11-20 12:02:00* Test Item Value Reference Range Interpretation Comments Globulin (test code = 26739-9) 5.8 2.3-3.5 H [facility] AreaAlbumin/Globulin Bszzn0471-82-43 12:02:00 * Test Item Value Reference Range Interpretation Comments Albumin/Globulin Ratio (test code = 1759-0) 0.5 0.8-2.0 L [facility] AreaAlkaline Abquhunmzqe3651-28-45 12:02:00* Test Item Value Reference Range Interpretation Comments Alkaline Phosphatase (test code = 6768-6) 20 40-150 L [facility] AreaLipase2018-11-20 12:02:00* Test Item Value Reference Range Interpretation Comments Lipase (test code = 3040-3) 52 8-78 [facility] Clubodium Oracq1419-75-20 12:02:00* Test Item Value Reference Range Interpretation Comments Sodium Level (test code = 2951-2) 132 136-145 L [facility] AreaPotassium Sprmq9451-57-25 12:02:00* Test Item Value Reference Range Interpretation Comments Potassium Level (test code = 2823-3) 3.4 3.5-5.1 L [facility] AreaChloride Rzqzy0963-89-43 12:02:00* Test Item Value Reference Range Interpretation Comments Chloride Level (test code = 2075-0) 101 98-107 [facility] AreaCarbon Dioxide Riobg9497-63-90 12:02:00* Test Item Value Reference Range Interpretation Comments Carbon Dioxide Level (test code = 2028-9) 26 22-29 [facility] AreaAnion Axa2455-30-17 12:02:00* Test Item Value Reference Range Interpretation Comments Anion Gap (test code = 47476-6) 8.4 8-16 [facility] AreaBlood Urea Wxeboqvn8105-99-63 12:02:00* Test Item Value Reference Range Interpretation Comments Blood Urea Nitrogen (test code = 3094-0) 13 - [facility] AreaCreatinine2018-11-20 12:02:00* Test Item Value Reference Range Interpretation Comments Creatinine (test code = 2160-0) 1.11 0.57-1.11 [facility] AreaBUN/Creatinine Mkmbk0581-70-10 12:02:00* Test Item Value Reference Range Interpretation Comments BUN/Creatinine Ratio (test code = 3097-3) 12 03-03 [facility] AreaEstimat Glomerular Filtration Rate 2018-07-29 12:02:00* Test Item Value Reference Range Interpretation Comments Estimat Glomerular Filtration Rate (test code = 372212979) > 60 >60 Ranges were taken from the National Kidney Disease Education Program and the [facility] Kidney Foundation literature.Reference ranges:60 or greater: Otkefn77-40 ( for 3 consecutive months): Chronic kidney disease 15 or less: Kidney failureCorpus Christi Medical Center Bay AreaGlucose Zgzsi4547-98-04 12:02:00* Test Item Value Reference Range Interpretation Comments Glucose Level (test code = OBO8900) 124 74-118 H [facility] AreaCalcium Dykbx9499-13-09 12:02:00* Test Item Value Reference Range Interpretation Comments Calcium Level (test code = 27320-4) 8.7 8.4-10.2 [facility] AreaTotal Sucfhxxcu9306-68-50 12:02:00* Test Item Value Reference Range Interpretation Comments Total Bilirubin (test code = 1975-2) 0.4 0.2-1.2 [facility] AreaAspartate Amino Transf (AST/SGOT) 2018-07-29 12:02:00* Test Item Value Reference Range Interpretation Comments Aspartate Amino Transf (AST/SGOT) (test code = Aspartate Amino Transf (AST/SGOT)) 20 5-34 [facility] AreaAlanine Aminotransferase (ALT/SGPT) 2018-07-29 12:02:00* Test Item Value Reference Range Interpretation Comments Alanine Aminotransferase (ALT/SGPT) (test code = 1742-6) 12 0-55 [facility] AreaTotal Pwsdqll8010-59-01 12:02:00* Test Item Value Reference Range Interpretation Comments Total Protein (test code = 2885-2) 8.7 6.5-8.1 H [facility] AreaAlbumin2018-11-20 12:02:00* Test Item Value Reference Range Interpretation Comments Albumin (test code = 1751-7) 2.9 3.5-5.0 L [facility] AreaGlobulin2018-11-20 12:02:00* Test Item Value Reference Range Interpretation Comments Globulin (test code = 28588-6) 5.8 2.3-3.5 H [facility] AreaAlbumin/Globulin Vcycx1048-62-94 12:02:00 * Test Item Value Reference Range Interpretation Comments Albumin/Globulin Ratio (test code = 1759-0) 0.5 0.8-2.0 L [facility] AreaAlkaline Lzeybzndpxe6151-62-40 12:02:00* Test Item Value Reference Range Interpretation Comments Alkaline Phosphatase (test code = 6768-6) 20 40-150 L [facility] AreaLipase2018-11-20 12:02:00* Test Item Value Reference Range Interpretation Comments Lipase (test code = 3040-3) 52 8-78 [facility] AreaLipase2018-11-20 12:02:00* Test Item Value Reference Range Interpretation Comments Lipase (test code = 3040-3) 52 8-78 [facility] AreaWhite Blood Ypyzg9767-15-18 11:42:00* Test Item Value Reference Range Interpretation Comments White Blood Count (test code = 6690-2) 9.60 4.8-10.8 [facility] AreaRed Blood Hgfga0178-95-03 11:42:00* Test Item Value Reference Range Interpretation Comments Red Blood Count (test code = 789-8) 3.32 3.6-5.1 L [facility] AreaHemoglobin2018-11-20 11:42:00* Test Item Value Reference Range Interpretation Comments Hemoglobin (test code = 81096-7) 10.1 12.0-16.0 L [facility] AreaHematocrit2018-11-20 11:42:00* Test Item Value Reference Range Interpretation Comments Hematocrit (test code = 4544-3) 31.6 34.2-44.1 L [facility] AreaMean Corpuscular Vrfjhp6560-48-75 11:42:00* Test Item Value Reference Range Interpretation Comments Mean Corpuscular Volume (test code = 787-2) 95.2 81-99 [facility] AreaMean Corpuscular Uflbmmpmuv8717-99-55 11:42:00* Test Item Value Reference Range Interpretation Comments Mean Corpuscular Hemoglobin (test code = 785-6) 30.4 28-32 [facility] AreaMean Corpuscular Hemoglobin Concent 2018-07-29 11:42:00* Test Item Value Reference Range Interpretation Comments Mean Corpuscular Hemoglobin Concent (test code = 786-4) 32.0 31-35 [facility] AreaRed Cell Distribution Lclbq2004-29-66 11:42:00* Test Item Value Reference Range Interpretation Comments Red Cell Distribution Width (test code = 24071-2) 13.5 11.7 -14.4 [facility] AreaPlatelet Vyxxt7952-11-67 11:42:00* Test Item Value Reference Range Interpretation Comments Platelet Count (test code = 777-3) 249 140-360 [facility] AreaNeutrophils (%) (Auto)2018-07-29 11:42:00 * Test Item Value Reference Range Interpretation Comments Neutrophils (%) (Auto) (test code = 17436-0) 75.8 38.7-80.0 [facility] AreaLymphocytes (%) (Auto)2018-07-29 11:42:00 * Test Item Value Reference Range Interpretation Comments Lymphocytes (%) (Auto) (test code = 736-9) 19.3 18.0-39.1 [facility] AreaMonocytes (%) (Auto)2018-07-29 11:42:00* Test Item Value Reference Range Interpretation Comments Monocytes (%) (Auto) (test code = 5905-5) 4.3 4.4-11.3 L [facility] AreaEosinophils (%) (Auto)2018-07-29 11:42:00 * Test Item Value Reference Range Interpretation Comments Eosinophils (%) (Auto) (test code = 713-8) 0.0 0.0-6.0 [facility] AreaBasophils (%) (Auto)2018-07-29 11:42:00* Test Item Value Reference Range Interpretation Comments Basophils (%) (Auto) (test code = 706-2) 0.2 0.0-1.0 [facility] AreaIM GRANULOCYTES %2018-07-29 11:42:00* Test Item Value Reference Range Interpretation Comments IM GRANULOCYTES % (test code = IM GRANULOCYTES %) 0.4 0.0- 1.0 [facility] AreaNeutrophils # (Auto)2018-07-29 11:42:00* Test Item Value Reference Range Interpretation Comments Neutrophils # (Auto) (test code = 751-8) 7.3 2.1-6.9 H [facility] AreaLymphocytes # (Auto)2018-07-29 11:42:00* Test Item Value Reference Range Interpretation Comments Lymphocytes # (Auto) (test code = 43118-8) 1.9 1.0-3.2 [facility] AreaMonocytes # (Auto)2018-07-29 11:42:00* Test Item Value Reference Range Interpretation Comments Monocytes # (Auto) (test code = 742-7) 0.4 0.2-0.8 [facility] AreaEosinophils # (Auto)2018-07-29 11:42:00* Test Item Value Reference Range Interpretation Comments Eosinophils # (Auto) (test code = 711-2) 0.0 0.0-0.4 [facility] AreaBasophils # (Auto)2018-07-29 11:42:00* Test Item Value Reference Range Interpretation Comments Basophils # (Auto) (test code = 704-7) 0.0 0.0-0.1 [facility] AreaAbsolute Immature Granulocyte (auto 2018-07-29 11:42:00* Test Item Value Reference Range Interpretation Comments Absolute Immature Granulocyte (auto (dana t code = Absolute Immature Granulocyte (auto) 0.04 0-0.1 [facility] AreaWhite Blood Uqxfp8677-31-87 11:42:00* Test Item Value Reference Range Interpretation Comments White Blood Count (test code = 6690-2) 9.60 4.8-10.8 [facility] AreaRed Blood Lwppf3295-41-10 11:42:00* Test Item Value Reference Range Interpretation Comments Red Blood Count (test code = 789-8) 3.32 3.6-5.1 L [facility] AreaHemoglobin2018-11-20 11:42:00* Test Item Value Reference Range Interpretation Comments Hemoglobin (test code = 59485-0) 10.1 12.0-16.0 L [facility] AreaHematocrit2018-11-20 11:42:00* Test Item Value Reference Range Interpretation Comments Hematocrit (test code = 4544-3) 31.6 34.2-44.1 L [facility] AreaMean Corpuscular Zkleog7092-64-79 11:42:00* Test Item Value Reference Range Interpretation Comments Mean Corpuscular Volume (test code = 787-2) 95.2 81-99 [facility] AreaMean Corpuscular Alslnvgzux0191-93-08 11:42:00* Test Item Value Reference Range Interpretation Comments Mean Corpuscular Hemoglobin (test code = 785-6) 30.4 28-32 [facility] Hemoglobin Concent 2018-07-29 11:42:00* Test Item Value Reference Range Interpretation Comments Mean Corpuscular Hemoglobin Concent (test code = 786-4) 32.0 31-35 [facility] AreaRed Cell Distribution Kezjx2012-33-68 11:42:00* Test Item Value Reference Range Interpretation Comments Red Cell Distribution Width (test code = 03960-3) 13.5 11.7 -14.4 [facility] AreaPlatelet Wsagh6007-64-25 11:42:00* Test Item Value Reference Range Interpretation Comments Platelet Count (test code = 777-3) 249 140-360 [facility] AreaNeutrophils (%) (Auto)2018-07-29 11:42:00 * Test Item Value Reference Range Interpretation Comments Neutrophils (%) (Auto) (test code = 95377-9) 75.8 38.7-80.0 [facility] AreaLymphocytes (%) (Auto)2018-07-29 11:42:00 * Test Item Value Reference Range Interpretation Comments Lymphocytes (%) (Auto) (test code = 736-9) 19.3 18.0-39.1 [facility] AreaMonocytes (%) (Auto)2018-07-29 11:42:00* Test Item Value Reference Range Interpretation Comments Monocytes (%) (Auto) (test code = 5905-5) 4.3 4.4-11.3 [facility] [facility]Eosinophils (%) (Auto)2018-07-29 11:42:00 * Test Item Value Reference Range Interpretation Comments Eosinophils (%) (Auto) (test code = 713-8) 0.0 0.0-6.0 [facility]ophils (%) (Auto)2018-07-29 11:42:00* Test Item Value Reference Range Interpretation Comments Basophils (%) (Auto) (test code = 706-2) 0.2 0.0-1.0 [facility] AreaIM GRANULOCYTES %2018-07-29 11:42:00* Test Item Value Reference Range Interpretation Comments IM GRANULOCYTES % (test code = IM GRANULOCYTES %) 0.4 0.0- 1.0 [facility] AreaNeutrophils # (Auto)2018-07-29 11:42:00* Test Item Value Reference Range Interpretation Comments Neutrophils # (Auto) (test code = 751-8) 7.3 2.1-6.9 H [facility] AreaLymphocytes # (Auto)2018-07-29 11:42:00* Test Item Value Reference Range Interpretation Comments Lymphocytes # (Auto) (test code = 94320-7) 1.9 1.0-3.2 [facility] AreaMonocytes # (Auto)2018-07-29 11:42:00* Test Item Value Reference Range Interpretation Comments Monocytes # (Auto) (test code = 742-7) 0.4 0.2-0.8 [facility] AreaEosinophils # (Auto)2018-07-29 11:42:00* Test Item Value Reference Range Interpretation Comments Eosinophils # (Auto) (test code = 711-2) 0.0 0.0-0.4 [facility] AreaBasophils # (Auto)2018-07-29 11:42:00* Test Item Value Reference Range Interpretation Comments Basophils # (Auto) (test code = 704-7) 0.0 0.0-0.1 [facility] AreaAbsolute Immature Granulocyte (auto 2018-07-29 11:42:00* Test Item Value Reference Range Interpretation Comments Absolute Immature Granulocyte (auto (dana t code = Absolute Immature Granulocyte (auto) 0.04 0-0.1 [facility] Clubodium Qaweh1160-14-41 07:08:00* Test Item Value Reference Range Interpretation Comments Sodium Level (test code = 2951-2) 134 136-145 L [facility] AreaPotassium Wjfyj2048-51-35 07:08:00* Test Item Value Reference Range Interpretation Comments Potassium Level (test code = 2823-3) 4.2 3.5-5.1 [facility] AreaChloride Uvvkk1330-36-99 07:08:00* Test Item Value Reference Range Interpretation Comments Chloride Level (test code = 2075-0) 104 98-107 [facility] AreaCarbon Dioxide Jujpi3536-46-41 07:08:00* Test Item Value Reference Range Interpretation Comments Carbon Dioxide Level (test code = 2028-9) 23 22-29 [facility] AreaAnion Lhp0102-04-80 07:08:00* Test Item Value Reference Range Interpretation Comments Anion Gap (test code = 26909-1) 11.2 8-16 [facility] AreaBlood Urea Ktzoczjb1215-61-48 07:08:00* Test Item Value Reference Range Interpretation Comments Blood Urea Nitrogen (test code = 3094-0) 19 7-26 [facility] AreaCreatinine2018-08-25 07:08:00* Test Item Value Reference Range Interpretation Comments Creatinine (test code = 2160-0) 0.88 0.57-1.11 [facility] AreaBUN/Creatinine Iimok1657-67-91 07:08:00* Test Item Value Reference Range Interpretation Comments BUN/Creatinine Ratio (test code = 3097-3) 22 03-03 [facility] AreaEstimat Glomerular Filtration Rate 2018-05-03 07:08:00* Test Item Value Reference Range Interpretation Comments Estimat Glomerular Filtration Rate (test code = 59841-7) 60- >60 Ranges were taken from the National Kidney Disease Education Program and the [facility] Kidney Foundation literature.Reference ranges:60 or greater: Zhlvdp51-78 ( for 3 consecutive months): Chronic kidney disease 15 or less: Kidney failureCorpus Christi [facility] Center Bay AreaGlucose Ltxon5771-24-01 07:08:00* Test Item Value Reference Range Interpretation Comments Glucose Level (test code = JLY9751) 100 74-118 [facility] AreaCalcium Rrmep1925-09-54 07:08:00* Test Item Value Reference Range Interpretation Comments Calcium Level (test code = 53998-8) 8.5 8.4-10.2 [facility] AreaWhite Blood Gbadc7279-82-08 06:46:00* Test Item Value Reference Range Interpretation Comments White Blood Count (test code = 6690-2) 4.82 4.8-10.8 [facility] AreaRed Blood Kvzuy7058-51-61 06:46:00* Test Item Value Reference Range Interpretation Comments Red Blood Count (test code = 789-8) 2.77 3.6-5.1 L [facility] AreaHemoglobin2018-08-25 06:46:00* Test Item Value Reference Range Interpretation Comments Hemoglobin (test code = 20280-4) 8.5 12.0-16.0 L [facility] AreaHematocrit2018-08-25 06:46:00* Test Item Value Reference Range Interpretation Comments Hematocrit (test code = 4544-3) 25.9 34.2-44.1 L [facility] AreaMean Corpuscular Evadee6691-18-77 06:46:00* Test Item Value Reference Range Interpretation Comments Mean Corpuscular Volume (test code = 787-2) 93.5 81-99 [facility] AreaMean Corpuscular Gqiaebchhh3936-86-99 06:46:00* Test Item Value Reference Range Interpretation Comments Mean Corpuscular Hemoglobin (test code = 785-6) 30.7 28-32 [facility] AreaMean Corpuscular Hemoglobin Concent 2018-05-03 06:46:00* Test Item Value Reference Range Interpretation Comments Mean Corpuscular Hemoglobin Concent (test code = 786-4) 32.8 31-35 [facility] AreaRed Cell Distribution Vbfep7776-80-53 06:46:00* Test Item Value Reference Range Interpretation Comments Red Cell Distribution Width (test code = 94766-6) 14.1 11.7 -14.4 [facility] AreaPlatelet Mcieq6947-15-16 06:46:00* Test Item Value Reference Range Interpretation Comments Platelet Count (test code = 777-3) 204 140-360 [facility] AreaNeutrophils (%) (Auto)2018-05-03 06:46:00 * Test Item Value Reference Range Interpretation Comments Neutrophils (%) (Auto) (test code = 65966-4) 59.1 38.7-80.0 [facility] AreaLymphocytes (%) (Auto)2018-05-03 06:46:00 * Test Item Value Reference Range Interpretation Comments Lymphocytes (%) (Auto) (test code = 736-9) 35.7 18.0-39.1 [facility] AreaMonocytes (%) (Auto)2018-05-03 06:46:00* Test Item Value Reference Range Interpretation Comments Monocytes (%) (Auto) (test code = 5905-5) 4.6 4.4-11.3 [facility] AreaEosinophils (%) (Auto)2018-05-03 06:46:00 * Test Item Value Reference Range Interpretation Comments Eosinophils (%) (Auto) (test code = 713-8) 0.2 0.0-6.0 [facility] AreaBasophils (%) (Auto)2018-05-03 06:46:00* Test Item Value Reference Range Interpretation Comments Basophils (%) (Auto) (test code = 706-2) 0.2 0.0-1.0 [facility] AreaIM GRANULOCYTES %2018-05-03 06:46:00* Test Item Value Reference Range Interpretation Comments IM GRANULOCYTES % (test code = IM GRANULOCYTES %) 0.2 0.0- 1.0 [facility] AreaNeutrophils # (Auto)2018-05-03 06:46:00* Test Item Value Reference Range Interpretation Comments Neutrophils # (Auto) (test code = 751-8) 2.9 2.1-6.9 [facility] AreaLymphocytes # (Auto)2018-05-03 06:46:00* Test Item Value Reference Range Interpretation Comments Lymphocytes # (Auto) (test code = 20319-4) 1.7 1.0-3.2 [facility] AreaMonocytes # (Auto)2018-05-03 06:46:00* Test Item Value Reference Range Interpretation Comments Monocytes # (Auto) (test code = 742-7) 0.2 0.2-0.8 [facility] AreaEosinophils # (Auto)2018-05-03 06:46:00* Test Item Value Reference Range Interpretation Comments Eosinophils # (Auto) (test code = 711-2) 0.0 0.0-0.4 [facility] AreaBasophils # (Auto)2018-05-03 06:46:00* Test Item Value Reference Range Interpretation Comments Basophils # (Auto) (test code = 704-7) 0.0 0.0-0.1 [facility] AreaAbsolute Immature Granulocyte (auto 2018-05-03 06:46:00* Test Item Value Reference Range Interpretation Comments Absolute Immature Granulocyte (auto (dana t code = Absolute Immature Granulocyte (auto) 0.01 0-0.1 [facility] AreaUrine Gdgw7007-13-04 09:56:00* Test Item Value Reference Range Interpretation Comments Urine Test (test code = 2106-3) NEGATIVE NEGATIVE [facility] AreaUrine Geav3381-51-57 09:56:00* Test Item Value Reference Range Interpretation Comments Urine Test (test code = 2106-3) NEGATIVE NEGATIVE [facility] AreaVitamin B12 Bbanr0938-94-11 08:03:00* Test Item Value Reference Range Interpretation Comments Vitamin B12 Level (test code = 29887-7) 560 213816 [facility] AreaFolate2018-08-23 08:03:00* Test Item Value Reference Range Interpretation Comments Folate (test code = 2284-8) 7.6 7.0-15.4 [facility] AreaVitamin B12 Vdyvs6293-99-03 08:03:00* Test Item Value Reference Range Interpretation Comments Vitamin B12 Level (test code = 67463-1) 560 213816 [facility] AreaFolate2018-08-23 08:03:00* Test Item Value Reference Range Interpretation Comments Folate (test code = 2284-8) 7.6 7.0-15.4 [facility] AreaVitamin B12 Dafhh0526-86-08 08:03:00* Test Item Value Reference Range Interpretation Comments Vitamin B12 Level (test code = 42063-6) 560 213816 [facility] AreaFolate2018-08-23 08:03:00* Test Item Value Reference Range Interpretation Comments Folate (test code = 2284-8) 7.6 7.0-15.4 [facility] AreaVitamin B12 Fodxm7637-55-55 08:03:00* Test Item Value Reference Range Interpretation Comments Vitamin B12 Level (test code = 44708-2) 961 802-442 [facility] AreaFolate2018-08-23 08:03:00* Test Item Value Reference Range Interpretation Comments Folate (test code = 2284-8) 7.6 7.0-15.4 [facility] AreaDifferential Total Cells Counted 2018-05-01 07:51:00* Test Item Value Reference Range Interpretation Comments Differential Total Cells Counted (test code = Differen tial Total Cells Counted) 100 [facility] AreaNeutrophils % (Manual)2018-05-01 07:51:00 * Test Item Value Reference Range Interpretation Comments Neutrophils % (Manual) (test code = 71249-9) 61 40-74 [facility] AreaLymphocytes % (Manual)2018-05-01 07:51:00 * Test Item Value Reference Range Interpretation Comments Lymphocytes % (Manual) (test code = 737-7) 31 19-48 [facility] AreaMonocytes % (Manual)2018-05-01 07:51:00* Test Item Value Reference Range Interpretation Comments Monocytes % (Manual) (test code = 744-3) 6 3.4-9.0 [facility] AreaEosinophils % (Manual)2018-05-01 07:51:00 * Test Item Value Reference Range Interpretation Comments Eosinophils % (Manual) (test code = 714-6) 1 0-7 [facility] AreaMyelocytes %2018-05-01 07:51:00* Test Item Value Reference Range Interpretation Comments Myelocytes % (test code = 749-2) 1 0-0 H [facility] AreaPlatelet Wvwcnift8538-16-94 07:51:00* Test Item Value Reference Range Interpretation Comments Platelet Estimate (test code = 28089-0) ADEQUATE [facility] AreaPlatelet Morphology Vobzmpl3916-59-07 07:51:00* Test Item Value Reference Range Interpretation Comments Platelet Morphology Comment (test code = 15693-1) NORMAL [facility] AreaHypochromasia2018-08-23 07:51:00* Test Item Value Reference Range Interpretation Comments Hypochromasia (test code = 728-6) MODERATE [facility] AreaRed Cell Morphology Lynrwzq1992-32-19 07:51:00* Test Item Value Reference Range Interpretation Comments Red Cell Morphology Comment (test code = 6742-1) NORMAL [facility] AreaDifferential Total Cells Counted 2018-05-01 07:51:00* Test Item Value Reference Range Interpretation Comments Differential Total Cells Counted (test code = Differen tial Total Cells Counted) 100 [facility] AreaNeutrophils % (Manual)2018-05-01 07:51:00 * Test Item Value Reference Range Interpretation Comments Neutrophils % (Manual) (test code = 96615-9) 61 40-74 [facility] AreaLymphocytes % (Manual)2018-05-01 07:51:00 * Test Item Value Reference Range Interpretation Comments Lymphocytes % (Manual) (test code = 737-7) 31 19-48 [facility] AreaMonocytes % (Manual)2018-05-01 07:51:00* Test Item Value Reference Range Interpretation Comments Monocytes % (Manual) (test code = 744-3) 6 3.4-9.0 [facility] AreaEosinophils % (Manual)2018-05-01 07:51:00 * Test Item Value Reference Range Interpretation Comments Eosinophils % (Manual) (test code = 714-6) 1 0-7 [facility] AreaMyelocytes %2018-05-01 07:51:00* Test Item Value Reference Range Interpretation Comments Myelocytes % (test code = 749-2) 1 0-0 H [facility] AreaPlatelet Cdhfgxwr2652-09-30 07:51:00* Test Item Value Reference Range Interpretation Comments Platelet Estimate (test code = 66725-0) ADEQUATE [facility] AreaPlatelet Morphology Qbnwvzi2772-86-56 07:51:00* Test Item Value Reference Range Interpretation Comments Platelet Morphology Comment (test code = 48866-5) NORMAL [facility] AreaHypochromasia2018-08-23 07:51:00* Test Item Value Reference Range Interpretation Comments Hypochromasia (test code = 728-6) MODERATE [facility] AreaRed Cell Morphology Pwbegca8771-20-57 07:51:00* Test Item Value Reference Range Interpretation Comments Red Cell Morphology Comment (test code = 6742-1) NORMAL [facility] AreaDifferential Total Cells Counted 2018-05-01 07:51:00* Test Item Value Reference Range Interpretation Comments Differential Total Cells Counted (test code = Differbrigid tial Total Cells Counted) 100 [facility] AreaNeutrophils % (Manual)2018-05-01 07:51:00 * Test Item Value Reference Range Interpretation Comments Neutrophils % (Manual) (test code = 44976-4) 61 40-74 [facility] AreaLymphocytes % (Manual)2018-05-01 07:51:00 * Test Item Value Reference Range Interpretation Comments Lymphocytes % (Manual) (test code = 737-7) 31 19-48 [facility] AreaMonocytes % (Manual)2018-05-01 07:51:00* Test Item Value Reference Range Interpretation Comments Monocytes % (Manual) (test code = 744-3) 6 3.4-9.0 [facility] AreaEosinophils % (Manual)2018-05-01 07:51:00 * Test Item Value Reference Range Interpretation Comments Eosinophils % (Manual) (test code = 714-6) 1 0-7 [facility] AreaMyelocytes %2018-05-01 07:51:00* Test Item Value Reference Range Interpretation Comments Myelocytes % (test code = 749-2) 1 0-0 H [facility] AreaPlatelet Snfoumpk3968-60-16 07:51:00* Test Item Value Reference Range Interpretation Comments Platelet Estimate (test code = 46667-3) ADEQUATE [facility] AreaPlatelet Morphology Pvipvgm1408-16-17 07:51:00* Test Item Value Reference Range Interpretation Comments Platelet Morphology Comment (test code = 20033-8) NORMAL [facility] AreaHypochromasia2018-08-23 07:51:00* Test Item Value Reference Range Interpretation Comments Hypochromasia (test code = 728-6) MODERATE [facility] AreaRed Cell Morphology Tejqhcl5263-84-67 07:51:00* Test Item Value Reference Range Interpretation Comments Red Cell Morphology Comment (test code = 6742-1) NORMAL [facility] AreaDifferential Total Cells Counted 2018-05-01 07:51:00* Test Item Value Reference Range Interpretation Comments Differential Total Cells Counted (test code = [place] Total Cells Counted) 100 [facility] AreaNeutrophils % (Manual)2018-05-01 07:51:00 * Test Item Value Reference Range Interpretation Comments Neutrophils % (Manual) (test code = 76383-3) 61 40-74 [facility] AreaLymphocytes % (Manual)2018-05-01 07:51:00 * Test Item Value Reference Range Interpretation Comments Lymphocytes % (Manual) (test code = 737-7) 31 19-48 [facility] AreaMonocytes % (Manual)2018-05-01 07:51:00* Test Item Value Reference Range Interpretation Comments Monocytes % (Manual) (test code = 744-3) 6 3.4-9.0 [facility] AreaEosinophils % (Manual)2018-05-01 07:51:00 * Test Item Value Reference Range Interpretation Comments Eosinophils % (Manual) (test code = 714-6) 1 0-7 [facility] AreaMyelocytes %2018-05-01 07:51:00* Test Item Value Reference Range Interpretation Comments Myelocytes % (test code = 749-2) 1 0-0 H [facility] AreaPlatelet Tdppgsul0449-49-35 07:51:00* Test Item Value Reference Range Interpretation Comments Platelet Estimate (test code = 18437-0) ADEQUATE [facility] AreaPlatelet Morphology Wlzraxm8341-65-00 07:51:00* Test Item Value Reference Range Interpretation Comments Platelet Morphology Comment (test code = 93142-6) NORMAL [facility] AreaHypochromasia2018-08-23 07:51:00* Test Item Value Reference Range Interpretation Comments Hypochromasia (test code = 728-6) MODERATE [facility] AreaRed Cell Morphology Grvtuey7046-89-47 07:51:00* Test Item Value Reference Range Interpretation Comments Red Cell Morphology Comment (test code = 6742-1) NORMAL [facility] AreaFerritin2018-08-23 07:50:00* Test Item Value Reference Range Interpretation Comments Ferritin (test code = 2276-4) 203.96 4.63-204.00 [facility] AreaFerritin2018-08-23 07:50:00* Test Item Value Reference Range Interpretation Comments Ferritin (test code = 2276-4) 203.96 4.63-204.00 [facility] AreaFerritin2018-08-23 07:50:00* Test Item Value Reference Range Interpretation Comments Ferritin (test code = 2276-4) 203.96 4.63-204.00 [facility] AreaFerritin2018-08-23 07:50:00* Test Item Value Reference Range Interpretation Comments Ferritin (test code = 2276-4) 203.96 4.63-204.00 [facility]2018-08-23 07:17:00* Test Item Value Reference Range Interpretation Comments Iron Level (test code = 2498-4) 15 50-170 L [facility] AreaTotal Iron Binding Aqgozhpt1495-44-36 07:17:00* Test Item Value Reference Range Interpretation Comments Total Iron Binding Capacity (test code = 2500-7) 221 261-4 78 L [facility] AreaPercent Iron Rjtaxijfsq0674-21-18 07:17:00* Test Item Value Reference Range Interpretation Comments Percent Iron Saturation (test code = 2502-3) 7 15-50 L [facility] AreaTransferrin2018-08-23 07:17:00* Test Item Value Reference Range Interpretation Comments Transferrin (test code = 3034-6) 158 180-382 L [facility]2018-08-23 07:17:00* Test Item Value Reference Range Interpretation Comments Iron Level (test code = 2498-4) 15 50-170 L [facility] AreaTotal Iron Binding Qboavtvm6438-14-46 07:17:00* Test Item Value Reference Range Interpretation Comments Total Iron Binding Capacity (test code = 2500-7) 221 261-4 78 L [facility] AreaPerwil[facility] health Iron Rzsfvejwhn6814-88-70 07:17:00* Test Item Value Reference Range Interpretation Comments Percent Iron Saturation (test code = 2502-3) 7 15-50 L [facility] AreaTransferrin2018-08-23 07:17:00* Test Item Value Reference Range Interpretation Comments Transferrin (test code = 3034-6) 158 180-382 L [facility]2018-08-23 07:17:00* Test Item Value Reference Range Interpretation Comments Iron Level (test code = 2498-4) 15 50-170 L [facility] Iron Binding Zlsospsc4073-45-60 07:17:00* Test Item Value Reference Range Interpretation Comments Total Iron Binding Capacity (test code = 2500-7) 221 261-[address] [facility] Iron Xwlbzhssod9056-17-24 07:17:00* Test Item Value Reference Range Interpretation Comments Percent Iron Saturation (test code = 2502-3) 7 15-50 L [facility] AreaTransferrin2018-08-23 07:17:00* Test Item Value Reference Range Interpretation Comments Transferrin (test code = 3034-6) 158 180-382 L [facility]2018-08-23 07:17:00* Test Item Value Reference Range Interpretation Comments Iron Level (test code = 2498-4) 15 50-170 L [facility] Iron Binding Jmwbzrta8049-86-02 07:17:00* Test Item Value Reference Range Interpretation Comments Total Iron Binding Capacity (test code = 2500-7) 221 261-[address] [facility] Iron Ejldakchol8854-18-03 07:17:00* Test Item Value Reference Range Interpretation Comments Percent Iron Saturation (test code = 2502-3) 7 15-50 L [facility] AreaTransferrin2018-08-23 07:17:00* Test Item Value Reference Range Interpretation Comments Transferrin (test code = 3034-6) 158 180-382 L [facility] AreaThyroid Stimulating Hormone (TSH) 2018-04-29 19:02:00* Test Item Value Reference Range Interpretation Comments Thyroid Stimulating Hormone (TSH) (test code = 10067-8) 2.675 0.350-4.940 [facility] AreaAnisocytosis2018-08-21 07:29:00* Test Item Value Reference Range Interpretation Comments Anisocytosis (test code = 702-1) SLIGHT [facility] AreaAnisocytosis2018-08-21 07:29:00* Test Item Value Reference Range Interpretation Comments Anisocytosis (test code = 702-1) SLIGHT [facility] AreaAnisocytosis2018-08-21 07:29:00* Test Item Value Reference Range Interpretation Comments Anisocytosis (test code = 702-1) SLIGHT [facility] AreaAnisocytosis2018-08-21 07:29:00* Test Item Value Reference Range Interpretation Comments Anisocytosis (test code = 702-1) SLIGHT [facility] AreaTotal Dqkikripv9258-52-67 07:27:00* Test Item Value Reference Range Interpretation Comments Total Bilirubin (test code = 1975-2) 0.4 0.2-1.2 [facility] AreaAspartate Amino Transf (AST/SGOT) 2018-04-29 07:27:00* Test Item Value Reference Range Interpretation Comments Aspartate Amino Transf (AST/SGOT) (test code = Aspartate Amino Transf (AST/SGOT)) 20 5-34 [facility] AreaAlanine Aminotransferase (ALT/SGPT) 2018-04-29 07:27:00* Test Item Value Reference Range Interpretation Comments Alanine Aminotransferase (ALT/SGPT) (test code = 1742-6) 10 0-55 [facility] AreaTotal Crgmude2543-50-21 07:27:00* Test Item Value Reference Range Interpretation Comments Total Protein (test code = 2885-2) 8.8 6.5-8.1 H [facility] AreaAlbumin2018-08-21 07:27:00* Test Item Value Reference Range Interpretation Comments Albumin (test code = 1751-7) 3.0 3.5-5.0 L [facility] AreaGlobulin2018-08-21 07:27:00* Test Item Value Reference Range Interpretation Comments Globulin (test code = 82107-7) 5.8 2.3-3.5 H [facility] AreaAlbumin/Globulin Hecmb1885-15-64 07:27:00 * Test Item Value Reference Range Interpretation Comments Albumin/Globulin Ratio (test code = 1759-0) 0.5 0.8-2.0 L [facility] AreaAlkaline Tcictofivqs9587-13-75 07:27:00* Test Item Value Reference Range Interpretation Comments Alkaline Phosphatase (test code = 6768-6) 14 40-150 L [facility] AreaTriglycerides Wnpfl9969-62-59 07:27:00* Test Item Value Reference Range Interpretation Comments Triglycerides Level (test code = 2571-8) 65 0-149 [facility] AreaCholesterol Ydtoz2096-99-74 07:27:00* Test Item Value Reference Range Interpretation Comments Cholesterol Level (test code = 2093-3) 99 0-199 Less than 200 mg/dL Low Wzgv577 - 239 mg/dL Borderline Usat037 m g/dl and greater High Risk [facility] Bay AreaLDL [id number] 07:27:00* Test Item Value Reference Range Interpretation Comments LDL Cholesterol (test code = 2089-1) 57 60-130 [facility] Lzqtluyweik9827-27-65 07:27:00* Test Item Value Reference Range Interpretation Comments HDL Cholesterol (test code = 2085-9) 29 40-60 L [facility]HDL Imkhz1859-12-03 07:27:00 * Test Item Value Reference Range Interpretation Comments Cholesterol/HDL Ratio (test code = 9830-1) 3.4 3.0-3.6 [facility] [id number] 07:27:00* Test Item Value Reference Range Interpretation Comments Triglycerides Level (test code = 2571-8) 65 0-149 [facility] [id number] 07:27:00* Test Item Value Reference Range Interpretation Comments Cholesterol Level (test code = 2093-3) 99 0-199 Less than 200 mg/dL Low Toku369 - 239 mg/dL Borderline Jikn269 m g/dl and greater High Risk [facility] Jmifcziuvkc3641-61-87 07:27:00* Test Item Value Reference Range Interpretation Comments LDL Cholesterol (test code = 2089-1) 57 60-130 L [facility] Knsuwalxzuj5348-91-44 07:27:00* Test Item Value Reference Range Interpretation Comments HDL Cholesterol (test code = 2085-9) 29 40-60 L [facility] Moxno1241-73-32 07:27:00 * Test Item Value Reference Range Interpretation Comments Cholesterol/HDL Ratio (test code = 9830-1) 3.4 3.0-3.6 [facility] [id number] 07:27:00* Test Item Value Reference Range Interpretation Comments Triglycerides Level (test code = 2571-8) 65 0-149 [facility] Iuxoi6012-80-03 07:27:00* Test Item Value Reference Range Interpretation Comments Cholesterol Level (test code = 2093-3) 99 0-199 Less than 200 mg/dL Low Lgmj031 - 239 mg/dL Borderline Kpjs949 m g/dl and greater High Risk [facility] Mgsmicbvaiy8856-79-64 07:27:00* Test Item Value Reference Range Interpretation Comments LDL Cholesterol (test code = 2089-1) 57 60-130 L [facility] Eridvqmyrxq7824-03-30 07:27:00* Test Item Value Reference Range Interpretation Comments HDL Cholesterol (test code = 2085-9) 29 40-60 L [facility] Lybek2694-85-26 07:27:00 * Test Item Value Reference Range Interpretation Comments Cholesterol/HDL Ratio (test code = 9830-1) 3.4 3.0-3.6 [facility] Hqlql6897-31-55 07:27:00* Test Item Value Reference Range Interpretation Comments Triglycerides Level (test code = 2571-8) 65 0-149 [facility] [id number] 07:27:00* Test Item Value Reference Range Interpretation Comments Cholesterol Level (test code = 2093-3) 99 0-199 Less than 200 mg/dL Low Crns154 - 239 mg/dL Borderline Cioo922 m g/dl and greater High Risk [facility] Xkrlwolgrkq3694-67-50 07:27:00* Test Item Value Reference Range Interpretation Comments LDL Cholesterol (test code = 2089-1) 57 60-130 L [facility] Holhndtajvn7200-06-84 07:27:00* Test Item Value Reference Range Interpretation Comments HDL Cholesterol (test code = 2085-9) 29 40-60 L [facility]HDL [id number] 07:27:00 * Test Item Value Reference Range Interpretation Comments Cholesterol/HDL Ratio (test code = 9830-1) 3.4 3.0-3.6 [facility] AreaHemoglobin A1c [id number] 07:26:00 * Test Item Value Reference Range Interpretation Comments Hemoglobin A1c Percent (test code = Hemoglobin A1c Percent) 5.0 4.0-7.0 [facility] A1c [id number] 07:26:00 * Test Item Value Reference Range Interpretation Comments Hemoglobin A1c Percent (test code = Hemoglobin A1c Percent) 5.0 4.0-7.0 [facility] A1c Okaqzbv3716-56-70 07:26:00 * Test Item Value Reference Range Interpretation Comments Hemoglobin A1c Percent (test code = Hemoglobin A1c Percent) 5.0 4.0-7.0 [facility] A1c [id number] 07:26:00 * Test Item Value Reference Range Interpretation Comments Hemoglobin A1c Percent (test code = Hemoglobin A1c Percent) 5.0 4.0-7.0 [facility] AreaProthrombin [id number] 18:29:00* Test Item Value Reference Range Interpretation Comments Prothrombin Time (test code = 5902-2) 14.4 11.9-14.5 [facility] Area[facility]th[facility] Time International Ratio 2018-04-28 18:29:00* Test Item Value Reference Range Interpretation Comments Prothromb Time International Ratio (test code = 6301-6) 1.21 Oral Anticoagulant Therapy INR Values:1. Low Intensity Therapy 1.5 - 2.02 . Moderate Intensity Therapy 2.0 - 3.03. High Intensity Therapy(1) 2.5 - 3. 54. High Intensity Therapy(2) 3.0 - 4.05. Panic Value INR > 5.0 [facility] Partial Thromboplast Time 2018-04-28 18:29:00* Test Item Value Reference Range Interpretation Comments Activated Partial Thromboplast Time (test code = 91384-1) 26.6 23.8-35.5 [facility] Area[facility]throm[facility] [id number] 18:29:00* Test Item Value Reference Range Interpretation Comments Prothrombin Time (test code = 5902-2) 14.4 11.9-14.5 [facility] Time International Ratio 2018-04-28 18:29:00* Test Item Value Reference Range Interpretation Comments Prothromb Time International Ratio (test code = 6301-6) 1.21 Oral Anticoagulant Therapy INR Values:1. Low Intensity Therapy 1.5 - 2.02 . Moderate Intensity Therapy 2.0 - 3.03. High Intensity Therapy(1) 2.5 - 3. 54. High Intensity Therapy(2) 3.0 - 4.05. Panic Value INR > 5.0 [facility] Partial Thromboplast Time 2018-04-28 18:29:00* Test Item Value Reference Range Interpretation Comments Activated Partial Thromboplast Time (test code = 56019-2) 26.6 23.8-35.5 [facility] AreaProthrombin Mxnw6497-48-01 18:29:00* Test Item Value Reference Range Interpretation Comments Prothrombin Time (test code = 5902-2) 14.4 11.9-14.5 [facility] Time International Ratio 2018-04-28 18:29:00* Test Item Value Reference Range Interpretation Comments Prothromb Time International Ratio (test code = 6301-6) 1.21 Oral Anticoagulant Therapy INR Values:1. Low Intensity Therapy 1.5 - 2.02 . Moderate Intensity Therapy 2.0 - 3.03. High Intensity Therapy(1) 2.5 - 3. 54. High Intensity Therapy(2) 3.0 - 4.05. Panic Value INR > 5.0 [facility] Partial Thromboplast Time 2018-04-28 18:29:00* Test Item Value Reference Range Interpretation Comments Activated Partial Thromboplast Time (test code = 09917-0) 26.6 23.8-35.5 [facility]
[2020-05-24 16:57] LABS: INR 0.95; PROTHROMBIN TIME 13.2 seconds (11.9-14.5)
[2020-05-24 16:58] LABS: PARTIAL THROMBOPLASTIN TIME 23.1 seconds (23.8-35.5)
[2020-05-24] MEDS ORDERED: FUROSEMIDE INJ 10 MG/ML 2 ML VIAL IV PRN (17:00)
[2020-05-24] MEDS ORDERED: SODIUM CHLORIDE 0.9% 250ML 250 ML IV ONE (17:00)
--- OUTSIDE RECORDS SUMMARY | 2020-05-24 17:01 | XMS REPORT | Continuity of Care Document ---
Author Author [facility] t Organization [facility] t Address [address] [place] [address] Phone Unavailable Care Team Providers Care Order Processor Name Role Phone KATE MACHADO, MD NOVAK PCP STEPHEN LOVE Attphys Unavailable ERIC VAZQUEZ Attphys Unavailable Elvis RICH Attphys Unavailable MARY MCKAY Attphys Unavailable Mónica COBURN Attphys Unavailable STEPHEN LOVE Admphys Unavailable ELIAS DOSS Admphys Unavailable Payers Payer Name Policy Type Policy Number Effective Date Expiration Date [facility] [id number] 2018 00:00:00 [facility] Problems Condition Name Condition Details Condition Category Status Onset Date Resolution Date Last Treatment Date Treating Clinician Comments Source Torsion of ovary Ovarian torsion Problem Active [facility] Spontaneous Problem Active [facility] Thrombocytopenia Problem Active [facility] Allergies, Adverse Reactions, Alerts Allergy Name Allergy Type Status Severity Reaction(s) Onset Date Inacti ve Date Treating Clinician Comments Source levofloxacin DA Active U 2019-12-11 00:00:00 [facility] Levofloxacin Allergy to substance Active Severe THROAT SWELLS 2018-04-28 00:00:00 [facility] levofloxacin DA Active MO 2018-01-04 00:00:00 [facility] Social History Social Habit Start Date Stop Date Quantity Comments Source Sex Assigned At 1990 00:00:00 1990 00:00:00 Female [facility] Medications Ordered Medication Name Filled Medication Name Start Date Stop Da te Current Medication? Ordering Clinician Indication Dosage Frequency Signature (SIG) Comments Components Source Ferrous Sulfate Ferrous Sulfate 2020-05-16 10:55:00 Yes 325 Every 12 Hours [facility] Tramadol Hcl (Ultram) 50 Mg TABLET Tramadol Hcl (Ultram) 50 Mg TABLET 2020-02-25 12:46:00 2020-05-11 00:00:00 No 50 Every 6 Hours as needed for Abdominal Pain [facility] Labetalol Hcl Labetalol Hcl 2018-05-03 06:43:00 Yes 20 0 Every 12 Hours [facility] Famotidine (Pepcid) 20 Mg TABLET Famotidine (Pepcid) 20 Mg T [facility] 2018-05-03 06:43:00 2020-05-11 00:00:00 No 20 Twice A Day [facility] Ferrous Sulfate Ferrous Sulfate 2018-05-03 06:43:00 2020-05-11 00:00:00 No 325 Twice Daily With Meals [facility] Nifedipine (Nifedipine Er) 30 Mg TAB.ER.24 Nifedipine (Nifedipine Er) 30 Mg TAB.ER.24 2018-05-03 06:43:00 2020-05-11 00:00:00 No 60 Every 12 Hours [facility] Ondansetron (Zofran Odt) 4 Mg TAB.RAPDIS Ondansetron ( Zofran Odt) 4 Mg TAB.RAPDIS 2018-05-03 06:43:00 2020-05-11 00:00:00 No 4 Q4-6H Prn [facility] Nifedipine (Nifedipine Er) 30 Mg TAB.ER.24 Nifedipine (Nifedipine Er) 30 Mg TAB.ER.24 Yes 90 Daily [facility] Acetaminophen With Codeine (Tylenol With Codeine #3 Ta blet) 1 Each TABLET Acetaminophen With Codeine (Tylenol With Codeine #3 Tablet) 1 Each TABLET 2020-05-11 00:00:00 No 300 As Needed [facility] Azithromycin (Z-Feroz) 250 Mg TABLET Azithromycin (Z-Feroz) 250 Mg T ABLET 2020-05-11 00:00:00 No 250 Use As Directed [facility] Cefdinir Cefdinir 2020-05-11 00:00:00 No 300 Daily [facility] Vital Signs Vital Name Observation Time Observation Value Comments Source Body Temperature 2020-05-16 11:14:00 99.0 [degF] [facility] BMI (Body Mass Index) 2020-05-14 00:57:00 43.9 kg/m2 [facility] Weight 2020-05-11 20:28:00 272 [lb_av] [facility] Weight 2020-02-25 09:14:00 268 [lb_av] [facility] BMI (Body Mass Index) 2020-02-25 09:14:00 42.0 kg/m2 [facility] Body Temperature 2019-12-02 17:10:00 98.4 [degF] [facility] Procedures Procedure Date / Time Performed Performing Clinician [facility] e Computed tomography of chest with contrast 2020-05-12 00:00:00 [facility] Computed tomography of abdomen and pelvis with contrast 00:00:00 [facility] Computed tomography of chest with contrast 2019-11-27 00:00:00 ERIC ORTIZ [facility] X-ray of chest, single view 2019-11-24 00:00:00 PETRA RICH [facility] Complete non-obstetrical ultrasound of pelvis 2019-07-22 00: 00:00 JOSE MANUEL COBURN [facility] Computed tomography of abdomen and pelvis with contrast 2018 00:00:00 JOSE MANUEL COBURN [facility] US transvaginal 2019-07-22 00:00:00 JOSE MANUEL COBURN [facility] Limited Doppler ultrasound of vessels of pelvis 2019-07-22 0 0:00:00 CLEVERJOSE MANUEL [facility] LAPAROSCOPY REMOVE ADNEXA 2019-07-22 00:00:00 [facility] Plan of Care Planned Activity Planned Date Details Comments Source Instructions Hypertension [facility] Instructions Thrombocytopenia [facility] Encounters Start Date/Time End Date/Time Encounter Type Admission Type Attendi [facility] Care Department Encounter ID Source 2020-05-11 16:21:00 2020-05-16 13:14:00 Discharged Inpatient 1 STEPHEN LOVE [facility] [id number] [facility] 2020-02-25 09:11:00 2020-02-25 13:00:00 Departed Emergency Room [facility] [id number] [facility] dical [place] 2019-11-28 07:55:00 2019-12-02 19:20:00 Discharged Inpatient 1 VAZQUEZ ERIC [facility] [id number] [facility] 2019-11-24 20:23:00 2019-11-24 23:34:00 Departed Emergency Room 1 JONO RICH [facility] [id number] [facility] 2019-11-23 18:09:00 2019-11-23 21:38:00 Departed Emergency Room 1 MARY MCKAY [facility] [id number] [facility] 2019-07-22 10:13:00 2019-07-24 09:09:00 Discharged Inpatient (obs) 1 JOSE MANUEL COBURN [facility] [id number] [facility] 2019-02-09 18:52:00 2019-02-09 23:23:00 Departed Emergency Room 1 JOSE MANUEL COBURN [facility] [id number] [facility] 2018-12-14 23:09:00 2018-12-15 01:02:00 Departed Emergency Room [facility] [id number] [facility] 2018-07-29 10:29:00 2018-07-29 15:15:00 Departed Emergency Room [facility] [id number] [facility] 2018-04-30 15:59:00 2018-05-03 12:47:00 Discharged Inpatient [facility] [id number] [facility] Results Test Description Test Time Test Comments Results Result Comments Source Blood leukocytes automated count (number/volume) 2020-05-16 05:20:00 Test Item White Blood Count (test code = 6690-2) 10.84 4.8-10.8 [facility] erythrocytes automated count (number/volume)2020-05-16 05:20:00* Test Item Value Reference Range Interpretation Comments Red Blood Count (test code = 789-8) 3.20 3.6-5.1 [facility]icsBlood hemoglobin measurement (moles/volume)2020-05-16 05:20:00* Test Item Value Reference Range Interpretation Comments Hemoglobin (test code = 85005-9) 8.9 12.0-16.0 [facility] ClinicsAutomated blood hematocrit (volume fraction)2020-05-16 05:20:00* Test Item Value Reference Range Interpretation Comments Hematocrit (test code = 4544-3) 28.7 34.2-44.1 [facility] ClinicsAutomated erythrocyte mean corpuscular jmihvx5001-10-94 05:20:00* Test Item Value Reference Range Interpretation Comments Mean Corpuscular Volume (test code = 787-2) 89.7 81-99 [facility] ClinicsAutomated erythrocyte mean corpuscular hemoglobin (mass per erythrocyte)2020-05-16 05:20:00* Test Item Value Reference Range Interpretation Comments Mean Corpuscular Hemoglobin (test code = 785-6) 27.8 28-32 [facility] ClinicsAutomated erythrocyte mean corpuscular hemoglobin concentration measurement (mass/volume)2020-05-16 05:20:00* Test Item Value Reference Range Interpretation Comments Mean Corpuscular Hemoglobin Concent (test code = 786-4) 31.0 31-35 [facility] ClinicsRDW KxsCs-Xqm5434-80-07 05:20:00* Test Item Value Reference Range Interpretation Comments Red Cell Distribution Width (test code = 53187-7) 15.1 11.7 -14.4 [facility] ClinicsAutomated blood platelet count (count/volume)2020-05-16 05:20:00* Test Item Value Reference Range Interpretation Comments Platelet Count (test code = 777-3) 261 140-360 [facility] ClinicsAutbetsy johnson regional hospitaled blood segmented neutrophil count as percentage of total jskouvzimb8988-54-76 05:20:00* Test Item Value Reference Range Interpretation Comments Neutrophils (%) (Auto) (test code = 03384-8) 74.3 38.7-80.0 [facility] ClinicsAutomated blood lymphocyte count as percentage ot total yvsaomlaqz4063-06-18 05:20:00* Test Item Value Reference Range Interpretation Comments Lymphocytes (%) (Auto) (test code = 736-9) 18.6 18.0-39.1 [facility] ClinicsAutomated blood monocyte count as percentage of total khqszquxpa4871-94-12 05:20:00* Test Item Value Reference Range Interpretation Comments Monocytes (%) (Auto) (test code = 5905-5) 5.6 4.4-11.3 [facility] ClinicsAutomated blood eosinophil count as percentage of total kfvohugqbk2366-13-03 05:20:00* Test Item Value Reference Range Interpretation Comments Eosinophils (%) (Auto) (test code = 713-8) 0.0 0.0-6.0 [facility] ClinicsAutomated blood basophil count as percentage of total kqhwpujgmu9956-78-58 05:20:00* Test Item Value Reference Range Interpretation Comments Basophils (%) (Auto) (test code = 706-2) 0.2 0.0-1.0 [facility] ClinicsFluoroscopic procedure less than one hour kuyfunbs8870-14-48 05:20:00* Test Item Value Reference Range Interpretation Comments IM GRANULOCYTES % (test code = IM GRANULOCYTES %) 1.3 0.0- 1.0 [facility] ClinicsAutomated blood neutrophil count 2020-05-16 05:20:00* Test Item Value Reference Range Interpretation Comments Neutrophils # (Auto) (test code = 751-8) 8.1 2.1-6.9 [facility] ClinicsBlood lymphocytes count (number/volume) 2020-05-16 05:20:00* Test Item Value Reference Range Interpretation Comments Lymphocytes # (Auto) (test code = 46288-7) 2.0 1.0-3.2 [facility]icsBlfederal [facility] [place] monocytes automated count (number/volume)2020-05-16 05:20:00* Test Item Value Reference Range Interpretation Comments Monocytes # (Auto) (test code = 742-7) 0.6 0.2-0.8 [facility] ClinicsAutomated blood eosinophil count 2020-05-16 05:20:00* Test Item Value Reference Range Interpretation Comments Eosinophils # (Auto) (test code = 711-2) 0.0 0.0-0.4 [facility] ClinicsAutomated blood basophil count (count/volume)2020-05-16 05:20:00* Test Item Value Reference Range Interpretation Comments Basophils # (Auto) (test code = 704-7) 0.0 0.0-0.1 [facility] ClinicsFluoroscopic procedure less than one hour gdxxpfkw0564-47-06 05:20:00* Test Item Value Reference Range Interpretation Comments Absolute Immature Granulocyte (auto (dana t code = Absolute Immature Granulocyte (auto) 0.14 0-0.1 [facility] sodium measurement (moles/volume)2020-05-16 05:20:00* Test Item Value Reference Range Interpretation Comments Sodium Level (test code = 2951-2) 129 136-145 [facility] plasma potassium measurement (moles/volume)2020-05-16 05:20:00* Test Item Value Reference Range Interpretation Comments Potassium Level (test code = 2823-3) 4.5 3.5-5.1 [facility] plasma chloride measurement (moles/volume)2020-05-16 05:20:00* Test Item Value Reference Range Interpretation Comments Chloride Level (test code = 2075-0) 103 98-107 [facility] plasma carbon dioxide, total measurement (moles/volume)2020-05-16 05:20:00* Test Item Value Reference Range Interpretation Comments Carbon Dioxide Level (test code = 2028-9) 19 22-29 [facility] plasma anion wxr2528-58-48 05:20:00* Test Item Value Reference Range Interpretation Comments Anion Gap (test code = 46382-2) 11.5 8-16 [facility] plasma urea nitrogen measurement (mass/volume)2020-05-16 05:20:00* Test Item Value Reference Range Interpretation Comments Blood Urea Nitrogen (test code = 3094-0) 25 7-26 [facility] plasma creatinine measurement (mass/volume)2020-05-16 05:20:00* Test Item Value Reference Range Interpretation Comments Creatinine (test code = 2160-0) 1.11 0.57-1.11 [facility] plasma urea nitrogen/creatinine mass yjstd2340-70-35 05:20:00* Test Item Value Reference Range Interpretation Comments BUN/Creatinine Ratio (test code = 3097-3) 23 6-25 [facility] ClinicsEstimated glomerular filtration rate (GFR) zubtjdxnwnmqj2777-20-12 05:20:00* Test Item Value Reference Range Interpretation Comments Estimat Glomerular Filtration Rate (test code = 860051666) > 60 >60 Ranges were taken from the National Kidney Disease Education Program and the [facility] literature.Reference ranges:60 or greater: Iioise74-62 ( for 3 consecutive months): Chronic kidney disease 15 or less: Kidney failureEast [facility] Hospital and ClinicsGlucose xdkmtcnxxaj5379-53-26 05:20:00* Test Item Value Reference Range Interpretation Comments Glucose Level (test code = FVN9140) 133 74-118 [facility] plasma calcium measurement (mass/volume)2020-05-16 05:20:00* Test Item Value Reference Range Interpretation Comments Calcium Level (test code = 96401-2) 8.3 8.4-10.2 [facility] plasma total bilirubin measurement (mass/volume)2020-05-16 05:20:00* Test Item Value Reference Range Interpretation Comments Total Bilirubin (test code = 1975-2) 0.3 0.2-1.2 [facility] ClinicsFluoroscopic procedure less than one hour mrvuuook5877-71-45 05:20:00* Test Item Value Reference Range Interpretation Comments Aspartate Amino Transf (AST/SGOT) (test code = Aspartate Amino Transf (AST/SGOT)) 32 5-34 [facility] or plasma alanine aminotransferase measurement (enzymatic activity/volume)2020-05-16 05:20:00* Test Item Value Reference Range Interpretation Comments Alanine Aminotransferase (ALT/SGPT) (test code = 1742-6) 38 0-55 [facility] plasma protein measurement (mass/volume)2020-05-16 05:20:00* Test Item Value Reference Range Interpretation Comments Total Protein (test code = 2885-2) 11.4 6.5-8.1 [facility] plasma albumin measurement (mass/volume)2020-05-16 05:20:00* Test Item Value Reference Range Interpretation Comments Albumin (test code = 1751-7) 3.5 3.5-5.0 [facility] ClinicsPlasma globulin measurement (mass/volume) 2020-05-16 05:20:00* Test Item Value Reference Range Interpretation Comments Globulin (test code = 72748-7) 7.9 2.3-3.5 [facility] plasma albumin/globulin mass oywtm4852-20-03 05:20:00* Test Item Value Reference Range Interpretation Comments Albumin/Globulin Ratio (test code = 1759-0) 0.4 0.8-2.0 [facility] plasma alkaline phosphatase measurement (enzymatic activity/volume)2020-05-16 05:20:00* Test Item Value Reference Range Interpretation Comments Alkaline Phosphatase (test code = 6768-6) 24 40-150 [facility] plasma lactate dehydrogenase measurement (enzymatic activity/volume)2020-05-14 05:07:00* Test Item Value Reference Range Interpretation Comments Lactate Dehydrogenase (test code = 273162258) 362 125-220 [facility] ClinicsFluoroscopic procedure less than one hour adjkbqgl4252-05-15 03:10:00* Test Item Value Reference Range Interpretation Comments Differential Total Cells Counted (test code = South tial Total Cells Counted) 100 [facility] ClinicsManual blood neutrophils/100 leukocytes 2020-05-13 03:10:00* Test Item Value Reference Range Interpretation Comments Neutrophils % (Manual) (test code = 98313-6) 66 40-74 [facility] blood lymphocytes/100 leukocytes 2020-05-13 03:10:00* Test Item Value Reference Range Interpretation Comments Lymphocytes % (Manual) (test code = 737-7) 26 19-48 [facility] blood monocytes/100 leukocytes 2020-05-13 03:10:00* Test Item Value Reference Range Interpretation Comments Monocytes % (Manual) (test code = 744-3) 8 3.4-9.0 [facility] ClinicsBlood platelets count by estimate (number/volume)2020-05-13 03:10:00* Test Item Value Reference Range Interpretation Comments Platelet Estimate (test code = 98744-0) MARKEDLY DECREASED [facility] ClinicsPlatelet xgtewlmdnz9232-06-72 03:10:00* Test Item Value Reference Range Interpretation Comments Platelet Morphology Comment (test code = 85715-6) FEW LARGE [facility] ClinicsBlood hypochromia detection by light zuiwqhodfo7050-87-48 03:10:00* Test Item Value Reference Range Interpretation Comments Hypochromasia (test code = 728-6) SLIGHT [facility] anisocytosis detection by light ycznbwpotq1837-37-85 03:10:00* Test Item Value Reference Range Interpretation Comments Anisocytosis (test code = 702-1) SLIGHT [facility] covmhdilrx7693-31-75 03:10:00* Test Item Value Reference Range Interpretation Comments Red Cell Morphology Comment (test code = 6742-1) NORMAL [facility] ClinicsCT CHEST Q8406-70-97 11:09:00 [facility] [address] [address] Patient Name: CHRISTINE OTTO MR #: [id number] : Age/Sex: 29/F Req #: [id number] Adm Physician: STEPHEN LOVE MD Ordered by: STEPHEN LOVE MD Report #: [id number] Location: MED/SURG2 Room/Bed: [facility] Procedure: [id number] CT/CT CHEST W Exam Date: 05/12/20 Exam [...] COPY TO: STEPHEN LOVE MD CT ABDOMEN/PELVIS [id number] 11:09:[address] [address] Patient Name: CHRISTINE OTTO MR #: [id number] : 1990 Age/Sex: 29/F Req #: [id number] Adm Physician: STEPHEN LOVE MD Ordered by: STEPHEN LOVE MD Report #: [id number] Location: MED/SURG2 Room/Bed: [facility] Procedure: [id number] CT/CT ABDOMEN/PELVIS W Exam Date: 05/12/20 Exam [...] Automated reticulocyte count as percentage of total bbfgwubuwrlb7612-66-11 09:08:00* Test Item Value Reference Range Interpretation Comments Percent Reticulocyte Count (test code = 14169-5) 3.1 0.8-2 .2 [facility] ClinicsProthrombin time (PT) in platelet poor plasma by coagulation zwyxi5297-43-53 09:08:00* Test Item Value Reference Range Interpretation Comments Prothrombin Time (test code = 5902-2) 14.6 11.9-14.5 [facility] ClinicsINR in Platelet poor plasma by Coagulation iwokc8730-29-42 09:08:00* Test Item Value Reference Range Interpretation Comments Prothromb Time International Ratio (test code = 6301-6) 1.08 Oral Anticoagulant Therapy INR Values:1. Low Intensity Therapy 1.5 - 2.02 . Moderate Intensity Therapy 2.0 - 3.03. High Intensity Therapy(1) 2.5 - 3. 54. High Intensity Therapy(2) 3.0 - 4.05. Panic Value INR > 5.0 [facility] ClinicsFibrin D-dimer DDU measurement in platelet poor plasma (mass/volume)2020-05-12 09:08:00* Test Item Value Reference Range Interpretation Comments D-Dimer Quantitative (PE/DVT) (test code = 27040-5) 3020 0- 400 As with all in vitro diagnostic tests, the test results should be interpreted by the physician in conjunction with clinical findings and other test results.Test results are reported in NEW D-dimer units(ug/mLFEU).[facility] ClinicsFibrinogen measurement in platelet poor plasma by coagulation assay (mass/volume)2020-05-12 09:08:00* Test Item Value Reference Range Interpretation Comments Fibrinogen (test code = 3255-7) 326 204-462 [facility] iron measurement (mass/volume)2020-05-12 09:08:00* Test Item Value Reference Range Interpretation Comments Iron Level (test code = 2498-4) 42 50-170 [facility] plasma iron binding capacity measurement (mass/volume)2020-05-12 09:08:00* Test Item Value Reference Range Interpretation Comments Total Iron Binding Capacity (test code = 2500-7) 315 261-4 78 [facility] plasma iron saturation measurement (mass fraction)2020-05-12 09:08:00* Test Item Value Reference Range Interpretation Comments Percent Iron Saturation (test code = 2502-3) 13 15-50 [facility] plasma transferrin measurement (mass/volume)2020-05-12 09:08:00* Test Item Value Reference Range Interpretation Comments Transferrin (test code = 3034-6) 225 180-382 [facility] plasma ferritin measurement (mass/volume)2020-05-12 09:08:00* Test Item Value Reference Range Interpretation Comments Ferritin (test code = 2276-4) 116.93 4.63-204.00 [facility] ClinicsBlood cobalamin (vitamin B12) measurement (mass/volume)2020-05-12 09:08:00* Test Item Value Reference Range Interpretation Comments Vitamin B12 Level (test code = 65702-6) 853 213-816 [facility] plasma hepatitis A virus IgM antibody detection by erxtdwvqjbd8006-91-12 09:08:00* Test Item Value Reference Range Interpretation Comments Hepatitis A IgM Antibody (test code = 00434-1) Negative Negativ e [facility] or plasma hepatitis B virus surface antigen detection by asxaewrstit6991-79-71 09:08:00* Test Item Value Reference Range Interpretation Comments Hepatitis B Surface Antigen (test code = 5196-1) Negative Negat shavon [facility] or plasma hepatitis B virus core IgM antibody detection by sjsluvmcccz7488-45-80 09:08:00* Test Item Value Reference Range Interpretation Comments Hepatitis B Core IgM Antibody (test code = 03774-5) Negative Ne gative [facility] hepatitis C virus antibody zslrlivsr2194-38-42 09:08:00* Test Item Value Reference Range Interpretation Comments Hepatitis C Antibody (test code = 33171-0) 0.3 0.0-0.9 Negative: < 0.8 Indeterminate: 0.8 - 0.9 Positive: > 0.9 The CDC recommends that a positive HCV antibody result be followed up with a HCV Nucleic Acid Amplification test (861636).Performed at: [facility] [id number] Director: Aba Brantley MD, Phone: [phone] Rollins Brookerum or plasma folate measurement (mass/volume)2020-05-12 09:08:00* Test Item Value Reference Range Interpretation Comments Folate (test code = 2284-8) 9.0 >3.0 A serum folate concentration of less than 3.1 ng/mL isconsidered to represent cl inical deficiency.Performed at: [facility] [address] [id number] Director: Aba Brantley MD, Phone: [phone] Rollins Brookerum or plasma triglyceride measurement (mass/volume) 2020-05-12 07:25:00* Test Item Value Reference Range Interpretation Comments Triglycerides Level (test code = 2571-8) 88 0-149 [facility] cholesterol measurement (mass/volume)2020-05-12 07:25:00* Test Item Value Reference Range Interpretation Comments Cholesterol Level (test code = 2093-3) 99 0-199 Less than 200 mg/dL Low Axpb000 - 239 mg/dL Borderline Lrol476 m g/dl and greater High Risk [facility] cholesterol in LDL measurement (mass/volume) 2020-05-12 07:25:00* Test Item Value Reference Range Interpretation Comments LDL Cholesterol (test code = 2089-1) 61 60-130 [facility] plasma cholesterol in HDL measurement (mass/volume)2020-05-12 07:25:00* Test Item Value Reference Range Interpretation Comments HDL Cholesterol (test code = 2085-9) 20 40-60 [facility] plasma total cholesterol/cholesterol in HDL mass tjnwr3309-44-31 07:25:00* Test Item Value Reference Range Interpretation Comments Cholesterol/HDL Ratio (test code = 9830-1) 5.0 3.0-3.6 [facility]icsFluoroscopic procedure less than one hour oqurzyop7932-09-33 05:05:00* Test Item Value Reference Range Interpretation Comments Hemoglobin A1c Percent (test code = Hemoglobin A1c Percent) 4.9 4.0-7.0 [facility] ClinicsUrine color mkigwurodxzvj6870-04-05 22:40:00* Test Item Value Reference Range Interpretation Comments Urine Color (test code = 5778-6) YELLOW YELLOW DARK YELLOWEast [facility] Hospital and ClinicsUrine fhsmadk0649-26-68 22:40:00* Test Item Value Reference Range Interpretation Comments Urine Clarity (test code = 59488-5) SL CLOUDY CLEAR [facility] Urine by Test strip 2020-05-11 22:40:00* Test Item Value Reference Range Interpretation Comments Urine Specific [place] (test code = 5811-5) 1.030 1.010-1.02 5 [facility]icsUrine pH measurement by automated test vgqbi6139-04-57 22:40:00* Test Item Value Reference Range Interpretation Comments Urine pH (test code = 34699-3) 5.5 5-7 [facility] ClinicsUrine leukocyte esterase detection by tqhiceyg9050-83-60 22:40:00* Test Item Value Reference Range Interpretation Comments Urine Leukocyte Esterase (test code = 5799-2) NEGATIVE NEGATIVE [facility]icsUrine nitrite xuhcczorj6561-80-16 22:40:00* Test Item Value Reference Range Interpretation Comments Urine Nitrite (test code = 01745-7) NEGATIVE NEGATIVE [facility]icsUrine protein measurement by test strip (mass/volume)2020-05-11 22:40:00* Test Item Value Reference Range Interpretation Comments Urine Protein (test code = 5804-0) 2+ NEGATIVE [facility]icsUrine glucose exjvzqhgi7298-44-07 22:40:00* Test Item Value Reference Range Interpretation Comments Urine Glucose (UA) (test code = 2349-9) NEGATIVE NEGATIVE [facility]icsUrine ketones detection by automated test pisdn8751-84-24 22:40:00* Test Item Value Reference Range Interpretation Comments Urine Ketones (test code = 64693-6) 2+ NEGATIVE [facility] ClinicsUrine urobilinogen measurement by test strip (mass/volume)2020-05-11 22:40:00* Test Item Value Reference Range Interpretation Comments Urine Urobilinogen (test code = 00707-5) 1 0.2-1 [facility]icsUrine total bilirubin measurement (mass/volume)2020-05-11 22:40:00* Test Item Value Reference Range Interpretation Comments Urine Bilirubin (test code = 1978-6) SMALL NEGATIVE [facility] ClinicsUrine erythrocytes zabvlvktr7687-19-14 22:40:00* Test Item Value Reference Range Interpretation Comments Urine Blood (test code = 53936-0) LARGE NEGATIVE [facility] ClinicsAutomated urine sediment leukocyte count by microscopy (number/high power field)2020-05-11 22:40:00* Test Item Value Reference Range Interpretation Comments Urine WBC (test code = 5821-4) 0-5 0-5 [facility] ClinicsErythrocytes detection in urine sediment by light jsufkwiarp9571-05-70 22:40:00* Test Item Value Reference Range Interpretation Comments Urine RBC (test code = 62098-9) 11-20 0-5 [facility] ClinicsBacteria detection in urine sediment by light evrqjxmtvi5006-74-56 22:40:00* Test Item Value Reference Range Interpretation Comments Urine Bacteria (test code = 97401-8) FEW NONE [facility] ClinicsEpithelial cells detection in urine sediment by light rcolfxvzov0684-28-95 22:40:00* Test Item Value Reference Range Interpretation Comments Urine Epithelial Cells (test code = 22550-6) MANY NONE [facility] ClinicsFluoroscopic procedure less than one hour xcoedurm1102-92-37 16:33:00* Test Item Value Reference Range Interpretation Comments Coronavirus (PCR) (test code = Coronavirus (PCR)) NOT DETECTED NOTD ETECTED [employer] Aptima SARS-CoV-2 assay is a nucleic amplification test intended for the qualitative detection of RNA from SARS-CoV-2 from nasopharyngeal (EDUCATION REP) specimens . It is used under Emergency [...] for reprat testing oc clinically indicated.Tesing performed by:[facility] [address] [place] [address] [id number], Jono Blanco MD, PhD [facility] ClinicsBlood polychromasia detection by light izhnlnfvaa8548-17-45 15:15:00* Test Item Value Reference Range Interpretation Comments Polychromasia (test code = 88680-6) FEW [facility] ClinicsActivated partial thromboplastin time (aPTT) in platelet poor plasma by coagulation ypkcm3050-66-56 15:15:00* Test Item Value Reference Range Interpretation Comments Activated Partial Thromboplast Time (test code = 36259-0) 25.4 23.8-35.5 [facility] Brook[facility]um or plasma choriogonadotropin ( test) ixvrotgam4753-30-40 15:15:00* Test Item Value Reference Range Interpretation Comments Human Chorionic Gonadotropin, Qual (test code = 2118-8) NEGATIVE NEGATIVE [facility] ClinicsBlood leukocytes automated count (number/volume)2020-02-25 09:20:00* Test Item Value Reference Range Interpretation Comments White Blood Count (test code = 6690-2) 7.68 4.8-10.8 [facility] ClinicsBlood erythrocytes automated count (number/volume)2020-02-25 09:20:00* Test Item Value Reference Range Interpretation Comments Red Blood Count (test code = 789-8) 3.96 3.6-5.1 [facility] ClinicsBlood hemoglobin measurement (moles/volume)2020-02-25 09:20:00* Test Item Value Reference Range Interpretation Comments Hemoglobin (test code = 95713-8) 10.8 12.0-16.0 [facility] ClinicsAutomated blood hematocrit (volume fraction)2020-02-25 09:20:00* Test Item Value Reference Range Interpretation Comments Hematocrit (test code = 4544-3) 34.4 34.2-44.1 [facility] ClinicsAutomated erythrocyte mean corpuscular pcyohf4595-83-11 09:20:00* Test Item Value Reference Range Interpretation Comments Mean Corpuscular Volume (test code = 787-2) 86.9 81-99 [facility] ClinicsAutomated erythrocyte mean corpuscular hemoglobin (mass per erythrocyte)2020-02-25 09:20:00* Test Item Value Reference Range Interpretation Comments Mean Corpuscular Hemoglobin (test code = 785-6) 27.3 28-32 [facility] ClinicsAutomated erythrocyte mean corpuscular hemoglobin concentration measurement (mass/volume)2020-02-25 09:20:00* Test Item Value Reference Range Interpretation Comments Mean Corpuscular Hemoglobin Concent (test code = 786-4) 31.4 31-35 [facility] ClinicsRDW YswTm-Srs4189-23-18 09:20:00* Test Item Value Reference Range Interpretation Comments Red Cell Distribution Width (test code = 10297-1) 14.6 11.7 -14.4 [facility] ClinicsAutomated blood platelet count (count/volume)2020-02-25 09:20:00* Test Item Value Reference Range Interpretation Comments Platelet Count (test code = 777-3) 213 140-360 [facility] ClinicsAutbetsy johnson regional hospitaled blood segmented neutrophil count as percentage of total aebnrmjlvd0327-56-95 09:20:00* Test Item Value Reference Range Interpretation Comments Neutrophils (%) (Auto) (test code = 12732-8) 68.4 38.7-80.0 [facility] ClinicsAutomated blood lymphocyte count as percentage ot total fbxljfctfz1738-94-14 09:20:00* Test Item Value Reference Range Interpretation Comments Lymphocytes (%) (Auto) (test code = 736-9) 25.4 18.0-39.1 [facility] ClinicsAutomated blood monocyte count as percentage of total twgpznjnkv4246-32-69 09:20:00* Test Item Value Reference Range Interpretation Comments Monocytes (%) (Auto) (test code = 5905-5) 5.6 4.4-11.3 [facility] ClinicsAutomated blood eosinophil count as percentage of total lyfektbphc1712-36-47 09:20:00* Test Item Value Reference Range Interpretation Comments Eosinophils (%) (Auto) (test code = 713-8) 0.0 0.0-6.0 [facility] ClinicsAutomated blood basophil count as percentage of total hanxglfess3937-41-14 09:20:00* Test Item Value Reference Range Interpretation Comments Basophils (%) (Auto) (test code = 706-2) 0.3 0.0-1.0 [facility] ClinicsFluoroscopic procedure less than one hour dvomwkvd5307-15-06 09:20:00* Test Item Value Reference Range Interpretation Comments IM GRANULOCYTES % (test code = IM GRANULOCYTES %) 0.3 0.0- 1.0 [facility] ClinicsAutomated blood neutrophil count 2020-02-25 09:20:00* Test Item Value Reference Range Interpretation Comments Neutrophils # (Auto) (test code = 751-8) 5.3 2.1-6.9 [facility] ClinicsBlood lymphocytes count (number/volume) 2020-02-25 09:20:00* Test Item Value Reference Range Interpretation Comments Lymphocytes # (Auto) (test code = 94807-3) 2.0 1.0-3.2 [facility] ClinicsBlood monocytes automated count (number/volume)2020-02-25 09:20:00* Test Item Value Reference Range Interpretation Comments Monocytes # (Auto) (test code = 742-7) 0.4 0.2-0.8 [facility] ClinicsAutomated blood eosinophil count 2020-02-25 09:20:00* Test Item Value Reference Range Interpretation Comments Eosinophils # (Auto) (test code = 711-2) 0.0 0.0-0.4 [facility] ClinicsAutomated blood basophil count (count/volume)2020-02-25 09:20:00* Test Item Value Reference Range Interpretation Comments Basophils # (Auto) (test code = 704-7) 0.0 0.0-0.1 [facility] ClinicsFluoroscopic procedure less than one hour deliuhpy9898-62-52 09:20:00* Test Item Value Reference Range Interpretation Comments Absolute Immature Granulocyte (auto (dana t code = Absolute Immature Granulocyte (auto) 0.02 0-0.1 [facility] Brook[facility]um or plasma sodium measurement (moles/volume)2020-02-25 09:20:00* Test Item Value Reference Range Interpretation Comments Sodium Level (test code = 2951-2) 135 136-145 [facility] Brookerum or plasma potassium measurement (moles/volume)2020-02-25 09:20:00* Test Item Value Reference Range Interpretation Comments Potassium Level (test code = 2823-3) 3.5 3.5-5.1 [facility] Brookerum or plasma chloride measurement (moles/volume)2020-02-25 09:20:00* Test Item Value Reference Range Interpretation Comments Chloride Level (test code = 2075-0) 102 98-107 [facility] Brookerum or plasma carbon dioxide, total measurement (moles/volume)2020-02-25 09:20:00* Test Item Value Reference Range Interpretation Comments Carbon Dioxide Level (test code = 2028-9) 22 22-29 [facility] Brookerum or plasma anion pio4797-43-70 09:20:00* Test Item Value Reference Range Interpretation Comments Anion Gap (test code = 30995-4) 14.5 8-16 [facility] Brookerum or plasma urea nitrogen measurement (mass/volume)2020-02-25 09:20:00* Test Item Value Reference Range Interpretation Comments Blood Urea Nitrogen (test code = 3094-0) 12 7- [facility] Brookerum or plasma creatinine measurement (mass/volume)2020-02-25 09:20:00* Test Item Value Reference Range Interpretation Comments Creatinine (test code = 2160-0) 1.08 0.57-1.11 [facility] Brookerum or plasma urea nitrogen/creatinine mass tjtun0915-35-98 09:20:00* Test Item Value Reference Range Interpretation Comments BUN/Creatinine Ratio (test code = 3097-3) 11 6- [facility] ClinicsEstimated glomerular filtration rate (GFR) azsubtijztxep7679-85-20 09:20:00* Test Item Value Reference Range Interpretation Comments Estimat Glomerular Filtration Rate (test code = 869691806) > 60 >60 Ranges were taken from the National Kidney Disease Education Program and the [facility] literature.Reference ranges:60 or greater: Cuyksr43-60 ( for 3 consecutive months): Chronic kidney disease 15 or less: Kidney failureEast [facility] Hospital and ClinicsGlucose wpefrwmngfh1454-03-41 09:20:00* Test Item Value Reference Range Interpretation Comments Glucose Level (test code = XTO2645) 133 74-118 [facility] Brookerum or plasma calcium measurement (mass/volume)2020-02-25 09:20:00* Test Item Value Reference Range Interpretation Comments Calcium Level (test code = 55037-6) 9.2 8.4-10.2 [facility] Brookerum or plasma total bilirubin measurement (mass/volume)2020-02-25 09:20:00* Test Item Value Reference Range Interpretation Comments Total Bilirubin (test code = 1975-2) 0.3 0.2-1.2 [facility] ClinicsFluoroscopic procedure less than one hour fttuiodw3888-63-47 09:20:00* Test Item Value Reference Range Interpretation Comments Aspartate Amino Transf (AST/SGOT) (test code = Aspartate Amino Transf (AST/SGOT)) 26 5-34 [facility] Brookerum or plasma alanine aminotransferase measurement (enzymatic activity/volume)2020-02-25 09:20:00* Test Item Value Reference Range Interpretation Comments Alanine Aminotransferase (ALT/SGPT) (test code = 1742-6) 17 0-55 [facility] Brookerum or plasma protein measurement (mass/volume)2020-02-25 09:20:00* Test Item Value Reference Range Interpretation Comments Total Protein (test code = 2885-2) 9.5 6.5-8.1 [facility] Brookerum or plasma albumin measurement (mass/volume)2020-02-25 09:20:00* Test Item Value Reference Range Interpretation Comments Albumin (test code = 1751-7) 3.7 3.5-5.0 [facility] ClinicsPlasma globulin measurement (mass/volume) 2020-02-25 09:20:00* Test Item Value Reference Range Interpretation Comments Globulin (test code = 75609-6) 5.8 2.3-3.5 [facility] Brookerum or plasma albumin/globulin mass vwnot6846-14-64 09:20:00* Test Item Value Reference Range Interpretation Comments Albumin/Globulin Ratio (test code = 1759-0) 0.6 0.8-2.0 [facility] Brookerum or plasma alkaline phosphatase measurement (enzymatic activity/volume)2020-02-25 09:20:00* Test Item Value Reference Range Interpretation Comments Alkaline Phosphatase (test code = 6768-6) 26 40-150 [facility] Brookerum or plasma chorionic gonadotropin measurement (mass/volume)2020-02-25 09:20:00* Test Item Value Reference Range Interpretation Comments Human Chorionic Gonadotropin, Quant (test code = 99940-5) 24.53 0-10 [facility] Brookerum or plasma chorionic gonadotropin measurement (mass/volume)2020-02-25 09:20:00* Test Item Value Reference Range Interpretation Comments Human Chorionic Gonadotropin, Quant (test code = 76508-9) 24.53 0-10 [facility] ClinicsBASIC METABOLIC UHDOS8281-42-74 13:52:00 * Test Item Value Reference Range [...] CA) 8.8 mg/dL 8.5-10.1 N HCG SERUM OEAH4575-60-85 13:52:00* Test Item Value Reference Range Interpretation [...] CONCEPTION 10,000-100,000 MIU/ML - US PREG 1ST [id number] 13:48:00 Name: CHRISTINE OTTO [facility] : 1990 Age/S: 29 / F Lashawn Avendano Unit #: [id number] Loc: [place] [address] Phys: Qi Pratt EDUCATION REP Acct: [id number] Dis Date: Status: REG ER PHONE #: [phone] Exam Date: 02/20/2020 1245 FAX #: [phone] Reason: VAGINAL BLEEDING/PELVIC PAIN EXAMS: CPT CODE: [id number] US PREG 1ST TRIMTR 52901 EXAM: First trimester ultrasound, transvaginal ultrasound and [...] Probable uterine fibroids as described. Location code: [facility] at 1348 Reported and signed by: Tristen Isabel M.D. CC: Ashu Love MD; Qi Pratt NP Technologist: JONE RODRIGUEZ Trnscb Date/Time: 02/20/2020 (3547) DariaGR W Orig Print D/T: S: 02/20/2020 (1957) Probe: PAGE 1 Signed Report - DUP AB/PEL/SC [id number] 13:48:00 Name: CHRISTINE OTTO [facility] : 1990 Age/S: 29 / F [address] [facility] Unit #: [id number] Loc: [place] [address] Phys: Qi Pratt EDUCATION REP Acct: [id number] Dis Date: Status: REG ER PHONE #: [phone] Exam Date: 02/20/2020 1245 FAX #: [phone] Reason: PELVIC PAIN EXAMS: CPT CODE: [id number] DUP AB/PEL/SC COMP 85758 EXAM: First trimester ultrasound, transvaginal ultrasound and [...] Probable uterine fibroids as described. Location code: [facility] at 1348 Reported and signed by: Tristen Isabel M.D. CC: Ashu Love MD; Qi Pratt NP Technologist: JONE RODRIGUEZ Trnscb Date/Time: 02/20/2020 (5432) DariaGR W Orig Print D/T: S: 02/20/2020 (3269) Probe: PAGE 1 Signed Report - US PREG UT [id number] 13:48:00 Name: CHRISTINE OTTO [facility] : 1990 Age/S: 29 / F [address] [facility] Unit #: [id number] Loc: [place] [address] Phys: Qi Pratt NP Acct: [id number] Dis Date: Status: REG ER PHONE #: [phone] Exam Date: 02/20/2020 1245 FAX #: [phone] Reason: PELVIC PAIN EXAMS: CPT CODE: [id number] US PREG UT TRANSVAGINAL 11829 EXAM: First trimester ultrasound, transvaginal ultrasound and [...] Probable uterine fibroids as described. Location code: [facility] at 1348 Reported and signed by: Tristen Isabel M.D. CC: Ashu Love MD; Qi Pratt NP Technologist: JONE RODRIGUEZ Trnscb Date/Time: 02/20/2020 (1348) t.DEANAR.GR W Orig Print D/T: S: 02/20/2020 (0576) Probe: [id number] X9 PAGE 1 Signed Report BASIC METABOLIC [id number] 13:39:00* Test Item Value Reference Range Interpretation [...] code = CA) mg/dL 8.5-10.1 HCG SERUM [id number] 13:39:00* Test Item Value Reference Range Interpretation Comments HCG SERUM BETA (test code = HCG) mIU/mL 0-3 CBC W/O [id number] 13:30:00* Test Item Value Reference Range Interpretation [...] = MPV) 12.0 fL 6.7-11.0 H URINALYSIS FJOFEUQM6495-17-10 13:29:00* Test Item Value Reference Range Interpretation [...] FEW #/LPF FEW Urine Source? Clean CatchURINALYSIS IPJZGBPX7210-76-70 13:03:00* Test Item Value Reference Range Interpretation [...] HPF NONE Urine Source? Clean CatchBASIC METABOLIC [id number] 14:30:00* Test Item Value Reference Range Interpretation [...] CA) 8.2 mg/dL 8.5-10.1 L HCG SERUM [id number] 14:30:00* Test Item Value Reference Range Interpretation Comments HCG SERUM QUAL (test code = HCGQL) NEGATIVE NEGATIVE This HCGQL test is NOT applicable for MALE patients.Check with nurse about probable order error.If Tumor Marker Test needed, nurse should order test "HCGTU"(Test #550.31078) BASIC METABOLIC [id number] 14:25:00* Test Item Value Reference Range Interpretation [...] code = CA) mg/dL 8.5-10.1 HCG SERUM [id number] 14:25:00* Test Item Value Reference Range Interpretation Comments HCG SERUM QUAL (test code = HCGQL) NEGATIVE NEGATIVE This HCGQL test is NOT applicable for MALE patients.Check with nurse about probable order error.If Tumor Marker Test needed, nurse should order test "HCGTU"(Test #550.23471) CBC W/AUTO [id number] 14:12:00* Test Item Value Reference Range Interpretation [...] = NRBC#) 0.00 K/mm3 0.0-0.1 N LYMPH NODE,[id number] 16:06:00 RUN DATE: 12/17/19 [place] - Lab PAGE 1 RUN TIME: 1606 Specimen Inqui ry RUN USER: INTERFACE PATIENT: CHRISTINE OTTO ACCT #: [id number] LOC: G U #: [id number] AGE/SX: 29/ ROOM: RE12/14/19REG DR: Tio Melton MD : [birth year] BED: DIS: STATUS: GONSALO LEBLANCC TLOC: SPEC #: [id number] RECD: 12/14/19 STATUS: REGULO RETing #: [phone] TED: 12/14/[address] [facility] [address]: Tio Melton MD ENTERED: 12/14/19 SP TYPE: BX LYMPH OTHR DR: Stephen Love MD ORDERED: GROSS COPIES TO: Tio Melton MD [address] [place], [place] [address] Stephen Love MD [address] [facility] [address] [place], [place] [address] [email or web address] PROCEDURES: GROSS (12/17/19-1453) TISSUES: LYMPH NODE, NOS [...] dence of autoimmune disorders. Evaluation by a plastic top assembler may be appropriat e. It may also [...] ecimen Inquiry RUN USER: INTERFACE SPEC #: [id number] PATIENT: CHRISTINE LOPEZ #[id number] (Continued) FI NAL DIAGNOSIS LEFT AXILLARY LYMPH NODE, RESECTION: Increased IgG4 positive plasma cells with reactive lymphoid hyperplasia, see comment Dermatopathic pigment and tattoo pigment identified Electronic S ignature Binh [place].D. D [address] FLOW CYTOMETRY Flow Cytometry Analysis Accession/Jaziel e No:[id number] Diagnosis:No flow immunophenotypic evidence of a lym [...] ON NEXT PAGE -- RUN DATE: 12/17/19 [facility] PAGE 3 RUN TIME: 1606 Specimen Inquiry RUN USER: INTERFACE SPEC #: [id number] PATIENT: CHRISTINE OTTO #[id number] (Continued) FLOW CYTOMETRY (Continued) CD45 Ne.1% Plasma Cells: 1.2% Markers Performed:CD2, CD 3, CD4, CD5, CD7, CD8, CD10, CD11c, CD13, CD14, CD16, CD19, CD20, CD23, CD33, CD 34,CD38, CD45, CD56, CD64, CD117, HLA-DR, [place], Lambda (24 Markers) CPT Codes:8 8184x1, 99926f15, 20126n1 Microscopic DescriptionA digital image of a cytospin s lide was reviewed for QA purposes. Electronic Bonnie Carrillo M.D. The Technical Component Processing, Analysis and Professional Component of this test wascompleted at [facility] [place], [address] [place] [address], [address], [place], [place] / [address] /[phone] / CLIA# [id number] / Solid Waste Technician(s): Tio Gomez MD.This test was developed and [...] may be included within this report are dental detail representative of the patient but notall testing in its entiret y and should not be used to render a result.The CPT codes provided with our test descriptions are based on AMA guidelines and are forinformational purposes only . Correct CPT coding is the sole responsibility of the billingparty. Please dire ct any questions regarding coding to the payer being billed. 2019 [employer]. All rights reserved. [employer] and theassociated logo are trademarks of [employer] MACROSCOPIC T he specimen is received fresh [...] for flow cytometry studies. Section Code: 1A-1D- dental detail representative tissue. GROSS PERFORMED AT [facility] CONTINUED ON NEXT PAGE RUN DATE: 12/17/19 [facility] PAGE 4 RUN TIME: 1606 Specimen Inquiry RUN USER: INTERFACE SPEC #: [id number] PATIENT: CHRISTINE OTTO #[id number] (Continue d) MACROSCOPIC (Continued) [facility] [address] [facility] [address] (P)[phone] MICROSCOPIC All of the stains, including any controls performed, stain appropriately. MICROSCOPIC PERFORMED AT [facility] [address] [place] [address] (P) PERFORMING SITE Diagnosis performed at: [facility] are [facility], [place] [address] [place] [address] Signed Vidal Casas MD 12/17/19 1606 END OF REPORT HCG SERUM [id number] 15:02:00* Test Item Value Reference Range Interpretation Comments HCG SERUM QUAL (test code = HCGQL) NEGATIVE NEGATIVE This HCGQL test is NOT applicable for MALE patients.Check with nurse about probable order error.If Tumor Marker Test needed, nurse should order test "HCGTU"(Test #550.58669) BASIC METABOLIC [id number] 15:01:00* Test Item Value Reference Range Interpretation [...] CA) 8.4 mg/dL 8.5-10.1 L BASIC METABOLIC [id number] 14:56:00* Test Item Value Reference Range Interpretation [...] code = CA) mg/dL 8.5-10.1 CBC W/AUTO [id number] 14:25:00* Test Item Value Reference Range Interpretation [...] Coronavirus (PCR)) NOT DETECTED NOTD ETECTED CORONAVIRUS ABMN-SOF-2-RT-PCR (RESPIRATORY)This test has been validated but FDA' s independent review of the validation is pending. This test is performed as a l aboratory developed test; independent review of the validation under FDA's Emerg ency Use Authorization (EUA) authority will be performed according to current [facility] requirements.We will continue to follow federal and state requirements fo r both notification of results and confirmatory testing that is required by [facility] her agency.This test was developed and its performance characteristics determine d by [employer]. It has not been cleared or approved by the U.S. Food and Drug Administration. Results should be used in conjunction with clinical finding s, and should not form the sole basis for a diagnosis or treatment decision.Spec imen sent to [facility] and performed at [facility], [address] [place] [address]. [address]JQG [facility] [id number] 18:46:00* Test Item Value Reference Range Interpretation Comments Blood Culture (test code = 81900720) NO GROWTH AFTER 5 DAYS, FINAL REPORT [facility] ClinicsAlbumin (PEP)2019-12-02 13:53:00* Test Item Value Reference Range Interpretation Comments Albumin (PEP) (test code = Albumin (PEP)) 3.0 2.9-4.4 [facility] ClinicsAlpha-1-Fwvcmxhvb8286-20-02 13:53:00* Test Item Value Reference Range Interpretation Comments Ffrpz-3-Lxwlrzosr (test code = 2865-4) 0.3 0.0-0.4 [facility] ClinicsAlpha-2-Nwuvgloxu9643-17-51 13:53:00* Test Item Value Reference Range Interpretation Comments Nudov-9-Ovasrnhoj (test code = 2868-8) 0.7 0.4-1.0 [facility] ClinicsBeta Gamma Gdguqwuv9291-22-38 13:53:00* Test Item Value Reference Range Interpretation Comments Beta Gamma Globulin (test code = 2871-2) 1.1 0.7-1.3 [facility] ClinicsGamma Eqlefihdp3580-51-89 13:53:00* Test Item Value Reference Range Interpretation Comments Gamma Globulins (test code = 2874-6) 3.9 0.4-1.8 H [facility] ClinicsTotal Protein (PEP)2019-12-02 13:53:00* Test Item Value Reference Range Interpretation Comments Total Protein (PEP) (test code = 2885-2) 9.0 6.0-8.5 H [facility] ClinicsGlobulin2020-03-25 13:53:00* Test Item Value Reference Range Interpretation Comments Globulin (test code = 00287-5) 6.0 2.2-3.9 H [facility] ClinicsKappa Light Chain Gvuxoexw4139-83-60 13:53:00* Test Item Value Reference Range Interpretation Comments [place] Light Chain Analysis (test code = 37615-0) 236.5 3.3-1 9.4 H [facility] ClinicsLambda Light Chain Qhvtzaxv2717-80-70 13:53:00* Test Item Value Reference Range Interpretation Comments Lambda Light Chain Analysis (test code = 81308-9) 201.9 5.7- 26.3 H [facility] ClinicsTotl [place]/Lambda Light Chain Ratio 2019-12-02 13:53:00* Test Item Value Reference Range Interpretation Comments Totl [place]/Lambda Light Chain Ratio (test code = 18051-4) 1.17 0.26-1.65 Performed at: [facility] Lab[address] [id number] Director: Aba Brantley MD, Phone: [phone] at: [address] [place] [id number] Director: DEBRA Daniel MD, Phone: [phone] [facility] Hospital and ClinicsProtein Electrophoresis Q-Nkrhl0923-19Yxokv5258-53-81 13:53:00* Test Item Value Reference Range Interpretation Comments Protein Electrophoresis M-Clay (test code = 69953-0) Not Observ ed Not Observed [facility] ClinicsAlbumin/Globulin Oyrjn9003-00-82 13:53:00 * Test Item Value Reference Range Interpretation Comments Albumin/Globulin Ratio (test code = 1759-0) 0.5 0.7-1.7 L [facility] ClinicsProtein Electrophoresis Kibw5952-61-87 13:53:00* Test Item Value Reference Range Interpretation Comments Protein Electrophoresis Note (test code = Protein Electropho resis Note) Comment . Protein electrophoresis scan will follow via computer,mail, or media sales representative delivery. [facility] ClinicsAnti-Double Strand DNA Pdgujbgl8643-97-78 22:14:00* Test Item Value Reference Range Interpretation Comments Anti-Double Strand DNA Antibody (test code = 5130-0) 3 0 -9 Negative <5 Equivocal 5 - 9 Positive > 9Performed at: [facility] Lab[address] [id number] b Director: Aba Brantley MD, Phone: [phone] [facility] Hospital and ClinicsRheumatoid Bzptse8177-40-09 22:14:00* Test Item Value Reference Range Interpretation Comments Rheumatoid Factor (test code = 80819-5) <10.0 0.0-13.9 Performed at: [facility] [id number] Director: Aba Brantley MD, Phone: [phone] [facility] Hospital and ClinicsUrine Omjorlw3073-04-94 22:14:00* Test Item Value Reference Range Interpretation Comments Urine Protein (test code = 2888-6) 6.0 Not Estab. [facility] ClinicsUrine Kyonefw3315-73-77 22:14:00* Test Item Value Reference Range Interpretation Comments Urine Albumin (test code = 63869-6) 41.0 . [facility] ClinicsUrine Cctvz-6-Zdsvkpnx7949-03-24 22:14:00 * Test Item Value Reference Range Interpretation Comments Urine Jxnyn-7-Rtlmgiqc (test code = 78194-8) 4.6 . [facility] ClinicsUrine Zdune-7-Kesvnlvop8655-03-24 22:14:00* Test Item Value Reference Range Interpretation Comments Urine Tugwf-2-Lkbpambxq (test code = 75486-5) 8.5 . [facility] ClinicsUrine Beta Odwpktzt3337-35-51 22:14:00* Test Item Value Reference Range Interpretation Comments Urine Beta Globulin (test code = 64010-8) 19.9 . [facility] ClinicsUrine Gamma Azzbwdvk6199-03-84 22:14:00* Test Item Value Reference Range Interpretation Comments Urine Gamma Globulin (test code = 39069-4) 26.0 . [facility] ClinicsUrine Random PEP M-Clay %2019-12-01 22:14:00* Test Item Value Reference Range Interpretation Comments Urine Random PEP M-Clay % (test code = 57113-1) Not Observed Not O bserved [facility] ClinicsProtein Electrophoresis Xftt1398-29-99 22:14:00* Test Item Value Reference Range Interpretation Comments Protein Electrophoresis Note (test code = Protein Electropho resis Note) Comment . Protein electrophoresis scan will follow via computer,mail, or media sales representative delivery. Performed at: [employer] [id number] Director: Aba Brantley MD, Phone: [phone] at: - [facility] [address] [facility] [address], [place], [place] [id number] Director: DEBRA Daniel MD, Phone: [phone] [facility] Hospital and ClinicsUrine Immunofixation 2019-12-01 22:13:00* Test Item Value Reference Range Interpretation Comments Urine Immunofixation (test code = 189763641) Note: . Immunofixation shows IgG monoclonal protein with no confirmedlight chain associa tion, which is suggestive of Heavy ChainDisease. Recommend retesting in 6-10 we ks.Performed at: [facility] [place] [id number] [facility] [address], [place] [address]Lab Director: DEBRA Daniel MD, Phone: [phone] [facility] Hospital and ClinicsErythrocyte Sedimentation Oxgo1755-60-92 09:30:00* Test Item Value Reference Range Interpretation Comments Erythrocyte Sedimentation Rate (test code = 4537-7) 87 0- 20 H [facility] ClinicsDifferential Total Cells Counted 2019-11-30 08:02:00* Test Item Value Reference Range Interpretation Comments Differential Total Cells Counted (test code = Differen tial Total Cells Counted) 100 [facility] ClinicsNeutrophils % (Manual)2019-11-30 08:02:00 * Test Item Value Reference Range Interpretation Comments Neutrophils % (Manual) (test code = 94934-1) 59 40-74 [facility] ClinicsLymphocytes % (Manual)2019-11-30 08:02:00 * Test Item Value Reference Range Interpretation Comments Lymphocytes % (Manual) (test code = 737-7) 35 19-48 [facility] ClinicsMonocytes % (Manual)2019-11-30 08:02:00* Test Item Value Reference Range Interpretation Comments Monocytes % (Manual) (test code = 744-3) 5 3.4-9.0 [facility] ClinicsEosinophils % (Manual)2019-11-30 08:02:00 * Test Item Value Reference Range Interpretation Comments Eosinophils % (Manual) (test code = 714-6) 1 0-7 [facility] ClinicsWhite Blood Qoggz7671-51-43 06:23:00* Test Item Value Reference Range Interpretation Comments White Blood Count (test code = 6690-2) 4.85 4.8-10.8 [facility] ClinicsRed Blood Aqswk0944-67-76 06:23:00* Test Item Value Reference Range Interpretation Comments Red Blood Count (test code = 789-8) 3.71 3.6-5.1 [facility] ClinicsHemoglobin2020-03-23 06:23:00* Test Item Value Reference Range Interpretation Comments Hemoglobin (test code = 11346-0) 10.7 12.0-16.0 L [facility] ClinicsHematocrit2020-03-23 06:23:00* Test Item Value Reference Range Interpretation Comments Hematocrit (test code = 4544-3) 34.2 34.2-44.1 [facility] ClinicsMean Corpuscular Vwvhee5893-79-57 06:23:00* Test Item Value Reference Range Interpretation Comments Mean Corpuscular Volume (test code = 787-2) 92.2 81-99 [facility] ClinicsMean Corpuscular Eggzskkvyo0380-47-43 06:23:00* Test Item Value Reference Range Interpretation Comments Mean Corpuscular Hemoglobin (test code = 785-6) 28.8 28-32 [facility] ClinicsMean Corpuscular Hemoglobin Concent 2019-11-30 06:23:00* Test Item Value Reference Range Interpretation Comments Mean Corpuscular Hemoglobin Concent (test code = 786-4) 31.3 31-35 [facility] ClinicsRed Cell Distribution Lraoy5915-61-18 06:23:00* Test Item Value Reference Range Interpretation Comments Red Cell Distribution Width (test code = 41026-5) 13.8 11.7 -14.4 [facility] ClinicsPlatelet Suwri5388-20-55 06:23:00* Test Item Value Reference Range Interpretation Comments Platelet Count (test code = 777-3) 250 140-360 [facility] ClinicsFluoroscopic procedure less than one hour vhngwvaa1302-17-42 05:50:00* Test Item Value Reference Range Interpretation Comments Differential Total Cells Counted (test code = South tial Total Cells Counted) 100 [facility] ClinicsManual blood neutrophils/100 leukocytes 2019-11-30 05:50:00* Test Item Value Reference Range Interpretation Comments Neutrophils % (Manual) (test code = 79854-5) 59 40-74 [facility] leukocytes 2019-11-30 05:50:00* Test Item Value Reference Range Interpretation Comments Lymphocytes % (Manual) (test code = 737-7) 35 19-48 [facility] Centerual blood monocytes/100 leukocytes 2019-11-30 05:50:00* Test Item Value Reference Range Interpretation Comments Monocytes % (Manual) (test code = 744-3) 5 3.4-9.0 [facility] blood eosinophil count as percentage of total xcpqiybhcm8958-94-67 05:50:00* Test Item Value Reference Range Interpretation Comments Eosinophils % (Manual) (test code = 714-6) 1 0-7 [facility] ClinicsErythrocyte sedimentation rate by Westergren kmfwxz8499-53-46 05:50:00* Test Item Value Reference Range Interpretation Comments Erythrocyte Sedimentation Rate (test code = 4537-7) 87 0- 20 [facility] ClinicsFluoroscopic procedure less than one hour budykihm7319-01-19 05:50:00* Test Item Value Reference Range Interpretation Comments Albumin (PEP) (test code = Albumin (PEP)) 3.0 2.9-4.4 [facility] Brookerum or plasma alpha 1 globulin measurement by electrophoresis (mass/volume)2019-11-30 05:50:00* Test Item Value Reference Range Interpretation Comments Jebfj-1-Swuarqpyn (test code = 2865-4) 0.3 0.0-0.4 [facility] Brookerum or plasma alpha 2 globulin measurement by electrophoresis (mass/volume)2019-11-30 05:50:00* Test Item Value Reference Range Interpretation Comments Bhfym-5-Xsooprdgl (test code = 2868-8) 0.7 0.4-1.0 [facility] Brookerum or plasma beta globulin measurement by electrophoresis (mass/volume)2019-11-30 05:50:00* Test Item Value Reference Range Interpretation Comments Beta Gamma Globulin (test code = 2871-2) 1.1 0.7-1.3 [facility] Brookerum or plasma gamma globulin measurement by electrophoresis (mass/volume)2019-11-30 05:50:00* Test Item Value Reference Range Interpretation Comments Gamma Globulins (test code = 2874-6) 3.9 0.4-1.8 [facility] Brookerum or plasma protein measurement (mass/volume)2019-11-30 05:50:00* Test Item Value Reference Range Interpretation Comments Total Protein (PEP) (test code = 2885-2) 9.0 6.0-8.5 [facility] Brookerum globulin measurement by calculation (mass/volume)2019-11-30 05:50:00* Test Item Value Reference Range Interpretation Comments Globulin (test code = 63747-7) 6.0 2.2-3.9 [facility] Brookerum immunoglobulin kappa light chains measurement (mass/volume)2019-11-30 05:50:00* Test Item Value Reference Range Interpretation Comments [place] Light Chain Analysis (test code = 37090-9) 236.5 3.3-1 9.4 [facility] Brookerum or plasma immunoglobulin free lambda light chains measurement (mass/volume)2019-11-30 05:50:00* Test Item Value Reference Range Interpretation Comments Lambda Light Chain Analysis (test code = 78344-0) 201.9 5.7- 26.3 [facility] Brookerum immunoglobulin kappa light chains/immunoglobulin lambda light chains mass boshw8023-04-88 05:50:00* Test Item Value Reference Range Interpretation Comments Totl [place]/Lambda Light Chain Ratio (test code = 52932-6) 1.17 0.26-1.65 Performed at: - [facility] [id number] Director: Aba Brantley MD, Phone: [phone] at: - [facility], [place], [place] [id number] Director: DEBRA Daniel MD, Phone: [phone] Rollins Brookerum or plasma protein monoclonal measurement by electrophoresis (mass/volume)2019-11-30 05:50:00* Test Item Value Reference Range Interpretation Comments Protein Electrophoresis M-Clay (test code = 51188-2) Not Observ ed Not Observed [facility] Brookerum or plasma albumin/globulin mass rkfki2343-24-67 05:50:00* Test Item Value Reference Range Interpretation Comments Albumin/Globulin Ratio (test code = 1759-0) 0.5 0.7-1.7 [facility] ClinicsFluoroscopic procedure less than one hour jjyzwiqw4701-95-68 05:50:00* Test Item Value Reference Range Interpretation Comments Protein Electrophoresis Note (test code = Protein Electropho resis Note) Comment . Protein electrophoresis scan will follow via computer,mail, or media sales representative delivery. [facility] DNA double strand antibody assay (units/volume)2019-11-30 05:50:00* Test Item Value Reference Range Interpretation Comments Anti-Double Strand DNA Antibody (test code = 5130-0) 3 0 -9 Negative <5 Equivocal 5 - 9 Positive > 9Performed at: [facility] Lab[address] [id number] b Director: Aba Brantley MD, Phone: [phone] Rollins Brookerum nuclear antibody titer by bkrumyrablblkgbmem4928-75-90 05:50:00* Test Item Value Reference Range Interpretation Comments Anti-Nuclear Antibody Screen (test code = 5048-4) Positive [facility] nuclear antibody pattern homogenous rvehr4556-39-15 05:50:00* Test Item Value Reference Range Interpretation Comments Anti-Nuclear Ab Homogeneous Pattern (test code = 05383-0) 1:1280 [facility] ClinicsFluoroscopic procedure less than one hour fdrcsuos9213-85-56 05:50:00* Test Item Value Reference Range Interpretation [...] Nucleosomes, Histones Drug-induced SL E Speckled Sm, ORDER PROCESSOR , SCL-70, SLE,MCTD,PSS (diffuse form), SS-A/SS-B Sjogrens --- -------- Nucleolar SCL-70, PM-1 /SCL High titers Scleroderma, PM/DM --- Centromere Centromere PSS (li mited form) w/Crest syndrome variable - Nuclear Dot Sp100,p09-xmnurp Prima ry Biliary Cirrhosis Nuclear GP210, Primary Biliary Cirrhosis Membrane renetta A,B,C - Testing performed by:Jana Manuel [address] [place], [place] [phone]: Aba Brantley MD [facility]erum or plasma rheumatoid factor measurement (units/volume)2019-11-30 05:50:00* Test Item Value Reference Range Interpretation Comments Rheumatoid Factor (test code = 67754-3) <10.0 0.0-13.9 Performed at: [facility] [address] [id number] Director: Aba Brantley MD, Phone: [phone] [facility] Hospital and ClinicsFluoroscopic procedure less than one hour lglmlitd3344-20-77 05:50:00* Test Item Value Reference Range Interpretation [...] 4Negative Control PassedPositive Control PassedTe sting performed by:[id number] [place], [place] [address]-74 [phone]: Eric Nick [facility] BudaManual blood eosinophil count as percentage of total zcqewxeztv2765-52-17 05:50:00* Test Item Value Reference Range Interpretation Comments Eosinophils % (Manual) (test code = 714-6) 1 0-7 [facility] ClinicsErythrocyte sedimentation rate by Westergren vwoxpu6726-79-76 05:50:00* Test Item Value Reference Range Interpretation Comments Erythrocyte Sedimentation Rate (test code = 4537-7) 87 0- 20 [facility] ClinicsFluoroscopic procedure less than one hour ttxwgtfz9002-19-05 05:50:00* Test Item Value Reference Range Interpretation Comments Albumin (PEP) (test code = Albumin (PEP)) 3.0 2.9-4.4 [facility] Brookerum or plasma alpha 1 globulin measurement by electrophoresis (mass/volume)2019-11-30 05:50:00* Test Item Value Reference Range Interpretation Comments Ntkdo-1-Jsreshzus (test code = 2865-4) 0.3 0.0-0.4 [facility] Brookerum or plasma alpha 2 globulin measurement by electrophoresis (mass/volume)2019-11-30 05:50:00* Test Item Value Reference Range Interpretation Comments Npxld-4-Zrvtbgqey (test code = 2868-8) 0.7 0.4-1.0 [facility] Brookerum or plasma beta globulin measurement by electrophoresis (mass/volume)2019-11-30 05:50:00* Test Item Value Reference Range Interpretation Comments Beta Gamma Globulin (test code = 2871-2) 1.1 0.7-1.3 [facility] Brookerum or plasma gamma globulin measurement by electrophoresis (mass/volume)2019-11-30 05:50:00* Test Item Value Reference Range Interpretation Comments Gamma Globulins (test code = 2874-6) 3.9 0.4-1.8 [facility] Brookerum or plasma protein measurement (mass/volume)2019-11-30 05:50:00* Test Item Value Reference Range Interpretation Comments Total Protein (PEP) (test code = 2885-2) 9.0 6.0-8.5 [facility]erum globulin measurement by calculation (mass/volume)2019-11-30 05:50:00* Test Item Value Reference Range Interpretation Comments Globulin (test code = 98367-3) 6.0 2.2-3.9 [facility]erum immunoglobulin kappa light chains measurement (mass/volume)2019-11-30 05:50:00* Test Item Value Reference Range Interpretation Comments [place] Light Chain Analysis (test code = 09073-5) 236.5 3.3-1 9.4 [facility] Brookerum or plasma immunoglobulin free lambda light chains measurement (mass/volume)2019-11-30 05:50:00* Test Item Value Reference Range Interpretation Comments Lambda Light Chain Analysis (test code = 13888-4) 201.9 5.7- 26.3 [facility] immunoglobulin kappa light chains/immunoglobulin lambda light chains mass rzfpv2630-68-55 05:50:00* Test Item Value Reference Range Interpretation Comments Totl [place]/Lambda Light Chain Ratio (test code = 11690-1) 1.17 0.26-1.65 Performed at: [facility] [address] [id number] Director: Aba Brantley MD, Phone: [phone] at: [facility] - [facility] [address] [id number] Director: DEBRA Daniel MD, Phone: [phone] Rollins Brookerum or plasma protein monoclonal measurement by electrophoresis (mass/volume)2019-11-30 05:50:00* Test Item Value Reference Range Interpretation Comments Protein Electrophoresis M-Clay (test code = 22299-4) Not Observ ed Not Observed [facility] or plasma albumin/globulin mass ztzsn5528-48-10 05:50:00* Test Item Value Reference Range Interpretation Comments Albumin/Globulin Ratio (test code = 1759-0) 0.5 0.7-1.7 [facility] ClinicsFluoroscopic procedure less than one hour zjowmgva7506-55-29 05:50:00* Test Item Value Reference Range Interpretation Comments Protein Electrophoresis Note (test code = Protein Electropho resis Note) Comment . Protein electrophoresis scan will follow via computer,mail, or media sales representative delivery. [facility] DNA double strand antibody assay (units/volume)2019-11-30 05:50:00* Test Item Value Reference Range Interpretation Comments Anti-Double Strand DNA Antibody (test code = 5130-0) 3 0 -9 Negative <5 Equivocal 5 - 9 Positive > 9Performed at: [facility] [address] [place], [place] [id number] b Director: Aba Brantley MD, Phone: [phone] Rollins Brookerum nuclear antibody titer by zmqgevpahqvkfuebja8551-77-00 05:50:00* Test Item Value Reference Range Interpretation Comments Anti-Nuclear Antibody Screen (test code = 5048-4) Positive [facility] nuclear antibody pattern homogenous gkaah9518-42-58 05:50:00* Test Item Value Reference Range Interpretation Comments Anti-Nuclear Ab Homogeneous Pattern (test code = 97061-0) 1:1280 [facility] ClinicsFluoroscopic procedure less than one hour epwvniap3431-58-84 05:50:00* Test Item Value Reference Range Interpretation [...] Nucleosomes, Histones Drug-induced SL E Speckled Sm, ORDER PROCESSOR , SCL-70, SLE,MCTD,PSS (diffuse form), SS-A/SS-B Sjogrens --- -------- Nucleolar SCL-70, PM-1 /SCL High titers Scleroderma, PM/DM --- Centromere Centromere PSS (li mited form) w/Crest syndrome variable - Nuclear Dot Sp100,y93-vpshue Prima ry Biliary Cirrhosis Nuclear GP210, Primary Biliary Cirrhosis Membrane renetta A,B,C - Testing performed by:[employer] [address] [id number]: Aba Brantley MD [facility] or plasma rheumatoid factor measurement (units/volume)2019-11-30 05:50:00* Test Item Value Reference Range Interpretation Comments Rheumatoid Factor (test code = 06536-6) <10.0 0.0-13.9 Performed at: [facility] [address] [id number] Director: bAa Brantley MD, Phone: [phone] [facility] Hospital and ClinicsFluoroscopic procedure less than one hour mmnuohvw9906-55-01 05:50:00* Test Item Value Reference Range Interpretation [...] 4Negative Control PassedPositive Control PassedTe sting performed by:[id number] [place], [place] [address]-58 [phone]: Eric Nick [facility] BudaUrine immunofixation vkjrefgdbpnfxj7757-66-51 13:57:00* Test Item Value Reference Range Interpretation Comments Urine Immunofixation (test code = 011315418) Note: . Immunofixation shows IgG monoclonal protein with no confirmedlight chain associa tion, which is suggestive of Heavy ChainDisease. Recommend retesting in -.Performed at: [facility] [facility] [address], [place] [address]Lab Director: DEBRA Daniel MD, Phone: [phone] [facility] Hospital and ClinicsUrine protein measurement (mass/volume)2019-11-29 13:57:00* Test Item Value Reference Range Interpretation Comments Urine Protein (test code = 2888-6) 6.0 Not Estab. [facility]24 hour urine albumin/total protein ratio by nsinreepwolhtuo8057-83-57 13:57:00* Test Item Value Reference Range Interpretation Comments Urine Albumin (test code = 00190-9) 41.0 . [facility]24 hour urine alpha 1 globulin/total protein by kxhmvejridojhxt3092-48-79 13:57:00* Test Item Value Reference Range Interpretation Comments Urine Ahtwy-6-Dposhscq (test code = 24838-0) 4.6 . [facility]24 hour urine alpha 2 globulin/total protein by vgnirajeniooenz5513-97-33 13:57:00* Test Item Value Reference Range Interpretation Comments Urine Ffhsh-8-Rebfatbvi (test code = 23505-5) 8.5 . [facility]24 hour urine beta globulin/total protein ratio by qtqrzywwrxisreq6908-58-72 13:57:00* Test Item Value Reference Range Interpretation Comments Urine Beta Globulin (test code = 88950-6) 19.9 . [facility]24 hour urine gamma globulin/total protein ratio by xtmzyptcsoujkst4075-92-55 13:57:00* Test Item Value Reference Range Interpretation Comments Urine Gamma Globulin (test code = 25411-9) 26.0 . [facility] ClinicsUrine protein monoclonal/total protein by fdodtqtgurgygdv7668-40-31 13:57:00* Test Item Value Reference Range Interpretation Comments Urine Random PEP M-Clay % (test code = 20877-4) Not Observed Not O bserved [facility] ClinicsFluoroscopic procedure less than one hour bwvlvfvw2804-04-67 13:57:00* Test Item Value Reference Range Interpretation Comments Protein Electrophoresis Note (test code = Protein Electropho resis Note) Comment . Protein electrophoresis scan will follow via computer,mail, or media sales representative delivery. Performed at: [employer] [id number] Director: Aba Brantley MD, Phone: [phone] at: [employer] [id number] Director: DEBRA Daniel MD, Phone: [phone] [facility] Hospital and ClinicsUrine immunofixation xyhiwwmvurtokl6792-94-31 13:57:00* Test Item Value Reference Range Interpretation Comments Urine Immunofixation (test code = 226074690) Note: . Immunofixation shows IgG monoclonal protein with no confirmedlight chain associa tion, which is suggestive of Heavy ChainDisease. Recommend retesting in 6-10 wee ks.Performed at: [facility] [address]Lab Director: DEBRA Daniel MD, Phone: [phone] [facility] Hospital and ClinicsUrine protein measurement (mass/volume)2019-11-29 13:57:00* Test Item Value Reference Range Interpretation Comments Urine Protein (test code = 2888-6) 6.0 Not Estab. [facility]24 hour urine albumin/total protein ratio by ljudrgblslltquw6848-17-63 13:57:00* Test Item Value Reference Range Interpretation Comments Urine Albumin (test code = 63349-1) 41.0 . [facility]24 hour urine alpha 1 globulin/total protein by mlzshrrckqsblal5206-88-67 13:57:00* Test Item Value Reference Range Interpretation Comments Urine Kpfbg-5-Cbyjlfav (test code = 44001-6) 4.6 . [facility]24 hour urine alpha 2 globulin/total protein by cehtrvglioieume9723-71-72 13:57:00* Test Item Value Reference Range Interpretation Comments Urine Geagl-4-Bvsrikcpk (test code = 94783-8) 8.5 . [facility]24 hour urine beta globulin/total protein ratio by jklhyvnnmpjxkyf3739-91-85 13:57:00* Test Item Value Reference Range Interpretation Comments Urine Beta Globulin (test code = 07111-6) 19.9 . [facility]24 hour urine gamma globulin/total protein ratio by febepuaqffdidkz5564-07-59 13:57:00* Test Item Value Reference Range Interpretation Comments Urine Gamma Globulin (test code = 21869-0) 26.0 . [facility] ClinicsUrine protein monoclonal/total protein by qkfyitpbbvdyrck7946-17-92 13:57:00* Test Item Value Reference Range Interpretation Comments Urine Random PEP M-Clay % (test code = 83208-0) Not Observed Not O bserved [facility] ClinicsFluoroscopic procedure less than one hour jtsyiesc8628-80-91 13:57:00* Test Item Value Reference Range Interpretation Comments Protein Electrophoresis Note (test code = Protein Electropho resis Note) Comment . Protein electrophoresis scan will follow via computer,mail, or media sales representative delivery. Performed at: [address] [id number] Director: Aba Brantley MD, Phone: [phone] at: DA - [facility] [address] [facility] [address], [place], [place] [id number] Director: DEBRA Daniel MD, Phone: [phone] [facility] Hospital and ClinicsInfluenza Virus Types A,B Glizehb4976-25-29 06:47:00* Test Item Value Reference Range Interpretation Comments Influenza Virus Types A,B Antigen (test code = 27418-0) NEGATIVE NEGATIVE [facility] Brookerum or plasma HIV 1 RNA viral load by probe and target amplification method (number/volume)2019-11-29 06:45:00* Test Item Value Reference Range Interpretation Comments HIV-1 RNA, Quantitative copies/mL (test code = 76009-8) <20 . HIV-1 RNA not detectedThe reportable range for this assay is 20 to 10,000,000cop ies HIV-1 RNA/mL.[facility] Brookerum or plasma HIV 1 RNA viral load by probe and target amplification method (number/volume) 2019-11-29 06:45:00* Test Item Value Reference Range Interpretation Comments HIV-1 RNA, Quantitative copies/mL (test code = 34202-3) <20 . HIV-1 RNA not detectedThe reportable range for this assay is 20 to 10,000,000cop ies HIV-1 RNA/mL.[facility] ClinicsChlamydia pneumoniae DNA (PCR)2019-11-29 05:35:00* Test Item Value Reference Range Interpretation Comments Chlamydia pneumoniae DNA (PCR) (test code = Chlamydia pneumoniae DNA (PCR)) NOT DETECTED NOT DETECT Test performed at [facility] [place] [phone] HAVE BEEN CALLED TO THE PHYSICIANEast [facility] Hospital and ClinicsInfluenza Type A (RT-PCR)2019-11-29 05:35:00* Test Item Value Reference Range Interpretation Comments Influenza Type A (RT-PCR) (test code = 827986341) NOT DETECTED NOT DETECT [facility] ClinicsMycoplasma pneumoniae (PCR)2019-11-29 05:35:00* Test Item Value Reference Range Interpretation Comments Mycoplasma pneumoniae (PCR) (test code = Mycoplasma pn eumoniae (PCR)) NOT DETECTED NOT DETECT [facility] ClinicsInfluenza Type B (RT-PCR)2019-11-29 05:35:00* Test Item Value Reference Range Interpretation Comments Influenza Type B (RT-PCR) (test code = 047231992) NOT DETECTED NOT DETECT [facility] ClinicsRespiratory Syncytial Virus (PCR) 2019-11-29 05:35:00* Test Item Value Reference Range Interpretation Comments Respiratory Syncytial Virus (PCR) (test code = 867201464) NO T DETECTED NOT DETECT [facility] ClinicsBordetella pertussis DNA (PCR)2019-11-29 05:35:00* Test Item Value Reference Range Interpretation Comments Bordetella pertussis DNA (PCR) (test code = 058906574) NOT DETEC RONA NOT DETECT [facility] ClinicsParainfluenza Type 1 (PCR)2019-11-29 05:35:00* Test Item Value Reference Range Interpretation Comments Parainfluenza Type 1 (PCR) (test code = 660428046) NOT DETECTED NOT DETECT [facility] ClinicsParainfluenza Type 2 (PCR)2019-11-29 05:35:00* Test Item Value Reference Range Interpretation Comments Parainfluenza Type 2 (PCR) (test code = 868448429) NOT DETECTED NOT DETECT [facility] ClinicsParainfluenza Type 3 (PCR)2019-11-29 05:35:00* Test Item Value Reference Range Interpretation Comments Parainfluenza Type 3 (PCR) (test code = 539626876) NOT DETECTED NOT DETECT [facility] ClinicsParainfluenza Type 4 (PCR)2019-11-29 05:35:00* Test Item Value Reference Range Interpretation Comments Parainfluenza Type 4 (PCR) (test code = Parainfluenza Type 4 (PCR)) NOT DETECTED NOT DETECT [facility] ClinicsRhinovirus (PCR)2019-11-29 05:35:00* Test Item Value Reference Range Interpretation Comments Rhinovirus (PCR) (test code = 092709750) NOT DETECTED NOT DETECT [facility] ClinicsHuman Metapneumovirus (PCR)2019-11-29 05:35:00* Test Item Value Reference Range Interpretation Comments Human Metapneumovirus (PCR) (test code = 525964369) DETECTED NO T DETECT ABNORMALEast Houston Hospital and ClinicsAdenovirus (PCR)2019-11-29 05:35:00* Test Item Value Reference Range Interpretation Comments Adenovirus (PCR) (test code = 714988046) NOT DETECTED NOT DETECT [facility] ClinicsCoronavirus Type HKU1 (PCR)2019-11-29 05:35:00* Test Item Value Reference Range Interpretation Comments Coronavirus Type HKU1 (PCR) (test code = Coronavirus T ype HKU1 (PCR)) NOT DETECTED NOT DETECT [facility] ClinicsCoronavirus Type NL63 (PCR)2019-11-29 05:35:00* Test Item Value Reference Range Interpretation Comments Coronavirus Type NL63 (PCR) (test code = Coronavirus T ype NL63 (PCR)) NOT DETECTED NOT DETECT [facility] ClinicsCoronavirus Type OC43 (PCR)2019-11-29 05:35:00* Test Item Value Reference Range Interpretation Comments Coronavirus Type OC43 (PCR) (test code = Coronavirus T ype OC43 (PCR)) NOT DETECTED NOT DETECT [facility] ClinicsCoronavirus Type 229E (PCR)2019-11-29 05:35:00* Test Item Value Reference Range Interpretation Comments Coronavirus Type 229E (PCR) (test code = Coronavirus T ype 229E (PCR)) NOT DETECTED NOT DETECT Test performed at [place] [address]RESULTS HAVE BEEN CALLED TO THE [facility] CenterInfluenza virus A and B antigen identification by immunofluorescence 2019-11-29 05:28:00* Test Item Value Reference Range Interpretation Comments Influenza Virus Types A,B Antigen (test code = 88249-1) NEGATIVE NEGATIVE [facility] ClinicsInfluenza virus A and B antigen identification by jahrxuvwkufvzuitlk8228-15-93 05:28:00* Test Item Value Reference Range Interpretation Comments Influenza Virus Types A,B Antigen (test code = 13154-9) NEGATIVE NEGATIVE [facility] ClinicsHIV (1&2) Hgovaqrm6911-46-63 17:15:00* Test Item Value Reference Range Interpretation Comments HIV (1&2) Antibody (test code = 20910-7) NON-REACTIVE NONREACTIVE [facility] ClinicsHIV P24 Sajfwaz2955-73-07 17:15:00* Test Item Value Reference Range Interpretation Comments HIV P24 Antigen (test code = HIV P24 Antigen) NON-REACTIVE NONREACT SHAVON [facility] ClinicsHIV 1 and 2 antibody detection qualitative by rapid uwpzwcxywnm6733-31-68 16:00:00* Test Item Value Reference Range Interpretation Comments HIV (1&2) Antibody (test code = 99331-2) NON-REACTIVE NONREACTIVE [facility] ClinicsFluoroscopic procedure less than one hour qxrrzheu6327-55-80 16:00:00* Test Item Value Reference Range Interpretation Comments HIV P24 Antigen (test code = HIV P24 Antigen) NON-REACTIVE NONREACT SHAVON [facility] CampusV 1 and 2 antibody detection qualitative by rapid uwgqswuzudo3099-32-01 16:00:00* Test Item Value Reference Range Interpretation Comments HIV (1&2) Antibody (test code = 44109-4) NON-REACTIVE NONREACTIVE [facility] ClinicsFluoroscopic procedure less than one hour tbtkxtww8662-37-99 16:00:00* Test Item Value Reference Range Interpretation Comments HIV P24 Antigen (test code = HIV P24 Antigen) NON-REACTIVE NONREACT SHAVON [facility] ClinicsTotal Jltenwwkv6555-04-68 08:33:00* Test Item Value Reference Range Interpretation Comments Total Bilirubin (test code = 1975-2) 0.4 0.2-1.2 [facility] ClinicsAspartate Amino Transf (AST/SGOT) 2019-11-28 08:33:00* Test Item Value Reference Range Interpretation Comments Aspartate Amino Transf (AST/SGOT) (test code = Aspartate Amino Transf (AST/SGOT)) 53 5-34 H [facility] ClinicsAlanine Aminotransferase (ALT/SGPT) 2019-11-28 08:33:00* Test Item Value Reference Range Interpretation Comments Alanine Aminotransferase (ALT/SGPT) (test code = 1742-6) 36 0-55 [facility] ClinicsTotal Terddli6637-99-00 08:33:00* Test Item Value Reference Range Interpretation Comments Total Protein (test code = 2885-2) 9.2 6.5-8.1 H [facility] ClinicsAlbumin2020-03-21 08:33:00* Test Item Value Reference Range Interpretation Comments Albumin (test code = 1751-7) 3.0 3.5-5.0 L [facility] ClinicsGlobulin2020-03-21 08:33:00* Test Item Value Reference Range Interpretation Comments Globulin (test code = 56220-8) 6.2 2.3-3.5 H [facility] ClinicsAlbumin/Globulin Cqoox8133-61-49 08:33:00 * Test Item Value Reference Range Interpretation Comments Albumin/Globulin Ratio (test code = 1759-0) 0.5 0.8-2.0 L [facility] ClinicsAlkaline Hvbserfjqzv1231-86-24 08:33:00* Test Item Value Reference Range Interpretation Comments Alkaline Phosphatase (test code = 6768-6) 18 40-150 L [facility] ClinicsNeutrophils (%) (Auto)2019-11-28 07:52:00 * Test Item Value Reference Range Interpretation Comments Neutrophils (%) (Auto) (test code = 63258-6) 49.8 38.7-80.0 [facility] ClinicsLymphocytes (%) (Auto)2019-11-28 07:52:00 * Test Item Value Reference Range Interpretation Comments Lymphocytes (%) (Auto) (test code = 736-9) 45.3 18.0-39.1 H [facility] ClinicsMonocytes (%) (Auto)2019-11-28 07:52:00* Test Item Value Reference Range Interpretation Comments Monocytes (%) (Auto) (test code = 5905-5) 4.3 4.4-11.3 L [facility] ClinicsEosinophils (%) (Auto)2019-11-28 07:52:00 * Test Item Value Reference Range Interpretation Comments Eosinophils (%) (Auto) (test code = 713-8) 0.0 0.0-6.0 [facility] ClinicsBasophils (%) (Auto)2019-11-28 07:52:00* Test Item Value Reference Range Interpretation Comments Basophils (%) (Auto) (test code = 706-2) 0.3 0.0-1.0 [facility] ClinicsIM GRANULOCYTES %2019-11-28 07:52:00* Test Item Value Reference Range Interpretation Comments IM GRANULOCYTES % (test code = IM GRANULOCYTES %) 0.3 0.0- 1.0 [facility] ClinicsNeutrophils # (Auto)2019-11-28 07:52:00* Test Item Value Reference Range Interpretation Comments Neutrophils # (Auto) (test code = 751-8) 1.9 2.1-6.9 L [facility] ClinicsLymphocytes # (Auto)2019-11-28 07:52:00* Test Item Value Reference Range Interpretation Comments Lymphocytes # (Auto) (test code = 95787-8) 1.7 1.0-3.2 [facility] ClinicsMonocytes # (Auto)2019-11-28 07:52:00* Test Item Value Reference Range Interpretation Comments Monocytes # (Auto) (test code = 742-7) 0.2 0.2-0.8 [facility] ClinicsEosinophils # (Auto)2019-11-28 07:52:00* Test Item Value Reference Range Interpretation Comments Eosinophils # (Auto) (test code = 711-2) 0.0 0.0-0.4 [facility] ClinicsBasophils # (Auto)2019-11-28 07:52:00* Test Item Value Reference Range Interpretation Comments Basophils # (Auto) (test code = 704-7) 0.0 0.0-0.1 [facility] ClinicsAbsolute Immature Granulocyte (auto 2019-11-28 07:52:00* Test Item Value Reference Range Interpretation Comments Absolute Immature Granulocyte (auto (dana t code = Absolute Immature Granulocyte (auto) 0.01 0-0.1 [facility] Brookodium Ycjlh9461-83-12 07:22:00* Test Item Value Reference Range Interpretation Comments Sodium Level (test code = 2951-2) 133 136-145 L [facility] ClinicsPotassium Uwpft5702-90-21 07:22:00* Test Item Value Reference Range Interpretation Comments Potassium Level (test code = 2823-3) 4.2 3.5-5.1 [facility] ClinicsChloride Rerzc8768-13-80 07:22:00* Test Item Value Reference Range Interpretation Comments Chloride Level (test code = 2075-0) 104 98-107 [facility] ClinicsCarbon Dioxide Whrou5228-11-01 07:22:00* Test Item Value Reference Range Interpretation Comments Carbon Dioxide Level (test code = 2028-9) 24 22-29 [facility] ClinicsAnion Ore2421-73-10 07:22:00* Test Item Value Reference Range Interpretation Comments Anion Gap (test code = 57079-4) 9.2 8-16 [facility] ClinicsBlood Urea Pabixspw3717-47-23 07:22:00* Test Item Value Reference Range Interpretation Comments Blood Urea Nitrogen (test code = 3094-0) 10 7-26 [facility] ClinicsCreatinine2020-03-21 07:22:00* Test Item Value Reference Range Interpretation Comments Creatinine (test code = 2160-0) 0.83 0.57-1.11 [facility] ClinicsBUN/Creatinine Lvqeb7005-44-62 07:22:00* Test Item Value Reference Range Interpretation Comments BUN/Creatinine Ratio (test code = 3097-3) 12 6-25 [facility] ClinicsEstimat Glomerular Filtration Rate 2019-11-28 07:22:00* Test Item Value Reference Range Interpretation Comments Estimat Glomerular Filtration Rate (test code = 407670780) > 60 >60 Ranges were taken from the National Kidney Disease Education Program and the [facility] [employer] literature.Reference ranges:60 or greater: Trdhld46-27 ( for 3 consecutive months): Chronic kidney disease 15 or less: Kidney failureEast Houston Hospital and ClinicsGlucose Nndvt4795-81-58 07:22:00* Test Item Value Reference Range Interpretation Comments Glucose Level (test code = KLE1761) 94 74-118 [facility] ClinicsCalcium Gglmy1432-56-02 07:22:00* Test Item Value Reference Range Interpretation Comments Calcium Level (test code = 25446-0) 8.2 8.4-10.2 L [facility] ClinicsHemoglobin A1c Accjesy3275-28-74 07:22:00 * Test Item Value Reference Range Interpretation Comments Hemoglobin A1c Percent (test code = Hemoglobin A1c Percent) 5.1 4.0-7.0 [facility] ClinicsMagnesium Dbkom3608-57-83 07:22:00* Test Item Value Reference Range Interpretation Comments Magnesium Level (test code = 71700-7) 2.0 1.3-2.1 [facility] ClinicsTriglycerides Yyekm6637-45-39 07:22:00* Test Item Value Reference Range Interpretation Comments Triglycerides Level (test code = 2571-8) 90 0-149 [facility] ClinicsCholesterol Zrxsh4483-20-11 07:22:00* Test Item Value Reference Range Interpretation Comments Cholesterol Level (test code = 2093-3) 78 0-199 Less than 200 mg/dL Low Dyoa925 - 239 mg/dL Borderline Ashs495 m g/dl and greater High Risk [facility] ClinicsLDL Cjgydrycmhr8065-77-67 07:22:00* Test Item Value Reference Range Interpretation Comments LDL Cholesterol (test code = 2089-1) 44 60-130 L [facility] ClinicsHDL Cskjnxixccn6115-66-21 07:22:00* Test Item Value Reference Range Interpretation Comments HDL Cholesterol (test code = 2085-9) 16 40-60 L [facility] ClinicsCholesterol/HDL Ybywj1796-37-31 07:22:00 * Test Item Value Reference Range Interpretation Comments Cholesterol/HDL Ratio (test code = 9830-1) 4.9 3.0-3.6 H [facility] ClinicsFluoroscopic procedure less than one hour cuesamag3574-10-96 06:24:00* Test Item Value Reference Range Interpretation Comments Hemoglobin A1c Percent (test code = Hemoglobin A1c Percent) 5.1 4.0-7.0 [facility] Brookerum or plasma magnesium measurement (mass/volume)2019-11-28 06:24:00* Test Item Value Reference Range Interpretation Comments Magnesium Level (test code = 19797-1) 2.0 1.3-2.1 [facility] Brookerum or plasma triglyceride measurement (mass/volume)2019-11-28 06:24:00* Test Item Value Reference Range Interpretation Comments Triglycerides Level (test code = 2571-8) 90 0-149 [facility] Brookerum or plasma cholesterol measurement (mass/volume)2019-11-28 06:24:00* Test Item Value Reference Range Interpretation Comments Cholesterol Level (test code = 2093-3) 78 0-199 Less than 200 mg/dL Low Bsfv247 - 239 mg/dL Borderline Krik855 m g/dl and greater High Risk [facility] Brookerum or plasma cholesterol in LDL measurement (mass/volume) 2019-11-28 06:24:00* Test Item Value Reference Range Interpretation Comments LDL Cholesterol (test code = 2089-1) 44 60-130 [facility] Brookerum or plasma cholesterol in HDL measurement (mass/volume)2019-11-28 06:24:00* Test Item Value Reference Range Interpretation Comments HDL Cholesterol (test code = 2085-9) 16 40-60 [facility] Brookerum or plasma total cholesterol/cholesterol in HDL mass mjmrw9120-23-83 06:24:00* Test Item Value Reference Range Interpretation Comments Cholesterol/HDL Ratio (test code = 9830-1) 4.9 3.0-3.6 [facility] Brookerum or plasma magnesium measurement (mass/volume)2019-11-28 06:24:00* Test Item Value Reference Range Interpretation Comments Magnesium Level (test code = 15933-3) 2.0 1.3-2.1 [facility] ClinicsFluoroscopic procedure less than one hour ntfgmile4731-42-84 22:17:00* Test Item Value Reference Range Interpretation Comments Chlamydia pneumoniae DNA (PCR) (test code = Chlamydia pneumoniae DNA (PCR)) NOT DETECTED NOT DETECT Test performed at [facility] [place], [place] [address]RESULTS HAVE BEEN CALLED TO THE [facility] CenterRespiratory virus ckqyc9908-01-81 22:17:00* Test Item Value Reference Range Interpretation Comments Influenza Type A (RT-PCR) (test code = 015244939) NOT DETECTED NOT DETECT [facility] less than one hour avdqfvfd4398-63-80 22:17:00* Test Item Value Reference Range Interpretation Comments Mycoplasma pneumoniae (PCR) (test code = Mycoplasma pn eumoniae (PCR)) NOT DETECTED NOT DETECT [facility]lineRespiratory virus hgfaz2551-71-68 22:17:00* Test Item Value Reference Range Interpretation Comments Influenza Type B (RT-PCR) (test code = 337032611) NOT DETECTED NOT DETECT [facility] scsjq4991-96-81 22:17:00* Test Item Value Reference Range Interpretation Comments Respiratory Syncytial Virus (PCR) (test code = 903080649) NO T DETECTED NOT DETECT [facility]iratory virus ajjap1668-48-21 22:17:00* Test Item Value Reference Range Interpretation Comments Bordetella pertussis DNA (PCR) (test code = 733674818) NOT DETEC RONA NOT DETECT [facility] qtoof9019-59-48 22:17:00* Test Item Value Reference Range Interpretation Comments Parainfluenza Type 1 (PCR) (test code = 312941230) NOT DETECTED NOT DETECT [facility] ozbem0784-37-00 22:17:00* Test Item Value Reference Range Interpretation Comments Parainfluenza Type 2 (PCR) (test code = 676439337) NOT DETECTED NOT DETECT [facility]Respiratory virus dxhjj9764-62-50 22:17:00* Test Item Value Reference Range Interpretation Comments Parainfluenza Type 3 (PCR) (test code = 722232426) NOT DETECTED NOT DETECT [facility]lineFluoroscopic procedure less than one hour tltwmdig0210-42-69 22:17:00* Test Item Value Reference Range Interpretation Comments Parainfluenza Type 4 (PCR) (test code = Parainfluenza Type 4 (PCR)) NOT DETECTED NOT DETECT [facility]Res[facility] virus bwffd3299-51-44 22:17:00* Test Item Value Reference Range Interpretation Comments Rhinovirus (PCR) (test code = 125911845) NOT DETECTED NOT DETECT [facility] ClinicsRespiratory virus onjhk9231-75-49 22:17:00* Test Item Value Reference Range Interpretation Comments Human Metapneumovirus (PCR) (test code = 189022587) DETECTED NO T DETECT ABNORMALCH[facility] HospitalRespiratory virus qgkub0270-47-95 22:17:00* Test Item Value Reference Range Interpretation Comments Adenovirus (PCR) (test code = 353269588) NOT DETECTED NOT DETECT [facility] ClinicsFluoroscopic procedure less than one hour xnaokbcl9177-15-13 22:17:00* Test Item Value Reference Range Interpretation Comments Coronavirus Type 229E (PCR) (test code = Coronavirus T ype 229E (PCR)) NOT DETECTED NOT DETECT Test performed at [place] [address]RESULTS HAVE BEEN CALLED TO THE PHYSICIANEast [facility] Hospital and ClinicsFluoroscopic procedure less than one hour cjwpwxnm8205-07-10 22:17:00* Test Item Value Reference Range Interpretation Comments Coronavirus Type HKU1 (PCR) (test code = Coronavirus T ype HKU1 (PCR)) NOT DETECTED NOT DETECT [facility] ClinicsFluoroscopic procedure less than one hour ewotyzoo3514-58-40 22:17:00* Test Item Value Reference Range Interpretation Comments Coronavirus Type NL63 (PCR) (test code = Coronavirus T ype NL63 (PCR)) NOT DETECTED NOT DETECT [facility] ClinicsFluoroscopic procedure less than one hour plgludju3762-38-63 22:17:00* Test Item Value Reference Range Interpretation Comments Coronavirus Type OC43 (PCR) (test code = Coronavirus T ype OC43 (PCR)) NOT DETECTED NOT DETECT [facility] ClinicsFluoroscopic procedure less than one hour qqujappo6513-61-99 22:17:00* Test Item Value Reference Range Interpretation Comments Coronavirus (PCR) (test code = Coronavirus (PCR)) NOT DETECTED NOTD ETECTED CORONAVIRUS QEJF-ZDQ-5-RT-PCR (RESPIRATORY)This test has been validated but FDA' s independent review of the validation is pending. This test is performed as a l aboratory developed test; independent review of the validation under FDA's Emerg ency Use Authorization (EUA) authority will be performed according to current [facility] requirements.We will continue to follow federal and state requirements fo r both notification of results and confirmatory testing that is required by anot her agency.This test was developed and its performance characteristics determine d by [employer]. It has not been cleared or approved by the U.S. Food and Drug Administration. Results should be used in conjunction with clinical finding s, and should not form the sole basis for a diagnosis or treatment decision.Spec imen sent to [facility] and performed at [facility], [address] [place] [address]. [address]XCSEast [facility] and ClinicsFluoroscopic procedure less than one hour hoawznkf6048-13-46 22:17:00* Test Item Value Reference Range Interpretation Comments Chlamydia pneumoniae DNA (PCR) (test code = Chlamydia pneumoniae DNA (PCR)) NOT DETECTED NOT DETECT Test performed at [facility] [place], [place] [address]RESULTS [facility] virus amjxs4962-70-72 22:17:00* Test Item Value Reference Range Interpretation Comments Influenza Type A (RT-PCR) (test code = 542888683) NOT DETECTED NOT DETECT [facility] ClinicsFluoroscopic procedure less than one hour veilmipo1294-96-95 22:17:00* Test Item Value Reference Range Interpretation Comments Mycoplasma pneumoniae (PCR) (test code = Mycoplasma pn eumoniae (PCR)) NOT DETECTED NOT DETECT [facility] ClinicsRespiratory virus xkiex1830-86-78 22:17:00* Test Item Value Reference Range Interpretation Comments Influenza Type B (RT-PCR) (test code = 673844251) NOT DETECTED NOT DETECT [facility] ClinicsRespiratory virus puuxu1241-15-97 22:17:00* Test Item Value Reference Range Interpretation Comments Respiratory Syncytial Virus (PCR) (test code = 156069217) NO T DETECTED NOT DETECT [facility] ClinicsRespiratory virus tfnxy0233-31-23 22:17:00* Test Item Value Reference Range Interpretation Comments Bordetella pertussis DNA (PCR) (test code = 375605906) NOT DETEC RONA NOT DETECT [facility] dcfwb5685-69-97 22:17:00* Test Item Value Reference Range Interpretation Comments Parainfluenza Type 1 (PCR) (test code = 764532109) NOT DETECTED NOT DETECT [facility]icsRespiratory virus rpsqe6246-55-13 22:17:00* Test Item Value Reference Range Interpretation Comments Parainfluenza Type 2 (PCR) (test code = 015041692) NOT DETECTED NOT DETECT [facility] scfua5382-22-89 22:17:00* Test Item Value Reference Range Interpretation Comments Parainfluenza Type 3 (PCR) (test code = 128967636) NOT DETECTED NOT DETECT [facility] ClinicsFluoroscopic procedure less than one hour mtseuyvw6504-09-06 22:17:00* Test Item Value Reference Range Interpretation Comments Parainfluenza Type 4 (PCR) (test code = Parainfluenza Type 4 (PCR)) NOT DETECTED NOT DETECT [facility]icsRespiratory virus xfwyn9288-87-23 22:17:00* Test Item Value Reference Range Interpretation Comments Rhinovirus (PCR) (test code = 709517148) NOT DETECTED NOT DETECT [facility]icsRespiratory virus tanmf9359-93-39 22:17:00* Test Item Value Reference Range Interpretation Comments Human Metapneumovirus (PCR) (test code = 648260242) DETECTED NO T DETECT [facility]NORMALEast [facility] ClinicsRespiratory virus penty2474-64-22 22:17:00* Test Item Value Reference Range Interpretation Comments Adenovirus (PCR) (test code = 574012194) NOT DETECTED NOT DETECT [facility] ClinicsFluoroscopic procedure less than one hour mbvnfxkf0021-69-28 22:17:00* Test Item Value Reference Range Interpretation Comments Coronavirus Type 229E (PCR) (test code = Coronavirus T ype 229E (PCR)) NOT DETECTED NOT DETECT Test performed at [facility] [place], [place] [address]RESULTS HAVE BEEN CALLED TO THE PHYSICIANEast [facility] ClinicsFluoroscopic procedure less than one hour foiyowvt3060-06-80 22:17:00* Test Item Value Reference Range Interpretation Comments Coronavirus Type HKU1 (PCR) (test code = Coronavirus T ype HKU1 (PCR)) NOT DETECTED NOT DETECT [facility] ClinicsFluoroscopic procedure less than one hour baegijlc5214-00-91 22:17:00* Test Item Value Reference Range Interpretation Comments Coronavirus Type NL63 (PCR) (test code = Coronavirus T ype NL63 (PCR)) NOT DETECTED NOT DETECT [facility] ClinicsFluoroscopic procedure less than one hour rvmdalag8973-43-05 22:17:00* Test Item Value Reference Range Interpretation Comments Coronavirus Type OC43 (PCR) (test code = Coronavirus T ype OC43 (PCR)) NOT DETECTED NOT DETECT [facility] ClinicsPlatelet Gdimrvqw4513-36-85 21:06:00* Test Item Value Reference Range Interpretation Comments Platelet Estimate (test code = 55621-4) ADEQUATE [facility] ClinicsPlatelet Morphology Motnwkl1870-13-31 21:06:00* Test Item Value Reference Range Interpretation Comments Platelet Morphology Comment (test code = 94315-1) NORMAL [facility] ClinicsHypochromasia2020-03-20 21:06:00* Test Item Value Reference Range Interpretation Comments Hypochromasia (test code = 728-6) SLIGHT [facility] ClinicsAnisocytosis2020-03-20 21:06:00* Test Item Value Reference Range Interpretation Comments Anisocytosis (test code = 702-1) SLIGHT [facility] ClinicsRed Cell Morphology Bkjules5830-02-23 21:06:00* Test Item Value Reference Range Interpretation Comments Red Cell Morphology Comment (test code = 6742-1) NORMAL [facility] ClinicsCT CHEST W0479-24-42 20:40:00 [facility] [address] [place] [address] Patient Name: CHRISTINE OTTO MR #: [id number] : 1990 Age/Sex: 29/F Req #: [id number] [facility] Physician: Ordered by: ERIC KWAN NP Report #: [id number] Location: ER Room/Bed: Procedure: CT/CT CHEST W [...] COPY TO: ERIC KWAN NP Lactic Acid Cvosw0462-85-90 20:37:00* Test Item Value Reference Range Interpretation Comments Lactic Acid Level (test code = Lactic Acid Level) 0.7 0.5- 2.0 [facility] ClinicsGroup A Streptococcus Pmqgdm1483-68-69 20:28:00* Test Item Value Reference Range Interpretation Comments Group A Streptococcus Screen (test code = 19417-3) NEGATIVE NEG [facility]IVE [facility]ptococcus pyogenes antigen detection in olmzid9300-04-36 20:10:00* Test Item Value Reference Range Interpretation Comments Group A Streptococcus Screen (test code = 13317-5) NEGATIVE NEG ATIVE [facility] Brooktreptococcus pyogenes antigen detection in dvqygo7522-88-66 20:10:00* Test Item Value Reference Range Interpretation Comments Group A Streptococcus Screen (test code = 54098-4) NEGATIVE NEG ATIVE [facility] ClinicsFluoroscopic procedure less than one hour bukhwgok3861-36-00 19:37:00* Test Item Value Reference Range Interpretation Comments Lactic Acid Level (test code = Lactic Acid Level) 0.7 0.5- 2.0 [facility] ClinicsFluoroscopic procedure less than one hour amgsgohu9287-19-67 19:37:00* Test Item Value Reference Range Interpretation Comments Lactic Acid Level (test code = Lactic Acid Level) 0.7 0.5- 2.0 [facility] ClinicsHuman Chorionic Gonadotropin, Qual 2019-11-27 19:22:00* Test Item Value Reference Range Interpretation Comments Human Chorionic Gonadotropin, Qual (test code = 2118-8) NEGATIVE NEGATIVE [facility] ClinicsTroponin Q0533-00-06 19:19:00* Test Item Value Reference Range Interpretation Comments Troponin I (test code = PZO0324) 0.034 0-0.300 [facility] ClinicsB-Type Natriuretic Qgnxmmv0046-28-56 19:18:00* Test Item Value Reference Range Interpretation Comments B-Type Natriuretic Peptide (test code = 19132-7) 14.3 0-100 [facility] ClinicsBlood vbykfka1686-68-94 18:27:00* Test Item Value Reference Range Interpretation Comments Blood Culture (test code = 40003877) NO GROWTH AFTER 5 DAYS, FINAL REPORT [facility]icsBlfederal [facility] [place] bezhyon3713-78-77 18:27:00* Test Item Value Reference Range Interpretation Comments Blood Culture (test code = 29773999) NO GROWTH AFTER 5 DAYS, FINAL REPORT [facility] platelets count by estimate (number/volume)2019-11-27 18:26:00* Test Item Value Reference Range Interpretation Comments Platelet Estimate (test code = 33750-8) ADEQUATE [facility] ClinicsPlatelet mmwcqpfiij4160-75-44 18:26:00* Test Item Value Reference Range Interpretation Comments Platelet Morphology Comment (test code = 37022-5) NORMAL [facility]icsBlfederal medical center, [place] hypochromia detection by light rwrvgjsgsd8667-21-91 18:26:00* Test Item Value Reference Range Interpretation Comments Hypochromasia (test code = 728-6) SLIGHT [facility] ClinicsBlood anisocytosis detection by light uveuinvfqz3745-51-16 18:26:00* Test Item Value Reference Range Interpretation Comments Anisocytosis (test code = 702-1) SLIGHT [facility] ClinicsRB yxszedkyok9152-68-73 18:26:00* Test Item Value Reference Range Interpretation Comments Red Cell Morphology Comment (test code = 6742-1) NORMAL [facility]-yUpj1463-00-74 18:26:00* Test Item Value Reference Range Interpretation Comments B-Type Natriuretic Peptide (test code = 69754-2) 14.3 0-100 [facility] ClinicsTroponin I measurement by highly sensitive enzyme beswzhsuuav9934-34-07 18:26:00* Test Item Value Reference Range Interpretation Comments Troponin I (test code = 86887-1) 0.034 0-0.300 [facility] Brookerum or plasma choriogonadotropin ( test) pskomjfjn3742-91-91 18:26:00* Test Item Value Reference Range Interpretation Comments Human Chorionic Gonadotropin, Qual (test code = 2118-8) NEGATIVE NEGATIVE [facility]-hShq1168-68-02 18:26:00* Test Item Value Reference Range Interpretation Comments B-Type Natriuretic Peptide (test code = 00229-9) 14.3 0-100 [facility] ClinicsTroponin I measurement by highly sensitive enzyme hkuhkmavyjc4119-11-06 18:26:00* Test Item Value Reference Range Interpretation Comments Troponin I (test code = 90295-5) 0.034 0-0.300 [facility]2019-11-24 22:14:00 [facility] [address] [address] Patient Name: CHRISTINE OTTO MR #: [id number] : 1990 Age/Sex: 29/F Req #: [id number] Adm Physician: Ordered by: JONO RICH MD Report #: [id number] Location: ER Room/Bed: Procedur e: [id number] DX/CHEST SINGLE (NOT PORTABLE) Exam Date: 11/24/19 [...] JONO PABLO MD Influenza Virus Types A,B Qnsfaam1529-28-47 21:50:00* Test Item Value Reference Range Interpretation Comments Influenza Virus Types A,B Antigen (test code = 21682-0) NEGATIVE NEGATIVE [facility] ClinicsGroup A Streptococcus Djangg6619-97-32 21:43:00* Test Item Value Reference Range Interpretation Comments Group A Streptococcus Screen (test code = 12790-3) NEGATIVE NEG ATIVE [facility] ClinicsUrine HCH8830-12-34 21:27:00* Test Item Value Reference Range Interpretation Comments Urine WBC (test code = 5821-4) NONE 0-5 [facility] ClinicsUrine THG5761-84-90 21:27:00* Test Item Value Reference Range Interpretation Comments Urine RBC (test code = 93001-5) NONE 0-5 [facility] ClinicsUrine Bmfjnuxo0015-73-56 21:27:00* Test Item Value Reference Range Interpretation Comments Urine Bacteria (test code = 69531-0) RARE NONE [facility] ClinicsUrine Epithelial Geolm9977-67-61 21:27:00 * Test Item Value Reference Range Interpretation Comments Urine Epithelial Cells (test code = 91717-2) MODERATE NONE [facility] ClinicsUrine TVZ6651-02-49 21:27:00* Test Item Value Reference Range Interpretation Comments Urine WBC (test code = 5821-4) NONE 0-5 [facility] ClinicsUrine WBZ0879-68-46 21:27:00* Test Item Value Reference Range Interpretation Comments Urine RBC (test code = 77771-4) NONE 0-5 [facility] ClinicsUrine Omxxvnyu7706-63-40 21:27:00* Test Item Value Reference Range Interpretation Comments Urine Bacteria (test code = 33433-4) RARE NONE [facility] ClinicsUrine Epithelial Rxisa1117-01-93 21:27:00 * Test Item Value Reference Range Interpretation Comments Urine Epithelial Cells (test code = 28991-6) MODERATE NONE [facility] ClinicsUrine DMG1100-87-35 21:27:00* Test Item Value Reference Range Interpretation Comments Urine WBC (test code = 5821-4) NONE 0-5 [facility] ClinicsUrine CEM9049-29-23 21:27:00* Test Item Value Reference Range Interpretation Comments Urine RBC (test code = 35638-4) NONE 0-5 [facility] ClinicsUrine Vtrmmcam2161-80-55 21:27:00* Test Item Value Reference Range Interpretation Comments Urine Bacteria (test code = 34800-4) RARE NONE [facility] ClinicsUrine Epithelial Gxhyk6200-62-76 21:27:00 * Test Item Value Reference Range Interpretation Comments Urine Epithelial Cells (test code = 83691-4) MODERATE NONE [facility] ClinicsUrine Txqvz6997-62-65 21:21:00* Test Item Value Reference Range Interpretation Comments Urine Color (test code = 5778-6) YELLOW YELLOW [facility] ClinicsUrine Habrynv8957-53-49 21:21:00* Test Item Value Reference Range Interpretation Comments Urine Clarity (test code = 12939-5) SL CLOUDY CLEAR [facility] ClinicsUrine Specific Soplohj7506-25-01 21:21:00 * Test Item Value Reference Range Interpretation Comments Urine Specific [place] (test code = 5811-5) 1.025 1.010-1.02 5 [facility] ClinicsUrine vT4056-40-29 21:21:00* Test Item Value Reference Range Interpretation Comments Urine pH (test code = 22050-9) 6.5 5-7 [facility] ClinicsUrine Leukocyte Npvrotwb6404-62-60 21:21:00* Test Item Value Reference Range Interpretation Comments Urine Leukocyte Esterase (test code = 5799-2) NEGATIVE NEGATIVE [facility] ClinicsUrine Lfbtjsn7626-30-86 21:21:00* Test Item Value Reference Range Interpretation Comments Urine Nitrite (test code = 08965-8) NEGATIVE NEGATIVE [facility] ClinicsUrine Lodyvts3798-86-58 21:21:00* Test Item Value Reference Range Interpretation Comments Urine Protein (test code = 5804-0) 1+ NEGATIVE H [facility] ClinicsUrine Glucose (UA)2019-11-23 21:21:00* Test Item Value Reference Range Interpretation Comments Urine Glucose (UA) (test code = 2349-9) NEGATIVE NEGATIVE [facility] ClinicsUrine Cgxkjwl1664-19-28 21:21:00* Test Item Value Reference Range Interpretation Comments Urine Ketones (test code = 42126-6) NEGATIVE NEGATIVE [facility] ClinicsUrine Gfdctmibfyan5442-55-59 21:21:00* Test Item Value Reference Range Interpretation Comments Urine Urobilinogen (test code = 14086-0) 1 0.2-1 [facility] ClinicsUrine Mrpecmsav7113-95-12 21:21:00* Test Item Value Reference Range Interpretation Comments Urine Bilirubin (test code = 1978-6) NEGATIVE NEGATIVE [facility] Scfmy3639-03-71 21:21:00* Test Item Value Reference Range Interpretation Comments Urine Blood (test code = 00671-1) NEGATIVE NEGATIVE [facility] ClinicsUrine Ssdld2680-09-34 21:21:00* Test Item Value Reference Range Interpretation Comments Urine Color (test code = 5778-6) YELLOW YELLOW [facility] ClinicsUrine Vttnzea0942-99-45 21:21:00* Test Item Value Reference Range Interpretation Comments Urine Clarity (test code = 79761-6) SL CLOUDY CLEAR [facility] ClinicsUrine Specific Orijdor3799-45-83 21:21:00 * Test Item Value Reference Range Interpretation Comments Urine Specific [place] (test code = 5811-5) 1.025 1.010-1.02 5 [facility] ClinicsUrine dC4505-98-67 21:21:00* Test Item Value Reference Range Interpretation Comments Urine pH (test code = 57225-3) 6.5 5-7 [facility] ClinicsUrine Leukocyte Quwjntyd2355-15-22 21:21:00* Test Item Value Reference Range Interpretation Comments Urine Leukocyte Esterase (test code = 5799-2) NEGATIVE NEGATIVE [facility] ClinicsUrine Vapxwlp7567-64-81 21:21:00* Test Item Value Reference Range Interpretation Comments Urine Nitrite (test code = 03152-4) NEGATIVE NEGATIVE [facility] ClinicsUrine Eugbpeg4279-26-29 21:21:00* Test Item Value Reference Range Interpretation Comments Urine Protein (test code = 5804-0) 1+ NEGATIVE H [facility] Glucose (UA)2019-11-23 21:21:00* Test Item Value Reference Range Interpretation Comments Urine Glucose (UA) (test code = 2349-9) NEGATIVE NEGATIVE [facility] ClinicsUrine Qkesymc5122-76-77 21:21:00* Test Item Value Reference Range Interpretation Comments Urine Ketones (test code = 19388-6) NEGATIVE NEGATIVE [facility] Hqxmaytryvmk4942-50-31 21:21:00* Test Item Value Reference Range Interpretation Comments Urine Urobilinogen (test code = 21208-9) 1 0.2-1 [facility] Sjrorqajg3218-15-96 21:21:00* Test Item Value Reference Range Interpretation Comments Urine Bilirubin (test code = 1978-6) NEGATIVE NEGATIVE [facility] Dgzzy0327-01-60 21:21:00* Test Item Value Reference Range Interpretation Comments Urine Blood (test code = 20522-3) NEGATIVE NEGATIVE [facility] ClinicsUrine Skgxa6174-43-29 21:21:00* Test Item Value Reference Range Interpretation Comments Urine Color (test code = 5778-6) YELLOW YELLOW [facility] ClinicsUrine Sryuaqp6354-63-31 21:21:00* Test Item Value Reference Range Interpretation Comments Urine Clarity (test code = 87924-0) SL CLOUDY CLEAR [facility] ClinicsUrine Specific Pzivtyk0454-59-58 21:21:00 * Test Item Value Reference Range Interpretation Comments Urine Specific [place] (test code = 5811-5) 1.025 1.010-1.02 5 [facility] ClinicsUrine jE2888-93-74 21:21:00* Test Item Value Reference Range Interpretation Comments Urine pH (test code = 44959-0) 6.5 5-7 [facility] Leukocyte Wdjnfzsx4996-13-08 21:21:00* Test Item Value Reference Range Interpretation Comments Urine Leukocyte Esterase (test code = 5799-2) NEGATIVE NEGATIVE [facility] ClinicsUrine Ierurdq1006-48-59 21:21:00* Test Item Value Reference Range Interpretation Comments Urine Nitrite (test code = 00023-3) NEGATIVE NEGATIVE [facility] ClinicsUrine Clkvtgi2931-34-71 21:21:00* Test Item Value Reference Range Interpretation Comments Urine Protein (test code = 5804-0) 1+ NEGATIVE H [facility] ClinicsUrine Glucose (UA)2019-11-23 21:21:00* Test Item Value Reference Range Interpretation Comments Urine Glucose (UA) (test code = 2349-9) NEGATIVE NEGATIVE [facility] ClinicsUrine Kqtyafu8692-16-69 21:21:00* Test Item Value Reference Range Interpretation Comments Urine Ketones (test code = 96339-6) NEGATIVE NEGATIVE [facility] Hbeifxtqfnyx1383-53-68 21:21:00* Test Item Value Reference Range Interpretation Comments Urine Urobilinogen (test code = 93916-5) 1 0.2-1 [facility] ClinicsUrine Sgkloacuz1585-98-36 21:21:00* Test Item Value Reference Range Interpretation Comments Urine Bilirubin (test code = 1978-6) NEGATIVE NEGATIVE [facility] ClinicsUrine Lzgzb3775-58-84 21:21:00* Test Item Value Reference Range Interpretation Comments Urine Blood (test code = 11700-8) NEGATIVE NEGATIVE [facility] ClinicsCreatine Dxpyvv5632-18-10 21:07:00* Test Item Value Reference Range Interpretation Comments Creatine Kinase (test code = 2157-6) 397 29-168 H [facility] ClinicsCreatine Gunapa2600-91-03 21:07:00* Test Item Value Reference Range Interpretation Comments Creatine Kinase (test code = 2157-6) 397 29-168 H [facility] ClinicsCreatine Ukdupt4028-15-69 21:07:00* Test Item Value Reference Range Interpretation Comments Creatine Kinase (test code = 2157-6) 397 29-168 H [facility] ClinicsUrine color ptxzshgwsflfc2266-68-23 21:05:00* Test Item Value Reference Range Interpretation Comments Urine Color (test code = 5778-6) YELLOW YELLOW [facility] ClinicsUrine xbnmdfq8055-48-98 21:05:00* Test Item Value Reference Range Interpretation Comments Urine Clarity (test code = 04320-5) SL CLOUDY CLEAR [facility] gravity of Urine by Test strip 2019-11-23 21:05:00* Test Item Value Reference Range Interpretation Comments Urine Specific [place] (test code = 5811-5) 1.025 1.010-1.02 5 [facility] ClinicsUrine pH measurement by automated test lgvxb8312-71-71 21:05:00* Test Item Value Reference Range Interpretation Comments Urine pH (test code = 60426-3) 6.5 5-7 [facility] ClinicsUrine leukocyte esterase detection by zaxsegtd1721-74-81 21:05:00* Test Item Value Reference Range Interpretation Comments Urine Leukocyte Esterase (test code = 5799-2) NEGATIVE NEGATIVE [facility] ClinicsUrine nitrite uvomqeuge6491-92-74 21:05:00* Test Item Value Reference Range Interpretation Comments Urine Nitrite (test code = 58180-1) NEGATIVE NEGATIVE [facility] ClinicsUrine protein measurement by test strip (mass/volume)2019-11-23 21:05:00* Test Item Value Reference Range Interpretation Comments Urine Protein (test code = 5804-0) 1+ NEGATIVE [facility] ClinicsUrine glucose yszouozeq4795-43-52 21:05:00* Test Item Value Reference Range Interpretation Comments Urine Glucose (UA) (test code = 2349-9) NEGATIVE NEGATIVE [facility] ClinicsUrine ketones detection by automated test blbgw3434-76-45 21:05:00* Test Item Value Reference Range Interpretation Comments Urine Ketones (test code = 78508-9) NEGATIVE NEGATIVE [facility] ClinicsUrine urobilinogen measurement by test strip (mass/volume)2019-11-23 21:05:00* Test Item Value Reference Range Interpretation Comments Urine Urobilinogen (test code = 95199-8) 1 0.2-1 [facility] ClinicsUrine total bilirubin measurement (mass/volume)2019-11-23 21:05:00* Test Item Value Reference Range Interpretation Comments Urine Bilirubin (test code = 1978-6) NEGATIVE NEGATIVE [facility] ClinicsUrine erythrocytes hwdgatmfb8184-05-39 21:05:00* Test Item Value Reference Range Interpretation Comments Urine Blood (test code = 95150-7) NEGATIVE NEGATIVE [facility] ClinicsAutomated urine sediment leukocyte count by microscopy (number/high power field)2019-11-23 21:05:00* Test Item Value Reference Range Interpretation Comments Urine WBC (test code = 5821-4) NONE 0-5 [facility] ClinicsErythrocytes detection in urine sediment by light tmymfjkbpf8106-59-06 21:05:00* Test Item Value Reference Range Interpretation Comments Urine RBC (test code = 06311-6) NONE 0-5 [facility] ClinicsBacteria detection in urine sediment by light gkeirebfea1899-34-39 21:05:00* Test Item Value Reference Range Interpretation Comments Urine Bacteria (test code = 58187-7) RARE NONE [facility] ClinicsEpithelial cells detection in urine sediment by light zpwbhfrath6066-35-82 21:05:00* Test Item Value Reference Range Interpretation Comments Urine Epithelial Cells (test code = 45749-4) MODERATE NONE [facility] ClinicsHuman Chorionic Gonadotropin, Qual 2019-11-23 20:55:00* Test Item Value Reference Range Interpretation Comments Human Chorionic Gonadotropin, Qual (test code = 2118-8) NEGATIVE NEGATIVE [facility] ClinicsHuman Chorionic Gonadotropin, Qual 2019-11-23 20:55:00* Test Item Value Reference Range Interpretation Comments Human Chorionic Gonadotropin, Qual (test code = 2118-8) NEGATIVE NEGATIVE [facility] ClinicsInfluenza Virus Types A,B Antigen 2019-11-23 20:33:00* Test Item Value Reference Range Interpretation Comments Influenza Virus Types A,B Antigen (test code = 62820-7) NEGATIVE NEGATIVE [facility] ClinicsCreatine Kinase EQ9937-85-16 20:31:00* Test Item Value Reference Range Interpretation Comments Creatine Kinase MB (test code = 69965-7) 4.20 0-5.0 [facility] ClinicsTroponin I5613-09-72 20:31:00* Test Item Value Reference Range Interpretation Comments Troponin I (test code = CXO6369) 0.039 0-0.300 [facility] ClinicsCreatine Kinase HO3410-45-76 20:31:00* Test Item Value Reference Range Interpretation Comments Creatine Kinase MB (test code = 24508-9) 4.20 0-5.0 [facility] ClinicsTroponin K7892-44-65 20:31:00* Test Item Value Reference Range Interpretation Comments Troponin I (test code = SJF5956) 0.039 0-0.300 [facility] ClinicsCreatine Kinase QL9497-36-53 20:31:00* Test Item Value Reference Range Interpretation Comments Creatine Kinase MB (test code = 88459-7) 4.20 0-5.0 [facility] ClinicsGroup A Streptococcus Xqgcur9904-00-72 20:24:00* Test Item Value Reference Range Interpretation Comments Group A Streptococcus Screen (test code = 11075-1) NEGATIVE NEG [facility]IVE [facility] Wjalt6689-78-65 20:22:00* Test Item Value Reference Range Interpretation Comments Sodium Level (test code = 2951-2) 132 136-145 L [facility]icsPotassium Anmki9438-56-77 20:22:00* Test Item Value Reference Range Interpretation Comments Potassium Level (test code = 2823-3) 3.9 3.5-5.1 [facility] ClinicsChloride Pkecp6162-50-90 20:22:00* Test Item Value Reference Range Interpretation Comments Chloride Level (test code = 2075-0) 100 98-107 [facility] ClinicsCarbon Dioxide Zwdeu1664-86-75 20:22:00* Test Item Value Reference Range Interpretation Comments Carbon Dioxide Level (test code = 2028-9) 28 22-29 [facility] ClinicsAnion Ojq3409-47-95 20:22:00* Test Item Value Reference Range Interpretation Comments Anion Gap (test code = 48591-4) 7.9 8-16 L [facility] ClinicsBlood Urea Ekblpwmg6276-65-64 20:22:00* Test Item Value Reference Range Interpretation Comments Blood Urea Nitrogen (test code = 3094-0) 12 - [facility] ClinicsCreatinine2020-03-16 20:22:00* Test Item Value Reference Range Interpretation Comments Creatinine (test code = 2160-0) 1.06 0.57-1.11 [facility] ClinicsBUN/Creatinine Dduwc0939-55-96 20:22:00* Test Item Value Reference Range Interpretation Comments BUN/Creatinine Ratio (test code = 3097-3) 11 03-03 [facility] ClinicsEstimat Glomerular Filtration Rate 2019-11-23 20:22:00* Test Item Value Reference Range Interpretation Comments Estimat Glomerular Filtration Rate (test code = 739366378) > 60 >60 Ranges were taken from the National Kidney Disease Education Program and the [facility] literature.Reference ranges:60 or greater: Pmrojc59-57 ( for 3 consecutive months): Chronic kidney disease 15 or less: Kidney failureEast [facility] and ClinicsGlucose Hgsnk2838-54-29 20:22:00* Test Item Value Reference Range Interpretation Comments Glucose Level (test code = BED9680) 97 74-118 [facility] ClinicsCalcium Mgjri2066-66-14 20:22:00* Test Item Value Reference Range Interpretation Comments Calcium Level (test code = 03789-0) 8.8 8.4-10.2 [facility] Wwzwc9971-13-83 20:22:00* Test Item Value Reference Range Interpretation Comments Sodium Level (test code = 2951-2) 132 136-145 L [facility] ClinicsPotassium Qhuuc9361-36-02 20:22:00* Test Item Value Reference Range Interpretation Comments Potassium Level (test code = 2823-3) 3.9 3.5-5.1 [facility] ClinicsChloride Rejxa9957-24-58 20:22:00* Test Item Value Reference Range Interpretation Comments Chloride Level (test code = 2075-0) 100 98-107 [facility] ClinicsCarbon Dioxide Hjuyd6577-86-04 20:22:00* Test Item Value Reference Range Interpretation Comments Carbon Dioxide Level (test code = 2028-9) 28 -29 [facility] ClinicsAnion Dpz4272-52-85 20:22:00* Test Item Value Reference Range Interpretation Comments Anion Gap (test code = 08357-6) 7.9 8-16 L [facility] ClinicsBlood Urea Vjgbvjll1962-25-39 20:22:00* Test Item Value Reference Range Interpretation Comments Blood Urea Nitrogen (test code = 3094-0) 12 7- [facility] ClinicsCreatinine2020-03-16 20:22:00* Test Item Value Reference Range Interpretation Comments Creatinine (test code = 2160-0) 1.06 0.57-1.11 [facility] ClinicsBUN/Creatinine Pngei6136-77-01 20:22:00* Test Item Value Reference Range Interpretation Comments BUN/Creatinine Ratio (test code = 3097-3) 11 - [facility] ClinicsEstimat Glomerular Filtration Rate 2019-11-23 20:22:00* Test Item Value Reference Range Interpretation Comments Estimat Glomerular Filtration Rate (test code = 958538544) > 60 >60 Ranges were taken from the National Kidney Disease Education Program and the [facility] literature.Reference ranges:60 or greater: Mdeila93-87 ( for 3 consecutive months): Chronic kidney disease 15 or less: Kidney failureEast [facility] Hospital and ClinicsGlucose Mxhuq7139-18-21 20:22:00* Test Item Value Reference Range Interpretation Comments Glucose Level (test code = LIW8525) 97 74-118 [facility] ClinicsCalcium Jfpsd6369-91-83 20:22:00* Test Item Value Reference Range Interpretation Comments Calcium Level (test code = 31387-2) 8.8 8.4-10.2 [facility] ClinicsProthrombin Xxky5473-75-21 20:19:00* Test Item Value Reference Range Interpretation Comments Prothrombin Time (test code = 5902-2) 13.6 11.9-14.5 [facility] ClinicsProthromb Time International Ratio 2019-11-23 20:19:00* Test Item Value Reference Range Interpretation Comments Prothromb Time International Ratio (test code = 6301-6) 0.98 Oral Anticoagulant Therapy INR Values:1. Low Intensity Therapy 1.5 - 2.02 . Moderate Intensity Therapy 2.0 - 3.03. High Intensity Therapy(1) 2.5 - 3. 54. High Intensity Therapy(2) 3.0 - 4.05. Panic Value INR > 5.0 [facility] ClinicsActivated Partial Thromboplast Time 2019-11-23 20:19:00* Test Item Value Reference Range Interpretation Comments Activated Partial Thromboplast Time (test code = 79169-3) 27.9 23.8-35.5 [facility] ClinicsProthrombin Esxf6057-73-60 20:19:00* Test Item Value Reference Range Interpretation Comments Prothrombin Time (test code = 5902-2) 13.6 11.9-14.5 [facility] ClinicsProthromb Time International Ratio 2019-11-23 20:19:00* Test Item Value Reference Range Interpretation Comments Prothromb Time International Ratio (test code = 6301-6) 0.98 Oral Anticoagulant Therapy INR Values:1. Low Intensity Therapy 1.5 - 2.02 . Moderate Intensity Therapy 2.0 - 3.03. High Intensity Therapy(1) 2.5 - 3. 54. High Intensity Therapy(2) 3.0 - 4.05. Panic Value INR > 5.0 [facility] ClinicsActivated Partial Thromboplast Time 2019-11-23 20:19:00* Test Item Value Reference Range Interpretation Comments Activated Partial Thromboplast Time (test code = 46287-5) 27.9 23.8-35.5 [facility] ClinicsProthrombin Pjej5172-58-14 20:19:00* Test Item Value Reference Range Interpretation Comments Prothrombin Time (test code = 5902-2) 13.6 11.9-14.5 [facility] ClinicsProthromb Time International Ratio 2019-11-23 20:19:00* Test Item Value Reference Range Interpretation Comments Prothromb Time International Ratio (test code = 6301-6) 0.98 Oral Anticoagulant Therapy INR Values:1. Low Intensity Therapy 1.5 - 2.02 . Moderate Intensity Therapy 2.0 - 3.03. High Intensity Therapy(1) 2.5 - 3. 54. High Intensity Therapy(2) 3.0 - 4.05. Panic Value INR > 5.0 [facility] ClinicsActivated Partial Thromboplast Time 2019-11-23 20:19:00* Test Item Value Reference Range Interpretation Comments Activated Partial Thromboplast Time (test code = 02596-2) 27.9 23.8-35.5 [facility] ClinicsWhite Blood Ckeib3595-85-38 20:08:00* Test Item Value Reference Range Interpretation Comments White Blood Count (test code = 6690-2) 6.24 4.8-10.8 [facility] ClinicsRed Blood Zdfpv7449-30-98 20:08:00* Test Item Value Reference Range Interpretation Comments Red Blood Count (test code = 789-8) 3.43 3.6-5.1 L [facility] ClinicsHemoglobin2020-03-16 20:08:00* Test Item Value Reference Range Interpretation Comments Hemoglobin (test code = 37097-9) 10.3 12.0-16.0 L [facility] ClinicsHematocrit2020-03-16 20:08:00* Test Item Value Reference Range Interpretation Comments Hematocrit (test code = 4544-3) 31.4 34.2-44.1 L [facility] ClinicsMean Corpuscular Jfdfbi6280-92-88 20:08:00* Test Item Value Reference Range Interpretation Comments Mean Corpuscular Volume (test code = 787-2) 91.5 81-99 [facility] ClinicsMean Corpuscular Qbqimaqiit4226-18-41 20:08:00* Test Item Value Reference Range Interpretation Comments Mean Corpuscular Hemoglobin (test code = 785-6) 30.0 28-32 [facility] ClinicsMean Corpuscular Hemoglobin Concent 2019-11-23 20:08:00* Test Item Value Reference Range Interpretation Comments Mean Corpuscular Hemoglobin Concent (test code = 786-4) 32.8 31-35 [facility] ClinicsRed Cell Distribution Vvrtg2627-05-83 20:08:00* Test Item Value Reference Range Interpretation Comments Red Cell Distribution Width (test code = 38456-3) 13.6 11.7 -14.4 [facility] ClinicsPlatelet Jabvs3494-26-64 20:08:00* Test Item Value Reference Range Interpretation Comments Platelet Count (test code = 777-3) 196 140-360 [facility] ClinicsNeutrophils (%) (Auto)2019-11-23 20:08:00 * Test Item Value Reference Range Interpretation Comments Neutrophils (%) (Auto) (test code = 51620-8) 81.3 38.7-80.0 H [facility] ClinicsLymphocytes (%) (Auto)2019-11-23 20:08:00 * Test Item Value Reference Range Interpretation Comments Lymphocytes (%) (Auto) (test code = 736-9) 13.8 18.0-39.1 L [facility] ClinicsMonocytes (%) (Auto)2019-11-23 20:08:00* Test Item Value Reference Range Interpretation Comments Monocytes (%) (Auto) (test code = 5905-5) 4.2 4.4-11.3 L [facility] ClinicsEosinophils (%) (Auto)2019-11-23 20:08:00 * Test Item Value Reference Range Interpretation Comments Eosinophils (%) (Auto) (test code = 713-8) 0.2 0.0-6.0 [facility] ClinicsBasophils (%) (Auto)2019-11-23 20:08:00* Test Item Value Reference Range Interpretation Comments Basophils (%) (Auto) (test code = 706-2) 0.2 0.0-1.0 [facility] ClinicsIM GRANULOCYTES %2019-11-23 20:08:00* Test Item Value Reference Range Interpretation Comments IM GRANULOCYTES % (test code = IM GRANULOCYTES %) 0.3 0.0- 1.0 [facility] ClinicsNeutrophils # (Auto)2019-11-23 20:08:00* Test Item Value Reference Range Interpretation Comments Neutrophils # (Auto) (test code = 751-8) 5.1 2.1-6.9 [facility] ClinicsLymphocytes # (Auto)2019-11-23 20:08:00* Test Item Value Reference Range Interpretation Comments Lymphocytes # (Auto) (test code = 89508-1) 0.9 1.0-3.2 L [facility] ClinicsMonocytes # (Auto)2019-11-23 20:08:00* Test Item Value Reference Range Interpretation Comments Monocytes # (Auto) (test code = 742-7) 0.3 0.2-0.8 [facility] ClinicsEosinophils # (Auto)2019-11-23 20:08:00* Test Item Value Reference Range Interpretation Comments Eosinophils # (Auto) (test code = 711-2) 0.0 0.0-0.4 [facility] ClinicsBasophils # (Auto)2019-11-23 20:08:00* Test Item Value Reference Range Interpretation Comments Basophils # (Auto) (test code = 704-7) 0.0 0.0-0.1 [facility] ClinicsAbsolute Immature Granulocyte (auto 2019-11-23 20:08:00* Test Item Value Reference Range Interpretation Comments Absolute Immature Granulocyte (auto (dana t code = Absolute Immature Granulocyte (auto) 0.02 0-0.1 [facility] ClinicsWhite Blood Fcszi4890-15-44 20:08:00* Test Item Value Reference Range Interpretation Comments White Blood Count (test code = 6690-2) 6.24 4.8-10.8 [facility] ClinicsRed Blood Vgrul7197-37-15 20:08:00* Test Item Value Reference Range Interpretation Comments Red Blood Count (test code = 789-8) 3.43 3.6-5.1 L [facility] ClinicsHemoglobin2020-03-16 20:08:00* Test Item Value Reference Range Interpretation Comments Hemoglobin (test code = 23780-3) 10.3 12.0-16.0 L [facility] ClinicsHematocrit2020-03-16 20:08:00* Test Item Value Reference Range Interpretation Comments Hematocrit (test code = 4544-3) 31.4 34.2-44.1 L [facility] ClinicsMean Corpuscular Kwhscx1570-11-39 20:08:00* Test Item Value Reference Range Interpretation Comments Mean Corpuscular Volume (test code = 787-2) 91.5 81-99 [facility] ClinicsMean Corpuscular Tbbbprwriy7022-52-53 20:08:00* Test Item Value Reference Range Interpretation Comments Mean Corpuscular Hemoglobin (test code = 785-6) 30.0 28-32 [facility] ClinicsMean Corpuscular Hemoglobin Concent 2019-11-23 20:08:00* Test Item Value Reference Range Interpretation Comments Mean Corpuscular Hemoglobin Concent (test code = 786-4) 32.8 31-35 [facility] ClinicsRed Cell Distribution Awcsr0462-08-30 20:08:00* Test Item Value Reference Range Interpretation Comments Red Cell Distribution Width (test code = 02746-9) 13.6 11.7 -14.4 [facility] ClinicsPlatelet Lhymc6960-74-92 20:08:00* Test Item Value Reference Range Interpretation Comments Platelet Count (test code = 777-3) 196 140-360 [facility] ClinicsNeutrophils (%) (Auto)2019-11-23 20:08:00 * Test Item Value Reference Range Interpretation Comments Neutrophils (%) (Auto) (test code = 01477-2) 81.3 38.7-80.0 H [facility] ClinicsLymphocytes (%) (Auto)2019-11-23 20:08:00 * Test Item Value Reference Range Interpretation Comments Lymphocytes (%) (Auto) (test code = 736-9) 13.8 18.0-39.1 L [facility] ClinicsMonocytes (%) (Auto)2019-11-23 20:08:00* Test Item Value Reference Range Interpretation Comments Monocytes (%) (Auto) (test code = 5905-5) 4.2 4.4-11.3 L [facility] ClinicsEosinophils (%) (Auto)2019-11-23 20:08:00 * Test Item Value Reference Range Interpretation Comments Eosinophils (%) (Auto) (test code = 713-8) 0.2 0.0-6.0 [facility] ClinicsBasophils (%) (Auto)2019-11-23 20:08:00* Test Item Value Reference Range Interpretation Comments Basophils (%) (Auto) (test code = 706-2) 0.2 0.0-1.0 [facility] ClinicsIM GRANULOCYTES %2019-11-23 20:08:00* Test Item Value Reference Range Interpretation Comments IM GRANULOCYTES % (test code = IM GRANULOCYTES %) 0.3 0.0- 1.0 [facility] ClinicsNeutrophils # (Auto)2019-11-23 20:08:00* Test Item Value Reference Range Interpretation Comments Neutrophils # (Auto) (test code = 751-8) 5.1 2.1-6.9 [facility] ClinicsLymphocytes # (Auto)2019-11-23 20:08:00* Test Item Value Reference Range Interpretation Comments Lymphocytes # (Auto) (test code = 85716-6) 0.9 1.0-3.2 L [facility]icsMonocytes # (Auto)2019-11-23 20:08:00* Test Item Value Reference Range Interpretation Comments Monocytes # (Auto) (test code = 742-7) 0.3 0.2-0.8 [facility]icsEosinophils # (Auto)2019-11-23 20:08:00* Test Item Value Reference Range Interpretation Comments Eosinophils # (Auto) (test code = 711-2) 0.0 0.0-0.4 [facility] ClinicsBasophils # (Auto)2019-11-23 20:08:00* Test Item Value Reference Range Interpretation Comments Basophils # (Auto) (test code = 704-7) 0.0 0.0-0.1 [facility] ClinicsAbsolute Immature Granulocyte (auto 2019-11-23 20:08:00* Test Item Value Reference Range Interpretation Comments Absolute Immature Granulocyte (auto (dana t code = Absolute Immature Granulocyte (auto) 0.02 0-0.1 [facility] ClinicsProthrombin time (PT) in platelet poor plasma by coagulation limam8183-21-19 19:45:00* Test Item Value Reference Range Interpretation Comments Prothrombin Time (test code = 5902-2) 13.6 11.9-14.5 [facility] ClinicsINR in Platelet poor plasma by Coagulation lazvx8142-04-29 19:45:00* Test Item Value Reference Range Interpretation Comments Prothromb Time International Ratio (test code = 6301-6) 0.98 Oral Anticoagulant Therapy INR Values:1. Low Intensity Therapy 1.5 - 2.02 . Moderate Intensity Therapy 2.0 - 3.03. High Intensity Therapy(1) 2.5 - 3. 54. High Intensity Therapy(2) 3.0 - 4.05. Panic Value INR > 5.0 [facility] ClinicsActivated partial thromboplastin time (aPTT) in platelet poor plasma by coagulation xspet3645-27-10 19:45:00* Test Item Value Reference Range Interpretation Comments Activated Partial Thromboplast Time (test code = 69980-8) 27.9 23.8-35.5 [facility] Brookerum or plasma creatine kinase measurement (enzymatic activity/volume)2019-11-23 19:45:00* Test Item Value Reference Range Interpretation Comments Creatine Kinase (test code = 2157-6) 397 29-168 [facility] Brookerum or plasma creatine kinase MB measurement (mass/volume)2019-11-23 19:45:00* Test Item Value Reference Range Interpretation Comments Creatine Kinase MB (test code = 80983-4) 4.20 0-5.0 [facility] Brookerum or plasma creatine kinase measurement (enzymatic activity/volume)2019-11-23 19:45:00* Test Item Value Reference Range Interpretation Comments Creatine Kinase (test code = 2157-6) 397 29-168 [facility] Brookerum or plasma creatine kinase MB measurement (mass/volume)2019-11-23 19:45:00* Test Item Value Reference Range Interpretation Comments Creatine Kinase MB (test code = 23615-0) 4.20 0-5.0 [facility] ClinicsCHEST SINGLE (PORTABLE)2019-11-23 19:00:00 [facility] [address] [address] Patient Name: CHRISTINE OTTO MR #: [id number] : 1990 Age/Sex: 29/F Req #: [id number] Adm Physician: Ordered by: CHI CARRASCO NP Report #: [id number] Location: ER Room/Bed: Procedure: [id number] DX/CHEST SINGLE (PORTABLE) Exam Date: 11/23/19 Exam [...] IONA on 11/23/191900 COPY TO: CHI CARRASCO EDUCATION REP Blood Atvsmap9112-47-83 09:05:00* Test Item Value Reference Range Interpretation Comments Blood Culture (test code = 49243626) NO GROWTH AFTER 5 DAYS, FINAL REPORT [facility] ClinicsBlood Nfbtbaa9938-95-06 09:05:00* Test Item Value Reference Range Interpretation Comments Blood Culture (test code = 35809270) NO GROWTH AFTER 5 DAYS, FINAL REPORT [facility] ClinicsBlood Ybzjpti5162-49-31 09:05:00* Test Item Value Reference Range Interpretation Comments Blood Culture (test code = 43600432) NO GROWTH AFTER 48 HOURS [facility] ClinicsOvalocytes2019-11-14 12:40:00* Test Item Value Reference Range Interpretation Comments Ovalocytes (test code = 774-0) FEW [facility] ClinicsOvalocytes2019-11-14 12:40:00* Test Item Value Reference Range Interpretation Comments Ovalocytes (test code = 774-0) FEW [facility] ClinicsOvalocytes2019-11-14 12:40:00* Test Item Value Reference Range Interpretation Comments Ovalocytes (test code = 774-0) FEW [facility] ClinicsOvalocytes2019-11-14 12:40:00* Test Item Value Reference Range Interpretation Comments Ovalocytes (test code = 774-0) FEW [facility] ClinicsDifferential Total Cells Counted 2019-07-23 12:28:00* Test Item Value Reference Range Interpretation Comments Differential Total Cells Counted (test code = Differbrigid tial Total Cells Counted) 100 [facility]icsNeutrophils % (Manual)2019-07-23 12:28:00 * Test Item Value Reference Range Interpretation Comments Neutrophils % (Manual) (test code = 36544-5) 74 40-74 [facility] ClinicsLymphocytes % (Manual)2019-07-23 12:28:00 * Test Item Value Reference Range Interpretation Comments Lymphocytes % (Manual) (test code = 737-7) 19 19-48 [facility]icsMonocytes % (Manual)2019-07-23 12:28:00* Test Item Value Reference Range Interpretation Comments Monocytes % (Manual) (test code = 744-3) 7 3.4-9.0 [facility] ClinicsPlatelet Fubunpth8012-71-27 12:28:00* Test Item Value Reference Range Interpretation Comments Platelet Estimate (test code = 22991-8) ADEQUATE [facility] ClinicsPlatelet Morphology Czakwiz4922-81-62 12:28:00* Test Item Value Reference Range Interpretation Comments Platelet Morphology Comment (test code = 69906-9) NORMAL [facility] ClinicsPoikilocytosis2019-11-14 12:28:00* Test Item Value Reference Range Interpretation Comments Poikilocytosis (test code = 779-9) SLIGHT [facility] ClinicsAnisocytosis2019-11-14 12:28:00* Test Item Value Reference Range Interpretation Comments Anisocytosis (test code = 702-1) SLIGHT [facility] ClinicsRed Cell Morphology Lxtvipe5231-59-83 12:28:00* Test Item Value Reference Range Interpretation Comments Red Cell Morphology Comment (test code = 6742-1) NORMAL [facility] ClinicsDifferential Total Cells Counted 2019-07-23 12:28:00* Test Item Value Reference Range Interpretation Comments Differential Total Cells Counted (test code = Differbrigid tial Total Cells Counted) 100 [facility] ClinicsNeutrophils % (Manual)2019-07-23 12:28:00 * Test Item Value Reference Range Interpretation Comments Neutrophils % (Manual) (test code = 65140-7) 74 40-74 [facility] ClinicsLymphocytes % (Manual)2019-07-23 12:28:00 * Test Item Value Reference Range Interpretation Comments Lymphocytes % (Manual) (test code = 737-7) 19 19-48 [facility]icsMonocytes % (Manual)2019-07-23 12:28:00* Test Item Value Reference Range Interpretation Comments Monocytes % (Manual) (test code = 744-3) 7 3.4-9.0 [facility] ClinicsPlatelet Embhyetk9533-79-92 12:28:00* Test Item Value Reference Range Interpretation Comments Platelet Estimate (test code = 90356-8) ADEQUATE [facility] ClinicsPlatelet Morphology Boffbrt6981-04-12 12:28:00* Test Item Value Reference Range Interpretation Comments Platelet Morphology Comment (test code = 60123-7) NORMAL [facility] ClinicsPoikilocytosis2019-11-14 12:28:00* Test Item Value Reference Range Interpretation Comments Poikilocytosis (test code = 779-9) SLIGHT [facility] ClinicsAnisocytosis2019-11-14 12:28:00* Test Item Value Reference Range Interpretation Comments Anisocytosis (test code = 702-1) SLIGHT [facility] ClinicsRed Cell Morphology Nvxpnrj0641-01-01 12:28:00* Test Item Value Reference Range Interpretation Comments Red Cell Morphology Comment (test code = 6742-1) NORMAL [facility] ClinicsDifferential Total Cells Counted 2019-07-23 12:28:00* Test Item Value Reference Range Interpretation Comments Differential Total Cells Counted (test code = Differen tial Total Cells Counted) 100 [facility]icsNeutrophils % (Manual)2019-07-23 12:28:00 * Test Item Value Reference Range Interpretation Comments Neutrophils % (Manual) (test code = 39714-9) 74 40-74 [facility] ClinicsLymphocytes % (Manual)2019-07-23 12:28:00 * Test Item Value Reference Range Interpretation Comments Lymphocytes % (Manual) (test code = 737-7) 19 19-48 [facility]icsMonocytes % (Manual)2019-07-23 12:28:00* Test Item Value Reference Range Interpretation Comments Monocytes % (Manual) (test code = 744-3) 7 3.4-9.0 [facility] ClinicsPlatelet Enupnelz5085-76-85 12:28:00* Test Item Value Reference Range Interpretation Comments Platelet Estimate (test code = 03532-6) ADEQUATE [facility] ClinicsPlatelet Morphology Afffsxg9694-06-58 12:28:00* Test Item Value Reference Range Interpretation Comments Platelet Morphology Comment (test code = 61089-8) NORMAL [facility] ClinicsPoikilocytosis2019-11-14 12:28:00* Test Item Value Reference Range Interpretation Comments Poikilocytosis (test code = 779-9) SLIGHT [facility] ClinicsAnisocytosis2019-11-14 12:28:00* Test Item Value Reference Range Interpretation Comments Anisocytosis (test code = 702-1) SLIGHT [facility] ClinicsRed Cell Morphology Hahmstn1535-94-97 12:28:00* Test Item Value Reference Range Interpretation Comments Red Cell Morphology Comment (test code = 6742-1) NORMAL [facility] ClinicsPoikilocytosis2019-11-14 12:28:00* Test Item Value Reference Range Interpretation Comments Poikilocytosis (test code = 779-9) SLIGHT [facility] ClinicsUrine BSR3316-45-79 11:33:00* Test Item Value Reference Range Interpretation Comments Urine WBC (test code = 5821-4) 6-10 0-5 H [facility] ClinicsUrine GPM9508-59-42 11:33:00* Test Item Value Reference Range Interpretation Comments Urine RBC (test code = 97998-6) 0-5 0-5 [facility] ClinicsUrine Rihfebib7821-49-70 11:33:00* Test Item Value Reference Range Interpretation Comments Urine Bacteria (test code = 69028-3) MANY NONE H [facility] ClinicsUrine Epithelial Hmasf7535-38-54 11:33:00 * Test Item Value Reference Range Interpretation Comments Urine Epithelial Cells (test code = 68885-5) MODERATE NONE [facility]icsU[facility] Tzxsl3532-45-51 11:29:00* Test Item Value Reference Range Interpretation Comments Urine Color (test code = 5778-6) YELLOW YELLOW [facility]icsUrine Mgfuprl0005-75-16 11:29:00* Test Item Value Reference Range Interpretation Comments Urine Clarity (test code = 51714-9) SL CLOUDY CLEAR [facility]icsUrine Specific Xlsohcz9346-34-30 11:29:00 * Test Item Value Reference Range Interpretation Comments Urine Specific [place] (test code = 5811-5) >=1.030 1.010-1.02 5 [facility]icsUrine jA5998-25-52 11:29:00* Test Item Value Reference Range Interpretation Comments Urine pH (test code = 55587-4) 6 5-7 [facility]icsUrine Leukocyte Ylleezhe6229-74-41 11:29:00* Test Item Value Reference Range Interpretation Comments Urine Leukocyte Esterase (test code = 30573-0) NEGATIVE NEGATIV E [facility]icsUrine Nlvvdcm0833-02-47 11:29:00* Test Item Value Reference Range Interpretation Comments Urine Nitrite (test code = 46682-0) NEGATIVE NEGATIVE [facility]icsUrine Upsdulb7234-93-08 11:29:00* Test Item Value Reference Range Interpretation Comments Urine Protein (test code = 40332-2) NEGATIVE NEGATIVE [facility]icsUrine Glucose (UA)2019-07-23 11:29:00* Test Item Value Reference Range Interpretation Comments Urine Glucose (UA) (test code = 91004-3) NEGATIVE NEGATIVE [facility]icsUrine Crzfexh3031-02-77 11:29:00* Test Item Value Reference Range Interpretation Comments Urine Ketones (test code = 54546-8) NEGATIVE NEGATIVE [facility]icsUrine Xgkoxjzymmwi7863-44-46 11:29:00* Test Item Value Reference Range Interpretation Comments Urine Urobilinogen (test code = 12340-2) 1 0.2-1 [facility]icsUrine Xpkrjoaqq7608-16-22 11:29:00* Test Item Value Reference Range Interpretation Comments Urine Bilirubin (test code = 1977-8) NEGATIVE NEGATIVE [facility]icsUrine Hmdih1289-24-53 11:29:00* Test Item Value Reference Range Interpretation Comments Urine Blood (test code = 47307-3) NEGATIVE NEGATIVE [facility] ClinicsHemoglobin A1c Gcyomqs2211-22-75 11:28:00 * Test Item Value Reference Range Interpretation Comments Hemoglobin A1c Percent (test code = Hemoglobin A1c Percent) 5.1 4.0-7.0 [facility] ClinicsHemoglobin A1c Twdrypy0629-17-00 11:28:00 * Test Item Value Reference Range Interpretation Comments Hemoglobin A1c Percent (test code = Hemoglobin A1c Percent) 5.1 4.0-7.0 [facility] ClinicsHemoglobin A1c Afavxoy5934-95-78 11:28:00 * Test Item Value Reference Range Interpretation Comments Hemoglobin A1c Percent (test code = Hemoglobin A1c Percent) 5.1 4.0-7.0 [facility] ClinicsTriglycerides Zynyh9857-10-74 08:29:00* Test Item Value Reference Range Interpretation Comments Triglycerides Level (test code = 2571-8) 118 0-149 [facility] ClinicsCholesterol Nqjus2059-21-72 08:29:00* Test Item Value Reference Range Interpretation Comments Cholesterol Level (test code = 2093-3) 102 0-199 Less than 200 mg/dL Low Vjqd751 - 239 mg/dL Borderline Rarf519 m g/dl and greater High Risk [facility] ClinicsLDL Thuzzukktwp3679-85-93 08:29:00* Test Item Value Reference Range Interpretation Comments LDL Cholesterol (test code = 2089-1) 56 60-130 L [facility] Pzmhxyfabcx9209-61-98 08:29:00* Test Item Value Reference Range Interpretation Comments HDL Cholesterol (test code = 2085-9) 22 40-60 L [facility] ClinicsCholesterol/HDL Xkgiv9677-26-08 08:29:00 * Test Item Value Reference Range Interpretation Comments Cholesterol/HDL Ratio (test code = 9830-1) 4.6 3.0-3.6 H [facility] ClinicsTriglycerides Cazlp7012-02-76 08:29:00* Test Item Value Reference Range Interpretation Comments Triglycerides Level (test code = 2571-8) 118 0-149 [facility] ClinicsCholesterol Scyrs7807-68-97 08:29:00* Test Item Value Reference Range Interpretation Comments Cholesterol Level (test code = 2093-3) 102 0-199 Less than 200 mg/dL Low Hvdq649 - 239 mg/dL Borderline Jrys350 m g/dl and greater High Risk [facility] ClinicsLDL Lxhdbxlfztu0250-30-37 08:29:00* Test Item Value Reference Range Interpretation Comments LDL Cholesterol (test code = 2089-1) 56 60-130 L [facility] Jmgrsgwtewb9127-56-62 08:29:00* Test Item Value Reference Range Interpretation Comments HDL Cholesterol (test code = 2085-9) 22 40-60 L [facility] ClinicsCholesterol/HDL Simmk8809-46-98 08:29:00 * Test Item Value Reference Range Interpretation Comments Cholesterol/HDL Ratio (test code = 9830-1) 4.6 3.0-3.6 H [facility] ClinicsTriglycerides Uoxxq8440-73-11 08:29:00* Test Item Value Reference Range Interpretation Comments Triglycerides Level (test code = 2571-8) 118 0-149 [facility] ClinicsCholesterol Lmfdp5198-65-40 08:29:00* Test Item Value Reference Range Interpretation Comments Cholesterol Level (test code = 2093-3) 102 0-199 Less than 200 mg/dL Low Dnlo069 - 239 mg/dL Borderline Ufvh313 m g/dl and greater High Risk [facility] ClinicsLDL Kfpkxxhncdd9748-20-52 08:29:00* Test Item Value Reference Range Interpretation Comments LDL Cholesterol (test code = 2089-1) 56 60-130 L [facility] ClinicsHDL Zzibhpfkaio9448-06-41 08:29:00* Test Item Value Reference Range Interpretation Comments HDL Cholesterol (test code = 2085-9) 22 40-60 L [facility] ClinicsCholesterol/HDL Ivatd4655-25-38 08:29:00 * Test Item Value Reference Range Interpretation Comments Cholesterol/HDL Ratio (test code = 9830-1) 4.6 3.0-3.6 H [facility] Brookodium Nmajy9239-30-88 06:07:00* Test Item Value Reference Range Interpretation Comments Sodium Level (test code = 2951-2) 135 136-145 L [facility] ClinicsPotassium Wsnyo0710-12-48 06:07:00* Test Item Value Reference Range Interpretation Comments Potassium Level (test code = 2823-3) 3.6 3.5-5.1 [facility] ClinicsChloride Irpcj0518-61-84 06:07:00* Test Item Value Reference Range Interpretation Comments Chloride Level (test code = 2075-0) 104 98-107 [facility] ClinicsCarbon Dioxide Ueuge4775-42-10 06:07:00* Test Item Value Reference Range Interpretation Comments Carbon Dioxide Level (test code = 2028-9) 25 22-29 [facility] ClinicsAnion Hnr7195-52-88 06:07:00* Test Item Value Reference Range Interpretation Comments Anion Gap (test code = 24948-7) 9.6 8-16 [facility] ClinicsBlood Urea Awyvgibf4059-38-50 06:07:00* Test Item Value Reference Range Interpretation Comments Blood Urea Nitrogen (test code = 3094-0) 11 7-26 [facility] ClinicsCreatinine2019-11-14 06:07:00* Test Item Value Reference Range Interpretation Comments Creatinine (test code = 2160-0) 1.01 0.57-1.11 [facility] ClinicsBUN/Creatinine Csvlo6388-85-96 06:07:00* Test Item Value Reference Range Interpretation Comments BUN/Creatinine Ratio (test code = 3097-3) 11 03-03 [facility] ClinicsEstimat Glomerular Filtration Rate 2019-07-23 06:07:00* Test Item Value Reference Range Interpretation Comments Estimat Glomerular Filtration Rate (test code = 657659977) > 60 >60 Ranges were taken from the National Kidney Disease Education Program and the [facility] [employer] literature.Reference ranges:60 or greater: Fldzkb12-19 ( for 3 consecutive months): Chronic kidney disease 15 or less: Kidney failureEast [facility] Hospital and ClinicsGlucose Rklmt5638-69-15 06:07:00* Test Item Value Reference Range Interpretation Comments Glucose Level (test code = FBH3690) 82 74-118 [facility] ClinicsCalcium Zvycq6275-29-83 06:07:00* Test Item Value Reference Range Interpretation Comments Calcium Level (test code = 88839-4) 8.8 8.4-10.2 [facility] ClinicsTotal Rkdwrteom6314-31-22 06:07:00* Test Item Value Reference Range Interpretation Comments Total Bilirubin (test code = 1975-2) 0.7 0.2-1.2 [facility] ClinicsAspartate Amino Transf (AST/SGOT) 2019-07-23 06:07:00* Test Item Value Reference Range Interpretation Comments Aspartate Amino Transf (AST/SGOT) (test code = Aspartate Amino Transf (AST/SGOT)) 20 5-34 [facility] ClinicsAlanine Aminotransferase (ALT/SGPT) 2019-07-23 06:07:00* Test Item Value Reference Range Interpretation Comments Alanine Aminotransferase (ALT/SGPT) (test code = 1742-6) 11 0-55 [facility] ClinicsTotal Vxzzfia1632-57-15 06:07:00* Test Item Value Reference Range Interpretation Comments Total Protein (test code = 2885-2) 8.1 6.5-8.1 [facility] ClinicsAlbumin2019-11-14 06:07:00* Test Item Value Reference Range Interpretation Comments Albumin (test code = 1751-7) 3.0 3.5-5.0 L [facility] ClinicsGlobulin2019-11-14 06:07:00* Test Item Value Reference Range Interpretation Comments Globulin (test code = 99427-3) 5.1 2.3-3.5 H [facility] ClinicsAlbumin/Globulin Yooqe4431-79-22 06:07:00 * Test Item Value Reference Range Interpretation Comments Albumin/Globulin Ratio (test code = 1759-0) 0.6 0.8-2.0 L [facility] ClinicsAlkaline Cogvdajnyfo0892-37-35 06:07:00* Test Item Value Reference Range Interpretation Comments Alkaline Phosphatase (test code = 6768-6) 16 40-150 L [facility] ClinicsTotal Wjnabeaan8149-69-90 06:07:00* Test Item Value Reference Range Interpretation Comments Total Bilirubin (test code = 1975-2) 0.7 0.2-1.2 [facility] ClinicsAspartate Amino Transf (AST/SGOT) 2019-07-23 06:07:00* Test Item Value Reference Range Interpretation Comments Aspartate Amino Transf (AST/SGOT) (test code = Aspartate Amino Transf (AST/SGOT)) 20 5-34 [facility] ClinicsAlanine Aminotransferase (ALT/SGPT) 2019-07-23 06:07:00* Test Item Value Reference Range Interpretation Comments Alanine Aminotransferase (ALT/SGPT) (test code = 1742-6) 11 0-55 [facility]icsTolifepoint [facility] Pqjljiq0867-81-09 06:07:00* Test Item Value Reference Range Interpretation Comments Total Protein (test code = 2885-2) 8.1 6.5-8.1 [facility] ClinicsAlbumin2019-11-14 06:07:00* Test Item Value Reference Range Interpretation Comments Albumin (test code = 1751-7) 3.0 3.5-5.0 L [facility] ClinicsGlobulin2019-11-14 06:07:00* Test Item Value Reference Range Interpretation Comments Globulin (test code = 08348-3) 5.1 2.3-3.5 H [facility] ClinicsAlbumin/Globulin Pqozn0347-47-88 06:07:00 * Test Item Value Reference Range Interpretation Comments Albumin/Globulin Ratio (test code = 1759-0) 0.6 0.8-2.0 L [facility] ClinicsAlkaline Moyrooxslgz6402-82-55 06:07:00* Test Item Value Reference Range Interpretation Comments Alkaline Phosphatase (test code = 6768-6) 16 40-150 L [facility] ClinicsTotal Nmikaokys3755-57-10 06:07:00* Test Item Value Reference Range Interpretation Comments Total Bilirubin (test code = 1975-2) 0.7 0.2-1.2 [facility] ClinicsAspartate Amino Transf (AST/SGOT) 2019-07-23 06:07:00* Test Item Value Reference Range Interpretation Comments Aspartate Amino Transf (AST/SGOT) (test code = Aspartate Amino Transf (AST/SGOT)) 20 5-34 [facility] ClinicsAlanine Aminotransferase (ALT/SGPT) 2019-07-23 06:07:00* Test Item Value Reference Range Interpretation Comments Alanine Aminotransferase (ALT/SGPT) (test code = 1742-6) 11 0-55 [facility] ClinicsTotal Jtlcofx5452-84-06 06:07:00* Test Item Value Reference Range Interpretation Comments Total Protein (test code = 2885-2) 8.1 6.5-8.1 [facility] ClinicsAlbumin2019-11-14 06:07:00* Test Item Value Reference Range Interpretation Comments Albumin (test code = 1751-7) 3.0 3.5-5.0 L [facility] ClinicsGlobulin2019-11-14 06:07:00* Test Item Value Reference Range Interpretation Comments Globulin (test code = 08870-5) 5.1 2.3-3.5 H [facility] ClinicsAlbumin/Globulin Jpieq7582-61-58 06:07:00 * Test Item Value Reference Range Interpretation Comments Albumin/Globulin Ratio (test code = 1759-0) 0.6 0.8-2.0 L [facility] ClinicsAlkaline Xyqfayqajdj1577-00-57 06:07:00* Test Item Value Reference Range Interpretation Comments Alkaline Phosphatase (test code = 6768-6) 16 40-150 L [facility] ClinicsWhite Blood Zpzwq3760-21-30 05:39:00* Test Item Value Reference Range Interpretation Comments White Blood Count (test code = 6690-2) 3.41 4.8-10.8 L [facility] ClinicsRed Blood Qzpps6186-06-91 05:39:00* Test Item Value Reference Range Interpretation Comments Red Blood Count (test code = 789-8) 3.30 3.6-5.1 L [facility] ClinicsHemoglobin2019-11-14 05:39:00* Test Item Value Reference Range Interpretation Comments Hemoglobin (test code = 15071-0) 10.0 12.0-16.0 L [facility] ClinicsHematocrit2019-11-14 05:39:00* Test Item Value Reference Range Interpretation Comments Hematocrit (test code = 4544-3) 30.6 34.2-44.1 L [facility] ClinicsMean Corpuscular Usdzko1396-54-57 05:39:00* Test Item Value Reference Range Interpretation Comments Mean Corpuscular Volume (test code = 787-2) 92.7 81-99 [facility] ClinicsMean Corpuscular Xgawtjhrzl1181-10-79 05:39:00* Test Item Value Reference Range Interpretation Comments Mean Corpuscular Hemoglobin (test code = 785-6) 30.3 28-32 [facility] ClinicsMean Corpuscular Hemoglobin Concent 2019-07-23 05:39:00* Test Item Value Reference Range Interpretation Comments Mean Corpuscular Hemoglobin Concent (test code = 786-4) 32.7 31-35 [facility] ClinicsRed Cell Distribution Nwrbn7730-35-23 05:39:00* Test Item Value Reference Range Interpretation Comments Red Cell Distribution Width (test code = 64780-1) 13.4 11.7 -14.4 [facility] ClinicsPlatelet Lkekj4147-25-21 05:39:00* Test Item Value Reference Range Interpretation Comments Platelet Count (test code = 777-3) 153 140-360 [facility] ClinicsNeutrophils (%) (Auto)2019-07-23 05:39:00 * Test Item Value Reference Range Interpretation Comments Neutrophils (%) (Auto) (test code = 59810-7) 50.4 38.7-80.0 [facility] ClinicsLymphocytes (%) (Auto)2019-07-23 05:39:00 * Test Item Value Reference Range Interpretation Comments Lymphocytes (%) (Auto) (test code = 736-9) 39.0 18.0-39.1 [facility] ClinicsMonocytes (%) (Auto)2019-07-23 05:39:00* Test Item Value Reference Range Interpretation Comments Monocytes (%) (Auto) (test code = 5905-5) 10.3 4.4-11.3 [facility] ClinicsEosinophils (%) (Auto)2019-07-23 05:39:00 * Test Item Value Reference Range Interpretation Comments Eosinophils (%) (Auto) (test code = 713-8) 0.0 0.0-6.0 [facility] ClinicsBasophils (%) (Auto)2019-07-23 05:39:00* Test Item Value Reference Range Interpretation Comments Basophils (%) (Auto) (test code = 706-2) 0.3 0.0-1.0 [facility] ClinicsIM GRANULOCYTES %2019-07-23 05:39:00* Test Item Value Reference Range Interpretation Comments IM GRANULOCYTES % (test code = IM GRANULOCYTES %) 0.0 0.0- 1.0 [facility] ClinicsNeutrophils # (Auto)2019-07-23 05:39:00* Test Item Value Reference Range Interpretation Comments Neutrophils # (Auto) (test code = 751-8) 1.7 2.1-6.9 L [facility] ClinicsLymphocytes # (Auto)2019-07-23 05:39:00* Test Item Value Reference Range Interpretation Comments Lymphocytes # (Auto) (test code = 75597-6) 1.3 1.0-3.2 [facility] ClinicsMonocytes # (Auto)2019-07-23 05:39:00* Test Item Value Reference Range Interpretation Comments Monocytes # (Auto) (test code = 742-7) 0.4 0.2-0.8 [facility] ClinicsEosinophils # (Auto)2019-07-23 05:39:00* Test Item Value Reference Range Interpretation Comments Eosinophils # (Auto) (test code = 711-2) 0.0 0.0-0.4 [facility] ClinicsBasophils # (Auto)2019-07-23 05:39:00* Test Item Value Reference Range Interpretation Comments Basophils # (Auto) (test code = 704-7) 0.0 0.0-0.1 [facility] ClinicsAbsolute Immature Granulocyte (auto 2019-07-23 05:39:00* Test Item Value Reference Range Interpretation Comments Absolute Immature Granulocyte (auto (dana t code = Absolute Immature Granulocyte (auto) 0 0-0.1 [facility] ClinicsBlood poikilocytosis detection by light oaqctiesms9666-56-01 04:25:00* Test Item Value Reference Range Interpretation Comments Poikilocytosis (test code = 779-9) SLIGHT [facility] ClinicsBlood ovalocytes detection by light nvlxxerphs5925-53-25 04:25:00* Test Item Value Reference Range Interpretation Comments Ovalocytes (test code = 774-0) FEW [facility]icsBlfederal [facility] [place] poikilocytosis detection by light cbjbtyxluk3146-61-51 04:25:00* Test Item Value Reference Range Interpretation Comments Poikilocytosis (test code = 779-9) SLIGHT [facility] ClinicsBlood ovalocytes detection by light gjxldmoaxi2210-63-77 04:25:00* Test Item Value Reference Range Interpretation Comments Ovalocytes (test code = 774-0) FEW [facility] ClinicsProthrombin Efkp0244-66-15 11:30:00* Test Item Value Reference Range Interpretation Comments Prothrombin Time (test code = 5902-2) 13.9 11.9-14.5 [facility] ClinicsProthromb Time International Ratio 2019-07-22 11:30:00* Test Item Value Reference Range Interpretation Comments Prothromb Time International Ratio (test code = 6301-6) 1.02 Oral Anticoagulant Therapy INR Values:1. Low Intensity Therapy 1.5 - 2.02 . Moderate Intensity Therapy 2.0 - 3.03. High Intensity Therapy(1) 2.5 - 3. 54. High Intensity Therapy(2) 3.0 - 4.05. Panic Value INR > 5.0 [facility] ClinicsActivated Partial Thromboplast Time 2019-07-22 11:30:00* Test Item Value Reference Range Interpretation Comments Activated Partial Thromboplast Time (test code = 09446-0) 28.9 23.8-35.5 [facility] ClinicsCT ABDOMEN/PELVIS Y8549-30-11 11:14:00 [facility] [address] [address] Patient Name: CHRISTINE OTTO MR #: [id number] : [birth year] Age/Sex: 28/F Req #: [id number] Adm Physician: Ordered by: JOSE MANUEL COBURN MD Report #: [id number] Location: ER Room/Bed: Procedure: [id number] CT/ CT ABDOMEN/PELVIS W Exam Date: 07/22/19 [...] COPY TO: JOSE MANUEL COBURN MD US QWQKGMGSSTSU0196-75-35 10:26:00 [address] [address] Patient Name: CHRISTINE OTTO MR #: [id number] : 1990 Age/Sex: 28/F Req #: [id number] Adm Physician: Ordered by: JOSE MANUEL COBURN MD Report #: [id number] Location: ER Room/Bed: Procedure: [id number] US/ US TRANSVAGINAL Exam Date: 07/22/19 Exam [...] JOSE MANUEL COBURN MD US PELVIC DOPPLER SPG3096-22-67 10:26:00 [address] [address] Patient Name: CHRISTINE OTTO MR #: [id number] : 1990 Age/Sex: 28/F Req #: [id number] [facility] Physician: Ordered by: JOSE MANUEL COBURN MD Report #: [id number] Location: ER Room/Bed: Procedure: [id number] US/ US PELVIC DOPPLER LTD Exam Date: [...] MANUEL COBURN MD US PELVIS COMPLETE NON CB1955-39-54 10:26:00 [address] [address] Patient Name: CHRISTINE OTTO MR #: [id number] : 1990 Age/Sex: 28/F Req #: [id number] Adm Physician: Ordered by: JOSE MANUEL COBURN MD Report #: [id number] Location: ER Room/Bed: Procedure: [id number] US/ US PELVIS COMPLETE NON OB Exam [...] Comments Basophils % (Manual) (test code = 61742-4) 1 0-1.5 [facility]2019-11-13 10:04:00* Test Item Value Reference Range Interpretation Comments Stomatocytes (test code = 68392-8) SLIGHT [facility] ClinicsBasophils % (Manual)2019-07-22 10:04:00* Test Item Value Reference Range Interpretation Comments Basophils % (Manual) (test code = 20980-1) 1 0-1.5 [facility] 10:04:00* Test Item Value Reference Range Interpretation Comments Stomatocytes (test code = 07742-6) SLIGHT [facility] ClinicsBasophils % (Manual)2019-07-22 10:04:00* Test Item Value Reference Range Interpretation Comments Basophils % (Manual) (test code = 90457-4) 1 0-1.5 [facility]2019-11-13 10:04:00* Test Item Value Reference Range Interpretation Comments Stomatocytes (test code = 89935-1) SLIGHT [facility] ClinicsBasophils % (Manual)2019-07-22 10:04:00* Test Item Value Reference Range Interpretation Comments Basophils % (Manual) (test code = 36056-1) 1 0-1.5 [facility] 10:04:00* Test Item Value Reference Range Interpretation Comments Stomatocytes (test code = 12866-6) SLIGHT [facility] ClinicsUrine Rkug6558-65-07 08:41:00* Test Item Value Reference Range Interpretation Comments Urine Test (test code = 2106-3) NEGATIVE NEGATIVE [facility] ClinicsUrine Rzzn4237-94-39 08:41:00* Test Item Value Reference Range Interpretation Comments Urine Test (test code = 2106-3) NEGATIVE NEGATIVE [facility] ClinicsUrine Cxay6886-23-39 08:41:00* Test Item Value Reference Range Interpretation Comments Urine Test (test code = 2106-3) NEGATIVE NEGATIVE [facility] ClinicsUrine Qtjn1261-26-42 08:41:00* Test Item Value Reference Range Interpretation Comments Urine Test (test code = 2106-3) NEGATIVE NEGATIVE [facility] ClinicsManual basophil jdfyyfxayd4365-11-78 08:00:00* Test Item Value Reference Range Interpretation Comments Basophils % (Manual) (test code = 19133-1) 1 0-1.5 [facility] ClinicsBlood stomatocytes detection by light wmofwpeowb7289-35-88 08:00:00* Test Item Value Reference Range Interpretation Comments Stomatocytes (test code = 43254-1) SLIGHT [facility] ClinicsManual basophil ehejdegfnc9681-18-57 08:00:00* Test Item Value Reference Range Interpretation Comments Basophils % (Manual) (test code = 30673-8) 1 0-1.5 [facility] ClinicsBlood stomatocytes detection by light swaqxaxyfw3749-50-43 08:00:00* Test Item Value Reference Range Interpretation Comments Stomatocytes (test code = 47604-1) SLIGHT [facility] ClinicsUrine human chorionic gonadotropin (hCG) ojqtbloyt6668-54-11 07:30:00* Test Item Value Reference Range Interpretation Comments Urine Test (test code = 2106-3) NEGATIVE NEGATIVE [facility] ClinicsUrine human chorionic gonadotropin (hCG) aznblkcpc0727-13-27 07:30:00* Test Item Value Reference Range Interpretation Comments Urine Test (test code = 2106-3) NEGATIVE NEGATIVE [facility] ClinicsProthrombin Qtfi0952-78-27 22:50:00* Test Item Value Reference Range Interpretation Comments Prothrombin Time (test code = 5902-2) 13.1 11.9-14.5 [facility] ClinicsProthromb Time International Ratio 2019-02-09 22:50:00* Test Item Value Reference Range Interpretation Comments Prothromb Time International Ratio (test code = 6301-6) 0.94 Oral Anticoagulant Therapy INR Values:1. Low Intensity Therapy 1.5 - 2.02 . Moderate Intensity Therapy 2.0 - 3.03. High Intensity Therapy(1) 2.5 - 3. 54. High Intensity Therapy(2) 3.0 - 4.05. Panic Value INR > 5.0 [facility] ClinicsActivated Partial Thromboplast Time 2019-02-09 22:50:00* Test Item Value Reference Range Interpretation Comments Activated Partial Thromboplast Time (test code = 15787-0) 26.8 23.8-35.5 [facility] ClinicsB-Type Natriuretic Ydrgkhc0167-82-88 22:49:00* Test Item Value Reference Range Interpretation Comments B-Type Natriuretic Peptide (test code = 87150-5) 18.6 0-100 [facility] ClinicsCreatine Kinase AM8015-21-98 22:49:00* Test Item Value Reference Range Interpretation Comments Creatine Kinase MB (test code = 16454-3) 1.20 0-5.0 [facility] ClinicsTroponin U4133-03-19 22:49:00* Test Item Value Reference Range Interpretation Comments Troponin I (test code = ISZ8596) 0.008 0-0.300 [facility] ClinicsB-Type Natriuretic Cwcqvya9615-90-43 22:49:00* Test Item Value Reference Range Interpretation Comments B-Type Natriuretic Peptide (test code = 15102-5) 18.6 0-100 [facility] ClinicsCreatine Kinase [id number] 22:49:00* Test Item Value Reference Range Interpretation Comments Creatine Kinase MB (test code = 03104-3) 1.20 0-5.0 [facility] ClinicsTroponin [id number] 22:49:00* Test Item Value Reference Range Interpretation Comments Troponin I (test code = RLD7967) 0.008 0-0.300 [facility]icsB-Type Natriuretic Uajodiw8556-38-58 22:49:00* Test Item Value Reference Range Interpretation Comments B-Type Natriuretic Peptide (test code = 29042-5) 18.6 0-100 [facility]icsB-Type Natriuretic Xwwpcif1991-47-83 22:49:00* Test Item Value Reference Range Interpretation Comments B-Type Natriuretic Peptide (test code = 11014-5) 18.6 0-100 [facility] Qruhg5674-46-68 22:42:00* Test Item Value Reference Range Interpretation Comments Sodium Level (test code = 2951-2) 134 136-145 L [facility]icsPotassium Muiyp0425-88-40 22:42:00* Test Item Value Reference Range Interpretation Comments Potassium Level (test code = 2823-3) 3.5 3.5-5.1 [facility] ClinicsChloride Toqfn6294-38-50 22:42:00* Test Item Value Reference Range Interpretation Comments Chloride Level (test code = 2075-0) 103 98-107 [facility] ClinicsCarbon Dioxide Obvxl9569-10-44 22:42:00* Test Item Value Reference Range Interpretation Comments Carbon Dioxide Level (test code = 2028-9) 26 22-29 [facility] ClinicsAnion Ffm0850-77-43 22:42:00* Test Item Value Reference Range Interpretation Comments Anion Gap (test code = 22532-6) 8.5 8-16 [facility] ClinicsBlood Urea Ubimetil9309-48-87 22:42:00* Test Item Value Reference Range Interpretation Comments Blood Urea Nitrogen (test code = 3094-0) 15 04-03 [facility] ClinicsCreatinine2019-06-03 22:42:00* Test Item Value Reference Range Interpretation Comments Creatinine (test code = 2160-0) 0.97 0.57-1.11 [facility]icsBUN/Creatinine Oxjmm3496-51-91 22:42:00* Test Item Value Reference Range Interpretation Comments BUN/Creatinine Ratio (test code = 3097-3) 15 03-03 [facility] ClinicsEstimat Glomerular Filtration Rate 2019-02-09 22:42:00* Test Item Value Reference Range Interpretation Comments Estimat Glomerular Filtration Rate (test code = 536773011) > 60 >60 Ranges were taken from the National Kidney Disease Education Program and the [facility] literature.Reference ranges:60 or greater: Ztrgoj69-47 ( for 3 consecutive months): Chronic kidney disease 15 or less: Kidney failureEast [facility] Hospital and ClinicsGlucose Jjppc8253-34-09 22:42:00* Test Item Value Reference Range Interpretation Comments Glucose Level (test code = GZJ0100) 87 74-118 [facility] ClinicsCalcium Rqfyo2953-56-56 22:42:00* Test Item Value Reference Range Interpretation Comments Calcium Level (test code = 41080-4) 8.8 8.4-10.2 [facility] ClinicsTotal Ysvsqdayq4885-73-95 22:42:00* Test Item Value Reference Range Interpretation Comments Total Bilirubin (test code = 1975-2) 0.4 0.2-1.2 [facility] ClinicsAspartate Amino Transf (AST/SGOT) 2019-02-09 22:42:00* Test Item Value Reference Range Interpretation Comments Aspartate Amino Transf (AST/SGOT) (test code = Aspartate Amino Transf (AST/SGOT)) 22 534 [facility] ClinicsAlanine Aminotransferase (ALT/SGPT) 2019-02-09 22:42:00* Test Item Value Reference Range Interpretation Comments Alanine Aminotransferase (ALT/SGPT) (test code = 1742-6) 15 0-55 [facility] ClinicsTotal Eortbav6736-04-51 22:42:00* Test Item Value Reference Range Interpretation Comments Total Protein (test code = 2885-2) 9.8 6.5-8.1 H [facility] ClinicsAlbumin2019-06-03 22:42:00* Test Item Value Reference Range Interpretation Comments Albumin (test code = 1751-7) 3.5 3.5-5.0 [facility] ClinicsGlobulin2019-06-03 22:42:00* Test Item Value Reference Range Interpretation Comments Globulin (test code = 97999-3) 6.3 2.3-3.5 H [facility] ClinicsAlbumin/Globulin Aftsf9427-24-64 22:42:00 * Test Item Value Reference Range Interpretation Comments Albumin/Globulin Ratio (test code = 1759-0) 0.6 0.8-2.0 L [facility] ClinicsAlkaline Efgzqmpmgaq7096-67-09 22:42:00* Test Item Value Reference Range Interpretation Comments Alkaline Phosphatase (test code = 6768-6) 22 40-150 L [facility] ClinicsCreatine Aiaztr2316-43-96 22:42:00* Test Item Value Reference Range Interpretation Comments Creatine Kinase (test code = 2157-6) 274 29-168 H [facility] ClinicsCreatine Jfmhgp8869-92-68 22:42:00* Test Item Value Reference Range Interpretation Comments Creatine Kinase (test code = 2157-6) 274 29-168 H [facility] ClinicsWhite Blood Wloon7929-56-63 22:20:00* Test Item Value Reference Range Interpretation Comments White Blood Count (test code = 6690-2) 4.45 4.8-10.8 L [facility] ClinicsRed Blood Kdhrb9523-92-61 22:20:00* Test Item Value Reference Range Interpretation Comments Red Blood Count (test code = 789-8) 3.25 3.6-5.1 L [facility] ClinicsHemoglobin2019-06-03 22:20:00* Test Item Value Reference Range Interpretation Comments Hemoglobin (test code = 48519-3) 9.8 12.0-16.0 L [facility] ClinicsHematocrit2019-06-03 22:20:00* Test Item Value Reference Range Interpretation Comments Hematocrit (test code = 4544-3) 31.1 34.2-44.1 L [facility] ClinicsMean Corpuscular Cxczsr8122-99-84 22:20:00* Test Item Value Reference Range Interpretation Comments Mean Corpuscular Volume (test code = 787-2) 95.7 81-99 [facility] ClinicsMean Corpuscular Cckqwvsplb1324-20-28 22:20:00* Test Item Value Reference Range Interpretation Comments Mean Corpuscular Hemoglobin (test code = 785-6) 30.2 28-32 [facility] Hem[facility] Concent 2019-02-09 22:20:00* Test Item Value Reference Range Interpretation Comments Mean Corpuscular Hemoglobin Concent (test code = 786-4) 31.5 31-35 [facility] ClinicsRed Cell Distribution Qwwvn9650-85-07 22:20:00* Test Item Value Reference Range Interpretation Comments Red Cell Distribution Width (test code = 98067-5) 13.3 11.7 -14.4 [facility] ClinicsPlatelet Kruxk8002-28-42 22:20:00* Test Item Value Reference Range Interpretation Comments Platelet Count (test code = 777-3) 230 140-360 [facility] ClinicsNeutrophils (%) (Auto)2019-02-09 22:20:00 * Test Item Value Reference Range Interpretation Comments Neutrophils (%) (Auto) (test code = 86013-9) 58.5 38.7-80.0 [facility] ClinicsLymphocytes (%) (Auto)2019-02-09 22:20:00 * Test Item Value Reference Range Interpretation Comments Lymphocytes (%) (Auto) (test code = 736-9) 34.8 18.0-39.1 [facility] ClinicsMonocytes (%) (Auto)2019-02-09 22:20:00* Test Item Value Reference Range Interpretation Comments Monocytes (%) (Auto) (test code = 5905-5) 6.3 4.4-11.3 [facility] ClinicsEosinophils (%) (Auto)2019-02-09 22:20:00 * Test Item Value Reference Range Interpretation Comments Eosinophils (%) (Auto) (test code = 713-8) 0.0 0.0-6.0 [facility] ClinicsBasophils (%) (Auto)2019-02-09 22:20:00* Test Item Value Reference Range Interpretation Comments Basophils (%) (Auto) (test code = 706-2) 0.2 0.0-1.0 [facility] ClinicsIM GRANULOCYTES %2019-02-09 22:20:00* Test Item Value Reference Range Interpretation Comments IM GRANULOCYTES % (test code = IM GRANULOCYTES %) 0.2 0.0- 1.0 [facility] ClinicsNeutrophils # (Auto)2019-02-09 22:20:00* Test Item Value Reference Range Interpretation Comments Neutrophils # (Auto) (test code = 751-8) 2.6 2.1-6.9 [facility] ClinicsLymphocytes # (Auto)2019-02-09 22:20:00* Test Item Value Reference Range Interpretation Comments Lymphocytes # (Auto) (test code = 93763-8) 1.6 1.0-3.2 [facility] ClinicsMonocytes # (Auto)2019-02-09 22:20:00* Test Item Value Reference Range Interpretation Comments Monocytes # (Auto) (test code = 742-7) 0.3 0.2-0.8 [facility] ClinicsEosinophils # (Auto)2019-02-09 22:20:00* Test Item Value Reference Range Interpretation Comments Eosinophils # (Auto) (test code = 711-2) 0.0 0.0-0.4 [facility] ClinicsBasophils # (Auto)2019-02-09 22:20:00* Test Item Value Reference Range Interpretation Comments Basophils # (Auto) (test code = 704-7) 0.0 0.0-0.1 [facility] ClinicsAbsolute Immature Granulocyte (auto 2019-02-09 22:20:00* Test Item Value Reference Range Interpretation Comments Absolute Immature Granulocyte (auto (dana t code = Absolute Immature Granulocyte (auto) 0.01 0-0.1 [facility] ClinicsUrine QJJ0680-32-03 20:58:00* Test Item Value Reference Range Interpretation Comments Urine WBC (test code = 5821-4) NONE 0-5 [facility] ClinicsUrine IKD4170-06-60 20:58:00* Test Item Value Reference Range Interpretation Comments Urine RBC (test code = 53271-3) 21-50 0-5 H [facility] ClinicsUrine Ljsskdqi2548-28-60 20:58:00* Test Item Value Reference Range Interpretation Comments Urine Bacteria (test code = 07818-6) MANY NONE H [facility] ClinicsUrine Epithelial Wavxg1599-59-53 20:58:00 * Test Item Value Reference Range Interpretation Comments Urine Epithelial Cells (test code = 67706-8) FEW NONE [facility] ClinicsUrine Zqfoo8084-72-42 20:48:00* Test Item Value Reference Range Interpretation Comments Urine Color (test code = 5778-6) YELLOW YELLOW [facility] ClinicsUrine Xxwutcl0535-07-99 20:48:00* Test Item Value Reference Range Interpretation Comments Urine Clarity (test code = 48918-5) SL CLOUDY CLEAR [facility] ClinicsUrine Specific Rnfbhxp7974-16-50 20:48:00 * Test Item Value Reference Range Interpretation Comments Urine Specific [place] (test code = 5811-5) 1.020 1.010-1.02 5 [facility] ClinicsUrine bD9349-59-20 20:48:00* Test Item Value Reference Range Interpretation Comments Urine pH (test code = 90104-2) 5.5 5-7 [facility] ClinicsUrine Leukocyte Vbgphmnn6618-71-52 20:48:00* Test Item Value Reference Range Interpretation Comments Urine Leukocyte Esterase (test code = 14595-6) NEGATIVE NEGATIV E [facility] ClinicsUrine Lcjqtub1419-94-96 20:48:00* Test Item Value Reference Range Interpretation Comments Urine Nitrite (test code = 53946-0) NEGATIVE NEGATIVE [facility] ClinicsUrine Isdzaua6130-52-92 20:48:00* Test Item Value Reference Range Interpretation Comments Urine Protein (test code = 00148-9) NEGATIVE NEGATIVE [facility] ClinicsUrine Glucose (UA)2019-02-09 20:48:00* Test Item Value Reference Range Interpretation Comments Urine Glucose (UA) (test code = 18598-1) NEGATIVE NEGATIVE [facility] ClinicsUrine Wzvinhd7701-16-42 20:48:00* Test Item Value Reference Range Interpretation Comments Urine Ketones (test code = 74482-1) NEGATIVE NEGATIVE [facility] ClinicsUrine Jmwlwmarzxps4991-73-68 20:48:00* Test Item Value Reference Range Interpretation Comments Urine Urobilinogen (test code = 81932-8) 0.2 0.2-1 [facility] ClinicsUrine Fjoiyyyqv9928-49-88 20:48:00* Test Item Value Reference Range Interpretation Comments Urine Bilirubin (test code = 1977-8) NEGATIVE NEGATIVE [facility] ClinicsUrine Ascgp0038-86-74 20:48:00* Test Item Value Reference Range Interpretation Comments Urine Blood (test code = 86698-3) 3+ NEGATIVE [facility] ClinicsCHEST SINGLE (PORTABLE)2019-02-09 20:45:00 [place] [address] Patient Name: CHRISTINE OTTO MR #: [id number] : 1990 Age/Sex: 28/F Req #: [id number] Adm Physician: Ordered by: JOSE MANUEL COBURN MD Report #: [id number] Location: ER Room/Bed: Procedure: [id number] DX/ CHEST SINGLE (PORTABLE) Exam Date: Exam [...] COPY TO: JOSE MANUEL COBURN MD Urine Mhyo7848-61-92 20:44:00* Test Item Value Reference Range Interpretation Comments Urine Test (test code = 2106-3) NEGATIVE NEGATIVE [facility] BPBJSXIKQ6227-18-49 10:04:00 - DIAG MAMM BILATERAL AYESHA CAD DIGITALBILATERAL FIRST EVER DIGITAL DIAGNOSTIC MAMMOGRAM 3D/2D WITH CAD: 12/17/2018CLINICAL: Nipple discharge, right breast, brown. Digital breast tomosynthesis was performed in addition to routine CC and MLO views. Current mammographic images were evaluated by either a [employer] M-Vu or a [employer] ImageChecker CAD (computer aided detection system). No [...] ACR guidelines. Naseem Reese M.D. rb/:12/17/2018 10:04:00 Manager Costing: Sandra TAY, [facility]-FWletter sent: BIRADS 1-2 Combo FU [...] mammographic images were evaluated by either a [employer] M-Vu or a [employer] CAD (computer aided detection system). No prior [...] ACR guidelines. Naseem Reese M.D. rb/:12/17/2018 10:04:00 Manager Costing: Russel Cavazos [facility]-FWletter sent: BIRADS 1-2 Combo FU Letter Mammogram BI-RADS: 0 Indeterminate Ultrasound BI-RADS: 2 BenignUrine Ebaca8343-36-34 00:45:00* Test Item Value Reference Range Interpretation Comments Urine Color (test code = 5778-6) YELLOW YELLOW [facility]icsUrine Zzfabse0056-25-34 00:45:00* Test Item Value Reference Range Interpretation Comments Urine Clarity (test code = 79705-7) CLOUDY CLEAR H [facility] ClinicsUrine Specific Goqbeag4106-88-29 00:45:00 * Test Item Value Reference Range Interpretation Comments Urine Specific [place] (test code = 5811-5) 1.025 1.010-1.02 5 [facility]icsUrine lL0809-42-06 00:45:00* Test Item Value Reference Range Interpretation Comments Urine pH (test code = 73146-7) 6 5-7 [facility]icsUrine Leukocyte Oxtoqajw5352-70-63 00:45:00* Test Item Value Reference Range Interpretation Comments Urine Leukocyte Esterase (test code = 5799-2) NEGATIVE NEGATIVE [facility] Cvrpjbl2147-89-91 00:45:00* Test Item Value Reference Range Interpretation Comments Urine Nitrite (test code = 25325-5) NEGATIVE NEGATIVE [facility] ClinicsUrine Kiygzmi8497-02-67 00:45:00* Test Item Value Reference Range Interpretation Comments Urine Protein (test code = 5804-0) TRACE NEGATIVE H [facility] ClinicsUrine Glucose (UA)2018-12-15 00:45:00* Test Item Value Reference Range Interpretation Comments Urine Glucose (UA) (test code = 2349-9) NEGATIVE NEGATIVE [facility]icsUrine Ltntjac3063-31-75 00:45:00* Test Item Value Reference Range Interpretation Comments Urine Ketones (test code = 36873-8) NEGATIVE NEGATIVE [facility]icsUrine Tkbyfowoycxe1721-17-41 00:45:00* Test Item Value Reference Range Interpretation Comments Urine Urobilinogen (test code = 20962-5) 0.2 0.2-1 [facility] ClinicsUrine Lmlaihdfw7689-60-93 00:45:00* Test Item Value Reference Range Interpretation Comments Urine Bilirubin (test code = 1978-6) NEGATIVE NEGATIVE [facility]icsUrine Crlnt7392-96-98 00:45:00* Test Item Value Reference Range Interpretation Comments Urine Blood (test code = 39116-3) 3+ NEGATIVE H [facility] ClinicsUrine KGX2374-02-26 00:45:00* Test Item Value Reference Range Interpretation Comments Urine WBC (test code = 5821-4) 21-50 0-5 H [facility] ClinicsUrine UIJ0445-00-75 00:45:00* Test Item Value Reference Range Interpretation Comments Urine RBC (test code = 34571-7) >50 0-5 H [facility] ClinicsUrine Dgknngib8497-77-97 00:45:00* Test Item Value Reference Range Interpretation Comments Urine Bacteria (test code = 23109-3) MODERATE NONE H [facility] ClinicsUrine Epithelial Ivire7634-94-01 00:45:00 * Test Item Value Reference Range Interpretation Comments Urine Epithelial Cells (test code = 32543-9) FEW NONE [facility] ClinicsUrine Zxur7813-88-39 00:45:00* Test Item Value Reference Range Interpretation Comments Urine Test (test code = 2106-3) NEGATIVE NEGATIVE Y@IS THE INTERNAL POSITIVE CONTROL OK? [facility] Th[facility]at Winxjqu5899-28-39 11:10:00* Test Item Value Reference Range Interpretation Comments Throat Culture (test code = 626-2) Organism: STREPTOCOCCUS GROUP A [facility]icsThroat Dsjchvm3022-25-53 11:10:00* Test Item Value Reference Range Interpretation Comments Throat Culture (test code = 626-2) Organism: STREPTOCOCCUS GROUP A [facility] ClinicsUrine XFT6252-84-27 13:32:00* Test Item Value Reference Range Interpretation Comments Urine WBC (test code = 5821-4) 6-10 0-5 H [facility] ClinicsUrine FUW1816-19-98 13:32:00* Test Item Value Reference Range Interpretation Comments Urine RBC (test code = 96490-3) 11-20 0-5 H [facility] ClinicsUrine Axhfxagx7000-69-50 13:32:00* Test Item Value Reference Range Interpretation Comments Urine Bacteria (test code = 12426-0) RARE NONE [facility] ClinicsUrine Epithelial Tycpr4369-83-41 13:32:00 * Test Item Value Reference Range Interpretation Comments Urine Epithelial Cells (test code = 30943-7) FEW NONE [facility]icsUrine Ibccf2728-63-97 13:18:00* Test Item Value Reference Range Interpretation Comments Urine Color (test code = 5778-6) YELLOW YELLOW [facility]icsUrine Lpkhwty2164-90-80 13:18:00* Test Item Value Reference Range Interpretation Comments Urine Clarity (test code = 72024-4) SL CLOUDY CLEAR [facility] ClinicsUrine Specific Jaufjmd1669-11-24 13:18:00 * Test Item Value Reference Range Interpretation Comments Urine Specific [place] (test code = 5811-5) 1.020 1.010-1.02 5 [facility] ClinicsUrine iK9053-77-49 13:18:00* Test Item Value Reference Range Interpretation Comments Urine pH (test code = 29226-4) 6 5-7 [facility] ClinicsUrine Leukocyte Zcfaxikc3863-93-79 13:18:00* Test Item Value Reference Range Interpretation Comments Urine Leukocyte Esterase (test code = 5799-2) TRACE NEGATIVE H [facility] ClinicsUrine Itzxpet3877-65-36 13:18:00* Test Item Value Reference Range Interpretation Comments Urine Nitrite (test code = 93297-1) NEGATIVE NEGATIVE [facility]icsUrine Bmilehf0889-24-52 13:18:00* Test Item Value Reference Range Interpretation Comments Urine Protein (test code = 5804-0) TRACE NEGATIVE H [facility] ClinicsUrine Glucose (UA)2018-07-29 13:18:00* Test Item Value Reference Range Interpretation Comments Urine Glucose (UA) (test code = 2349-9) NEGATIVE NEGATIVE [facility]icsUrine Sehbrdx0233-96-44 13:18:00* Test Item Value Reference Range Interpretation Comments Urine Ketones (test code = 02332-7) NEGATIVE NEGATIVE [facility] ClinicsUrine Zostfpnppjnz7279-10-82 13:18:00* Test Item Value Reference Range Interpretation Comments Urine Urobilinogen (test code = 46820-2) 0.2 0.2-1 [facility]icsUrine Psvshbpkf8158-41-49 13:18:00* Test Item Value Reference Range Interpretation Comments Urine Bilirubin (test code = 1978-6) NEGATIVE NEGATIVE [facility]icsUrine Dhjxj7345-58-02 13:18:00* Test Item Value Reference Range Interpretation Comments Urine Blood (test code = 42944-0) 3+ NEGATIVE H [facility] 12:38:00* Test Item Value Reference Range Interpretation Comments Monoscreen (test code = 5215-9) NEGATIVE NEGATIVE [facility]2018-11-20 12:38:00* Test Item Value Reference Range Interpretation Comments Monoscreen (test code = 5215-9) NEGATIVE NEGATIVE [facility]creen2018-11-20 12:38:00* Test Item Value Reference Range Interpretation Comments Monoscreen (test code = 5215-9) NEGATIVE NEGATIVE [facility] ClinicsInfluenza Virus Types A,B Antigen 2018-07-29 12:22:00* Test Item Value Reference Range Interpretation Comments Influenza Virus Types A,B Antigen (test code = 61372-9) NEGATIVE NEGATIVE [facility] ClinicsInfluenza Virus Types A,B Antigen 2018-07-29 12:22:00* Test Item Value Reference Range Interpretation Comments Influenza Virus Types A,B Antigen (test code = 48195-7) NEGATIVE NEGATIVE [facility] ClinicsInfluenza Virus Types A,B Antigen 2018-07-29 12:22:00* Test Item Value Reference Range Interpretation Comments Influenza Virus Types A,B Antigen (test code = 11122-7) NEGATIVE NEGATIVE [facility] ClinicsThyroid Stimulating Hormone (TSH) 2018-07-29 12:17:00* Test Item Value Reference Range Interpretation Comments Thyroid Stimulating Hormone (TSH) (test code = 63332-3) 4.481 0.350-4.940 [facility] ClinicsThyroid Stimulating Hormone (TSH) 2018-07-29 12:17:00* Test Item Value Reference Range Interpretation Comments Thyroid Stimulating Hormone (TSH) (test code = 60356-4) 4.481 0.350-4.940 [facility] ClinicsThyroid Stimulating Hormone (TSH) 2018-07-29 12:17:00* Test Item Value Reference Range Interpretation Comments Thyroid Stimulating Hormone (TSH) (test code = 09444-1) 4.481 0.350-4.940 [facility] ClinicsGroup A Streptococcus Duyxwa8043-94-57 12:09:00* Test Item Value Reference Range Interpretation Comments Group A Streptococcus Screen (test code = 42963-7) NEGATIVE NEG ATIVE [facility] ClinicsGroup A Streptococcus Lvloiw6177-33-90 12:09:00* Test Item Value Reference Range Interpretation Comments Group A Streptococcus Screen (test code = 35580-2) NEGATIVE [facility] A Streptococcus Psstsp1322-81-19 12:09:00* Test Item Value Reference Range Interpretation Comments Group A Streptococcus Screen (test code = 85123-9) NEGATIVE NEG ATIVE [facility] Gwgrc9432-31-06 12:02:00* Test Item Value Reference Range Interpretation Comments Sodium Level (test code = 2951-2) 132 136-145 L [facility] ClinicsPotassium Ksyhm1495-62-87 12:02:00* Test Item Value Reference Range Interpretation Comments Potassium Level (test code = 2823-3) 3.4 3.5-5.1 L [facility] ClinicsChloride Jzmky8375-58-33 12:02:00* Test Item Value Reference Range Interpretation Comments Chloride Level (test code = 2075-0) 101 98-107 [facility] ClinicsCarbon Dioxide Lqfop2027-52-41 12:02:00* Test Item Value Reference Range Interpretation Comments Carbon Dioxide Level (test code = 2028-9) 26 22-29 [facility] ClinicsAnion Kre5775-99-05 12:02:00* Test Item Value Reference Range Interpretation Comments Anion Gap (test code = 49409-2) 8.4 8-16 [facility] ClinicsBlood Urea Enqyupvp0087-89-70 12:02:00* Test Item Value Reference Range Interpretation Comments Blood Urea Nitrogen (test code = 3094-0) 13 7-26 [facility] ClinicsCreatinine2018-11-20 12:02:00* Test Item Value Reference Range Interpretation Comments Creatinine (test code = 2160-0) 1.11 0.57-1.11 [facility] ClinicsBUN/Creatinine Dsmex9621-99-30 12:02:00* Test Item Value Reference Range Interpretation Comments BUN/Creatinine Ratio (test code = 3097-3) 12 6-25 [facility] ClinicsEstimat Glomerular Filtration Rate 2018-07-29 12:02:00* Test Item Value Reference Range Interpretation Comments Estimat Glomerular Filtration Rate (test code = 161905279) > 60 >60 Ranges were taken from the National Kidney Disease Education Program and the [facility] Kidney Foundation literature.Reference ranges:60 or greater: Gtgysx38-24 ( for 3 consecutive months): Chronic kidney disease 15 or less: Kidney failureEast [facility] Hospital and ClinicsGlucose Glqcp8281-84-91 12:02:00* Test Item Value Reference Range Interpretation Comments Glucose Level (test code = TEI6843) 124 74-118 H [facility] ClinicsCalcium Swpvw0710-30-74 12:02:00* Test Item Value Reference Range Interpretation Comments Calcium Level (test code = 67771-5) 8.7 8.4-10.2 [facility] [facility] ClinicsTotal Zsqljakcp6182-56-48 12:02:00* Test Item Value Reference Range Interpretation Comments Total Bilirubin (test code = 1975-2) 0.4 0.2-1.2 [facility] ClinicsAspartate Amino Transf (AST/SGOT) 2018-07-29 12:02:00* Test Item Value Reference Range Interpretation Comments Aspartate Amino Transf (AST/SGOT) (test code = Aspartate Amino Transf (AST/SGOT)) 20 5-34 [facility] ClinicsAlanine Aminotransferase (ALT/SGPT) 2018-07-29 12:02:00* Test Item Value Reference Range Interpretation Comments Alanine Aminotransferase (ALT/SGPT) (test code = 1742-6) 12 0-55 [facility]icsTotal Qzkboxe2706-80-81 12:02:00* Test Item Value Reference Range Interpretation Comments Total Protein (test code = 2885-2) 8.7 6.5-8.1 H [facility] ClinicsAlbumin2018-11-20 12:02:00* Test Item Value Reference Range Interpretation Comments Albumin (test code = 1751-7) 2.9 3.5-5.0 L [facility] ClinicsGlobulin2018-11-20 12:02:00* Test Item Value Reference Range Interpretation Comments Globulin (test code = 83712-4) 5.8 2.3-3.5 H [facility] ClinicsAlbumin/Globulin Qkzam4388-77-89 12:02:00 * Test Item Value Reference Range Interpretation Comments Albumin/Globulin Ratio (test code = 1759-0) 0.5 0.8-2.0 L [facility] ClinicsAlkaline Tutunevmilo3827-93-86 12:02:00* Test Item Value Reference Range Interpretation Comments Alkaline Phosphatase (test code = 6768-6) 20 40-150 L [facility] ClinicsLipase2018-11-20 12:02:00* Test Item Value Reference Range Interpretation Comments Lipase (test code = 3040-3) 52 8-78 [facility] Dqwkw1119-84-92 12:02:00* Test Item Value Reference Range Interpretation Comments Sodium Level (test code = 2951-2) 132 136-145 L [facility] ClinicsPotassium Vfpgq2425-11-31 12:02:00* Test Item Value Reference Range Interpretation Comments Potassium Level (test code = 2823-3) 3.4 3.5-5.1 L [facility] ClinicsChloride Mumml8668-74-48 12:02:00* Test Item Value Reference Range Interpretation Comments Chloride Level (test code = 2075-0) 101 98-107 [facility] ClinicsCarbon Dioxide Yebpj7270-20-28 12:02:00* Test Item Value Reference Range Interpretation Comments Carbon Dioxide Level (test code = 2028-9) 26 22-29 [facility] ClinicsAnion Mhv0549-87-87 12:02:00* Test Item Value Reference Range Interpretation Comments Anion Gap (test code = 85985-6) 8.4 8-16 [facility] ClinicsBlood Urea Tekszlaq0415-81-25 12:02:00* Test Item Value Reference Range Interpretation Comments Blood Urea Nitrogen (test code = 3094-0) 13 - [facility] ClinicsCreatinine2018-11-20 12:02:00* Test Item Value Reference Range Interpretation Comments Creatinine (test code = 2160-0) 1.11 0.57-1.11 [facility] ClinicsBUN/Creatinine Dtbml8391-16-54 12:02:00* Test Item Value Reference Range Interpretation Comments BUN/Creatinine Ratio (test code = 3097-3) 12 03-03 [facility] ClinicsEstimat Glomerular Filtration Rate 2018-07-29 12:02:00* Test Item Value Reference Range Interpretation Comments Estimat Glomerular Filtration Rate (test code = 423558713) > 60 >60 Ranges were taken from the National Kidney Disease Education Program and the [facility] Kidney Foundation literature.Reference ranges:60 or greater: Kumodf48-84 ( for 3 consecutive months): Chronic kidney disease 15 or less: Kidney failureEast [facility] Hospital and ClinicsGlucose Heone0530-58-75 12:02:00* Test Item Value Reference Range Interpretation Comments Glucose Level (test code = UHE4423) 124 74-118 H [facility] ClinicsCalcium Ebyww2255-92-50 12:02:00* Test Item Value Reference Range Interpretation Comments Calcium Level (test code = 71008-2) 8.7 8.4-10.2 [facility] ClinicsTotal Tdfvexhgo3317-48-82 12:02:00* Test Item Value Reference Range Interpretation Comments Total Bilirubin (test code = 1975-2) 0.4 0.2-1.2 [facility] ClinicsAspartate Amino Transf (AST/SGOT) 2018-07-29 12:02:00* Test Item Value Reference Range Interpretation Comments Aspartate Amino Transf (AST/SGOT) (test code = Aspartate Amino Transf (AST/SGOT)) 20 5-34 [facility] ClinicsAlanine Aminotransferase (ALT/SGPT) 2018-07-29 12:02:00* Test Item Value Reference Range Interpretation Comments Alanine Aminotransferase (ALT/SGPT) (test code = 1742-6) 12 0-55 [facility] ClinicsTotal Sdurltz6104-53-05 12:02:00* Test Item Value Reference Range Interpretation Comments Total Protein (test code = 2885-2) 8.7 6.5-8.1 H [facility] ClinicsAlbumin2018-11-20 12:02:00* Test Item Value Reference Range Interpretation Comments Albumin (test code = 1751-7) 2.9 3.5-5.0 L [facility] ClinicsGlobulin2018-11-20 12:02:00* Test Item Value Reference Range Interpretation Comments Globulin (test code = 02659-5) 5.8 2.3-3.5 H [facility] ClinicsAlbumin/Globulin Rhtiw5020-78-79 12:02:00 * Test Item Value Reference Range Interpretation Comments Albumin/Globulin Ratio (test code = 1759-0) 0.5 0.8-2.0 L [facility] ClinicsAlkaline Ckwhyctiqkh0931-50-91 12:02:00* Test Item Value Reference Range Interpretation Comments Alkaline Phosphatase (test code = 6768-6) 20 40-150 L [facility] ClinicsLipase2018-11-20 12:02:00* Test Item Value Reference Range Interpretation Comments Lipase (test code = 3040-3) 52 8-78 [facility] ClinicsLipase2018-11-20 12:02:00* Test Item Value Reference Range Interpretation Comments Lipase (test code = 3040-3) 52 8-78 [facility] ClinicsWhite Blood Oajgz5301-05-89 11:42:00* Test Item Value Reference Range Interpretation Comments White Blood Count (test code = 6690-2) 9.60 4.8-10.8 [facility] ClinicsRed Blood Vujpj1564-54-27 11:42:00* Test Item Value Reference Range Interpretation Comments Red Blood Count (test code = 789-8) 3.32 3.6-5.1 L [facility] ClinicsHemoglobin2018-11-20 11:42:00* Test Item Value Reference Range Interpretation Comments Hemoglobin (test code = 94871-0) 10.1 12.0-16.0 L [facility] ClinicsHematocrit2018-11-20 11:42:00* Test Item Value Reference Range Interpretation Comments Hematocrit (test code = 4544-3) 31.6 34.2-44.1 L [facility] ClinicsMean Corpuscular Uiwchr5030-42-94 11:42:00* Test Item Value Reference Range Interpretation Comments Mean Corpuscular Volume (test code = 787-2) 95.2 81-99 [facility] ClinicsMean Corpuscular Ahvcelczog7975-17-53 11:42:00* Test Item Value Reference Range Interpretation Comments Mean Corpuscular Hemoglobin (test code = 785-6) 30.4 28-32 [facility] ClinicsMean Corpuscular Hemoglobin Concent 2018-07-29 11:42:00* Test Item Value Reference Range Interpretation Comments Mean Corpuscular Hemoglobin Concent (test code = 786-4) 32.0 31-35 [facility] ClinicsRed Cell Distribution Sxexm2916-26-51 11:42:00* Test Item Value Reference Range Interpretation Comments Red Cell Distribution Width (test code = 60143-1) 13.5 11.7 -14.4 [facility] ClinicsPlatelet Atdco1429-19-52 11:42:00* Test Item Value Reference Range Interpretation Comments Platelet Count (test code = 777-3) 249 140-360 [facility] ClinicsNeutrophils (%) (Auto)2018-07-29 11:42:00 * Test Item Value Reference Range Interpretation Comments Neutrophils (%) (Auto) (test code = 11524-2) 75.8 38.7-80.0 [facility] ClinicsLymphocytes (%) (Auto)2018-07-29 11:42:00 * Test Item Value Reference Range Interpretation Comments Lymphocytes (%) (Auto) (test code = 736-9) 19.3 18.0-39.1 [facility] ClinicsMonocytes (%) (Auto)2018-07-29 11:42:00* Test Item Value Reference Range Interpretation Comments Monocytes (%) (Auto) (test code = 5905-5) 4.3 4.4-11.3 L [facility] ClinicsEosinophils (%) (Auto)2018-07-29 11:42:00 * Test Item Value Reference Range Interpretation Comments Eosinophils (%) (Auto) (test code = 713-8) 0.0 0.0-6.0 [facility] ClinicsBasophils (%) (Auto)2018-07-29 11:42:00* Test Item Value Reference Range Interpretation Comments Basophils (%) (Auto) (test code = 706-2) 0.2 0.0-1.0 [facility] ClinicsIM GRANULOCYTES %2018-07-29 11:42:00* Test Item Value Reference Range Interpretation Comments IM GRANULOCYTES % (test code = IM GRANULOCYTES %) 0.4 0.0- 1.0 [facility] ClinicsNeutrophils # (Auto)2018-07-29 11:42:00* Test Item Value Reference Range Interpretation Comments Neutrophils # (Auto) (test code = 751-8) 7.3 2.1-6.9 H [facility] ClinicsLymphocytes # (Auto)2018-07-29 11:42:00* Test Item Value Reference Range Interpretation Comments Lymphocytes # (Auto) (test code = 29985-7) 1.9 1.0-3.2 [facility]icsMonocytes # (Auto)2018-07-29 11:42:00* Test Item Value Reference Range Interpretation Comments Monocytes # (Auto) (test code = 742-7) 0.4 0.2-0.8 [facility] ClinicsEosinophils # (Auto)2018-07-29 11:42:00* Test Item Value Reference Range Interpretation Comments Eosinophils # (Auto) (test code = 711-2) 0.0 0.0-0.4 [facility] ClinicsBasophils # (Auto)2018-07-29 11:42:00* Test Item Value Reference Range Interpretation Comments Basophils # (Auto) (test code = 704-7) 0.0 0.0-0.1 [facility] ClinicsAbsolute Immature Granulocyte (auto 2018-07-29 11:42:00* Test Item Value Reference Range Interpretation Comments Absolute Immature Granulocyte (auto (dana t code = Absolute Immature Granulocyte (auto) 0.04 0-0.1 [facility] ClinicsWhite Blood Wlbcz2388-97-00 11:42:00* Test Item Value Reference Range Interpretation Comments White Blood Count (test code = 6690-2) 9.60 4.8-10.8 [facility] ClinicsRed Blood Hatzy9124-51-15 11:42:00* Test Item Value Reference Range Interpretation Comments Red Blood Count (test code = 789-8) 3.32 3.6-5.1 L [facility] ClinicsHemoglobin2018-11-20 11:42:00* Test Item Value Reference Range Interpretation Comments Hemoglobin (test code = 18469-7) 10.1 12.0-16.0 L [facility] ClinicsHematocrit2018-11-20 11:42:00* Test Item Value Reference Range Interpretation Comments Hematocrit (test code = 4544-3) 31.6 34.2-44.1 L [facility] ClinicsMean Corpuscular Tebzsx7165-14-86 11:42:00* Test Item Value Reference Range Interpretation Comments Mean Corpuscular Volume (test code = 787-2) 95.2 81-99 [facility] ClinicsMean Corpuscular Csyivbfqja4271-32-58 11:42:00* Test Item Value Reference Range Interpretation Comments Mean Corpuscular Hemoglobin (test code = 785-6) 30.4 28-32 [facility] Hem[facility] Concent 2018-07-29 11:42:00* Test Item Value Reference Range Interpretation Comments Mean Corpuscular Hemoglobin Concent (test code = 786-4) 32.0 31-35 [facility] ClinicsRed Cell Distribution Umesx4481-51-74 11:42:00* Test Item Value Reference Range Interpretation Comments Red Cell Distribution Width (test code = 20459-8) 13.5 11.7 -14.4 [facility] ClinicsPlatelet Jggec4105-30-34 11:42:00* Test Item Value Reference Range Interpretation Comments Platelet Count (test code = 777-3) 249 140-360 [facility] ClinicsNeutrophils (%) (Auto)2018-07-29 11:42:00 * Test Item Value Reference Range Interpretation Comments Neutrophils (%) (Auto) (test code = 08134-2) 75.8 38.7-80.0 [facility] ClinicsLymphocytes (%) (Auto)2018-07-29 11:42:00 * Test Item Value Reference Range Interpretation Comments Lymphocytes (%) (Auto) (test code = 736-9) 19.3 18.0-39.1 [facility] ClinicsMonocytes (%) (Auto)2018-07-29 11:42:00* Test Item Value Reference Range Interpretation Comments Monocytes (%) (Auto) (test code = 5905-5) 4.3 4.4-11.3 L [facility] ClinicsEosinophils (%) (Auto)2018-07-29 11:42:00 * Test Item Value Reference Range Interpretation Comments Eosinophils (%) (Auto) (test code = 713-8) 0.0 0.0-6.0 [facility] ClinicsBasophils (%) (Auto)2018-07-29 11:42:00* Test Item Value Reference Range Interpretation Comments Basophils (%) (Auto) (test code = 706-2) 0.2 0.0-1.0 [facility] ClinicsIM GRANULOCYTES %2018-07-29 11:42:00* Test Item Value Reference Range Interpretation Comments IM GRANULOCYTES % (test code = IM GRANULOCYTES %) 0.4 0.0- 1.0 [facility] ClinicsNeutrophils # (Auto)2018-07-29 11:42:00* Test Item Value Reference Range Interpretation Comments Neutrophils # (Auto) (test code = 751-8) 7.3 2.1-6.9 H [facility] ClinicsLymphocytes # (Auto)2018-07-29 11:42:00* Test Item Value Reference Range Interpretation Comments Lymphocytes # (Auto) (test code = 43897-9) 1.9 1.0-3.2 [facility] ClinicsMonocytes # (Auto)2018-07-29 11:42:00* Test Item Value Reference Range Interpretation Comments Monocytes # (Auto) (test code = 742-7) 0.4 0.2-0.8 [facility] ClinicsEosinophils # (Auto)2018-07-29 11:42:00* Test Item Value Reference Range Interpretation Comments Eosinophils # (Auto) (test code = 711-2) 0.0 0.0-0.4 [facility] ClinicsBasophils # (Auto)2018-07-29 11:42:00* Test Item Value Reference Range Interpretation Comments Basophils # (Auto) (test code = 704-7) 0.0 0.0-0.1 [facility] ClinicsAbsolute Immature Granulocyte (auto 2018-07-29 11:42:00* Test Item Value Reference Range Interpretation Comments Absolute Immature Granulocyte (auto (dana t code = Absolute Immature Granulocyte (auto) 0.04 0-0.1 [facility]odium Dvbrx1269-88-08 07:08:00* Test Item Value Reference Range Interpretation Comments Sodium Level (test code = 2951-2) 134 136-145 L [facility] ClinicsPotassium Uwdia1460-92-30 07:08:00* Test Item Value Reference Range Interpretation Comments Potassium Level (test code = 2823-3) 4.2 3.5-5.1 [facility] ClinicsChloride Pofhv4092-18-77 07:08:00* Test Item Value Reference Range Interpretation Comments Chloride Level (test code = 2075-0) 104 98-107 [facility] ClinicsCarbon Dioxide Tbxgr7288-40-20 07:08:00* Test Item Value Reference Range Interpretation Comments Carbon Dioxide Level (test code = 2028-9) 23 22-29 [facility] ClinicsAnion Keb7214-60-56 07:08:00* Test Item Value Reference Range Interpretation Comments Anion Gap (test code = 22363-8) 11.2 8-16 [facility] ClinicsBlood Urea Ycibruhy5468-96-51 07:08:00* Test Item Value Reference Range Interpretation Comments Blood Urea Nitrogen (test code = 3094-0) 19 7-26 [facility] ClinicsCreatinine2018-08-25 07:08:00* Test Item Value Reference Range Interpretation Comments Creatinine (test code = 2160-0) 0.88 0.57-1.11 [facility] ClinicsBUN/Creatinine Ckimp6237-55-34 07:08:00* Test Item Value Reference Range Interpretation Comments BUN/Creatinine Ratio (test code = 3097-3) 22 03-03 [facility] ClinicsEstimat Glomerular Filtration Rate 2018-05-03 07:08:00* Test Item Value Reference Range Interpretation Comments Estimat Glomerular Filtration Rate (test code = 79207-3) 60- >60 Ranges were taken from the National Kidney Disease Education Program and the [facility] Kidney Foundation literature.Reference ranges:60 or greater: Daqrvf97-41 ( for 3 consecutive months): Chronic kidney disease 15 or less: Kidney failureEast [facility] Hospital and ClinicsGlucose Ciddz7524-37-47 07:08:00* Test Item Value Reference Range Interpretation Comments Glucose Level (test code = NXH9917) 100 74-118 [facility] ClinicsCalcium Hmoyl5394-20-69 07:08:00* Test Item Value Reference Range Interpretation Comments Calcium Level (test code = 63111-1) 8.5 8.4-10.2 [facility] ClinicsWhite Blood Tyiqx6166-88-45 06:46:00* Test Item Value Reference Range Interpretation Comments White Blood Count (test code = 6690-2) 4.82 4.8-10.8 [facility] ClinicsRed Blood Joswr3459-42-43 06:46:00* Test Item Value Reference Range Interpretation Comments Red Blood Count (test code = 789-8) 2.77 3.6-5.1 L [facility] ClinicsHemoglobin2018-08-25 06:46:00* Test Item Value Reference Range Interpretation Comments Hemoglobin (test code = 04511-0) 8.5 12.0-16.0 L [facility] ClinicsHematocrit2018-08-25 06:46:00* Test Item Value Reference Range Interpretation Comments Hematocrit (test code = 4544-3) 25.9 34.2-44.1 L [facility] ClinicsMean Corpuscular Pgoxkh8741-82-59 06:46:00* Test Item Value Reference Range Interpretation Comments Mean Corpuscular Volume (test code = 787-2) 93.5 81-99 [facility] ClinicsMean Corpuscular Ftaxrnuraa9371-14-37 06:46:00* Test Item Value Reference Range Interpretation Comments Mean Corpuscular Hemoglobin (test code = 785-6) 30.7 28-32 [facility] ClinicsMean Corpuscular Hemoglobin Concent 2018-05-03 06:46:00* Test Item Value Reference Range Interpretation Comments Mean Corpuscular Hemoglobin Concent (test code = 786-4) 32.8 31-35 [facility] ClinicsRed Cell Distribution Nbgee1257-00-82 06:46:00* Test Item Value Reference Range Interpretation Comments Red Cell Distribution Width (test code = 83351-2) 14.1 11.7 -14.4 [facility] ClinicsPlatelet Ykflg6311-28-58 06:46:00* Test Item Value Reference Range Interpretation Comments Platelet Count (test code = 777-3) 204 140-360 [facility] ClinicsNeutrophils (%) (Auto)2018-05-03 06:46:00 * Test Item Value Reference Range Interpretation Comments Neutrophils (%) (Auto) (test code = 62994-0) 59.1 38.7-80.0 [facility] ClinicsLymphocytes (%) (Auto)2018-05-03 06:46:00 * Test Item Value Reference Range Interpretation Comments Lymphocytes (%) (Auto) (test code = 736-9) 35.7 18.0-39.1 [facility] ClinicsMonocytes (%) (Auto)2018-05-03 06:46:00* Test Item Value Reference Range Interpretation Comments Monocytes (%) (Auto) (test code = 5905-5) 4.6 4.4-11.3 [facility] ClinicsEosinophils (%) (Auto)2018-05-03 06:46:00 * Test Item Value Reference Range Interpretation Comments Eosinophils (%) (Auto) (test code = 713-8) 0.2 0.0-6.0 [facility] ClinicsBasophils (%) (Auto)2018-05-03 06:46:00* Test Item Value Reference Range Interpretation Comments Basophils (%) (Auto) (test code = 706-2) 0.2 0.0-1.0 [facility] ClinicsIM GRANULOCYTES %2018-05-03 06:46:00* Test Item Value Reference Range Interpretation Comments IM GRANULOCYTES % (test code = IM GRANULOCYTES %) 0.2 0.0- 1.0 [facility] ClinicsNeutrophils # (Auto)2018-05-03 06:46:00* Test Item Value Reference Range Interpretation Comments Neutrophils # (Auto) (test code = 751-8) 2.9 2.1-6.9 [facility] ClinicsLymphocytes # (Auto)2018-05-03 06:46:00* Test Item Value Reference Range Interpretation Comments Lymphocytes # (Auto) (test code = 31372-9) 1.7 1.0-3.2 [facility] ClinicsMonocytes # (Auto)2018-05-03 06:46:00* Test Item Value Reference Range Interpretation Comments Monocytes # (Auto) (test code = 742-7) 0.2 0.2-0.8 [facility] ClinicsEosinophils # (Auto)2018-05-03 06:46:00* Test Item Value Reference Range Interpretation Comments Eosinophils # (Auto) (test code = 711-2) 0.0 0.0-0.4 [facility] ClinicsBasophils # (Auto)2018-05-03 06:46:00* Test Item Value Reference Range Interpretation Comments Basophils # (Auto) (test code = 704-7) 0.0 0.0-0.1 [facility] ClinicsAbsolute Immature Granulocyte (auto 2018-05-03 06:46:00* Test Item Value Reference Range Interpretation Comments Absolute Immature Granulocyte (auto (dana t code = Absolute Immature Granulocyte (auto) 0.01 0-0.1 [facility] ClinicsUrine Zpns5350-01-54 09:56:00* Test Item Value Reference Range Interpretation Comments Urine Test (test code = 2106-3) NEGATIVE NEGATIVE [facility] ClinicsUrine Tygd4681-01-48 09:56:00* Test Item Value Reference Range Interpretation Comments Urine Test (test code = 2106-3) NEGATIVE NEGATIVE [facility] ClinicsVitamin B12 Zqwpn6553-25-05 08:03:00* Test Item Value Reference Range Interpretation Comments Vitamin B12 Level (test code = 46911-0) 560 213816 [facility] ClinicsFolate2018-08-23 08:03:00* Test Item Value Reference Range Interpretation Comments Folate (test code = 2284-8) 7.6 7.0-15.4 [facility] ClinicsVitamin B12 Kizaa2456-16-17 08:03:00* Test Item Value Reference Range Interpretation Comments Vitamin B12 Level (test code = 68113-1) 560 213816 [facility] ClinicsFolate2018-08-23 08:03:00* Test Item Value Reference Range Interpretation Comments Folate (test code = 2284-8) 7.6 7.0-15.4 [facility] ClinicsVitamin B12 Qjkfh5326-92-47 08:03:00* Test Item Value Reference Range Interpretation Comments Vitamin B12 Level (test code = 44101-2) 560 213816 [facility] ClinicsFolate2018-08-23 08:03:00* Test Item Value Reference Range Interpretation Comments Folate (test code = 2284-8) 7.6 7.0-15.4 [facility] ClinicsVitamin B12 Mslzn6502-37-99 08:03:00* Test Item Value Reference Range Interpretation Comments Vitamin B12 Level (test code = 74277-2) 511 331-218 [facility] ClinicsFolate2018-08-23 08:03:00* Test Item Value Reference Range Interpretation Comments Folate (test code = 2284-8) 7.6 7.0-15.4 [facility] ClinicsDifferential Total Cells Counted 2018-05-01 07:51:00* Test Item Value Reference Range Interpretation Comments Differential Total Cells Counted (test code = Differen tial Total Cells Counted) 100 [facility] ClinicsNeutrophils % (Manual)2018-05-01 07:51:00 * Test Item Value Reference Range Interpretation Comments Neutrophils % (Manual) (test code = 38991-0) 61 40-74 [facility] ClinicsLymphocytes % (Manual)2018-05-01 07:51:00 * Test Item Value Reference Range Interpretation Comments Lymphocytes % (Manual) (test code = 737-7) 31 19-48 [facility] ClinicsMonocytes % (Manual)2018-05-01 07:51:00* Test Item Value Reference Range Interpretation Comments Monocytes % (Manual) (test code = 744-3) 6 3.4-9.0 [facility] ClinicsEosinophils % (Manual)2018-05-01 07:51:00 * Test Item Value Reference Range Interpretation Comments Eosinophils % (Manual) (test code = 714-6) 1 0-7 [facility] ClinicsMyelocytes %2018-05-01 07:51:00* Test Item Value Reference Range Interpretation Comments Myelocytes % (test code = 749-2) 1 0-0 H [facility] ClinicsPlatelet Vgavxztp8806-49-05 07:51:00* Test Item Value Reference Range Interpretation Comments Platelet Estimate (test code = 96730-9) ADEQUATE [facility] ClinicsPlatelet Morphology Ezeusnj7561-71-88 07:51:00* Test Item Value Reference Range Interpretation Comments Platelet Morphology Comment (test code = 71714-0) NORMAL [facility] ClinicsHypochromasia2018-08-23 07:51:00* Test Item Value Reference Range Interpretation Comments Hypochromasia (test code = 728-6) MODERATE [facility] ClinicsRed Cell Morphology Dwqmuso5020-51-74 07:51:00* Test Item Value Reference Range Interpretation Comments Red Cell Morphology Comment (test code = 6742-1) NORMAL [facility] ClinicsDifferential Total Cells Counted 2018-05-01 07:51:00* Test Item Value Reference Range Interpretation Comments Differential Total Cells Counted (test code = Differen tial Total Cells Counted) 100 [facility] ClinicsNeutrophils % (Manual)2018-05-01 07:51:00 * Test Item Value Reference Range Interpretation Comments Neutrophils % (Manual) (test code = 00978-2) 61 40-74 [facility] ClinicsLymphocytes % (Manual)2018-05-01 07:51:00 * Test Item Value Reference Range Interpretation Comments Lymphocytes % (Manual) (test code = 737-7) 31 19-48 [facility] ClinicsMonocytes % (Manual)2018-05-01 07:51:00* Test Item Value Reference Range Interpretation Comments Monocytes % (Manual) (test code = 744-3) 6 3.4-9.0 [facility] ClinicsEosinophils % (Manual)2018-05-01 07:51:00 * Test Item Value Reference Range Interpretation Comments Eosinophils % (Manual) (test code = 714-6) 1 0-7 [facility]icsMyelocytes %2018-05-01 07:51:00* Test Item Value Reference Range Interpretation Comments Myelocytes % (test code = 749-2) 1 0-0 H [facility] ClinicsPlatelet Xxqpklgy8539-25-46 07:51:00* Test Item Value Reference Range Interpretation Comments Platelet Estimate (test code = 74405-4) ADEQUATE [facility] ClinicsPlatelet Morphology Zxryiyc4614-60-20 07:51:00* Test Item Value Reference Range Interpretation Comments Platelet Morphology Comment (test code = 48216-5) NORMAL [facility]icsHypochromasia2018-08-23 07:51:00* Test Item Value Reference Range Interpretation Comments Hypochromasia (test code = 728-6) MODERATE [facility] ClinicsRed Cell Morphology Rodyeno1363-38-01 07:51:00* Test Item Value Reference Range Interpretation Comments Red Cell Morphology Comment (test code = 6742-1) NORMAL [facility] ClinicsDifferential Total Cells Counted 2018-05-01 07:51:00* Test Item Value Reference Range Interpretation Comments Differential Total Cells Counted (test code = Differbrigid tial Total Cells Counted) 100 [facility]icsNeutrophils % (Manual)2018-05-01 07:51:00 * Test Item Value Reference Range Interpretation Comments Neutrophils % (Manual) (test code = 16855-7) 61 40-74 [facility]icsLymphocytes % (Manual)2018-05-01 07:51:00 * Test Item Value Reference Range Interpretation Comments Lymphocytes % (Manual) (test code = 737-7) 31 19-48 [facility]icsMonocytes % (Manual)2018-05-01 07:51:00* Test Item Value Reference Range Interpretation Comments Monocytes % (Manual) (test code = 744-3) 6 3.4-9.0 [facility]icsEosinophils % (Manual)2018-05-01 07:51:00 * Test Item Value Reference Range Interpretation Comments Eosinophils % (Manual) (test code = 714-6) 1 0-7 [facility]icsMyelocytes %2018-05-01 07:51:00* Test Item Value Reference Range Interpretation Comments Myelocytes % (test code = 749-2) 1 0-0 H [facility] ClinicsPlatelet Pkfdmjah1823-70-53 07:51:00* Test Item Value Reference Range Interpretation Comments Platelet Estimate (test code = 02608-2) ADEQUATE [facility] ClinicsPlatelet Morphology Rozzdsh2200-11-49 07:51:00* Test Item Value Reference Range Interpretation Comments Platelet Morphology Comment (test code = 42121-6) NORMAL [facility]icsHypochromasia2018-08-23 07:51:00* Test Item Value Reference Range Interpretation Comments Hypochromasia (test code = 728-6) MODERATE [facility] ClinicsRed Cell Morphology Qmakthy6120-76-03 07:51:00* Test Item Value Reference Range Interpretation Comments Red Cell Morphology Comment (test code = 6742-1) NORMAL [facility] ClinicsDifferential Total Cells Counted 2018-05-01 07:51:00* Test Item Value Reference Range Interpretation Comments Differential Total Cells Counted (test code = [place] Total Cells Counted) 100 [facility]icsNeutrophils % (Manual)2018-05-01 07:51:00 * Test Item Value Reference Range Interpretation Comments Neutrophils % (Manual) (test code = 85504-7) 61 40-74 [facility] ClinicsLymphocytes % (Manual)2018-05-01 07:51:00 * Test Item Value Reference Range Interpretation Comments Lymphocytes % (Manual) (test code = 737-7) 31 19-48 [facility]icsMonocytes % (Manual)2018-05-01 07:51:00* Test Item Value Reference Range Interpretation Comments Monocytes % (Manual) (test code = 744-3) 6 3.4-9.0 [facility]icsEosinophils % (Manual)2018-05-01 07:51:00 * Test Item Value Reference Range Interpretation Comments Eosinophils % (Manual) (test code = 714-6) 1 0-7 [facility]icsMyelocytes %2018-05-01 07:51:00* Test Item Value Reference Range Interpretation Comments Myelocytes % (test code = 749-2) 1 0-0 H [facility] ClinicsPlatelet Dmmwhbjb2612-66-09 07:51:00* Test Item Value Reference Range Interpretation Comments Platelet Estimate (test code = 85408-5) ADEQUATE [facility] ClinicsPlatelet Morphology Clcjaua9990-57-90 07:51:00* Test Item Value Reference Range Interpretation Comments Platelet Morphology Comment (test code = 42701-9) NORMAL [facility]icsHypochromasia2018-08-23 07:51:00* Test Item Value Reference Range Interpretation Comments Hypochromasia (test code = 728-6) MODERATE [facility] ClinicsRed Cell Morphology Difcwxa8914-99-87 07:51:00* Test Item Value Reference Range Interpretation Comments Red Cell Morphology Comment (test code = 6742-1) NORMAL [facility] ClinicsFerritin2018-08-23 07:50:00* Test Item Value Reference Range Interpretation Comments Ferritin (test code = 2276-4) 203.96 4.63-204.00 [facility] ClinicsFerritin2018-08-23 07:50:00* Test Item Value Reference Range Interpretation Comments Ferritin (test code = 2276-4) 203.96 4.63-204.00 [facility] ClinicsFerritin2018-08-23 07:50:00* Test Item Value Reference Range Interpretation Comments Ferritin (test code = 2276-4) 203.96 4.63-204.00 [facility] ClinicsFerritin2018-08-23 07:50:00* Test Item Value Reference Range Interpretation Comments Ferritin (test code = 2276-4) 203.96 4.63-204.00 [facility]2018-08-23 07:17:00* Test Item Value Reference Range Interpretation Comments Iron Level (test code = 2498-4) 15 50-170 L [facility] ClinicsTotal Iron Binding Utgxhkiq5562-21-75 07:17:00* Test Item Value Reference Range Interpretation Comments Total Iron Binding Capacity (test code = 2500-7) 221 261-4 78 L [facility] ClinicsPercent Iron Kfsgwofnel0389-38-61 07:17:00* Test Item Value Reference Range Interpretation Comments Percent Iron Saturation (test code = 2502-3) 7 15-50 L [facility] ClinicsTransferrin2018-08-23 07:17:00* Test Item Value Reference Range Interpretation Comments Transferrin (test code = 3034-6) 158 180-382 L [facility]2018-08-23 07:17:00* Test Item Value Reference Range Interpretation Comments Iron Level (test code = 2498-4) 15 50-170 L [facility] ClinicsTotal Iron Binding Qzlilbmc2584-59-04 07:17:00* Test Item Value Reference Range Interpretation Comments Total Iron Binding Capacity (test code = 2500-7) 221 261-4 78 L [facility]icsPerprom[facility] Iron Eaoeohqhwc6921-73-30 07:17:00* Test Item Value Reference Range Interpretation Comments Percent Iron Saturation (test code = 2502-3) 7 15-50 L [facility] ClinicsTransferrin2018-08-23 07:17:00* Test Item Value Reference Range Interpretation Comments Transferrin (test code = 3034-6) 158 180-382 L [facility]2018-08-23 07:17:00* Test Item Value Reference Range Interpretation Comments Iron Level (test code = 2498-4) 15 50-170 L [facility] Iron Binding Ptkxwmoz0753-70-69 07:17:00* Test Item Value Reference Range Interpretation Comments Total Iron Binding Capacity (test code = 2500-7) 221 261-4 78 L [facility] Iron Mqozmqzwmo2392-45-94 07:17:00* Test Item Value Reference Range Interpretation Comments Percent Iron Saturation (test code = 2502-3) 7 15-50 L [facility] ClinicsTransferrin2018-08-23 07:17:00* Test Item Value Reference Range Interpretation Comments Transferrin (test code = 3034-6) 158 180-382 L [facility]2018-08-23 07:17:00* Test Item Value Reference Range Interpretation Comments Iron Level (test code = 2498-4) 15 50-170 L [facility] Iron Binding Ibflvwww7622-12-50 07:17:00* Test Item Value Reference Range Interpretation Comments Total Iron Binding Capacity (test code = 2500-7) 221 261-4 78 L [facility] Iron Vskbxhrrpw6479-43-93 07:17:00* Test Item Value Reference Range Interpretation Comments Percent Iron Saturation (test code = 2502-3) 7 15-50 L [facility] ClinicsTransferrin2018-08-23 07:17:00* Test Item Value Reference Range Interpretation Comments Transferrin (test code = 3034-6) 158 180-382 L [facility] ClinicsThyroid Stimulating Hormone (TSH) 2018-04-29 19:02:00* Test Item Value Reference Range Interpretation Comments Thyroid Stimulating Hormone (TSH) (test code = 84730-7) 2.675 0.350-4.940 [facility] ClinicsAnisocytosis2018-08-21 07:29:00* Test Item Value Reference Range Interpretation Comments Anisocytosis (test code = 702-1) SLIGHT [facility] ClinicsAnisocytosis2018-08-21 07:29:00* Test Item Value Reference Range Interpretation Comments Anisocytosis (test code = 702-1) SLIGHT [facility]icsAnisocytosis2018-08-21 07:29:00* Test Item Value Reference Range Interpretation Comments Anisocytosis (test code = 702-1) SLIGHT [facility]icsAnisocytosis2018-08-21 07:29:00* Test Item Value Reference Range Interpretation Comments Anisocytosis (test code = 702-1) SLIGHT [facility] ClinicsTotal Vdeaadgbx9965-82-89 07:27:00* Test Item Value Reference Range Interpretation Comments Total Bilirubin (test code = 1975-2) 0.4 0.2-1.2 [facility] ClinicsAspartate Amino Transf (AST/SGOT) 2018-04-29 07:27:00* Test Item Value Reference Range Interpretation Comments Aspartate Amino Transf (AST/SGOT) (test code = Aspartate Amino Transf (AST/SGOT)) 20 5-34 [facility] ClinicsAlanine Aminotransferase (ALT/SGPT) 2018-04-29 07:27:00* Test Item Value Reference Range Interpretation Comments Alanine Aminotransferase (ALT/SGPT) (test code = 1742-6) 10 0-55 [facility] ClinicsTotal Ojphvfk4815-02-82 07:27:00* Test Item Value Reference Range Interpretation Comments Total Protein (test code = 2885-2) 8.8 6.5-8.1 H [facility] ClinicsAlbumin2018-08-21 07:27:00* Test Item Value Reference Range Interpretation Comments Albumin (test code = 1751-7) 3.0 3.5-5.0 L [facility] ClinicsGlobulin2018-08-21 07:27:00* Test Item Value Reference Range Interpretation Comments Globulin (test code = 41863-7) 5.8 2.3-3.5 H [facility] ClinicsAlbumin/Globulin Qzsoj5241-36-22 07:27:00 * Test Item Value Reference Range Interpretation Comments Albumin/Globulin Ratio (test code = 1759-0) 0.5 0.8-2.0 L [facility] ClinicsAlkaline Hhaijtvmbqv0202-22-83 07:27:00* Test Item Value Reference Range Interpretation Comments Alkaline Phosphatase (test code = 6768-6) 14 40-150 L [facility] ClinicsTriglycerides Bndsc0147-64-18 07:27:00* Test Item Value Reference Range Interpretation Comments Triglycerides Level (test code = 2571-8) 65 0-149 [facility] ClinicsCholesterol Xings3680-59-92 07:27:00* Test Item Value Reference Range Interpretation Comments Cholesterol Level (test code = 2093-3) 99 0-199 Less than 200 mg/dL Low Wxiq965 - 239 mg/dL Borderline Irvt371 m g/dl and greater High Risk [facility] ClinicsLDL Oirosnzvkzk8962-07-63 07:27:00* Test Item Value Reference Range Interpretation Comments LDL Cholesterol (test code = 2089-1) 57 60-130 L [facility] ClinicsHDL Rxbcdruabxn7619-40-98 07:27:00* Test Item Value Reference Range Interpretation Comments HDL Cholesterol (test code = 2085-9) 29 40-60 L [facility] ClinicsCholesterol/HDL Aoqpb6293-24-55 07:27:00 * Test Item Value Reference Range Interpretation Comments Cholesterol/HDL Ratio (test code = 9830-1) 3.4 3.0-3.6 [facility] ClinicsTriglycerides Ptifl8279-97-80 07:27:00* Test Item Value Reference Range Interpretation Comments Triglycerides Level (test code = 2571-8) 65 0-149 [facility] ClinicsCholesterol Zazan6437-89-53 07:27:00* Test Item Value Reference Range Interpretation Comments Cholesterol Level (test code = 2093-3) 99 0-199 Less than 200 mg/dL Low Tjlm022 - 239 mg/dL Borderline Rjsu541 m g/dl and greater High Risk [facility] ClinicsLDL Jhbxgnqfcbe2210-98-14 07:27:00* Test Item Value Reference Range Interpretation Comments LDL Cholesterol (test code = 2089-1) 57 60-130 L [facility] Hyfgrqrinba7366-50-86 07:27:00* Test Item Value Reference Range Interpretation Comments HDL Cholesterol (test code = 2085-9) 29 40-60 L [facility] ClinicsCholesterol/HDL Dohiu4242-69-90 07:27:00 * Test Item Value Reference Range Interpretation Comments Cholesterol/HDL Ratio (test code = 9830-1) 3.4 3.0-3.6 [facility] ClinicsTriglycerides Wkmlq8463-26-09 07:27:00* Test Item Value Reference Range Interpretation Comments Triglycerides Level (test code = 2571-8) 65 0-149 [facility] ClinicsCholesterol Axnot8552-94-45 07:27:00* Test Item Value Reference Range Interpretation Comments Cholesterol Level (test code = 2093-3) 99 0-199 Less than 200 mg/dL Low Cpef126 - 239 mg/dL Borderline Jiym649 m g/dl and greater High Risk [facility] ClinicsLDL Dhfgrszfcab9391-24-59 07:27:00* Test Item Value Reference Range Interpretation Comments LDL Cholesterol (test code = 2089-1) 57 60-130 L [facility] Nwchgkywtth1840-60-91 07:27:00* Test Item Value Reference Range Interpretation Comments HDL Cholesterol (test code = 2085-9) 29 40-60 L [facility] ClinicsCholesterol/HDL Goyys1911-96-83 07:27:00 * Test Item Value Reference Range Interpretation Comments Cholesterol/HDL Ratio (test code = 9830-1) 3.4 3.0-3.6 [facility] ClinicsTriglycerides Azhbx2107-61-86 07:27:00* Test Item Value Reference Range Interpretation Comments Triglycerides Level (test code = 2571-8) 65 0-149 [facility] ClinicsCholesterol Cimdd8324-07-15 07:27:00* Test Item Value Reference Range Interpretation Comments Cholesterol Level (test code = 2093-3) 99 0-199 Less than 200 mg/dL Low Dtya153 - 239 mg/dL Borderline Hjeb369 m g/dl and greater High Risk [facility] ClinicsLDL Owjstvfeual6029-14-86 07:27:00* Test Item Value Reference Range Interpretation Comments LDL Cholesterol (test code = 2089-1) 57 60-130 L [facility] ClinicsHDL Ghnvpmspcxs5571-13-60 07:27:00* Test Item Value Reference Range Interpretation Comments HDL Cholesterol (test code = 2085-9) 29 40-60 L [facility] ClinicsCholesterol/HDL Yqafx4548-66-88 07:27:00 * Test Item Value Reference Range Interpretation Comments Cholesterol/HDL Ratio (test code = 9830-1) 3.4 3.0-3.6 [facility] ClinicsHemoglobin A1c Wghkyam6511-98-49 07:26:00 * Test Item Value Reference Range Interpretation Comments Hemoglobin A1c Percent (test code = Hemoglobin A1c Percent) 5.0 4.0-7.0 [facility] ClinicsHemoglobin A1c Qkcfszo9176-78-31 07:26:00 * Test Item Value Reference Range Interpretation Comments Hemoglobin A1c Percent (test code = Hemoglobin A1c Percent) 5.0 4.0-7.0 [facility] ClinicsHemoglobin A1c Vxidxwi1113-48-52 07:26:00 * Test Item Value Reference Range Interpretation Comments Hemoglobin A1c Percent (test code = Hemoglobin A1c Percent) 5.0 4.0-7.0 [facility] ClinicsHemoglobin A1c Bacvphw3123-38-53 07:26:00 * Test Item Value Reference Range Interpretation Comments Hemoglobin A1c Percent (test code = Hemoglobin A1c Percent) 5.0 4.0-7.0 [facility] ClinicsProthrombin Shrk3838-63-39 18:29:00* Test Item Value Reference Range Interpretation Comments Prothrombin Time (test code = 5902-2) 14.4 11.9-14.5 [facility] ClinicsProthromb Time International Ratio 2018-04-28 18:29:00* Test Item Value Reference Range Interpretation Comments Prothromb Time International Ratio (test code = 6301-6) 1.21 Oral Anticoagulant Therapy INR Values:1. Low Intensity Therapy 1.5 - 2.02 . Moderate Intensity Therapy 2.0 - 3.03. High Intensity Therapy(1) 2.5 - 3. 54. High Intensity Therapy(2) 3.0 - 4.05. Panic Value INR > 5.0 [facility] ClinicsActivated Partial Thromboplast Time 2018-04-28 18:29:00* Test Item Value Reference Range Interpretation Comments Activated Partial Thromboplast Time (test code = 70991-2) 26.6 23.8-35.5 [facility] ClinicsProthrombin Atuu7023-33-69 18:29:00* Test Item Value Reference Range Interpretation Comments Prothrombin Time (test code = 5902-2) 14.4 11.9-14.5 [facility] ClinicsProthromb Time International Ratio 2018-04-28 18:29:00* Test Item Value Reference Range Interpretation Comments Prothromb Time International Ratio (test code = 6301-6) 1.21 Oral Anticoagulant Therapy INR Values:1. Low Intensity Therapy 1.5 - 2.02 . Moderate Intensity Therapy 2.0 - 3.03. High Intensity Therapy(1) 2.5 - 3. 54. High Intensity Therapy(2) 3.0 - 4.05. Panic Value INR > 5.0 [facility] ClinicsActivated Partial Thromboplast Time 2018-04-28 18:29:00* Test Item Value Reference Range Interpretation Comments Activated Partial Thromboplast Time (test code = 45478-2) 26.6 23.8-35.5 [facility] ClinicsProthrombin Gyfr1886-74-99 18:29:00* Test Item Value Reference Range Interpretation Comments Prothrombin Time (test code = 5902-2) 14.4 11.9-14.5 [facility] ClinicsProthromb Time International Ratio 2018-04-28 18:29:00* Test Item Value Reference Range Interpretation Comments Prothromb Time International Ratio (test code = 6301-6) 1.21 Oral Anticoagulant Therapy INR Values:1. Low Intensity Therapy 1.5 - 2.02 . Moderate Intensity Therapy 2.0 - 3.03. High Intensity Therapy(1) 2.5 - 3. 54. High Intensity Therapy(2) 3.0 - 4.05. Panic Value INR > 5.0 [facility] ClinicsActivated Partial Thromboplast Time 2018-04-28 18:29:00* Test Item Value Reference Range Interpretation Comments Activated Partial Thromboplast Time (test code = 25289-9) 26.6 23.8-35.5 [facility]
[2020-05-24 17:05] LABS: ALANINE AMINOTRANSFERASE 24 IU/L (0-55); ALBUMIN 3.3 g/dL (3.5-5.0); ALBUMIN/GLOBULIN RATIO 0.7 (0.8-2.0); ALKALINE PHOSPHATASE 23 IU/L (40-150); ANION GAP 13.1 mmol/L (8-16); BLOOD UREA NITROGEN 12 mg/dL (7-26); BUN/CREATININE RATIO 11 (6-25); CALCIUM 8.2 mg/dL (8.4-10.2); CARBON DIOXIDE 24 mmol/L (22-29); CHLORIDE 105 mmol/L (98-107); CREATININE, SERUM 1.06 mg/dL (0.57-1.11); EST GLOMERULAR FILTRATION RATE > 60 ML/MIN (60-); GLUCOSE 98 mg/dL (74-118); POTASSIUM 4.1 mmol/L (3.5-5.1); SODIUM 138 mmol/L (136-145)
--- NOTE | 2020-05-24 17:21 | NUR ---
consent for blood transfusion signed and placed into chart.
--- NOTE | 2020-05-24 17:25 | Emergency Department Note ---
History of Present Illnes History of Present Illness Chief Complaint: General Medicine Complaints History of Present Illness This is a 29 year old female with recent admit for ITP. She followed up with Dr Busch, Infrastructure Design Engineer today and found to have platelet count of 1, sent here. Patient without complaints except mild headache yesterday, no pain currently. She is currently on menstrual period but no other sites of bleeding - no epistaxis, no GI bleeding/melena, no bleeding gums with brushing teeth Historian: Patient Arrival Mode: Car Registered Diet Technician Required: No Onset (how long ago): day(s) Radiation: Reports non-radiation Severity: severe Onset quality: sudden Progression: worsening Chronicity: recurrent Context: Reports recent illness Relieving factors: none Exacerbating factors: none Associated symptoms: Reports denies other symptoms Past Medical/Family History Physician Review I have reviewed the patient's past medical and family history. Any updates have been documented here. Past Medical History Recent Fever: No Clinical Suspicion of Infectio: No New/Unexplained Change in Ment: No Past Medical History: Hypertension Other Medical History: ITP Past Surgical History: None Other Surgery: (L) ovary removed Social History Smoking Cessation: Never Smoker Counseling Performed: No Alcohol Use: None Any Illegal Drug Use: No TB Exposure/Symptoms: No Physically hurt or threatened: No Family History Family history of heart diseas: No Other Last Tetanus: UNKNOWN Any Pre-Existing Lines (PICC,: No Review of Systems Review of Systems Constitutional: Reports no symptoms EENTM: Reports no symptoms Cardiovascular: Reports no symptoms Respiratory: Reports no symptoms Gastrointestinal: Reports no symptoms Genitourinary: Reports no symptoms Musculoskeletal: Reports no symptoms Integumentary: Reports no symptoms Neurological: Reports no symptoms Psychological: Reports no symptoms Endocrine: Reports no symptoms Hematological/Lymphatic: Reports no symptoms Physical Exam Related Data Allergies: Coded Allergies: levofloxacin (Verified Allergy, Severe, THROAT SWELLS, 04/28/18) Triage Vital Signs Vital Signs Date Time Temp Pulse Resp B/P (MAP) Pulse Ox O2 Delivery O2 Flow Rate FiO2 05/24/20 16:18 98.4 120 20 152/95 100 Room Air Vital signs reviewed: Yes Physical Exam CONSTITUTIONAL Constitutional: Present well-developed, Present well-nourished HENT HENT: Present normocephalic, Present atraumatic, Present oropharynx clear/moist, Present nose normal HENT L/R: Present left ext ear normal, Present right ext ear normal EYES Eyes: Reports PERRL, Reports conjunctivae normal NECK Neck: Present ROM normal PULMONARY Pulmonary: Present effort normal, Present breath sounds normal CARDIOVASCULAR Cardiovascular: Present regular rhythm, Present heart sounds normal, Present capillary refill normal, Present tachycardia GASTROINTESTINAL Abdominal: Present soft, Present nontender, Present bowel sounds normal GENITOURINARY Genitourinary: Present exam deferred SKIN Skin: Present warm, Present dry MUSCULOSKELETAL Musculoskeletal: Present ROM normal NEUROLOGICAL Neurological: Present alert, Present oriented x 3, Present no gross motor or sensory deficits PSYCHOLOGICAL Psychological: Present mood/affect normal, Present judgement normal Results Laboratory Result Diagram: 05/24/20 1630 Laboratory Laboratory Tests Test 05/24/20 16:30 White Blood Count 3.80 x10e3/uL (4.8-10.8) Red Blood Count 2.33 x10e6/uL (3.6-5.1) Hemoglobin 6.7 g/dL (12.0-16.0) Hematocrit 21.2 % (34.2-44.1) Mean Corpuscular Volume 91.0 fL (81-99) Mean Corpuscular Hemoglobin 28.8 pg (28-32) Mean Corpuscular Hemoglobin Concent 31.6 g/dL (31-35) Red Cell Distribution Width 16.0 % (11.7-14.4) Platelet Count 4 x10e3/uL (140-360) Neutrophils (%) (Auto) 61.0 % (38.7-80.0) Lymphocytes (%) (Auto) 32.1 % (18.0-39.1) Monocytes (%) (Auto) 6.1 % (4.4-11.3) Eosinophils (%) (Auto) 0.0 % (0.0-6.0) Basophils (%) (Auto) 0.3 % (0.0-1.0) Neutrophils # (Auto) 2.3 (2.1-6.9) Lymphocytes # (Auto) 1.2 (1.0-3.2) Monocytes # (Auto) 0.2 (0.2-0.8) Eosinophils # (Auto) 0.0 (0.0-0.4) Basophils # (Auto) 0.0 (0.0-0.1) Absolute Immature Granulocyte (auto 0.02 x10e3/uL (0-0.1) Prothrombin Time 13.2 seconds (11.9-14.5) Prothromb Time International Ratio 0.95 Activated Partial Thromboplast Time 23.1 seconds (23.8-35.5) Lab results reviewed: Yes Imaging Imaging results reviewed: Yes Critical Care Time Total Critical Care Time (min): 30 Critical care time exclusive o: separately billable procedures Critcal care necessary due to: circulatory failure Critcal care time spent by me: discussion w consultants, discussion w primary provider, order/perform tx or interventions, order/review laboratory studies, re-evaluation of patient condition Assessment & Plan Medical Decision Making MDM pt with h/o recent ITP treated with steroids and IVIG in-hospital, had platelet count >200 when she went home last week, saw hematology today and plt was 1, no reported bleeding from any site except currently on period, but she is tachycardic on exam - check CBC, CHEM'S, PT, PTT, ANC CT BRAIN (PT HAD HEADACHE YESTERDAY, NO QUIROZ CURRENTLY) - EVAL FOR THROMBOCYTOPENIA, ANEMIA, TTP, cerebral bleeding Reassessment Reassessment Dr Busch came to ER, wants steroids now, she wrote orders for IVIG and repeat doses of steroids for inpatient. Also spoke with Dr Love for admission Assessment & Plan Final Impression: (1) Anemia (2) Idiopathic thrombocytopenic purpura (ITP) Depart Disposition: ADMITTED Last Vital Signs Date Time Temp Pulse Resp B/P (MAP) Pulse Ox O2 Delivery O2 Flow Rate FiO2 05/24/20 16:18 98.4 120 20 152/95 100 Room Air Home Meds Active Scripts Ferrous Sulfate (FERROUS SULFATE) 325 Mg Tablet, 325 MG PO Q12H for 30 Days Prov:KISHORE LOVE MD 05/16/20 Labetalol Hcl (LABETALOL HCL) 100 Mg Tablet, 200 MG PO Q12HR for 30 Days Prov:KISHORE LOVE MD 05/03/18 Reported Medications Nifedipine (NIFEDIPINE ER) 30 Mg Tab.er.24, 90 MG PO DAILY 05/11/20 Medications in the ED Methylprednisolone Sodium Succinate 125 mg ONCE STAT IV ; Start 05/24/20 at 16:34; Stop 05/24/20 at 16:36; Status DC Ondansetron HCl 4 mg Q4H PRN IV NAUSEA AND VOMITING; Start 05/24/20 at 16:45; Stop 06/23/20 at 16:44 JOSE MANUEL PINTO MD May 24, 2020 17:25
--- NOTE | 2020-05-24 17:37 | Diagnostic Imaging Report ---
Examination: CT BRAIN WO CONTRAST History:Headaches. Comparison studies:None Technique: Axial images were obtained from the skull base to the vertex. Coronal and sagittal images reconstructed from the axial data. Dose modulation, iterative reconstruction, and/or weight based adjustment of the mA/kV was utilized to reduce the radiation dose to as low as reasonably achievable. Intravenous contrast: None Findings: Scalp: No abnormalities. Bones: No fractures, blastic or lytic lesions. Brain sulci: Appropriate for age. Ventricles: Slitlike lateral ventricles. No hydrocephalus. Extra-axial space: Effacement of the suprasellar cistern. Parenchyma: No masses, hemorrhage, or acute or chronic cortical based vascular insults.. Sellar/suprasellar region: CSF filled. Craniocervical junction: Cerebellar tonsillar ectopia. Incidental findings: Tortuosity of the bilateral optic nerves. Impression: No acute intracranial abnormalities. Findings as described are most consistent with idiopathic intracranial hypertension. Signed by: Dr. Jennifer Pat M.D. on 05/24/2020 5:34 PM
--- NOTE | 2020-05-24 17:50 | NUR ---
RECEIVED PATIENT FROM ER. PATIENT A/O X3, VSS STABLE, NO SIGNS OF DISTRESS. ORIENTED PATIENT TO ROOM AND CALL LIGHT. CALL LIGHT IN REACH WILL CONTINUE TO MONITOR PATIENT.
[2020-05-24] MEDS: IMMUNE GLOBULIN IV SCH (18:00)
[2020-05-24 18:06] VITALS: BP 122/68
[2020-05-24 18:08] VITALS: BP 122/68
--- NOTE | 2020-05-24 18:36 | NUR ---
CONSULT CALLED FOR DR. BRYANT
--- NOTE | 2020-05-24 18:36 | NUR ---
H&P PRIMARY CARE PHYSICIAN: Stephen Crocker MD, PhD. CHIEF COMPLAINT: low blood counts HISTORY OF PRESENT ILLNESS: This is a 29-year-old woman with hx B/L axillary LAD, recently admitted for bleeding gums and pancytopenia with Plts 1000, rec'd IVIG and IV steroids, now retesting in clinic found to have pancytopenia again, sent to hospital for mgmt. Pt is symptom free, no bleeding; Plts counts 4000, Hb 6 range. no QUIROZ. PAST MEDICAL HISTORY: 1.Iron-deficiency Anemia 2.HTN 3.GERD 4.Anxiety d/o 5.Insomnia 6.Rheumatoid arthritis 7.Severe Obesity 8.BMI 42 9.Constipation 10.Mild depression 11.Pelvic LAD 12.Mediastinal LAD 13.Axillary LAD 14.Left ovarian torsion 15.Pancytopenia 16.B/L axillary and Mediastinal LAD and Pelvic LAD 17.Hyponatremia 18.RA RESOLVED Blurred visionRESOLVED RESOLVED Intractable Epistaxis.RESOLVED RESOLVED - had a miscarriage in 02/2020 RESOLVED RSOLVED nausea RESOLVED Resolved Bleeding gums Past Surgical History: 2 C- Sections (1512-0821); Nose Surgery (2017); Blood Transfusion (2017) PAST SURGICAL HISTORY: . ALLERGIES: PER ELECTRONIC MEDICAL RECORD. FAMILY/SOCIAL HISTORY: The patient is . She has 2 children. No alcohol, illicits or cigarettes. MEDICATIONS: Per electronic medical record. REVIEW OF SYSTEMS: Denies any dizziness, chest pain, fever, chills, sweats, nausea, vomiting, diarrhea, headache. PHYSICAL EXAMINATION VITAL SIGNS: Have been reviewed. GENERAL: A tired-appearing woman resting in bed. HEENT: Anicteric. CARDIOVASCULAR: Normal S1 and S2. LUNGS: mod bs ABDOMEN: mildly tender left pelvic region EXTREMITIES: No edema or calf tenderness. NEUROLOGICAL: Alert and oriented times 3. She moves all extremities. SKIN: Dry. PSYCHIATRIC: Normal affect. LABS: Reviewed. MEDICATIONS: Reviewed. ASSESSMENT: 29yoF Pancytopenia- IVIG; will need steroids for home use. Hx B/L axillary and Mediastinal LAD and Pelvic LAD- check CT chest/abd/pelvis; Had benign Bx in past; Had Oncological w-up in past. Severe Obesity- hba1c 4.9 in May BMI 43- as above RA- contributory to pancytopenia. steroids; outpt mgmt. Prop: lovenox; pepcid dispo: f/u studies; check CBC later today; Stephen Crocker MD, PhD.
[2020-05-24] MEDS: FERROUS SULFATE 325 MG TAB PO SCH (18:45)
--- NOTE | 2020-05-24 19:27 | NUR ---
received pt in bed awake a/o x4. No c/o no s/sx of acute distress noted. Bed in low and locked position with call saleem and personal items within reach. at bedside of pt. Will cont to sat.
[2020-05-24 20:00] VITALS: BP 126/77
[2020-05-24 21:00] VITALS: BP 126/77
[2020-05-24] MEDS: LABETALOL HCL 100 MG TAB PO SCH (21:00)
[2020-05-24 21:18] LABS: AMPHETAMINES SCREEN,URINE NEGATIVE (NEGATIVE); BENZODIAZEPINES SCREEN,URINE NEGATIVE (NEGATIVE); PHENCYCLIDINE SCREEN,URINE NEGATIVE (NEGATIVE)
[2020-05-25] VITALS (9 sets, daily range): BP systolic 94–126; BP diastolic 40–78
[2020-05-25] MEDS ORDERED: SODIUM CHLORIDE 0.9% 250ML 250 ML ONE (03:50)
[2020-05-25 05:00] LABS: BASOPHILS % 0.2 % (0.0-1.0); LYMPHOCYTES # (AUTO) 0.6 (1.0-3.2); LYMPHOCYTES % 13.3 % (18.0-39.1); MEAN CORPUSCULAR HEMOGLOBIN 28.5 pg (28-32); MEAN CORPUSCULAR HGB CONC 31.3 g/dL (31-35); MONOCYTES # (AUTO) 0.1 (0.2-0.8); MONOCYTES % 1.7 % (4.4-11.3); NEUTROPHILS # (AUTO) 4.1 (2.1-6.9); NEUTROPHILS % 84.4 % (38.7-80.0); RED BLOOD COUNT 2.21 x10e6/uL (3.6-5.1); RED CELL DISTRIBUTION WIDTH 15.9 % (11.7-14.4)
[2020-05-25 05:02] LABS: HEMATOCRIT 20.1 % (34.2-44.1); HEMOGLOBIN 6.3 g/dL (12.0-16.0); PLATELET COUNT 2 x10e3/uL (140-360)
[2020-05-25 05:15] LABS: ALANINE AMINOTRANSFERASE 23 IU/L (0-55); ALBUMIN 3.1 g/dL (3.5-5.0); ALBUMIN/GLOBULIN RATIO 0.6 (0.8-2.0); ALKALINE PHOSPHATASE 22 IU/L (40-150); ANION GAP 12.3 mmol/L (8-16); BLOOD UREA NITROGEN 13 mg/dL (7-26); BUN/CREATININE RATIO 13 (6-25); CALCIUM 8.3 mg/dL (8.4-10.2); CARBON DIOXIDE 21 mmol/L (22-29); CHLORIDE 106 mmol/L (98-107); CREATININE, SERUM 0.97 mg/dL (0.57-1.11); EST GLOMERULAR FILTRATION RATE > 60 ML/MIN (60-); GLUCOSE 194 mg/dL (74-118); POTASSIUM 4.3 mmol/L (3.5-5.1); SODIUM 135 mmol/L (136-145)
--- NOTE | 2020-05-25 06:25 | NUR ---
IM- progress note O/N see below REVIEW OF SYSTEMS: Denies any dizziness, chest pain, fever, chills, sweats, nausea, vomiting, diarrhea, headache. PHYSICAL EXAMINATION VITAL SIGNS: Have been reviewed. GENERAL: A tired-appearing woman resting in bed. HEENT: Anicteric. CARDIOVASCULAR: Normal S1 and S2. LUNGS: mod bs ABDOMEN: mildly tender left pelvic region EXTREMITIES: No edema or calf tenderness. NEUROLOGICAL: Alert and oriented times 3. She moves all extremities. SKIN: Dry. PSYCHIATRIC: Normal affect. LABS: Reviewed. MEDICATIONS: Reviewed. ASSESSMENT: 29yoF Pancytopenia- IVIG; will need steroids for home use. Hx B/L axillary and Mediastinal LAD and Pelvic LAD- check CT chest/abd/pelvis; Had benign Bx in past; Had Oncological w-up in past. Severe Obesity- hba1c 4.9 in May BMI 43- as above RA- contributory to pancytopenia. steroids; outpt mgmt. Prop: lovenox; pepcid dispo: f/u studies; check CBC later today; 9-16 f/u blood counts; continue IVIG. Plan for home steroids. Stephen Crocker MD, PhD.
[2020-05-25] MEDS: FERROUS SULFATE 325 MG TAB PO SCH ×2 (06:45→18:03)
--- NOTE | 2020-05-25 07:05 | NUR ---
Critical hbg/hct and plt count noted, pt awaiting blood transfusion pending release from Lab
--- NOTE | 2020-05-25 07:08 | NUR ---
spoke with Aris from blood bank in Lab, pt has antibodies in blood, [facility] having difficulty in finding blood and will continue to search, will notify .
--- NOTE | 2020-05-25 07:12 | NUR ---
notified Dr Crocker re:delay in receiving blood due to antibodies difficult to find. no new orders at this time
--- NOTE | 2020-05-25 07:48 | NUR ---
spoke with Dr. Lowry re: blood delay, [facility] unable to find blood informed of pts hgb 6.3 and plts 2, no further orders given at this time
[2020-05-25] MEDS: METHYLPREDNISOLONE SOD SUCC 40 MG/ML VIAL 1ML IV SCH ×2 (08:59→21:19)
[2020-05-25] MEDS: LABETALOL HCL 100 MG TAB PO SCH ×2 (09:00→21:00)
[2020-05-25] MEDS: NIFEDIPINE CR 30 MG TAB PO SCH (09:00)
[2020-05-25] MEDS: IMMUNE GLOBULIN IV SCH ×3 (09:45→19:00)
[2020-05-25] MEDS ORDERED: SODIUM FERRIC GLUCONATE COMPLX 125 MG in SODIUM CHLORIDE 0.9% 100 ML 100 ML IV ONE (10:00)
[2020-05-25 10:18] LABS: FERRITIN 432.66 ng/mL (4.63-204.00)
[2020-05-25 15:53] LABS: LYMPHOCYTES # (AUTO) 0.7 (1.0-3.2); LYMPHOCYTES % 11.8 % (18.0-39.1); MEAN CORPUSCULAR HEMOGLOBIN 28.9 pg (28-32); MEAN CORPUSCULAR HGB CONC 31.8 g/dL (31-35); MONOCYTES # (AUTO) 0.2 (0.2-0.8); MONOCYTES % 2.6 % (4.4-11.3); NEUTROPHILS % 84.7 % (38.7-80.0); RED BLOOD COUNT 2.11 x10e6/uL (3.6-5.1)
[2020-05-25 15:57] LABS: HEMATOCRIT 19.2 % (34.2-44.1); HEMOGLOBIN 6.1 g/dL (12.0-16.0); PLATELET COUNT 15 x10e3/uL (140-360)
--- NOTE | 2020-05-25 16:15 | NUR ---
DR. HAILE ONCOLOGIST AT BEDSIDE INFORMED OF CBC RESULTS
--- NOTE | 2020-05-25 18:00 | NUR ---
2ND DOSE OF IG STARTED PER ORDERED ( 1ST BOTTLE ADMINISTERED,) PT TO RECEIVE 2 MORE BOTTLES TONIGHT. NO SS OF DISTRESS NOTED, WILL CONTINUE TO MONITOR
[2020-05-25] MEDS: EPOETIN ALFA-EPBX 10,000 UNIT/ML VIAL SC SCH (18:13)
--- NOTE | 2020-05-25 19:54 | NUR ---
2ND DOSE, SECOND BOTTLE OF IG STARTED AT THIS TIME. PATIENT TOLERATING WELL.
--- NOTE | 2020-05-25 21:40 | NUR ---
LAST BOTTLE OF 2ND DOSE OF IG STARTED AT THIS TIME. PATIENT TOLERATING WELL. WILL CONTINUE TO MONITOR.
[2020-05-26 04:12] VITALS: BP 102/54
--- NOTE | 2020-05-26 04:54 | NUR ---
IM- progress note O/N see below REVIEW OF SYSTEMS: Denies any dizziness, chest pain, fever, chills, sweats, nausea, vomiting, diarrhea, headache. PHYSICAL EXAMINATION VITAL SIGNS: Have been reviewed. GENERAL: A tired-appearing woman resting in bed. HEENT: Anicteric. CARDIOVASCULAR: Normal S1 and S2. LUNGS: mod bs ABDOMEN: mildly tender left pelvic region EXTREMITIES: No edema or calf tenderness. NEUROLOGICAL: Alert and oriented times 3. She moves all extremities. SKIN: Dry. PSYCHIATRIC: Normal affect. LABS: Reviewed. MEDICATIONS: Reviewed. ASSESSMENT: 29yoF Pancytopenia- IVIG; will need steroids for home use. Hx B/L axillary and Mediastinal LAD and Pelvic LAD- check CT chest/abd/pelvis; Had benign Bx in past; Had Oncological w-up in past. Severe Obesity- hba1c 4.9 in May BMI 43- as above RA- contributory to pancytopenia. steroids; outpt mgmt. Prop: lovenox; pepcid dispo: f/u studies; check CBC later today; 9-16 f/u blood counts; continue IVIG. Plan for home steroids. 917 counts improving; D#3 of IVIG; also on IV steroids; f/u neuro recs regarding abnormal findings on head CT. Awaiting PRBC transfusion after further crossmatching. Stephen Crocker MD, PhD.
[2020-05-26 05:13] LABS: BASOPHILS % 0.2 % (0.0-1.0); MEAN CORPUSCULAR HEMOGLOBIN 28.4 pg (28-32); MEAN CORPUSCULAR HGB CONC 30.9 g/dL (31-35); MONOCYTES # (AUTO) 0.2 (0.2-0.8); NEUTROPHILS # (AUTO) 6.7 (2.1-6.9); PLATELET COUNT 66 x10e3/uL (140-360); RED BLOOD COUNT 2.25 x10e6/uL (3.6-5.1); RED CELL DISTRIBUTION WIDTH 16.5 % (11.7-14.4)
[2020-05-26 05:21] LABS: HEMATOCRIT 20.7 % (34.2-44.1); HEMOGLOBIN 6.4 g/dL (12.0-16.0)
--- NOTE | 2020-05-26 06:00 | NUR ---
SPOKE WITH MD LOVE ABOUT PATIENT'S BLOOD COUNTS, NO NEW ORDERS.
[2020-05-26] MEDS: FERROUS SULFATE 325 MG TAB PO SCH ×2 (07:12→17:34)
[2020-05-26 07:21] VITALS: BP 98/44
[2020-05-26 08:00] VITALS: BP 98/44
[2020-05-26] MEDS: NIFEDIPINE CR 30 MG TAB PO SCH (08:07)
[2020-05-26] MEDS: METHYLPREDNISOLONE SOD SUCC 40 MG/ML VIAL 1ML IV SCH ×2 (08:27→22:48)
[2020-05-26] MEDS: LABETALOL HCL 100 MG TAB PO SCH ×2 (08:27→22:49)
[2020-05-26] MEDS ORDERED: SODIUM FERRIC GLUCONATE COMPLX 125 MG in SODIUM CHLORIDE 0.9% 100 ML 100 ML IV ONE (11:30)
[2020-05-26 11:46] VITALS: BP 98/56
[2020-05-26 15:15] VITALS: BP 114/64
[2020-05-26] MEDS: TOPIRAMATE 25 MG TAB PO SCH (17:16)
[2020-05-26] MEDS: EPOETIN ALFA-EPBX 10,000 UNIT/ML VIAL SC SCH (17:16)
[2020-05-26] MEDS: IMMUNE GLOBULIN IV SCH (17:34)
[2020-05-26 20:00] VITALS: BP_SYST 137; BP_SYST 142; BP_DIAS 86; BP_DIAS 92
--- NOTE | 2020-05-26 23:08 | Consultation ---
DATE OF CONSULTATION: Neurology Consultation HISTORY OF PRESENT ILLNESS: I am seeing the patient for concern of elevated intracranial pressure noted based on imaging on the CT scan. However, the patient denies any complaints of persistent headache. She does state that she has previous history of headaches, occasionally blurred vision and one time, she had blurred vision in the right eye. No nausea, vomiting, or double vision or persistent headaches. She has lymphadenopathy, bleeding gums, pancytopenia, . When the CT brain was done that was found to have a small ventricles concerning for elevated ICP. PAST MEDICAL HISTORY: She has a past medical history of iron deficiency anemia, hypertension, insomnia, rheumatoid arthritis, obesity, multiple surgeries in the past. She has a history of diagnosed ITP as well, and she has been currently low platelet counts. PHYSICAL EXAMINATION: GENERAL: Her exam, however, she is calm, responsive, sitting up in bed, very pleasant and chatty. VITAL SIGNS: Her temperature is 97.9, heart rate is 94, blood pressure 114/64. HEENT: Extraocular muscles intact. Face symmetric. Tongue is midline. Speech is clear. Strength is 5/5 in upper extremities. Reflexes are 1/4. ABDOMEN: Soft and nontender. There is no ataxia on exam. ASSESSMENT AND PLAN: The patient with possible quite history of elevated intracranial pressure. However, she is not a candidate now for spinal tap. Given her low platelet counts and her history does not quite fit the diagnosis despite the CT scan. I think we are going to start empirically on just topiramate, have her see Ophthalmology as an outpatient and then we get an evaluation for papilledema, before we do a spinal tap. I do not feel a need for an acute MRI at this time and I will just get a prolactin level to check hormonal function and we will also get a topiramate and depending on her symptoms risk, possibly need an EEG in the future. JEN KING MD RR/MODL /[id number]
[2020-05-27] VITALS (8 sets, daily range): BP systolic 96–122; BP diastolic 47–80
[2020-05-27 01:00] LABS: BASOPHILS % 0.2 % (0.0-1.0); LYMPHOCYTES % 13.3 % (18.0-39.1); MEAN CORPUSCULAR HEMOGLOBIN 29.3 pg (28-32); MEAN CORPUSCULAR HGB CONC 31.4 g/dL (31-35); MEAN CORPUSCULAR VOLUME 93.3 fL (81-99); MONOCYTES # (AUTO) 0.6 (0.2-0.8); MONOCYTES % 4.1 % (4.4-11.3); NEUTROPHILS # (AUTO) 11.9 (2.1-6.9); NEUTROPHILS % 79.3 % (38.7-80.0); PLATELET COUNT 123 x10e3/uL (140-360); RED BLOOD COUNT 2.25 x10e6/uL (3.6-5.1); RED CELL DISTRIBUTION WIDTH 17.1 % (11.7-14.4)
[2020-05-27 01:02] LABS: HEMOGLOBIN 6.6 g/dL (12.0-16.0)
--- NOTE | 2020-05-27 01:25 | NUR ---
PER MD JAWED REQUEST, PAGED WITH CBC RESULTS. AWAITING CALLBACK.
--- NOTE | 2020-05-27 04:44 | NUR ---
IM- progress note O/N see below REVIEW OF SYSTEMS: Denies any dizziness, chest pain, fever, chills, sweats, nausea, vomiting, diarrhea, headache. PHYSICAL EXAMINATION VITAL SIGNS: Have been reviewed. GENERAL: A tired-appearing woman resting in bed. HEENT: Anicteric. CARDIOVASCULAR: Normal S1 and S2. LUNGS: mod bs ABDOMEN: mildly tender left pelvic region EXTREMITIES: No edema or calf tenderness. NEUROLOGICAL: Alert and oriented times 3. She moves all extremities. SKIN: Dry. PSYCHIATRIC: Normal affect. LABS: Reviewed. MEDICATIONS: Reviewed. ASSESSMENT: 29yoF Pancytopenia- IVIG; will need steroids for home use. Hx B/L axillary and Mediastinal LAD and Pelvic LAD- check CT chest/abd/pelvis; Had benign Bx in past; Had Oncological w-up in past. Severe Obesity- hba1c 4.9 in May BMI 43- as above RA- contributory to pancytopenia. steroids; outpt mgmt. Prop: lovenox; pepcid dispo: f/u studies; check CBC later today; 9-16 f/u blood counts; continue IVIG. Plan for home steroids. 9-17 counts improving; D#3 of IVIG; also on IV steroids; f/u neuro recs regarding abnormal findings on head CT. Awaiting PRBC transfusion after further crossmatching. 9-18 f/u counts; cont care; Stephen Crocker MD, PhD.
--- NOTE | 2020-05-27 07:00 | NUR ---
RCD PT AT BED PT IS ALERT AND ORIENTED PT RESTING ON BED IV PATENT BY SALINE FLUSH BED LOW AND LOCKED CALL LIGHT IN REACH
[2020-05-27] MEDS: FERROUS SULFATE 325 MG TAB PO SCH ×2 (07:01→17:14)
[2020-05-27] MEDS: NIFEDIPINE CR 30 MG TAB PO SCH (09:00)
[2020-05-27] MEDS: METHYLPREDNISOLONE SOD SUCC 40 MG/ML VIAL 1ML IV SCH ×2 (09:00→21:00)
[2020-05-27] MEDS: TOPIRAMATE 25 MG TAB PO SCH ×2 (09:00→16:22)
[2020-05-27] MEDS: LABETALOL HCL 100 MG TAB PO SCH ×2 (09:00→21:00)
--- NOTE | 2020-05-27 10:00 | NUR ---
TALKED TO LAB REGARDING BLOOD TRANSFUSION THEY SAID PT HAVE ANTIBODY ,THEY TRYING TO GET AN EARLIER
[2020-05-27] MEDS ORDERED: SODIUM FERRIC GLUCONATE COMPLX 125 MG in SODIUM CHLORIDE 0.9% 100 ML 100 ML IV ONE (11:00)
[2020-05-27] MEDS ORDERED: ONDANSETRON HCL 4 MG ORAL DISINTEGRATING TAB PO PRN (11:00)
--- NOTE | 2020-05-27 15:09 | NUR ---
calm awake 97.9 115/58 GENERAL: Her exam, however, she is calm, responsive, sitting up in bed, very pleasant and chatty. VITAL SIGNS: Her temperature is 97.9, heart rate is 94, blood pressure 114/64. HEENT: Extraocular muscles intact. Face symmetric. Tongue is midline. Speech is clear. Strength is 5/5 in upper extremities. Reflexes are 1/4. ABDOMEN: Soft and nontender. There is no ataxia on exam. ASSESSMENT AND PLAN: The patient with possible quite history of elevated intracranial pressure. However, she is not a candidate now for spinal tap. stable tolerating topiramate
[2020-05-27] MEDS: EPOETIN ALFA-EPBX 10,000 UNIT/ML VIAL SC SCH (16:22)
--- NOTE | 2020-05-27 18:56 | NUR ---
PT RESTING ON BED BED SIDE REPORT GIVEN TO ONCOMING NURSE
[2020-05-28] VITALS (8 sets, daily range): BP systolic 98–124; BP diastolic 56–80
[2020-05-28 05:28] LABS: BASOPHILS # (AUTO) 0.1 (0.0-0.1); BASOPHILS % 0.3 % (0.0-1.0); HEMATOCRIT 25.1 % (34.2-44.1); HEMOGLOBIN 7.6 g/dL (12.0-16.0); LYMPHOCYTES # (AUTO) 2.5 (1.0-3.2); LYMPHOCYTES % 12.6 % (18.0-39.1); MEAN CORPUSCULAR HEMOGLOBIN 28.9 pg (28-32); MEAN CORPUSCULAR HGB CONC 30.3 g/dL (31-35); MEAN CORPUSCULAR VOLUME 95.4 fL (81-99); MONOCYTES # (AUTO) 0.8 (0.2-0.8); MONOCYTES % 3.8 % (4.4-11.3); NEUTROPHILS # (AUTO) 15.7 (2.1-6.9); NEUTROPHILS % 79.2 % (38.7-80.0); PLATELET COUNT 277 x10e3/uL (140-360); RED BLOOD COUNT 2.63 x10e6/uL (3.6-5.1)
[2020-05-28] MEDS: FERROUS SULFATE 325 MG TAB PO SCH ×2 (06:15→17:19)
--- NOTE | 2020-05-28 06:19 | NUR ---
IM- progress note O/N see below REVIEW OF SYSTEMS: Denies any dizziness, chest pain, fever, chills, sweats, nausea, vomiting, diarrhea, headache. PHYSICAL EXAMINATION VITAL SIGNS: Have been reviewed. GENERAL: A tired-appearing woman resting in bed. HEENT: Anicteric. CARDIOVASCULAR: Normal S1 and S2. LUNGS: mod bs ABDOMEN: mildly tender left pelvic region EXTREMITIES: No edema or calf tenderness. NEUROLOGICAL: Alert and oriented times 3. She moves all extremities. SKIN: Dry. PSYCHIATRIC: Normal affect. LABS: Reviewed. MEDICATIONS: Reviewed. ASSESSMENT: 29yoF Pancytopenia- IVIG; will need steroids for home use. Hx B/L axillary and Mediastinal LAD and Pelvic LAD- check CT chest/abd/pelvis; Had benign Bx in past; Had Oncological w-up in past. Severe Obesity- hba1c 4.9 in May BMI 43- as above RA- contributory to pancytopenia. steroids; outpt mgmt. Prop: lovenox; pepcid dispo: f/u studies; check CBC later today; -16 f/u blood counts; continue IVIG. Plan for home steroids. 9-17 counts improving; D#3 of IVIG; also on IV steroids; f/u neuro recs regarding abnormal findings on head CT. Awaiting PRBC transfusion after further crossmatching. -18 f/u counts; cont care; 19 counts continue to improve; Stephen Crocker MD, PhD.
--- NOTE | 2020-05-28 06:30 | NUR ---
CALLED LAB REGARDING BLOOD FOR TRANSFUSION. TURN DOWN WORKER SAID BLOOD IS STILL NOT AVAILABLE.
--- NOTE | 2020-05-28 07:05 | NUR ---
RCD PT AT BED PT IS ALERT AND ORIENTED PT RESTING ON BED IV PATENT BY SALINE FLUSH BED LOW AND LOCKED CALL LIGHT IN REACH
[2020-05-28] MEDS: METHYLPREDNISOLONE SOD SUCC 40 MG/ML VIAL 1ML IV SCH (08:45)
[2020-05-28] MEDS: SODIUM FERRIC GLUCONATE COMPLX 125 MG in SODIUM CHLORIDE 0.9% 100 ML 100 ML IV SCH (09:00)
[2020-05-28] MEDS: TOPIRAMATE 25 MG TAB PO SCH ×2 (09:00→17:00)
[2020-05-28] MEDS: LABETALOL HCL 100 MG TAB PO SCH ×2 (09:00→20:53)
[2020-05-28] MEDS: PREDNISONE 20 MG TAB PO SCH (09:00)
[2020-05-28] MEDS: NIFEDIPINE CR 30 MG TAB PO SCH (09:00)
[2020-05-28] MEDS: PANTOPRAZOLE SOD 40 MG TABEC PO SCH ×2 (11:30→16:30)
--- NOTE | 2020-05-28 12:55 | NUR ---
EFREN TEST POSITIVE PAGED DR HUERTA TO NOTIFY THAT
--- NOTE | 2020-05-28 13:20 | NUR ---
DR REYES RETURNED THE CALL SHE SAID ITS OK NO NEW ORDERS
--- NOTE | 2020-05-28 13:43 | NUR ---
REFERRING PHYSICIAN: Dr. Stephen Crocker CONSULTING PHYSICIAN: Dr. Maggie Busch REASON FOR CONSULTATION: Thrombocytopenia, pancytopenia, bleeding CC: Events noted. REVIEW OF SYSTEMS: 14 point ROS negative unless otherwise stated in the HPI. PHYSICAL EXAM: Vital signs: Reviewed per MAR, afebrile General: NAD, morbid obesity HEENT: NT, AT Neck: Supple Cardiovascular: RRR Pulmonary: Decreased breath sounds bilaterally Abdomen: Soft, NTND, BS x 4 Musculoskeletal: Moves all Extremities: No cyanosis, no edema Neurologic: Awake, alert Psychiatric: Cooperative LABORATORY/RADIOLOGY DATA: 05/27/2020: WBC: 15.02 Hgb: 6.6 Hct: 21.0 Platelet: 123 Haptoglobin: <10 Prolactin: Pending 05/26/2020: WBC: 8.11 Hgb: 6.4 Hct: 20.7 Platelet: 66 Retic: 4.6 Iron: 50 TIBC: 185 Fe % Sat: 19 Ferritin: 432 Folic acid: 7.6 B12: 930 COVID: Negative CT brain: No acute intracranial abnormalities. Findings as described are most consistent with idiopathic intracranial hypertension. ASSESSMENT/PLAN: Ms. Zhu is a pleasant 29 yo F with past medical history of hypertension and anemia requiring PRBC transfusion and recently diagnosed ITP wh o was sent to the ER after being evaluated in our clinic on 05/24/20 and found to have critical thrombocytopenia of 1,000. She was recently admitted earlier in May 2020 due to gum bleeding and petechial rash and found to have critica l thrombocytopenia. She received 2 jumbo platelet transfusion with minimal response in platelet count. She was subsequently started on IV steroids and IVIG with significant improvement. Patient was discharged on PO prednisone however for unclear reasons did not end up taking it at home. She presented for follow-up appointment and stat labs revealed severe thrombocytopenia subsequently patient was advised to present to the ER. Hematology/Oncology has been consulted to assist with the management. 1. Thrombocytopenia: Appears possible immune mediated. Workup on previous admission revealed negative DIC panel and acute hepatitis panel. INR remains normal. Will hold off on transfusion as patient did not respond to it previously, had good response to IVIG and steroids. S/P 3-day course of IVIG. Platelet count significantly improved on morning labs. CHARLES elevated at 1:1280(november 2019), concern for Colon syndrome in the setting of an autoimmune d isorder.Patient will benefit from Outpatient evaluation by Rheumatology.Plan for Rituxan outpatient on Discharge.Plan to d/c solumedrol and start prednisone 60mg and follow.Monitor closely. 2. Petechial lesions: Likely secondary to #1 possible ITP. Monitor for now. 3. Anemia: Likely acute on chronic secondary to menorrhagia. Anemia panel appears predominantly YANICK. Noted elevated retic count and LDH, haptoglobin less than 10, concerning for hemolysis. Will obtain Akua test to assess for autoimmune hemolytic anemia. Hemoglobin in the 6-range, 1 unit PRBC requested however not available yet as blood bank having difficulty finding match due to presence of antibodies. 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 4. Headache: Patient reporting headache in the ER. CT brain obtained to rule out bleed due to thrombocytopenia. CT brain negative for acute abnormality, did reveal findings suggestive of idiopathic intracranial hypertension. Neurology on board, plans for outpatient Ophthalmology evaluation, possible EEG. Patient started on Topamax. Monitor. 5. Lymphadenopathy/hilar mass: Previous CT chest in November [address] and hilar mass from infection, however, underlying malignancy could not be ruled out. Left axillary LN biopsy in December 2019 negative for malignancy per patient. CT C/A/P revealed bilateral axillary lymphadenopathy noted again with interval excisional biopsy of one L axillary node as well as mild bilateral pelvic and inguinal adenopathy without significant change. Patien t may benefit from PETCT scan which can be done outpatient. 6. Leukopenia: Uncertain etiology. Intermittent low counts after reviewing previous medical records. Due to pancytopenia, patient may benefit from FISH/flow cytometry and possible bone marrow biopsy in the outpatient setting pending further workup. Patient now with Leukocytosis, likely secondary to steroids. Afebrile. Monitor for now. 7. DVT proph: SCDs . Thank you for the consult. I will be available. Please call with questions.
--- NOTE | 2020-05-28 18:39 | NUR ---
PT RESTING ON BED BED SIDE REPORT GIVEN TO ONCOMING NURSE
[2020-05-29] VITALS: BP 110/60
[2020-05-29 04:00] VITALS: BP 98/53
[2020-05-29 05:19] LABS: BASOPHILS % 0.2 % (0.0-1.0); HEMATOCRIT 26.1 % (34.2-44.1); LYMPHOCYTES # (AUTO) 3.3 (1.0-3.2); LYMPHOCYTES % 16.9 % (18.0-39.1); MEAN CORPUSCULAR HEMOGLOBIN 30.1 pg (28-32); MEAN CORPUSCULAR HGB CONC 30.7 g/dL (31-35); MEAN CORPUSCULAR VOLUME 98.1 fL (81-99); MONOCYTES # (AUTO) 1.2 (0.2-0.8); MONOCYTES % 6.3 % (4.4-11.3); NEUTROPHILS # (AUTO) 13.9 (2.1-6.9); NEUTROPHILS % 71.9 % (38.7-80.0); PLATELET COUNT 339 x10e3/uL (140-360); RED BLOOD COUNT 2.66 x10e6/uL (3.6-5.1); RED CELL DISTRIBUTION WIDTH 18.6 % (11.7-14.4)
[2020-05-29 06:13] LABS: ALANINE AMINOTRANSFERASE 27 IU/L (0-55); ALBUMIN 3.2 g/dL (3.5-5.0); ALBUMIN/GLOBULIN RATIO 0.5 (0.8-2.0); ALKALINE PHOSPHATASE 26 IU/L (40-150); ANION GAP 9.2 mmol/L (8-16); BLOOD UREA NITROGEN 24 mg/dL (7-26); BUN/CREATININE RATIO 22 (6-25); CALCIUM 8.3 mg/dL (8.4-10.2); CARBON DIOXIDE 21 mmol/L (22-29); CHLORIDE 107 mmol/L (98-107); CREATININE, SERUM 1.07 mg/dL (0.57-1.11); EST GLOMERULAR FILTRATION RATE > 60 ML/MIN (60-); GLUCOSE 158 mg/dL (74-118); POTASSIUM 4.2 mmol/L (3.5-5.1); SODIUM 133 mmol/L (136-145)
[2020-05-29] MEDS: FERROUS SULFATE 325 MG TAB PO SCH (06:19)
--- NOTE | 2020-05-29 06:56 | NUR ---
D/C summary ITP Pancytopenia- IVIG; will need steroids for home use. Hx B/L axillary and Mediastinal LAD and Pelvic LAD- check CT chest/abd/pelvis; Had benign Bx in past; Had Oncological w-up in past. Severe Obesity- hba1c 4.9 in May BMI 43- as above RA- contributory to pancytopenia. steroids; outpt mgmt. Prop: lovenox; pepcid dispo: f/u studies; check CBC later today; 9-16 f/u blood counts; continue IVIG. Plan for home steroids. 9-17 counts improving; D#3 of IVIG; also on IV steroids; f/u neuro recs regarding abnormal findings on head CT. Awaiting PRBC transfusion after further crossmatching. -18 f/u counts; cont care; -19 counts continue to improve; 9-20 improving; d/c planning; d/c home on prednisone taper, 60mg for 10 days, then 40mg for 10 days, then 20mg for 10 days stable d/c>35 mins f/u and 1 week, and 2 days Stephen Crocker MD, PhD.
--- NOTE | 2020-05-29 07:00 | NUR ---
RCD PT AT BED PT IS ALERT AND ORIENTED PT RESTING ON BED IV PATENT BY SALINE FLUSH BED LOW AND LOCKED CALL LIGHT IN REACH
[2020-05-29] MEDS: PANTOPRAZOLE SOD 40 MG TABEC PO SCH (07:30)
[2020-05-29] MEDS ORDERED: PROTONIX40 MG/ML PO (07:37)
[2020-05-29] MEDS ORDERED: TOPAMAX25 MG PO (07:37)
[2020-05-29] MEDS ORDERED: PREDNISONE20 MG PO ×2 (07:37→07:41)
[2020-05-29 07:55] VITALS: BP 80/48
[2020-05-29 08:59] VITALS: BP 80/48
[2020-05-29] MEDS: LABETALOL HCL 100 MG TAB PO SCH (09:00)
[2020-05-29] MEDS: SODIUM FERRIC GLUCONATE COMPLX 125 MG in SODIUM CHLORIDE 0.9% 100 ML 100 ML IV SCH (09:00)
[2020-05-29] MEDS: TOPIRAMATE 25 MG TAB PO SCH (09:00)
[2020-05-29] MEDS: PREDNISONE 20 MG TAB PO SCH (09:00)
[2020-05-29] MEDS: NIFEDIPINE CR 30 MG TAB PO SCH (09:00)
[2020-05-29] MEDS ORDERED: PREDNISONE50 MG PO (09:18)
[2020-05-29 09:50] VITALS: BP 102/76
--- NOTE | 2020-05-29 10:09 | NUR ---
PT WENT HOME IN SAFE CONDITION WITH HER
--- NOTE | 2020-05-29 18:02 | NUR ---
CONSULTING PHYSICIAN: Dr. Maggie Busch REASON FOR CONSULTATION: Thrombocytopenia, pancytopenia, bleeding LATE ENTRY.Patient seen and examined at 8:30am CC: Events noted. REVIEW OF SYSTEMS: 14 point ROS negative unless otherwise stated in the HPI. PHYSICAL EXAM: Vital signs: Reviewed per MAR, afebrile General: NAD, morbid obesity HEENT: NT, AT Neck: Supple Cardiovascular: RRR Pulmonary: Decreased breath sounds bilaterally Abdomen: Soft, NTND, BS x 4 Musculoskeletal: Moves all Extremities: No cyanosis, no edema Neurologic: Awake, alert Psychiatric: Cooperative LABORATORY/RADIOLOGY DATA: 05/27/2020: WBC: 15.02 Hgb: 6.6 Hct: 21.0 Platelet: 123 Haptoglobin: <10 Prolactin: Pending 05/26/2020: WBC: 8.11 Hgb: 6.4 Hct: 20.7 Platelet: 66 Retic: 4.6 Iron: 50 TIBC: 185 Fe % Sat: 19 Ferritin: 432 Folic acid: 7.6 B12: 930 COVID: Negative CT brain: No acute intracranial abnormalities. Findings as described are most consistent with idiopathic intracranial hypertension. ASSESSMENT/PLAN: Ms. Zhu is a pleasant 29 yo F with past medical history of hypertension and anemia requiring PRBC transfusion and recently diagnosed ITP wh o was sent to the ER after being evaluated in our clinic on 05/24/20 and found to have critical thrombocytopenia of 1,000. She was recently admitted earlier in May 2020 due to gum bleeding and petechial rash and found to have critica l thrombocytopenia. She received 2 jumbo platelet transfusion with minimal response in platelet count. She was subsequently started on IV steroids and IVIG with significant improvement. Patient was discharged on PO prednisone however for unclear reasons did not end up taking it at home. She presented for follow-up appointment and stat labs revealed severe thrombocytopenia subsequently patient was advised to present to the ER. Hematology/Oncology has been consulted to assist with the management. 1. Thrombocytopenia: Appears possible immune mediated. Workup on previous admission revealed negative DIC panel and acute hepatitis panel. INR remains normal. Will hold off on transfusion as patient did not respond to it previously, had good response to IVIG and steroids. S/P 3-day course of IVIG. Platelet count significantly improved on morning labs. CHARLES elevated at 1:1280(november 2019), concern for Colon syndrome in the setting of an autoimmune d isorder.Patient will benefit from Outpatient evaluation by Rheumatology.Plan for Rituxan outpatient on Discharge.Patient started on prednisone 60mg and follow.Monitor closely. 2. Petechial lesions: Likely secondary to #1 possible ITP. Monitor for now. 3. Anemia: Likely acute on chronic secondary to menorrhagia. Anemia panel appears predominantly YANICK. Noted elevated retic count and LDH, haptoglobin less than 10, concerning for hemolysis. Will obtain Akua test to assess for autoimmune hemolytic anemia. Hemoglobin in the 6-range, 1 unit PRBC requested however not available yet as blood bank having difficulty finding match due to presence of antibodies. 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 4. Headache: Patient reporting headache in the ER. CT brain obtained to rule out bleed due to thrombocytopenia. CT brain negative for acute abnormality, did reveal findings suggestive of idiopathic intracranial hypertension. Neurology on board, plans for outpatient Ophthalmology evaluation, possible EEG. Patient started on Topamax. Monitor. 5. Lymphadenopathy/hilar mass: Previous CT chest in November [address] and hilar mass from infection, however, underlying malignancy could not be ruled out. Left axillary LN biopsy in December 2019 negative for malignancy per patient. CT C/A/P revealed bilateral axillary lymphadenopathy noted again with interval excisional biopsy of one L axillary node as well as mild bilateral pelvic and inguinal adenopathy without significant change. Patien t may benefit from PETCT scan which can be done outpatient. 6. Leukopenia: Uncertain etiology. Intermittent low counts after reviewing previous medical records. Due to pancytopenia, patient may benefit from FISH/flow cytometry and possible bone marrow biopsy in the outpatient setting pending further workup. Patient now with Leukocytosis, likely secondary to stero ids. Afebrile. Monitor for now. 7. DVT proph: SCDs . Thank you for the consult. I will be available. Please call with questions.
== END 2020-05-29 10:13 | disposition home or self-care (01) | DRG 813 ==
LOC: ER 16:43 → ERHOLD 16:46 → MED/SURG 17:55
PROVIDERS: ADMIT Internal Medicine; ATTEND Internal Medicine
DX: D69.3 Immune thrombocytopenic purpura (principal); D61.811 Other drug-induced pancytopenia; D61.818 Other pancytopenia; Z68.41 Body mass index [BMI] 40.0-44.9, adult; D62 Acute posthemorrhagic anemia; I10 Essential (primary) hypertension; Z88.1 Allergy status to other antibiotic agents; Z11.59 Encounter for screening for other viral diseases; E66.01 Morbid (severe) obesity due to excess calories; M06.9 Rheumatoid arthritis, unspecified; T38.0X5A Adverse effect of glucocorticoids and synthetic analogues, initial encounter; R59.0 Localized enlarged lymph nodes; N92.0 Excessive and frequent menstruation with regular cycle; R51 Headache; D72.819 Decreased white blood cell count, unspecified
CPT/HCPCS: 36415; 70450; 80053; 80307; 82607; 82728; 82746; 83010; 83540; 83615; 84146; 84466; 85025; 85045; 85610; 85730; 86039; 86850; 86870; 86880; 86900; 86905; 86920; 99001; 99284; J2916; J2920; J2930; J7030; J7050; J7512; U0002

== ENCOUNTER 2020-07-10 04:48 | Emergency (ER) | payer BC ==
[~2020-07-10] VITALS: Ht 167.6 cm; Wt 122.9 kg
[~2020-07-10 04:48] MED LIST changes: +PREDNISONE20 MG PO; +PREDNISONE50 MG PO; +PROTONIX40 MG/ML PO; +TOPAMAX25 MG PO
[2020-07-10] MEDS ORDERED: MORPHINE SULFATE INJ 4 MG/ML INJ 1ML IV STA (04:58)
[2020-07-10] MEDS ORDERED: ONDANSETRON HCL INJ 2MG/ML 2ML 2 MG/ML VIAL IV STA (04:58)
[2020-07-10] MEDS ORDERED: SODIUM CHLORIDE 0.9% 1000ML 1,000 ML IV ONE ×2 (05:00→06:30)
[2020-07-10 05:11] LABS: BASOPHILS # (AUTO) 0.1 (0.0-0.1); BASOPHILS % 0.3 % (0.0-1.0); HEMATOCRIT 42.6 % (34.2-44.1); HEMOGLOBIN 14.1 g/dL (12.0-16.0); LYMPHOCYTES # (AUTO) 2.9 (1.0-3.2); LYMPHOCYTES % 13.9 % (18.0-39.1); MEAN CORPUSCULAR HEMOGLOBIN 30.5 pg (28-32); MEAN CORPUSCULAR HGB CONC 33.1 g/dL (31-35); MEAN CORPUSCULAR VOLUME 92.2 fL (81-99); MONOCYTES # (AUTO) 1.2 (0.2-0.8); MONOCYTES % 5.8 % (4.4-11.3); NEUTROPHILS # (AUTO) 16.2 (2.1-6.9); NEUTROPHILS % 79.3 % (38.7-80.0); PLATELET COUNT 255 x10e3/uL (140-360); RED BLOOD COUNT 4.62 x10e6/uL (3.6-5.1); RED CELL DISTRIBUTION WIDTH 14.5 % (11.7-14.4)
[2020-07-10 05:36] LABS: AMYLASE 249 U/L (25-125); LIPASE 401 U/L (8-78)
[2020-07-10 05:38] LABS: ALBUMIN 4.3 g/dL (3.5-5.0); ALBUMIN/GLOBULIN RATIO 0.9 (0.8-2.0); ANION GAP 25.9 mmol/L (8-16); CREATININE, SERUM 1.88 mg/dL (0.57-1.11); POTASSIUM 4.9 mmol/L (3.5-5.1)
[2020-07-10 05:46] LABS: CREATINE KINASE MB 13.3 ng/mL (0-5.0)
[2020-07-10 06:00] LABS: CLARITY,URINE SL CLOUDY (CLEAR); COLOR,URINE YELLOW (YELLOW)
[2020-07-10 06:01] LABS: LEUKOCYTE ESTERASE ,URINE NEGATIVE (NEGATIVE); NITRITE,URINE NEGATIVE (NEGATIVE); PROTEIN,URINE DIPSTICK 1+ (NEGATIVE)
[2020-07-10 06:02] LABS: BILIRUBIN,URINE SMALL (NEGATIVE); KETONES,URINE >=160 (NEGATIVE); URINE UROBILINOGEN 0.2 mg/dL (0.2 - 1)
[2020-07-10 06:03] LABS: PREGNANCY TEST, URINE NEGATIVE (NEGATIVE)
[2020-07-10] MEDS ORDERED: PIPER-TAZ 3.375 GM 50 ML IV STA (06:07)
[2020-07-10] MEDS ORDERED: PIPERACILLIN/TAZO 4.5 GM 100 ML IV STA (06:09)
[2020-07-10] MEDS ORDERED: PIPERACILLIN/TAZO 4.5 GM 100 ML IV ONE (06:16)
[2020-07-10] MEDS ORDERED: SODIUM CHLORIDE 0.9% 1000ML 1,000 ML ONE (06:26)
[2020-07-10] MEDS ORDERED: INSULIN REGULAR, HUMAN 100 UNIT/1 ML 3ML VIAL IV ONE (06:30)
[2020-07-10 06:36] LABS: WBC,URINE (MAN) 21-50 /HPF (0-5)
[2020-07-10 06:37] LABS: BACTERIA,URINE RARE /HPF; EPITHELIAL CELLS,URINE FEW /LPF
[2020-07-10] MEDS ORDERED: SODIUM CHLORIDE 0.9% 1000ML 1,000 ML IV STA (06:54)
[2020-07-10] MEDS ORDERED: INSULIN REGULAR, HUMAN 3ML VL 300 UNIT in SODIUM CHLORIDE 0.45% 100 ML 300 ML IV SCH ×2 (07:00)
[2020-07-10] MEDS ORDERED: DEXTROSE 50% SYRINGE 50 ML IV PRN (07:00)
[2020-07-10 07:01] LABS: ABG PCO2 24 mmHg (35-45); ABG PH 7.24 (7.35-7.45); ABG PO2 117 mmHg (80-105)
[2020-07-10 07:02] LABS: ABG HCO3 10 mmol/L (22-26); ABG TCO2 11
[2020-07-10] MEDS ORDERED: INSULIN REGULAR, HUMAN 100 UNIT/1 ML 3ML VIAL ONE (07:16)
[2020-07-10] MEDS ORDERED: SODIUM CHLORIDE 0.9% 100 ML ONE (07:20)
[2020-07-10] MEDS ORDERED: INSULIN REGULAR, HUMAN 3ML VL 100 UNIT in SODIUM CHLORIDE 0.9% 100 ML 100 ML SQ STA ×2 (07:35)
== END 2020-07-10 08:00 | disposition other institution (70) ==
LOC: ER 05:00
DX: K85.90 Acute pancreatitis without necrosis or infection, unspecified (principal); K80.20 Calculus of gallbladder without cholecystitis without obstruction; R10.10 Upper abdominal pain, unspecified; E11.10 Type 2 diabetes mellitus with ketoacidosis without coma; N39.0 Urinary tract infection, site not specified; R11.2 Nausea with vomiting, unspecified; I10 Essential (primary) hypertension; D69.3 Immune thrombocytopenic purpura
CPT/HCPCS: 36415; 36600; 76705; 80053; 81001; 81025; 82150; 82550; 82553; 82805; 82948; 83605; 83690; 84484; 85025; 87040; 93005; 99284; J1817; J2270; J2405; J2543; J7030; J7050

== ENCOUNTER 2021-04-25 11:30 | Emergency (ER) | payer BC ==
[~2021-04-25] VITALS: Ht 167.6 cm; Wt 122.9 kg
[2021-04-25] MEDS ORDERED: KETOROLAC TROMETHAMINE 30 MG/ML VIAL IM STA (11:49)
[2021-04-25] MEDS ORDERED: ACETAMINOPHEN 325 MG TAB PO ONE (12:00)
[2021-04-25] MEDS ORDERED: KETOROLAC TROMETHAMINE 60 MG/2 ML VIAL ONE (12:02)
== END 2021-04-25 12:15 | disposition home or self-care (01) ==
LOC: ER 11:49
DX: R51.9 Headache, unspecified (principal); I10 Essential (primary) hypertension; D64.9 Anemia, unspecified; M32.9 Systemic lupus erythematosus, unspecified; D69.3 Immune thrombocytopenic purpura
CPT/HCPCS: 99283; J1885